=== PATIENT | female | born 1940 | race Caucasian/White ===

== ENCOUNTER 2016-07-10 16:08 | Emergency (ER) | payer OTHER ==
[~2016-07-10] VITALS: Ht 167.6 cm; Wt 63.4 kg
[~2016-07-10 16:08] MED LIST: AZITTAB PO
[2016-07-10 16:13] VITALS: Ht 167.6 cm; Wt 63.4 kg
[2016-07-10] MEDS ORDERED: BUPIVACAINE 0.5 % 5 MG/1 ML MPF 30ML VIAL INFIL STA (16:23)
[2016-07-10] MEDS ORDERED: XYLOCAINE 1%/SOD BICARB 20 ML VIAL INFIL STA (16:23)
[2016-07-10] MEDS ORDERED: DIPHTHERIA/TETANUS/PERTUSSIS 0.5 ML SYR/VIAL IM. ONE (16:30)
[2016-07-10] MEDS ORDERED: GLC500 PO (16:47)
[2016-07-10] MEDS ORDERED: LOSA50TA6 PO (16:47)
[2016-07-10] MEDS ORDERED: HYG25 PO (16:47)
[2016-07-10] MEDS ORDERED: CHOL1000 PO (16:47)
[2016-07-10] MEDS ORDERED: SIMV40TA2 PO (16:47)
--- NOTE | 2016-07-10 17:20 | EMERGENCY ROOM VISIT NOTE ---
ED Visit Note First contact with patient: 16:17 I have seen and examined this patient with Dennys Duke and generally agree with the treatment plan as discussed. Problem List Medical Problems: (1) Diabetes Status: Chronic (2) Hypertension Status: Chronic Current/Historical Medications Scheduled Chlorthalidone (Chlorthalidone), 12.5 MG PO DAILY Cholecalciferol (Vitamin D3), 1 TAB PO DAILY Losartan Potassium (Cozaar), 50 MG PO DAILY Metformin HCl (Metformin HCl), 500 MG PO DAILY Simvastatin (Zocor), 40 MG PO QPM Allergies Uncoded Allergies: AB (Allergy, Unknown, hives, 01/20/16) Vital Signs Date Time Temp Pulse Resp B/P Pulse Ox O2 Delivery O2 Flow Rate FiO2 07/10/16 16:13 37.4 92 18 131/80 94 Room Air Medications Administered Medications (Trade) Dose Ordered Sig/Sandy Route Start Time Stop Time Status Last Admin Dose Admin Diphtheria/ Pertussis/Tetanus Vacc (Adacel Inj) 0.5 ml ONCE ONCE IM. 07/10/16 16:30 07/10/16 16:31 DC 07/10/16 17:11 0.5 ML Departure Information Referrals Kerri Kaufman PA-C (PCP) Patient Instructions My [facility]
[2016-07-10] MEDS ORDERED: CEPH500C PO (17:51)
--- NOTE | 2016-07-10 17:52 | EMERGENCY ROOM VISIT NOTE ---
ED Visit Note First contact with patient: 16:17 Chief Complaint: Right finger injury History of Present Illness: This patient is a 75 year old female who presents to the Emergency Department via private vehicle for evaluation of their left index finger laceration. Patient sustained the laceration while attempting to remove linoleum from the floor and would when a nail from the piece of wood struck her finger. They report a moderate amount of bleeding initially. They deny any numbness or tingling into the distal extremity. They report no decreased range of motion of the affected digit. Patient rates her current discomfort as a 8/10. Patient's Tetanus status is not currently up-to-date. Medications: As noted below Allergies: As noted below PMH: As noted below SHx: Patient lives at home by herself. ROS: All pertinent positive and negative review of systems are appropriately documented in the History of Present Illness. Physical Exam: VITAL SIGNS - Vital signs and nursing notes were reviewed. GENERAL -75-year-old female appearing her stated age who is in no acute distress. Communicates well with provider and answers questions appropriately. SKIN - There is a 2 cm long laceration noted along the ventral aspect of the right index finger pad. The edges gape apart with traction. No foreign bodies appreciated. Upon further examination there are no deep structures including vessel, tendon, or bony structures appreciated. There is minimal active bleeding noted. MUSCULOSKELETAL - Laceration as described above. +5/5 strength appreciated of the affected digit. Full range of motion of the affected digit. NEUROLOGIC - Spinothalamic tract was found to be intact with ability to discriminate sharp versus dull sensation at the level of hip joint down do the great toe. No sensory defects of the dorsal column were appreciated utilizing light touch for evaluation. VASCULAR - Capillary refill was brisk. IMAGING: RIGHT INDEX FINGER 3 VIEWS HISTORY: Right index finger laceration Right COMPARISON: None. FINDINGS: There is no fracture or dislocation. Soft tissue laceration at the distal right index finger. 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 Mild ulnar subluxation at the DIP joint of the index finger is likely due to the long-standing degenerative change. No radiopaque foreign bodies. IMPRESSION: Soft tissue laceration at the distal right index finger. No fractures. Electronically signed by: Easton Crouch M.D. 07/10/2016 5:52 PM Dictated Date/Time: 07/10/2016 5:51 PM ED Course: Patient was seen and evaluated by myself. Risks and benefits of performing primary wound closure versus no repair were discussed with the patient who verbalizes understanding. Verbal consent was obtained prior to performing the procedure. 5 cc of in a 50/50 1% buffered lidocaine and 0.5% bupivacaine was used to perform a digital block of the right index finger . The wound was cleansed and prepped in the typical sterile fashion utilizing normal saline and Betadine. The wound was sterilely draped. Once proper anesthetization was established, the wound was further examined and demonstrated a laceration without deep involvement. The wound was copiously irrigated with normal saline and Betadine. This region was pressure irrigated with normal saline The wound was closed using 6 simple, 5-0 nylon sutures with the wound edges being well approximated. Patient tolerated the procedure well. No complications were met. The wound was cleansed and dressed with a Bacitracin dressing. Patient received their Adacel vaccination. Patient educated on worrisome symptoms for return visit to the Emergency Department. Patient discharged to home in good condition. She was given Keflex 500 mg 3 times a day for 7 days for infection prophylaxis. This was done due to the severity of the laceration as well as being diabetic. Radiograph results as above. The findings were felt to be chronic. Problem List Medical Problems: (1) Diabetes Status: Chronic (2) Hypertension Status: Chronic Current/Historical Medications Scheduled Cephalexin Monohydrate (Keflex), 500 MG PO TID Chlorthalidone (Chlorthalidone), 12.5 MG PO DAILY Cholecalciferol (Vitamin D3), 1 TAB PO DAILY Losartan Potassium (Cozaar), 50 MG PO DAILY Metformin HCl (Metformin HCl), 500 MG PO DAILY Simvastatin (Zocor), 40 MG PO QPM Allergies Uncoded Allergies: AB (Allergy, Unknown, hives, 01/20/16) Vital Signs Date Time Temp Pulse Resp B/P Pulse Ox O2 Delivery O2 Flow Rate FiO2 07/10/16 18:12 37.4 88 18 126/78 95 07/10/16 18:11 88 18 126/78 95 Room Air 07/10/16 16:13 37.4 92 18 131/80 94 Room Air Medications Administered Medications (Trade) Dose Ordered Sig/Sandy Route Start Time Stop Time Status Last Admin Dose Admin Diphtheria/ Pertussis/Tetanus Vacc (Adacel Inj) 0.5 ml ONCE ONCE IM. 07/10/16 16:30 07/10/16 16:31 DC 07/10/16 17:11 0.5 ML Departure Information Impression Primary Impression: Laceration Dispostion Home / Self-Care Condition GOOD Prescriptions Cephalexin Monohydrate (Keflex) 500 Mg Cap 500 MG PO TID for 7 Days, #21 CAP Prov: Dennys Johnson PA-C 07/10/16 Referrals Kerri Kaufman PA-C (PCP) Rohan Connell MD Patient Instructions My [facility] Additional Instructions Discharge Instructions: You have received 6 sutures on your left finger. These sutures are NOT dissolvable and WILL need to be removed by a health care provider in 12 days. You can return to the Emergency Department or contact your Primary Care Provider to have the sutures removed. Proper wound care is essential for adequate wound healing and infection prevention. You can shower and clean the wound with soap and water. Do not scour over the wound, pat dry with a towel. Do not submerse the wound (i.e. bathe or dish wash) until the sutures have been removed. You can use an antibiotic ointment with a dressing over the wound for the next 3-4 days. After this time you may leave the wound dry and open to the air. If crust develops over the wound you can use a Q-tip to apply a 1:1 peroxide:water solution to clean the wound. Keflex 500 mg 3 times daily for 7 days to help prevent infection. Look for signs of infection of the wound including: increased pain, swelling, foul discharge, streaking, or increased temperature. If any of these are noticed you should return to the Emergency Department for further assessment and treatment. As with any laceration you may have received nerve damage to the surrounding tissues. This damage may or may not be permanent. You should keep the area covered with sunscreen for the first 6 months to 1 year when at risk for exposure to help minimize scarring. You can also use scar reducing creams or Vitamin E oil to help minimize scarring. For pain control, you can use the following [id number] medicines (if >12 yo): - Regular strength (325mg/tab) Tylenol (acetaminophen) 2 tabs every 4-6 hours as needed. Do not exceed 12 tablets in a 24 hour period. Avoid taking more than 4 grams (4000 mg) of Tylenol per day. This includes any other sources of acetaminophen you may take on a regular basis. - Regular strength (200 mg/tab) Advil (ibuprofen) 1-2 tabs every 4-6 hours as needed. Do not exceed a dose of 3200 mg per day. You've been provided the phone number for an production support specialist for your finger. Please call them as soon as possible schedule follow-up regarding today 's visit. Return to the emergency department if your symptoms worsen despite treatment course outlined above.
[2016-07-10 18:12] VITALS: BP 126/78; PULSE 88; TEMP 37.4; O2SAT 95
== END 2016-07-10 18:13 | disposition home or self-care (01) ==
LOC: C.EDB 16:09 → C.EDD 18:13
DX: S61.210A Laceration without foreign body of right index finger without damage to nail, initial encounter (principal); W26.8XXA Contact with other sharp object(s), not elsewhere classified, initial encounter; Z23 Encounter for immunization; E11.9 Type 2 diabetes mellitus without complications; I10 Essential (primary) hypertension; Z79.84 Long term (current) use of oral hypoglycemic drugs; Z79.899 Other long term (current) drug therapy

== ENCOUNTER → 2016-09-22 | Outpatient (CLI) | payer OTHER ==
[~2016-09-22] MED LIST changes: -AZITTAB PO; +CHOL1000 PO; +GLC500 PO; +HYG25 PO; +LOSA50TA6 PO; +SIMV40TA2 PO
--- NOTE | 2016-09-22 16:58 | MAMMOGRAPHY REPORT ---
BILATERAL DIGITAL SCREENING MAMMOGRAM TOMOSYNTHESIS WITH CAD: 09/22/2016 CLINICAL HISTORY: Routine screening. Patient has no complaints. TECHNIQUE: Breast tomosynthesis in addition to standard 2D mammography was performed. Current study was also evaluated with a Computer Aided Detection (CAD) system. COMPARISON: Comparison is made to exams dated: 04/08/2015 mammogram, 02/08/2014 mammogram, 11/08/2012 mammogram, 11/02/2011 mammogram, 10/29/2010 mammogram, and 10/28/2009 mammogram - [facility]. BREAST COMPOSITION: There are scattered areas of fibroglandular density in both breasts. FINDINGS: No suspicious masses, calcifications, or areas of architectural distortion are noted in e ither breast. There has been no significant interval change compared to prior exams. IMPRESSION: ACR BI-RADS CATEGORY 1: NEGATIVE There is no mammographic evidence of malignancy. A 1 year screening mammogram is recommended. The p atient will receive written notification of the results. Approximately 10% of breast cancers are not detected with mammography. A negative mammographic repor t should not delay biopsy if a clinically suggestive mass is present. Kelly Valdez M.D. ah/:09/22/2016 16:02:37 [employer]: Monique SAHNI(R)(M), [facility] letter sent: Normal 1/2 BI-RADS Code: ACR BI-RADS Category 1: Negative
== END | disposition home or self-care (01) ==
LOC: C.MAMM 12:56
PROVIDERS: ATTEND Physician Assistant
DX: Z12.31 Encounter for screening mammogram for malignant neoplasm of breast (principal)

== ENCOUNTER → 2017-10-05 | Outpatient (CLI) | payer OTHER ==
--- NOTE | 2017-10-06 15:34 | MAMMOGRAPHY REPORT ---
BILATERAL DIGITAL SCREENING MAMMOGRAM TOMOSYNTHESIS WITH CAD: 10/05/2017 CLINICAL HISTORY: Routine screening. Patient has no complaints. TECHNIQUE: Breast tomosynthesis in addition to standard 2D mammography was performed. Current study was also evaluated with a Computer Aided Detection (CAD) system. COMPARISON: Comparison is made to exams dated: 09/22/2016 mammogram, 04/08/2015 mammogram, 02/08/2014 m ammogram, 11/08/2012 mammogram, 11/02/2011 mammogram, and 10/28/2009 mammogram - [facility]. BREAST COMPOSITION: There are scattered areas of fibroglandular density in both breasts. FINDINGS: No suspicious masses, calcifications, or areas of architectural distortion are noted in ei ther breast. There has been no significant interval change compared to prior exams. Bilateral benign -appearing calcifications are not significantly changed. IMPRESSION: ACR BI-RADS CATEGORY 2: BENIGN There is no mammographic evidence of malignancy. A 1 year screening mammogram is recommended. The pa tient will receive written notification of the results. Approximately 10% of breast cancers are not detected with mammography. A negative mammographic report should not delay biopsy if a clinically suggestive mass is present. Kelly Valdez M.D. /:10/05/2017 15:46:24 Industrial Education Instructor: Marcia LAMBERT)(Suzie), [facility] letter sent: Normal 1/2 BI-RADS Code: ACR BI-RADS Category 2: Benign
== END | disposition home or self-care (01) ==
LOC: C.MAMM 15:11
PROVIDERS: ATTEND Physician Assistant
DX: Z12.31 Encounter for screening mammogram for malignant neoplasm of breast (principal)

== ENCOUNTER 2023-12-07 10:46 | Inpatient (IN) ==
--- NOTE | 2023-12-07 11:17 | Emergency Department Note ---
Impression & Plan Fever, Immunocompromised, Hypomagnesemia, Non-ST elevation [place] (NSTEMI), Elevated procalcitonin ED Provider Note HISTORY OF PRESENT ILLNESS: Patient is an 83-year-old female presenting with a fever and fatigue. Patient reports that yesterday she was feeling very rundown. She was outside all day with her grandson playing in the pool but had less energy than normal. She woke up today and was still feeling this way and noticed that she had a fever. She also had an episode of "explosive diarrhea." She called 911. Patient just did a round of chemotherapy yesterday. This is her fifth round of chemo. Denies any chest pain or shortness of breath. She does have an intermittent cough occasionally, but states this been ongoing for a number of weeks. Denies any abdominal pain, nausea or vomiting. Denies any dysuria or hematuria. Denies any recent sick contact exposures that she is aware of. Denies any recent travel. Patient reports that her port was placed about 6 weeks ago. ROS: as above PHYSICAL EXAM: Constitutional: Patient appears in no acute distress. HENT: Head: Normocephalic and atraumatic. Eyes: EOMI, PERRL Mouth/Throat: Mucous membranes moist. Neck: Trachea midline. Neck supple. Cardiovascular: RRR, No murmurs, rubs or gallops. Intact distal pulses. Pulmonary/Chest: No respiratory distress. Breath sounds clear and equal bilaterally. No wheezes or rales Abdominal: Abdomen soft, no tenderness, rebound or guarding. Musculoskeletal: No edema, tenderness or deformity noted. Skin: Warm and dry. No rash, erythema, pallor or cyanosis Psychiatric: Appropriate mood and affect for situation. Neurological: Alert and keenly responsive. CN II-XII grossly intact, moving all extremities equally and fully. MDM: - Vitals signs showed fever. Patient given 1g IV tylenol for fever - History obtained via patient. History as above. - Chronic conditions affecting care: HTN; HLD; breast cancer (on chemo) - Differential diagnoses include, but are not limited to: Bacteremia; UTI; pneumonia; viral syndrome; port infection - Order placed for continuous cardiac monitoring. At this time, monitor showed rate of 81 bpm with normal sinus rhythm, per my interpretation. - External medical records reviewed. - EKG interpreted by myself showed normal sinus rhythm. Rate 82 bpm. QT 374. No acute ischemic changes. - Laboratory workup interpreted by myself showed leukopenia (WBC 3.64); anemia (Hgb 11.4); stable electrolytes; normal lactate; hypocalcemia (Ca 7.7); hypomagnesemia (Mg 1.2); elevated AST (50); elevated troponin (24.7); elevated procalcitonin (1.37) - Blood cultures obtained - one culture from port obtained - CXR negative for pneumonia, per my interpretation - VBG normal - Viral respiratory panel negative - Patient given 2L NS in ER. Her sepsis fluid volume resuscitation based on ideal body weight is 1636.20 mL - Given 2g IV rocephin and IV vancomycin for empiric antibiotic coverage. MRSA DNA swab was ordered. - UA ordered but not yet obtained. - Patient still remained febrile in the ER. Given 15 mg IV toradol - 1g IV magnesium ordered for electrolyte replacement - Discussion was had with case mgr about patient's case and need for admission - Hospitalist consulted for admission - Patient admitted to [facility]ist service for further evaluation and management. ASSESSMENT AND PLAN: Diagnosis: fever; immunocompromised; hypomagnesemia; NSTEMI; elevated procalcitonin Plan: admit Past Med/Surg History Problem List (Updated 12/07/23 @ 13:35 by Rosy Vera MD) Elevated procalcitonin (Acute) Non-ST elevation [place] (NSTEMI) (Acute) Hypomagnesemia (Acute) Immunocompromised (Acute) Fever (Acute) Diabetes (Chronic) Hypertension (Chronic) Encounter for pre-operative examination Medical History Back problem "last vertebrae in back shifted to left" Hiatal hernia HTN (hypertension) Hypercholesteremia Pre-diabetes diet control Surgical History History of cataract surgery left History of colonoscopy History of endoscopy History of oral surgery BUMPS ON ROOF OF MOUTH REMOVED History of vein stripping 30 YR AGO Family History Grandmother Family history of diabetes mellitus Mother Family history of diabetes mellitus Brother Family history of diabetes mellitus Other Family history of MS (multiple sclerosis) Family history of throat cancer Social History Smoking Status: Unknown if ever smoked Second Hand Exposure: No; Do You Dip or Chew Tobacco: No; Hx Alcohol Use: No Hx Substance Use: No Preferred Language: Lithuanian Communication Ability: Effective Dining Services Manager Required: No Beliefs That Will Affect Care: None Current Living Situation: Alone Feels Safe at Home: Yes Assistive Devices: Denture - Upper, Glasses and Hearing Aid - Bilateral Allergies Allergies Allergy/AdvReac Type Severity Reaction Status Date / Time lisinopril Allergy Severe Swelling Verified 01/20/21 09:32 of Lip/Tongue/Throat oxymetazoline Allergy Intermediate Hives Verified 01/20/21 09:32 [From Daily Te[place]] Home Meds Home Medications Medication Instructions Recorded Confirmed atorvastatin 40 mg tablet 40 mg PO QPM 12/12/20 01/14/21 chlorthalidone 25 mg tablet 12.5 mg PO QAM 12/12/20 01/14/21 cholecalciferol (vitamin D3) 25 25 mcg PO DAILY 12/12/20 01/14/21 mcg (1,000 unit) tablet (Vitamin D3) losartan 50 mg tablet 75 mg PO QAM 12/12/20 01/14/21 vit C 250 mg-vit E 90 mg-zinc 40 2 tab PO QAM 12/12/20 01/14/21 mg-copper 1 sm-hogmme-atosac capsule (PreserVision AREDS-2) Results & Data (ED) Vital Signs Vital Signs - 24 hr 12/07/23 11:00 12/07/23 11:00 12/07/23 11:15 Temperature 37.8 C H Temperature Source Oral Pulse Rate 84 86 Pulse Rate from SpO2 Sensor 74 Respiratory Rate 18 16 Respiratory Effort / Characteristics Non-Labored Spontaneous Respiratory Depth Normal Blood Pressure 107/74 Blood Pressure Mean 85 Pulse Oximetry 95 93 95 Oxygen Delivery Method Room Air Room Air Sepsis Recent Fever Within 48 Hours Yes Sepsis New/Unexplained Change in Mental Status No Sepsis Action Taken by Nursing No Action Required 12/07/23 11:19 12/07/23 11:27 12/07/23 11:46 Temperature Temperature Source Pulse Rate 84 83 Pulse Rate from SpO2 Sensor 79 Respiratory Rate 23 Respiratory Effort / Characteristics Respiratory Depth Blood Pressure 102/49 L Blood Pressure Mean 72 Pulse Oximetry 93 Oxygen Delivery Method Sepsis Recent Fever Within 48 Hours Sepsis New/Unexplained Change in Mental Status Sepsis Action Taken by Nursing 12/07/23 12:00 12/07/23 12:00 12/07/23 12:30 Temperature Temperature Source Pulse Rate 82 Pulse Rate from SpO2 Sensor 69 Respiratory Rate 17 Respiratory Effort / Characteristics Respiratory Depth Blood Pressure 93/47 L 96/44 L Blood Pressure Mean 70 51 Pulse Oximetry 92 Oxygen Delivery Method Sepsis Recent Fever Within 48 Hours Sepsis New/Unexplained Change in Mental Status Sepsis Action Taken by Nursing 12/07/23 12:30 12/07/23 12:45 Temperature 37.8 C H Temperature Source Oral Pulse Rate 81 Pulse Rate from SpO2 Sensor Respiratory Rate 20 Respiratory Effort / Characteristics Respiratory Depth Blood Pressure Blood Pressure Mean Pulse Oximetry Oxygen Delivery Method Sepsis Recent Fever Within 48 Hours Sepsis New/Unexplained Change in Mental Status Sepsis Action Taken by Nursing Laboratory Data 12/07/23 11:05 12/07/23 11:05 Lab Results 12/07/23 12/07/23 12/07/23 Range/Units 11:05 11:06 11:35 WBC 3.64 L (4.8-10.8) K/ul RBC 3.64 L (4.20-5.40) M/uL Hgb 11.4 L (12.0-16.0) g/dl Hct 33.2 L (37.0-47.0) % MCV 91.2 (80.0-100.0) fL MCH 31.3 (25.0-34.0) pg MCHC 34.3 (32.0-36.0) g/dL RDW Std Deviation 47.8 H (36.4-46.3) fL RDW Coeff of Ann 14.7 H (11.5-14.5) % Plt Count 147 (130-400) K/uL MPV 11.1 (9.4-12.4) fL Immature Gran % (Auto) 1.4 % Neut % (Auto) 90.1 % Lymph % (Auto) 3.3 % [place] % (Auto) 4.4 % Eos % (Auto) 0.0 % Baso % (Auto) 0.8 % Neut # (Auto) 3.28 (1.40-6.50) K/uL Lymph # (Auto) 0.12 L (1.20-3.40) K/uL [place]asta # (Auto) 0.16 (0.11-0.59) K/uL Eos # (Auto) 0.00 (0.00-0.50) K/uL Baso # (Auto) 0.03 (0.00-0.20) K/uL Immature Gran # (Auto) 0.05 (0.01-0.20) K/uL PT 12.4 H (9.0-12.0) Seconds INR 1.2 H (0.9-1.1) VBG pH 7.41 (7.36-7.41) VBG pCO2 39 (38-50) mmHg VBG pO2 23 mmHg VBG HCO3 25 mmol/L VBG O2 Saturation < 60.0 % VBG Base Excess 0.1 mEq/L Sodium 133 L (136-145) mmol/L Potassium 3.6 (3.5-5.1) mmol/L Chloride 101 (98-107) mmol/L Carbon Dioxide 23 (21-32) mmol/L Anion Gap 9 (3-11) BUN 22 (6-23) mg/dl Creatinine 0.92 (0.6-1.2) mg/dl Est Cr Clr Drug Dosing 39.3 ml/min Est GFR ( Amer) 66.3 ml/min Est GFR (Non-Af Amer) 57.2 ml/min BUN/Creatinine Ratio 23.9 H (10-20) Glucose 144 H (70-99(Fasting)) mg/dl Lactate 1.9 (0.4-2.0) mmol/L Calcium 7.7 L (8.6-10.3) mg/dl Magnesium 1.2 L (1.7-2.4) mg/dl Total Bilirubin 0.8 (0.2-1.0) mg/dl Direct Bilirubin 0.1 (0-0.2) mg/dl AST 50 H (13-39) U/L ALT 30 (7-52) U/L Alkaline Phosphatase 44 (34-104) U/L Troponin I High Sens 24.7 H (0-14) pg/ml Total Protein 5.9 L (6.0-8.3) gm/dl Albumin 3.4 (3.4-5.0) gm/dl Procalcitonin 1.37 H (0-0.5) ng/ml Adenovirus (PCR) Not Detected (NotDetected) B. pertussis DNA (PCR) Not Detected (NotDetected) B.parapertussis DNA PCR Not Detected (NotDetected) C. pneumoniae DNA (PCR) Not Detected (NotDetected) Coronavirus OC43 (PCR) Not Detected (NotDetected) Coronavirus HKU1 (PCR) Not Detected (NotDetected) Coronavirus 229E (PCR) Not Detected (NotDetected) SARS-CoV-2 (PCR) Not Detected (NotDetected) Coronavirus NL63 (PCR) Not Detected (NotDetected) Human Metapneumovir PCR Not Detected (NotDetected) Influenza Type A (PCR) Not Detected (NotDetected) Influenza Type B (PCR) Not Detected (NotDetected) M. pneumoniae (PCR) Not Detected (NotDetected) Parainfluenza 1 (PCR) Not Detected (NotDetected) Parainfluenza 2 (PCR) Not Detected (NotDetected) Parainfluenza 3 (PCR) Not Detected (NotDetected) Parainfluenza 4 (PCR) Not Detected (NotDetected) RSV (PCR) Not Detected (NotDetected) Entero/Rhino (PCR) Not Detected (NotDetected) Administered Medications Vancomycin HCl 1,500 mg/ (Sodium Chloride) 530 mls @ 200 mls/hr IV NOW ONE Stop: 12/07/23 14:53 Last Admin: 12/07/23 12:40 Dose: 200 mls/hr Documented By: GERRI Discontinued Medications Sodium Chloride (Nss) 1,000 mls @ 999 mls/hr IV .Q1H1M MURPHY Stop: 12/07/23 13:15 Last Admin: 12/07/23 12:41 Dose: 999 mls/hr Documented By: Infusion: 12/07/23 12:34 Dose: Infused Documented By: Admin: 12/07/23 11:33 Dose: 999 mls/hr Documented By: GERRI Acetaminophen (Ofirmev) 1,000 mg in 100 mls @ 400 mls/hr IV NOW STA Stop: 12/07/23 11:31 Last Infusion: 12/07/23 12:00 Dose: Infused Documented By: Admin: 12/07/23 11:34 Dose: 400 mls/hr Documented By: GERRI Ceftriaxone Sodium (Rocephin) 2,000 mg in 50 mls @ 100 mls/hr IV NOW STA Stop: 12/07/23 12:18 Last Infusion: 12/07/23 12:35 Dose: Infused Documented By: Admin: 12/07/23 11:57 Dose: 100 mls/hr Documented By: GERRI Ketorolac Tromethamine (Ketorolac Tromethamine 15 Mg/Ml Vial) 15 mg IV NOW ONE Stop: 12/07/23 12:54 Last Admin: 12/07/23 13:19 Dose: 15 mg Documented By: GERRI Imaging Data Radiologist's Impression: Chest X-Ray 12/07/23 11:15 XR chest 1V portable CLINICAL HISTORY: Sepsis TECHNIQUE: Single frontal radiograph of the chest was obtained. Comparison: None available at the time of this dictation. FINDINGS: No lines and tubes are seen. Cardiomegaly is noted. The aortic arch is calcified. Lungs are underinflated but clear. No evidence of pleural effusion or pneumothorax. IMPRESSION: No acute abnormalities and in particular no radiographic evidence of pneumonia. ACT 112: Negative or not required by law. Electronically signed by: Maurice Amado M.D. 12/07/2023 11:37 AM Discharge Plan Visit Data Chief Complaint: Illness ED Provider: Rosy Vera Discharge Problem: Fever, Immunocompromised, Hypomagnesemia, Non-ST elevation [place] (NSTEMI), Elevated procalcitonin Forms Stand Alone Forms: My [facility] Prescriptions Prescriptions: No Action losartan 50 mg Tablet 75 mg PO QAM Patient Comments: 1 and a half in the morning atorvastatin 40 mg Tablet 40 mg PO QPM chlorthalidone 25 mg Tablet 12.5 mg PO QAM cholecalciferol (vitamin D3) [Vitamin D3] 25 mcg (1,000 unit) Tablet 25 mcg PO DAILY PreserVision AREDS-2 250-90-40-1 mg Capsule 2 tab PO QAM Referrals Referrals: PCP,NO [Physician] -
[2023-12-07] MEDS: SODIUM CHLORIDE 0.9% 1,000 ML IV SCH (11:33)
[2023-12-07] MEDS: ACETAMINOPHEN 1,000 MG/100 ML VIAL IV STA (11:34)
--- NOTE | 2023-12-07 11:35 | Electrocardiogram Report ---
Test Reason : Blood Pressure : / mmHG Vent. Rate : 082 BPM Atrial Rate : 082 BPM P-R Int : 110 ms QRS Dur : 070 ms QT Int : 374 ms P-R-T Axes : -02 -08 -40 degrees QTc Int : 436 ms Sinus rhythm with short IA with Premature supraventricular complexes Low voltage QRS Septal infarct , age undetermined Abnormal ECG No previous ECGs available Confirmed by John Crum ([id number]) on 12/07/2023 11:35:00 AM Referred By: Confirmed By:John Crum
--- NOTE | 2023-12-07 11:38 | XRay Report ---
XR chest 1V portable CLINICAL HISTORY: Sepsis TECHNIQUE: Single frontal radiograph of the chest was obtained. Comparison: None available at the time of this dictation. FINDINGS: No lines and tubes are seen. Cardiomegaly is noted. The aortic arch is calcified. Lungs are underinfl ated but clear. No evidence of pleural effusion or pneumothorax. IMPRESSION: No acute abnormalities and in particular no radiographic evidence of pneumonia. ACT 112: Negative or not required by law. Electronically signed by: Maurice Amado M.D. 12/07/2023 11:37 AM
[2023-12-07 11:47] LABS: Hematocrit (blood only) 33.2 % (37.0-47.0); Hemoglobin 11.4 g/dl (12.0-16.0); Mean Corpuscular Hemoglobin 31.3 pg (25.0-34.0); Mean Corpuscular Hgb Conc 34.3 g/dL (32.0-36.0); Mean Corpuscular Volume 91.2 fL (80.0-100.0); Mean Platelet Volume 11.1 fL (9.4-12.4); Platelet Count 147 K/uL (130-400); RDW Coefficient of Variation 14.7 % (11.5-14.5); RDW Standard Deviation 47.8 fL (36.4-46.3); Red Blood Count 3.64 M/uL (4.20-5.40); White Blood Count 3.64 K/ul (4.8-10.8)
[2023-12-07 11:56] LABS: Base Excess VBG 0.1 mEq/L; HCO3 VBG 25 mmol/L; Oxygen Saturation VBG < 60.0 %; PCO2 VBG 39 mmHg (38-50); PO2 VBG 23 mmHg; pH VBG 7.41 (7.36-7.41)
[2023-12-07] MEDS: cefTRIAXone SODIUM 2,000 MG/50 ML BAG IV STA (11:57)
[2023-12-07 12:06] LABS: Albumin Level 3.4 gm/dl (3.4-5.0); BUN Creatinine Ratio 23.9 (10-20); Bilirubin Direct 0.1 mg/dl (0-0.2); Bilirubin,Total 0.8 mg/dl (0.2-1.0); Calcium 7.7 mg/dl (8.6-10.3); Creatinine Clr Calc Pharmacy 39.3 ml/min; Est GFR (African American) 66.3 ml/min; Est GFR (Non-African American) 57.2 ml/min; Magnesium 1.2 mg/dl (1.7-2.4); Potassium 3.6 mmol/L (3.5-5.1); Total Protein 5.9 gm/dl (6.0-8.3)
[2023-12-07 12:09] LABS: Basophils # (auto) 0.03 K/uL (0.00-0.20); Basophils % (auto) 0.8 %; Immature Granulocytes # (auto) 0.05 K/uL (0.01-0.20); Immature Granulocytes % (auto) 1.4 %; Lymphocytes # (auto) 0.12 K/uL (1.20-3.40); Lymphocytes % (auto) 3.3 %; Monocytes # (auto) 0.16 K/uL (0.11-0.59); Monocytes % (auto) 4.4 %; Neutrophils # (auto) 3.28 K/uL (1.40-6.50); Neutrophils % (auto) 90.1 %
[2023-12-07 12:11] LABS: Troponin I High Sensitivity 24.7 pg/ml (0-14)
[2023-12-07] MEDS ORDERED: VANCOMYCIN CONSULT ACTIVE PRN (12:15)
[2023-12-07 12:18] LABS: INR 1.2 (0.9-1.1); Prothrombin Time 12.4 Seconds (9.0-12.0)
[2023-12-07] MEDS: VANCOMYCIN HCL 1,500 MG in SODIUM CHLORIDE 0.9% 500 ML IV ONE (12:40)
[2023-12-07 12:44] LABS: Adenovirus PCR Not Detected (NotDetected); Bordetella parapertussis PCR Not Detected (NotDetected); Bordetella pertussis PCR Not Detected (NotDetected); Chlamydia pneumoniae PCR Not Detected (NotDetected); Coronavirus 229E PCR Not Detected (NotDetected); Coronavirus CoV-2 (COVID19)PCR Not Detected (NotDetected); Coronavirus HKU1 PCR Not Detected (NotDetected); Coronavirus NL63 PCR Not Detected (NotDetected); Coronavirus OC43PCR Not Detected (NotDetected); Human Metapneumovirus PCR Not Detected (NotDetected); Influenza A PCR Not Detected (NotDetected); Influenza B PCR Not Detected (NotDetected); Mycoplasma pneumoniae PCR Not Detected (NotDetected); Parainfluenza Virus 1 PCR Not Detected (NotDetected); Parainfluenza Virus 2 PCR Not Detected (NotDetected); Parainfluenza Virus 3 PCR Not Detected (NotDetected); Parainfluenza Virus 4 PCR Not Detected (NotDetected); Respiratory Syncytial VirusPCR Not Detected (NotDetected); Rhinovirus/Enterovirus PCR Not Detected (NotDetected)
[2023-12-07] MEDS: KETOROLAC TROMETHAMINE 15 MG/ML VIAL IV ONE (13:19)
[2023-12-07] MEDS: MAGNESIUM SULFATE / D5W 1 GM/100 ML BAG IV STA (13:41)
--- NOTE | 2023-12-07 13:41 | History & Physical Report ---
Date of Service December 07, 2023 Assessment & Plan (1) Hypomagnesemia: (2) Immunocompromised: (3) Fever: Plan This is an 83-year-old female who has significant past medical history of left breast cancer (Invasive mammary carcinoma grade 3), HTN, HLD, macular degeneration, T2DM presents to ED secondary to fever, fatigue and weakness x 1 day. Generalized weakness Fever Diarrhea Leukopenia Hypotension Possible sepsis Likely secondary to chemotherapy Rule out infection Procalcitonin 1.37 -BioFire negative -CXR:No acute abnormalities and in particular no radiographic evidence of pneumonia. -- Blood cultures pending Continue IV fluids Started on broad-spectrum antibiotics with vancomycin, Zosyn Will obtain stool studies if recurrence of diarrhea Urinalysis pending Syncope Unwitnessed Likely secondary to hypotension Obtain CT head Will also do EEG for completeness Monitor for any arrhythmias Check orthostatics Check Resting ECHO Mild troponin elevation Likely demand ischemia secondary to hypotension EKG showed no signs of acute ischemia Patient denies any chest pain, dyspnea Hypomagnesemia Monitor and replete electrolytes as needed Oral thrush Started on nystatin Hypertension Hypotensive currently Hold losartan Monitor Hyperlipidemia Hold Lipitor as recommended by Oncology given chemotherapy yesterday Left breast cancer (Invasive mammary carcinoma grade 3) Currently on chemotherapy Follows with oncology Dr. Palacios as outpatient DVT Px: Lovenox SQ CODE STATUS Full code as per my discussion with patient and patient's family I, Taya Garcia, Spent approx 20 minutes reviewing chart, outpt medical records and discussing with Dr. Moe. I did physically see the patient as this was done by Dr. Moe, please refer to his notes for further details. History of Present Illness Chief Complaint: Fever, fatigue and weakness x 1 day. Primary Care Provider: Toby Bell MD This is an 83-year-old female who has significant past medical history of left breast cancer (Invasive mammary carcinoma grade 3), HTN, HLD, macular degeneration, T2DM presents to ED secondary to fever, fatigue and weakness x 1 day. she is status post her fifth round of chemotherapy (carboplatin and taxol) with the next step to be a left lumpectomy and sentinel node biopsy under general anesthesia. She also was ordered pegfilgrastim. Her last treatment was yesterday on 12/06/2023. She had a mediport placed [address] Mariah Abdul on 11/02/23. History is obtained from both patient and patient's grandson at bedside. Patient states that she was doing well until yesterday. After the chemotherapy, patient felt very cold and had transient chills which resolved at bedtime. She was noted to be unconscious while in bed this morning by her grandson and had incontinence of stool. Patient's family informs that she had :explosive" diarrhea. On waking her up, patient was transiently lethargic as per family. She states feeling very tired today and had fever. No known seizure activity. Currently patient is oriented during encounter. Patient has tolerated chemotherapy well in the past with no issues as per patient/family. She was noted to have oral thrush by her chemo nurse yesterday. Reports intermittent dry cough which she attributes to dry mouth. She admits to have very poor oral intake/decreased appetite for about 2 weeks. Denies any history of chest pain, dyspnea, dizziness, wheezing, hemoptysis, fall, head trauma, headache, focal weakness, numbness, change in vision, slurred speech, facial deformity, nausea, vomiting, abdominal pain, blood in stools, weight loss, dysuria, hematuria. Allergies Allergy/AdvReac Type Severity Reaction Status Date / Time lisinopril Allergy Severe Swelling Verified 01/20/21 09:32 of Lip/Tongue/Throat oxymetazoline Allergy Intermediate Hives Verified 01/20/21 09:32 [From Daily Te[place]] Home Medications Medication Instructions Recorded Confirmed Type atorvastatin 40 mg tablet 40 mg PO DAILY 12/07/23 12/07/23 History lidocaine-prilocaine 2.5 %-2.5 % 1 applic topical UD 12/07/23 12/07/23 History topical cream losartan 50 mg tablet 75 mg PO DAILY 12/07/23 12/07/23 History ondansetron HCl 8 mg tablet 8 mg PO Q8 PRN Nausea And Vomiting 12/07/23 12/07/23 History vitamin A-vitamin C-vit E-min 1 tab PO DAILY 12/07/23 12/07/23 History tablet Past Med/Surg History Problem List Elevated procalcitonin (Acute) Non-ST elevation UT (NSTEMI) (Acute) Hypomagnesemia (Acute) Immunocompromised (Acute) Fever (Acute) Diabetes (Chronic) Hypertension (Chronic) Encounter for pre-operative examination Medical History Breast cancer in female L breast dx September 2023 Back problem "last vertebrae in back shifted to left" Hiatal hernia Pre-diabetes diet control Hypercholesteremia HTN (hypertension) Surgical History History of cataract surgery left History of endoscopy History of colonoscopy History of oral surgery BUMPS ON ROOF OF MOUTH REMOVED History of vein stripping 30 YR AGO Family History Grandmother Family history of diabetes mellitus Mother Family history of diabetes mellitus Brother Family history of diabetes mellitus Other Family history of MS (multiple sclerosis) Family history of throat cancer Social History Smoking Status: Never smoker Second Hand Exposure: No; Do You Dip or Chew Tobacco: No; Hx Alcohol Use: No Hx Substance Use: No Preferred Language: German Communication Ability: Effective Bi Lead Required: No Beliefs That Will Affect Care: None Current Living Situation: Alone Feels Safe at Home: Yes Assistive Devices: Denture - Upper, Glasses and Hearing Aid - Bilateral Review of Systems Review of Systems: All systems reviewed & are unremarkable except as noted in HPI & below Physical Exam Physical Exam: please refer to Dr. Moe addendum for physical exam findings. Results & Data Results & Data Vital Signs (Past 12 Hours) Vital Signs Temp Pulse Resp BP Pulse Ox O2 Del Method 12/07/23 12:45 37.8 C H 12/07/23 12:30 81 20 12/07/23 12:30 96/44 L 12/07/23 12:00 82 17 92 12/07/23 12:00 93/47 L 12/07/23 11:46 102/49 L 12/07/23 11:27 83 23 93 12/07/23 11:19 84 12/07/23 11:15 86 16 95 12/07/23 11:00 93 Room Air 12/07/23 11:00 37.8 C H 84 18 107/74 95 Room Air Laboratory Results I have independently reviewed and interpreted patient's admitting labs including CBC, CMP, PT/INR, vbg, resp biofire mag and troponin. Diagnostic Findings Chest X-Ray 12/07/23 11:15 XR chest 1V portable CLINICAL HISTORY: Sepsis TECHNIQUE: Single frontal radiograph of the chest was obtained. Comparison: None available at the time of this dictation. FINDINGS: No lines and tubes are seen. Cardiomegaly is noted. The aortic arch is calcified. Lungs are underinflated but clear. No evidence of pleural effusion or pneumothorax. IMPRESSION: No acute abnormalities and in particular no radiographic evidence of pneumonia. ACT 112: Negative or not required by law. Electronically signed by: Maurice Amado M.D. 12/07/2023 11:37 AM Medications Administered Medication List Vancomycin HCl 1,500 mg/ (Sodium Chloride) 530 mls @ 200 mls/hr IV NOW ONE Stop: 12/07/23 14:53 Last Admin: 12/07/23 12:40 Dose: 200 mls/hr Documented By: GERRI Magnesium Sulfate/Dextrose (Magnesium Sulfate / D5w) 1 gm in 100 mls @ 100 mls/hr IV NOW STA Stop: 12/07/23 14:32 Last Admin: 12/07/23 13:41 Dose: 100 mls/hr Documented By: GERRI Discontinued Medications Sodium Chloride (Nss) 1,000 mls @ 999 mls/hr IV .Q1H1M MURPHY Stop: 12/07/23 13:15 Last Infusion: 12/07/23 13:43 Dose: Infused Documented By: Admin: 12/07/23 12:41 Dose: 999 mls/hr Documented By: Infusion: 12/07/23 12:34 Dose: Infused Documented By: Admin: 12/07/23 11:33 Dose: 999 mls/hr Documented By: DS Acetaminophen (Ofirmev) 1,000 mg in 100 mls @ 400 mls/hr IV NOW STA Stop: 12/07/23 11:31 Last Infusion: 12/07/23 12:00 Dose: Infused Documented By: Admin: 12/07/23 11:34 Dose: 400 mls/hr Documented By: DS Ceftriaxone Sodium (Rocephin) 2,000 mg in 50 mls @ 100 mls/hr IV NOW STA Stop: 12/07/23 12:18 Last Infusion: 12/07/23 12:35 Dose: Infused Documented By: Admin: 12/07/23 11:57 Dose: 100 mls/hr Documented By: GERRI Ketorolac Tromethamine (Ketorolac Tromethamine 15 Mg/Ml Vial) 15 mg IV NOW ONE Stop: 12/07/23 12:54 Last Admin: 12/07/23 13:19 Dose: 15 mg Documented By: GERRI ECG Additional Comments: I have independently reviewed and interpreted patient's admitting EKG which revealed: 82 PVC qtc 436ms COVID-19 Results Results COVID-19 Adm Lab Results: RBC 3.64 M/uL (4.20-5.40) L 12/07/23 WBC 3.64 K/ul (4.8-10.8) L 12/07/23 Hgb 11.4 g/dl (12.0-16.0) L 12/07/23 Hct 33.2 % (37.0-47.0) L 12/07/23 Plt Count 147 K/uL (130-400) 12/07/23 Neutrophils (%) (Auto) 90.1 % 12/07/23 Lymphocytes (%) (Auto) 3.3 % 12/07/23 Monocytes # (Auto) 0.16 K/uL (0.11-0.59) 12/07/23 Eosinophils # (Auto) 0.00 K/uL (0.00-0.50) 12/07/23 Immature Granulocyte % (Auto) 1.4 % 12/07/23 Neutrophils # (Auto) 3.28 K/uL (1.40-6.50) 12/07/23 Lymphocytes # (Auto) 0.12 K/uL (1.20-3.40) L 12/07/23 Monocytes # (Auto) 0.16 K/uL (0.11-0.59) 12/07/23 Eosinophils # (Auto) 0.00 K/uL (0.00-0.50) 12/07/23 Basophils # (Auto) 0.03 K/uL (0.00-0.20) 12/07/23 Immature Granulocyte # (Auto) 0.05 K/uL (0.01-0.20) 4 Na 133 mmol/L (136-145) L 12/07/23 K 3.6 mmol/L (3.5-5.1) 12/07/23 Cl 101 mmol/L (98-107) 12/07/23 CO2 23 mmol/L (21-32) 12/07/23 Anion Gap 9 (3-11) 12/07/23 BUN 22 mg/dl (6-23) 12/07/23 Creatinine 0.92 mg/dl (0.6-1.2) 12/07/23 BUN/Creatinine Ratio 23.9 (10-20) H 12/07/23 Glucose Level 144 mg/dl (70-99(Fasting)) H 12/07/23 Ca 7.7 mg/dl (8.6-10.3) L 12/07/23 Total Bilirubin 0.8 mg/dl (0.2-1.0) 12/07/23 Direct Bilirubin 0.1 mg/dl (0-0.2) 12/07/23 AST/SGOT 50 U/L (13-39) H 12/07/23 ALT/SGPT 30 U/L (7-52) 12/07/23 Alkaline Phosphatase 44 U/L (34-104) 12/07/23 Total Protein 5.9 gm/dl (6.0-8.3) L 12/07/23 Albumin 3.4 gm/dl (3.4-5.0) 12/07/23 Procalcitonin 1.37 ng/ml (0-0.5) H 12/07/23 INR 1.2 (0.9-1.1) H 12/07/23 Adenovirus (PCR) Not Detected (NotDetected) 12/07/23 B. parapertussis DNA (PCR) Not Detected (NotDetected) 11/20 12/13 B. pertussis DNA (PCR) Not Detected (NotDetected) 12/07/23 C. pneumoniae DNA (PCR) Not Detected (NotDetected) 4 Coronavirus Type OC43 (PCR) Not Detected (NotDetected) Coronavirus Type HKU1 (PCR) Not Detected (NotDetected) Coronavirus Type 229E (PCR) Not Detected (NotDetected) COVID-19 PCR Not Detected (NotDetected) 12/07/23 Coronavirus Type NL63 (PCR) Not Detected (NotDetected) Human Metapneumovirus (PCR) Not Detected (NotDetected) Influenza Virus Type A (PCR) Not Detected (NotDetected) Influenza Virus Type B (PCR) Not Detected (NotDetected) M. pneumoniae (PCR) Not Detected (NotDetected) 12/07/23 Parainfluenza Type 1 (PCR) Not Detected (NotDetected) 11/20 12/13 Parainfluenza Type 2 (PCR) Not Detected (NotDetected) 11/20 12/13 Parainfluenza Type 3 (PCR) Not Detected (NotDetected) 11/20 12/13 Parainfluenza Type 4 (PCR) Not Detected (NotDetected) 11/20 12/13 RSV (PCR) Not Detected (NotDetected) 12/07/23 Enterovirus/Rhinovirus (PCR) Not Detected (NotDetected) Chest X-Ray 12/07/23 Code Status & VTE Plan Code Status FULL CODE VTE Prophylaxis Plan VTE Prophylaxis will be ordered: Yes Supervising Physician Co-Signing Physician Notes Patient is seen and examined at bedside. Agree with HPI and assessment and plan. I personally reviewed blood work, imaging studies. The above note was edited as necessary. Physical Exam: Vitals signs as noted above General Appearance:Moderately built and nourished, no apparent distress Head: normocephalic, Atraumatic Eyes: normal inspection, EOMI Neck: supple, Trachea midline Respiratory/Chest: Normal breath sounds, CTA, +Chemo Port, No accessory muscle use Cardiovascular: S1, S2, No murmur Abdomen/GI:Soft, Non tender, Bowel sounds present Extremities/Musculoskeletal:normal inspection, no edema Neurologic/Psych:AAOX3, grossly no focal neurological deficits Skin: normal color, warm I personally interviewed and examined at bedside. Patient's care is coordinated with Taya Garcia PA-C. I have reviewed the advanced practitioner's documentation, and I agree with plan of care. Please refer to the documentation above for details of patient's presentation and for discussion of other issues. I spent a total [id number] coordinating, documenting, and providing care for this patient excluding time spent in the performance of separately billed se rvices.
[2023-12-07] MEDS: MAGNESIUM SULFATE / D5W 1 GM/100 ML BAG IV SCH (14:47)
--- NOTE | 2023-12-07 15:31 | CT Scan Report ---
CT OF THE HEAD WITHOUT CONTRAST CLINICAL HISTORY: ? Syncope COMPARISON STUDY: No previous studies for comparison. CT DOSE: 547.75 mGy.cm TECHNIQUE: Helical axial images of the head were obtained without IV contrast. Automated exposure con trol was utilized for the study. A dose lowering technique was utilized adhering to the principles o f ALARA. FINDINGS: No acute intracranial hemorrhage, midline shift or mass effect is present. The ventricular system is unremarkable. The basal cisterns are patent. No extra-axial collections are present. There are no findings to suggest acute dural sinus thrombosis or acute territorial infarct. There is no [place] varial fracture. IMPRESSION: No acute intracranial findings. ACT 112: Negative or not required by law. Electronically signed by: Titi Quintana M.D. 12/07/2023 3:30 PM
[2023-12-07] MEDS: SODIUM CHLORIDE 0.9% 500 ML IV ONE (15:58)
[2023-12-07] MEDS ORDERED: DOCUSATE SODIUM 100 MG CAP PO PRN (16:31)
[2023-12-07] MEDS ORDERED: POLYETHYLENE (MIRALAX) 17 GM PACK PO PRN (16:31)
[2023-12-07] MEDS ORDERED: ONDANSETRON INJ 2 MG/ML 2 ML VIAL IV PRN (16:31)
[2023-12-07] MEDS: NSS + 20MEQ KCL 20 MEQ/1,000 ML BAG IV SCH (17:19)
[2023-12-07] MEDS: PIPERACILLIN/TAZOBACTAM 4.5 GM in DEXTROSE 5% MINI-B 100 ML IV ONE (17:59)
[2023-12-07] MEDS: NYSTATIN SUSP 500,000 U/5 ML UDC PO SCH (18:05)
[2023-12-07] MEDS: CALCIUM GLUCONATE 1,000 MG/60 ML BAG IV STA (19:23)
[2023-12-07] MEDS: ENOXAPARIN INJ 40 MG/0.4 ML SYR SQ SCH (19:24)
[2023-12-07] MEDS: PIPERACILLIN/TAZOBACTAM 4.5 GM in DEXTROSE 5% MINI-B 100 ML IV SCH (19:24)
[2023-12-07 19:28] LABS: Adenovirus F 40/41 PCR Not Detected (NotDetected); Astrovirus PCR Not Detected (NotDetected); Campylobacter PCR Not Detected (NotDetected); Cryptosporidium PCR Not Detected (NotDetected); Cyclospora cayetanensis PCR Not Detected (NotDetected); Entamoeba histolytica PCR Not Detected (NotDetected); Enteroaggregative E.coli(EAEC) Not Detected (NotDetected); Enteropathogenic E.coli (EPEC) Not Detected (NotDetected); Enterotoxigenic E.coli (ETEC) Not Detected (NotDetected); Giardia lamblia PCR Not Detected (NotDetected); Norovirus GI/GII PCR Not Detected (NotDetected); Plesiomonas shigelloides PCR Not Detected (NotDetected); Rotavirus A PCR Not Detected (NotDetected); Salmonella PCR Not Detected (NotDetected); Sapovirus PCR Not Detected (NotDetected); Shiga-like Toxin E.coli (STEC) Not Detected (NotDetected); Shigella/Enteroinvasive E.coli Not Detected (NotDetected); Vibrio cholerae PCR Not Detected (NotDetected); Vibrio species PCR Not Detected (NotDetected); Yersinia enterocolitica PCR Not Detected (NotDetected)
--- OUTSIDE RECORDS SUMMARY | 2023-12-07 20:31 | External Medical Summary | Summary of Care ---
Author Name Unknown Organization [facility] Address [address] [place] [address] Phone [phone] Care Team Providers Care River Driver Name Role Phone Toby Bell MD Primary Care Provider [phone]- [phone] Reason for Visit * Reason Comments Chemotherapy C1/D1 - Keytruda/Tax ol/Carbo * Episode Based Medications (Routine) - Authorized Specialty Diagnoses / Procedures Referred By Contac t Referred To Contact Diagnoses Encounter for antineoplastic chemotherapy Malignant neoplasm of upper-inner quadrant of left breast in female, estrogen receptor negative (HCC) Procedures MT PALONOSETRON HCL MT CARBOPLATIN INJECTION MT INJ PEMBROLIZUMAB MT PACLITAXEL INJECTION DOXO, EMEND, CYTOXAN-TO START 01/22/24, UDENYCA TO START 01/23/24 PER TREATMENT PLAN Nas Palacios MD [address] [place] [address] Anc Hem/Onc [address] [address] Referral ID Status Reason Start Date Expiration Date V isits Requested Visits Authorized [id number] Authorized 10/27/2023 01/16/2024 999 99 Encounter Details Date Type Department Care Team (Latest Contact Info) Description 11/07/2023 11:00 AM EDT Hem/Onc Treatment Hematology/Oncolog y Treatment, [address] [address] Encounter for antineoplastic chemotherapy*; Malignant neoplasm of upper-inner quadrant of left breast in female, estrogen receptor negative (HCC) Allergies Active Allergy Reactions Criticality Noted Date Comments Guaifenesin & Derivatives 10/11/2000 Daily--kei Lisinopril Edema face/lips/tongue High 08/05/2021 documented as of this encounter (statuses as of 11/30/2023) Medications Medication Sig Dispensed Refills Start Date End Date Status OCUVITE OR TABS 1 TABLET DAILY 30 0 04/16/2002 Active Atorvastatin Calcium 40 MG Oral Tablet (Lipitor) Take 1 Tablet by mouth in the morning. 90 Tablet 3 10/24/2023 Active Losartan Potassium 50 MG Oral Tablet (Cozaar) Take 1.5 Tablets by mouth in the morning. 135 Tablet 3 10/24/2023 Active Prochlorperazine Maleate 10 MG Oral Tablet (Compazine)Indicat ions:Malignant neoplasm of upper-inner quadrant of left breast in female, estrogen receptor negative (HCC) Take 1 Tablet by mouth every 6 hours as needed for Nausea. 30 Tablet 10/26/2023 Active Additional Information Patient not taking.Reported on 10/27/2023 Ondansetron HCl 8 MG Oral TabletIndications: Malignant neoplasm of upper-inner quadrant of left breast in female, estrogen receptor negative (HCC) Take 1 Tablet by mouth every 8 hours as needed for Nausea. 30 Tablet 10/26/2023 Active Additional Information Patient not taking.Reported on 10/27/2023 dexAMETHasone 4 MG Oral TabletIndications: Malignant neoplasm of upper-inner quadrant of left breast in female, estrogen receptor negative (HCC) 12 mg (3 tab) 12 and 6 hours before chemotherapy 40 Tablet 10/26/2023 Active Additional Information Patient not taking.Reported on 10/27/2023 Lidocaine-Prilocai ne 2.5-2.5 % External Cream (Emla)Indications: Malignant neoplasm of upper-inner quadrant of left breast in female, estrogen receptor negative (HCC) APPLY TO SKIN OVER MEDIPORT & COVER 1HR PRIOR TO ACCESSING. 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 02/08/2022 Gastro-esophageal reflux disease without esophag itis 02/08/2022 Dyslipidemia 02/08/2022 HTN, goal below 140/90 02/08/2022 Varicose vein of leg 01/08/2003 Macular degeneration 08/31/2002 CARDIAC MURMURS NEC documented as of this encounter (statuses as of 11/30/2023) Immunizations Name Administration Dates Next Due COVID-19 mRNA, LNP-s, No Pre serve, 2-Dose Series (Moderna) 09/16/2020 Pneumococcal Conjugate Vacc, 13 Valent (Prevnar) 03/15/2016 Pneumococcal Polysaccharide PPV23 (Pneumovax) Seasonal Influenza, Quadrivalent Hd (Fluzone Hd) 03/04/2023,02/08/2022 TDAP, Age 7 and older, IM (Adacel) 07/10/2016, documented as of this encounter Social History Tobacco Use Types Packs/Day Years Used Date Smoking Tobacco: Never Passive Smoke Exposure: Never Smokeless Tobacco: Never Tobacco Cessation:Counseling Given: Not Answered Alcohol Use Standard Drinks/Week Comments No 0 (1 standard drink = 0.6 oz pur e alcohol) PHQ-2 Answer Date Recorded PHQ Adult Total Score 0 10/11/2023 Hunger Vital Sign Answer Date Recorded Within the past 12 months, y ou worried that your food would run out before you got the money to buy more. Patient declined Within the past 12 months, t he food you bought just didn't last and you didn't have money to get more. Patient declined Childcare Answer Date Recorded Do you feel overwhelmed with taking care of a child, family member or friend? No 10/11/2023 Does your family need help f inding childcare? (Household - for ages 0-17 years) Not on file 10/11/2023 Clothing Answer Date Recorded Have you been unable to get clothing when it was really needed? No 10/11/2023 Is your family able to get c lothes or diapers when needed? (Household - for ages 0-17 years) Not on file 10/11/2023 Personal Safety Answer Date Recorded Do you feel unsafe or have concerns for your saf ety? No 10/11/2023 Do you have concerns for you r family's safety? (Household - for ages 0-17 years) Not on file 10/11/2023 Utilities Answer Date Recorded Do you have trouble paying y our heating, water, or electric bill? No 10/11/2023 Is your family able to pay t he heat, water, or electric bill? (Household - for ages 0-17 years) Not on file 10/11/2023 Does your family have access to good internet? (Household - for ages 0-17 years) Not on file 10/11/2023 Employment Status Answer Date Recorded Are you unemployed or without regular income? No 10/11/2023 Does the household have a [facility] source of income? (Household - for ages 0-17 years) Not on file 10/11/2023 Social Connections Answer Date Recorded How often do you feel lonely or isolated from th ose around you? Never 10/11/2023 Financial Resource Strain Answer Date R ecorded Do you have any trouble payi ng for your medications, or do you think you might in the future? No 10/11/2023 Does your family have troubl e paying for medicine? (Household - for ages 0-17 years) Not on file 10/11/2023 Transportation Needs Answer Date Record ed READ ONLY Do you have troubl e getting a ride to medical visits or work? Never True 10/11/2023 Does your family have a hard time getting a ride to doctors visits? (Household - for ages 0-17 years) Not on file 10/11/2023 Has lack of transportation k ept you from medical appointments, meetings, work, or from getting things needed for daily living? Check all that apply. (Adult - for ages 18 years and over) Not on file 10/11/2023 Do you (or your family) have trouble finding or paying for a ride (transportation)? (Household - for ages 0-17 years) Not on file 10/11/2023 Housing Stability Answer Date Recorded Do you currently live in a s helter or have no steady place to sleep at night? No 10/11/2023 READ ONLY Do you think you a re at risk of becoming homeless? No 10/11/2023 Does your family worry about paying for your home or becoming homeless? (Household - for ages 0-17 years) Not on file 0 10/11/2023 Are you homeless or worried that you might be in the future? (Adult - for ages 18 years and over) Not on file Are you (or your family) eli eless or worried that you might be in the future? (Household - for ages 0-17 years) Not on file Food Insecurity Answer Date Recorded Do you need food for this week? No 10/11/2023 Are you able to get enough f ood for your family? (Household - for ages 0-17 years) Not on file 10/11/2023 Does your family need food t his week? (Household - for ages 0-17 years) Not on file 10/11/2023 Do you always have enough fo od for your family? (Household - for ages 0-17 years) Not on file 10/11/2023 Sex and Gender Information Value Date Recorded Sex Assigned at Female 10/11/2023 1:22 PM EDT Gender Identity Female 10/11/2023 1:22 PM EDT Sexual Orientation Straight 10/11/2023 1: 22 PM EDT Job Start Date Occupation Industry Not on file Not on file Not on file documented as of this encounter Last Filed Vital Signs Vital Sign Reading Time Taken Comments Blood Pressure 183/75 11/07/2023 10:56 AM EDT Pulse 62 11/07/2023 10:56 AM EDT Temperature 36.7 C (98.1 F) 11/07/2023 10:56 AM E DT Respiratory Rate - - Oxygen Saturation 94% 11/07/2023 10:56 AM EDT Inhaled Oxygen Concentration - - Weight 62.2 kg (137 lb 3.2 oz) 11/07/2023 10:56 AM EDT Height - - Body Mass Index 21.49 11/02/2023 11:54 AM EDT documented in this encounter Nursing Notes * Kenyatta Horne RN - 11/07/2023 2:15 PM EDT Goals: Patient will remain free from injury. Possible barriers to meeting goals: ambulating with IV pole, age, IVP Benadryl before tx Stability of the patient: Moderately stable - low risk of patient condition declining or worsening Summary regarding today's goals: Met: pt remained free of harm today Patient tolerated treatment well without any acute issues or problems. Patient left facility in stable condition and denied any further needs. * Kenyatta Horne RN - 11/07/2023 10:56 AM EDT Chair 6. Port accessed. Patient presents today for first cycle of chemotherapy, accompanied by Toby jean. Patient was educated about establishing IV access, giving premeds, taking PRN home medications, process of getting medication from pharmacy, layout of treatment room, use of call ramirez, etc. Patient communicated understanding and denied any further questions, concerns, needs. Chemotherapy/Immunotherapy agents: CARBOPLATIN, KEYTRUDA, and TAXOL Consent for chemotherapy drug treatment complete, dated, and signed? yes, date - 10/26/2023 Treatment lab parameters met? Yes Has treatment weight changed > than 10%? No Treatment preauthorized? Yes VITALS Filed Vitals: 11/07/23 1056 BP: 183/75 Pulse: 62 Temp: 36.7 C (98.1 F) TempSrc: Tympanic SpO2: 94% Weight: 62.2 kg (137 lb 3.2 oz) Urine protein: N/A Patient education completed for treatment? Yes Blood transfusion consent signed and complete? N/A Return appointment scheduled? Yes Patient had provider visit today? No - If no provider visit must complete Pretreatment Assessment Functional Status: Functional status at today's visit: Fully active, able to carry on all pre-disease performance without restriction The drug name, dose, infusion volume, rate and route of administration, expiration date and time, appearance and physical integrity of the drug and rate set on the pump and sequencing of drug administration (as applicable) were verified by me and second sign-in RN. Patient was assessed for symptoms or adverse side effects during treatment. PRE-TREATMENT ASSESSMENT: NEURO: denies symptoms CV/RESP: denies symptoms GI/: denies symptoms OTHER: denies any additional symptoms PAIN: 0 Safety and Risk for Injury Patient will remain free from injury. Ensure appropriate safety devices are available. Provide and maintain safe environment. documented in this encounter Plan of Treatment Upcoming Encounters Date Type Department Care Team (Late st Contact Info) Description 12/06/2023 8:00 AM EDT Laboratory Laboratory [facility] [place] [address] [facility] [place] [phone] Christina [facility] [address] [facility] [place] [address] 12/06/2023 8:30 AM EDT Office Visit Hematology/Oncology [facility] [place] [address] [facility] [place] [phone] Alissa Roldan CRNP [address] [place] [address] 12/06/2023 9:00 AM EDT Hem/Onc Treatment [address]ematology[address], [address] [phone] Christina, Chair [address] Hem Onc [place] [address] [place] [address] 12/12/2023 10:00 AM EDT Laboratory Laboratory [facility] [place] [address] [place] [phone] Christina, Lab [facility] [address] [facility] [place] [address] 12/12/2023 11:00 AM EDT Hem/Onc Treatment Hematology/[address], [address] [phone] Park, Chair [address] [place] [address] 02/03/2024 10:30 AM EDT Telemedicine Genetics HemOnc, [facility] [address] [place] [address] Mabel Ford, MS [address] [place] [address] 03/16/2024 2:40 PM EDT Office Visit Family [facility] [address] [place] [address] Toby Bell MD [address] [place], [place] [phone] 04/10/2024 10:30 AM EST Imaging Radiology, [address] [address] Health Maintenance Due Date Last Done Comments DXA Scan 1940 Albumin/Creatinine Ratio 09[birth year]16/1958 COVID-19 Vaccine (3 - 2022- season) 2023 09/16/2020, 08/15/2020 HbA1c 05/06/2023 11/04/2022 Influenza Vaccine (FLU shot) (#1) 2024 03/04/2023, 02/08/2022, 02/14/2020, Additional history exists Depression Screening 10/10/2024 10/11/2023 Diabetic Foot Exam 10/10/2024 10/11/2023 Diabetic Eye Exam 10/19/2024 10/20/2023, , 10/20/2023, Additional history exists GFR 11/27/2024 11/28/2023, 07/0 05/2023, 11/14/2023, Additional history exists DTaP,Tdap,and Td Vaccines (3 - Td or Tdap) 07/10/2026 07/10/2016, 07/10/2016, 08/12/2008 Pneumococcal Vaccine: 65+ Years Completed 03/15/2016, 09/27/2006 HPV (Gardasil) Vaccine Aged Out No lo nger eligible based on patient's age to complete this topic Hepatitis B Vaccine Aged Out No longe r eligible based on patient's age to complete this topic MENINGOCOCCAL (MENACTRA/MENVEO) Aged Out No longer eligible based on patient's age to complete this topic Zoster Vaccines Discontinued documented as of this encounter Medical Devices Implanted Type Area Quality Systems Engineer Device Identifier Shelf Expiration Date Model / Serial / Lot Port Power Mri W8fr Cath - [id number] Implanted:Qty: 1 on 11/02/2023 by Mariah Abdul MD at OR [facility] Right: Chest CR BARD : PERIPHERAL VASCULAR 08/20/2024 [id number] / / [id number] documented as of this encounter Visit Diagnoses Diagnosis Encounter for antineoplastic chemotherapy- Primary Malignant neoplasm of upper-inner quadrant of left breast in female, estrogen receptor negative (HCC) documented in this encounter Administered Medications Inactive Administered Medications - up to 3 most recent administrations Medication Order MAR Action Action Date Dose Rate Site CARBOplatin (Paraplatin) 127 mg in D5W 250 mL infusion 127 mg (rounded from 126.45 mg, Target AUC = 1.5), IV Piggyback, at 510 mL/hr Administer over 30 Minutes, PROTECT FROM LIGHT, ONCE, 1 dose, On Tue11/07/23 at 1430 Start Infusion 11/07/2023 1:26 PM EDT 127 mg 510 mL/hr dexAMETHasone (Decadron) tab 12 mg 12 mg, Oral, ONCE, On Tue11/07/23 at 1200, For 1 dose Given 11/07/2023 11:36 AM EDT 12 mg diphenhydrAMINE (Benadryl) inj 25 mg 25 mg, IV Push, ONCE, On Tue11/07/23 at 1200, For 1 dose Given 11/07/2023 11:37 AM EDT 25 mg Famotidine (Pepcid) tab 20 mg 20 mg, Oral, ONCE, On Tue11/07/23 at 1230, For 1 dose Given 11/07/2023 11:36 AM EDT 20 mg hEParin 100 UNIT/ML Lock Flush inj 500 Units 500 Units (5 mL), IV Lock, PRN Other, IV Flush, Starting on Tue11/07/23 at 1119, Until Tue11/07/23 at 1832, For 24 hours, Do not flush if lock, PICC, or central line not in place; IV infusing or unable to flush. Given 11/07/2023 2:08 PM EDT 500 Units NSS infusion Intravenous, at 50 mL/hr, PRN, Starting on Tue11/07/23 at 1230, Until Tue11/07/23 at 1832, Maintenance line Start Infusion 11/07/2023 11:36 AM EDT 50 mL/hr PACLitaxel (Taxol) 138 mg in NSS 250 mL infusion 138 mg (rounded from 137.6 mg = 80 mg/m2 1.72 m2 Treatment Plan BSA from Recorded weight), IV Piggyback, ONCE, 1 dose, On Tue11/07/23 at 1330, Administer over 60 Minutes, Administer through 0.22 micron low protein binding filter! Start Infusion 11/07/2023 12:22 PM EDT 138 mg 278 mL/hr Palonosetron (Aloxi) inj SOLN 0.25 mg 0.25 mg, IV Push, ONCE, On Tue11/07/23 at 1200, For 1 dose, Restricted per [facility] antiemetic guidelines Given 11/07/2023 11:37 AM EDT 0.25 mg Pembrolizumab (Keytruda) 200 mg in NSS 100 mL infusion 200 mg, IV Piggyback, ONCE, 1 dose, On Tue11/07/23 at 1300, Administer over 30 Minutes, Infuse through 0.2 micron filter. Start Infusion 11/07/2023 11:46 AM EDT 200 mg 226 mL/hr sodium chloride 0.9 % flush central line 10 mL 10 mL, IV Push, PRN Other, IV Flush, Starting on Tue11/07/23 at 1119, Until Tue11/07/23 at 1832, For 24 hours, Do not flush if lock, PICC, or central line not in place; IV infusing or unable to flush. Given 11/07/2023 2:08 PM EDT 10 mL documented in this encounter Advance Directives * Full Code (Latest Code Status on File) Date Activated Date Inactivated Comments 11/02/2023 11:37 AM 11/02/2023 6:38 PM This order reflects the patients wishes and were consensually agreed upon. Question Answer Comments Discussion of Advance Directives occurred with: Patient Care Teams River Driver Relationship Specialty Start Date End Date [facility]y Bell MD [address] [facility] [address] PCP - General Family Medicine 02/08/22 documented as of this encounter
--- OUTSIDE RECORDS SUMMARY | 2023-12-07 20:31 | External Medical Summary | Summary of Care ---
Author Name Unknown Organization [facility] Address [address] [place] [address] Phone [phone] Care Team Providers Care Tacking Machine Operator Name Role Phone Toby Bell MD Primary Care Provider [phone]- [phone] Reason for Visit * Reason Comments Chemotherapy C1/D1 - Keytruda/Tax ol/Carbo * Episode Based Medications (Routine) - Authorized Specialty Diagnoses / Procedures Referred By Contac t Referred To Contact Diagnoses Encounter for antineoplastic chemotherapy Malignant neoplasm of upper-inner quadrant of left breast in female, estrogen receptor negative (HCC) Procedures [place] PALONOSETRON HCL [place] CARBOPLATIN INJECTION W[place] INJ PEMBROLIZUMAB [place] PACLITAXEL INJECTION DOXO, EMEND, CYTOXAN-TO START 01/22/24, UDENYCA TO START 01/23/24 PER TREATMENT PLAN Nas Palacios MD [address] [place] [address] Anc Hem/Onc [address] [address] Referral ID Status Reason Start Date Expiration Date V isits Requested Visits Authorized [id number] Authorized 10/27/2023 01/16/2024 999 99 Encounter Details Date Type Department Care Team (Latest Contact Info) Description 11/07/2023 11:00 AM EDT Hem/Onc Treatment Hematology/Oncolog y Treatment, [address] [address] Encounter for antineoplastic chemotherapy*; Malignant [...] No 10/11/2023 Does the household have a [facility] source of income? (Household - for ages [...] Description 12/06/2023 8:00 AM EDT Laboratory Laboratory [facility] [place] [address] [facility] [place] [phone] Christina [facility] [address] [facility] [place] [address] 12/06/2023 8:30 AM EDT Office Visit Hematology/Oncology [facility] [place] [address] [facility] [place] [phone] Alissa Roldan CRNP [address] [place] [address] 12/06/2023 9:00 AM EDT Hem/Onc Treatment Hematology/Oncology [address], [address] [phone] Christina, Chair [address] Hem On[address] [place] [address] [place] [address] 12/12/2023 10:00 AM EDT Laboratory Laboratory [facility] [place] [address] [place] [phone] Christina, Lab [facility] [address] [facility] [place] [address] 12/12/2023 11:00 AM EDT Hem/Onc Treatment Hematology/[address]cology [address], [address] [phone] [place], Chair [address] [place] [address] 02/03/2024 10:30 AM EDT Telemedicine Genetics HemOnc, [facility] [address] [place] [address] Mabel Ford, MS [address] [place] [address] 03/16/2024 2:40 PM EDT Office Visit Family [facility] [address] [place] [address] Toby Bell MD [address], [place] [phone] 04/10/2024 10:30 AM EST Imaging Radiology, [address] [address] Health Maintenance Due Date Last Done Comments [...] this encounter Medical Devices Implanted Type Area Manager Statistical Programming Device Identifier Shelf Expiration Date Model / Serial / Lot Port Power Mri W8fr Cath - [id number] Implanted:Qty: 1 on 11/02/2023 by Mariah Abdul MD at OR [facility] Right: Chest CR BARD : PERIPHERAL VASCULAR 08/20/2024 [id number] / / [id number] documented as of this encounter Visit Diagnoses [...] at 1200, For 1 dose, Restricted per [facility] antiemetic guidelines Given 11/07/2023 11:37 AM EDT [...] Advance Directives occurred with: Patient Care Teams Tacking Machine Operator Relationship Specialty Start Date End Date [facility]y Bell MD [address] [facility] [address] PCP - General Family Medicine 02/08/22 documented as of this encounter
--- OUTSIDE RECORDS SUMMARY | 2023-12-07 20:31 | External Medical Summary ---
Author Name Unknown Address Unknown Organization [id number][facility] [place] [place] [address] Laboratory Report Ordering Provider Test Date Status LEANN ROWELL 12/06/2023 08:31:19 Final Observation Date Value Abnormality Reference (Units ) Status WBC, Total 12/06/2023 08:31:19 2.07 Below low normal 4. 00-10.80 (K/uL) Final RBC 12/06/2023 08:31:19 3.82 3.85-5.15 (M/uL) Final Hemoglobin 12/06/2023 08:31:19 12.2 12.0-15.3 (g/dL) Final HCT 12/06/2023 08:31:19 36.5 36.0-45.2 (%) Final MCV 12/06/2023 08:31:19 95.5 81.5-97.5 (fL) Final MCH 12/06/2023 08:31:19 31.9 27.0-34.0 (pg) Final MCHC 12/06/2023 08:31:19 33.4 32.0-36.0 (g/dL) Final RDW 12/06/2023 08:31:19 14.9 11.5-15.5 (%) Final Platelets 12/06/2023 08:31:19 182 140-400 (K /uL) Final MPV 12/06/2023 08:31:19 10.1 6.6-11.1 ( fL) Final Performing Location [facility] [place] [address]
--- OUTSIDE RECORDS SUMMARY | 2023-12-07 20:31 | External Medical Summary ---
Author Name Unknown Address Unknown Organization [id number]:[facility] [place] [address] Laboratory Report Ordering Provider Test Date Status LEANN ROWELL 12/06/2023 08:31:19 Final Observation Date Value Abnormality Reference (Units ) Status SYNC LEUKOCYTES IN BLOOD BY AUTOMATED COUNT 12/06/2023 08:31:19 2.07 Below low normal 4.00-10.80 (K/uL) Final Segs 12/06/2023 08:31:19 79.2 Above high normal 40.0-75.0 (%) Final Lymphs % 12/06/2023 08:31:19 17.4 Below low normal 18.0-42.0 (%) Final Monos 12/06/2023 08:31:19 2.9 1.0-11.0 (%) Final Eosinophils 12/06/2023 08:31:19 0.0 0.0-6.0 (%) Final Basos 12/06/2023 08:31:19 0.5 0.0-2.0 (%) Final Absolute Segs 12/06/2023 08:31:19 1.64 Below low normal 1.80-7.70 (K/uL) Final Lymphs, absolute 12/06/2023 08:31:19 0.36 Below low normal 1.00-4.80 (K/ul) Final Monos, Abs 12/06/2023 08:31:19 0.06 0.00-1.10 (K/uL) Final Eos, Abs 12/06/2023 08:31:19 0.00 0.00-0.70 (K/uL) Final Basos, Abs 12/06/2023 08:31:19 0.01 0.00-0.20 (K/uL) Final Performing Location [facility] [place] [address]
--- OUTSIDE RECORDS SUMMARY | 2023-12-07 20:31 | External Medical Summary | Summary of Care ---
Author Name Unknown Organization [facility] Address [address] [place] [address] Phone [phone] Care Team Providers Care Anger Control Counselor Name Role Phone Toby Bell MD Primary Care Provider [phone]- [phone] Reason for Visit * Reason Comments Chemotherapy C1/D1 - Keytruda/Tax ol/Carbo * Episode Based Medications (Routine) - Authorized Specialty Diagnoses / Procedures Referred By Contac t Referred To Contact Diagnoses Encounter for antineoplastic chemotherapy Malignant neoplasm of upper-inner quadrant of left breast in female, estrogen receptor negative (HCC) Procedures MS PALONOSETRON HCL MS CARBOPLATIN INJECTION MS INJ PEMBROLIZUMAB MS PACLITAXEL INJECTION DOXO, EMEND, CYTOXAN-TO START 01/22/24, UDENYCA TO START 01/23/24 PER TREATMENT PLAN Nas Palacios MD [address] [place] [address] Anc Hem/Onc [address] [address] Referral ID Status Reason Start Date Expiration Date V isits Requested Visits Authorized [id number] Authorized 10/27/2023 01/16/2024 999 99 Encounter Details Date Type Department Care Team (Latest Contact Info) Description 11/07/2023 11:00 AM EDT Hem/Onc Treatment Hematology/Oncolog y Treatment, [address] [address] Encounter for antineoplastic chemotherapy*; Malignant [...] Description 12/06/2023 8:00 AM EDT Laboratory Laboratory [facility] [place] 200 [facility] [place] [phone] Christina [facility] 200 [facility] [place] [address] 12/06/2023 8:30 AM EDT Office Visit Hematology/Oncology [facility] [place] 200 [facility] [place] [phone] Alissa Roldan CRNP [address] [place] [address] 12/06/2023 9:00 AM EDT Hem/Onc Treatment Hematology/[address]cology [address], [address] [phone] Christina, Chair 10 Hem On[address] [place] [address] [place] [address] 12/12/2023 10:00 AM EDT Laboratory Laboratory [facility] [place] [address] [place] [phone] Christina, Lab [facility] [address] [facility] [place] [address] 12/12/2023 11:00 AM EDT Hem/Onc Treatment Hematology/Oncology [address], [address] [phone] Park, Chair [address] Hem On[address] [place] [address] 02/03/2024 10:30 AM EDT Telemedicine Genetics HemOnc, [facility] [address] [place] [address] Mabel Ford, MS [address] [place] [address] 03/16/2024 2:40 PM EDT Office Visit Family [facility] [address] [place] [address] Toby Bell MD [address] [place], [place] [phone] 04/10/2024 10:30 AM EST Imaging Radiology, [address] [address] Health Maintenance Due Date Last Done Comments [...] this encounter Medical Devices Implanted Type Area Radar Scientist Device Identifier Shelf Expiration Date Model / Serial / Lot Port Power Mri W8fr Cath - [id number] Implanted:Qty: 1 on 11/02/2023 by Mariah Abdul MD at OR [facility] Right: Chest CR BARD : PERIPHERAL VASCULAR 08/20/2024 [id number] / / [id number] documented as of this encounter Visit Diagnoses [...] at 1200, For 1 dose, Restricted per [facility] antiemetic guidelines Given 11/07/2023 11:37 AM EDT [...] Advance Directives occurred with: Patient Care Teams Anger Control Counselor Relationship Specialty Start Date End Date Toby Bell MD [address] [facility] [address] P[facility] - General Family Medicine 02/08/22 documented as of this encounter
--- OUTSIDE RECORDS SUMMARY | 2023-12-07 20:31 | External Medical Summary | Summary of Care ---
Author Name Unknown Organization [facility] Address [address] [place] [address] Phone [phone] Care Team Providers Care Assistant Maintenance Manager Name Role Phone Toby Bell MD Primary Care Provider [phone]- [phone] Reason for Visit * Reason Comments Chemotherapy C1/D1 - Keytruda/Tax ol/Carbo * Episode Based Medications (Routine) - Authorized Specialty Diagnoses / Procedures Referred By Contac t Referred To Contact Diagnoses Encounter for antineoplastic chemotherapy Malignant neoplasm of upper-inner quadrant of left breast in female, estrogen receptor negative (HCC) Procedures [place] PALONOSETRON HCL KS CARBOPLATIN INJECTION KS INJ PEMBROLIZUMAB KS PACLITAXEL INJECTION DOXO, EMEND, CYTOXAN-TO START 01/22/24, UDENYCA TO START 01/23/24 PER TREATMENT PLAN Nas Palacios MD [address] [place] [address] Anc Hem/Onc [address] [address] Referral ID Status Reason Start Date Expiration Date V isits Requested Visits Authorized [id number] Authorized 10/27/2023 01/16/2024 999 99 Encounter Details Date Type Department Care Team (Latest Contact Info) Description 11/07/2023 11:00 AM EDT Hem/Onc Treatment Hematology/Oncolog y Treatment, [address] [address] Encounter for antineoplastic chemotherapy*; Malignant [...] No 10/11/2023 Does the household have a [facility] source [facility] income? (Household - for [...] Description 12/06/2023 8:00 AM EDT Laboratory Laboratory [facility] [place] 200 [facility] [place] [phone] Christina [facility] 200 [facility] [place] [address] 12/06/2023 8:30 AM EDT Office Visit Hematology/Oncology [facility] [place] 200 [facility] [place] [phone] Alissa Roldan CRNP [address] [place] [address] 12/06/2023 9:00 AM EDT Hem/Onc Treatment Hematology/Oncology [address], [address] [phone] Christina, Chair 10 Hem Onc [place] [address] [place] [address] 12/12/2023 10:00 AM EDT Laboratory Laboratory [facility] [address] [place] [phone] Christina, Lab [facility] [address] [facility] [place] [address] 12/12/2023 11:00 AM EDT Hem/Onc Treatment Hematology/Oncology [address], [address] [phone] [place], Chair 6 Hem On[address] [place] [address] 02/03/2024 10:30 AM EDT Telemedicine Genetics [facility], [facility] [address] [place] [address] Mabel Ford, MS [address] [place] [address] 03/16/2024 2:40 PM EDT Office Visit Family [facility] [address] [place] [address] Toby Bell MD [address] [place], [place] [phone] 04/10/2024 10:30 AM EST Imaging Radiology, [address] [address] Health Maintenance Due Date Last Done Comments [...] this encounter Medical Devices Implanted Type Area Adult Education Professional Device Identifier Shelf Expiration Date Model / Serial / Lot Port Power Mri W8fr Cath - [id number] Implanted:Qty: 1 on 11/02/2023 by Mariah Abdul MD at OR [facility] Right: Chest CR BARD : PERIPHERAL VASCULAR 08/20/2024 [id number] / / [id number] documented as of this encounter Visit Diagnoses [...] at 1200, For 1 dose, Restricted per [facility] antiemetic guidelines Given 11/07/2023 11:37 [...] Advance Directives occurred with: Patient Care Teams Assistant Maintenance Manager Relationship Specialty Start Date End Date Toby Bell MD [address] [facility] [address] PCP - General Family Medicine 02/08/22 documented as of this encounter
--- OUTSIDE RECORDS SUMMARY | 2023-12-07 20:31 | External Medical Summary | Summary of Care ---
Author Name Unknown Organization [facility] Address [address] [place] [address] Phone [phone] Care Team Providers Care Service Desk Agent Name Role Phone Toby Bell MD Primary Care Provider +1- [phone] Reason for Visit * Reason Comments Chemotherapy paclitaxel, carbopla tin. * Episode Based Medications (Routine) - Authorized Specialty Diagnoses / Procedures Referred By Ese medina Referred To Contact Diagnoses Encounter for antineoplastic chemotherapy Malignant neoplasm of upper-inner quadrant of left breast in female, estrogen receptor negative (HCC) Procedures [place] PALONOSETRON HCL PA CARBOPLATIN INJECTION PA INJ PEMBROLIZUMAB PA PACLITAXEL INJECTION DOXO, EMEND, CYTOXAN-TO START 01/22/24, UDENYCA TO START 01/23/24 PER TREATMENT PLAN Nas Palacios MD [address] [place] [address] Anc Hem/Onc [address] [address] Referral ID Status Reason Start Date Expiration Date V isits Requested Visits Authorized [id number] Authorized 10/27/2023 01/16/2024 999 99 Encounter Details Date Type Department Care Team (Latest Contact Info) Description 12/06/2023 9:00 AM EDT Hem/Onc Treatment Hematology/Oncolog y Treatment, [address] [address] Christina, Chair 10 Hem Onc [address] [place] [address] Encounter for antineoplastic chemotherapy*; Malignant neoplasm of upper-inner quadrant of left breast in female, estrogen receptor negative (HCC) Allergies Active Allergy Reactions Criticality Noted Date Comments Guaifenesin & Derivatives 10/11/2000 Daily--hives Lisinopril Edema face/lips/tongue High 08/05/2021 documented as of this encounter (statuses as of 12/06/2023) Medications Medication Sig Dispensed Refills Start Date [...] needed for Nausea. 30 Tablet 10/26/2023 Active dexAMETHasone 4 MG Oral TabletIndications: Malignant neoplasm [...] TO ACCESSING. 30 g 1 10/28/2023 Active documented as of this encounter (statuses as of 12/06/2023) Active Problems Problem Noted Date Diagnosed Date [...] as of this encounter (statuses as of 12/06/2023) Immunizations Name Administration Dates Next Due COVID-19 [...] Passive Smoke Exposure: Never Smokeless Tobacco: Never Alcohol Use Standard Drinks/Week Comments No 0 [...] No 10/11/2023 Does the household have a [facility] source [facility] income? (Household - for [...] on file documented as of this encounter Nursing Notes * Giselle Hurtado RN - 12/06/2023 1:51 PM EDT Goals: Patient will remain free from injury. Possible barriers to meeting goals: Fall risk d/t ambulation with IV pole. Stability of the patient: Moderately unstable - medium risk of patient condition declining or worsening Summary regarding today's goals: Met: Patient remained free of injury. Patient tolerated infusion well. Discharged in stable condition. * Giselle Hurtado RN - 12/06/2023 10:50 AM EDT Chair 8. Patient arrived for paclitaxel, carboplatin. Patient was seen by BO Dukes today (see office notes), per Alissa murillo for treatment today. VAD accessed. Chemotherapy/Immunotherapy agents: PACLITAXEL and CARBOPLATIN Consent for chemotherapy drug treatment complete, dated, and signed? yes, date - 10/26/23 Treatment lab parameters met? Yes Has treatment weight changed > than 10%? No Treatment preauthorized? Yes VITALS Filed Vitals: Urine protein: N/A Patient education completed for treatment? Yes Blood transfusion consent signed and complete? NA Return appointment scheduled? Yes Patient had provider visit today? Yes - Ok to release order and treat per provider Functional Status: Functional status at today's visit: Restricted in physically strenuous activity but ambulatory and able to carry out work on a light orsedentary nature, e.g. light house work, office work The drug name, dose, infusion volume, rate and route of administration, expiration date and time, appearance and physical integrity of the drug and rate set on the pump and sequencing of drug administration (as applicable) were verified by me and second sign-in RN. Patient was assessed for symptoms or adverse side effects during treatment. Safety and Risk for Injury Patient will remain free from injury. Ensure appropriate safety devices are available. Provide and maintain safe environment. documented in this encounter Plan of Treatment Upcoming Encounters Date Type Department Care Team (Late st Contact Info) Description 12/12/2023 10:00 AM EDT Laboratory Laboratory [facility] [place] [address] [place] [phone] Christina, Lab [facility] [address] [place] [address] 12/12/2023 11:00 AM EDT Hem/Onc Treatment Hematology/Oncology Treatment, [place] [address] [place] [phone] Christina Chair 6 Hem Onc [address] [place] [address] 12/20/2023 8:00 AM EDT Laboratory Laboratory Scenery [facility] [address] [place] [address] Park, Lab [address] [place] [address] 12/20/2023 9:00 AM EDT [facility] [address] [place] [address] Christina, Chair 6 Hem Onc [address] [place] [address] 12/27/2023 9:10 AM EDT Laboratory Laboratory [facility] [place] [address] [place], [place] [address] Christina, Lab [address] [place] [address] 12/27/2023 10:15 AM EDT [facility] [address] [place] [address] Christina, Chair 8 Hem Onc [address] [place] [address] 01/03/2024 8:00 AM EDT Laboratory Laboratory [facility] [place] [address] [place] [address] Christina, Lab [address] [place] [address] 01/03/2024 9:00 AM EDT Hem/Onc Treatment Hematology/Oncology Treatment, [place] [address] [place] [address] Christina, Chair 6 Hem Onc [address] [place] [address] 01/10/2024 8:30 AM EDT Laboratory Laboratory [facility] [place] [address] [place] [address] Christina, Lab [address] [facility] [place] [address] 01/10/2024 9:00 AM EDT Office Visit Hematology/Oncology [facility] [place] [address] [place] [phone] Alissa Roldan CRNP [address] [facility] [place] [address] 01/10/2024 9:30 AM EDT Hem/Onc Treatment Hematology/Oncology Treatment, [place] [address] [place], [place] [phone] Christina, Chair 9 Hem Onc [facility] [address] [facility] [place] [address] 01/31/2024 9:00 AM EDT Office Visit Hematology/Oncology [facility] [place] [address] [place] [phone] Nas Palacios MD [address] [place] [address] 02/03/2024 10:30 AM EDT Telemedicine Genetics HemOnc, [facility] [address] [place] [address] Mabel Ford, MS [address] [place] [address] 03/16/2024 2:40 PM EDT Office Visit [facility] [address] [place] [address] Toby Bell MD [address] [place], [place] [phone] 04/10/2024 10:30 AM EST Imaging Radiology, [address] [place] [address] Health Maintenance Due Date Last Done Comments DXA Scan 1940 Albumin/Creatinine Ratio 09[birth year]16/1958 COVID-19 Vaccine (3 - Moderna risk series) 10/14/2020 09/16/2020, 08/15/2020 HbA1c 05/06/2023 11/04/2022 Influenza Vaccine (FLU shot) (#1) 2024 03/04/2023, 02/08/2022, 02/14/2020, Additional history exists Depression Screening 10/10/2024 10/11/2023 Diabetic Foot Exam 10/10/2024 10/11/2023 Diabetic Eye Exam 10/19/2024 10/20/2023, , 10/20/2023, Additional history exists GFR 12/05/2024 12/06/2023, 07/0 12/2023, 11/21/2023, Additional history exists DTaP,Tdap,and Td Vaccines (3 [...] this encounter Medical Devices Implanted Type Area Black And White Printer Operator Device Identifier Shelf Expiration Date Model / Serial / Lot Port Power Mri W8fr Cath - [id number] Implanted:Qty: 1 on 11/02/2023 by Mariah Abdul MD at OR [facility] [address] [address] Right: Chest CR BARD : PERIPHERAL VASCULAR 08/20/2024 [id number] / / [id number] documented as of this encounter Visit Diagnoses Diagnosis Encounter for antineoplastic chemotherapy- Primary Malignant neoplasm of upper-inner quadrant of left breast in female, estrogen receptor negative (HCC) documented in this encounter Administered Medications Active Administered Medications - up to 3 most recent administrations Medication Order MAR Action Action Date Dose Rate Site diphenhydrAMINE (Benadryl) inj 50 mg 50 mg, IV Push, ONCE PRN Other, Hypersensitivity Reaction, Starting on Tue12/06/23 at 0907, Until Tue12/07/23 at 0906, For 24 hours EPINEPHrine 1 MG/ML inj 0.3 mg 0.3 mg, Intramuscular, ONCE PRN Other, Hypersensitivity Reaction or Anaphylaxis, Starting on Tue12/06/23 at 0907, Until Tue12/07/23 at 0906, For 24 hours hEParin 100 UNIT/ML Lock Flush inj 500 Units 500 Units (5 mL), IV Lock, PRN Other, IV Flush, Starting on Tue12/06/23 at 0907, Until Tue12/07/23 at 09, For 24 hours, Do not flush if lock, PICC, or central line not in place; IV infusing or unable to flush. Given 12/06/2023 12:31 PM EDT 500 Units Hydrocortisone Sod Suc (PF) (Solu-Cortef) inj 100 mg 100 mg, IV Push, ONCE PRN Other, Hypersensitivity Reaction, Starting on Tue12/06/23 at 0907, Until Tue12/07/23 at 0906, For 24 hours LORAzepam (Ativan) tab 0.5 mg 0.5 mg, Oral, ONCE PRN Anxiety, Nausea, Starting on Tue12/06/23 at 1015, Until Discontinued NSS infusion Intravenous, at 50 mL/hr, PRN, Starting on Tue12/06/23 at 1015, Until Discontinued, Maintenance line Start Infusion 12/06/2023 9:26 AM EDT 50 mL/hr oxygen GAS Inhalation, OXYGEN, First dose on Tue12/06/23 at 0945, Until Discontinued, Device/Managed by: Low Flow Device, Goal SPO2 (%): 91-95, Starting Device: Nasal Cannula, Initial Flow Rate (LPM): 2, Lowest Support: Nasal Cannula: Flow 0-6 LPM. Titrate up/down by 1 LPM., Higher Support: Non-Rebreather (NRB) Mask: Minimum of 10 LPM. Titrate to maintain bag inflation., Titration Interval: Q2 minutes and as needed., Notify Provider: For sudden DECREASE in resting SPO2 to less than 85% and when escalating delivery device., Wean patient off Oxygen when the oxygen saturation is greater than or equal to 93% sodium chloride 0.9 % flush central line 10 mL 10 mL, IV Push, PRN Other, IV Flush, Starting on Tue12/06/23 at 0907, Until Tue12/07/23 at 0906, For 24 hours, Do not flush if lock, PICC, or central line not in place; IV infusing or unable to flush. Given 12/06/2023 12:31 PM EDT 10 mL Inactive Administered Medications - up to 3 most recent administrations Medication Order MAR Action Action Date Dose Rate Site CARBOplatin (Paraplatin) 127 mg in D5W 250 mL infusion 127 mg (rounded from 126.45 mg, Target AUC = 1.5), IV Piggyback, at 510 mL/hr Administer over 30 Minutes, PROTECT FROM LIGHT, ONCE, 1 dose, On Tue12/06/23 at 1215 Start Infusion 12/06/2023 11:53 AM EDT 127 mg 510 mL/hr dexAMETHasone (Decadron) tab 12 mg 12 mg, Oral, ONCE, On Tue12/06/23 at 0945, For 1 dose Given 12/06/2023 9:27 AM EDT 12 mg diphenhydrAMINE (Benadryl) inj 25 mg 25 mg, IV Push, ONCE, On Tue12/06/23 at 0945, For 1 dose Given 12/06/2023 9:27 AM EDT 25 mg Famotidine (Pepcid) tab 20 mg 20 mg, Oral, ONCE, On Tue12/06/23 at 1015, For 1 dose Given 12/06/2023 9:27 AM EDT 20 mg PACLitaxel (Taxol) 138 mg in NSS 250 mL infusion 138 mg (rounded from 137.6 mg = 80 mg/m2 1.72 m2 Treatment Plan BSA from Recorded weight), IV Piggyback, ONCE, 1 dose, On Tue12/06/23 at 1115, Administer over 60 Minutes, Administer through 0.22 micron low protein binding filter! Start Infusion 12/06/2023 10:45 AM EDT 138 mg 255 mL/hr Palonosetron (Aloxi) inj SOLN 0.25 mg 0.25 mg, IV Push, ONCE, On Tue12/06/23 at 0945, For 1 dose, Restricted per S antiemetic guidelines Given 12/06/2023 9:27 AM EDT 0.25 mg documented in this encounter Advance Directives * Full Code (Latest Code Status on File) Date Activated Date Inactivated Comments 11/02/2023 11:37 AM 11/02/2023 6:38 PM This order reflects the patients wishes and were consensually agreed upon. Question Answer Comments Discussion of Advance Directives occurred with: Patient Care Teams Service Desk Agent Relationship Specialty Start Date End Date Toby Bell MD [address] [facility] [place] [phone] PCP - General Family Medicine 02/08/22 documented as of this encounter
--- OUTSIDE RECORDS SUMMARY | 2023-12-07 20:31 | External Medical Summary ---
Author Name Unknown Address Unknown Organization K09:[facility] [address] [place] [address] Laboratory Report Ordering Provider Test Date Status LEANN ROWELL 12/06/2023 08:31:19 Final Observation Date Value Abnormality Reference (Units ) Status BUN 12/06/2023 08:31:19 14 6-20 (mg/dL) Final Creatinine 12/06/2023 08:31:19 0.6 0.5-1.0 (mg/dL) Final Glomerular filtration rate/1.73 sq M.predicted [Volume Rate/Area] in Serum, Plasma or Blood by Creatinine-based formula (CKD-EPI) 12/06/2023 08:31:19 89 >=60 (mL/min) Final eGFR is calculated based on the CKD-EPI 2020 equation Sodium 12/06/2023 08:31:19 137 135-146 (m mol/L) Final Potassium 12/06/2023 08:31:19 4.6 3.5-5.1 (m mol/L) Final Cl 12/06/2023 08:31:19 103 98-107 (mm ol/L) Final CO2 12/06/2023 08:31:19 21 Below low normal 22- 32 (mmol/L) Final Anion gap 12/06/2023 08:31:19 13 7-15 (mmol /L) Final Glucose 12/06/2023 08:31:19 189 Above high normal 70 -120 (mg/dL) Final Albumin 12/06/2023 08:31:19 4.1 3.8-5.0 (g /dL) Final AST (Aspartate aminotransferase) 12/06/2023 08:31:19 37 Above high normal 10-35 (U/L) Final Alk Phos 12/06/2023 08:31:19 64 35-130 (U/ L) Final Bilirubin, Total 12/06/2023 08:31:19 0.5 <=1 .2 (mg/dL) Final Calcium 12/06/2023 08:31:19 9.0 8.4-10.2 ( mg/dL) Final Protein 12/06/2023 08:31:19 7.0 6.0-8.3 (g /dL) Final ALT (Alanine aminotransferase) 12/06/2023 08:31:19 38 Above high normal 10-35 (U/L) Final Performing Location [facility] [address] [place] [address]
--- OUTSIDE RECORDS SUMMARY | 2023-12-07 20:31 | External Medical Summary ---
Author Name Unknown Address Unknown Organization K09:[facility] [place] [address] Laboratory Report Ordering Provider Test Date Status LEANN ROWELL 12/06/2023 08:31:19 Final Observation Date Value Abnormality Reference (Units ) Status Nucleated erythrocytes/100 leukocytes [Ratio] in Blood by Automated count 12/06/2023 08:31:19 Final Performing Location [facility] [address]
--- OUTSIDE RECORDS SUMMARY | 2023-12-07 20:31 | External Medical Summary | Summary of Care ---
Author Name Unknown Organization [facility] Address [address] [place] [address] Phone [phone] Care Team Providers Care Hall Supervisor Name Role Phone Toby Bell MD Primary Care Provider +1- [phone] Reason for Visit * Reason Comments Chemotherapy C1/D1 - Keytruda/Tax ol/Carbo * Episode Based Medications (Routine) - Authorized Specialty Diagnoses / Procedures Referred By Contac t Referred To Contact Diagnoses Encounter for antineoplastic chemotherapy Malignant neoplasm of upper-inner quadrant of left breast in female, estrogen receptor negative (HCC) Procedures FL PALONOSETRON HCL FL CARBOPLATIN INJECTION FL INJ PEMBROLIZUMAB FL PACLITAXEL INJECTION DOXO, EMEND, CYTOXAN-TO START 01/22/24, UDENYCA TO START 01/23/24 PER TREATMENT PLAN Nas Palacios MD [address] [place] [address] Anc Hem/Onc [address] [address] Referral ID Status Reason Start Date Expiration Date V isits Requested Visits Authorized [id number] Authorized 10/27/2023 01/16/2024 999 99 Encounter Details Date Type Department Care Team (Latest Contact Info) Description 11/07/2023 11:00 AM EDT Hem/Onc Treatment Hematology/Oncolog y Treatment, [address] [address] Encounter for antineoplastic chemotherapy*; Malignant [...] No 10/11/2023 Does the household have a va medical centerr source of income? (Household - for ages [...] AM EDT Laboratory Laboratory [facility] [place] [address] [facility] [place] [phone] Christina [facility] [address] [facility] [place] [address] 12/06/2023 8:30 AM EDT Office Visit Hematology/Oncology [facility] [place] [address] [facility] [place] [phone] Alissa Roldan CRNP [address] [place] [address] 12/06/2023 9:00 AM EDT Hem/Onc Treatment Hematology/Oncology [address], [address] [phone] Christina, Chair 10 Hem Onc [place] [address] [place] [address] 12/12/2023 10:00 AM EDT Laboratory Laboratory [facility] [place] [address] [place] [phone] Christina, Lab [facility] [address] [facility] [place] [address] 12/12/2023 11:00 AM EDT Hem/Onc Treatment Hematology/Oncology [address], [address] [phone] Park, Chair 6 Hem Onc [address] [place] [address] 02/03/2024 10:30 AM EDT Telemedicine Genetics HemOnc, [facility] [address] [place] [address] Mabel Ford, MS [address] [place] [address] 03/16/2024 2:40 PM EDT Office Visit Family [facility] [address] [place] [address] Toby Bell MD [address] [place], [place] [phone] 04/10/2024 10:30 AM EST Imaging Radiology, [address] [address] Health Maintenance Due Date Last Done Comments [...] this encounter Medical Devices Implanted Type Area Eyedotter Device Identifier Shelf Expiration Date Model / Serial / Lot Port Power Mri W8fr Cath - [id number] Implanted:Qty: 1 on 11/02/2023 by Mariah Abdul MD at OR [facility] Right: Chest CR BARD : PERIPHERAL VASCULAR 08/20/2024 [id number] / / [id number] documented as of this encounter Visit Diagnoses [...] at 1200, For 1 dose, Restricted per [facility] antiemetic guidelines Given 11/07/2023 11:37 AM EDT [...] Advance Directives occurred with: Patient Care Teams Hall Supervisor Relationship Specialty Start Date End Date Toby Bell MD [address] [facility] [address] PCP - General Family Medicine 02/08/22 documented as of this encounter
--- OUTSIDE RECORDS SUMMARY | 2023-12-07 20:31 | External Medical Summary | Summary of Care ---
Author Name Unknown Organization [facility] Address [address] [place] [address] Phone [phone] Care Team Providers Care Oracle Identity Management Consultant Name Role Phone Toby Bell MD Primary Care Provider +1- [phone] Reason for Visit * Reason Comments Outpatient Testing Encounter Details Date Type Department Care Team (Late st Contact Info) Description 12/06/2023 8:00 AM EDT Laboratory Laboratory [facility] [place] [address] [place] [address] [facility] Lab Scenery [address] [place] [address] Malignant neoplasm of upper-inner quadrant of left [...] No 10/11/2023 Does the household have a re gular source of income? (Household - for ages [...] on file documented as of this encounter Plan of Treatment Upcoming Encounters Date Type Department Care Team (Late st Contact Info) Description 12/06/2023 9:00 AM EDT Hem/Onc Treatment Hematology/Oncology Treatment, [address] [phone] Christina, Chair [address] Hem On[address] [place] [address] Arrived 12/12/2023 10:00 AM EDT Laboratory Laboratory [facility] [address] [place] [phone] Christina, Lab [address] [place] [address] 12/12/2023 11:00 AM EDT Hem/Onc Treatment Hematology/Oncology Treatment[address] [place] [phone] Christina, Chair 6 Hem Onc Scenery [address] [facility] [place] [address] 02/03/2024 10:30 AM EDT Telemedicine Genetics HemOnc, [facility] [address] [place] [address] Mabel Ford, MS [address] [place] [address] 03/16/2024 2:40 PM EDT Office Visit [facility] [address] [place] [address] Toby Bell MD [address] [place], [place] [phone] 04/10/2024 10:30 AM EST Imaging Radiology[address] [place] [address] Pending Results Name Type Priority Associated Diagnoses Date /Time CBC WITH WBC DIFFERENTIAL Lab STAT Malignant neoplasm of upper-inner quadrant of left breast in female, estrogen receptor negative (HCC) 12/06/2023 8:31 AM EDT COMPREHENSIVE METABOLIC PANEL Lab STAT Malignant neoplasm of upper-inner quadrant of left breast in female, estrogen receptor negative (HCC) 12/06/2023 8:31 AM EDT CBC Lab STAT Malignant neoplasm of upper-inner quadrant of left breast in female, estrogen receptor negative (HCC) 12/06/2023 8:31 AM EDT DIFFERENTIAL, AUTOMATED Lab STAT Malignant neoplasm of upper-inner quadrant of left breast in female, estrogen receptor negative (HCC) 12/06/2023 8:31 AM EDT Health Maintenance Due Date Last Done Comments DXA Scan 1939 Albumin/Creatinine Ratio 09/16/1957 COVID-19 Vaccine ( - season) 2023 09/16/2020, 08/15/2020 HbA1c 05/06/2023 11/04/2022 [...] this encounter Medical Devices Implanted Type Area Technology Officer Device Identifier Shelf Expiration Date Model / Serial / Lot Port Power Mri W8fr Cath - [id number] Implanted:Qty: 1 on 11/02/2023 by Mariah Abdul MD at OR [facility] Right: Chest CR BARD : PERIPHERAL VASCULAR 08/20/2024 [id number] / / [id number] documented as of this encounter Visit Diagnoses Diagnosis Malignant neoplasm of upper-inner quadrant of left breast in female, estrogen receptor negative (HCC) documented in this encounter Advance Directives * Full Code (Latest Code Status on File) Date Activated Date Inactivated Comments 11/02/2023 11:37 AM 11/02/2023 6:38 PM This order reflects the patients wishes and were consensually agreed upon. Question Answer Comments Discussion of Advance Directives occurred with: Patient Care Teams Oracle Identity Management Consultant Relationship Specialty Start Date End Date Toby Bell MD [address] [place] [address] PCP - General Family Medicine 02/08/22 documented as of this encounter
--- OUTSIDE RECORDS SUMMARY | 2023-12-07 20:31 | External Medical Summary | Summary of Care ---
Author Name Unknown Organization [facility] Address [address] [place] [address] Phone [phone] Care Team Providers Care Creative Recruiter Name Role Phone Toby Bell MD Primary Care Provider +1- [phone] Reason for Visit * Reason Comments Chemotherapy C1/D1 - Keytruda/Tax ol/Carbo * Episode Based Medications (Routine) - Authorized Specialty Diagnoses / Procedures Referred By Contac t Referred To Contact Diagnoses Encounter for antineoplastic chemotherapy Malignant neoplasm of upper-inner quadrant of left breast in female, estrogen receptor negative (HCC) Procedures [place] PALONOSETRON HCL WA CARBOPLATIN INJECTION WA INJ PEMBROLIZUMAB [place] PACLITAXEL INJECTION DOXO, EMEND, CYTOXAN-TO START 01/22/24, UDENYCA TO START 01/23/24 PER TREATMENT PLAN Nas Palacios MD [address] [place] [address] Anc Hem/Onc [address] [address] Referral ID Status Reason Start Date Expiration Date V isits Requested Visits Authorized [id number] Authorized 10/27/2023 01/16/2024 999 99 Encounter Details Date Type Department Care Team (Latest Contact Info) Description 11/07/2023 11:00 AM EDT Hem/Onc Treatment Hematology/Oncolog y Treatment, [address] [address] Encounter for antineoplastic chemotherapy*; Malignant [...] No 10/11/2023 Does the household have a up health systemr source of income? (Household - for ages [...] Description 12/06/2023 8:00 AM EDT Laboratory Laboratory [facility] [place] [address] [facility] [place] [phone] Christina [facility] [address] [facility] [place] [address] 12/06/2023 8:30 AM EDT Office Visit Hematology/Oncology [facility] [place] [address] [facility] [place] [phone] Alissa Roldan CRNP [address] [place] [address] 12/06/2023 9:00 AM EDT Hem/Onc Treatment Hematology/Oncology Treatment, [address] [address] hCristina, Chair 10 Hem Onc [place] [address] [place] [address] 12/12/2023 10:00 AM EDT Laboratory Laboratory [facility] [place] [address] [place] [phone] Christina, Lab [facility] [address] [facility] [place] [address] 12/12/2023 11:00 AM EDT Hem/Onc Treatment Hematology/Oncology Treatment, [address] [phone] Park, Chair 6 Hem Onc [address] [place] [address] 02/03/2024 10:30 AM EDT Telemedicine Genetics HemOnc, [facility] [address] [place] [address] Mabel Ford, MS [address] [place] [address] 03/16/2024 2:40 PM EDT Office Visit Family [facility] [place] [facility] [address] [place] [address] Toby Bell MD [address] [place], [place] [id number] 04/10/2024 10:30 AM EST Imaging Radiology, [address] [address] Health Maintenance Due Date Last Done Comments [...] this encounter Medical Devices Implanted Type Area Food Service Sales Representatives Device Identifier Shelf Expiration Date Model / Serial / Lot Port Power Mri W8fr Cath - [id number] Implanted:Qty: 1 on 11/02/2023 by Mariah Abdul MD at OR [facility] Right: Chest CR BARD : PERIPHERAL VASCULAR 08/20/2024 [id number] / / [id number] documented as of this encounter Visit Diagnoses [...] at 1200, For 1 dose, Restricted per [facility] antiemetic guidelines Given 11/07/2023 11:37 AM [...] Advance Directives occurred with: Patient Care Teams Creative Recruiter Relationship Specialty Start Date End Date Toby Bell MD [address] [facility] [address] PCP - General Family Medicine 02/08/22 documented as of this encounter
--- OUTSIDE RECORDS SUMMARY | 2023-12-07 20:32 | External Medical Summary | Summary of Care ---
Author Name Unknown Organization [facility] Address [address] [place] [address] Phone [phone] Care Team Providers Care Childcare Center Administrator Name Role Phone Toby Bell MD Primary Care Provider +1- [phone] Reason for Visit * Reason Onset Date Comments FYI 11/29/2023 Dr. Palacios Encounter Details Date Type Department Care Team (Late st Contact Info) Description 11/29/2023 Telephone Hematology/Oncology [facility] [address] [place] [address] Services, Scheduling [address] [place] [address] FYI (Dr. Palacios ) Allergies Active Allergy Reactions Criticality Noted Date Comments Guaifenesin & Derivatives 10/11/2000 Daily--hives Lisinopril Edema face/lips/tongue High 08/05/2021 documented as of this encounter (statuses as of 11/29/2023) Medications Medication Sig Dispensed Refills Start Date [...] as of this encounter (statuses as of 11/29/2023) Active Problems Problem Noted Date Diagnosed Date [...] as of this encounter (statuses as of 11/29/2023) Immunizations Name Administration Dates Next Due COVID-19 mRNA, LNP-s, No Pre serve, 2-Dose Series (Moderna) 09/16/2020 Influenza, Whole Virus 05/20/2000,03/09/1999 Pneumococcal Conjugate Vacc, 13 Valent (Prevnar) 03/15/2016 Pneumococcal Polysaccharide PPV23 (Pneumovax) Seasonal Influenza, Quadrivalent Hd (Fluzone Hd) 03/04/2023,02/08/2022 Seasonal Influenza, Split, IIV3, With Preserve, Inj 04/16/2002 TDAP, Age 7 and older, IM (Adacel) [...] on file documented as of this encounter Miscellaneous Notes * Telephone Encounter - [place] Bonilla RN - 11/29/2023 9:01 AM EDT Received call from patient stating she was feeling tired after her treatment and started to have chills last night. She states she took "a couple" of Tylenol and felt better, denies current symptoms.Temp this morning was 97.5. Advised patient that she may feel tired over the next few days, to restand hydrate well as this can be expected. If she starts to develop chills and or sweat, to please take her temp and call us if it's above 99.5. Ok for her to take Tylenol as needed. * Telephone Encounter - Peyton Sesay OSA - 11/29/2023 8:58 AM EDT What is the reason for call? Patient had treatment yesterday and thinks she might have a low grade fever and is feeling weak. What Clinic is the patient trying to reach? [facility]- Is the clinic open? Yes- Other: transfer to specialty Call was warm transferred to [place] documented in this encounter Plan of Treatment Upcoming Encounters Date Type Department Care Team (Late st Contact Info) Description 12/06/2023 8:00 AM EDT Laboratory [facility] [address] [place], [place] [phone] Christina, Lab Scenery [address] [place], [place] [address] 12/06/2023 8:30 AM EDT Office Visit Hematology/Oncology Scene [place] [address] [place] [address] Alissa Roldan, BO [address] [place] [address] 12/06/2023 9:00 AM EDT Hem/Onc Treatment Hematology/Oncology Treatment, [address], [place] [address] Christina, Chair 10 Hem Onc [address] [place] [address] 12/12/2023 10:00 AM EDT Laboratory Laboratory [facility] [place] [address] [place] [address] Christina, Lab [facility] [address] [place], [place] [address] 12/12/2023 11:00 AM EDT Hem/Onc Treatment Hematology/Oncology Treatment, [address], [place] [phone] Christina, Chair 6 Hem Onc Scenery [address] [facility] [place], [place] [address] 02/03/2024 10:30 AM EDT Telemedicine Genetics HemOnc, [facility] [address] [place] [address] Mabel Ford, MS [address] [place] [address] 03/16/2024 2:40 PM EDT Office Visit [address] [address] Toby Bell MD [address] [place] [address] 04/10/2024 10:30 AM EST Imaging Radiology, [address] [place], [place] [address] Health Maintenance Due Date Last Done Comments DXA Scan 1939 Albumin/Creatinine Ratio 09/16/1957 COVID-19 Vaccine (2022- season) 2023 09/16/2020, 08/15/2020 HbA1c 05/06/2023 11/04/2022 [...] this encounter Medical Devices Implanted Type Area Group Care Worker Device Identifier Shelf Expiration Date Model / Serial / Lot Port Power Mri W8fr Cath - [id number] Implanted:Qty: 1 on 11/02/2023 by Mariah Abdul MD at OR [facility] Right: Chest CR BARD : PERIPHERAL VASCULAR 08/20/2024 [id number] / / [id number] documented as of this encounter Advance Directives * Full Code (Latest Code Status on File) Date Activated Date Inactivated Comments 11/02/2023 11:37 AM 11/02/2023 6:38 PM This order reflects the patients wishes and were consensually agreed upon. Question Answer Comments Discussion of Advance Directives occurred with: Patient Care Teams Childcare Center Administrator Relationship Specialty Start Date End Date Toby Bell MD [address] [facility] [place] [address] PCP - General Family Medicine 02/08/22 documented as of this encounter
--- OUTSIDE RECORDS SUMMARY | 2023-12-07 20:32 | External Medical Summary | Summary of Care ---
Author Name Unknown Organization [facility] Address [address] [place] [address] Phone [phone] Care Team Providers Care Case Liner Name Role Phone Toby Bell MD Primary Care Provider +1- [phone] Reason for Visit * Reason Comments Chemotherapy [id number]/Taxol * Episode Based Medications (Routine) - Authorized Specialty Diagnoses / Procedures Referred By Ese medina Referred To Contact Diagnoses Encounter for antineoplastic chemotherapy Malignant neoplasm of upper-inner quadrant of left breast in female, estrogen receptor negative (HCC) Procedures WI PALONOSETRON HCL WI CARBOPLATIN INJECTION WI INJ PEMBROLIZUMAB WI PACLITAXEL INJECTION DOXO, EMEND, CYTOXAN-TO START 01/22/24, UDENYCA TO START 01/23/24 PER TREATMENT PLAN Nas Palacios MD [address] [place] [address] Anc Hem/Onc [address] [address] Referral ID Status Reason Start Date Expiration Date V isits Requested Visits Authorized [id number] Authorized 10/27/2023 01/16/2024 999 99 Encounter Details Date Type Department Care Team (Latest Contact Info) Description 11/14/2023 12:00 PM EDT Hem/Onc Treatment Hematology/Oncolog y Treatment, [address] [address] Christina, Chair 10 Hem Onc Scenery [address] [place] [address] Encounter for antineoplastic chemotherapy*; Malignant neoplasm of [...] 10/11/2023 Does the household have a re lar source of income? (Household - for ages [...] Sign Reading Time Taken Comments Blood Pressure 181/79 11/14/2023 2:35 PM EDT Pulse 85 11/14/2023 2:35 PM EDT Temperature 36.7 C (98.1 F) 11/14/2023 2:35 PM ED T Respiratory Rate 16 11/14/2023 2:35 PM EDT Oxygen Saturation 100% 11/14/2023 2:35 PM EDT Inhaled Oxygen Concentration - - Weight 62.3 kg (137 lb 6.4 oz) 11/14/2023 2:35 P M EDT Height - - Body Mass Index 21.52 11/02/2023 11:54 AM EDT documented in this encounter Nursing Notes * Kenyatta Horne RN - 11/14/2023 2:59 PM EDT Goals: Patient will remain free from injury. Possible barriers to meeting goals: ambulating with pole, age Stability of the patient: Moderately stable - low risk of patient condition declining or worsening Summary regarding today's goals: Met: Pt remained free of harm Patient tolerated treatment well without any acute issues or problems. Patient left facility in stable condition and denied any further needs. * Kenyatta Horne RN - 11/14/2023 2:37 PM EDT Ch 9 Port accessed, no complications. Pt comfortable and denies further needs Chemotherapy/Immunotherapy agents: CARBOPLATIN and TAXOL Consent for chemotherapy drug treatment complete, dated, and signed? yes, date - 10/26/23 Treatment lab parameters met? Yes Has treatment weight changed > than 10%? No Treatment preauthorized? Yes VITALS Filed Vitals: 11/14/23 1435 BP: 181/79 Pulse: 85 Resp: 16 Temp: 36.7 C (98.1 F) SpO2: 100% Weight: 62.3 kg (137 lb 6.4 oz) Urine protein: N/A Patient education completed [...] NEURO: denies symptoms CV/RESP: denies symptoms GI/: constipation: Pt got OTC dulcolax and took 5-6 days ago without success and stopped taking because unsure if to take daily. Pt instructed to take daily and to add miralax to start today. No BM for 5 days. Denies ab pain or tenderness. States passing gas but not as much as usual. OTHER: denies any additional symptoms PAIN: 0 Safety and Risk for Injury Patient will remain free from injury. Ensure appropriate safety devices are available. Provide and maintain safe environment. documented in this encounter Plan of Treatment Upcoming Encounters Date Type Department Care Team (Late st Contact Info) Description 12/06/2023 8:00 AM EDT Laboratory Laboratory [address] [place] [phone] Basilio Vasquez [address] [place] [address] 12/06/2023 8:30 AM EDT Office Visit Hematology/Oncology [address] [place] [phone] Alissa Roldan CRNP [address] [place] [address] 12/06/2023 9:00 AM EDT Hem/Onc Treatment Hematology/Oncology [address] [phone] Christina, Chair 10 Hem Onc [address] [place] [address] 12/12/2023 10:00 AM EDT Laboratory Laboratory [facility] [address] [place] [phone] Christina Lab [address] [place] [address] 12/12/2023 11:00 AM EDT Hem/Onc Treatment Hematology/Oncology [address] [phone] Park, Chair 6 Hem Onc [address]enery [address] [place] [address] 02/03/2024 10:30 AM EDT Telemedicine Genetics HemOnc, [facility] [address] [place] [address] Mabel Ford, MS [address] [place] [address] 03/16/2024 2:40 PM EDT Office Visit Family [facility] [address] [place] [address] Toby Bell MD [address] [place] [address] 04/10/2024 10:30 AM EST Imaging Radiology, [place] [phone] [facility] [place] [address] Health Maintenance Due Date Last Done Comments DXA Scan 1939 Albumin/Creatinine Ratio 09/16/1957 COVID-19 Vaccine ( - 2022- season) 2023 09/16/2020, 08/15/2020 HbA1c [...] this encounter Medical Devices Implanted Type Area Marine Scientist Device Identifier Shelf Expiration Date Model / Serial / Lot Port Power Mri W8fr Cath - [id number] Implanted:Qty: 1 on 11/02/2023 by Mariah Abdul MD at OR [facility] Right: Chest CR BARD : PERIPHERAL VASCULAR 08/20/2024 [id number] / / [id number] documented as of this encounter Visit Diagnoses [...] PROTECT FROM LIGHT, ONCE, 1 dose, On Tue11/14/23 at 1530 Start Infusion 11/14/2023 2:11 PM EDT 127 mg 510 mL/hr dexAMETHasone (Decadron) tab 12 mg 12 mg, Oral, ONCE, On Tue11/14/23 at 1300, For 1 dose Given 11/14/2023 12:34 PM EDT 12 mg diphenhydrAMINE (Benadryl) inj 25 mg 25 mg, IV Push, ONCE, On Tue11/14/23 at 1300, For 1 dose Given 11/14/2023 12:33 PM EDT 25 mg Famotidine (Pepcid) tab 20 mg 20 mg, Oral, ONCE, On Tue11/14/23 at 1330, For 1 dose Given 11/14/2023 12:33 PM EDT 20 mg hEParin 100 UNIT/ML Lock Flush inj 500 Units 500 Units (5 mL), IV Lock, PRN Other, IV Flush, Starting on Tue11/14/23 at 1220, Until Tue11/14/23 at 1906, For 24 hours, Do not flush if lock, PICC, or central line not in place; IV infusing or unable to flush. Given 11/14/2023 2:50 PM EDT 500 Units NSS infusion Intravenous, at 50 mL/hr, PRN, Starting on Tue11/14/23 at 1330, Until Tue11/14/23 at 1906, Maintenance line Start Infusion 11/14/2023 12:33 PM EDT 50 mL/hr PACLitaxel (Taxol) 138 mg in NSS 250 mL infusion 138 mg (rounded from 137.6 mg = 80 mg/m2 1.72 m2 Treatment Plan BSA from Recorded weight), IV Piggyback, ONCE, 1 dose, On Tue11/14/23 at 1430, Administer over 60 Minutes, Administer through 0.22 micron low protein binding filter! Start Infusion 11/14/2023 1:02 PM EDT 138 mg 255 mL/hr Palonosetron (Aloxi) inj SOLN 0.25 mg 0.25 mg, IV Push, ONCE, On Tue11/14/23 at 1300, For 1 dose, Restricted per [facility] antiemetic guidelines Given 11/14/2023 12:33 PM EDT 0.25 mg sodium chloride 0.9 % flush central line 10 mL 10 mL, IV Push, PRN Other, IV Flush, Starting on Tue11/14/23 at 1220, Until Tue11/14/23 at 1906, For 24 hours, Do not flush if lock, PICC, or central line not in place; IV infusing or unable to flush. Given 11/14/2023 2:50 PM EDT 10 mL documented in this encounter Advance Directives * Full Code (Latest Code Status on File) Date Activated Date Inactivated Comments 11/02/2023 11:37 AM 11/02/2023 6:38 PM This order reflects the patients wishes and were consensually agreed upon. Question Answer Comments Discussion of Advance Directives occurred with: Patient Care Teams Case Liner Relationship Specialty Start Date End Date Toby Bell MD [address] [facility] [place] [address] PCP - General Family Medicine 02/08/22 documented as of this encounter
--- OUTSIDE RECORDS SUMMARY | 2023-12-07 20:32 | External Medical Summary | Summary of Care ---
Author Name Unknown Organization [facility] Address [address] [place] [address] Phone [phone] Care Team Providers Care Reprographics Technician Name Role Phone Toby Bell MD Primary Care Provider +1- [phone] Reason for Visit * Reason Comments Outpatient Testing Encounter Details Date Type Department Care Team (Late st Contact Info) Description 11/28/2023 10:10 AM EDT Laboratory Laboratory Scenery [place] [address] [place] [address] [facility] Lab Scenery [address] [place] [address] Malignant neoplasm of upper-inner quadrant of left breast in female, estrogen receptor negative (HCC) Allergies Active Allergy Reactions Criticality Noted Date Comments Guaifenesin & Derivatives 10/11/2000 Daily--hives Lisinopril Edema face/lips/tongue High 08/05/2021 documented as of this encounter (statuses as of 11/28/2023) Medications Medication Sig Dispensed Refills Start Date [...] as of this encounter (statuses as of 11/28/2023) Active Problems Problem Noted Date Diagnosed Date [...] as of this encounter (statuses as of 11/28/2023) Immunizations Name Administration Dates Next Due COVID-19 [...] Care Team (Late st Contact Info) Description 11/28/2023 11:00 AM EDT Hem/Onc Treatment Hematology/Oncology Treatment[address] [place] [phone] Christina, Chair 10 Hem Onc [address] [place] [address] Arrived 12/06/2023 8:00 AM EDT Laboratory Laboratory [facility] [place] [address] [address] [place] [phone] Christina Lab [place] [address] [facility] [place] [address] 12/06/2023 8:30 AM EDT Office Visit Hematology/Oncology [facility] [place] [address] [address] [place] [phone] Alissa Roldan CRNP 400 [facility] [place] [address] 12/06/2023 9:00 AM EDT Hem/Onc Treatment Hematology/Oncology Treatment, [place] 200 [facility] [place] [phone] Christina, Chair 10 Hem Onc [place] [address] [place] [address] 12/12/2023 10:00 AM EDT Laboratory Laboratory Scenery [place] [address] [place], [place] [address] Christina, Lab Scenery [address] [place], [place] [address] 12/12/2023 11:00 AM EDT Hem/Onc Treatment Hematology/Oncology Treatment, [place] [address] [place] [phone] Christina, Chair 6 Hem Onc Scenery [address] [place], [place] [address] 02/03/2024 10:30 AM EDT Telemedicine Genetics HemOnc, [facility] [address] [place], [place] [phone] [place]abel [place], [place] [address] [place] [address] 03/16/2024 2:40 PM EDT Office Visit [facility] [address] [place] [address] Toby Bell MD [address] [place] [address] 04/10/2024 10:30 AM EST Imaging Radiology, [address] [place], [place] [address] Pending Results Name Type Priority Associated Diagnoses Date /Time CBC WITH WBC DIFFERENTIAL Lab STAT Malignant neoplasm of upper-inner quadrant of left breast in female, estrogen receptor negative (HCC) 11/28/2023 9:45 AM EDT COMPREHENSIVE METABOLIC PANEL Lab STAT Malignant neoplasm of upper-inner quadrant of left breast in female, estrogen receptor negative (HCC) 11/28/2023 9:45 AM EDT CBC Lab STAT Malignant neoplasm of upper-inner quadrant of left breast in female, estrogen receptor negative (HCC) 11/28/2023 9:45 AM EDT DIFFERENTIAL, AUTOMATED Lab STAT Malignant neoplasm of upper-inner quadrant of left breast in female, estrogen receptor negative (HCC) 11/28/2023 9:45 AM EDT Health Maintenance Due Date Last Done Comments DXA Scan 1940 Albumin/Creatinine Ratio 09/16/1958 COVID-19 Vaccine ( season) 2023 09/16/2020, 08/15/2020 HbA1c 05/06/2023 11/04/2022 Influenza Vaccine (FLU shot) (#1) 2024 03/04/2023, 02/08/2022, 02/14/2020, Additional history exists Depression Screening 10/10/2024 10/11/2023 Diabetic Foot Exam 10/10/2024 10/11/2023 Diabetic Eye Exam 10/19/2024 10/20/2023, , 10/20/2023, Additional history exists GFR 11/20/2024 11/21/2023, 10/22, 11/07/2023, Additional history exists DTaP,Tdap,and Td Vaccines (3 [...] this encounter Medical Devices Implanted Type Area Chemical Processing Equipment Repairer Device Identifier Shelf Expiration Date Model / Serial / Lot Port Power Mri W8fr Cath - [id number] Implanted:Qty: 1 on 11/02/2023 by Mariah Abdul MD at OR [facility] Right: Chest CR BARD : PERIPHERAL VASCULAR 08/20/2024 [id number] / / [id number] documented as of this encounter Visit Diagnoses [...] Advance Directives occurred with: Patient Care Teams Reprographics Technician Relationship Specialty Start Date End Date Toby Bell MD [address] [place] [address] PCP - General Family Medicine 02/08/22 documented as of this encounter
--- OUTSIDE RECORDS SUMMARY | 2023-12-07 20:32 | External Medical Summary | Summary of Care ---
Author Name Unknown Organization [facility] Address [address] [place] [address] Phone [phone] Care Team Providers Care Immigration Officer Name Role Phone Toby Bell MD Primary Care Provider [phone]- [phone] Reason for Visit * Reason Comments Outpatient Testing Encounter Details Date Type Department Care Team (Late st Contact Info) Description 11/28/2023 10:10 AM EDT Laboratory Laboratory Scenery [place] [address] [place] [address] [facility] Lab Scenery [address] [place] [address] Malignant neoplasm of upper-inner quadrant of left [...] Description 12/06/2023 8:00 AM EDT Laboratory Laboratory [facility] [place] [address] [place] [address] [phone] [place] [address] 12/06/2023 8:30 AM EDT Office Visit Hematology/Oncology [facility] [place] [address] [place] [address] [phone] Alissa Roldan CRNP [address] [place], [place] [address] 12/06/2023 9:00 AM EDT Hem/Onc Treatment Hematology/Oncology Treatment, [place] [address] [place] [phone] Christina, Chair 10 Hem [place] [place] [address] 12/12/2023 10:00 AM EDT Laboratory Laboratory [facility] Christina [place] [address] [phone] [place] [address] 12/12/2023 11:00 AM EDT Hem/Onc Treatment Hematology/Oncology Treatment, [place] [address] [place] [phone] Park, Chair 6 Hem Onc Scenery [address] [place] [address] 02/03/2024 10:30 AM EDT Telemedicine Genetics HemOnc, [facility] [address] [place], [place] [phone] [place], [place] [address] [place], [place] [id number] 03/16/2024 2:40 PM EDT Office Visit [facility] [address] [place] [address] Toby Bell MD [address] [place] [address] 04/10/2024 10:30 AM EST Imaging Radiology, [address] [place] [address] Pending Results Name Type Priority Associated Diagnoses Date /Time TSH WITH FREE T4 IF INDICATED Lab STAT Malignant neoplasm of upper-inner quadrant of left breast in female, estrogen receptor negative (HCC) 11/28/2023 9:44 AM EDT Health Maintenance Due Date Last [...] this encounter Medical Devices Implanted Type Area Commutator Inspector Device Identifier Shelf Expiration Date Model / Serial / Lot Port Power Mri W8fr Cath - [id number] Implanted:Qty: 1 on 11/02/2023 by Mariah Abdul MD at OR [facility] Right: Chest CR BARD : PERIPHERAL VASCULAR 08/20/2024 [id number] / / [id number] documented as of this encounter Procedures Procedure Name Priority Date/Time Associated Diagnosis Comments DIFFERENTIAL, AUTOMATED STAT 11/28/2023 9:45 AM EDT Malignant neoplasm of upper-inner quadrant of left breast in female, estrogen receptor negative (HCC) COMPREHENSIVE METABOLIC PANEL STAT 11/28/2023 9:45 AM EDT Malignant neoplasm of upper-inner quadrant of left breast in female, estrogen receptor negative (HCC) CBC STAT 11/28/2023 9:45 AM EDT Malignant neoplasm of upper-inner quadrant of left breast in female, estrogen receptor negative (HCC) CBC STAT 11/28/2023 9:45 AM EDT Malignant neoplasm of upper-inner quadrant of left breast in female, estrogen receptor negative (HCC) DIFFERENTIAL, TECHNOLOGIST REVIEW Routine 11/28/2023 9:45 AM EDT Malignant neoplasm of upper-inner quadrant of left breast in female, estrogen receptor negative (HCC) documented in this encounter Results * (ABNORMAL) DIFFERENTIAL, TECHNOLOGIST REVIEW (11/28/2023 9:45 AM EDT) WBC 1.49(L) 4.00 - 10.80 K/uL 11/28/2023 10:26 AM EDT [facility] 56-02 Neutrophils % 76.0(H) 40.0 - 75.0 % 11/28/2023 10:26 AM EDT [facility] 56-02 Lymphocytes % 18.0 18.0 - 42.0 % 11/28/2023 10:26 AM EDT [facility] 56- Monocytes % 4.0 1.0 - 11.0 % 11/28/2023 10:26 AM EDT [facility] 56- Metamyelocytes % 2.0(H) <=0.0 % 11/28/19 10:26 AM EDT [facility] 56-02 Absolute Neutrophils 1.13(L) 1.80 - 7.70 K/uL 11/28/2023 10:26 AM EDT [facility] 56-02 Absolute Lymphocytes 0.27(L) 1.00 - 4.80 K/uL 11/28/2023 10:26 AM EDT [facility] 56-02 Absolute Monocytes 0.06 0.00 - 1.10 K/uL 11/28/2023 10:26 AM EDT [facility] 56-02 Absolute Metamyelocytes 0.03(H) <=0.00 K/uL 11/28/2023 10:26 AM EDT [facility] 56-02 nRBCs 11/28/2023 10:26 AM EDT [facility] 56- Blood Venous blood specimen / Unknown Venipuncture / Unknown 11/28/2023 9:45 AM EDT 11/28/2023 9:45 AM EDT Nas Palacios MD LAB BLOOD ORDERA BLES [facility] [address] [place] [address] * DIFFERENTIAL, AUTOMATED (11/28/2023 9:45 AM EDT) Blood Venous blood specimen / Unknown Venipuncture / Unknown 11/28/2023 9:45 AM EDT 11/28/2023 9:45 AM EDT Nas Palacios MD LAB BLOOD ORDERA BLES [address] [place] [phone] * (ABNORMAL) CBC (11/28/2023 9:45 AM EDT) WBC 1.49(L) 4.00 - 10.80 K/uL 11/28/2023 10:26 AM EDT [address] Comment: Consistent with previous results. RBC 4.32 3.85 - 5.15 M/uL 11/28/2023 10:26 AM EDT [address] HGB 13.5 12.0 - 15.3 g/dL 11/28/2023 10:26 AM EDT [address] HCT 41.0 36.0 - 45.2 % 11/28/2023 10:26 AM EDT [address] MCV 94.9 81.5 - 97.5 fL 11/28/2023 10:26 AM EDT [address] MCH 31.3 27.0 - 34.0 pg 11/28/2023 10:26 AM EDT [address] MCHC 32.9 32.0 - 36.0 g/dL 11/28/2023 10:26 AM EDT [address] RDW 14.3 11.5 - 15.5 % 11/28/2023 10:26 AM EDT [address] PLT 204 140 - 400 K/uL 11/28/2023 10:26 AM EDT [address] MPV 10.2 6.6 - 11.1 fL 11/28/2023 10:26 AM EDT [facility] 56 Blood Venous blood specimen / Unknown Venipuncture / Unknown 11/28/2023 9:45 AM EDT 11/28/2023 9:45 AM EDT Lovell Lul Palacios MD LAB BLOOD ORDERA BLES [address] [place] [address] * (ABNORMAL) COMPREHENSIVE METABOLIC PANEL (11/28/2023 9:45 AM EDT) BUN 14 6 - 20 mg/dL 11/28/2023 10:21 AM EDT [address] Creatinine 0.7 0.5 - 1.0 mg/dL 11/28/2023 10:21 AM EDT [address] Estimated Glomerular Filtration Rate 86 >=60 mL/min 11/28/2023 10:21 AM T [address] Comment:eGFR is calculated b ased on the CKD-EPI 2020 equation Sodium 134(L) 135 - 146 mmol/L 11/28/2023 10:21 AM T [address] Potassium 4.3 3.5 - 5.1 mmol/L 11/28/2023 10:21 AM T [address] Chloride 99 98 - 107 mmol/L 11/28/2023 10:21 AM EDT [address] CO2 23 22 - 32 mmol/L 11/28/2023 10:21 AM T [address] Anion Gap 12 7 - 15 mmol/L 11/28/2023 10:21 AM T [address] Glucose 197(H) 70 - 120 mg/dL 11/28/2023 10:21 AM EDT [address] Albumin 4.2 3.8 - 5.0 g/dL 11/28/2023 10:21 AM EDT [address] AST 31 10 - 35 U/L 11/28/2023 10:21 AM EDT [address] Alkaline Phosphatase 64 35 - 130 U/L 11/28/2023 10:21 AM T [address] Bilirubin, Total 0.4 <=1.2 mg/dL 11/28/2023 10:21 AM T [address] Calcium 9.1 8.4 - 10.2 mg/dL 11/28/2023 10:21 AM EDT [facility] 56 Protein 7.1 6.0 - 8.3 g/dL 11/28/2023 10:21 AM EDT [facility] 56- ALT 16 10 - 35 U/L 11/28/2023 10:21 AM EDT [facility] 56 Blood Venous blood specimen / Unknown Venipuncture / Unknown 11/28/2023 9:45 AM EDT 11/28/2023 9:45 AM EDT Nas Palacios MD LAB BLOOD ORDERA BLES [facility] [address] [place] [address] documented in this encounter Visit Diagnoses Diagnosis Malignant neoplasm [...] Advance Directives occurred with: Patient Care Teams Immigration Officer Relationship Specialty Start Date End Date Toby Bell MD [address] [place] [address] PCP - General Family Medicine 02/08/22 documented as of this encounter
--- OUTSIDE RECORDS SUMMARY | 2023-12-07 20:32 | External Medical Summary | Summary of Care ---
Author Name Unknown Organization [facility] Address [address] [place] [address] Phone [phone] Care Team Providers Care Firefighter Type One Name Role Phone Toby Bell MD Primary Care Provider +1- [phone] Reason for Visit * Reason Comments Chemotherapy [id number]/Taxol * Episode Based Medications (Routine) - Authorized Specialty Diagnoses / Procedures Referred By Ese medina Referred To Contact Diagnoses Encounter for antineoplastic chemotherapy Malignant neoplasm of upper-inner quadrant of left breast in female, estrogen receptor negative (HCC) Procedures NE PALONOSETRON HCL NE CARBOPLATIN INJECTION NE INJ PEMBROLIZUMAB NE PACLITAXEL INJECTION DOXO, EMEND, CYTOXAN-TO START 01/22/24, UDENYCA TO START 01/23/24 PER TREATMENT PLAN Nas Palacios MD [address] [place] [address] Anc Hem/Onc [address] [address] Referral ID Status Reason Start Date Expiration Date V isits Requested Visits Authorized [id number] Authorized 10/27/2023 01/16/2024 999 99 Encounter Details Date Type Department Care Team (Latest Contact Info) Description 11/14/2023 12:00 PM EDT Hem/Onc Treatment Hematology/Oncolog y Treatment, [address] [address] [place], Chair 10 Hem Onc Scenery [address] [place] [address] Encounter for antineoplastic chemotherapy*; Malignant neoplasm of [...] Description 12/06/2023 8:00 AM EDT Laboratory Laboratory [address] [place] [phone] Basilio Vasquez [address] [place] [address] 12/06/2023 8:30 AM EDT Office Visit Hematology/Oncology [address] [place] [phone] Alissa Roldan CRNP [address] [place] [address] 12/06/2023 9:00 AM EDT Hem/Onc Treatment Hematology/Oncology [address] [phone] Christina, Chair 10 Hem Onc [address] [place] [address] 12/12/2023 10:00 AM EDT Laboratory Laboratory [facility] [address] [place] [phone] Christina Lab [address] [place] [address] 12/12/2023 11:00 AM EDT Hem/Onc Treatment Hematology/Oncology [address] [phone] Park, Chair 6 Hem Onc Scenery [address] [place] [address] 02/03/2024 10:30 AM EDT Telemedicine Genetics HemOnc, [facility] [address] [place] [address] [place]abel [place], [place] [address] [place] [address] 03/16/2024 2:40 PM EDT Office Visit Family [facility] [address] [place] [address] Toby Bell MD [address] [place] [address] 04/10/2024 10:30 AM EST Imaging Radiology, [place] [address] [facility] [place] [address] Health Maintenance Due Date Last Done Comments [...] this encounter Medical Devices Implanted Type Area Occasional Caregiver Device Identifier Shelf Expiration Date Model / Serial / Lot Port Power Mri W8fr Cath - [id number] Implanted:Qty: 1 on 11/02/2023 by Mariah Abdul MD at OR [facility] Right: Chest CR BARD : PERIPHERAL VASCULAR 08/20/2024 [id number] / / [id number] documented as of this encounter Visit Diagnoses [...] at 1300, For 1 dose, Restricted per [facility] antiemetic guidelines Given 11/14/2023 12:33 PM EDT [...] Advance Directives occurred with: Patient Care Teams Firefighter Type One Relationship Specialty Start Date End Date Toby Bell MD [address] [facility] [place] [place] [address] PCP - General Family Medicine 02/08/22 documented as of this encounter
--- OUTSIDE RECORDS SUMMARY | 2023-12-07 20:32 | External Medical Summary | Summary of Care ---
Author Name Unknown Organization [facility] Address [address] [place] [address] Phone [phone] Care Team Providers Care Ged Preparation Teacher Name Role Phone Toby Bell MD Primary Care Provider +1- [phone] Reason for Visit * Reason Comments Chemotherapy [id number]/Taxol * Episode Based Medications (Routine) - Authorized [...] PER TREATMENT PLAN Nas Palacios MD [address] [place] [address] Anc Hem/Onc [address] [address] Referral ID Status Reason Start Date Expiration Date V isits Requested Visits Authorized [id number] Authorized 10/27/2023 01/16/2024 999 99 Encounter Details Date Type Department Care Team (Latest Contact Info) Description 11/14/2023 12:00 PM EDT Hem/Onc Treatment Hematology/Oncolog y Treatment, [address] [address] [place], Chair 10 Hem Onc Scenery [address] [place] [address] Encounter for antineoplastic chemotherapy*; Malignant neoplasm of [...] Description 12/06/2023 8:00 AM EDT Laboratory Laboratory [address] [place] [phone] Basilio Vasquez [address] [place] [address] 12/06/2023 8:30 AM EDT Office Visit Hematology/Oncology [address] [place] [phone] Alissa Roldan CRNP [address] [place] [address] 12/06/2023 9:00 AM EDT Hem/Onc Treatment Hematology/Oncology [address] [phone] Christina, Chair 10 Hem Onc [address] [place] [address] 12/12/2023 10:00 AM EDT Laboratory Laboratory [facility] [address] [place] [phone] Christina Lab [address] [place] [address] 12/12/2023 11:00 AM EDT Hem/Onc Treatment Hematology/Oncology [address] [phone] Park, Chair 6 Hem Onc Scenery [address] [place] [address] 02/03/2024 10:30 AM EDT Telemedicine Genetics HemOnc, [facility] [address] [place] [address] [place], [place] [address] [place] [address] 03/16/2024 2:40 PM EDT Office Visit Family [facility] [address] [place] [address] Toby Bell MD [address] [place] [address] 04/10/2024 10:30 AM EST Imaging Radiology, [place] [id number] [facility] [place] [address] Health Maintenance Due Date Last Done Comments [...] this encounter Medical Devices Implanted Type Area Press Pipe Inspector Device Identifier Shelf Expiration Date Model / Serial / Lot Port Power Mri W8fr Cath - [id number] Implanted:Qty: 1 on 11/02/2023 by Mariah Abdul MD at OR [facility] Right: Chest CR BARD : PERIPHERAL VASCULAR 08/20/2024 [id number] / / [id number] documented as of this encounter Visit Diagnoses [...] at 1300, For 1 dose, Restricted per [facility] [employer] [facility] antiemetic guidelines Given 11/14/2023 12:33 PM EDT [...] Advance Directives occurred with: Patient Care Teams Ged Preparation Teacher Relationship Specialty Start Date End Date Toby Bell MD [address] [facility] [place] [address] PCP - General Family Medicine 02/08/22 documented as of this encounter
--- OUTSIDE RECORDS SUMMARY | 2023-12-07 20:32 | External Medical Summary | Summary of Care ---
Author Name Unknown Organization [facility] Address [address] [place] [address] Phone [phone] Care Team Providers Care Septic Tank Setter Name Role Phone Toby Bell MD Primary Care Provider +1- [phone] Reason for Visit * Reason Comments Outpatient Testing Encounter Details Date Type Department Care Team (Late st Contact Info) Description 11/28/2023 10:10 AM EDT Laboratory Laboratory Sc[facility] [place] [address] [place] [address] [facility] Lab Scenery [address] [place] [address] Malignant neoplasm of upper-inner quadrant of left [...] 12/06/2023 8:00 AM EDT Laboratory Laboratory [facility] [place] [address] [place] [address] [phone] [place] [address] 12/06/2023 8:30 AM EDT Office Visit Hematology/Oncology [facility] Christina [place] [address] [phone] Alissa Roldan CRNP [address] [place], [place] [address] 12/06/2023 9:00 AM EDT Hem/Onc Treatment Hematology/Oncology Treatment, [place] [address] [place] [phone] Christina, Chair [address] [place] [place] [place] [address] 12/12/2023 10:00 AM EDT Laboratory Laboratory [facility] Christina [place] [address] [phone] [place] [address] 12/12/2023 11:00 AM EDT Hem/Onc Treatment Hematology/Oncology Treatment, [place] [address] [place] [phone] [place], Chair 6 Hem Onc Scenery [address] [place] [address] 02/03/2024 10:30 AM EDT Telemedicine Genetics [facility], [facility] [address] [place], [place] [id number] Mabel Ford, MS [address] [place], [place] [id number] 03/16/2024 2:40 PM EDT Office Visit [facility] [address] [place] [address] Toby Bell MD [address] [place] [address] 04/10/2024 10:30 AM EST Imaging Radiology, [address] [place] [address] Pending Results Name Type Priority Associated Diagnoses [...] this encounter Medical Devices Implanted Type Area Ditching Machine Engineer Device Identifier Shelf Expiration Date Model / Serial / Lot Port Power Mri W8fr Cath - [id number] Implanted:Qty: 1 on 11/02/2023 by Mariah Abdul MD at OR [facility] Right: Chest CR BARD : PERIPHERAL VASCULAR 08/20/2024 [id number] / / [id number] documented as of this encounter Procedures Procedure [...] - 10.80 K/uL 11/28/2023 10:26 AM EDT [facility] 56-02 Neutrophils % 76.0(H) 40.0 - 75.0 % 11/28/2023 10:26 AM EDT [facility] 56-02 Lymphocytes % 18.0 18.0 - 42.0 % 11/28/2023 10:26 AM EDT [facility] 56- Monocytes % 4.0 1.0 - 11.0 % 11/28/2023 10:26 AM EDT [facility] 56- Metamyelocytes % 2.0(H) <=0.0 % 11/28/19 10:26 AM EDT [facility] 56-02 Absolute Neutrophils 1.13(L) 1.80 - 7.70 K/uL 11/28/2023 10:26 AM EDT [facility] 56-02 Absolute Lymphocytes 0.27(L) 1.00 - 4.80 K/uL 11/28/2023 10:26 AM EDT [facility] 56-02 Absolute Monocytes 0.06 0.00 - 1.10 K/uL 11/28/2023 10:26 AM EDT [facility] 56-02 Absolute Metamyelocytes 0.03(H) <=0.00 K/uL 11/28/2023 10:26 AM EDT [facility] 56-02 nRBCs 11/28/2023 10:26 AM EDT [facility] 56- Blood Venous blood specimen / Unknown Venipuncture / Unknown 11/28/2023 9:45 AM EDT 11/28/2023 9:45 AM EDT Nas Palacios MD LAB BLOOD ORDERA BLES [facility] [address] [place] [address] * DIFFERENTIAL, AUTOMATED (11/28/2023 9:45 AM EDT) Blood Venous blood specimen / Unknown Venipuncture / Unknown 11/28/2023 9:45 AM EDT 11/28/2023 9:45 AM EDT Nas Palacios MD LAB BLOOD ORDERA BLES [address] [place] [id number] * (ABNORMAL) CBC (11/28/2023 9:45 AM EDT) WBC 1.49(L) 4.00 - 10.80 K/uL 11/28/2023 10:26 AM EDT [address] Comment: Consistent with previous results. RBC 4.32 3.85 - 5.15 M/uL 11/28/2023 10:26 AM EDT [address] HGB 13.5 12.0 - 15.3 g/dL 11/28/2023 10:26 AM EDT [address] HCT 41.0 36.0 - 45.2 % 11/28/2023 10:26 AM EDT [address] MCV 94.9 81.5 - 97.5 fL 11/28/2023 10:26 AM EDT [address] MCH 31.3 27.0 - 34.0 pg 11/28/2023 10:26 AM EDT [address] MCHC 32.9 32.0 - 36.0 g/dL 11/28/2023 10:26 AM EDT [address] RDW 14.3 11.5 - 15.5 % 11/28/2023 10:26 AM EDT [address] PLT 204 140 - 400 K/uL 11/28/2023 10:26 AM EDT [address] MPV 10.2 6.6 - 11.1 fL 11/28/2023 10:26 AM EDT [facility] 56 Blood Venous blood specimen / Unknown Venipuncture / Unknown 11/28/2023 9:45 AM EDT 11/28/2023 9:45 AM EDT Lovell Lul Palacios MD LAB BLOOD ORDERA BLES [address] [place] [address] * (ABNORMAL) COMPREHENSIVE METABOLIC PANEL (11/28/2023 9:45 AM EDT) BUN 14 6 - 20 mg/dL 11/28/2023 10:21 AM EDT [address] Creatinine 0.7 0.5 - 1.0 mg/dL 11/28/2023 10:21 AM EDT [address] Estimated Glomerular Filtration Rate 86 >=60 mL/min 11/28/2023 10:21 AM T [address] Comment:eGFR is calculated b ased on the CKD-EPI 2020 equation Sodium 134(L) 135 - 146 mmol/L 11/28/2023 10:21 AM T [address] Potassium 4.3 3.5 - 5.1 mmol/L 11/28/2023 10:21 AM T [address] Chloride 99 98 - 107 mmol/L 11/28/2023 10:21 AM EDT [address] CO2 23 22 - 32 mmol/L 11/28/2023 10:21 AM T [address] Anion Gap 12 7 - 15 mmol/L 11/28/2023 10:21 AM T [address] Glucose 197(H) 70 - 120 mg/dL 11/28/2023 10:21 AM EDT [address] Albumin 4.2 3.8 - 5.0 g/dL 11/28/2023 10:21 AM EDT [address] AST 31 10 - 35 U/L 11/28/2023 10:21 AM EDT [address] Alkaline Phosphatase 64 35 - 130 U/L 11/28/2023 10:21 AM T [address] Bilirubin, Total 0.4 <=1.2 mg/dL 11/28/2023 10:21 AM T [address] Calcium 9.1 8.4 - 10.2 mg/dL 11/28/2023 10:21 AM EDT [facility] 56 Protein 7.1 6.0 - 8.3 g/dL 11/28/2023 10:21 AM EDT [facility] 56- ALT 16 10 - 35 U/L 11/28/2023 10:21 AM EDT [facility] 56 Blood Venous blood specimen / Unknown Venipuncture / Unknown 11/28/2023 9:45 AM EDT 11/28/2023 9:45 AM EDT Nas Palacios MD LAB BLOOD ORDERA BLES [facility] [address] [place] [address] documented in this encounter Visit Diagnoses Diagnosis [...] Advance Directives occurred with: Patient Care Teams Septic Tank Setter Relationship Specialty Start Date End Date Toby Bell MD [address] [place] [address] PCP - General Family Medicine 02/08/22 documented as of this encounter
--- OUTSIDE RECORDS SUMMARY | 2023-12-07 20:32 | External Medical Summary | Summary of Care ---
Author Name Unknown Organization [facility] Address [address] [place] [address] Phone [phone] Care Team Providers Care A And P Mechanic Name Role Phone Toby Bell MD Primary Care Provider +1- [phone] Reason for Visit * Reason Comments Chemotherapy C2/D1 - Keytruda, Ta xol, Carboplatin * Episode Based Medications (Routine) - Authorized Specialty Diagnoses / Procedures Referred By Contac t Referred To Contact Diagnoses Encounter for antineoplastic chemotherapy Malignant neoplasm of upper-inner quadrant of left breast in female, estrogen receptor negative (HCC) Procedures MN PALONOSETRON HCL MN CARBOPLATIN INJECTION MN INJ PEMBROLIZUMAB MN PACLITAXEL INJECTION DOXO, EMEND, CYTOXAN-TO START 01/22/24, UDENYCA TO START 01/23/24 PER TREATMENT PLAN Nas Palacios MD [address] [place] [address] Anc Hem/Onc [address] [address] Referral ID Status Reason Start Date Expiration Date V isits Requested Visits Authorized [id number] Authorized 10/27/2023 01/16/2024 999 99 Encounter Details Date Type Department Care Team (Latest Contact Info) Description 11/28/2023 11:00 AM EDT Hem/Onc Treatment Hematology/Oncolog y Treatment, [address] [phone] Christina, Chair 10 Hem Onc Scenery [address] [place], [place] [address] Encounter for antineoplastic chemotherapy*; Malignant neoplasm of [...] Sign Reading Time Taken Comments Blood Pressure 178/81 11/28/2023 10:58 AM EDT Pulse 80 11/28/2023 10:58 AM EDT Temperature 35.8 C (96.5 F) 11/28/2023 1 0:58 AM EDT Respiratory Rate 16 11/28/2023 10:5 8 AM EDT Oxygen Saturation 93% 11/28/2023 10: 58 AM EDT Inhaled Oxygen Concentration - - Weight 61.1 kg (134 lb 12.8 oz) 024 10:58 AM EDT Height - - Body Mass Index 21.11 11/02/2023 11:54 AM EDT documented in this encounter Nursing Notes * Kenyatta Horne RN - 11/28/2023 4:34 PM EDT Goals: Patient will remain free from injury. Possible barriers to meeting goals: ambulating with IV pole Stability of the patient: Moderately stable - low risk of patient condition declining or worsening Summary regarding today's goals: Met: patient remained free of harm today Patient tolerated treatment well without any acute issues or problems. Patient left facility in stable condition and denied any further needs. * Kenyatta Horne RN - 11/28/2023 10:39 AM EDT Chair Port accessed. No issues. manager lean ANC with Dr. Palacios -- ANC today is 1.13. Okay to treat per Dr. Palacios. Chemotherapy/Immunotherapy agents: CARBOPLATIN, KEYTRUDA, and TAXOL Consent for chemotherapy drug treatment complete, dated, and signed? yes, date - 10/26/2023 Treatment lab parameters met? Yes Has treatment weight changed > than 10%? No Treatment preauthorized? Yes VITALS Filed Vitals: 11/28/23 1058 BP: 178/81 Pulse: 80 Resp: 16 Temp: 35.8 C (96.5 F) TempSrc: Tympanic SpO2: 93% Weight: 61.1 kg (134 lb 12.8 oz) Urine protein: N/A Patient education completed [...] side effects during treatment. PRE-TREATMENT ASSESSMENT: NEURO: numbness or tingling: some mild N/T in feet on occasion, not consistent CV/RESP: denies symptoms GI/: denies symptoms OTHER: denies any additional symptoms PAIN: 0 Safety and Risk for Injury Patient will remain free from injury. Ensure appropriate safety devices are available. Provide and maintain safe environment. documented in this encounter Plan of Treatment Upcoming Encounters Date Type Department Care Team (Late st Contact Info) Description 12/06/2023 8:00 AM EDT Laboratory Laboratory [facility] [place] [address] [facility] [place] [phone] Christina, [facility] [address] [facility] [place] [address] 12/06/2023 8:30 AM EDT Office Visit Hematology/Oncology [facility] [place] [address] [facility] [place] [phone] Alissa Roldan CRNP [address] [place] [address] 12/06/2023 9:00 AM EDT Hem/Onc Treatment Hematology/Oncology Treatment, [address] [place] [address] Christina, Chair 10 Hem Onc [place] [address] [place] [address] 12/12/2023 10:00 AM EDT Laboratory Laboratory [facility] Christina [place] [address] [place] [phone] Christina, Lab [facility] [address] [address] 12/12/2023 11:00 AM EDT [facility] [address] Christina, Chair 6 Hem Onc [facility] [address] [facility] [place] [address] 02/03/2024 10:30 AM EDT Telemedicine Genetics [facility], [facility] [address] [place] [address] Mabel Ford, MS [address] [place] [address] 03/16/2024 2:40 PM EDT Office Visit Family [facility] [address] [place] [address] Toby Bell MD [address] [place] [address] 04/10/2024 10:30 AM EST Imaging Radiology, [address] [address] Health Maintenance Due Date Last Done Comments [...] this encounter Medical Devices Implanted Type Area Garment Sewer Hand Device Identifier Shelf Expiration Date Model / Serial / Lot Port Power Mri W8fr Cath - [id number] Implanted:Qty: 1 on 11/02/2023 by Mariah Abdul MD at OR [facility] Right: Chest CR BARD : PERIPHERAL VASCULAR 08/20/2024 [id number] / / [id number] documented as of this encounter Visit Diagnoses [...] ONCE PRN Other, Hypersensitivity Reaction, Starting on Tue11/28/23 at 1122, Until Tue11/29/23 at 1121, For 24 hours EPINEPHrine 1 MG/ML inj 0.3 mg 0.3 mg, Intramuscular, ONCE PRN Other, Hypersensitivity Reaction or Anaphylaxis, Starting on Tue11/28/23 at 1122, Until Tue11/29/23 at 1121, For 24 hours hEParin 100 UNIT/ML Lock Flush inj 500 Units 500 Units (5 mL), IV Lock, PRN Other, IV Flush, Starting on Tue11/28/23 at 1122, Until Tue11/29/23 at 1121, For 24 hours, Do not flush if lock, PICC, or central line not in place; IV infusing or unable to flush. Given 11/28/2023 2:06 PM EDT 500 Units Hydrocortisone Sod Suc (PF) (Solu-Cortef) inj 100 mg 100 mg, IV Push, ONCE PRN Other, Hypersensitivity Reaction, Starting on Tue11/28/23 at 1122, Until Tue11/29/23 at 1121, For 24 hours LORAzepam (Ativan) tab 0.5 mg 0.5 mg, Oral, ONCE PRN Anxiety, Nausea, Starting on Tue11/28/23 at 1230, Until Discontinued NSS infusion Intravenous, at 50 mL/hr, PRN, Starting on Tue11/28/23 at 1230, Until Discontinued, Maintenance line Start Infusion 11/28/2023 11:34 AM EDT 50 mL/hr oxygen GAS Inhalation, OXYGEN, First dose on Tue11/28/23 at 1600, Until Discontinued, Device/Managed by: Low Flow Device, [...] Push, PRN Other, IV Flush, Starting on Tue11/28/23 at 1122, Until Tue11/29/23 at 1121, For 24 hours, Do not flush if lock, PICC, or central line not in place; IV infusing or unable to flush. Given 11/28/2023 2:06 PM EDT 10 mL Inactive Administered Medications - up to 3 most recent administrations Medication Order MAR Action Action Date Dose Rate Site CARBOplatin (Paraplatin) 127 mg in D5W 250 mL infusion 127 mg (rounded from 126.45 mg, Target AUC = 1.5), IV Piggyback, at 510 mL/hr Administer over 30 Minutes, PROTECT FROM LIGHT, ONCE, 1 dose, On Tue11/28/23 at 1330 Start Infusion 11/28/2023 1:31 PM EDT 127 mg 510 mL/hr dexAMETHasone (Decadron) tab 12 mg 12 mg, Oral, ONCE, On Tue11/28/23 at 1145, For 1 dose Given 11/28/2023 11:31 AM EDT 12 mg diphenhydrAMINE (Benadryl) inj 25 mg 25 mg, IV Push, ONCE, On Tue11/28/23 at 1145, For 1 dose Given 11/28/2023 11:32 AM EDT 25 mg Famotidine (Pepcid) tab 20 mg 20 mg, Oral, ONCE, On Tue11/28/23 at 1145, For 1 dose Given 11/28/2023 11:31 AM EDT 20 mg PACLitaxel (Taxol) 138 mg in NSS 250 mL infusion 138 mg (rounded from 137.6 mg = 80 mg/m2 1.72 m2 Treatment Plan BSA from Recorded weight), IV Piggyback, ONCE, 1 dose, On Tue11/28/23 at 1230, Administer over 60 Minutes, Administer through 0.22 micron low protein binding filter! Start Infusion 11/28/2023 12:22 PM EDT 138 mg 255 mL/hr Palonosetron (Aloxi) inj SOLN 0.25 mg 0.25 mg, IV Push, ONCE, On Tue11/28/23 at 1145, For 1 dose, Restricted per [facility] antiemetic guidelines Given 11/28/2023 11:32 AM EDT 0.25 mg Pembrolizumab (Keytruda) 200 mg in NSS 100 mL infusion 200 mg, IV Piggyback, ONCE, 1 dose, On Tue11/28/23 at 1300, Administer over 30 Minutes, Infuse through 0.2 micron filter. Start Infusion 11/28/2023 11:40 AM EDT 200 mg 226 mL/hr documented in this encounter Advance Directives * Full Code (Latest Code Status on File) Date Activated Date Inactivated Comments 11/02/2023 11:37 AM 11/02/2023 6:38 PM This order reflects the patients wishes and were consensually agreed upon. Question Answer Comments Discussion of Advance Directives occurred with: Patient Care Teams A And P Mechanic Relationship Specialty Start Date End Date Toby Bell MD [address] [facility] [place] [address] PCP - General Family Medicine 02/08/22 documented as of this encounter
--- OUTSIDE RECORDS SUMMARY | 2023-12-07 20:32 | External Medical Summary | Summary of Care ---
Author Name Unknown Organization [facility] Address [address] [place] [address] Phone [phone] Care Team Providers Care Bearing Machine Operator Name Role Phone Toby Bell MD Primary Care Provider +1- [phone] Reason for Visit * Reason Comments Outpatient Testing Encounter Details Date Type Department Care Team (Late st Contact Info) Description 11/28/2023 10:10 AM EDT Laboratory Laboratory [address] [address] [place] [address] [facility] Lab Scenery [address] [place] [address] Malignant neoplasm of upper-inner quadrant of left [...] Description 12/06/2023 8:00 AM EDT Laboratory Laboratory [facility] [place] [address] [phone] [address] [place] [address] [address] 12/06/2023 8:30 AM EDT Office Visit Hematology/Oncology [facility] [place] [address] [place] [address] [place] [phone] Alissa Roldan CRNP [address] [place] [address] 12/06/2023 9:00 AM EDT Hem/Onc Treatment Hematology/Oncology Treatment [place] [address] [place] [phone] Christina, Chair 10 Hem Onc [facility] [place] [address] 12/12/2023 10:00 AM EDT Laboratory Laboratory Bree Vasquez [place] [address] [phone] Basilio Vasquez [address] [facility] [place] [address] 12/12/2023 11:00 AM EDT Hem/Onc Treatment Hematology/Oncology Treatment, [place] [address] [place] [address] [place], Chair 6 Hem Onc Scenery [address] [place] [address] 02/03/2024 10:30 AM EDT Telemedicine Genetics HemOnc, [facility] [address] [place], [place] [phone] Mabel Ford, MS [address] [place] [address] 03/16/2024 2:40 PM EDT Office Visit [facility] [address] [place] [address] Toby Bell MD [address] [place] [address] 04/10/2024 10:30 AM EST Imaging Radiology, [address] [place], [place] [address] Health Maintenance Due Date Last Done Comments [...] this encounter Medical Devices Implanted Type Area Track Repair Supervisor Device Identifier Shelf Expiration Date Model / Serial / Lot Port Power Mri W8fr Cath - [id number] Implanted:Qty: 1 on 11/02/2023 by Mariah Abdul MD at OR [facility] Right: Chest CR BARD : PERIPHERAL VASCULAR 08/20/2024 [id number] / / [id number] documented as of this encounter Procedures Procedure [...] - 10.80 K/uL 11/28/2023 10:26 AM EDT [facility] [place] 56-02 Neutrophils % 76.0(H) 40.0 - 75.0 % 11/28/2023 10:26 AM EDT [facility] 56 Lymphocytes % 18.0 18.0 - 42.0 % 11/28/2023 10:26 AM EDT [facility] 56 Monocytes % 4.0 1.0 - 11.0 % 11/28/2023 10:26 AM EDT [facility] 56 Metamyelocytes % 2.0(H) <=0.0 % 11/28/19 10:26 AM EDT [facility] 56 Absolute Neutrophils 1.13(L) 1.80 - 7.70 K/uL 11/28/2023 10:26 AM EDT [facility] 56 Absolute Lymphocytes 0.27(L) 1.00 - 4.80 K/uL 11/28/2023 10:26 AM EDT [facility] 56 Absolute Monocytes 0.06 0.00 - 1.10 K/uL 11/28/2023 10:26 AM EDT [facility] 56 Absolute Metamyelocytes 0.03(H) <=0.00 K/uL 11/28/2023 10:26 AM EDT [facility] 56 nRBCs 11/28/2023 10:26 AM EDT [facility] 56 Blood Venous blood specimen / Unknown Venipuncture / Unknown 11/28/2023 9:45 AM EDT 11/28/2023 9:45 AM EDT Nas Palacios MD LAB BLOOD ORDERA BLES [facility] 56 [address] [place] [address] * DIFFERENTIAL, AUTOMATED (11/28/2023 9:45 AM EDT) Blood Venous blood specimen / Unknown Venipuncture / Unknown 11/28/2023 9:45 AM EDT 11/28/2023 9:45 AM EDT Nas Palacios MD LAB BLOOD ORDERA BLES [facility] 56 [address] [place] [address] * (ABNORMAL) CBC (11/28/2023 9:45 AM EDT) WBC 1.49(L) 4.00 - 10.80 K/uL 11/28/2023 10:26 AM EDT [facility] 56 Comment: Consistent with previous results. RBC 4.32 3.85 - 5.15 M/uL 11/28/2023 10:26 AM EDT [address] HGB 13.5 12.0 - 15.3 g/dL 11/28/2023 10:26 [address] EDT [address] HCT 41.0 36.0 - 45.2 % 11/28/2023 10:26 [address] EDT [address] MCV 94.9 81.5 - 97.5 fL 11/28/2023 10:26 AM EDT [address] MCH 31.3 27.0 - 34.0 pg 11/28/2023 10:26 AM EDT [address] MCHC 32.9 32.0 - 36.0 g/dL 11/28/2023 10:26 AM EDT [address] RDW 14.3 11.5 - 15.5 % 11/28/2023 10:26 AM EDT [facility] 56 PLT 204 140 - 400 K/uL 11/28/2023 10:26 AM EDT [address] MPV 10.2 6.6 - 11.1 fL 11/28/2023 10:26 AM EDT [facility] 56 Blood Venous blood specimen / Unknown Venipuncture / Unknown 11/28/2023 9:45 AM EDT 11/28/2023 9:45 AM EDT Nas Palacios MD LAB BLOOD ORDERA BLES [facility] 56 [address] [place] [address] * (ABNORMAL) COMPREHENSIVE METABOLIC PANEL (11/28/2023 9:45 AM EDT) BUN 14 6 - 20 mg/dL 11/28/2023 10:[address] Creatinine 0.7 0.5 - 1.0 mg/dL 11/28/2023 10:[address] [facility] 56 Estimated Glomerular Filtration Rate 86 >=60 mL/min 11/28/2023 10:[address] [facility] 56 Comment:eGFR is calculated b ased on the CKD-EPI 2020 equation Sodium 134(L) 135 - 146 mmol/L 11/28/2023 10:[address] Potassium 4.3 3.5 - 5.1 mmol/L 11/28/2023 10:[address] [facility] 56 Chloride 99 98 - 107 mmol/L 11/28/2023 10:[address] CO2 23 22 - 32 mmol/L 11/28/2023 10:[address] Anion Gap 12 7 - 15 mmol/L 11/28/2023 10:[address] Glucose 197(H) 70 - 120 mg/dL 11/28/2023 10:[address] Albumin 4.2 3.8 - 5.0 g/dL 11/28/2023 10:[address] [facility] 56 AST 31 10 - 35 U/L 11/28/2023 10:[address] [facility] 56 Alkaline Phosphatase 64 35 - 130 U/L 11/28/2023 10:[address] [facility] 56 Bilirubin, Total 0.4 <=1.2 mg/dL 11/28/2023 10:[address] [facility] 56 Calcium 9.1 8.4 - 10.2 mg/dL 11/28/2023 10:[address] [facility] 56 Protein 7.1 6.0 - 8.3 g/dL 11/28/2023 10:[address] [facility] 56 ALT 16 10 - 35 U/L 11/28/2023 10:[address] [facility] 56 Blood Venous blood specimen / Unknown Venipuncture / Unknown 11/28/2023 9:45 AM EDT 11/28/2023 9:45 AM EDT Nas Palacios MD LAB BLOOD ORDERA BLES [facility] [place] 56-[address] [place] [address] documented in this encounter Visit Diagnoses Diagnosis [...] Advance Directives occurred with: Patient Care Teams Bearing Machine Operator Relationship Specialty Start Date End Date Toby Bell MD [address] [place] [address] PCP - General Family Medicine 02/08/22 documented as of this encounter
--- OUTSIDE RECORDS SUMMARY | 2023-12-07 20:32 | External Medical Summary | Summary of Care ---
Author Name Unknown Organization [facility] Address [address] [place] [address] Phone [phone] Care Team Providers Care Manager Laundry Name Role Phone Toby Bell MD Primary Care Provider +1- [phone] Reason for Visit * Reason Comments Chemotherapy [id number]/Taxol * Episode Based Medications (Routine) - Authorized Specialty Diagnoses / Procedures Referred By Ese medina Referred To Contact Diagnoses Encounter for antineoplastic chemotherapy Malignant neoplasm of upper-inner quadrant of left breast in female, estrogen receptor negative (HCC) Procedures UT PALONOSETRON HCL UT CARBOPLATIN INJECTION UT INJ PEMBROLIZUMAB UT PACLITAXEL INJECTION DOXO, EMEND, CYTOXAN-TO START 01/22/24, UDENYCA TO START 01/23/24 PER TREATMENT PLAN Nas Palacios MD [address] [place] [address] Anc Hem/Onc [address] [address] Referral ID Status Reason Start Date Expiration Date V isits Requested Visits Authorized [id number] Authorized 10/27/2023 01/16/2024 999 99 Encounter Details Date Type Department Care Team (Latest Contact Info) Description 11/14/2023 12:00 PM EDT Hem/Onc Treatment Hematology/Oncolog y Treatment, [address] [address] Christina, Chair 10 Hem Onc Scenery [address] [place] [address] Encounter for antineoplastic chemotherapy*; Malignant neoplasm of [...] Description 12/06/2023 8:00 AM EDT Laboratory Laboratory [address] [place] [phone] Basilio Vasquez [address] [place] [address] 12/06/2023 8:30 AM EDT Office Visit Hematology/Oncology [address] [place] [phone] Alissa Roldan CRNP [address] [place] [address] 12/06/2023 9:00 AM EDT Hem/Onc Treatment Hematology/Oncology [address] [phone] Christina, Chair 10 Hem Onc [address] [place] [address] 12/12/2023 10:00 AM EDT Laboratory Laboratory [facility] [address] [place] [phone] Christina Lab [address] [place] [address] 12/12/2023 11:00 AM EDT Hem/Onc Treatment Hematology/Oncology [address] [phone] Park, Chair 6 Hem Onc Scenery [address] [place] [address] 02/03/2024 10:30 AM EDT Telemedicine Genetics HemOnc, [facility] [address] [place] [address] Mabel Ford, [place] [address] [place] [address] 03/16/2024 2:40 PM EDT Office Visit Family [facility] [address] [place] [address] Toby Bell MD [address] [place] [address] 04/10/2024 10:30 AM EST Imaging Radiology, [place] 079940 [facility] [place] [address] Health Maintenance Due Date Last Done Comments [...] this encounter Medical Devices Implanted Type Area Bindery Worker Device Identifier Shelf Expiration Date Model / Serial / Lot Port Power Mri W8fr Cath - [id number] Implanted:Qty: 1 on 11/02/2023 by Mariah Abdul MD at OR [facility] Right: Chest CR BARD : PERIPHERAL VASCULAR 08/20/2024 [id number] / / [id number] documented as of this encounter Visit Diagnoses [...] at 1300, For 1 dose, Restricted per [facility] antiemetic guidelines Given 11/14/2023 12:33 PM [...] Advance Directives occurred with: Patient Care Teams Manager Laundry Relationship Specialty Start Date End Date Toby Bell MD [address] [facility] [place] [address] PCP - General Family Medicine 02/08/22 documented as of this encounter
--- OUTSIDE RECORDS SUMMARY | 2023-12-07 20:32 | External Medical Summary | Summary of Care ---
Author Name Unknown Organization [facility] Address [address] [place] [address] Phone [phone] Care Team Providers Care Plug Cutting Machine Operator Name Role Phone Toby Bell MD Primary Care Provider +1- [phone] Reason for Visit * Reason Onset Date Comments FYI 11/29/2023 Dr. Palacios Encounter Details Date Type Department Care Team (Late st Contact Info) Description 11/29/2023 Telephone Hematology/Oncology [facility] [address] [place] [address] Services, Scheduling [address] [place] [address] FYI (Dr. Palacios ) Allergies Active Allergy [...] Description 12/06/2023 8:00 AM EDT Laboratory Laboratory [facility] [address] [place], [place] [phone] Christina, Lab Scenery [address] [place], [place] [address] 12/06/2023 8:30 AM EDT Office Visit Hematology/Oncology Scene Christina [place] [address] [place] [phone] Alissa Roldan, BO [address] [place] [address] 12/06/2023 9:00 AM EDT Hem/Onc Treatment Hematology/Oncology Treatment, [address], [place] [phone] Christina, Chair 10 Hem Onc Scenery [address] [place] [address] 12/12/2023 10:00 AM EDT Laboratory Laboratory [facility] Christina [place] [address] [place] [phone] Christina, Lab [facility] [address] [place], [place] [address] 12/12/2023 11:00 AM EDT Hem/Onc Treatment Hematology/Oncology Treatment, [address], [place] [phone] Christina, Chair 6 Hem Onc Scenery 200 [facility] [place], [place] [address] 02/03/2024 10:30 AM EDT Telemedicine Genetics HemOnc, [facility] [address] [place] [address] Mabel Ford, [place] [address] [place] [address] 03/16/2024 2:40 PM EDT Office Visit [address] [address] Toby Bell MD [address] [place] [address] 04/10/2024 10:30 AM EST Imaging Radiology, [address] [place], [place] [address] Health Maintenance Due Date Last Done Comments [...] this encounter Medical Devices Implanted Type Area Planning Supervisor Device Identifier Shelf Expiration Date Model / Serial / Lot Port Power Mri W8fr Cath - [id number] Implanted:Qty: 1 on 11/02/2023 by Mariah Abdul MD at OR [facility] Right: Chest CR BARD : PERIPHERAL VASCULAR 08/20/2024 [id number] / / [id number] documented as of this encounter Advance Directives * Full Code (Latest Code Status on File) Date Activated Date Inactivated Comments 11/02/2023 11:37 AM 11/02/2023 6:38 PM This order reflects the patients wishes and were consensually agreed upon. Question Answer Comments Discussion of Advance Directives occurred with: Patient Care Teams Plug Cutting Machine Operator Relationship Specialty Start Date End Date Toby Bell MD [address] [facility] [place] [address] PCP - General Family Medicine 02/08/22 documented as of this encounter
--- OUTSIDE RECORDS SUMMARY | 2023-12-07 20:32 | External Medical Summary | Summary of Care ---
Author Name Unknown Organization [facility] Address [address] [place] [address] Phone [phone] Care Team Providers Care Wet Pour Mixer Name Role Phone Toby Bell MD Primary Care Provider +1- [phone] Reason for Visit * Reason Comments Chemotherapy [id number]/Taxol * Episode Based Medications (Routine) - Authorized [...] 01/23/24 PER TREATMENT PLAN Nas Palacios MD [address] [place] [address] Anc Hem/Onc [address] [address] Referral ID Status Reason Start Date Expiration Date V isits Requested Visits Authorized [id number] Authorized 10/27/2023 01/16/2024 999 99 Encounter Details Date Type Department Care Team (Latest Contact Info) Description 11/14/2023 12:00 PM EDT Hem/Onc Treatment Hematology/Oncolog y Treatment, [address] [address] Christina, Chair 10 Hem Onc Scenery [address] [place] [address] Encounter for antineoplastic chemotherapy*; Malignant neoplasm of [...] Description 12/06/2023 8:00 AM EDT Laboratory Laboratory [address] [place] [phone] Basilio Vasquez [address] [place] [address] 12/06/2023 8:30 AM EDT Office Visit Hematology/Oncology [address] [place] [address] Alissa Roldan CRNP [address] [place] [address] 12/06/2023 9:00 AM EDT Hem/Onc Treatment Hematology/Oncology [address] [phone] Christina, Chair 10 Hem On[address] [place] [address] 12/12/2023 10:00 AM EDT Laboratory Laboratory [facility] [address] [place] [phone] Christina Lab [address] [place] [address] 12/12/2023 11:00 AM EDT Hem/Onc Treatment Hematology/Oncology [address] [phone] Park, Chair 6 Hem Onc Scenery [address] [place] [address] 02/03/2024 10:30 AM EDT Telemedicine Genetics HemOnc, [facility] [address] [place] [address] Mabel Ford, [place] [address] [place] [address] 03/16/2024 2:40 PM EDT Office Visit Family [facility] [address] [place] [address] Toby Bell MD [address] [place] [address] 04/10/2024 10:30 AM EST Imaging Radiology, [place] 093970 [facility] [place] [address] Health Maintenance Due Date Last Done Comments [...] this encounter Medical Devices Implanted Type Area Community Aide Device Identifier Shelf Expiration Date Model / Serial / Lot Port Power Mri W8fr Cath - [id number] Implanted:Qty: 1 on 11/02/2023 by Mariah Abdul MD at OR [facility] Right: Chest CR BARD : PERIPHERAL VASCULAR 08/20/2024 [id number] / / [id number] documented as of this encounter Visit Diagnoses [...] at 1300, For 1 dose, Restricted per [facility] antiemetic guidelines Given 11/14/2023 12:33 PM [...] Advance Directives occurred with: Patient Care Teams Wet Pour Mixer Relationship Specialty Start Date End Date Toby Bell MD [address] [facility] [place] [address] PCP - General Family Medicine 02/08/22 documented as of this encounter
--- OUTSIDE RECORDS SUMMARY | 2023-12-07 20:32 | External Medical Summary | Summary of Care ---
Author Name Unknown Organization [facility] Address [address] [place] [address] Phone [phone] Care Team Providers Care Manager Integrity Name Role Phone Toby Bell MD Primary Care Provider +1- [phone] Reason for Visit * Reason Comments Chemotherapy [id number]/Taxol * Episode Based Medications (Routine) - Authorized [...] 01/23/24 PER TREATMENT PLAN Nas Palacios MD [address] [place] [address] Anc Hem/Onc [address] [address] Referral ID Status Reason Start Date Expiration Date V isits Requested Visits Authorized [id number] Authorized 10/27/2023 01/16/2024 999 99 Encounter Details Date Type Department Care Team (Latest Contact Info) Description 11/14/2023 12:00 PM EDT Hem/Onc Treatment Hematology/Oncolog y Treatment, [address] [address] Christina, Chair 10 Hem Onc Scenery [address] [place] [address] Encounter for antineoplastic chemotherapy*; Malignant neoplasm of [...] Description 12/06/2023 8:00 AM EDT Laboratory Laboratory [address] [place] [phone] Basilio Vasquez [address] [place] [address] 12/06/2023 8:30 AM EDT Office Visit Hematology/Oncology [address] [place] [phone] Alissa Roldan CRNP [address] [place] [address] 12/06/2023 9:00 AM EDT Hem/Onc Treatment Hematology/Oncology [address] [phone] Christina, Chair 10 Hem On[address] [place] [address] 12/12/2023 10:00 AM EDT Laboratory Laboratory [facility] [address] [place] [phone] Christina Lab [address] [place] [address] 12/12/2023 11:00 AM EDT Hem/Onc Treatment Hematology/Oncology [address] [phone] Park, Chair 6 Hem Onc Scenery [address] [place] [address] 02/03/2024 10:30 AM EDT Telemedicine Genetics HemOnc, [facility] [address] [place] [address] Mabel Ford, [place] [address] [place] [address] 03/16/2024 2:40 PM EDT Office Visit Family [facility] [address] [place] [address] Toby Bell MD [address] [place] [address] 04/10/2024 10:30 AM EST Imaging Radiology, [place] [address] [facility] [place] [address] Health Maintenance Due Date Last Done Comments [...] this encounter Medical Devices Implanted Type Area Wood Carver Hand Device Identifier Shelf Expiration Date Model / Serial / Lot Port Power Mri W8fr Cath - [id number] Implanted:Qty: 1 on 11/02/2023 by Mariah Abdul MD at OR [facility] Right: Chest CR BARD : PERIPHERAL VASCULAR 08/20/2024 [id number] / / [id number] documented as of this encounter Visit Diagnoses [...] at 1300, For 1 dose, Restricted per [facility] antiemetic guidelines Given 11/14/2023 12:33 [...] Directives occurred with: Patient Care Teams Manager Integrity Relationship Specialty Start Date End Date Toby Bell MD [address] [facility] [place] [address] PCP - General Family Medicine 02/08/22 documented as of this encounter
--- OUTSIDE RECORDS SUMMARY | 2023-12-07 20:33 | External Medical Summary | Summary of Care ---
Author Name Unknown Organization [facility] Address [address] [place] [address] Phone [phone] Care Team Providers Care Adolescent Coordinator Name Role Phone Toby Bell MD Primary Care Provider +1- [phone] Encounter Details Date Type Department Care Team (Late st Contact Info) Description 11/22/2023 Orders Only Hematology/Oncology [facility] [place] [address] [place] [phone] Nas Palacios MD [address] [place] [address] Allergies Active Allergy Reactions Criticality Noted Date Comments Guaifenesin & Derivatives 10/11/2000 Daily--hives Lisinopril Edema face/lips/tongue High 08/05/2021 documented as of this encounter (statuses as of 11/22/2023) Medications Medication Sig Dispensed Refills Start Date [...] as of this encounter (statuses as of 11/22/2023) Active Problems Problem Noted Date Diagnosed Date [...] as of this encounter (statuses as of 11/22/2023) Immunizations Name Administration Dates Next Due COVID-19 [...] Description 11/28/2023 10:10 AM EDT Laboratory Laboratory [facility] [address] [place] [phone] Christina Lab [facility] [address] [place] [address] 11/28/2023 11:00 AM EDT [facility] 200 [facility] [place]ha [place] [phone] Christina, Chair 10 Hem Onc [facility] [address] [place] [address] 12/06/2023 8:00 AM EDT Laboratory Laboratory [facility] [place] [address] [place] [phone] Christina, Lab [facility] [address] [place] [address] 12/06/2023 8:30 AM EDT Office Visit Hematology/Oncology [facility] [place] [address] [place] [phone] Alissa Roldan CRNP [address] [place] [phone] 12/06/2023 9:00 AM EDT Hem[facility]c [facility] 200 [facility] [place]ha [place] [phone] Christina, Chair 10 Hem Onc Scenery [address] [place], [place] [address] 12/12/2023 10:00 AM EDT Laboratory Laboratory Scenery Christina [place] [address] [place] [phone] Christina, Lab Scenery [address] [facility] [place], [place] [address] 12/12/2023 11:00 AM EDT Hem/Onc Treatment Hematology/Oncology Treatment, [place] [address] [place], [place] [phone] Christina, Chair 6 Hem Onc Scenery [address] [place] [address] 02/03/2024 10:30 AM EDT Telemedicine Genetics HemOnc, [facility] [address] [place] [address] Mabel Ford, [place] [address] [place] [address] 03/16/2024 2:40 PM EDT Office Visit [facility] [address] [place] [phone] Toby Bell MD [address] [place] [address] 04/10/2024 10:30 AM EST Imaging Radiology, [place] 080700 [facility] [place], [place] [address] Health Maintenance Due Date Last Done Comments [...] this encounter Medical Devices Implanted Type Area Dispatcher Tow Truck Device Identifier Shelf Expiration Date Model / Serial / Lot Port Power Mri W8fr Cath - [id number] Implanted:Qty: 1 on 11/02/2023 by Mariah Abdul MD at OR [facility] Right: Chest CR BARD : PERIPHERAL VASCULAR 08/20/2024 [id number] / / [id number] documented as of this encounter Advance Directives * Full Code (Latest Code Status on File) Date Activated Date Inactivated Comments 11/02/2023 11:37 AM 11/02/2023 6:38 PM This order reflects the patients wishes and were consensually agreed upon. Question Answer Comments Discussion of Advance Directives occurred with: Patient Care Teams Adolescent Coordinator Relationship Specialty Start Date End Date Toby Bell MD [address] [facility] [place] [address] PCP - General Family Medicine 02/08/22 documented as of this encounter
--- OUTSIDE RECORDS SUMMARY | 2023-12-07 20:33 | External Medical Summary ---
Author Name Unknown Address Unknown Organization K09:[facility] [address] [place] [place] [address] Laboratory Report Ordering Provider Test Date Status LEANN ROWELL 11/28/2023 09:45:12 Final Observation Date Value Abnormality Reference (Units ) Status BUN 11/28/2023 09:45:12 14 6-20 (mg/dL) Final Creatinine 11/28/2023 09:45:12 0.7 0.5-1.0 (mg/dL) Final Glomerular filtration rate/1.73 sq M.predicted [Volume Rate/Area] in Serum, Plasma or Blood by Creatinine-based formula (CKD-EPI) 11/28/2023 09:45:12 86 >=60 (mL/min) Final eGFR is calculated based on the CKD-EPI 2020 equation Sodium 11/28/2023 09:45:12 134 Below low normal 135 -146 (mmol/L) Final Potassium 11/28/2023 09:45:12 4.3 3.5-5.1 (m mol/L) Final Cl 11/28/2023 09:45:12 99 98-107 (mm ol/L) Final CO2 11/28/2023 09:45:12 23 22-32 (mmo l/L) Final Anion gap 11/28/2023 09:45:12 12 7-15 (mmol /L) Final Glucose 11/28/2023 09:45:12 197 Above high normal 70 -120 (mg/dL) Final Albumin 11/28/2023 09:45:12 4.2 3.8-5.0 (g /dL) Final AST (Aspartate aminotransferase) 11/28/2023 09:45:12 31 10-35 (U/L) Fin al Alk Phos 11/28/2023 09:45:12 64 35-130 (U/ L) Final Bilirubin, Total 11/28/2023 09:45:12 0.4 <=1 .2 (mg/dL) Final Calcium 11/28/2023 09:45:12 9.1 8.4-10.2 ( mg/dL) Final Protein 11/28/2023 09:45:12 7.1 6.0-8.3 (g /dL) Final ALT (Alanine aminotransferase) 11/28/2023 09:45:12 16 10-35 (U/L) Octavio lo Performing Location [facility] [address] [place] [address]
--- OUTSIDE RECORDS SUMMARY | 2023-12-07 20:33 | External Medical Summary | Summary of Care ---
Author Name Unknown Organization [facility] Address [address] [place] [address] Phone [phone] Care Team Providers Care Press Reader Name Role Phone Toby Bell MD Primary Care Provider +1- [phone] Reason for Visit * Reason Comments Chemotherapy [id number]/Taxol * Episode Based Medications (Routine) - Authorized [...] 01/23/24 PER TREATMENT PLAN Nas Palacios MD [address] [place] [address] Anc Hem/Onc [address] [address] Referral ID Status Reason Start Date Expiration Date V isits Requested Visits Authorized [id number] Authorized 10/27/2023 01/16/2024 999 99 Encounter Details Date Type Department Care Team (Latest Contact Info) Description 11/14/2023 12:00 PM EDT Hem/Onc Treatment Hematology/Oncolog y Treatment, [address] [address] Christina, Chair 10 Hem Onc Scenery [address] [place] [address] Encounter for antineoplastic chemotherapy*; Malignant neoplasm of [...] Description 11/28/2023 10:10 AM EDT Laboratory Laboratory [facility] 200 [facility] [place] [phone] Christian, Lab [facility] 200 [facility] [place] [address] 11/28/2023 11:00 AM EDT Hem/Onc Treatment Hematology/Oncology [address] [phone] Christina, Chair [address] [place] [address] 12/06/2023 8:00 AM EDT Laboratory Laboratory [facility] [place] [address] [place] [phone] Christina, Lab [facility] 200 [facility] [place] [address] 12/06/2023 8:30 AM EDT Office Visit Hematology/Oncology [facility] [place] [address] [place] [phone] Alissa Roldan CRNP 400 [facility] [place] [id number] 12/06/2023 9:00 AM EDT Hem/Onc Treatment Hematology/Oncology [address] [phone] Christina, Chair 10 Hem Onc Scen[address] [place], [place] [address] 12/12/2023 10:00 AM EDT Laboratory Laboratory Scenery [place] [address] [place]írez [phone] Christina, Lab Scenery [address] [facility] ADRIANO, [place] [address] 12/12/2023 11:00 AM EDT Hem/Onc Treatment Hematology/Oncology Treatment, [place] [address] [place], [place] [phone] Christina, Chair 6 Hem Onc Scen[address] [place], [place] [address] 02/03/2024 10:30 AM EDT Telemedicine Genetics HemOnc, [facility] [address] [place] [address] [place], [place] [address] [place] [address] 03/16/2024 2:40 PM EDT Office Visit [facility] [address] [place] [phone] Toby Bell MD [address] [place] [address] 04/10/2024 10:30 AM EST Imaging Radiology, [place] 702750 [facility] [place], [place] [address] Health Maintenance Due Date Last Done Comments [...] this encounter Medical Devices Implanted Type Area School Traffic Supervisor Device Identifier Shelf Expiration Date Model / Serial / Lot Port Power Mri W8fr Cath - [id number] Implanted:Qty: 1 on 11/02/2023 by Mariah Abdul MD at OR [facility] Right: Chest CR BARD : PERIPHERAL VASCULAR 08/20/2024 [id number] / / [id number] documented as of this encounter Visit Diagnoses [...] at 1300, For 1 dose, Restricted per S antiemetic guidelines Given 11/14/2023 12:33 PM EDT [...] Advance Directives occurred with: Patient Care Teams Press Reader Relationship Specialty Start Date End Date Toby Bell MD [address] [facility] [place] [address] PCP - General Family Medicine 02/08/22 documented as of this encounter
--- OUTSIDE RECORDS SUMMARY | 2023-12-07 20:33 | External Medical Summary ---
Author Name Unknown Address Unknown Organization K09:[facility] [place] [address] Laboratory Report Ordering Provider Test Date Status LEANN ROWELL 11/28/2023 09:45:12 Final Observation Date Value Abnormality Reference (Units ) Status WBC, Total 11/28/2023 09:45:12 1.49 Below low normal 4. 00-10.80 (K/uL) Final Consistent with previous res ults.
null RBC 11/28/2023 09:45:12 4.32 3.85-5.15 (M/uL) Final Hemoglobin 11/28/2023 09:45:12 13.5 12.0-15.3 (g/dL) Final HCT 11/28/2023 09:45:12 41.0 36.0-45.2 (%) Final MCV 11/28/2023 09:45:12 94.9 81.5-97.5 (fL) Final MCH 11/28/2023 09:45:12 31.3 27.0-34.0 (pg) Final MCHC 11/28/2023 09:45:12 32.9 32.0-36.0 (g/dL) Final RDW 11/28/2023 09:45:12 14.3 11.5-15.5 (%) Final Platelets 11/28/2023 09:45:12 204 140-400 (K /uL) Final MPV 11/28/2023 09:45:12 10.2 6.6-11.1 ( fL) Final Performing Location [facility] [place] [address]
--- OUTSIDE RECORDS SUMMARY | 2023-12-07 20:33 | External Medical Summary ---
Author Name Unknown Address Unknown Organization K09:[facility] [address] Laboratory Report Ordering Provider Test Date Status LEANN ROWELL 11/14/2023 11:03:00 Final Observation Date Value Abnormality Reference (Units ) Status WBC, Total 11/14/2023 11:03:00 3.22 Below low normal 4. 00-10.80 (K/uL) Final RBC 11/14/2023 11:03:00 4.63 3.85-5.15 (M/uL) Final Hemoglobin 11/14/2023 11:03:00 14.5 12.0-15.3 (g/dL) Final HCT 11/14/2023 11:03:00 44.6 36.0-45.2 (%) Final MCV 11/14/2023 11:03:00 96.3 81.5-97.5 (fL) Final MCH 11/14/2023 11:03:00 31.3 27.0-34.0 (pg) Final MCHC 11/14/2023 11:03:00 32.5 32.0-36.0 (g/dL) Final RDW 11/14/2023 11:03:00 13.6 11.5-15.5 (%) Final Platelets 11/14/2023 11:03:00 189 140-400 (K /uL) Final MPV 11/14/2023 11:03:00 10.9 6.6-11.1 ( fL) Final Performing Location [facility] [place] [address]
--- OUTSIDE RECORDS SUMMARY | 2023-12-07 20:33 | External Medical Summary ---
Author Name Unknown Address Unknown Organization K01:[facility] - [address] [place] [address] Laboratory Report Ordering Provider Test Date Status LEANN ROWELL 11/14/2023 11:03:00 Final Observation Date Value Abnormality Reference (Units ) Status TSH 11/14/2023 11:03:00 1.02 0.27-4.20 (uIU/mL) Final Performing Location [facility] - [address] [place] [address]
--- OUTSIDE RECORDS SUMMARY | 2023-12-07 20:33 | External Medical Summary | Summary of Care ---
Author Name Unknown Organization [facility] Address [address] [place] [address] Phone [phone] Care Team Providers Care Shredded Filler Hopper Feeder Name Role Phone Toby Bell MD Primary Care Provider +1- [phone] Reason for Visit * Reason Comments Chemotherapy C1/D15 - Taxol/Carbo platin * Episode Based Medications (Routine) - Authorized Specialty Diagnoses / Procedures Referred By Contkathleen t Referred To Contact Diagnoses Encounter for antineoplastic chemotherapy Malignant neoplasm of upper-inner quadrant of left breast in female, estrogen receptor negative (HCC) Procedures VA PALONOSETRON HCL VA CARBOPLATIN INJECTION VA INJ PEMBROLIZUMAB VA PACLITAXEL INJECTION DOXO, EMEND, CYTOXAN-TO START 01/22/24, UDENYCA TO START 01/23/24 PER TREATMENT PLAN Nas Palacios MD [address] [place] [address] [place] [address] Anc Hem/Onc [address] [address] Referral ID Status Reason Start Date Expiration Date V isits Requested Visits Authorized [id number] Authorized 10/27/2023 01/16/2024 999 99 Encounter Details Date Type Department Care Team (Latest Contact Info) Description 11/21/2023 11:00 AM EDT Hem/Onc Treatment Hematology/Oncolog y [address], [address] [address] [place], Chair 8 Hem Onc Scen[address] [place], [place] [address] Encounter for antineoplastic chemotherapy*; Malignant neoplasm of upper-inner quadrant of left breast in female, estrogen receptor negative (HCC) Allergies Active Allergy Reactions Criticality Noted Date Comments Guaifenesin & Derivatives 10/11/2000 Daily--hives Lisinopril Edema face/lips/tongue High 08/05/2021 documented as of this encounter (statuses as of 11/21/2023) Medications Medication Sig Dispensed Refills Start Date [...] as of this encounter (statuses as of 11/21/2023) Active Problems Problem Noted Date Diagnosed Date [...] as of this encounter (statuses as of 11/21/2023) Immunizations Name Administration Dates Next Due COVID-19 [...] Sign Reading Time Taken Comments Blood Pressure 139/65 11/21/2023 11:00 AM EDT Pulse - - Temperature 36.8 C (98.3 F) 11/21/2023 11:00 AM E DT Respiratory Rate 16 11/21/2023 11:00 AM EDT Oxygen Saturation 93% 11/21/2023 11:00 AM EDT Inhaled Oxygen Concentration - - Weight 62.3 kg (137 lb 6.4 oz) 11/21/2023 11:00 AM EDT Height - - Body Mass Index 21.52 11/02/2023 11:54 AM EDT documented in this encounter Nursing Notes * Kenyatta Horne RN - 11/21/2023 2:42 PM EDT Goals: Patient will remain free [...] further needs. * Kenyatta Horne RN - 11/21/2023 11:38 AM EDT Chair 7. Port accessed. ANC 1.05 -- RN reviewed with Dr. Suzanne agosto to tx today with ANC 1.05. Patient was educated about neutropenic precautions, patient and grandson communicated understanding. Chemotherapy/Immunotherapy agents: CARBOPLATIN and TAXOL Consent for chemotherapy drug treatment complete, dated, and signed? yes, date - 10/26/2023 Treatment lab parameters met? Yes Has treatment weight changed > than 10%? No Treatment preauthorized? Yes VITALS Filed Vitals: 11/21/23 1100 BP: 139/65 Resp: 16 Temp: 36.8 C (98.3 F) TempSrc: Tympanic SpO2: 93% Weight: 62.3 kg (137 lb 6.4 oz) [...] denies symptoms CV/RESP: denies symptoms GI/: constipation: This has been main concern for patient. She has gone a couple different days since her last treatment now that she has been taking daily stool softener and Miralax if she has not gone for 2-3 days. This has been helping patient. She did say before starting on chemo, she had problems with constipation as well, going maybe on 1-2 times per week. OTHER: denies any additional symptoms PAIN: 0 Safety and Risk for Injury Patient will remain free from injury. Ensure appropriate safety devices are available. Provide and maintain safe environment. documented in this encounter Plan of Treatment Upcoming Encounters Date Type Department Care Team (Late st Contact Info) Description 11/28/2023 10:10 AM EDT Laboratory Laboratory [facility] [place] [address] [place] [phone] Christina Lab [place] [address] [address] 11/28/2023 11:00 AM EDT Hem/Onc Treatment Hematology/Oncology Treatment, [place] [address] [place] [phone] Chirstina, Chair 10 Hem Onc [place] [address] [address] [place] [address] 12/06/2023 8:00 AM EDT Laboratory Laboratory [facility] Christina [place] [address] [place] [phone] Christina, Lab [facility] [address] [facility] [place] [address] 12/06/2023 8:30 AM EDT Office Visit Hematology/Oncology [facility] Christina [place] [address] [place] [phone] Alissa [facility]oldan [facility] [address] [facility] [address] 12/06/2023 9:00 AM EDT Hem/Onc Treatment Hematology/Oncology Treatment, [place] 200 [facility] [place], [place] [phone] Christina, Chair 10 Hem Onc Scenery 200 [facility] [place] [address] 12/12/2023 10:00 AM EDT Laboratory Laboratory [facility] [place] [address] [place] [phone] Christina, Lab Scenery 200 [facility] [place] [address] 12/12/2023 11:00 AM EDT Hem/Onc Treatment Hematology/Oncology Treatment, [place] 200 [facility] [place], [place] [phone] Christina, Chair 6 Hem Onc Scenery 200 [facility] [place] [address] 02/03/2024 10:30 AM EDT Telemedicine Genetics HemOnc, [facility] [address] [place] [address] Mabel Ford, [place] [address] [place] [address] 03/16/2024 2:40 PM EDT Office Visit [facility] [address] [place] [address] Toby Bell MD [address] [place] [address] 04/10/2024 10:30 AM EST Imaging Radiology, [place] [address] [facility] [place], [place] [address] Health Maintenance Due Date Last Done Comments [...] Pneumococcal Vaccine: 65+ Years Completed 03/15/2016, 09/27/2006 GARDASIL-HPV IMMUNIZATION SERIES Aged Out No longer eligible based on patient's age to complete this topic Hepatitis B Aged Out No longer eligi ble based on patient's age to complete this topic MENINGOCOCCAL (MENACTRA/MENVEO) Aged Out No longer eligible based on patient's age to complete this topic Zoster Vaccines Discontinued documented as of this encounter Medical Devices Implanted Type Area Computer Compositor Device Identifier Shelf Expiration Date Model / Serial / Lot Port Power Mri W8fr Cath - [id number] Implanted:Qty: 1 on 11/02/2023 by Mariah Abdul MD at OR [facility] Right: Chest CR BARD : PERIPHERAL VASCULAR 08/20/2024 [id number] / / [id number] documented as of this encounter Visit Diagnoses [...] ONCE PRN Other, Hypersensitivity Reaction, Starting on Tue11/21/23 at 1138, Until Tue11/22/23 at 1137, For 24 hours EPINEPHrine 1 MG/ML inj 0.3 mg 0.3 mg, Intramuscular, ONCE PRN Other, Hypersensitivity Reaction or Anaphylaxis, Starting on Tue11/21/23 at 1138, Until Tue11/22/23 at 1137, For 24 hours hEParin 100 UNIT/ML Lock Flush inj 500 Units 500 Units (5 mL), IV Lock, PRN Other, IV Flush, Starting on Tue11/21/23 at 1138, Until Tue11/22/23 at 1137, For 24 hours, Do not flush if lock, PICC, or central line not in place; IV infusing or unable to flush. Given 11/21/2023 2:35 PM EDT 500 Units Hydrocortisone Sod Suc (PF) (Solu-Cortef) inj 100 mg 100 mg, IV Push, ONCE PRN Other, Hypersensitivity Reaction, Starting on Tue11/21/23 at 1138, Until Tue11/22/23 at 1137, For 24 hours LORAzepam (Ativan) tab 0.5 mg 0.5 mg, Oral, ONCE PRN Anxiety, Nausea, Starting on Tue11/21/23 at 1245, Until Discontinued NSS infusion Intravenous, at 50 mL/hr, PRN, Starting on Tue11/21/23 at 1245, Until Discontinued, Maintenance line Start Infusion 11/21/2023 12:14 PM EDT 50 mL/hr oxygen GAS Inhalation, OXYGEN, First dose on Tue11/21/23 at 1600, Until Discontinued, Device/Managed by: Low [...] Push, PRN Other, IV Flush, Starting on Tue11/21/23 at 1138, Until Tue11/22/23 at 1137, For 24 hours, Do not flush if lock, PICC, or central line not in place; IV infusing or unable to flush. Given 11/21/2023 2:35 PM EDT 10 mL Inactive Administered Medications - up to 3 most recent administrations Medication Order MAR Action Action Date Dose Rate Site CARBOplatin (Paraplatin) 127 mg in D5W 250 mL infusion 127 mg (rounded from 126.45 mg, Target AUC = 1.5), IV Piggyback, at 510 mL/hr Administer over 30 Minutes, PROTECT FROM LIGHT, ONCE, 1 dose, On Tue11/21/23 at 1400 Start Infusion 11/21/2023 2:01 PM EDT 127 mg 510 mL/hr dexAMETHasone (Decadron) tab 12 mg 12 mg, Oral, ONCE, On Tue11/21/23 at 1215, For 1 dose Given 11/21/2023 12:12 PM EDT 12 mg diphenhydrAMINE (Benadryl) inj 25 mg 25 mg, IV Push, ONCE, On Tue11/21/23 at 1215, For 1 dose Given 11/21/2023 12:12 PM EDT 25 mg Famotidine (Pepcid) tab 20 mg 20 mg, Oral, ONCE, On Tue11/21/23 at 1215, For 1 dose Given 11/21/2023 12:12 PM EDT 20 mg PACLitaxel (Taxol) 138 mg in NSS 250 mL infusion 138 mg (rounded from 137.6 mg = 80 mg/m2 1.72 m2 Treatment Plan BSA from Recorded weight), IV Piggyback, ONCE, 1 dose, On Tue11/21/23 at 1345, Administer over 60 Minutes, Administer through 0.22 micron low protein binding filter! Start Infusion 11/21/2023 12:56 PM EDT 138 mg 255 mL/hr Palonosetron (Aloxi) inj SOLN 0.25 mg 0.25 mg, IV Push, ONCE, On Tue11/21/23 at 1215, For 1 dose, Restricted per S antiemetic guidelines Given 11/21/2023 12:12 PM EDT 0.25 mg documented in this encounter Advance Directives * Full Code (Latest Code Status on File) Date Activated Date Inactivated Comments 11/02/2023 11:37 AM 11/02/2023 6:38 PM This order reflects the patients wishes and were consensually agreed upon. Question Answer Comments Discussion of Advance Directives occurred with: Patient Care Teams Shredded Filler Hopper Feeder Relationship Specialty Start Date End Date Toby Bell MD [address] [place] [address] PCP - General Family Medicine 02/08/22 documented as of this encounter
--- OUTSIDE RECORDS SUMMARY | 2023-12-07 20:33 | External Medical Summary ---
Author Name Unknown Address Unknown Organization [id number]:LABORATORY [address] [facility] [place] [address] Laboratory Report Ordering Provider Test Date Status LEANN ROWELL 11/28/2023 09:45:12 Final Observation Date Value Abnormality Reference (Units ) Status SYNC LEUKOCYTES IN BLOOD BY AUTOMATED COUNT 11/28/2023 09:45:12 1.49 Below low normal 4.00-10.80 (K/uL) Final Neutrophils/100 leukocytes in Blood by Manual count 11/28/2023 09:45:12 76.0 Above high normal 40.0-75.0 (%) Final Lymphocytes/100 leukocytes in Blood by Manual count 11/28/2023 09:45:12 18.0 18.0-42.0 (%) Final Monocytes/100 leukocytes in Blood by Manual count 11/28/2023 09:45:12 4.0 1.0-11.0 (%) Final Metamyelocytes/100 leukocytes in Blood by Manual count 11/28/2023 09:45:12 2.0 Above high normal <=0.0 (%) Final Neutrophils [#/volume] in Blood by Manual count 11/28/2023 09:45:12 1.13 Below low normal 1.80-7.70 (K/uL) Final Lymphocytes [#/volume] in Blood by Manual count 11/28/2023 09:45:12 0.27 Below low normal 1.00-4.80 (K/uL) Final Monocytes [#/volume] in Blood by Manual count 11/28/2023 09:45:12 0.06 0.00-1.10 (K/uL) Final Metamyelocytes [#/volume] in Blood by Manual count 11/28/2023 09:45:12 0.03 Above high normal <=0.00 (K/uL) Final Nucleated erythrocytes/100 leukocytes [Ratio] in Blood by Automated count 11/28/2023 09:45:12 Final Performing Location [facility] [place] [address] [place] [address]
--- OUTSIDE RECORDS SUMMARY | 2023-12-07 20:33 | External Medical Summary ---
Author Name Unknown Address Unknown Organization K09:[facility] [place] [address] Laboratory Report Ordering Provider Test Date Status LEANN ROWELL 11/21/2023 10:12:17 Final Observation Date Value Abnormality Reference (Units ) Status Nucleated erythrocytes/100 leukocytes [Ratio] in Blood by Automated count 11/21/2023 10:12:17 Final Performing Location [facility] [place] [address]
--- OUTSIDE RECORDS SUMMARY | 2023-12-07 20:33 | External Medical Summary ---
Author Name Unknown Address Unknown Organization K09:[facility] [place] [address] Laboratory Report Ordering Provider Test Date Status LEANN ROWELL 11/14/2023 11:03:00 Final Observation Date Value Abnormality Reference (Units ) Status Nucleated erythrocytes/100 leukocytes [Ratio] in Blood by Automated count 11/14/2023 11:03:00 Final Performing Location [facility] [place] [address]
--- OUTSIDE RECORDS SUMMARY | 2023-12-07 20:33 | External Medical Summary | Summary of Care ---
Author Name Unknown Organization [facility] Address [address] [place] [address] Phone [phone] Care Team Providers Care Transaction Manager Name Role Phone Toby Bell MD Primary Care Provider +1- [phone] Reason for Visit * Reason Comments Chemotherapy [id number]/Taxol * Episode Based Medications (Routine) - Authorized Specialty Diagnoses / Procedures Referred By Ese medina Referred To Contact Diagnoses Encounter for antineoplastic chemotherapy Malignant neoplasm of upper-inner quadrant of left breast in female, estrogen receptor negative (HCC) Procedures RI PALONOSETRON HCL RI CARBOPLATIN INJECTION RI INJ PEMBROLIZUMAB RI PACLITAXEL INJECTION DOXO, EMEND, CYTOXAN-TO START 01/22/24, UDENYCA TO START 01/23/24 PER TREATMENT PLAN Nas Palacios MD [address] [place] [address] Anc Hem/Onc [address] [address] Referral ID Status Reason Start Date Expiration Date V isits Requested Visits Authorized [id number] Authorized 10/27/2023 01/16/2024 999 99 Encounter Details Date Type Department Care Team (Latest Contact Info) Description 11/14/2023 12:00 PM EDT Hem/Onc Treatment Hematology/Oncolog y Treatment, [address] [phone] Christina, Chair 10 Hem Onc Scenery [address] [place] [address] Encounter for antineoplastic chemotherapy*; Malignant neoplasm of [...] Description 11/28/2023 10:10 AM EDT Laboratory Laboratory [facility] 200 [facility] [place] [phone] Christina, Lab [facility] 200 [facility] [place] [address] 11/28/2023 11:00 AM EDT Hem/Onc Treatment Hematology/Oncology [address] [phone] [place], Chair 10 Hem On[address] [place] [address] 12/06/2023 8:00 AM EDT Laboratory Laboratory [facility] [place] [address] [place] [phone] Christina, Lab [facility] 200 [facility] [place] [address] 12/06/2023 8:30 AM EDT Office Visit Hematology/Oncology [facility] [place] [address] [place] [phone] Alissa Roldan CRNP 400 [facility] [place] [id number] 12/06/2023 9:00 AM EDT Hem/Onc Treatment Hematology/Oncology [address] [phone] Christina, Chair 10 Hem Onc Scenery [address] [place], [place] [address] 12/12/2023 10:00 AM EDT Laboratory Laboratory Scenery [place] [address] [place] [phone] Christina, Lab Scenery [address] [facility] [place], [place] [address] 12/12/2023 11:00 AM EDT Hem/Onc Treatment Hematology/Oncology Treatment, [place] [address] [place], [place] [phone] Christina, Chair 6 Hem Onc Sc[address] [place], [place] [address] 02/03/2024 10:30 AM EDT Telemedicine Genetics HemOnc, [facility] [address] [place] [address] Mabel Ford, [place] [address] [place] [address] 03/16/2024 2:40 PM EDT Office Visit [facility] [address] [place] [phone] Toby Bell MD [address] [place] [address] 04/10/2024 10:30 AM EST Imaging Radiology, [place] [address] [facility] [place], [place] [address] Health Maintenance Due Date Last Done Comments [...] this encounter Medical Devices Implanted Type Area Coagulating Bath Mixer Device Identifier Shelf Expiration Date Model / Serial / Lot Port Power Mri W8fr Cath - [id number] Implanted:Qty: 1 on 11/02/2023 by Mariah Abdul MD at OR [facility] Right: Chest CR BARD : PERIPHERAL VASCULAR 08/20/2024 [id number] / / [id number] documented as of this encounter Visit Diagnoses [...] Advance Directives occurred with: Patient Care Teams Transaction Manager Relationship Specialty Start Date End Date Toby Bell MD [address] [facility] [place] [address] PCP - General Family Medicine 02/08/22 documented as of this encounter
--- OUTSIDE RECORDS SUMMARY | 2023-12-07 20:33 | External Medical Summary ---
Author Name Unknown Address Unknown Organization K09:[facility] [place] [address] Laboratory Report Ordering Provider Test Date Status LEANN ROWELL 11/21/2023 10:12:17 Final Observation Date Value Abnormality Reference (Units ) Status WBC, Total 11/21/2023 10:12:17 1.28 Below low normal 4. 00-10.80 (K/uL) Final RBC 11/21/2023 10:12:17 4.43 3.85-5.15 (M/uL) Final Hemoglobin 11/21/2023 10:12:17 14.1 12.0-15.3 (g/dL) Final HCT 11/21/2023 10:12:17 42.8 36.0-45.2 (%) Final MCV 11/21/2023 10:12:17 96.6 81.5-97.5 (fL) Final MCH 11/21/2023 10:12:17 31.8 27.0-34.0 (pg) Final MCHC 11/21/2023 10:12:17 32.9 32.0-36.0 (g/dL) Final RDW 11/21/2023 10:12:17 13.7 11.5-15.5 (%) Final Platelets 11/21/2023 10:12:17 225 140-400 (K /uL) Final MPV 11/21/2023 10:12:17 10.7 6.6-11.1 ( fL) Final Performing Location [facility] [place] [address]
--- OUTSIDE RECORDS SUMMARY | 2023-12-07 20:33 | External Medical Summary | Summary of Care ---
Author Name Unknown Organization [facility] Address [address] [place] [address] Phone [phone] Care Team Providers Care It Architecture Analyst Name Role Phone Toby Bell MD Primary Care Provider +1- [phone] Reason for Visit * Reason Comments Chemotherapy T1L8Lyeda/Taxol * Episode Based Medications (Routine) - Authorized Specialty Diagnoses / Procedures Referred By Ese medina Referred To Contact Diagnoses Encounter for antineoplastic chemotherapy Malignant neoplasm of upper-inner quadrant of left breast in female, estrogen receptor negative (HCC) Procedures [place] PALONOSETRON HCL [place] CARBOPLATIN INJECTION [place] INJ PEMBROLIZUMAB [place] PACLITAXEL INJECTION DOXO, EMEND, CYTOXAN-TO START 01/22/24, UDENYCA TO START 01/23/24 PER TREATMENT PLAN Nas Palacios MD [address] [place] [address] Anc Hem/Onc [address] [address] Referral ID Status Reason Start Date Expiration Date V isits Requested Visits Authorized [id number] Authorized 10/27/2023 01/16/2024 999 99 Encounter Details Date Type Department Care Team (Latest Contact Info) Description 11/14/2023 12:00 PM EDT Hem/Onc Treatment Hematology/Oncolog y Treatment, [address] [phone] Christina, Chair 10 Hem Onc [address] [place] [address] Encounter for antineoplastic chemotherapy*; Malignant neoplasm of [...] Description 11/28/2023 10:10 AM EDT Laboratory Laboratory [facility] 200 [facility] [place] [phone] Christina, Lab [facility] 200 [facility] [place] [address] 11/28/2023 11:00 AM EDT Hem/Onc Treatment Hematology/Oncology [address] [phone] Christina, Chair [address] Hem On[address] [place] [address] 12/06/2023 8:00 AM EDT Laboratory Laboratory [facility] [place] [address] [place] [phone] Christina, Lab [facility] 200 [facility] [place] [address] 12/06/2023 8:30 AM EDT Office Visit Hematology/Oncology [facility] [place] [address] [place] [phone] Alissa Roldan CRNP [address] [facility] [place] [id number] 12/06/2023 9:00 AM EDT Hem/Onc Treatment Hematology/Oncology [address] [phone] Christina, Chair 10 Hem Onc [address] [place], [place] [address] 12/12/2023 10:00 AM EDT Laboratory Laboratory Scenery [place] [address] [place] [phone] Christina, Lab [address]enery [address] [facility] [place] [place] [address] 12/12/2023 11:00 AM EDT Hem/Onc Treatment Hematology/Oncology Treatment, [place] [address] [place], [place] [phone] Christina, Chair 6 Hem Onc [address] [place], [place] [address] 02/03/2024 10:30 AM EDT Telemedicine Genetics HemOnc, [facility] [address] [place] [address] Mabel Ford, MD [address] [place] [address] 03/16/2024 2:40 PM EDT Office Visit [facility] [address] [place] [phone] Toby Bell MD [address] [place] [address] 04/10/2024 10:30 AM EST Imaging Radiology, [place] [address] [facility] [place], [place] [address] Health Maintenance Due Date Last Done Comments [...] this encounter Medical Devices Implanted Type Area Water Plant Operator Device Identifier Shelf Expiration Date Model / Serial / Lot Port Power Mri W8fr Cath - [id number] Implanted:Qty: 1 on 11/02/2023 by Mariah Abdul MD at OR [facility] Right: Chest CR BARD : PERIPHERAL VASCULAR 08/20/2024 [id number] / / [id number] documented as of this encounter Visit Diagnoses [...] Advance Directives occurred with: Patient Care Teams It Architecture Analyst Relationship Specialty Start Date End Date Toby Bell MD [address] [facility] [place] [address] PCP - General Family Medicine 02/08/22 documented as of this encounter
--- OUTSIDE RECORDS SUMMARY | 2023-12-07 20:33 | External Medical Summary | Summary of Care ---
Author Name Unknown Organization [facility] Address [address] [place] [address] Phone [phone] Care Team Providers Care Content Producer Name Role Phone Toby Bell MD Primary Care Provider +1- [phone] Reason for Visit * Reason Comments Chemotherapy [id number]/Taxol * Episode Based Medications (Routine) - Authorized Specialty Diagnoses / Procedures Referred By Ese medina Referred To Contact Diagnoses Encounter for antineoplastic chemotherapy Malignant neoplasm of upper-inner quadrant of left breast in female, estrogen receptor negative (HCC) Procedures TX PALONOSETRON HCL TX CARBOPLATIN INJECTION TX INJ PEMBROLIZUMAB TX PACLITAXEL INJECTION DOXO, EMEND, CYTOXAN-TO START 01/22/24, UDENYCA TO START 01/23/24 PER TREATMENT PLAN Nas Palacios MD [address] [place] [address] Anc Hem/Onc [address] [address] Referral ID Status Reason Start Date Expiration Date V isits Requested Visits Authorized [id number] Authorized 10/27/2023 01/16/2024 999 99 Encounter Details Date Type Department Care Team (Latest Contact Info) Description 11/14/2023 12:00 PM EDT Hem/Onc Treatment Hematology/Oncolog y Treatment, [address] [phone] Christina, Chair 10 Hem Onc Scenery [address] [place] [address] Encounter for antineoplastic chemotherapy*; Malignant neoplasm of [...] Description 11/28/2023 10:10 AM EDT Laboratory Laboratory [facility] [address] [facility] [place] [phone] Christina, Lab [facility] [address] [facility] [place] [address] 11/28/2023 11:00 AM EDT Hem/Onc Treatment Hematology/Oncology [address] [phone] Christina, Chair [address] [place] [address] 12/06/2023 8:00 AM EDT Laboratory Laboratory [facility] [place] [address] [place] [phone] Christina, Lab [facility] [address] [facility] [place] [address] 12/06/2023 8:30 AM EDT Office Visit Hematology/Oncology [facility] [place] [address] [place] [phone] Alissa Roldan CRNP 400 [facility] [place] [id number] 12/06/2023 9:00 AM EDT Hem/Onc Treatment Hematology/Oncology [address] [phone] Christina, Chair 10 Hem Onc Scenery [address] [place], [place] [address] 12/12/2023 10:00 AM EDT Laboratory Laboratory [address] [place] [address] [place] [phone] Christina, Lab Scenery [address] [facility] [place], [place] [address] 12/12/2023 11:00 AM EDT Hem/Onc Treatment Hematology/Oncology Treatment, [place] [address] [place], [place] [phone] Christina, Chair 6 Hem Onc Scenery [address] [place], [place] [address] 02/03/2024 10:30 AM EDT Telemedicine Genetics [facility] [address] 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 Sergeant At [employer] Device Identifier Shelf Expiration Date Model / Serial / Lot Port Power Mri W8fr Cath - [id number] Implanted:Qty: 1 on 11/02/2023 by Mariah Abdul MD at OR [facility] [address] Right: Chest CR BARD : PERIPHERAL VASCULAR 08/20/2024 [id number] / / [id number] documented as of this encounter Visit Diagnoses [...] Advance Directives occurred with: Patient Care Teams Content Producer Relationship Specialty Start Date End Date Toby Bell MD [address] [facility] [place] [address] PCP - General Family Medicine 02/08/22 documented as of this encounter
--- OUTSIDE RECORDS SUMMARY | 2023-12-07 20:33 | External Medical Summary ---
Author Name Unknown Address Unknown Organization K09:[facility] [address] [place] [address] Laboratory Report Ordering Provider Test Date Status LEANN ROWELL 11/21/2023 10:12:17 Final Observation Date Value Abnormality Reference (Units ) Status BUN 11/21/2023 10:12:17 19 6-20 (mg/dL) Final Creatinine 11/21/2023 10:12:17 0.7 0.5-1.0 (mg/dL) Final Glomerular filtration rate/1.73 sq M.predicted [Volume Rate/Area] in Serum, Plasma or Blood by Creatinine-based formula (CKD-EPI) 11/21/2023 10:12:17 81 >=60 (mL/min) Final eGFR is calculated based on the CKD-EPI 2020 equation Sodium 11/21/2023 10:12:17 137 135-146 (m mol/L) Final Potassium 11/21/2023 10:12:17 4.3 3.5-5.1 (m mol/L) Final Cl 11/21/2023 10:12:17 101 98-107 (mm ol/L) Final CO2 11/21/2023 10:12:17 22 22-32 (mmo l/L) Final Anion gap 11/21/2023 10:12:17 14 7-15 (mmol /L) Final Glucose 11/21/2023 10:12:17 210 Above high normal 70 -120 (mg/dL) Final Albumin 11/21/2023 10:12:17 4.2 3.8-5.0 (g /dL) Final AST (Aspartate aminotransferase) 11/21/2023 10:12:17 22 10-35 (U/L) Fin al Alk Phos 11/21/2023 10:12:17 65 35-130 (U/ L) Final Bilirubin, Total 11/21/2023 10:12:17 0.3 <=1 .2 (mg/dL) Final Calcium 11/21/2023 10:12:17 9.1 8.4-10.2 ( mg/dL) Final Protein 11/21/2023 10:12:17 7.3 6.0-8.3 (g /dL) Final ALT (Alanine aminotransferase) 11/21/2023 10:12:17 12 10-35 (U/L) Octavio lo Performing Location [facility] [place] [address]
--- OUTSIDE RECORDS SUMMARY | 2023-12-07 20:33 | External Medical Summary ---
Author Name Unknown Address Unknown Organization K01:[facility] [place] - [address] [facility] [address] [place] [address] Laboratory Report Ordering Provider Test Date Status LEANN ROWELL 11/28/2023 09:44:00 Final Observation Date Value Abnormality Reference (Units ) Status TSH 11/28/2023 09:44:00 0.76 0.27-4.20 (uIU/mL) Final Performing Location [facility] [place] - [address] [place] [address]
--- OUTSIDE RECORDS SUMMARY | 2023-12-07 20:33 | External Medical Summary ---
Author Name Unknown Address Unknown Organization K09:[facility] [place] [address] Laboratory Report Ordering Provider Test Date Status LEANN ROWELL 11/21/2023 10:12:17 Final Observation Date Value Abnormality Reference (Units ) Status SYNC LEUKOCYTES IN BLOOD BY AUTOMATED COUNT 11/21/2023 10:12:17 1.28 Below low normal 4.00-10.80 (K/uL) Final Segs 11/21/2023 10:12:17 82.0 Above high normal 40.0-75.0 (%) Final Lymphs % 11/21/2023 10:12:17 16.4 Below low normal 18.0-42.0 (%) Final Monos 11/21/2023 10:12:17 1.6 1.0-11.0 (%) Final Eosinophils 11/21/2023 10:12:17 0.0 0.0-6.0 (%) Final Basos 11/21/2023 10:12:17 0.0 0.0-2.0 (%) Final Absolute Segs 11/21/2023 10:12:17 1.05 Below low normal 1.80-7.70 (K/uL) Final Lymphs, absolute 11/21/2023 10:12:17 0.21 Below low normal 1.00-4.80 (K/ul) Final Monos, Abs 11/21/2023 10:12:17 0.02 0.00-1.10 (K/uL) Final Eos, Abs 11/21/2023 10:12:17 0.00 0.00-0.70 (K/uL) Final Basos, Abs 11/21/2023 10:12:17 0.00 0.00-0.20 (K/uL) Final Performing Location [facility] [place] [address]
--- OUTSIDE RECORDS SUMMARY | 2023-12-07 20:33 | External Medical Summary ---
Author Name Unknown Address Unknown Organization K09:[facility] [place] [address] Laboratory Report Ordering Provider Test Date Status LEANN ROWELL 11/14/2023 11:03:00 Final Observation Date Value Abnormality Reference (Units ) Status BUN 11/14/2023 11:03:00 16 6-20 (mg/dL) Final Creatinine 11/14/2023 11:03:00 0.7 0.5-1.0 (mg/dL) Final Glomerular filtration rate/1.73 sq M.predicted [Volume Rate/Area] in Serum, Plasma or Blood by Creatinine-based formula (CKD-EPI) 11/14/2023 11:03:00 86 >=60 (mL/min) Final eGFR is calculated based on the CKD-EPI 2020 equation Sodium 11/14/2023 11:03:00 137 135-146 (m mol/L) Final Potassium 11/14/2023 11:03:00 4.5 3.5-5.1 (m mol/L) Final Cl 11/14/2023 11:03:00 103 98-107 (mm ol/L) Final CO2 11/14/2023 11:03:00 21 Below low normal 22- 32 (mmol/L) Final Anion gap 11/14/2023 11:03:00 13 7-15 (mmol /L) Final Glucose 11/14/2023 11:03:00 170 Above high normal 70 -120 (mg/dL) Final Albumin 11/14/2023 11:03:00 4.5 3.8-5.0 (g /dL) Final AST (Aspartate aminotransferase) 11/14/2023 11:03:00 22 10-35 (U/L) Fin al Alk Phos 11/14/2023 11:03:00 65 35-130 (U/ L) Final Bilirubin, Total 11/14/2023 11:03:00 0.4 <=1 .2 (mg/dL) Final Calcium 11/14/2023 11:03:00 9.4 8.4-10.2 ( mg/dL) Final Protein 11/14/2023 11:03:00 7.4 6.0-8.3 (g /dL) Final ALT (Alanine aminotransferase) 11/14/2023 11:03:00 9 Below low normal 10-35 (U/L) Final Performing Location [facility] [address] [place] [address]
--- OUTSIDE RECORDS SUMMARY | 2023-12-07 20:33 | External Medical Summary | Summary of Care ---
Author Name Unknown Organization [facility] Address [address] [place] [address] Phone [phone] Care Team Providers Care Representative Name Role Phone Toby Bell MD Primary Care Provider [phone]- [phone] Reason for Visit * Reason Comments Chemotherapy [id number]/Taxol * Episode Based Medications (Routine) - Authorized [...] PER TREATMENT PLAN Nas Palacios MD [address] [place] [address] Anc Hem/Onc [address] [address] Referral ID Status Reason Start Date Expiration Date V isits Requested Visits Authorized [id number] Authorized 10/27/2023 01/16/2024 999 99 Encounter Details Date Type Department Care Team (Latest Contact Info) Description 11/14/2023 12:00 PM EDT Hem/Onc Treatment Hematology/Oncolog y Treatment, [address] [phone] Christina, Chair 10 Hem Onc Scenery [address] [place] [address] Encounter for antineoplastic chemotherapy*; Malignant neoplasm of [...] Description 11/28/2023 10:10 AM EDT Laboratory Laboratory [facility] 200 [facility] [place] [phone] Christina, Lab [facility] 200 [facility] [place] [address] 11/28/2023 11:00 AM EDT Hem/Onc Treatment Hematology/Oncology [address] [phone] Christina, Chair 10 Hem Onc [address] [place] [address] 12/06/2023 8:00 AM EDT Laboratory Laboratory [facility] [place] [address] [place] [phone] Christina, Lab [facility] 200 [facility] [place] [address] 12/06/2023 8:30 AM EDT Office Visit Hematology/Oncology [facility] [place] [address] [place] [phone] Alissa Roldan CRNP 400 [facility] [place] [id number] 12/06/2023 9:00 AM EDT Hem/Onc Treatment Hematology/Oncology [address] [phone] Christina, Chair 10 Hem Onc Scenery [address] [place], [place] [address] 12/12/2023 10:00 AM EDT Laboratory Laboratory Scenery [place] [address] [place] [phone] Christina, Lab Scenery [address] [facility] [place], [place] [address] 12/12/2023 11:00 AM EDT Hem/Onc Treatment Hematology/Oncology Treatment, [place] [address] [place], [place] [phone] Christina, Chair 6 Hem Onc Scenery [address] [place], [place] [address] 02/03/2024 10:30 AM EDT Telemedicine Genetics [facility] [address] [place] [address] Mabel Ford, [place] [address] [place] [address] 03/16/2024 2:40 PM EDT Office Visit [facility] [address] [place] [phone] Toby Bell MD [address] [place] [address] 04/10/2024 10:30 AM EST Imaging Radiology, [place] [address] [facility] [place], [place] [address] Health Maintenance Due Date Last Done Comments [...] this encounter Medical Devices Implanted Type Area Wastewater Treatment Plant Operator Device Identifier Shelf Expiration Date Model / Serial / Lot Port Power Mri W8fr Cath - [id number] Implanted:Qty: 1 on 11/02/2023 by Mariah Abdul MD at OR [facility] Right: Chest CR BARD : PERIPHERAL VASCULAR 08/20/2024 [id number] / / [id number] documented as of this encounter Visit Diagnoses [...] Advance Directives occurred with: Patient Care Teams Representative Relationship Specialty Start Date End Date Toby Bell MD [address] [facility] [place] [address] PCP - General Family Medicine 02/08/22 documented as of this encounter
--- OUTSIDE RECORDS SUMMARY | 2023-12-07 20:33 | External Medical Summary | Summary of Care ---
Author Name Unknown Organization [facility] Address [address] [place] [address] Phone [phone] Care Team Providers Care Regional Ehs Manager Name Role Phone Toby Bell MD Primary Care Provider +1- [phone] Reason for Visit * Reason Comments Chemotherapy [id number]/Taxol * Episode Based Medications (Routine) - Authorized Specialty Diagnoses / Procedures Referred By Ese medina Referred To Contact Diagnoses Encounter for antineoplastic chemotherapy Malignant neoplasm of upper-inner quadrant of left breast in female, estrogen receptor negative (HCC) Procedures NC PALONOSETRON HCL NC CARBOPLATIN INJECTION NC INJ PEMBROLIZUMAB NC PACLITAXEL INJECTION DOXO, EMEND, CYTOXAN-TO START 01/22/24, UDENYCA TO START 01/23/24 PER TREATMENT PLAN Nas Palacios MD [address] [place] [address] Anc Hem/Onc [address] [address] Referral ID Status Reason Start Date Expiration Date V isits Requested Visits Authorized [id number] Authorized 10/27/2023 01/16/2024 999 99 Encounter Details Date Type Department Care Team (Latest Contact Info) Description 11/14/2023 12:00 PM EDT Hem/Onc Treatment Hematology/Oncolog y Treatment, [address] [phone] Christina, Chair 10 Hem Onc Scenery [address] [place] [address] Encounter for antineoplastic chemotherapy*; Malignant neoplasm of upper-inner quadrant of left breast in female, estrogen receptor negative (HCC) Allergies Active Allergy Reactions Criticality Noted Date Comments Guaifenesin & Derivatives 10/11/2000 Daily--hives Lisinopril Edema face/lips/tongue High 08/05/2021 documented as of this encounter (statuses as of 11/14/2023) Medications Medication Sig Dispensed Refills Start Date [...] as of this encounter (statuses as of 11/14/2023) Active Problems Problem Noted Date Diagnosed Date [...] as of this encounter (statuses as of 11/14/2023) Immunizations Name Administration Dates Next Due COVID-19 [...] Care Team (Late st Contact Info) Description 11/21/2023 10:10 AM EDT Laboratory Laboratory [facility] [address] [place] [phone] Christina, Lab Scenery 200 [facility] [place] [address] 11/21/2023 11:00 AM EDT Hem/Onc Treatment [facility]ematology/Oncology Treatment, [place] [facility] [phone] Christina, Chair 8 Hem Onc Scene 200 [facility] [place] [address] 11/28/2023 10:10 AM EDT Laboratory Laboratory [facility] [place] [address] [place] [phone] Christina, Lab Scenery [address] [place] [address] 11/28/2023 11:00 AM EDT Hem/Onc Treatment Hematology/Oncology Treatment, [place] [facility] [phone] Christina, Chair 10 Hem Onc Scenery [address] [place] [address] 12/06/2023 8:00 AM EDT Laboratory Laboratory [facility] [place] [address] [place] [phone] Christina, Lab Scenery [address] [place], [place] [address] 12/06/2023 8:30 AM EDT Office Visit Hematology/Oncology Scenery [place] [address] [place] [phone] Alissa Roldan CRNP 400 [facility] [place] [address] 12/06/2023 9:00 AM EDT Hem/Onc Treatment Hematology/Oncology Treatment, [place] [facility], [place] [phone] Christina, Chair 10 Hem Onc Scenery 200 [facility] [place], [place] [address] 12/12/2023 10:00 AM EDT Laboratory Laboratory [facility] Christina [place] [address] [place], [place] [phone] Christina, Lab Scenery 200 [facility] [place], [place] [address] 12/12/2023 11:00 AM EDT Hem/Onc Treatment Hematology/Oncology Treatment, [address], [place] [phone] Christina, Chair 6 Hem Onc Scenery 200 [facility] [place], [place] [address] 02/03/2024 10:30 AM EDT Telemedicine Genetics [facility] [address] [place] [address] Mabel Ford, [place] [address] [place] [address] 03/16/2024 2:40 PM EDT Office Visit [facility] [address] [place] [phone] Toby Bell MD [address] [place] [address] 04/10/2024 10:30 AM EST Imaging Radiology, [address] [place] [address] Health Maintenance Due Date Last Done Comments DXA Scan 1940 Albumin/Creatinine Ratio 09/16/1958 COVID-19 Vaccine (3 - Moderna risk series) 10/14/2020 09/16/2020, 08/15/2020 HbA1c 05/06/2023 11/04/2022 Depression Screening 10/10/2024 10/11/2023 Diabetic Foot Exam 10/10/2024 10/11/2023 Diabetic Eye Exam 10/19/2024 10/20/2023, , 10/20/2023, Additional history exists GFR 11/13/2024 11/14/2023, 10/21, 10/28/2023, Additional history exists DTaP,Tdap,and Td Vaccines (3 - Td or Tdap) 07/10/2026 07/10/2016, 07/10/2016, 08/12/2008 Pneumococcal Vaccine: 65+ Years Completed 03/15/2016, 09/27/2006 Influenza Vaccine (FLU shot) Completed 03/04/2023, 02/08/2022, 02/14/2020, Additional history exists GARDASIL-HPV IMMUNIZATION SERIES Aged Out No longer eligible based on patient's age to complete this topic Hepatitis B Aged Out No longer eligi ble based on patient's age to complete this topic MENINGOCOCCAL (MENACTRA/MENVEO) Aged Out No longer eligible based on patient's age to complete this topic Zoster Vaccines Discontinued documented as of this encounter Medical Devices Implanted Type Area Cad Technician Device Identifier Shelf Expiration Date Model / Serial / Lot Port Power Mri W8fr Cath - [id number] Implanted:Qty: 1 on 11/02/2023 by Mariah Abdul MD at OR [facility] Right: Chest CR BARD : PERIPHERAL VASCULAR 08/20/2024 [id number] / / [id number] documented as of this encounter Visit Diagnoses [...] ONCE PRN Other, Hypersensitivity Reaction, Starting on Tue11/14/23 at 1220, Until Tue11/15/23 at 1219, For 24 hours EPINEPHrine 1 MG/ML inj 0.3 mg 0.3 mg, Intramuscular, ONCE PRN Other, Hypersensitivity Reaction or Anaphylaxis, Starting on Tue11/14/23 at 1220, Until Tue11/15/23 at 1219, For 24 hours hEParin 100 UNIT/ML Lock Flush inj 500 Units 500 Units (5 mL), IV Lock, PRN Other, IV Flush, Starting on Tue11/14/23 at 1220, Until Tue11/15/23 at 1219, For 24 hours, Do not flush if lock, PICC, or central line not in place; IV infusing or unable to flush. Given 11/14/2023 2:50 PM EDT 500 Units Hydrocortisone Sod Suc (PF) (Solu-Cortef) inj 100 mg 100 mg, IV Push, ONCE PRN Other, Hypersensitivity Reaction, Starting on Tue11/14/23 at 1220, Until Tue11/15/23 at 1219, For 24 hours LORAzepam (Ativan) tab 0.5 mg 0.5 mg, Oral, ONCE PRN Anxiety, Nausea, Starting on Tue11/14/23 at 1330, Until Discontinued NSS infusion Intravenous, at 50 mL/hr, PRN, Starting on Tue11/14/23 at 1330, Until Discontinued, Maintenance line Start Infusion 11/14/2023 12:33 PM EDT 50 mL/hr oxygen GAS Inhalation, OXYGEN, First dose on Tue11/14/23 at 1600, Until Discontinued, Device/Managed by: Low [...] Flush, Starting on Tue11/14/23 at 1220, Until Tue11/15/23 at 1219, For 24 hours, Do not flush if lock, PICC, or central line not in place; IV infusing or unable to flush. Given 11/14/2023 2:50 PM EDT 10 mL Inactive Administered Medications [...] Given 11/14/2023 12:33 PM EDT 20 mg PACLitaxel (Taxol) 138 [...] at 1300, For 1 dose, Restricted per [facility] antiemetic guidelines Given 11/14/2023 12:33 PM EDT 0.25 mg documented in this encounter Advance Directives * Full Code (Latest Code Status on File) Date Activated Date Inactivated Comments 11/02/2023 11:37 AM 11/02/2023 6:38 PM This order reflects the patients wishes and were consensually agreed upon. Question Answer Comments Discussion of Advance Directives occurred with: Patient Care Teams Regional Ehs Manager Relationship Specialty Start Date End Date Toby Bell MD [address] [facility] [place] [place] [address] PCP - General Family Medicine 02/08/22 documented as of this encounter
--- OUTSIDE RECORDS SUMMARY | 2023-12-07 20:33 | External Medical Summary | Summary of Care ---
Author Name Unknown Organization [facility] Address [address] [place] [address] Phone [phone] Care Team Providers Care Mender [employer] Name Role Phone Toby Bell MD Primary Care Provider +1- [phone] Reason for Visit * Reason Comments Outpatient Testing Encounter Details Date Type Department Care Team (Late st Contact Info) Description 11/21/2023 10:10 AM EDT Laboratory Laboratory [facility] [place] [address] [place] [phone] [facility] Lab Scenery [address] [place] [address] Malignant neoplasm of upper-inner quadrant of left [...] Team (Late st Contact Info) Description 11/21/2023 11:00 AM EDT Hem/Onc Treatment [facility]ematology[facility] [place] [facility] [phone] Christina, Chair 8 Hem Onc Scenery [address] [place] [address] Arrived 11/28/2023 10:10 AM EDT Laboratory Laboratory [facility] [place] [address] [place] [phone] Christina Lab [place] [address] [place] [address] 11/28/2023 11:00 AM EDT [facility] [address] [facility] [place] [phone] Christina, Chair 10 Hem Onc Scenery [address] [place] [address] 12/06/2023 8:00 AM EDT Laboratory Laboratory [facility] [place] [address] [place] [phone] Christina, Lab [place] [address] [place] [address] 12/06/2023 8:30 AM EDT Office Visit Hematology/Oncology [facility] [address] [place] [phone] Alissa Roldan CRNP 400 [facility] [place] [address] 12/06/2023 9:00 AM EDT Hem/Onc Treatment Hematology/Oncology Treatment, [place] [address] [facility], [place] [phone] Christina, Chair 10 Hem Onc Scenery [address] [facility] [place] [address] 12/12/2023 10:00 AM EDT Laboratory Laboratory [facility] [place] [address] [place] [phone] Christina, Lab [facility] [address] [facility] [place] [address] 12/12/2023 11:00 AM EDT Hem/Onc Treatment Hematology/Oncology Treatment, [place] [address] [facility], [place] [phone] Christina, Chair 6 Hem Onc [facility] [address] [facility] [place] [address] 02/03/2024 10:30 AM EDT Telemedicine Genetics HemOnc, [facility] [address] [place] [address] [place], [place] [address] [place] [address] 03/16/2024 2:40 PM EDT Office Visit [facility] [address] [place] [address] Toby Bell MD [address] [place] [address] 04/10/2024 10:30 AM EST Imaging Radiology, [address] [place] [address] Pending Results Name Type Priority Associated Diagnoses Date /Time COMPREHENSIVE METABOLIC PANEL Lab STAT Malignant neoplasm of upper-inner quadrant of left breast in female, estrogen receptor negative (HCC) 11/21/2023 10:12 AM EDT CBC WITH WBC DIFFERENTIAL Lab STAT Malignant neoplasm of upper-inner quadrant of left breast in female, estrogen receptor negative (HCC) 11/21/2023 10:12 AM EDT CBC Lab STAT Malignant neoplasm of upper-inner quadrant of left breast in female, estrogen receptor negative (HCC) 11/21/2023 10:12 AM EDT DIFFERENTIAL, AUTOMATED Lab STAT Malignant neoplasm of upper-inner quadrant of left breast in female, estrogen receptor negative (HCC) 11/21/2023 10:12 AM EDT Health Maintenance Due Date Last [...] this encounter Medical Devices Implanted Type Area Manufacturing Technician Device Identifier Shelf Expiration Date Model / Serial / Lot Port Power Mri W8fr Cath - [id number] Implanted:Qty: 1 on 11/02/2023 by Mariah Abdul MD at OR [facility] Right: Chest CR BARD : PERIPHERAL VASCULAR 08/20/2024 [id number] / / [id number] documented as of this encounter Visit Diagnoses [...] Advance Directives occurred with: Patient Care Teams M[employer] Relationship Specialty Start Date End Date Toby Bell MD [address] [place] [address] PCP - General Family Medicine 02/08/22 documented as of this encounter
--- OUTSIDE RECORDS SUMMARY | 2023-12-07 20:33 | External Medical Summary | Summary of Care ---
Author Name Unknown Organization [facility] Address [address] [place] [address] Phone [phone] Care Team Providers Care Director Educational Radio Name Role Phone Toby Bell MD Primary Care Provider +1- [phone] Reason for Visit * Reason Comments Chemotherapy [id number] * Episode Based Medications (Routine) - Authorized Specialty Diagnoses / Procedures Referred By Ese medina Referred To Contact Diagnoses Encounter for antineoplastic chemotherapy Malignant neoplasm of upper-inner quadrant of left breast in female, estrogen receptor negative (HCC) Procedures GA PALONOSETRON HCL GA CARBOPLATIN INJECTION GA INJ PEMBROLIZUMAB GA PACLITAXEL INJECTION DOXO, EMEND, CYTOXAN-TO START 01/22/24, UDENYCA TO START 01/23/24 PER TREATMENT PLAN Nas Palacios MD [address] [place] [address] Anc Hem/Onc [address] [address] Referral ID Status Reason Start Date Expiration Date V isits Requested Visits Authorized [id number] Authorized 10/27/2023 01/16/2024 999 [id number] Encounter Details Date Type Department Care Team (Latest Contact Info) Description 11/14/2023 12:00 PM EDT Hem/Onc Treatment Hematology/Oncolog y Treatment, [address] [phone] Christina, Chair 10 Hem Onc Scenery [address] [place] [address] Encounter for antineoplastic chemotherapy*; Malignant neoplasm of [...] Description 11/28/2023 10:10 AM EDT Laboratory Laboratory [facility] 200 [facility] [place] [phone] Christina, Lab [facility] 200 [facility] [place] [address] 11/28/2023 11:00 AM EDT Hem/Onc Treatment Hematology/Oncology [address] [phone] Christina, Chair 10 Hem Onc [address] [place] [address] 12/06/2023 8:00 AM EDT Laboratory Laboratory [facility] [place] [address] [place] [phone] Christina, Lab [facility] 200 [facility] [place] [address] 12/06/2023 8:30 AM EDT Office Visit Hematology/Oncology [facility] [place] [address] [place] [phone] Alissa Roldan CRNP 400 [facility] [place] [phone] 12/06/2023 9:00 AM EDT Hem/Onc Treatment Hematology/Oncology [address] [phone] Christina, Chair 10 Hem Onc Scenery [address] [place], [place] [address] 12/12/2023 10:00 AM EDT Laboratory Laboratory Scenery [place] [address] [place] [phone] Christina, Lab Scenery [address] [facility] [place], [place] [address] 12/12/2023 11:00 AM EDT Hem/Onc Treatment Hematology/Oncology Treatment, [place] [address] [place], [place] [phone] Christina, Chair 6 Hem Onc Scenery [address] [place], [place] [address] 02/03/2024 10:30 AM EDT Telemedicine Genetics HemOnc, [facility] [address] [place] [address] [place], [place] [address] [place] [address] 03/16/2024 2:40 PM EDT Office Visit [facility] [address] [place] [phone] Toby Bell MD [address] [place] [address] 04/10/2024 10:30 AM EST Imaging Radiology, [place] [phone] [facility] [place], [place] [address] Health Maintenance Due Date Last Done Comments [...] this encounter Medical Devices Implanted Type Area Steam Tank Operator Device Identifier Shelf Expiration Date Model / Serial / Lot Port Power Mri W8fr Cath - [id number] Implanted:Qty: 1 on 11/02/2023 by Mariah Abdul MD at OR [facility] Right: Chest CR BARD : PERIPHERAL VASCULAR 08/20/2024 [id number] / / [id number] documented as of this encounter Visit Diagnoses [...] Advance Directives occurred with: Patient Care Teams Director Educational Radio Relationship Specialty Start Date End Date Toby Bell MD [address] [facility] [place] [address] PCP - General Family Medicine 02/08/22 documented as of this encounter
--- OUTSIDE RECORDS SUMMARY | 2023-12-07 20:34 | External Medical Summary ---
Author Name Unknown Address Unknown Organization K09:[facility] [address] Laboratory Report Ordering Provider Test Date Status LEANN ROWELL 11/07/2023 10:01:47 Final Observation Date Value Abnormality Reference (Units ) Status SYNC LEUKOCYTES IN BLOOD BY AUTOMATED COUNT 11/07/2023 10:01:47 3.52 Below low normal 4.00-10.80 (K/uL) Final Segs 11/07/2023 10:01:47 91.2 Above high normal 40.0-75.0 (%) Final Lymphs % 11/07/2023 10:01:47 7.7 Below low normal 18.0-42.0 (%) Final Monos 11/07/2023 10:01:47 1.1 1.0-11.0 (%) Final Eosinophils 11/07/2023 10:01:47 0.0 0.0-6.0 (%) Final Basos 11/07/2023 10:01:47 0.0 0.0-2.0 (%) Final Absolute Segs 11/07/2023 10:01:47 3.21 1.80-7.70 (K/uL) Final Lymphs, absolute 11/07/2023 10:01:47 0.27 Below low normal 1.00-4.80 (K/ul) Final Monos, Abs 11/07/2023 10:01:47 0.04 0.00-1.10 (K/uL) Final Eos, Abs 11/07/2023 10:01:47 0.00 0.00-0.70 (K/uL) Final Basos, Abs 11/07/2023 10:01:47 0.00 0.00-0.20 (K/uL) Final Performing Location [facility] [place] [address]
--- OUTSIDE RECORDS SUMMARY | 2023-12-07 20:34 | External Medical Summary | Summary of Care ---
Author Name Unknown Organization [facility] Address [address] [place] [address] Phone [phone] Care Team Providers Care Deployment Technician Name Role Phone Toby Bell MD Primary Care Provider [phone] Reason for Referral * Evaluate & Treat - Unlimited Visits (Within 10 days (routine)) - Authorized Specialty Diagnoses / Procedures Referred By Ese mednia Referred To Contact General Surgery Diagnoses Malignant neoplasm of left female breast, unspecified estrogen receptor status, unspecified site of breast (HCC) Toby Bell MD [address] [place] [address] Referral ID Status Reason Start Date Expiration Date Visits Requested Visits Authorized [id number] Authorized Specialty Services Required 10/11/2023 999 999 Question Answer Referral Priority Within 10 days (routine) Where should this appointment be scheduled? [facility] What condition is the patient being seen for? Breast Conditions Do not place this order. Place [facility] Panel order [[id number]]. 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 Dx: bilateral knee pain and prepatellar bursitis one pair 0 08/31/2002 4 Discontinue d(Patient preference/ discontinua tion) Losartan Potassium 50 MG Oral Tablet (Cozaar) Take 1.5 Tablets by mouth in the morning. 135 Tablet 3 12/14/2022 4 Discontinue d(Refill) Atorvastatin Calcium 40 MG Oral Tablet (Lipitor) Take 1 Tablet by mouth in the morning. 90 Tablet 3 12/14/2022 4 Discontinue d(Refill) documented as of this encounter (statuses as of 10/31/2023) Active Problems Problem Noted Date Diagnosed Date [...] as of this encounter (statuses as of 10/31/2023) Immunizations Name Administration Dates Next Due COVID-19 [...] have money to get more. Patient declined Sex and Gender Information Value Date Recorded Sex Assigned at Female 10/11/2023 1:22 PM EDT Gender Identity Female 10/11/2023 1:22 PM EDT Sexual Orientation Straight 10/11/2023 1: 22 PM EDT Job Start Date Occupation Industry Not on file Not on file Not on file documented as of this encounter Last Filed Vital Signs Vital Sign Reading Time Taken Comments Blood Pressure 150/60 10/11/2023 1:17 PM EDT Pulse 64 10/11/2023 1:17 PM EDT Temperature 36.2 C (97.1 F) 10/11/2023 1:17 PM ED T Respiratory Rate 16 10/11/2023 1:17 PM EDT Oxygen Saturation 94% 10/11/2023 1:17 PM EDT Inhaled Oxygen Concentration - - Weight 62.6 kg (138 lb) 10/11/2023 1:17 PM EDT Height - - Body Mass Index 23.69 08/16/2023 5:26 PM EDT documented in this encounter Patient Instructions * Patient Instructions* Evelia Villeda LPN - 10/11/2023 1:17 PM EDT Osteoporosis: Screening for Bone Loss The strength of bones is measured by their density (thickness). High bone density means bones are less likely to fracture. If you are at risk for bone loss, your healthcare provider may refer you forbone density testing. Bone Density Testing Bone density testing is safe, quick, easy, and painless. Testing can detect osteoporosis before a fracture happens. It can also predict the risk of future fractures. And testing can measure the response to treatment. There are two types of tests that you may have: Peripheral tests are used for screening. They measure density in the finger, wrist, knee, banks, or heel. A common peripheral test is the quantitative ultrasound (QUS). Central tests are used for diagnosis. They measure density in the hip or spine. The main centraltest is the dual energy x-ray absorptiometry (DXA). The DXA is the standard bone density test. Who Should Be Tested? All postmenopausal women under age 65, with one or more risk factors in addition to menopause. All women age 65 and older. Postmenopausal women with fractures. Women who are thinking about treatment for osteoporosis. Women who have been on hormone therapy for a long time. Men or women with certain medical conditions or who are taking certain medications (such as glucocorticoids or prednisone) for a long period. Common Testing Sites Any bone can fracture, but with osteoporosis some bones fracture more easily. These include bones in the spine, wrist, shoulder, and hip. Thats why bone density testing may be done at one or more of these sites. Understanding Your Results The results of your test may seem confusing at first. Dont be afraid to ask your provider to explain. Your bone mineral density (BMD) describes the thickness of the bone that was scanned. Your healthcare provider will compare your BMD with the BMD of young, healthy bone. The result is called a T-score. Bones remodel at different rates. So, a healthy T-score in the wrist doesnt mean the spine is also healthy. Thats why more than one site may be scanned. [id number] [employer], [address] [place] [address], [place] [address]. All rights reserved. This information is not intended as a substitute for professional medical care. Always follow your healthcare professional's instructions Diabetes: Keeping Feet Healthy Inspect your feet every day for signs of a problem. Diabetes can damage nerves in your feet and cause neuropathy. This condition makes it hard for you to feel injuries or sore spots. Diabetes can also change blood flow, making it harder for small problems, like a blister, to heal properly. In fact, minor injuries can quickly become serious infections that send you to the hospital. Practice self-care to protect your feet and keep them healthy. Take Special Care Inspect your feet daily for problems such as redness, blisters, cracks, dry skin, or numbness. Use a mirror to see the bottoms of your feet. Or, ask for help. Manage your diabetes. Monitor and control your blood sugar. Take all your medications as prescribed. Avoid walking barefoot, even indoors. Wash your feet with warm water and mild soap. Dry well, especially between toes. Dont treat corns or calluses yourself. Talk to your doctor or fiberglass boat finisher (a doctor who specializes in foot care) if you need assistance trimming your toenails. Use moisturizing cream or lotion if you have dry skin, but dont use it between toes. Dont use heating pads on your feet. If you have neuropathy, you could get a burn and not feel it. Stop smoking. Smoking restricts blood flow and can make it harder for wounds to heal. Have Regular Checkups Foot problems can develop quickly. So be sure to follow your healthcare teams schedule for regular checkups. During office visits, take off your shoes and socks as soon as you get in the exam room. Ask your healthcare provider to examine your feet for problems. This will make it easier to find and treat small skin irritations before they get worse. Regular checkups can also help keep track of the blood flow and feeling in your feet. If you have neuropathy, you may need to have checkups more often. Wear Proper Footwear Wearing proper footwear is very important. If areas of your feet have been damaged by too much pressure, your healthcare provider may recommend changing your footwear. In some cases, avoiding high heels or tight work boots may be all thats needed. Or, your healthcare provider may recommend special shoes or custom inserts. These help protect your feet and keep existing irritations from getting worse. If you need special footwear, ask your healthcare provider if you qualify for [employer] diabetic shoe program. Make Sure Shoes and Socks Fit Any pair of shoes--new or old--should feel comfortable as soon as you put them on. There shouldnt be any rubbing when you walk. Wear the right shoe for any activity. For instance, a running shoe is designed to keep your feet injury-free while jogging. Buy shoes at the end of the day, when your feet are larger. Make sure they provide support without feeling too loose. Make sure your socks fit, too. Wear soft, seamless, well-padded socks for activity. Cotton or microfiber socks are best to help to absorb sweat. To protect your feet, avoid shoes that are open-toed or open-heeled. If you have questions about what kinds of shoes and socks are best, talk to your healthcare team. Get Regular Exercise Regular exercise improves blood flow in your feet. It also increases foot strength and flexibility.Gentle exercises, like walking or riding a stationary bicycle, are best. You can also do special foot exercises. Just be sure to talk with your healthcare provider before starting any exercise program. Also mention if any exercise causes pain, redness, or other signs of foot problems. Note: If you have any kind of break in the skin of your foot or ankle, keep the area clean. Then call your doctor--especially if the area doesnt appear to be healing. [id number] [employer], [address] [place] [address], [place] [address]. All rights reserved. This information is not intended as a substitute for professional medical care. Always follow your healthcare professional's instructions. documented in this encounter Progress Notes * Toby Bell MD - 10/31/2023 7:25 PM EDT Subjective: Humaira Stack is a 83 year old female here today for Chief Complaint Patient presents with Follow Up Pt here due to a follow up on biopsy left breast Pt presents for follow up of test results. She had an abnormal screening and then diagnostic mammogram. She recently had a biopsy and is here to review results. Biopsies did show breast cancer. Reviewed diagnosis with pt and have pt set up to see Breast Surgeon. Reviewed additional likely need for XRT, chemo. Past Medical History: Diagnosis Date Macular degeneration Undiagnosed cardiac murmurs Past Surgical History: Procedure Laterality Date CV STRESS (CARDIOLYTE) 07/06/99 Normal INFORMATION varicose veins stripped b/l INJECT DX/THER SUBSTANCE INTERLAMINAR LUMBAR/SACRAL W IMAGE GUIDE 04/22/2022 INJECTION SPINE LUMBAR OR SACRAL performed by Ad Villalba, at OR [facility] MISCELLANEOUS ORDER removed bone palate in order to get dentures Review of patient's allergies indicates: Allergen Reactions Lisinopril Edema face/lips/tongue Guaifenesin & Derivatives Daily--kei Current Outpatient Medications Medication Sig Dispense Refill OCUVITE OR TABS 1 TABLET DAILY 30 0 Atorvastatin Calcium 40 MG Oral Tablet (Lipitor) Take 1 Tablet by mouth in the morning. 90 Tablet 3 Losartan Potassium 50 MG Oral Tablet (Cozaar) Take 1.5 Tablets by mouth in the morning. 135 Tablet 3 Prochlorperazine Maleate 10 MG Oral Tablet (Compazine) Take 1 Tablet by mouth every 6 hours as needed for Nausea. (Patient not taking: Reported on 10/27/2023) 30 Tablet 0 Ondansetron HCl 8 MG Oral Tablet Take 1 Tablet by mouth every 8 hours as needed for Nausea. (Patient not taking: Reported on 10/27/2023) 30 Tablet 0 dexAMETHasone 4 MG Oral Tablet 12 mg (3 tab) 12 and 6 hours before chemotherapy (Patient not taking: Reported on 10/27/2023) 40 Tablet 0 Lidocaine-Prilocaine 2.5-2.5 % External Cream (Emla) APPLY TO SKIN OVER MEDIPORT & COVER 1HR PRIOR TO ACCESSING. (Patient not taking: Reported on 10/31/2023) 30 g 1 No current facility-administered medications for this visit. Objective: BP 150/60 | Pulse 64 | Temp 36.2 C (97.1 F) (Infrared ) | Resp 16 | Wt 62.6 kg (138 lb) | SpO2 94% | BMI 23.69 kg/m | BSA 1.68 m GEN: NAD Visit spent reviewing test results and setting up plan of care. No other exam performed. 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 | Check-out note: Please set up with Dr Abdul - new diagnosis or breast cancer. 22 min with pt and chart review. Toby Bell MD * Evelia Villeda LPN - 10/11/2023 1:13 PM EDT Socks and Shoes Removed for Annual Diabetic Foot Screening RIGHT FOOT: No Reddened, Cracking, Or Open Areas Noted. RIGHT Dorsalis Pedis Pulse: Palpable RIGHT Posterior Tibial Pulse: Palpable RIGHT Monofilament:Patient reports feeling monofilament pressure on plantar surface of foot LEFT FOOT: No Reddened, Cracking or Open Areas Noted. LEFT Dorsalis Pedis Pulse: Palpable LEFT Posterior Tibial Pulse: Palpable LEFT Monofilament:Patient reports difficulty feeling monofilament at Great toe- plantar surface and Ball of Foot-base of great toe Do you need diabetic shoes: No DM Foot Exam completed today. Provider aware. Evelia Villeda LPN Dexa scan ordered today. Provider aware. Evelia Villeda LPN documented in this encounter Nursing Notes * Evelia Villeda LPN - 10/11/2023 1:11 PM EDT Chief Complaint Patient presents with Follow Up Pt here due to a follow up on biopsy left breast documented in this encounter Plan of Treatment Upcoming Encounters Date Type Department Care Team (Latest Contact Info) Description 11/02/2023 12:45 PM EDT Hospital Encounter [facility], Operating Room [facility] [address] [place] [id number] Mariah Abdul MD [address] [place] [address] 11/02/2023 12:45 PM EDT - 11/02/2023 2:00 PM EDT Surgery [facility], Operating Room [facility] [address] [place] [id number] Mariah Abdul MD [address] [place] [address] INSERT TUNNELED CENTRAL VENOUS ACCESS WITH SUBQ PORT 11/08/2023 9:00 AM EDT Cardiac Studies Cardiac Studies, [facility] [address] [place] [address] 02/03/2024 10:30 AM EDT Telemedicine Genetics [facility], [facility] [address] [place] [address] Mabel [place], [place] [address] [place] [address] 03/16/2024 2:40 PM EDT Office Visit [facility] [address] [place] [id number] Toby Bell MD [address] [facility] [place] [address] 04/10/2024 10:30 AM EST Imaging Radiology, [address] [place] [address] Scheduled Orders Name Type Priority Associated Diagnoses Orde r Schedule DEXA SCAN/BONE MINERAL AXIAL Medical Imaging Routine Postmenopausal status, age-related Expected: 10/11/2023 (Approximate), Expires: 11/10/2024 Scheduled Procedures Name Priority Associated Diagnoses Date/Ti me INSERT TUNNELED CENTRAL VENOUS ACCESS WITH SUBQ PORT Malignant neoplasm of left breast in female, estrogen receptor negative, unspecified site of breast (HCC) 11/02/2023 12:45 PM EDT Scheduled Referrals Name Type Priority Associated Diagnoses Orde r Schedule SURGERY REFERRAL OP Referral Within 10 da ys (routine) Malignant neoplasm of left female breast, unspecified estrogen receptor status, unspecified site of breast (HCC) Ordered: 10/11/2023 Health Maintenance Due Date Last Done Comments DXA Scan 1940 Albumin/Creatinine Ratio 09/16/1958 COVID-19 Vaccine ( season) 2023 09/16/2020, 08/15/2020 HbA1c 05/06/2023 11/04/2022 Depression Screening 10/10/2024 10/11/2023 Diabetic Foot Exam 10/10/2024 10/11/2023 Diabetic Eye Exam 10/19/2024 10/20/2023, (Done elsewhere), 08/26/2023, Additional history exists GFR 10/27/2024 10/28/2023, 0507/2023, 11/04/2022, Additional history exists DTaP,Tdap,and Td Vaccines (3 [...] documented as of this encounter Medical Devices Not on filedocumented as of this encounter Visit Diagnoses Diagnosis Malignant neoplasm of left female breast, unspecified estrogen receptor status, unspecified site of breast (HCC)- Primary 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, without long-term current use of insulin, unspecified laterality, unspecified retinopathy severity (HCC) Postmenopausal status, age-related Asymptomatic postmenopausal status (age-related) (natural) Malignant neoplasm of left breast in female, estrogen receptor negative (HCC)- Primary Malignant neoplasm of left breast in female, estrogen receptor negative, unspecified site of breast (HCC) documented in this encounter Care Teams Deployment Technician Relationship Specialty Start Date End Date Toby Bell MD [address] [place] [address] PCP - General Family Medicine 02/08/22 documented as of this encounter"
--- OUTSIDE RECORDS SUMMARY | 2023-12-07 20:34 | External Medical Summary | Summary of Care ---
Author Name Unknown Organization [facility] Address [address] [place] [address] Phone [phone] Care Team Providers Care Teletypesetter Operator Name Role Phone Toby Bell MD Primary Care Provider [phone]- [phone] Reason for Visit * Reason Onset Date Comments Precert Future 10/26/2023 Keytruda, taxol, carbo--> keytruda, AC Encounter Details Date Type Department Care Team (Late st Contact Info) Description 10/26/2023 Telephone Hematology/Oncology Treatment, [place] [address] [place] [address] Nas Palacios MD [address] [place] [address] Precert Future (Keytruda, taxol, carbo--> ... Allergies Active Allergy Reactions Criticality Noted Date Comments Guaifenesin & Derivatives 10/11/2000 Daily--hives Lisinopril Edema face/lips/tongue High 08/05/2021 documented as of this encounter (statuses as of 11/01/2023) Medications Medication Sig Dispensed Refills Start Date [...] Additional Information Patient not taking.Reported on 10/27/2023 documented as of this encounter (statuses as of 11/01/2023) Active Problems Problem Noted Date Diagnosed Date [...] as of this encounter (statuses as of 11/01/2023) Immunizations Name Administration Dates Next Due COVID-19 [...] encounter Miscellaneous Notes * Telephone Encounter - Roslyn Renae OSA - 11/01/2023 8:17 AM EDT Pt is scheduled and aware * Telephone Encounter - Roslyn Renae OSA - 10/31/2023 9:01 AM EDT Called pt answered and then hung up will call again in a few * Telephone Encounter - Marielos Mondragon RN - 10/31/2023 8:42 AM EDT Scheduling: please call patient to schedule for after 11/02/23 - labs "CBCd, CMP, TSH/T4"- can be day of or day prior to treatment - 3 hour appt "C1D1 keytruda/ carbo/ taxol" (Suzanne) * Telephone Encounter - Marielos Mondragon RN - 10/26/2023 3:15 PM EDT Order received for keytruda, carbo, taxol--> keytruda, AC [place] plan built. Waiting for auth. Consent signed 10/26/23. Nurse education 10/28/23. Will need hep B labs. Echo 11/02/23. Patient will need port- scheduled with gen surg 11/02/23. documented in this encounter Plan of Treatment Upcoming Encounters Date Type Department Care Team (Latest Contact Info) Description 11/02/2023 12:45 PM EDT Hospital Encounter OR [facility], Operating Room [facility] [address] [place] [phone] Mariah Abdul MD [address] [place] [address] 11/02/2023 12:45 PM EDT - 11/02/2023 2:00 PM EDT Surgery OR [facility], Operating Room [facility] [address] [place] [phone] Mariah Abdul MD [address] [place] [address] INSERT TUNNELED CENTRAL VENOUS ACCESS WITH SUBQ PORT 11/07/2023 9:50 AM EDT Laboratory Laboratory [facility] Vasquez [address] [place], [place] [phone] [facility] [address] [place] [address] 11/07/2023 11:00 AM EDT Hem/Onc Treatment Hematology/Oncology Treatment, [place] [address] [place] [phone] 11/08/2023 9:00 AM EDT Cardiac Studies Cardiac Studies, [facility] [address] [place] [address] 02/03/2024 10:30 AM EDT Telemedicine Genetics HemOnc, [facility] [address] [place] [address] [place], [place] [address] [place] [address] 03/16/2024 2:40 PM EDT Office Visit Family [facility] [address] [place] [phone] Toby Bell MD [address] [place] [address] 04/10/2024 10:30 AM EST Imaging Radiology, [facility] [address] [place] [address], [place] [address] Scheduled Orders Name Type Priority Associated Diagnoses Orde r Schedule CBC WITH WBC DIFFERENTIAL Lab STAT Malignant neoplasm of upper-inner quadrant of left breast in female, estrogen receptor negative (HCC) Every Week for 52 Occurrences starting 10/26/2023 until 10/25/2024, 1 completed COMPREHENSIVE METABOLIC PANEL Lab STAT Malignant neoplasm of upper-inner quadrant of left breast in female, estrogen receptor negative (HCC) Every Week for 52 Occurrences starting 10/26/2023 until 10/25/2024, 1 completed TSH WITH FREE T4 IF INDICATED Lab STAT Malignant neoplasm of upper-inner quadrant of left breast in female, estrogen receptor negative (HCC) Every 3 Weeks for 17 Occurrences starting 10/26/2023 until 10/25/2024, 1 completed Scheduled Procedures Name Priority Associated Diagnoses Date/Ti me INSERT TUNNELED CENTRAL VENOUS ACCESS WITH SUBQ PORT Malignant neoplasm of left breast in female, estrogen receptor negative, unspecified site of breast (HCC) 11/02/2023 12:45 PM EDT Health Maintenance Due Date Last Done Comments DXA Scan 1940 Albumin/Creatinine Ratio 09/16/1958 COVID-19 Vaccine ( season) 2023 09/16/2020, 08/15/2020 HbA1c 05/06/2023 11/04/2022 Depression Screening 10/10/2024 10/11/2023 Diabetic Foot Exam 10/10/2024 10/11/2023 Diabetic Eye Exam 10/19/2024 10/20/2023, (Done elsewhere), 08/26/2023, Additional history exists GFR 10/27/2024 10/28/2023, 09/21, 11/04/2022, Additional history exists DTaP,Tdap,and Td Vaccines [...] Not on filedocumented as of this encounter Results * HEPATITIS B CORE ANTIBODIES IGG AND IGM (10/28/2023 11:09 AM EDT) Hepatitis B Core Antibodies IgG and IgM Negative Negative 10/28/2023 8:59 PM EDT [facility] Blood Venous blood specimen / Unknown Venipuncture / Unknown 10/28/2023 11:09 AM EDT 10/28/2023 11:09 AM EDT Nas Palacios MD LAB BLOOD [facility] [address] [place] [address] * HEPATITIS B SURFACE ANTIGEN (10/28/2023 11:09 AM EDT) Pathologist [facility] Hepatitis B Surface Antigen Negative Negative 10/28/2023 8:59 PM EDT [facility] Blood Venous blood specimen / Unknown Venipuncture / Unknown 10/28/2023 11:09 AM EDT 10/28/2023 11:09 AM EDT Nas Palacios MD LAB BLOOD [facility] [facility] [address] [place] [address] * HEPATITIS B SURFACE ANTIBODY (10/28/2023 11:09 AM EDT) Pathologist [facility] Hepatitis B Surface Antibody, Quantitative <3.5 mIU/mL 10/28/2023 8:59 PM EDT [facility] Hepatitis B Surface Antibody, Qualitative Negative 10/28/2023 8:59 PM EDT [facility] Hepatitis B Surface Antibody, Interpretation NOT immune to Hepatitis B Virus 10/28/2023 8:59 PM EDT [facility] Comment: POSITIVE: >=11.5 mIU/mL INDETERMINATE: 8.5-<11.5 mIU/mL NEGATIVE: <8.5 mIU/mL Blood Venous blood specimen / Unknown Venipuncture / Unknown 10/28/2023 11:09 AM EDT 10/28/2023 11:09 AM EDT Nas Palacios MD LAB BLOOD [facility] [address] [place] [address] * TSH WITH FREE T4 IF INDICATED (10/28/2023 11:09 AM EDT) Pathologist [facility] TSH 1.91 0.27 - 4.20 uIU/mL 10/28/2023 8:33 PM EDT [facility] Blood Venous blood specimen / Unknown Venipuncture / Unknown 10/28/2023 11:09 AM EDT 10/28/2023 11:09 AM EDT Nsa Palacios MD LAB BLOOD [facility] [address] [place] [address] * (ABNORMAL) COMPREHENSIVE METABOLIC PANEL (10/28/2023 11:09 AM EDT) BUN 15 6 - 20 mg/dL 10/28/2023 11:38 AM EDT [place] [address] Creatinine 0.8 0.5 - 1.0 mg/dL 10/28/2023 11:38 AM EDT [address] Estimated Glomerular Filtration Rate 75 >=60 mL/min 10/28/2023 11:38 AM EDT [address] Comment:eGFR is calculated b ased on the CKD-EPI 2020 equation Sodium 141 135 - 146 mmol/L 10/28/2023 11:38 AM T [address] Potassium 4.2 3.5 - 5.1 mmol/L 10/28/2023 11:38 AM T [facility] 56 Chloride 108(H) 98 - 107 mmol/L 10/28/2023 11:38 AM EDT [address] CO2 23 22 - 32 mmol/L 10/28/2023 11:38 AM EDT [address] Anion Gap 10 7 - 15 mmol/L 10/28/2023 11:38 AM T [facility] 56 Glucose 110 70 - 120 mg/dL 10/28/2023 11:38 AM EDT [facility] 56 Albumin 4.1 3.8 - 5.0 g/dL 10/28/2023 11:38 AM EDT [facility] 56 AST 21 10 - 35 U/L 10/28/2023 11:38 AM EDT [facility] 56 Alkaline Phosphatase 68 35 - 130 U/L 10/28/2023 11:38 AM T [facility] 56 Bilirubin, Total 0.3 <=1.2 mg/dL 10/28/2023 11:38 AM T [facility] 56 Calcium 8.9 8.4 - 10.2 mg/dL 10/28/2023 11:38 AM EDT [facility] 56 Protein 6.8 6.0 - 8.3 g/dL 10/28/2023 11:38 AM EDT [facility] 56- ALT 7(L) 10 - 35 U/L 10/28/2023 11:38 AM EDT [facility] 56 Blood Venous blood specimen / Unknown Venipuncture / Unknown 10/28/2023 11:09 AM EDT 10/28/2023 11:09 AM EDT Nas Palacios MD LAB BLOOD [facility] [facility] [address] [place] [address] documented in this encounter Visit Diagnoses Diagnosis Malignant neoplasm of upper-inner quadrant of left breast in female, estrogen receptor negative (HCC)- Primary Malignant neoplasm of left breast in female, estrogen receptor negative (HCC)- Primary Malignant neoplasm of left breast in female, estrogen receptor negative, unspecified site of breast (HCC) documented in this encounter Care Teams Teletypesetter Operator Relationship Specialty Start Date End Date Toby Bell MD [address] [place] [address] PCP - General Family Medicine 02/08/22 documented as of this encounter
--- OUTSIDE RECORDS SUMMARY | 2023-12-07 20:34 | External Medical Summary | Summary of Care ---
Author Name Unknown Organization [facility] Address [address] [place] [address] Phone [phone] Care Team Providers Care Staff Air Tactical Officer Name Role Phone Toby Bell MD Primary Care Provider [phone]- [phone] Reason for Visit * Reason Comments pre-op exam Encounter Details Date Type Department Care Team (Late st Contact Info) Description 10/31/2023 11:40 AM EDT Office Visit [facility] [address] [place] [address] SeptemberFavian MD [address] [place] [address] Malignant neoplasm of lower-outer quadrant of left breast of female, estrogen receptor negative (HCC)*; HTN, goal below 140/90; Dyslipidemia; Type 2 diabetes mellitus with hemoglobin A1c goal of less than 8.0% (HCC); Pre-op evaluation Allergies Active Allergy Reactions Criticality Noted Date [...] Sign Reading Time Taken Comments Blood Pressure 150/86 10/31/2023 11:30 AM EDT Pulse 72 10/31/2023 11:30 AM EDT Temperature 36.9 C (98.4 F) 10/31/2023 11:30 AM E DT Respiratory Rate 16 10/31/2023 11:30 AM EDT Oxygen Saturation - - Inhaled Oxygen Concentration - - Weight 63 kg (139 lb) 10/31/2023 11:30 AM EDT Height 170.2 cm (5' 7") 10/31/2023 11:30 AM EDT Body Mass Index 21.77 10/31/2023 11:30 AM EDT documented in this encounter Progress Notes * Favian Loomis MD - 10/31/2023 11:39 AM EDT Images from the original note were not included. 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 There was some confusion as to surgical plan as patient initially had lumpectomy scheduled in the slot and it was now scheduled for port pl acement. Per discussion with patient and niece today they are no longer in agreement with the plan for chemotherapy followed by surgical intervention and would like to proceed with a lumpectomy instead. I will reach out to General Surgery and Oncology to notify them of the patient's wishes to change plan moving forward. I did discuss with the patient that it may still make sense to have a port placed on 11/02/2023 given the likely need for chemotherapy whether that is before or after lumpectomy. Patient is healthy in all of her risk factors are under good control and therefore would be appropriate to proceed with both lumpectomy and port placement when these could be scheduled based on recommendations of surgery and oncology. 1. Malignant neoplasm of lower-outer quadrant of left breast of female, estrogen receptor negative (HCC) 2. HTN, goal below 140/90 3. Dyslipidemia 4. Type 2 diabetes mellitus with hemoglobin A1c goal of less than 8.0% (HCC) 5. Pre-op evaluation Wrap-Up Follow up as needed. 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 Patient recently diagnosed with left breast cancer measuring 31 x 19 x 22 mm located at 10:00 a.m. 7 cm from the nipple. 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 Per Oncology notes this should be treated as triple negative breast cancer. Patient currently scheduled for port placement with Dr. Abdul of General Surgery on 11/02/2023. There is some question about plan moving forward as patient has decided with the help of her niece that she would prefer to proceed with a lumpectomy as was previously scheduled in the 11/02/2023 times slot. She did have a discussion with Dr. Palacios about chemotherapy followed by surgery, however, she feels the length of chemotherapy prior to surgery is to long (12-24 weeks) and would prefer to proceed with surgery 1st. We did review her past medical history and medications. She currently takes atorvastatin 40 mg daily for hyperlipidemia and diabetes and losartan 75 mg daily for hypertension. Most recent lab work iswithin normal limits. EKG is sinus rhythm. She is active and denies chest pain or shortness of breath. Past Medical History: Diagnosis Date Macular degeneration Undiagnosed cardiac murmurs Past Surgical History: Procedure Laterality Date CV STRESS (CARDIOLYTE) 07/06/99 Normal INFORMATION varicose veins stripped b/l INJECT DX/THER SUBSTANCE INTERLAMINAR LUMBAR/SACRAL W IMAGE GUIDE 04/22/2022 INJECTION SPINE LUMBAR OR SACRAL performed by Ad Villalba DO at OR [facility] MISCELLANEOUS ORDER removed bone palate in order to get dentures Family History Problem Relation Name Age of Onset Diabetes Mother Heart Disorder Mother Bypass Other (Hyperlipidemia) Mother Neurological Disorder Father Multiple sclerosis Diabetes Grandmother (Maternal) Heart Disorder Grandmother (Maternal) Heart Disorder Aunt (Unspecified) Heart Disorder Uncle (Unspecified) Heart Disorder Uncle (Unspecified) Heart Disorder Uncle (Unspecified) Heart Disorder Uncle (Unspecified) ND Cancer Uncle (Unspecified) throat Cancer Uncle (Unspecified) Cancer Uncle (Unspecified) Cancer Uncle (Unspecified) Other (Other) Son Lupus Social History Socioeconomic History Marital status: Spouse name: Not on file Number of children: 2 Years of education: Not on file Highest education level: Not on file Occupational History 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 Tobacco Use Smoking status: Never Passive exposure: Never Smokeless tobacco: Never Vaping Use Vaping status: Never Used Substance and Sexual Activity Alcohol use: No Drug use: No Sexual activity: Yes Partners: Male Other Topics Concern Not on file Social History Narrative Not on file Social Determinants of Health Financial Resource Strain: Not on file Food Insecurity: Patient Declined (10/11/2023) Hunger Vital Sign Worried About Running Out of Food in the Last Year: Patient declined Ran Out of Food in the Last Year: Patient declined Transportation Needs: Not on file Physical Activity: Not on file Stress: Not on file Social Connections: Not on file Intimate Partner Violence: Not on file Housing Stability: Not on file Review of patient's allergies indicates: Allergen Reactions Lisinopril Edema face/lips/tongue Guaifenesin & Derivatives Dristan--hives Physical Exam Vitals: 10/31/23 1130 Temp: 36.9 C (98.4 F) Pulse: 72 Resp: 16 BP: 150/86 BMI: 21.77 Physical Exam Physical Exam Vitals reviewed. Constitutional: General: She is not in acute distress. Cardiovascular: Rate and Rhythm: Normal rate and regular rhythm. Heart sounds: No murmur heard. Pulmonary: Effort: Pulmonary effort is normal. No respiratory distress. Breath sounds: Normal breath sounds. No wheezing. Musculoskeletal: Right lower leg: No edema. Left lower leg: No edema. Neurological: General: No focal deficit present. Mental Status: She is alert. Psychiatric: Mood and Affect: Mood normal. Behavior: Behavior normal. Time: I spent a total of 30-39 minutes (exact time 35 mins) on the date of service in preparation, delivery, and documentation of the care provided to the patient excluding any time spent in the performance of separately billed services. This note has been completed in part utilizing [employer] Speech Voice Recognition Software. Due to technical limitations of the software, grammatical errors, random word insertions, prounoun errors, and incomplete sentences may occur. Any formal questions or concerns about the content, text, or information contained within the body of this dictation should be directly addressed to the provider for clarification. documented in this encounter Nursing Notes * Peyton Rodriguez LPN - 10/31/2023 11:33 AM EDT The patient has been properly identified by confirmation of name and date of . Chief Complaint Patient presents with pre-op exam documented in this encounter Plan of Treatment Upcoming Encounters Date Type Department Care Team (Latest Contact Info) Description 11/02/2023 12:45 PM EDT Hospital Encounter OR [facility], Operating Room [facility] [address] [place] [phone] Mariah Abdul MD [address] [place] [address] 11/02/2023 12:45 PM EDT - 11/02/2023 2:00 PM EDT Surgery OR [facility], Operating Room [facility] [address] [place] [phone] Mariah Abdul MD [address] [facility] [address] INSERT TUNNELED CENTRAL VENOUS ACCESS WITH SUBQ PORT 11/08/2023 9:00 AM EDT Cardiac Studies [facility] [place] [address] 02/03/2024 10:30 AM EDT Telemedicine Genetics HemOnc, [facility] [address] [place] [address] [place], [place] [address] [place], [place] [id number] 03/16/2024 2:40 PM EDT Office Visit [facility] [address] [place] [phone] Toby Bell MD [address] [place] [address] 04/10/2024 10:30 AM EST Imaging Radiology, [address] [address] Scheduled Procedures Name Priority Associated Diagnoses Date/Ti [...] Visit Diagnoses Diagnosis Malignant neoplasm of left breast in female, estrogen receptor negative (HCC)- Primary Malignant neoplasm of lower-outer quadrant of left breast of female, estrogen receptor negative (HCC)- Primary HTN, goal below 140/90 Unspecified essential hypertension Dyslipidemia Other and unspecified hyperlipidemia Type 2 diabetes mellitus with hemoglobin A1c goal of less than 8.0% (HCC) Pre-op evaluation Preoperative examination, unspecified Malignant neoplasm of left breast in female, estrogen receptor negative, unspecified site of breast (HCC) documented in this encounter Care Teams Staff Air Tactical Officer Relationship Specialty Start Date End Date Tboy Bell MD [address] [place] [address] PCP - General Family Medicine 02/08/22 documented as of this encounter
--- OUTSIDE RECORDS SUMMARY | 2023-12-07 20:34 | External Medical Summary | Summary of Care ---
Author Name Unknown Organization [facility] Address [address] [place] [address] Phone [phone] Care Team Providers Care Director Of Student Life Name Role Phone Toby Bell MD Primary Care Provider +1- [phone] Reason for Visit * Reason Onset Date Comments Precert Future 10/26/2023 Keytruda, taxol, carbo--> keytruda, AC Encounter Details Date Type Department Care Team (Late st Contact Info) Description 10/26/2023 Telephone Hematology/Oncology Treatment, [place] [address] [place] [address] Nas Palacios MD [address] [place] [address] Precert Future (Keytruda, taxol, carbo--> ... Allergies [...] encounter Miscellaneous Notes * Telephone Encounter - Marielos Mondragon RN - 10/31/2023 8:42 AM EDT Scheduling: please call patient to schedule for after 11/02/23 - labs "CBCd, CMP"- can be day of or day prior to treatment - 3 hour appt "C1D1 keytruda/ carbo/ taxol" (Suzanne) * Telephone Encounter - Marielos Mondragon RN - 10/26/2023 3:15 PM EDT Order received for keytruda, carbo, taxol--> keytruda, AC [place] plan built. Waiting for auth. Consent signed 10/26/23. Nurse education 10/28/23. Will need hep B labs. Echo 11/02/23. Patient will need port- scheduled with gen surg 11/02/23. documented in this encounter Plan of Treatment Upcoming Encounters Date Type Department Care Team (Latest Contact Info) Description 10/31/2023 11:40 AM EDT Office Visit Located Within [facility] [address] [place] [facility] [place] [phone] SeptemberFavian MD [address] [place] [facility] [place] [address] 11/02/2023 12:45 PM EDT Hospital Encounter OR [facility], Operating Room [facility] [address] [place] [phone] Mariah Abdul MD [address] [place] [address] 11/02/2023 12:45 PM EDT - 11/02/2023 2:00 PM EDT Surgery OR [facility], Operating Room [facility] [address] [place] [phone] Mariah Abdul MD [address] [place] [address] INSERT TUNNELED CENTRAL VENOUS ACCESS WITH SUBQ PORT 11/08/2023 9:00 AM EDT Cardiac Studies Cardiac Studies, [facility] [address] [place] [address] 02/03/2024 10:30 AM EDT Telemedicine Genetics HemOnc, [place] [address] [place] [address] [place], [place] [address] [place] [address] 03/16/2024 2:40 PM EDT Office Visit Located Within [facility] [address] [facility] [phone] Toby Bell MD [address] [facility] [place] [id number] 04/10/2024 10:30 AM [facility] Imaging Radiology, [address], [place] [address] Scheduled Orders Name Type Priority Associated Diagnoses [...] IGG AND IGM (10/28/2023 11:09 AM EDT) Pathologist [facility] Hepatitis B Core Antibodies IgG and IgM Negative Negative 10/28/2023 8:59 PM EDT LABORATORY [facility] Blood Venous blood specimen / Unknown Venipuncture / Unknown 10/28/2023 11:09 AM EDT 10/28/2023 11:09 AM EDT Nas Palacios MD LAB BLOOD ORDERA BLES Performing Organization Address City/[facility]/ZIP Co de Phone Number LABORATORY [facility] [address] [place] [address] * HEPATITIS B SURFACE ANTIGEN (10/28/2023 11:09 AM EDT) Pathologist [facility] Hepatitis B Surface Antigen Negative Negative 10/28/2023 8:59 PM EDT LABORATORY [facility] Blood Venous blood specimen / Unknown Venipuncture / Unknown 10/28/2023 11:09 AM EDT 10/28/2023 11:09 AM EDT Nas Palacios MD LAB BLOOD ORDERA BLES Performing Organization Address City/[facility]/ZIP Co de Phone Number LABORATORY [facility] [address] [place] [address] * HEPATITIS B SURFACE ANTIBODY (10/28/2023 11:09 AM EDT) [facility] Hepatitis B Surface Antibody, Quantitative <3.5 mIU/mL 10/28/2023 8:59 PM EDT LABORATORY [facility] Hepatitis B Surface Antibody, Qualitative Negative 10/28/2023 8:59 PM EDT LABORATORY [facility] Hepatitis B Surface Antibody, Interpretation NOT immune to Hepatitis B Virus 10/28/2023 8:59 PM EDT LABORATORY [facility] Comment: POSITIVE: >=11.5 mIU/mL INDETERMINATE: 8.5-<11.5 mIU/mL NEGATIVE: <8.5 mIU/mL Blood Venous blood specimen / Unknown Venipuncture / Unknown 10/28/2023 11:09 AM EDT 10/28/2023 11:09 AM EDT Nas Palacios MD LAB BLOOD ORDERA BLES Performing Organization Address City/[facility] Co de Phone Number LABORATORY [place] [address] [place] [address] * TSH WITH FREE T4 IF INDICATED (10/28/2023 11:09 AM EDT) [facility] TSH 1.91 0.27 - 4.20 uIU/mL 10/28/2023 8:33 PM EDT LABORATORY [facility] Blood Venous blood specimen / Unknown Venipuncture / Unknown 10/28/2023 11:09 AM EDT 10/28/2023 11:09 AM EDT Nas Palacios MD LAB BLOOD ORDERA BLES Performing Organization Address City/[facility]/ZIP Co de Phone Number LABORATORY [facility] [address] [place] [address] * (ABNORMAL) COMPREHENSIVE METABOLIC PANEL (10/28/2023 11:09 AM EDT) [facility] BUN 15 6 - 20 mg/dL 10/28/2023 11:38 AM EDT LABORATORY [facility] 56-02 Creatinine 0.8 0.5 - 1.0 mg/dL 10/28/2023 11:38 AM EDT LABORATORY [facility] 56-02 Estimated Glomerular Filtration Rate 75 >=60 mL/min 10/28/2023 11:38 AM T [facility] 56 Comment:eGFR is calculated b ased on the CKD-EPI 2020 equation Sodium 141 135 - 146 mmol/L 10/28/2023 11:38 AM T [address] Potassium 4.2 3.5 - 5.1 mmol/L 10/28/2023 11:[address] Chloride 108(H) 98 - 107 mmol/L 10/28/2023 11:38 AM EDT [address] CO2 23 22 - 32 mmol/L 10/28/2023 11:38 AM T [address] Anion Gap 10 7 - 15 mmol/L 10/28/2023 11:[address] Glucose 110 70 - 120 mg/dL 10/28/2023 11:[address] Albumin 4.1 3.8 - 5.0 g/dL 10/28/2023 11:[address] AST 21 10 - 35 U/L 10/28/2023 11:[address] Alkaline Phosphatase 68 35 - 130 U/L 10/28/2023 11:[address] Bilirubin, Total 0.3 <=1.2 mg/dL 10/28/2023 11:[address] Calcium 8.9 8.4 - 10.2 mg/dL 10/28/2023 11:[address] Protein 6.8 6.0 - 8.3 g/dL 10/28/2023 11:38 AM T [address] ALT 7(L) 10 - 35 U/L 10/28/2023 11:[address] Blood Venous blood specimen / Unknown Venipuncture / Unknown 10/28/2023 11:09 AM EDT 10/28/2023 11:09 AM EDT Nas Palacios MD LAB BLOOD ORDERA BLES [address] [place] [address] documented in this encounter Visit Diagnoses Diagnosis Malignant neoplasm of upper-inner quadrant of left breast in female, estrogen receptor negative (HCC)- Primary Malignant neoplasm of left breast in female, estrogen receptor negative (HCC)- Primary Malignant neoplasm of left breast in female, estrogen receptor negative, unspecified site of breast (HCC) documented in this encounter Care Teams Director Of Student Life Relationship Specialty Start Date End Date Toby Bell MD [address] [place] [address] PCP - General Family Medicine 02/08/22 documented as of this encounter
--- OUTSIDE RECORDS SUMMARY | 2023-12-07 20:34 | External Medical Summary | Summary of Care ---
Author Name Unknown Organization [facility] Address [address] [place] [address] Phone [phone] Care Team Providers Care Paper And Pulp Mill Worker Name Role Phone Toby Bell MD Primary Care Provider +1- [phone] Encounter Details Date Type Department Care Team (Late st Contact Info) Description 10/31/2023 Telephone General Surgery, [facility] [address] [place] [address] Mariah Abdul MD [address] [place] [address] Allergies Active Allergy Reactions Criticality Noted Date [...] encounter Miscellaneous Notes * Telephone Encounter - Mariah Abdul MD - 10/31/2023 1:45 PM EDT Discussed with pt and Adina. Explained chemotherapy and the pros/ cons of it to the best of my ability. Lumpectomy and radiation are a given - only question is if it occurs before or after chemotherapy. Current plan for which she is in agreement is for port on Tuesday, followed by chemotherapy and then surgery. documented in this encounter Plan of Treatment Upcoming Encounters Date Type Department Care Team (Latest Contact Info) Description 11/02/2023 12:45 PM EDT Hospital Encounter OR [facility], Operating Room [facility] [address] [place] [phone] Mariah Abdul MD [address] [place] [address] 11/02/2023 12:45 PM EDT - 11/02/2023 2:00 PM EDT Surgery OR [facility], Operating Room [facility] [address] [place] [phone] Mariah Abdul MD [address] [place] [address] INSERT TUNNELED CENTRAL VENOUS ACCESS WITH SUBQ PORT 11/08/2023 9:00 AM EDT Cardiac Studies Cardiac Studies, [facility] [address] [place] [address] 02/03/2024 10:30 AM EDT Telemedicine Genetics HemOnc, [facility] [address] [place] [address] [place], [place] [address] [place] [address] 03/16/2024 2:40 PM EDT Office Visit Family [facility] [address] [place] [phone] Toby Bell MD [address] [place] [address] 04/10/2024 10:30 AM EST Imaging Radiology, [address] [place] [address] Scheduled Procedures Name Priority Associated Diagnoses Date/Ti [...] Not on filedocumented as of this encounter Care Teams Paper And Pulp Mill Worker Relationship Specialty Start Date End Date Toby Bell MD [address] [place] [address] PCP - General Family Medicine 02/08/22 documented as of this encounter
--- OUTSIDE RECORDS SUMMARY | 2023-12-07 20:34 | External Medical Summary | Summary of Care ---
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 Family History Problem Relation Name Age of Onset Diabetes Mother Heart Disorder Mother Bypass Other (Hyperlipidemia) Mother Neurological Disorder Father Multiple sclerosis Diabetes Grandmother (Maternal) Heart Disorder Grandmother (Maternal) Heart Disorder Aunt (Unspecified) Heart Disorder Uncle (Unspecified) Heart Disorder Uncle (Unspecified) Heart Disorder Uncle (Unspecified) Heart Disorder Uncle (Unspecified) NE Cancer Uncle (Unspecified) throat Cancer Uncle (Unspecified) Cancer Uncle (Unspecified) Cancer Uncle (Unspecified) Other (Other) Son Lupus Social History Socioeconomic History Marital status: Spouse name: Not on file Number of children: 2 Years of education: Not on file Highest education level: Not on file Occupational History 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 Due to technical [...] [facility], Operating Room [facility] [address] [place] [phone] Mariah Abdul MD [address] [place] [address] 11/02/2023 12:45 PM EDT - 11/02/2023 2:00 PM EDT Surgery OR [facility], Operating Room [facility] [address] [place] [phone] Mariah Abdul MD [address] [facility] [place] [address] INSERT TUNNELED CENTRAL VENOUS ACCESS WITH SUBQ PORT 11/08/2023 9:00 AM EDT Cardiac Studies Cardiac Studies, [facility] [address] [facility] [place] [address] 02/03/2024 10:30 AM EDT Telemedicine Genetics HemOnc, [facility] [address] [place] [address] [place], [place] [address] [place], [place] [address] 03/16/2024 2:40 PM EDT Office Visit [facility] [address] [place] [phone] Toby Bell MD [address] [place] [address] 04/10/2024 10:30 AM EST Imaging Radiology, [address] [address] Scheduled Procedures Name Priority Associated Diagnoses Date/Ti [...] (HCC) documented in this encounter Care Teams Fish Header Relationship Specialty Start Date End Date Toby Bell MD [address] [place] [address] PCP - General Family Medicine 02/08/22 documented as of this encounter
--- OUTSIDE RECORDS SUMMARY | 2023-12-07 20:34 | External Medical Summary | Summary of Care ---
Author Name Unknown Organization [facility] Address [address] [place] [address] Phone [phone] Care Team Providers Care Shop Superintendent Name Role Phone Toby Bell MD Primary Care Provider +1- [phone] Encounter Details Date Type Department Care Team (Late st Contact Info) Description 10/31/2023 Telephone General Surgery, [facility] [address] [place] [address] Mariah Abdul MD [address] [place] [address] Allergies Active Allergy Reactions Criticality Noted Date [...] encounter Miscellaneous Notes * Telephone Encounter - Favian Loomis MD - 10/31/2023 2:36 PM EDT Noted. Thanks. Favian Loomis MD * Telephone Encounter - Mariah Abdul MD [...] 11/02/2023 12:45 PM EDT Hospital Encounter OR [facility], Operating Room [facility] [address] [place] [phone] Mariah Abdul MD [address] [place] [address] 11/02/2023 12:45 PM EDT - 11/02/2023 2:00 PM EDT Surgery OR [facility], Operating Room [facility] [address] [place] [phone] Mariah Abdul MD [address] [place] [address] INSERT TUNNELED CENTRAL VENOUS ACCESS WITH SUBQ PORT 11/08/2023 9:00 AM EDT Cardiac Studies Cardiac Studies, [facility] [address] [place] [address] 02/03/2024 10:30 AM EDT Telemedicine Genetics HemOnc, [facility] [address] [place] [address] [place]abel [place], [place] [address] [place] [address] 03/16/2024 2:40 PM EDT Office Visit [facility] [address] [place] [phone] Toby Bell MD [address] [place] [address] 04/10/2024 10:30 AM EST Imaging Radiology, [address] [address] Scheduled Procedures Name Priority Associated Diagnoses Date/Ti [...] filedocumented as of this encounter Care Teams Shop Superintendent Relationship Specialty Start Date End Date Toby Bell MD [address] [place], [place] [phone] PCP - General Family Medicine 02/08/22 documented as of this encounter
--- OUTSIDE RECORDS SUMMARY | 2023-12-07 20:34 | External Medical Summary | Summary of Care ---
Author Name Unknown Organization [facility] Address [address] [place] [address] Phone [phone] Care Team Providers Care Rn Telemetry Name Role Phone Toby Bell MD Primary Care Provider +1- [phone] Reason for Visit * Reason Onset Date Comments Information 11/03/2023 Decadron reminde r Encounter Details Date Type Department Care Team (Late st Contact Info) Description 11/03/2023 Telephone Hematology/Oncology Treatment, [place] [address] [place] [address] Nas Palacios MD [address] [place] [address] Information (Decadron reminder) Allergies Active Allergy Reactions Criticality Noted Date Comments Guaifenesin & Derivatives 10/11/2000 Daily--hives Lisinopril Edema face/lips/tongue High 08/05/2021 documented as of this encounter (statuses as of 11/03/2023) Medications Medication Sig Dispensed Refills Start Date [...] as of this encounter (statuses as of 11/03/2023) Active Problems Problem Noted Date Diagnosed Date [...] as of this encounter (statuses as of 11/03/2023) Immunizations Name Administration Dates Next Due COVID-19 [...] Telephone Encounter - Marielos Mondragon RN - 11/03/2023 2:55 PM EDT Patient is scheduled 11/07/23 for C1D1 keytruda/ carbo/ taxol. Called patient, confirmed she picked this up from the pharmacy. Reviewed decadron instructions, sheverbalized understanding. Disp Refills Start End dexAMETHasone 4 MG Oral Tablet 40 Tablet 0 10/26/2023 -- Si mg (3 tab) 12 and 6 hours before chemotherapy documented in this encounter Plan of Treatment Upcoming Encounters Date Type Department Care Team (Late st Contact Info) Description 11/07/2023 9:50 AM EDT Laboratory Laboratory [facility] [address] [place], [place] [phone] [place], Lab Scenery [address] [facility] [address] 11/07/2023 11:00 AM EDT Hem/Onc Treatment Hematology/Oncology Treatment, [place] [address] [place] [phone] 11/08/2023 9:00 AM EDT Cardiac Studies Cardiac Studies, [facility] [address] [place] [address] 02/03/2024 10:30 AM EDT Telemedicine Genetics HemOnc, [facility] [address] [place] [address] [place], [place] [address] [place], [place] [phone] 03/16/2024 2:40 PM EDT Office Visit Family [facility] [address] [place] [address] Toby Bell MD [address] [place] [address] 04/10/2024 10:30 AM EST Imaging Radiology, [facility] [address] [facility] [place], [place] [address] Health Maintenance Due Date Last Done Comments [...] this encounter Medical Devices Implanted Type Area Rn Renal Device Identifier Shelf Expiration Date Model / Serial / Lot Port Power Mri [id number] Cath - [id number] Implanted:Qty: 1 on 11/02/2023 by Mariah Abdul MD at OR [facility] Right: Chest CR BARD : PERIPHERAL VASCULAR 08/20/2024 [id number] / / [id number] documented as of this encounter Advance Directives * Full Code (Latest Code Status on File) Date Activated Date Inactivated Comments 11/02/2023 11:37 AM 11/02/2023 6:38 PM This order reflects the patients wishes and were consensually agreed upon. Question Answer Comments Discussion of Advance Directives occurred with: Patient Care Teams Rn Telemetry Relationship Specialty Start Date End Date Toby Bell MD [address] [place] [facility] [place] [address] PCP - General Family Medicine 02/08/22 documented as of this encounter
--- OUTSIDE RECORDS SUMMARY | 2023-12-07 20:34 | External Medical Summary | Summary of Care ---
Author Name Unknown Organization [facility] Address [address] [place] [address] Phone [phone] Care Team Providers Care Correctional Officer Captain Name Role Phone Toby Bell MD Primary Care Provider +1- [phone] Reason for Visit * Reason Onset Date Comments Precert Future 10/26/2023 Keytruda, taxol, carbo--> keytruda, AC Encounter Details Date Type Department Care Team (Late st Contact Info) Description 10/26/2023 Telephone Hematology/Oncology Treatment, [place] [address] [place] [address] Nas Palacios MD [address] [place] [address] Precert Future (Keytruda, taxol, carbo--> ... Allergies [...] taxol" (Suzanne) * Telephone Encounter - Marielos Mondragon, RN - 10/26/2023 3:15 PM EDT Order received for tammy brocko, taxol--> keytruda, AC [place] plan built. Waiting for auth. Consent signed 10/26/23. Nurse education 10/28/23. Will need hep B labs. Echo 11/02/23. Patient will need port- scheduled with gen surg 11/02/23. documented in this encounter Plan of Treatment Upcoming Encounters Date Type Department Care Team (Latest Contact Info) Description 10/31/2023 11:40 AM EDT Office Visit [facility] [address] [place] [address] SeptemberFavian MD [address] [place] [address] 11/02/2023 12:45 PM EDT Hospital Encounter OR [facility], Operating Room [facility] [address] [place] [phone] Mariah Abdul MD [address] [place] [address] 11/02/2023 12:45 PM EDT - 11/02/2023 2:00 PM EDT Surgery OR [facility], Operating Room [facility] [address] [place] [phone] Mariah Abdul MD [address] [place] [address] INSERT TUNNELED CENTRAL VENOUS ACCESS WITH SUBQ PORT 11/08/2023 9:00 AM EDT Cardiac Studies Cardiac Studies, [facility] [address] [place] [address] 02/03/2024 10:30 AM EDT Telemedicine Genetics HemOnc, [facility] [address] [place] [address] Mabel Ford, [place] [address] [place] [address] 03/16/2024 2:40 PM EDT Office Visit [facility] [address] [place] [address] Toby Bell MD [address] [place] [address] 04/10/2024 10:30 AM [facility] Imaging Radiology, [address] [address] Scheduled Orders Name Type Priority Associated Diagnoses [...] Negative Negative 10/28/2023 8:[address] [facility] Blood Venous blood specimen / Unknown Venipuncture / Unknown 10/28/2023 11:09 AM EDT 10/28/2023 11:09 AM EDT Nas Palacios MD LAB BLOOD ORDERA BLES [facility]ATORY [facility] [address] [place], [place] [id number] * HEPATITIS B SURFACE ANTIGEN (10/28/2023 11:09 AM EDT) Hepatitis B Surface Antigen Negative Negative 10/28/2023 8:[address] [facility] Blood Venous blood specimen / Unknown Venipuncture / Unknown 10/28/2023 11:09 AM EDT 10/28/2023 11:09 AM EDT Nas Palacios MD LAB BLOOD ORDERA BLES Performing Organization Address City/[facility]/ZIP Co de Phone Number LABORATORY [facility] [address] [place] [address] * HEPATITIS B SURFACE ANTIBODY (10/28/2023 11:09 AM EDT) Hepatitis B Surface Antibody, Quantitative <3.5 mIU/mL 10/28/2023 8:[address] [facility] Hepatitis B Surface Antibody, Qualitative Negative 10/28/2023 8:[address] [facility] Hepatitis B Surface Antibody, Interpretation NOT immune to Hepatitis B Virus 10/28/2023 8:[address] [facility] Comment: POSITIVE: >=11.5 mIU/mL INDETERMINATE: 8.5-<11.5 mIU/mL NEGATIVE: <8.5 mIU/mL Blood Venous blood specimen / Unknown Venipuncture / Unknown 10/28/2023 11:09 AM EDT 10/28/2023 11:09 AM EDT Nas Palacios MD LAB BLOOD ORDERA BLES Performing Organization Address [facility] Co de Phone Number LABORATORY [facility] [address] [place] [address] * TSH WITH FREE T4 IF INDICATED (10/28/2023 11:09 AM EDT) TSH 1.91 0.27 - 4.20 uIU/mL 10/28/2023 8:[address] [facility] Blood Venous blood specimen / Unknown Venipuncture / Unknown 10/28/2023 11:09 AM EDT 10/28/2023 11:09 AM EDT Nas Palacios MD LAB BLOOD ORDERA BLES Performing Organization Address City/[facility]/ZIP Co de Phone Number LABORATORY [facility] [address] [place] [address] * (ABNORMAL) COMPREHENSIVE METABOLIC PANEL (10/28/2023 11:09 AM EDT) BUN 15 6 - 20 mg/dL 10/28/2023 11:38 AM [place] [address] Creatinine 0.8 0.5 - 1.0 mg/dL 10/28/2023 11:[address] Estimated Glomerular Filtration Rate 75 >=60 mL/min 10/28/2023 11:[address] Comment:eGFR is calculated b ased on the CKD-EPI 2020 equation Sodium 141 135 - 146 mmol/L 10/28/2023 11:[address] Potassium 4.2 3.5 - 5.1 mmol/L 10/28/2023 11:[address] Chloride 108(H) 98 - 107 mmol/L 10/28/2023 11:[address] CO2 23 22 - 32 mmol/L 10/28/2023 11:[address] Anion Gap 10 7 - 15 mmol/L 10/28/2023 11:[address] Glucose 110 70 - 120 mg/dL 10/28/2023 11:[address] Albumin 4.1 3.8 - 5.0 g/dL 10/28/2023 11:[address] AST 21 10 - 35 U/L 10/28/2023 11:[address] Alkaline Phosphatase 68 35 - 130 U/L 10/28/2023 11:[address] Bilirubin, Total 0.3 <=1.2 mg/dL 10/28/2023 11:[address] Calcium 8.9 8.4 - 10.2 mg/dL 10/28/2023 11:[address] Protein 6.8 6.0 - 8.3 g/dL 10/28/2023 11:38 AM [facility] 56 ALT 7(L) 10 - 35 U/L 10/28/2023 11:38 AM [facility] 56 Blood Venous blood specimen / Unknown Venipuncture / Unknown 10/28/2023 11:09 AM EDT 10/28/2023 11:09 AM EDT Nas Palacios MD LAB BLOOD ORDERA BLES LABORATORY [facility] [address] [place] [address] documented in this encounter Visit Diagnoses Diagnosis Malignant neoplasm of upper-inner quadrant of left breast in female, estrogen receptor negative (HCC)- Primary Malignant neoplasm of left breast in female, estrogen receptor negative (HCC)- Primary Malignant neoplasm of left breast in female, estrogen receptor negative, unspecified site of breast (HCC) documented in this encounter Care Teams Correctional Officer Captain Relationship Specialty Start Date End Date Toby Bell MD [address] [place] [address] PCP - General Family Medicine 02/08/22 documented as of this encounter
--- OUTSIDE RECORDS SUMMARY | 2023-12-07 20:34 | External Medical Summary ---
Author Name Unknown Address Unknown Organization [id number]:[facility] [place] [address] Laboratory Report Ordering Provider Test Date Status LEANN ROWELL 11/07/2023 10:01:47 Final Observation Date Value Abnormality Reference (Units ) Status WBC, Total 11/07/2023 10:01:47 3.52 Below low normal 4. 00-10.80 (K/uL) Final RBC 11/07/2023 10:01:47 4.67 3.85-5.15 (M/uL) Final Hemoglobin 11/07/2023 10:01:47 14.5 12.0-15.3 (g/dL) Final HCT 11/07/2023 10:01:47 45.6 Above high normal 36 .0-45.2 (%) Final MCV 11/07/2023 10:01:47 97.6 81.5-97.5 (fL) Final MCH 11/07/2023 10:01:47 31.0 27.0-34.0 (pg) Final MCHC 11/07/2023 10:01:47 31.8 32.0-36.0 (g/dL) Final RDW 11/07/2023 10:01:47 13.9 11.5-15.5 (%) Final Platelets 11/07/2023 10:01:47 183 140-400 (K /uL) Final MPV 11/07/2023 10:01:47 11.2 6.6-11.1 ( fL) Final Performing Location [facility] [place] [address]
--- OUTSIDE RECORDS SUMMARY | 2023-12-07 20:34 | External Medical Summary ---
Author Name Unknown Address Unknown Organization K09:[facility] [place] [address] Laboratory Report Ordering Provider Test Date Status LEANN ROWELL 11/14/2023 11:03:00 Final Observation Date Value Abnormality Reference (Units ) Status SYNC LEUKOCYTES IN BLOOD BY AUTOMATED COUNT 11/14/2023 11:03:00 3.22 Below low normal 4.00-10.80 (K/uL) Final Segs 11/14/2023 11:03:00 91.7 Above high normal 40.0-75.0 (%) Final Lymphs % 11/14/2023 11:03:00 7.1 Below low normal 18.0-42.0 (%) Final Monos 11/14/2023 11:03:00 1.2 1.0-11.0 (%) Final Eosinophils 11/14/2023 11:03:00 0.0 0.0-6.0 (%) Final Basos 11/14/2023 11:03:00 0.0 0.0-2.0 (%) Final Absolute Segs 11/14/2023 11:03:00 2.95 1.80-7.70 (K/uL) Final Lymphs, absolute 11/14/2023 11:03:00 0.23 Below low normal 1.00-4.80 (K/ul) Final Monos, Abs 11/14/2023 11:03:00 0.04 0.00-1.10 (K/uL) Final Eos, Abs 11/14/2023 11:03:00 0.00 0.00-0.70 (K/uL) Final Basos, Abs 11/14/2023 11:03:00 0.00 0.00-0.20 (K/uL) Final Performing Location [facility] [place] [address]
--- OUTSIDE RECORDS SUMMARY | 2023-12-07 20:34 | External Medical Summary | Summary of Care ---
Author Name Unknown Organization [facility] Address [address] [place] [address] Phone [phone] Care Team Providers Care Retort Loader Name Role Phone Toby Bell MD Primary Care Provider +1- [phone] Encounter Details Date Type Department Care Team (Late st Contact Info) Description 11/02/2023 Orders Only Hematology/Oncology, [facility] [address] [place] [address] Nas Palacios MD [address] [place] [address] Allergies Active Allergy Reactions Criticality Noted Date Comments Guaifenesin & Derivatives 10/11/2000 Daily--hives Lisinopril Edema face/lips/tongue High 08/05/2021 documented as of this encounter (statuses as of 11/02/2023) Medications Medication Sig Dispensed Refills Start Date [...] as of this encounter (statuses as of 11/02/2023) Active Problems Problem Noted Date Diagnosed Date [...] as of this encounter (statuses as of 11/02/2023) Immunizations Name Administration Dates Next Due COVID-19 [...] Description 11/07/2023 9:50 AM EDT Laboratory [facility] [place] [address] [place] [phone] [facility] [address] [place] [place] [address] 11/07/2023 11:00 AM EDT Hem/Onc Treatment Hematology/Oncology Treatment, [place] [address] [place] [phone] 11/08/2023 9:00 AM EDT Cardiac Studies Cardiac Studies, [facility] [address] [facility] [place] [address] 02/03/2024 10:30 AM EDT Telemedicine Genetics HemOnc, [facility] [address] [place] [address] Mabel Ford, [place] [address] [place] [address] 03/16/2024 2:40 PM EDT Office Visit [facility] [address] [place] [address] Toby Bell MD [address] [place] [address] 04/10/2024 10:30 AM EST Imaging Radiology, [address] [address] Scheduled Procedures Name Priority Associated Diagnoses Date/Ti me INSERT TUNNELED CENTRAL VENOUS ACCESS WITH SUBQ PORT Malignant neoplasm of left breast in female, estrogen receptor negative, unspecified site of breast (HCC) 11/02/2023 12:59 PM EDT Health Maintenance Due Date Last [...] filedocumented as of this encounter Care Teams Retort Loader Relationship Specialty Start Date End Date Toby Bell MD [address] [place] [address] PCP - General Family Medicine 02/08/22 documented as of this encounter
--- OUTSIDE RECORDS SUMMARY | 2023-12-07 20:34 | External Medical Summary | Summary of Care ---
Author Name Unknown Organization [facility] Address [address] [place] [address] Phone [phone] Care Team Providers Care Service Coordinator Name Role Phone Toby Bell MD Primary Care Provider +1- [phone] Reason for Visit * Reason Onset Date Comments Follow Up 11/10/2023 S/p C1,D1 Dum[place]/Ca rbo/Taxol Encounter Details Date Type Department Care Team (Late st Contact Info) Description 11/10/2023 Telephone Hematology/Oncology [facility] Christina [place] [address] [place] [address] Nas Palacios MD [address] [place] [address] Follow Up (S/p C1,D1 [place]/Carbo/Taxol) Allergies Active Allergy Reactions Criticality Noted Date Comments Guaifenesin & Derivatives 10/11/2000 Daily--hives Lisinopril Edema face/lips/tongue High 08/05/2021 documented as of this encounter (statuses as of 11/10/2023) Medications Medication Sig Dispensed Refills Start Date [...] as of this encounter (statuses as of 11/10/2023) Active Problems Problem Noted Date Diagnosed Date [...] as of this encounter (statuses as of 11/10/2023) Immunizations Name Administration Dates Next Due COVID-19 [...] for ages 0-17 years) Not on file 05 / Food Insecurity Answer Date Recorded Do you [...] Telephone Encounter - Easton Bonilla RN - 11/10/2023 1:58 PM EDT HEMATOLOGY/ONCOLOGY INITIAL CHEMO FOLLOW-UP Post chemo side effects: Pt denies any side effects Understands post treatment medications: Yes Understands to call office prior to ER visit/or with issues: Yes Aware of next appointment: Yes Additional information: Pt states she is doing very well. She started laxatives and has been movingher bowels more regularly which she is happy about. Denies any other issues at this time. documented in this encounter Plan of Treatment Upcoming Encounters Date Type Department Care Team (Late st Contact Info) Description 11/14/2023 11:10 AM EDT Laboratory Laboratory Bree Vasquez [place] [address] [place] [phone] Christina, Lab Scene [address] [facility] [place] [address] 11/14/2023 12:00 PM EDT Hem/Onc Treatment Hematology/Oncology Treatment, [place] [address] [place] [phone] Christina, Chair 10 Hem Onc Scene [address] [place] [address] 11/21/2023 10:10 AM EDT Laboratory [facility] [place] [address] [place], [place] [phone] Christina, Lab Scenery [address] [place], [place] [address] 11/21/2023 11:00 AM EDT [facility] [address] [facility], [place] [address] Christina, Chair 8 Hem Onc Scenery [address] [place], [place] [address] 11/28/2023 10:10 AM EDT Laboratory Laboratory [facility] Christina [place] [address] [place], [place] [phone] Christina, Lab Scenery [address] [place], [place] [address] 11/28/2023 11:00 AM EDT [facility] [address] [facility], [place] [phone] Christina, Chair 10 Hem Onc Scenery [address] [place], [place] [address] 12/06/2023 8:00 AM EDT Laboratory Laboratory [facility] Christina [place] [address] [place], [place] [phone] Christina, Lab Scenery [address] [place] [address] 12/06/2023 8:30 AM EDT Office Visit Hematology/Oncology [facility] [place] [address] [place], [place] [phone] Alissa Roldan CRNP [address] [place], [place] [address] [address] 12/06/2023 9:00 AM EDT Hem[facility] [address] [facility], [place] [phone] Christina, Chair 10 Hem Onc Scenery [address] [place], [place] [address] 12/12/2023 10:00 AM EDT Laboratory Laboratory [facility] [place] [address] [place] [phone] Christina, Lab Scenery [address] [facility] [place], [place] [address] 12/12/2023 11:00 AM EDT Hem/Onc Treatment Hematology/Oncology Treatment, [place] [address] [facility], [place] [phone] Christina, Chair 10 Hem Onc Scenery [address] [place], [place] [address] 02/03/2024 10:30 AM EDT Telemedicine Genetics HemOnc, [facility] [address] [place] [address] Mabel [place], [place] [address] [place] [address] 03/16/2024 2:40 PM EDT Office Visit [facility] [address] [place] [address] Toby Bell MD [address] [place] [address] 04/10/2024 10:30 AM EST Imaging Radiology, [facility] [address] [facility] [place], [place] [address] Health Maintenance Due Date Last Done Comments DXA Scan 1940 Albumin/Creatinine Ratio 09/16/1958 COVID-19 Vaccine ( season) 2023 09/16/2020, 08/15/2020 HbA1c 05/06/2023 11/04/2022 Depression Screening 10/10/2024 10/11/2023 Diabetic Foot Exam 10/10/2024 10/11/2023 Diabetic Eye Exam 10/19/2024 10/20/2023, , 10/20/2023, Additional history exists GFR 11/06/2024 11/07/2023, 11/2023, 10/13/2023, Additional history exists DTaP,Tdap,and Td Vaccines (3 [...] encounter Medical Devices Implanted Type Area Manager Physical Device Identifier Shelf Expiration Date Model / Serial / Lot Port Power Mri [id number] Cath - [id number] Implanted:Qty: 1 on 11/02/2023 by Mariah Abdul MD at OR [facility] Right: Chest CR BARD : PERIPHERAL VASCULAR 08/20/2024 [id number] / / [id number] documented as of this encounter Advance Directives * Full Code (Latest Code Status on File) Date Activated Date Inactivated Comments 11/02/2023 11:37 AM 11/02/2023 6:38 PM This order reflects the patients wishes and were consensually agreed upon. Question Answer Comments Discussion of Advance Directives occurred with: Patient Care Teams Service Coordinator Relationship Specialty Start Date End Date Toby Bell MD [address] [place], [place] [phone] PCP - General Family Medicine 02/08/22 documented as of this encounter
--- OUTSIDE RECORDS SUMMARY | 2023-12-07 20:34 | External Medical Summary ---
Author Name Unknown Address Unknown Organization K09:[facility] [place] [address] Laboratory Report Ordering Provider Test Date Status LEANN ROWELL 11/07/2023 10:01:47 Final Observation Date Value Abnormality Reference (Units ) Status Nucleated erythrocytes/100 leukocytes [Ratio] in Blood by Automated count 11/07/2023 10:01:47 Final Performing Location [facility] [place] [address]
--- OUTSIDE RECORDS SUMMARY | 2023-12-07 20:34 | External Medical Summary | Summary of Care ---
Author Name Unknown Organization [facility] Address [address] [place] [address] Phone [phone] Care Team Providers Care Fund Raiser Name Role Phone Toby Bell MD Primary Care Provider [phone]- [phone] Reason for Visit * Reason Comments Chemotherapy C1/D1 - Keytruda/Tax ol/Carbo * Episode Based Medications (Routine) - Authorized Specialty Diagnoses / Procedures Referred By Contac t Referred To Contact Diagnoses Encounter for antineoplastic chemotherapy Malignant neoplasm of upper-inner quadrant of left breast in female, estrogen receptor negative (HCC) Procedures CO PALONOSETRON HCL CO CARBOPLATIN INJECTION CO INJ PEMBROLIZUMAB CO PACLITAXEL INJECTION DOXO, EMEND, CYTOXAN-TO START 01/22/24, UDENYCA TO START 01/23/24 PER TREATMENT PLAN Nas aPlacios MD [address] [place] [address] Anc Hem/Onc [address] [address] Referral ID Status Reason Start Date Expiration Date V isits Requested Visits Authorized [id number] Authorized 10/27/2023 01/16/2024 [id number] Encounter Details Date Type Department Care Team (Latest Contact Info) Description 11/07/2023 11:00 AM EDT Hem/Onc Treatment Hematology/Oncolog y Treatment, [address] [address] Encounter for antineoplastic chemotherapy*; Malignant neoplasm of upper-inner quadrant of left breast in female, estrogen receptor negative (HCC) Allergies Active Allergy Reactions Criticality Noted Date Comments Guaifenesin & Derivatives 10/11/2000 Daily--kei Lisinopril Edema face/lips/tongue High 08/05/2021 documented as of this encounter (statuses as of 11/07/2023) Medications Medication Sig Dispensed Refills Start Date [...] as of this encounter (statuses as of 11/07/2023) Active Problems Problem Noted Date Diagnosed Date [...] as of this encounter (statuses as of 11/07/2023) Immunizations Name Administration Dates Next Due COVID-19 [...] 1:22 PM EDT Sexual Orientation Straight 10/11/2023 1 :22 PM EDT Job Start Date Occupation Industry [...] Care Team (Late st Contact Info) Description 11/08/2023 9:00 AM EDT Cardiac Studies [facility] Studies, [facility] [address] 11/14/2023 11:10 AM EDT Laboratory Laboratory [facility] [address] [facility] [place] [phone] Park, Lab [place] [address] [address] [place] [address] 11/14/2023 12:00 PM EDT Hem/Onc Treatment Hematology/Oncology Treatment, [place] [address] [facility] [address] [place] [phone] Christina, Chair 10 Hem Onc [place] [address] [place] [address] 11/21/2023 10:10 AM EDT Laboratory Laboratory [facility] [place]on [place] [address] [place] [place] [address] Christina, Lab Scenery [address] [place], [place] [address] 11/21/2023 11:00 AM EDT Hem/Onc Treatment Hematology/Oncology Treatment, [place] [address] [facility], [place] [address] Park, Chair 8 Hem Onc Scenery [address] [place] [address] 11/28/2023 10:10 AM EDT Laboratory Laboratory [facility] [place] [address] [place], [place] [address] Christina, Lab Scenery [address] [place], [place] [address] 11/28/2023 11:00 AM EDT Hem/Onc Treatment Hematology/Oncology Treatment, [place] [address] [facility], [place] [address] Christina, Chair 10 Hem Onc Scenery [address] [place] [address] 12/06/2023 8:00 AM EDT Laboratory Laboratory [facility] [place] [address] [place], [place] [address] Christina, Lab Scenery [address] [place], [place] [address] 12/06/2023 8:30 AM EDT Office Visit Hematology/Oncology [facility] [place] [address] [place] [address] Alissa Roldan CRNP [address] [place], [place] [address] [address] 12/06/2023 9:00 AM EDT [facility] [address] [place] [address] Christina, Chair 11 Hem Onc Scenery [address] [place] [address] 12/12/2023 10:00 AM EDT Laboratory Laboratory Scenery [place] [address] [place] [phone] Christina, Lab Scenery [address] [place] [address] 12/12/2023 11:00 AM EDT Hem/Onc Treatment Hematology/Oncology Treatment, [place] [address] [place] [phone] Christina, Chair 10 Hem Onc Scenery [address] [place] [address] 02/03/2024 10:30 AM EDT Telemedicine Genetics HemOnc, [facility] [address] [place] [address] [place], [place] [address] [place] [address] 03/16/2024 2:40 PM EDT Office Visit [facility] [address] [place] [address] Toby Bell MD [address] [place] [address] 04/10/2024 10:30 AM EST Imaging Radiology, [place] [id number] [facility] [address] [place], [place] [address] Health Maintenance Due Date Last Done Comments [...] encounter Medical Devices Implanted Type Area Community Service Officer Device Identifier Shelf Expiration Date Model / Serial / Lot Port Power Mri W8fr Cath - [id number] Implanted:Qty: 1 on 11/02/2023 by Mariah Abdul MD at OR [facility] Right: Chest CR BARD : PERIPHERAL VASCULAR 08/20/2024 [id number] / / [id number] documented as of this encounter Visit Diagnoses [...] ONCE PRN Other, Hypersensitivity Reaction, Starting on Tue11/07/23 at 1119, Until Tue11/08/23 at 1118, For 24 hours EPINEPHrine 1 MG/ML inj 0.3 mg 0.3 mg, Intramuscular, ONCE PRN Other, Hypersensitivity Reaction or Anaphylaxis, Starting on Tue11/07/23 at 1119, Until Tue11/08/23 at 1118, For 24 hours hEParin 100 UNIT/ML Lock Flush inj 500 Units 500 Units (5 mL), IV Lock, PRN Other, IV Flush, Starting on Tue11/07/23 at 1119, Until Tue11/08/23 at 1118, For 24 hours, Do not flush if lock, PICC, or central line not in place; IV infusing or unable to flush. Given 11/07/2023 2:08 PM EDT 500 Units Hydrocortisone Sod Suc (PF) (Solu-Cortef) inj 100 mg 100 mg, IV Push, ONCE PRN Other, Hypersensitivity Reaction, Starting on Tue11/07/23 at 1119, Until Tue11/08/23 at 1118, For 24 hours LORAzepam (Ativan) tab 0.5 mg 0.5 mg, Oral, ONCE PRN Anxiety, Nausea, Starting on Tue11/07/23 at 1230, Until Discontinued NSS infusion Intravenous, at 50 mL/hr, PRN, Starting on Tue11/07/23 at 1230, Until Discontinued, Maintenance line Start Infusion 11/07/2023 11:36 AM EDT 50 mL/hr oxygen GAS Inhalation, OXYGEN, First dose on Tue11/07/23 at 1600, Until Discontinued, Device/Managed by: Low [...] Flush, Starting on Tue11/07/23 at 1119, Until Tue11/08/23 at 1118, For 24 hours, Do not flush if lock, PICC, or central line not in place; IV infusing or unable to flush. Given 11/07/2023 2:08 PM EDT 10 mL Inactive Administered Medications [...] Given 11/07/2023 11:36 AM EDT 20 mg PACLitaxel (Taxol) 138 mg in NSS 250 mL infusion 138 mg (rounded from 137.6 mg = 80 mg/m2 1.72 m2 Treatment Plan BSA from Recorded weight), IV Piggyback, at 278 mL/hr Administer over 60 Minutes, Administer through 0.22 micron low protein binding filter!, ONCE, 1 dose, On Tue11/07/23 at 1330 Start Infusion 11/07/2023 12:22 PM EDT 138 mg 278 mL/hr Palonosetron (Aloxi) inj SOLN 0.25 mg 0.25 mg, IV Push, ONCE, On Tue11/07/23 at 1200, For 1 dose, Restricted per S antiemetic guidelines Given 11/07/2023 11:37 AM EDT 0.25 mg Pembrolizumab (Keytruda) 200 mg in NSS 100 mL infusion 200 mg, IV Piggyback, ONCE, 1 dose, On Tue11/07/23 at 1300, Administer over 30 Minutes, Infuse through 0.2 micron filter. Start Infusion 11/07/2023 11:46 AM EDT 200 mg 226 mL/hr documented in this encounter Advance Directives * Full Code (Latest Code Status on File) Date Activated Date Inactivated Comments 11/02/2023 11:37 AM 11/02/2023 6:38 PM This order reflects the patients wishes and were consensually agreed upon. Question Answer Comments Discussion of Advance Directives occurred with: Patient Care Teams Fund Raiser Relationship Specialty Start Date End Date Toby Bell MD [address] [place] [address] PCP - General Family Medicine 02/08/22 documented as of this encounter
--- OUTSIDE RECORDS SUMMARY | 2023-12-07 20:34 | External Medical Summary | Summary of Care ---
Author Name Unknown Organization [facility] Address [address] [place] [address] Phone [phone] Care Team Providers Care Pulverizer Tender Name Role Phone Toby Bell MD Primary Care Provider +1- [phone] Reason for Visit * Reason Comments Outpatient Testing Encounter Details Date Type Department Care Team (Late st Contact Info) Description 11/07/2023 9:50 AM EDT Laboratory Laboratory [address] [place] [address] [place] [address] [facility] Lab Scenery [address] [place] [address] Malignant neoplasm of upper-inner quadrant of left [...] 9:00 AM EDT Cardiac Studies Cardiac Studies, [facility] [address] [facility] [facility] [address] 02/03/2024 10:30 AM EDT Telemedicine Genetics HemOnc, [facility] [address] [place] [address] [place], [place] [address] [place] [address] 03/16/2024 2:40 PM EDT Office Visit [address] [phone] Toby Bell MD [address] [facility] [place] [address] 04/10/2024 10:30 AM EST Imaging Radiology, [address] [place] [address] Health Maintenance Due Date Last Done Comments DXA Scan 1940 Albumin/Creatinine Ratio 09/16/1958 COVID-19 Vaccine (3 - Moderna risk series) 10/14/2020 09/16/2020, 08/15/2020 HbA1c 05/06/2023 11/04/2022 Depression Screening 10/10/2024 10/11/2023 Diabetic Foot Exam 10/10/2024 10/11/2023 Diabetic Eye Exam 10/19/2024 10/20/2023, , 10/20/2023, Additional history exists GFR 11/06/2024 11/07/2023, 06/0 11/2023, 10/13/2023, Additional history exists DTaP,Tdap,and Td [...] this encounter Medical Devices Implanted Type Area Replenishment Associate Device Identifier Shelf Expiration Date Model / Serial / Lot Port Power Mri W8fr Cath - [id number] Implanted:Qty: 1 on 11/02/2023 by Mariah Abdul MD at OR [facility] Right: Chest CR BARD : PERIPHERAL VASCULAR 08/20/2024 [id number] / / [id number] documented as of this encounter Procedures Procedure Name Priority Date/Time Associated Diagnosis Comments DIFFERENTIAL, AUTOMATED STAT 11/07/2023 10:01 AM EDT Malignant neoplasm of upper-inner quadrant of left breast in female, estrogen receptor negative (HCC) COMPREHENSIVE METABOLIC PANEL STAT 11/07/2023 10:01 AM EDT Malignant neoplasm of upper-inner quadrant of left breast in female, estrogen receptor negative (HCC) CBC STAT 11/07/2023 10:01 AM EDT Malignant neoplasm of upper-inner quadrant of left breast in female, estrogen receptor negative (HCC) CBC STAT 11/07/2023 10:01 AM EDT Malignant neoplasm of upper-inner quadrant of left breast in female, estrogen receptor negative (HCC) DIFFERENTIAL, TECHNOLOGIST REVIEW Routine 11/07/2023 10:01 AM EDT Malignant neoplasm of upper-inner quadrant of left breast in female, estrogen receptor negative (HCC) documented in this encounter Results * DIFFERENTIAL, TECHNOLOGIST REVIEW (11/07/2023 10:01 AM EDT) nRBCs 11/07/2023 10:12 AM EDT [facility] 56-02 Blood Venous blood specimen / Unknown Venipuncture / Unknown 11/07/2023 10:01 AM EDT 11/07/2023 10:02 AM EDT Nas Palacios MD LAB BLOOD ORDERA BLES [facility] 56- [address] [place] [address] * (ABNORMAL) DIFFERENTIAL, AUTOMATED (11/07/2023 10:01 AM EDT) WBC 3.52(L) 4.00 - 10.80 K/uL 11/07/2023 10:12 AM EDT [facility] 56-02 Neutrophils % 91.2(H) 40.0 - 75.0 % 11/07/2023 10:12 AM EDT [facility] 56-02 Lymphocytes % 7.7(L) 18.0 - 42.0 % 11/07/2023 10:12 AM EDT [facility] 56 Monocytes % 1.1 1.0 - 11.0 % 11/07/2023 10:12 AM EDT [facility] 56- Eosinophils % 0.0 0.0 - 6.0 % 11/07/2023 10:12 AM EDT [facility] 56 Basophils % 0.0 0.0 - 2.0 % 11/07/2023 10:12 AM EDT [facility] 56 Absolute Neutrophils 3.21 1.80 - 7.70 K/uL 11/07/2023 10:12 AM EDT [facility] 56 Absolute Lymphocytes 0.27(L) 1.00 - 4.80 K/ul 11/07/2023 10:12 AM EDT [facility] 56 Absolute Monocytes 0.04 0.00 - 1.10 K/uL 11/07/2023 10:12 AM EDT [facility] 56 Absolute Eosinophils 0.00 0.00 - 0.70 K/uL 11/07/2023 10:12 AM EDT [facility] 56 Absolute Basophils 0.00 0.00 - 0.20 K/uL 11/07/2023 10:12 AM EDT [facility] 56 Blood Venous blood specimen / Unknown Venipuncture / Unknown 11/07/2023 10:01 AM EDT 11/07/2023 10:02 AM EDT Nas Palacios MD LAB BLOOD ORDERA BLES [facility] [address] [place] [address] * (ABNORMAL) CBC (11/07/2023 10:01 AM EDT) WBC 3.52(L) 4.00 - 10.80 K/uL 11/07/2023 10:12 AM EDT [facility] 56- RBC 4.67 3.85 - 5.15 M/uL 11/07/2023 10:12 AM EDT [facility] 56 HGB 14.5 12.0 - 15.3 g/dL 11/07/2023 10:12 AM EDT [facility] 56 HCT 45.6(H) 36.0 - 45.2 % 11/07/2023 10:12 AM EDT [facility] 56 MCV 97.6 81.5 - 97.5 fL 11/07/2023 10:[address]T [address] MCH 31.0 27.0 - 34.0 pg 11/07/2023 10:12 AM EDT [facility] 56 MCHC 31.8 32.0 - 36.0 g/dL 11/07/2023 10:12 AM EDT [facility] 56 RDW 13.9 11.5 - 15.5 % 11/07/2023 10:12 AM EDT [facility] 56 PLT 183 140 - 400 K/uL 11/07/2023 10:[address] MPV 11.2 6.6 - 11.1 fL 11/07/2023 10:12 AM T [facility] 56 Blood Venous blood specimen / Unknown Venipuncture / Unknown 11/07/2023 10:01 AM EDT 11/07/2023 10:02 AM EDT Nas Palacios MD LAB BLOOD ORDERA BLES [facility] [address] [place] [address] * (ABNORMAL) COMPREHENSIVE METABOLIC PANEL (11/07/2023 10:01 AM EDT) BUN 18 6 - 20 mg/dL 11/07/2023 10:29 AM EDT [facility] 56 Creatinine 0.7 0.5 - 1.0 mg/dL 11/07/2023 10:29 AM EDT [facility] 56 Estimated Glomerular Filtration Rate 86 >=60 mL/min 11/07/2023 10:29 AM EDT [facility] 56 Comment:eGFR is calculated b ased on the CKD-EPI 2020 equation Sodium 140 135 - 146 mmol/L 11/07/2023 10:29 AM EDT [facility] 56 Potassium 4.3 3.5 - 5.1 mmol/L 11/07/2023 10:29 AM EDT [facility] 56- Chloride 104 98 - 107 mmol/L 11/07/2023 10:29 AM EDT [facility] 56- CO2 22 22 - 32 mmol/L 11/07/2023 10:29 AM EDT [facility] 56- Anion Gap 14 7 - 15 mmol/L 11/07/2023 10:29 AM EDT [facility] 56 Glucose 224(H) 70 - 120 mg/dL 11/07/2023 10:29 AM EDT [facility] 56 Albumin 4.4 3.8 - 5.0 g/dL 11/07/2023 10:29 AM EDT [facility] 56 AST 22 10 - 35 U/L 11/07/2023 10:29 AM EDT [facility] 56 Alkaline Phosphatase 68 35 - 130 U/L 11/07/2023 10:29 AM EDT [facility] 56 Bilirubin, Total 0.3 <=1.2 mg/dL 11/07/2023 10:29 AM EDT [facility] 56 Calcium 9.8 8.4 - 10.2 mg/dL 11/07/2023 10:29 AM EDT [facility] 56 Protein 7.7 6.0 - 8.3 g/dL 11/07/2023 10:29 AM EDT [facility] 56 ALT 12 10 - 35 U/L 11/07/2023 10:29 AM T [facility] 56 Blood Venous blood specimen / Unknown Venipuncture / Unknown 11/07/2023 10:01 AM EDT 11/07/2023 10:02 AM EDT Nas Palacios MD LAB BLOOD ORDERA BLES [facility] [address] [place] [address] documented in this encounter Visit Diagnoses Diagnosis [...] Advance Directives occurred with: Patient Care Teams Pulverizer Tender Relationship Specialty Start Date End Date Toby Bell MD [address] [facility] [place] [address] PCP - General Family Medicine 02/08/22 documented as of this encounter
--- OUTSIDE RECORDS SUMMARY | 2023-12-07 20:34 | External Medical Summary ---
Author Name Unknown Address Unknown Organization [id number]:[facility] [place] [address] [place] [place] [address] Laboratory Report Ordering Provider Test Date Status LEANN ROWELL 11/07/2023 10:01:47 Final Observation Date Value Abnormality Reference (Units ) Status BUN 11/07/2023 10:01:47 18 6-20 (mg/dL) Final Creatinine 11/07/2023 10:01:47 0.7 0.5-1.0 (mg/dL) Final Glomerular filtration rate/1.73 sq M.predicted [Volume Rate/Area] in Serum, Plasma or Blood by Creatinine-based formula (CKD-EPI) 11/07/2023 10:01:47 86 >=60 (mL/min) Final eGFR is calculated based on the CKD-EPI 2020 equation Sodium 11/07/2023 10:01:47 140 135-146 (m mol/L) Final Potassium 11/07/2023 10:01:47 4.3 3.5-5.1 (m mol/L) Final Cl 11/07/2023 10:01:47 104 98-107 (mm ol/L) Final CO2 11/07/2023 10:01:47 22 22-32 (mmo l/L) Final Anion gap 11/07/2023 10:01:47 14 7-15 (mmol /L) Final Glucose 11/07/2023 10:01:47 224 Above high normal 70 -120 (mg/dL) Final Albumin 11/07/2023 10:01:47 4.4 3.8-5.0 (g /dL) Final AST (Aspartate aminotransferase) 11/07/2023 10:01:47 22 10-35 (U/L) Fin al Alk Phos 11/07/2023 10:01:47 68 35-130 (U/ L) Final Bilirubin, Total 11/07/2023 10:01:47 0.3 <=1 .2 (mg/dL) Final Calcium 11/07/2023 10:01:47 9.8 8.4-10.2 ( mg/dL) Final Protein 11/07/2023 10:01:47 7.7 6.0-8.3 (g /dL) Final ALT (Alanine aminotransferase) 11/07/2023 10:01:47 12 10-35 (U/L) Octavio lo Performing Location [facility] 18- [address] [place] [address]
--- OUTSIDE RECORDS SUMMARY | 2023-12-07 20:35 | External Medical Summary | Summary of Care ---
Author Name Unknown Organization [facility] Address [address] [place] [address] Phone [phone] Care Team Providers Care General Passenger Agent Name Role Phone Toby Bell MD Primary Care Provider +1- [phone] Reason for Visit * Reason Onset Date Comments Medication Refill 10/28/2023 Encounter Details Date Type Department Care Team (Late st Contact Info) Description 10/28/2023 Refill Hematology/Oncology Treatment, [place] [address] [place] [address] Nas Palacios MD [address] [place] [address] Malignant neoplasm of upper-inner quadrant of left breast in female, estrogen receptor negative (HCC)* Allergies Active Allergy Reactions Criticality Noted Date Comments Guaifenesin & Derivatives 10/11/2000 Daily--hives Lisinopril Edema face/lips/tongue High 08/05/2021 documented as of this encounter (statuses as of 10/28/2023) Medications Medication Sig Dispensed Refills Start Date [...] as of this encounter (statuses as of 10/28/2023) Active Problems Problem Noted Date Diagnosed Date [...] as of this encounter (statuses as of 10/28/2023) Immunizations Name Administration Dates Next Due COVID-19 [...] Telephone Encounter - Marielos Mondragon RN - 10/28/2023 10:49 AM EDT Pended EMLA documented in this encounter Plan of Treatment Upcoming Encounters Date Type Department Care Team (Latest Contact Info) Description 11/02/2023 12:45 PM EDT Hospital Encounter [facility], Operating Room [facility] [address] [place] [address] Mariah Abdul MD [address] [place] [address] 11/02/2023 12:45 PM EDT - 11/02/2023 2:00 PM EDT Surgery OR [facility], Operating Room [facility] [address] [place] [phone] Mariah Abdul MD [address] [place] [address] INSERT TUNNELED CENTRAL VENOUS ACCESS WITH SUBQ PORT 11/08/2023 9:00 AM EDT Cardiac Studies Cardiac Studies, [facility] [address] [place] [address] 02/03/2024 10:30 AM EDT Telemedicine Genetics HemOnc, [facility] [address] [place] [address] [place], [place] [address] [place], [place] [id number] 03/16/2024 2:40 PM EDT Office Visit Family [facility] [address] [place] [phone] Toby Bell MD [address] [place] [address] 04/10/2024 10:30 AM EST Imaging Radiology, [address] [address] Scheduled Procedures Name Priority Associated Diagnoses Date/Ti [...] 10/10/2024 10/11/2023 Diabetic Foot Exam 10/10/2024 10/11/2023 GFR 10/12/2024 10/13/2023, 06/09/2022, 02/08/2022, Additional history exists Diabetic Eye Exam 10/19/2024 10/20/2023, (Done elsewhere), 12/15/2022, Additional history exists DTaP,Tdap,and Td Vaccines (3 [...] receptor negative (HCC)- Primary Malignant neoplasm of upper-inner quadrant of left breast in female, estrogen receptor negative (HCC)- Primary Malignant neoplasm of left breast in female, estrogen receptor negative, unspecified site of breast (HCC) documented in this encounter Care Teams General Passenger Agent Relationship Specialty Start Date End Date Toby Bell MD [address] [place] [address] PCP - General Family Medicine 02/08/22 documented as of this encounter
--- OUTSIDE RECORDS SUMMARY | 2023-12-07 20:35 | External Medical Summary ---
Author Name Unknown Address Unknown Organization [id number]:[facility] [place] - [address] [place] [address] Laboratory Report Ordering Provider Test Date Status LEANN ROWELL 10/28/2023 11:09:16 Final Observation Date Value Abnormality Reference (Units ) Status TSH 10/28/2023 11:09:16 1.91 0.27-4.20 (uIU/mL) Final Performing Location [facility] [place] - [address] [place] [address]
--- OUTSIDE RECORDS SUMMARY | 2023-12-07 20:35 | External Medical Summary ---
Author Name Unknown Address Unknown Organization [id number]:[facility] [place] - [address] [place] [address] Laboratory Report Ordering Provider Test Date Status LEANN ROWELL 10/28/2023 11:09:16 Final Observation Date Value Abnormality Reference (Units ) Status Hepatitis B virus core Ab [Presence] in Serum 10/28/2023 11:09:16 Negative Negative Final Performing Location [facility] [place] - [address] [place] [address]
--- OUTSIDE RECORDS SUMMARY | 2023-12-07 20:35 | External Medical Summary ---
Author Name Unknown Address Unknown Organization K09:[facility] [place] [address] Laboratory Report Ordering Provider Test Date Status LEANN ROWELL 10/28/2023 11:09:16 Final Observation Date Value Abnormality Reference (Units ) Status WBC, Total 10/28/2023 11:09:16 2.82 Below low normal 4. 00-10.80 (K/uL) Final RBC 10/28/2023 11:09:16 4.29 3.85-5.15 (M/uL) Final Hemoglobin 10/28/2023 11:09:16 13.6 12.0-15.3 (g/dL) Final HCT 10/28/2023 11:09:16 42.6 36.0-45.2 (%) Final MCV 10/28/2023 11:09:16 99.3 81.5-97.5 (fL) Final MCH 10/28/2023 11:09:16 31.7 27.0-34.0 (pg) Final MCHC 10/28/2023 11:09:16 31.9 32.0-36.0 (g/dL) Final RDW 10/28/2023 11:09:16 14.1 11.5-15.5 (%) Final Platelets 10/28/2023 11:09:16 184 140-400 (K /uL) Final MPV 10/28/2023 11:09:16 11.0 6.6-11.1 ( fL) Final Performing Location [facility] [place] [address]
--- OUTSIDE RECORDS SUMMARY | 2023-12-07 20:35 | External Medical Summary ---
Author Name Unknown Address Unknown Organization K01:[facility] [place] [address] [place] [address] Laboratory Report Ordering Provider Test Date Status ROWELLJAREDLEANN 10/28/2023 11:09:16 Final Observation Date Value Abnormality Reference (Units) Status Hepatitis B virus surface Ab [Units/volume] in Serum or Plasma by Immunoassay 10/28/2023 11:09:16 <3.5 (mIU/mL) Final Hepatitis B virus surface Ab [Presence] in Serum by Immunoassay 10/28/2023 11:09:16 Negative Final HEPATITIS B SURFACE ANTIBODY, INTERPRETATION 10/28/2023 11:09:16 NOT immune to Hepatitis B Virus Final POSITIVE: >=11.5 mIU/mL
INDETERMINATE: 8.5-<11.5 mIU/mL
NEGATIVE: <8.5 mIU/mL Performing Location [facility] [place] [place] - [facility] [place] [address]
--- OUTSIDE RECORDS SUMMARY | 2023-12-07 20:35 | External Medical Summary | Summary of Care ---
Author Name Unknown Organization [facility] Address [address] [place] [address] Phone [phone] Care Team Providers Care Mill Laborer Name Role Phone Toby Bell MD Primary Care Provider [phone]- [phone] Reason for Visit * Reason Onset Date Comments Precert Future 10/26/2023 Keytruda, taxol, carbo--> keytruda, AC Encounter Details Date Type Department Care Team (Late st Contact Info) Description 10/26/2023 Telephone Hematology/Oncology Treatment, [place] [address] [place] [address] Nas Palacios MD [address] [place] [address] Precert Future (Keytruda, taxol, carbo--> ... Allergies Active Allergy Reactions Criticality Noted Date Comments Guaifenesin & Derivatives 10/11/2000 Daily--hives Lisinopril Edema face/lips/tongue High 08/05/2021 documented as of this encounter (statuses as of 10/26/2023) Medications Medication Sig Dispensed Refills Start Date [...] needed for Nausea. 30 Tablet 10/26/2023 Active Ondansetron HCl 8 MG Oral TabletIndications: Malignant [...] hours before chemotherapy 40 Tablet 10/26/2023 Active documented as of this encounter (statuses as of 10/26/2023) Active Problems Problem Noted Date Diagnosed Date [...] as of this encounter (statuses as of 10/26/2023) Immunizations Name Administration Dates Next Due COVID-19 [...] received for keytruda, carbo, taxol--> keytruda, AC [place] plan built. Waiting for auth. Consent signed 10/26/23. Nurse education 10/28/23. Will need hep B labs. Echo 11/02/23. Patient will need port- scheduled with gen surg 11/02/23. documented in this encounter Plan of Treatment Upcoming Encounters Date Type Department Care Team (Late st Contact Info) Description 10/28/2023 10:00 AM EDT Nurse Only Hematology/Oncology [facility] [address] [place] [address] Christina Nurse Hem Onc [facility] [address] [place] [address] 10/28/2023 3:00 PM EDT Office Visit [address] [place] [phone] Favian Loomis MD [address] [place] [address] 11/02/2023 7:15 AM EDT Cardiac Studies Cardiac Studies, [address] [place] [address] 11/02/2023 9:30 AM EDT Imaging [facility] 2nd Floor Cardiology, [address] [place] [address] 11/02/2023 3:10 PM EDT Imaging Radiology [facility] 1st Floor, [address] [place] [address] 11/04/2023 9:15 AM EDT Scheduled Telephone General Surgery, [address] [place] [address] [facility], Nurse Gen Surg [address] [address] 11/17/2023 9:30 AM EDT Office Visit General Surgery, [address] [place] [address] Mariah Abdul MD [address] [place] [address] 02/03/2024 10:30 AM EDT Telemedicine Genetics HemOnc, [facility] [address] [place] [address] Mabel Ford, [place] [address] [place] [address] 03/16/2024 2:40 PM EDT Office Visit [facility] [address] [place] [phone] Toby Bell MD [address] [place] [address] 04/10/2024 10:30 AM [facility] Imaging Radiology, [address] [address] Scheduled Orders Name Type Priority Associated Diagnoses Orde r Schedule CBC WITH WBC DIFFERENTIAL Lab STAT Malignant neoplasm of upper-inner quadrant of left breast in female, estrogen receptor negative (HCC) Every Week for 52 Occurrences starting 10/26/2023 until 10/25/2024 COMPREHENSIVE METABOLIC PANEL Lab STAT Malignant neoplasm of upper-inner quadrant of left breast in female, estrogen receptor negative (HCC) Every Week for 52 Occurrences starting 10/26/2023 until 10/25/2024 TSH WITH FREE T4 IF INDICATED Lab STAT Malignant neoplasm of upper-inner quadrant of left breast in female, estrogen receptor negative (HCC) Every 3 Weeks for 17 Occurrences starting 10/26/2023 until 10/25/2024 HEPATITIS B SURFACE ANTIBODY Lab STAT Malignant neoplasm of upper-inner quadrant of left breast in female, estrogen receptor negative (HCC) Expected: 10/26/2023 (Approximate), Expires: 10/25/2024 HEPATITIS B SURFACE ANTIGEN Lab STAT Malignant neoplasm of upper-inner quadrant of left breast in female, estrogen receptor negative (HCC) Expected: 10/26/2023 (Approximate), Expires: 10/25/2024 HEPATITIS B CORE ANTIBODIES IGG AND IGM Lab STAT Malignant neoplasm of upper-inner quadrant of left breast in female, estrogen receptor negative (HCC) Expected: 10/26/2023 (Approximate), Expires: 10/25/2024 Scheduled Procedures Name Priority Associated Diagnoses Date/Ti me INSERT TUNNELED CENTRAL VENO US ACCESS WITH SUBQ PORT Malignant neoplasm of left breast in female, estrogen receptor negative, unspecified site of breast (HCC) Health Maintenance Due Date Last Done Comments DXA Scan 1940 Albumin/Creatinine Ratio 09[birth year]16/1958 COVID-19 Vaccine ( season) 2023 09/16/2020, 08/15/2020 HbA1c 05/06/2023 11/04/2022 Depression Screening 10/10/2024 10/11/2023 Diabetic Foot Exam 10/10/2024 10/11/2023 GFR 10/12/2024 10/13/2023, 10/21, 02/08/2022, Additional history exists Diabetic Eye Exam [...] in female, estrogen receptor negative (HCC)- Primary documented in this encounter Care Teams Mill Laborer Relationship Specialty Start Date End Date Toby Bell MD [address] [place], [place] [phone] PCP - General Family Medicine 02/08/22 documented as of this encounter
--- OUTSIDE RECORDS SUMMARY | 2023-12-07 20:35 | External Medical Summary | Summary of Care ---
Author Name Unknown Organization [facility] Address [address] [place] [address] Phone [phone] Care Team Providers Care Inspector Semiconductor Wafer Name Role Phone Toby Bell MD Primary Care Provider +1- [phone] Encounter Details Date Type Department Care Team (Late st Contact Info) Description 10/28/2023 10:00 AM EDT Nurse Only Hematology/Oncology [facility] [place] [address] [place] [address] [place], Nurse Hem Onc [facility] [address] [place] [address] Allergies Active Allergy Reactions Criticality Noted Date [...] as of this encounter Nursing Notes * Marielos Mondragon RN - 10/28/2023 4:14 PM EDT Nurse education for keytruda, carbo, taxol, adriamycin, cytoxan, udenyca complete. documented in this encounter Plan of Treatment Upcoming Encounters Date Type Department Care Team (Latest Contact Info) Description 11/02/2023 12:45 PM EDT Hospital Encounter OR [facility], Operating Room [facility] [address] [place] [address] Mariah Abdul MD [address] [place] [address] 11/02/2023 12:45 PM EDT - 11/02/2023 2:00 PM EDT Surgery OR [facility], Operating Room [facility] [address] [place] [phone] Mariah Abdul MD [address] [place] [address] INSERT TUNNELED CENTRAL VENOUS ACCESS WITH SUBQ PORT 11/08/2023 9:00 AM EDT Cardiac Studies Cardiac Studies, [facility] [address] [place] [address] 02/03/2024 10:30 AM EDT Telemedicine Genetics HemOnc, [facility] [address] [place] [address] [place]abel [place], [place] [address] [place] [address] 03/16/2024 2:40 PM EDT Office Visit Family [facility] [address] [place] [phone] Toby Bell MD [address] [place] [address] 04/10/2024 10:30 AM EST Imaging Radiology, [address] [address] Pending Results Name Type Priority Associated Diagnoses Date /Time TSH WITH FREE T4 IF INDICATED Lab STAT Malignant neoplasm of upper-inner quadrant of left breast in female, estrogen receptor negative (HCC) 10/28/2023 11:09 AM EDT HEPATITIS B SURFACE ANTIBODY Lab STAT Malignant neoplasm of upper-inner quadrant of left breast in female, estrogen receptor negative (HCC) 10/28/2023 11:09 AM EDT HEPATITIS B SURFACE ANTIGEN Lab STAT Malignant neoplasm of upper-inner quadrant of left breast in female, estrogen receptor negative (HCC) 10/28/2023 11:09 AM EDT HEPATITIS B CORE ANTIBODIES IGG AND IGM Lab STAT Malignant neoplasm of upper-inner quadrant of left breast in female, estrogen receptor negative (HCC) 10/28/2023 11:09 AM EDT Scheduled Procedures Name Priority Associated Diagnoses Date/Ti [...] 10/20/2023, (Done elsewhere), 12/15/2022, Additional history exists GFR 10/27/2024 10/28/2023, 09/21, [...] Not on filedocumented as of this encounter Procedures Procedure Name Priority Date/Time Associated Diagnosis Comments DIFFERENTIAL, AUTOMATED STAT 10/28/2023 11:09 AM EDT Malignant neoplasm of upper-inner quadrant of left breast in female, estrogen receptor negative (HCC) COMPREHENSIVE METABOLIC PANEL STAT 10/28/2023 11:09 AM EDT Malignant neoplasm of upper-inner quadrant of left breast in female, estrogen receptor negative (HCC) CBC STAT 10/28/2023 11:09 AM EDT Malignant neoplasm of upper-inner quadrant of left breast in female, estrogen receptor negative (HCC) CBC STAT 10/28/2023 11:09 AM EDT Malignant neoplasm of upper-inner quadrant of left breast in female, estrogen receptor negative (HCC) documented in this encounter Results * (ABNORMAL) DIFFERENTIAL, AUTOMATED (10/28/2023 11:09 AM EDT) WBC 2.82(L) 4.00 - 10.80 K/uL 10/28/2023 11:18 AM EDT [facility] 56-02 Neutrophils % 54.3 40.0 - 75.0 % 10/28/2023 11:18 AM EDT [facility] 56-02 Lymphocytes % 28.7 18.0 - 42.0 % 10/28/2023 11:18 AM EDT [facility] 56-02 Monocytes % 15.2(H) 1.0 - 11.0 % 10/28/2023 11:18 AM EDT [facility] 56-02 Eosinophils % 1.4 0.0 - 6.0 % 10/28/2023 11:18 AM EDT [facility] 56-02 Basophils % 0.4 0.0 - 2.0 % 10/28/2023 11:18 AM EDT [facility] 56-02 Absolute Neutrophils 1.53(L) 1.80 - 7.70 K/uL 10/28/2023 11:18 AM EDT [facility] 56-02 Absolute Lymphocytes 0.81(L) 1.00 - 4.80 K/ul 10/28/2023 11:18 AM EDT [facility] 56-02 Absolute Monocytes 0.43 0.00 - 1.10 K/uL 10/28/2023 11:18 AM EDT [facility] 56-02 Absolute Eosinophils 0.04 0.00 - 0.70 K/uL 10/28/2023 11:18 AM EDT [facility] 56-02 Absolute Basophils 0.01 0.00 - 0.20 K/uL 10/28/2023 11:18 AM EDT [facility] 56-02 Blood Venous blood specimen / Unknown Venipuncture / Unknown 10/28/2023 11:09 AM EDT 10/28/2023 11:09 AM EDT Nas Palacios MD LAB BLOOD [facility] [address] [place] [address] * (ABNORMAL) CBC (10/28/2023 11:09 AM EDT) WBC 2.82(L) 4.00 - 10.80 K/uL 10/28/2023 11:18 [address] EDT [address] RBC 4.29 3.85 - 5.15 M/uL 10/28/2023 11:18 AM EDT [place] [address] HGB 13.6 12.0 - 15.3 g/dL 10/28/2023 11:18 AM EDT [address] HCT 42.6 36.0 - 45.2 % 10/28/2023 11:18 AM EDT [address] MCV 99.3 81.5 - 97.5 fL 10/28/2023 11:18 AM EDT [address] MCH 31.7 27.0 - 34.0 pg 10/28/2023 11:18 AM EDT [place] [address] MCHC 31.9 32.0 - 36.0 g/dL 10/28/2023 11:18 AM EDT [address] RDW 14.1 11.5 - 15.5 % 10/28/2023 11:18 AM EDT [facility] 56 PLT 184 140 - 400 K/uL 10/28/2023 11:18 AM EDT [place] [address] MPV 11.0 6.6 - 11.1 fL 10/28/2023 11:18 AM EDT [facility] Blood Venous blood specimen / Unknown Venipuncture / Unknown 10/28/2023 11:09 AM EDT 10/28/2023 11:09 AM EDT Nas Palacios MD LAB BLOOD [facility] 56 [address] [place] [address] * (ABNORMAL) COMPREHENSIVE METABOLIC PANEL (10/28/2023 11:09 AM EDT) BUN 15 6 - 20 mg/dL 10/28/2023 11:38 AM [place] [address] Creatinine 0.8 0.5 - 1.0 mg/dL 10/28/2023 11:[address] Estimated Glomerular Filtration Rate 75 >=60 mL/min 10/28/2023 11:[address] Comment:eGFR is calculated b ased on the CKD-EPI 2020 equation Sodium 141 135 - 146 mmol/L 10/28/2023 11:[address] Potassium 4.2 3.5 - 5.1 mmol/L 10/28/2023 11:[address] Chloride 108(H) 98 - 107 mmol/L 10/28/2023 11:[address] CO2 23 22 - 32 mmol/L 10/28/2023 11:[address] Anion Gap 10 7 - 15 mmol/L 10/28/2023 11:[address] Glucose 110 70 - 120 mg/dL 10/28/2023 11:[address] Albumin 4.1 3.8 - 5.0 g/dL 10/28/2023 11:[address] AST 21 10 - 35 U/L 10/28/2023 11:[address] Alkaline Phosphatase 68 35 - 130 U/L 10/28/2023 11:[address] Bilirubin, Total 0.3 <=1.2 mg/dL 10/28/2023 11:[address] Calcium 8.9 8.4 - 10.2 mg/dL 10/28/2023 11:[address] Protein 6.8 6.0 - 8.3 g/dL 10/28/2023 11:38 AM [facility] 56 ALT 7(L) 10 - 35 U/L 10/28/2023 11:38 AM [facility] 56 Blood Venous blood specimen / Unknown Venipuncture / Unknown 10/28/2023 11:09 AM EDT 10/28/2023 11:09 AM EDT Nas Palacios MD LAB BLOOD ORDERA BLES [facility] 56-[address] [place] [address] documented in this encounter Visit Diagnoses Diagnosis Malignant neoplasm of left breast in female, estrogen receptor negative (HCC)- Primary Malignant neoplasm of upper-inner quadrant of left breast in female, estrogen receptor negative (HCC)- Primary Malignant neoplasm of left breast in female, estrogen receptor negative, unspecified site of breast (HCC) documented in this encounter Care Teams Inspector Semiconductor Wafer Relationship Specialty Start Date End Date Toby Bell MD [address] [place] [address] PCP - General Family Medicine 02/08/22 documented as of this encounter
--- OUTSIDE RECORDS SUMMARY | 2023-12-07 20:35 | External Medical Summary | Summary of Care ---
Author Name Unknown Organization [facility] Address [address] [place] [address] Phone [phone] Care Team Providers Care Sales Product Manager Name Role Phone Toby Bell MD Primary Care Provider +1- [phone] Reason for Visit * Reason Onset Date Comments Appointment 10/24/2023 Encounter Details Date Type Department Care Team (Late st Contact Info) Description 10/24/2023 Telephone [facility] [address] [place] [address] Toby Bell MD [address] [place] [address] Appointment Allergies Active Allergy Reactions Criticality Noted Date Comments Guaifenesin & Derivatives 10/11/2000 Daily--hives Lisinopril Edema face/lips/tongue High 08/05/2021 documented as of this encounter (statuses as of 10/27/2023) Medications Medication Sig Dispensed Refills Start Date End Date Status OCUVITE OR TABS 1 TABLET DAILY 30 0 04/16/2002 Active Atorvastatin Calcium 40 MG Oral Tablet (Lipitor) Take 1 Tablet by mouth in the morning. 90 Tablet 3 10/24/2023 Active Losartan Potassium 50 MG Oral Tablet (Cozaar) Take 1.5 Tablets by mouth in the morning. 135 Tablet 3 10/24/2023 Active documented as of this encounter (statuses as of 10/27/2023) Active Problems Problem Noted Date Diagnosed Date [...] as of this encounter (statuses as of 10/27/2023) Immunizations Name Administration Dates Next Due COVID-19 [...] encounter Miscellaneous Notes * Telephone Encounter - Phyllis Colin OSA - 10/27/2023 11:02 AM EDT Cancelled. 10/27/2023 * Telephone Encounter - Vanda Henley LPN - 10/27/2023 8:53 AM EDT Patient was notified. Please cancel appt for tomorrow. * Telephone Encounter - Toby Bell MD - 10/26/2023 5:13 PM EDT She does not need the appointment on 10/28/23 * Telephone Encounter - Roslyn Ricks OSA - 10/26/2023 11:33 AM EDT Pt has an apt on 10/27 for a pre-op She is no longer having surgery Pt is asking if she still needs this apt Please follow up with pt * Telephone Encounter - Paulina Adam OSA - 10/24/2023 3:45 PM EDT Pt needs appt documented in this encounter Plan of Treatment Upcoming Encounters Date Type Department Care Team (Latest Contact Info) Description 10/28/2023 10:00 AM EDT Nurse Only Hematology/Oncology [facility] [address] [place] [address] [place], Nurse Hem Onc [facility] [address] [place] [address] 11/02/2023 12:45 PM EDT Hospital Encounter OR [facility], Operating Room [facility] [address] [place] [phone] Mariah Abdul MD [address] [place] [address] 11/02/2023 12:45 PM EDT - 11/02/2023 2:00 PM EDT Surgery OR [facility], Operating Room [facility] [address] [place] [phone] Mariah Abdul MD [address] [place] [address] INSERT TUNNELED CENTRAL VENOUS ACCESS WITH SUBQ PORT 11/08/2023 9:00 AM EDT Cardiac Studies [facility] Studies, [facility] [place] [address] 02/03/2024 10:30 AM EDT Telemedicine Genetics HemOnc, [facility] [address] [place] [address] Mabel [place], [place] [address] [place] [address] 03/16/2024 2:40 PM EDT Office Visit [facility] [address] [place] [address] Toby Bell MD [address], [place] [phone] 04/10/2024 10:30 AM EST Imaging Radiology, [address] [place] [address] Scheduled Procedures Name Priority Associated Diagnoses Date/Ti [...] filedocumented as of this encounter Care Teams Sales Product Manager Relationship Specialty Start Date End Date Toby Bell MD [address], [place] [phone] PCP - General Family Medicine 02/08/22 documented as of this encounter
--- OUTSIDE RECORDS SUMMARY | 2023-12-07 20:35 | External Medical Summary ---
Author Name Unknown Address Unknown Organization K09:[facility] [place] [address] Laboratory Report Ordering Provider Test Date Status LEANN ROWELL 10/28/2023 11:09:16 Final Observation Date Value Abnormality Reference (Units ) Status SYNC LEUKOCYTES IN BLOOD BY AUTOMATED COUNT 10/28/2023 11:09:16 2.82 Below low normal 4.00-10.80 (K/uL) Final Segs 10/28/2023 11:09:16 54.3 40.0-75.0 (%) Final Lymphs % 10/28/2023 11:09:16 28.7 18.0-42.0 (%) Final Monos 10/28/2023 11:09:16 15.2 Above high normal 1.0-11.0 (%) Final Eosinophils 10/28/2023 11:09:16 1.4 0.0-6.0 (%) Final Basos 10/28/2023 11:09:16 0.4 0.0-2.0 (%) Final Absolute Segs 10/28/2023 11:09:16 1.53 Below low normal 1.80-7.70 (K/uL) Final Lymphs, absolute 10/28/2023 11:09:16 0.81 Below low normal 1.00-4.80 (K/ul) Final Monos, Abs 10/28/2023 11:09:16 0.43 0.00-1.10 (K/uL) Final Eos, Abs 10/28/2023 11:09:16 0.04 0.00-0.70 (K/uL) Final Basos, Abs 10/28/2023 11:09:16 0.01 0.00-0.20 (K/uL) Final Performing Location [facility] [place] [address]
--- OUTSIDE RECORDS SUMMARY | 2023-12-07 20:35 | External Medical Summary | Summary of Care ---
Author Name Unknown Organization [facility] Address [address] [place] [address] Phone [phone] Care Team Providers Care Sales Porter Name Role Phone Toby Bell MD Primary Care Provider +1- [phone] Reason for Visit * Reason Onset Date Comments Appointment 10/28/2023 Encounter Details Date Type Department Care Team (Late st Contact Info) Description 10/28/2023 Telephone General Surgery, [facility] [address] [place] [address] Services, Scheduling [address] [place] [address] Appointment Allergies Active Allergy Reactions Criticality Noted Date Comments Guaifenesin & Derivatives 10/11/2000 Daily--hives Lisinopril Edema face/lips/tongue High 08/05/2021 documented as of this encounter (statuses as of 10/29/2023) Medications Medication Sig Dispensed Refills Start Date [...] as of this encounter (statuses as of 10/29/2023) Active Problems Problem Noted Date Diagnosed Date [...] as of this encounter (statuses as of 10/29/2023) Immunizations Name Administration Dates Next Due COVID-19 [...] encounter Miscellaneous Notes * Telephone Encounter - Mor Freeman OSA - 10/29/2023 8:54 AM EDT Patient has been notified of the message. Patient has been scheduled. * Telephone Encounter - Phyllis Colin OSA - 10/29/2023 8:18 AM EDT LMOM for patient's Niece, Adina. When scheduling, she can be scheduled with any provider. If nothingin Tilly, patient can be schedule in any surrounding location. 10/29/2023 * Telephone Encounter - Juliet Lambert LPN - 10/28/2023 3:29 PM EDT Talked to patients daughter and they went to appt to pcp for clearance and they said they didn't have an appt. They were wondering if they still needed the pre op clearance I said yes. And that Madalyn talked to your mother and she was to keep the appt and your mother cancelled it. I said we would try to get her to see pcp before Tuesday. Please make appt and talk to patients daughter. * Telephone Encounter - Roslyn Garcia OSA - 10/28/2023 2:57 PM EDT Pts Niece Adina calling in wondering if pt needs to have a pre op appointment before Tuesday? Loristating she was just seen at her PCP. Please call Adina Holden [phone] documented in this encounter Plan of Treatment Upcoming Encounters Date Type Department Care Team (Latest Contact Info) Description 10/31/2023 11:40 AM EDT Office Visit [facility] [address] [place] [facility] [place] [address] Favian Loomis MD [address] [place] [address] 11/02/2023 12:45 PM EDT Hospital Encounter OR [facility], Operating Room [facility] [address] [place] [phone] Mariah Abdul MD [address] [place] [address] 11/02/2023 12:45 PM EDT - 11/02/2023 2:00 PM EDT Surgery OR [facility], Operating Room [facility] [address] [place] [phone] Mariah Abdul MD [address] [place] [address] INSERT TUNNELED CENTRAL VENOUS ACCESS WITH SUBQ PORT 11/08/2023 9:00 AM EDT Cardiac Studies Cardiac Studies, [facility] [address] [place] [address] 02/03/2024 10:30 AM EDT Telemedicine Genetics HemOnc, [facility] [address] [place] [address] [place], [place] [address] [place] [address] 03/16/2024 2:40 PM EDT Office Visit [facility] [address] [place] [address] Toby Bell MD [address] [place] [address] 04/10/2024 10:30 AM EST Imaging Radiology, [address] [address] Scheduled Procedures Name Priority Associated Diagnoses Date/Ti [...] as of this encounter Care Teams Sales Porter Relationship Specialty Start Date End Date Toby Bell MD [address] [place] [address] PCP - General Family Medicine 02/08/22 documented as of this encounter
--- OUTSIDE RECORDS SUMMARY | 2023-12-07 20:35 | External Medical Summary | Summary of Care ---
Author Name Unknown Organization [facility] Address [address] [place] [address] Phone [phone] Care Team Providers Care Second Rigger Name Role Phone Toby Bell MD Primary Care Provider +1- [phone] Encounter Details Date Type Department Care Team (Late st Contact Info) Description 10/26/2023 Orders Only Hematology/Oncology Treatment, [place] [address] [place] [address] Nas Palacios MD [address] [place] [address] Allergies Active Allergy Reactions Criticality Noted Date [...] 10/28/2023 10:00 AM EDT Nurse Only Hematology/Oncology [facility] [place] [address] [facility] [place] [phone] [place], Nurse Hem Onc [facility] [address] [facility] [place] [address] 11/02/2023 12:45 PM EDT Hospital Encounter OR [facility], Operating Room [facility] [address] [place] [phone] Mariah Abdul MD [address] [place] [address] 11/02/2023 12:45 PM EDT - 11/02/2023 2:00 PM EDT Surgery OR [facility], Operating Room [facility] [address] [place] [phone] Mariah Abdul MD [address] [place] [address] INSERT TUNNELED CENTRAL VENOUS ACCESS WITH SUBQ PORT 11/08/2023 9:00 AM EDT Cardiac Studies Cardiac Studies, [facility] [address] [place] [address] 02/03/2024 10:30 AM EDT Telemedicine Genetics HemOnc, [facility] [address] [place] [address] Mabel [place], [place] [address] [place], [place] [phone] 03/16/2024 2:40 PM EDT Office Visit [facility] [address] [place] [address] Toby Bell MD [address] [place] [address] 04/10/2024 10:30 AM EST Imaging Radiology, [place] [id number] [facility] [address] Scheduled Procedures Name Priority Associated Diagnoses Date/Ti [...] filedocumented as of this encounter Care Teams Second Rigger Relationship Specialty Start Date End Date Toby Bell MD [address] [place] [address] PCP - General Family Medicine 02/08/22 documented as of this encounter
--- OUTSIDE RECORDS SUMMARY | 2023-12-07 20:35 | External Medical Summary | Summary of Care ---
Author Name Unknown Organization [facility] Address [address] [place] [address] Phone [phone] Care Team Providers Care Precision Jig Grinder Name Role Phone Toby Bell MD Primary Care Provider +1- [phone] Encounter Details Date Type Department Care Team (Late st Contact Info) Description 10/26/2023 Telephone [facility] General Surgery [address] [facility] [place] [address] Mariah Abdul MD [address] [place] [address] Allergies Active Allergy Reactions Criticality Noted Date [...] for antineoplastic chemotherapy 2023 Malignant neoplasm of upper- inner quadrant of [...] encounter Miscellaneous Notes * Telephone Encounter - Madalyn Lewis OSA - 10/26/2023 3:41 PM EDT Patient has an appointment on 10/27 for pre-op clearance. Do you want her to keep that appt? Also,if you can create the case for the port please. * Telephone Encounter - Mariah Abdul MD - 10/26/2023 2:51 PM EDT Madalyn, she is going to have chemo first. Can cancel her case on 11/01. Can you see if there is anyone else who can fill the spot? Thank you! ----- Message from Nas Palacios MD sent at 10/26/2023 11:36 AM EDT ----- FYI She agreed for neoadjuvant chemo. Nas documented in this encounter Plan of Treatment Upcoming Encounters Date Type Department Care Team (Latest Contact Info) Description 10/28/2023 10:00 AM EDT Nurse Only Hematology/Oncolog y [facility] [place] [address] [place] [address] Nurse Christina Hem Onc [address] [place] [address] 10/28/2023 3:00 PM EDT Office Visit [facility] [address] [facility], [place] [phone] Favian Loomis MD [address] [facility], [place] [address] 11/02/2023 7:15 AM EDT Cardiac Studies Cardiac Studies, [facility] [address] [place] [address] 11/02/2023 9:30 AM EDT Imaging [facility] 2nd Floor Cardiology, [place] [address] [place] [address] 11/02/2023 11:27 AM EDT Hospital Encounter OR [facility], Operating Room [facility] [address] [place] [phone] Mariah Abdul MD [address] [place] [address] 11/02/2023 11:27 AM EDT - 11/02/2023 1:34 PM EDT Surgery OR [facility], Operating Room [facility] [address] [place] [phone] Mariah Abdul MD [address] [place] [address] MASTECTOMY PARTIAL 11/02/2023 3:10 PM EDT Imaging Radiology [facility]st [facility] [address] [place] [address] 11/04/2023 9:15 AM EDT Scheduled Telephone General Surgery, [facility] [address] [place] [address] Nurse Heri Gen Surg [facility] [address] [place] [address] 11/17/2023 9:30 AM EDT Office Visit General Surgery, [facility] [address] [place] [address] Mariah Abdul MD [address] [place] [address] 02/03/2024 10:30 AM EDT Telemedicine Genetics HemOnc, [facility] [address] [place], [place] [address] Mabel Ford, [place] [address] [place], [place] [address] 03/16/2024 2:40 PM EDT Office Visit [facility] [address] [place] [address] Toby Bell MD [address] [place] [address] 04/10/2024 10:30 AM EST Imaging Radiology, [address] [address] Scheduled Procedures Name Priority Associated Diagnoses Date/Ti me MASTECTOMY PARTIAL Malignant neoplasm of upper-inner quadrant of left breast in female, estrogen receptor negative (HCC) 11/02/2023 11:27 AM EDT BIOPSY LYMPH NODE DEEP AXILLARY OPEN Malignant neoplasm of upper-inner quadrant of left breast in female, estrogen receptor negative (HCC) 11/02/2023 11:27 AM EDT INJECTION PROCEDURE FOR IDENTIFICATION SENTINEL NODE Malignant neoplasm of upper-inner quadrant of left breast in female, estrogen receptor negative (HCC) 11/02/2023 11:27 AM EDT Health Maintenance Due Date Last [...] filedocumented as of this encounter Care Teams Precision Jig Grinder Relationship Specialty Start Date End Date Toby Bell MD [address] [place] [address] PCP - General Family Medicine 02/08/22 documented as of this encounter
--- OUTSIDE RECORDS SUMMARY | 2023-12-07 20:35 | External Medical Summary | Summary of Care ---
Author Name Unknown Organization [facility] Address [address] [place] [address] Phone [phone] Care Team Providers Care Market President Name Role Phone Toby Bell MD Primary Care Provider +1- [phone] Reason for Visit * Reason Onset Date Comments Precert Future 10/26/2023 Keytruda, taxol, carbo--> keytruda, AC Encounter Details Date Type Department Care Team (Late st Contact Info) Description 10/26/2023 Telephone Hematology/Oncology Treatment, [place] [address] [place] [address] Nas Palacios MD [address] [place] [address] Precert Future (Keytruda, taxol, carbo--> ... Allergies [...] received for keytruda, carbo, taxol--> keytruda, AC [place] plan built. Waiting for auth. Consent signed 10/26/23. Nurse education 10/28/23. Will need hep B labs. Echo 11/02/23. Patient will need port- scheduled with gen surg 11/02/23. documented in this encounter Plan of Treatment Upcoming Encounters Date Type Department Care Team (Latest Contact Info) Description 10/31/2023 11:40 AM EDT Office Visit [facility] [address] [place] [facility] [place] [phone] SeptemberFavian MD [address] [place] [address] 11/02/2023 12:45 PM EDT Hospital Encounter OR [facility], Operating Room [facility] [address] [place] [phone] Mariah Abdul MD [address] [place] [address] 11/02/2023 12:45 PM EDT - 11/02/2023 2:00 PM EDT Surgery OR [facility], Operating Room [facility] [address] [place] [phone] Mariah Abdul MD [address] [place] [address] INSERT TUNNELED CENTRAL VENOUS ACCESS WITH SUBQ PORT 11/08/2023 9:00 AM EDT Cardiac Studies Cardiac Studies, [facility] [address] [place] [address] 02/03/2024 10:30 AM EDT Telemedicine Genetics HemOnc, [facility] [address] [place] [address] Mabel Ford, MS [address] [place] [address] 03/16/2024 2:40 PM EDT Office Visit [facility] [address] [place] [phone] Toby Bell MD [address] [place], [place] [phone] 04/10/2024 10:30 AM [facility] Imaging Radiology[address] [place] [address] Scheduled Orders Name Type Priority Associated Diagnoses [...] AND IGM (10/28/2023 11:09 AM EDT) Pathologist [facility] Hepatitis B Core Antibodies IgG and IgM Negative Negative 10/28/2023 8:59 PM EDT LABORATORY C Blood Venous blood specimen / Unknown Venipuncture / Unknown 10/28/2023 11:09 AM EDT 10/28/2023 11:09 AM EDT Nas Palacios MD LAB BLOOD ORDERA BLES Performing Organization Address City/[facility]/ZIP Co de Phone Number LABORATORY [facility] [address] [place] [address] * HEPATITIS B SURFACE ANTIGEN (10/28/2023 11:09 AM EDT) Pathologist [facility] Hepatitis B Surface Antigen Negative Negative 10/28/2023 8:59 PM EDT LABORATORY [facility] Blood Venous blood specimen / Unknown Venipuncture / Unknown 10/28/2023 11:09 AM EDT 10/28/2023 11:09 AM EDT Nas Palacios MD LAB BLOOD ORDERA BLES Performing Organization Address City/[facility]/ZIP Co de Phone Number LABORATORY [facility] [address] [place] [address] * HEPATITIS B SURFACE ANTIBODY (10/28/2023 11:09 AM EDT) Pathologist [facility] Hepatitis B Surface Antibody, Quantitative <3.5 mIU/mL 10/28/2023 8:59 PM EDT LABORATORY [facility] Hepatitis B Surface Antibody, Qualitative Negative 10/28/2023 8:59 PM EDT LABORATORY [facility] Hepatitis B Surface Antibody, Interpretation NOT immune to Hepatitis B Virus 10/28/2023 8:59 PM EDT LABORATORY [facility] Comment: POSITIVE: >=11.5 mIU/mL INDETERMINATE: 8.5-<11.5 mIU/mL NEGATIVE: <8.5 mIU/mL Blood Venous blood specimen / Unknown Venipuncture / Unknown 10/28/2023 11:09 AM EDT 10/28/2023 11:09 AM EDT Nas Palacios MD LAB BLOOD ORDERA BLES Performing Organization Address City/[facility]/ZIP Co de Phone Number LABORATORY [facility] [address] [place] [address] * TSH WITH FREE T4 IF INDICATED (10/28/2023 11:09 AM EDT) [facility] TSH 1.91 0.27 - 4.20 uIU/mL 10/28/2023 8:33 PM EDT LABORATORY [facility] Blood Venous blood specimen / Unknown Venipuncture / Unknown 10/28/2023 11:09 AM EDT 10/28/2023 11:09 AM EDT Nas Palacios MD LAB BLOOD ORDERA BLES LABORATORY [facility] [address] [place] [address] * (ABNORMAL) COMPREHENSIVE METABOLIC PANEL (10/28/2023 11:09 AM EDT) [facility] BUN 15 6 - 20 mg/dL 10/28/2023 11:38 AM EDT LABORATORY [place] 56-02 Creatinine 0.8 0.5 - 1.0 mg/dL 10/28/2023 11:38 AM EDT LABORATORY [place] 56-02 Estimated Glomerular Filtration Rate 75 >=60 mL/min 10/28/2023 11:38 AM T [facility] 56 Comment:eGFR is calculated b ased on the CKD-EPI 2020 equation Sodium 141 135 - 146 mmol/L 10/28/2023 11:38 AM T [address] Potassium 4.2 3.5 - 5.1 mmol/L 10/28/2023 11:[address] Chloride 108(H) 98 - 107 mmol/L 10/28/2023 11:38 AM EDT [address] CO2 23 22 - 32 mmol/L 10/28/2023 11:38 AM T [address] Anion Gap 10 7 - 15 mmol/L 10/28/2023 11:[address] Glucose 110 70 - 120 mg/dL 10/28/2023 11:[address] Albumin 4.1 3.8 - 5.0 g/dL 10/28/2023 11:[address] AST 21 10 - 35 U/L 10/28/2023 11:[address] Alkaline Phosphatase 68 35 - 130 U/L 10/28/2023 11:[address] Bilirubin, Total 0.3 <=1.2 mg/dL 10/28/2023 11:[address] Calcium 8.9 8.4 - 10.2 mg/dL 10/28/2023 11:[address] Protein 6.8 6.0 - 8.3 g/dL 10/28/2023 11:38 AM T [address] ALT 7(L) 10 - 35 U/L 10/28/2023 11:[address] Blood Venous blood specimen / Unknown Venipuncture / Unknown 10/28/2023 11:09 AM EDT 10/28/2023 11:09 AM EDT Nas Palacios MD LAB BLOOD ORDERA BLES [address] [place] [address] documented in this encounter Visit Diagnoses Diagnosis Malignant neoplasm of upper-inner quadrant of left breast in female, estrogen receptor negative (HCC)- Primary Malignant neoplasm of left breast in female, estrogen receptor negative (HCC)- Primary Malignant neoplasm of left breast in female, estrogen receptor negative, unspecified site of breast (HCC) documented in this encounter Care Teams Market President Relationship Specialty Start Date End Date Toby Bell MD [address] [place] [address] PCP - General Family Medicine 02/08/22 documented as of this encounter
--- OUTSIDE RECORDS SUMMARY | 2023-12-07 20:35 | External Medical Summary | Summary of Care ---
Author Name Unknown Organization [facility] Address [address] [place] [address] Phone [phone] Care Team Providers Care Clinical Professor Name Role Phone Toby Bell MD Primary Care Provider +1- [phone] Reason for Visit * Reason Onset Date Comments Appointment 10/24/2023 Encounter Details Date Type Department Care Team (Late st Contact Info) Description 10/24/2023 Telephone [facility] [address] [place] [address] Toby Bell MD [address] [place] [address] Appointment Allergies Active Allergy Reactions [...] encounter Miscellaneous Notes * Telephone Encounter - Vanda Henley LPN [...] State [place] [address] [place] [phone] Christina Nurse Hem Onc [facility] [address] [place] [address] 10/28/2023 3:00 PM EDT Office Visit [facility] [address] [facility], [place] [address] Favian Loomis MD [address] [facility] [address] 11/02/2023 7:15 AM EDT Cardiac Studies Cardiac Studies, [facility] [address] [place] [address] 11/02/2023 12:45 PM EDT Hospital Encounter OR [facility], Operating Room [facility] [address] [place] [phone] Mariah Abdul MD [address] [place] [address] 11/02/2023 12:45 PM EDT - 11/02/2023 2:00 PM EDT Surgery OR [facility], Operating Room [facility] [address] [place] [address] Mariah Abdlu MD [address] [place] [address] INSERT TUNNELED CENTRAL VENOUS ACCESS WITH SUBQ PORT 11/02/2023 3:10 PM EDT Imaging Radiology [address] [place] [address] 02/03/2024 10:30 AM EDT Telemedicine Genetics HemOnc, [facility] [address] [place] [address] Mabel Ford, [place] [address] [place] [address] 03/16/2024 2:40 PM EDT Office Visit [facility] [address] [facility] [place] [address] Toby Bell [facility] [address] [facility] [address] 04/10/2024 10:30 AM EST Imaging Radiology, [address] [place] [address] Scheduled Procedures Name Priority Associated Diagnoses Date/Ti [...] filedocumented as of this encounter Care Teams Clinical Professor Relationship Specialty Start Date End Date Toby Bell MD [address] [facility] [place] [address] PCP - General Family Medicine 02/08/22 documented as of this encounter
--- OUTSIDE RECORDS SUMMARY | 2023-12-07 20:35 | External Medical Summary | Summary of Care ---
Author Name Unknown Organization [facility] Address [address] [place] [address] Phone [phone] Care Team Providers Care Lead Process Engineer Name Role Phone Toby Bell MD Primary Care Provider +1- [phone] Reason for Visit * Reason Onset Date Comments Appointment 10/28/2023 Encounter Details Date Type Department Care Team (Late st Contact Info) Description 10/28/2023 Telephone General Surgery, [facility] [address] [place] [address] Services, Scheduling [address] [place] [address] Appointment Allergies Active Allergy Reactions Criticality Noted [...] be scheduled with any provider. If nothingin [place], patient can be schedule in any surrounding [...] have a pre op appointment before Tuesday? Lormony she was just seen at her PCP. Please call Adina [place] [phone] documented in this encounter Plan of Treatment Upcoming Encounters Date Type Department Care Team (Latest Contact Info) Description 11/02/2023 12:45 PM EDT Hospital Encounter OR [facility], Operating Room [facility] [address] [place] [phone] Mariah Abdul MD [address] [place] [address] 11/02/2023 12:45 PM EDT - 11/02/2023 2:00 PM EDT Surgery OR [facility], Operating Room [facility] [address] [place] [phone] Mariah Abdul MD [address] [place] [address] INSERT TUNNELED CENTRAL VENOUS ACCESS WITH SUBQ PORT 11/08/2023 9:00 AM EDT Cardiac Studies Cardiac Studies, [facility] [address] [place] [address] 02/03/2024 10:30 AM EDT Telemedicine Genetics HemOnc, [facility] [address] [place] [address] Mabel Ford, MS [address] [place], [place] [address] 03/16/2024 2:40 PM EDT Office Visit [facility] [address] [facility] [place] [phone] Toby Bell MD [address] [facility] [place] [address] 04/10/2024 10:30 AM EST Imaging Radiology, [address] [place] [address] Scheduled Procedures Name Priority Associated Diagnoses Date/Ti [...] filedocumented as of this encounter Care Teams Lead Process Engineer Relationship Specialty Start Date End Date Toby Bell MD [address] [place] [address] PCP - General Family Medicine 02/08/22 documented as of this encounter
--- OUTSIDE RECORDS SUMMARY | 2023-12-07 20:35 | External Medical Summary ---
Author Name Unknown Address Unknown Organization K09:[facility]- - [address] [place] [address] Laboratory Report Ordering Provider Test Date Status LEANN ROWELL 10/28/2023 11:09:16 Final Observation Date Value Abnormality Reference (Units ) Status BUN 10/28/2023 11:09:16 15 6-20 (mg/dL) Final Creatinine 10/28/2023 11:09:16 0.8 0.5-1.0 (mg/dL) Final Glomerular filtration rate/1.73 sq M.predicted [Volume Rate/Area] in Serum, Plasma or Blood by Creatinine-based formula (CKD-EPI) 10/28/2023 11:09:16 75 >=60 (mL/min) Final eGFR is calculated based on the CKD-EPI 2020 equation Sodium 10/28/2023 11:09:16 141 135-146 (m mol/L) Final Potassium 10/28/2023 11:09:16 4.2 3.5-5.1 (m mol/L) Final Cl 10/28/2023 11:09:16 108 Above high normal 98 -107 (mmol/L) Final CO2 10/28/2023 11:09:16 23 22-32 (mmo l/L) Final Anion gap 10/28/2023 11:09:16 10 7-15 (mmol /L) Final Glucose 10/28/2023 11:09:16 110 70-120 (mg /dL) Final Albumin 10/28/2023 11:09:16 4.1 3.8-5.0 (g /dL) Final AST (Aspartate aminotransferase) 10/28/2023 11:09:16 21 10-35 (U/L) Fin al Alk Phos 10/28/2023 11:09:16 68 35-130 (U/ L) Final Bilirubin, Total 10/28/2023 11:09:16 0.3 <=1 .2 (mg/dL) Final Calcium 10/28/2023 11:09:16 8.9 8.4-10.2 ( mg/dL) Final Protein 10/28/2023 11:09:16 6.8 6.0-8.3 (g /dL) Final ALT (Alanine aminotransferase) 10/28/2023 11:09:16 7 Below low normal 10-35 (U/L) Final Performing Location [facility]- 02 - [address] [place] [address]
--- OUTSIDE RECORDS SUMMARY | 2023-12-07 20:35 | External Medical Summary ---
Author Name Unknown Address Unknown Organization K01:LABORATORY C - [address] [place] [address] Laboratory Report Ordering Provider Test Date Status LEANN ROWELL 10/28/2023 11:09:16 Final Observation Date Value Abnormality Reference (Units ) Status Hep B surface Ag 10/28/2023 11:09:16 Negative Neg ative Final Performing Location [facility] - [address] [facility] [address]
--- OUTSIDE RECORDS SUMMARY | 2023-12-07 20:35 | External Medical Summary | Summary of Care ---
Author Name Unknown Organization [facility] Address [address] [place] [address] Phone [phone] Care Team Providers Care Maternity Nurse Name Role Phone Tboy Bell MD Primary Care Provider +1- [phone] Reason for Visit * Reason Onset Date Comments Appointment 10/24/2023 Encounter Details Date Type Department Care Team (Late st Contact Info) Description 10/24/2023 Telephone [facility] [address] [place] [address] Toby Bell MD [address] [place] [address] Appointment Allergies Active Allergy Reactions [...] Encounter OR [facility], Operating Room [facility] [address] [place] [address] Mariah Abdul MD [address] [place] [address] 11/02/2023 12:45 PM EDT - 11/02/2023 2:00 PM EDT Surgery OR [facility], Operating Room [facility] [address] [place] [phone] Mariah Abdul MD [address] [place] [address] INSERT TUNNELED CENTRAL VENOUS ACCESS WITH SUBQ PORT 11/08/2023 9:00 AM EDT Cardiac Studies Cardiac Studies, [facility] [address] [place] [address] 02/03/2024 10:30 AM EDT Telemedicine Genetics HemOnc, [facility] [address] [place] [address] Mabel Ford, MS [address] [place] [address] 03/16/2024 2:40 PM EDT Office Visit [facility] [address] [place] [phone] Toby Bell MD [address] [place] [address] 04/10/2024 10:30 AM EST Imaging Radiology, [address] [place] [address] Scheduled Procedures Name Priority Associated Diagnoses Date/Ti me INSERT TUNNELED CENTRAL VENOUS ACCESS WITH SUBQ PORT Malignant neoplasm of left breast in female, estrogen receptor negative, unspecified site of breast (HCC) 11/02/2023 12:45 PM EDT Health Maintenance Due Date Last Done Comments DXA Scan 1940 Albumin/Creatinine Ratio 09[birth year]16/1958 COVID-19 Vaccine (2022-24 season) 2023 09/16/2020, 08/15/2020 HbA1c 05/06/2023 11/04/2022 [...] filedocumented as of this encounter Care Teams Maternity Nurse Relationship Specialty Start Date End Date Toby Bell MD [address] [place] [address] PCP - General Family Medicine 02/08/22 documented as of this encounter
--- OUTSIDE RECORDS SUMMARY | 2023-12-07 20:35 | External Medical Summary | Summary of Care ---
Author Name Unknown Organization [facility] Address [address] [place] [address] Phone [phone] Care Team Providers Care Hammer Adjuster Name Role Phone Toby Bell MD Primary Care Provider +1- [phone] Encounter Details Date Type Department Care Team (Late st Contact Info) Description 10/26/2023 Telephone [facility] General Surgery [address] [facility] [place] [address] Mariah Abdul MD [address] [place] [address] Allergies Active Allergy Reactions Criticality [...] as of this encounter Miscellaneous Notes * Addendum Note - Mariah Abdul MD - 10/26/2023 3:49 PM EDTAddended by: MARIAH ABDUL on: 10/26/2023 03:49 PM Modules accepted: Orders * Telephone Encounter - Mariah Abdul MD - 10/26/2023 3:44 PM EDT Yes to keeping preop clearance. Will need for port also. Case created. Thank you. * Telephone Encounter - Madalyn Lewis OSA [...] 10/28/2023 10:00 AM EDT Nurse Only Hematology/Oncology [facility] [place] [address] [place] [phone] Christina, Nurse Hem Onc Scene [address] [place] [address] 10/28/2023 3:00 PM EDT Office Visit [facility] [address] [place] [address] Favian Loomis MD [address] [place] [address] 11/02/2023 7:15 AM EDT Cardiac Studies Cardiac Studies, [address] [place] [address] 11/02/2023 9:30 AM EDT Imaging [facility] 2nd Floor Cardiology, [address] [place] [address] 11/02/2023 3:10 PM EDT Imaging Radiology [facility] 1st Floor, [place] [facility] [place] [address] 11/04/2023 9:15 AM EDT Scheduled Telephone General Surgery, [address] [place] [address] Nurse Heri Gen Surg [address] [place] [address] 11/17/2023 9:30 AM EDT Office Visit General Surgery, [facility] [address] [place] [address] Mariah Abdul MD [address] [place] [address] 02/03/2024 10:30 AM EDT Telemedicine Genetics HemOnc, [facility] [address] [place], [place] [phone] Mabel Ford, MS [address] [place], [place] [address] 03/16/2024 2:40 PM EDT Office Visit Family [facility] [address] [place] [address] Toby Bell MD [address] [place] [address] 04/10/2024 10:30 AM EST Imaging Radiology, [address] [address] Scheduled Procedures Name Priority Associated Diagnoses Date/Ti [...] Foot Exam 10/10/2024 10/11/2023 GFR 10/12/2024 10/13/2023, 0609/2022, 02/08/2022, Additional history exists Diabetic Eye Exam [...] estrogen receptor negative, unspecified site of breast (HCC)- Primary documented in this encounter Care Teams Hammer Adjuster Relationship Specialty Start Date End Date Toby Bell MD [address] [place] [address] PCP - General Family Medicine 02/08/22 documented as of this encounter
--- OUTSIDE RECORDS SUMMARY | 2023-12-07 20:35 | External Medical Summary | Summary of Care ---
Author Name Unknown Organization [facility] Address [address] [place] [address] Phone [phone] Care Team Providers Care Spring Layer Name Role Phone Toby Bell MD Primary Care Provider +1- [phone] Reason for Visit * Reason Onset Date Comments Appointment 10/26/2023 Encounter Details Date Type Department Care Team (Late st Contact Info) Description 10/26/2023 Telephone Hematology/Oncology [facility] [address] [place] [address] Nas Palacios MD [address] [place] [address] Appointment Allergies Active Allergy Reactions Criticality Noted [...] Miscellaneous Notes * Telephone Encounter - Roslyn Ricks OSA - 10/26/2023 11:37 AM EDT Request Summary [[id number]] Procedure: SURGERY REFERRAL OP Status: Needs Scheduling ([id number] Pending) Requested appt date: Authorizing: Nas Palacios MD in HEM/ONC [facility] Referral: [id number] (Authorized) Priority: Within 10 days (routine) Diagnosis: Malignant neoplasm of upper-inner quadrant of left breast in female, estrogen re... Comments For port Order Specific Questions Referral Priority Within 10 days (routine) Where should this appointment be scheduled? [facility] What condition is the patient being seen for? General Surgery Conditions What condition is the patient being seen for? All other conditions Request History Action Date and Time User Details Request Created 10/26/2023 11:11 Nas Palacios MD Appointment Encounter, Details Workqueue Summary Current Workqueues Entry Current Tab GEN SURG RFL ORDERS [[id number]] 10/26/2023 11:11 Active Details documented in this encounter Plan of Treatment Upcoming Encounters Date Type Department Care Team (Latest Contact Info) Description 10/28/2023 10:00 AM EDT Nurse Only Hematology/Oncology [address] [place] [address] [place], Nurse Hem Onc [address] [place] [address] 10/28/2023 3:00 PM EDT Office Visit [facility] [address] [place] [facility] [place] [address] Faivan Loomis MD [address] [place] [facility] [place] [address] 11/02/2023 7:15 AM EDT Cardiac Studies Cardiac Studies, [facility] [address] [place] [address] 11/02/2023 12:45 PM EDT Hospital Encounter OR [facility], Operating Room [facility] [address] [place] [phone] Mariah Abdul MD [address] [place] [address] 11/02/2023 12:45 PM EDT - 11/02/2023 2:00 PM EDT Surgery OR OSS, Operating Room O[facility] [address] [place] [phone] Mariah Abdul MD [address] [place] [address] INSERT TUNNELED CENTRAL VENOUS ACCESS WITH SUBQ PORT 11/02/2023 3:10 PM EDT Imaging Radiology [facility] 1st [facility] [address] [place] [address] 02/03/2024 10:30 AM EDT Telemedicine Genetics HemOnc, [facility] [address] [place] [address] [place], [place] [address] [place] [address] 03/16/2024 2:40 PM EDT Office Visit [facility] [address] [facility] [address] Toby Bell MD [address] [place] [address] 04/10/2024 10:30 AM EST Imaging Radiology, [address] [place] [address] Scheduled Procedures Name Priority Associated Diagnoses Date/Ti [...] filedocumented as of this encounter Care Teams Spring Layer Relationship Specialty Start Date End Date Toby Bell MD [address] [place] [address] PCP - General Family Medicine 02/08/22 documented as of this encounter
--- OUTSIDE RECORDS SUMMARY | 2023-12-07 20:35 | External Medical Summary | Summary of Care ---
Author Name Unknown Organization [facility] Address [address] [place] [address] Phone [phone] Care Team Providers Care Marketing Professor Name Role Phone Toby Bell MD Primary Care Provider +1- [phone] Encounter Details Date Type Department Care Team (Late st Contact Info) Description 10/26/2023 Telephone [facility] General Surgery [address] [facility] [place] [address] Mariah Abdul MD [address] [place] [address] Allergies Active Allergy Reactions Criticality [...] 10/28/2023 10:00 AM EDT Nurse Only Hematology/Oncology [address] [place] [address] [place], Nurse Hem Onc Sc[address] [place] [address] 10/28/2023 3:00 PM EDT Office Visit [facility] [address] [place] [phone] Favian Loomis MD [address] [place] [address] 11/02/2023 7:15 AM EDT Cardiac Studies Cardiac Studies, [facility] [address] [facility] [place] [address] 11/02/2023 9:30 AM EDT Imaging [facility] II 2nd Floor Cardiology, [place] [address] [facility] [place] [address] 11/02/2023 3:10 PM EDT Imaging Radiology [facility] 1st [facility], [place] [address] [facility] [place] [address] 11/04/2023 9:15 AM EDT Scheduled Telephone General Surgery, [facility] [address] [facility] [place] [address] Nurse Heri Gen Surg [facility] 132 [facility] [place] [address] 11/17/2023 9:30 AM EDT Office Visit General Surgery, [facility] [address] [facility] [place] [address] Mariah Abdul MD [address] [facility] [place] [address] 02/03/2024 10:30 AM EDT Telemedicine Genetics HemOnc, [facility] [address] [place] [address] [place], [address] [place] [address] 03/16/2024 2:40 PM EDT Office Visit [facility] [address] [place] [address] Toby Bell MD [address] [place], [place] [address] 04/10/2024 10:30 AM EST Imaging Radiology, [address] [place] [address] Scheduled Procedures Name Priority Associated Diagnoses Date/Ti [...] Primary documented in this encounter Care Teams Marketing Professor Relationship Specialty Start Date End Date Toby Bell MD [address] [place] [address] PCP - General Family Medicine 02/08/22 documented as of this encounter
--- OUTSIDE RECORDS SUMMARY | 2023-12-07 20:35 | External Medical Summary | Summary of Care ---
Author Name Unknown Organization [facility] Address [address] [place] [address] Phone [phone] Care Team Providers Care Tube Coater Name Role Phone Toby Bell MD Primary Care Provider +1- [phone] Encounter Details Date Type Department Care Team (Late st Contact Info) Description 10/28/2023 Orders Only PATIENT PORTAL DO NOT DELETE THIS DEPT USED BY [place] GARRISON [address] Allergies Active Allergy Reactions Criticality Noted Date [...] 10/28/2023 10:00 AM EDT Nurse Only Hematology/Oncology [facility] [place] [address] [place] [address] [place], Nurse Hem Onc [facility] [address] [place] [address] 11/02/2023 12:45 PM EDT Hospital Encounter OR [facility], Operating Room [facility] [address] [place] [phone] Mariah Abdul MD [address] [place] [address] 11/02/2023 12:45 PM EDT - 11/02/2023 2:00 PM EDT Surgery OR [facility], Operating Room [facility] [address] [place] [phone] Mariah Abdul MD [address] [place] [address] INSERT TUNNELED CENTRAL VENOUS ACCESS WITH SUBQ PORT 11/08/2023 9:00 AM EDT Cardiac Studies Cardiac Studies, [facility] [address] [place] [address] 02/03/2024 10:30 AM EDT Telemedicine Genetics HemOnc, [facility] [address] [place] [address] [place], [place] [address] [place] [address] 03/16/2024 2:40 PM EDT Office Visit Family [facility] [address] [place] [address] Toby Bell MD [address] [place] [address] 04/10/2024 10:30 AM EST Imaging Radiology, [address] [place] [address] Scheduled Procedures Name Priority Associated Diagnoses Date/Ti [...] filedocumented as of this encounter Care Teams Tube Coater Relationship Specialty Start Date End Date Toby Bell MD [address] [place] [address] PCP - General Family Medicine 02/08/22 documented as of this encounter
--- OUTSIDE RECORDS SUMMARY | 2023-12-07 20:35 | External Medical Summary | Summary of Care ---
Author Name Unknown Organization [facility] Address [address] [place] [address] Phone [phone] Care Team Providers Care Ground Products Director Name Role Phone Toby Bell MD Primary Care Provider +1- [phone] Reason for Visit * Reason Onset Date Comments Appointment 10/24/2023 Encounter Details Date Type Department Care Team (Late st Contact Info) Description 10/24/2023 Telephone [facility] [address] [place] [address] Toby Bell MD [address] [place] [address] Appointment Allergies Active Allergy Reactions [...] encounter Miscellaneous Notes * Telephone Encounter - Toby Bell MD [...] 10/28/2023 10:00 AM EDT Nurse Only Hematology/Oncology [facility] [place] [address] [place] [phone] [place], Nurse Hem Onc [facility] [address] [facility] [place] [address] 10/28/2023 3:00 PM EDT Office Visit [facility] [address] [facility] [place] [phone] Favian Loomis MD [address] [place] [address] 11/02/2023 7:15 AM EDT Cardiac Studies Cardiac Studies, [facility] [address] [facility] [address] 11/02/2023 9:30 AM EDT Imaging [facility] II 2nd Floor Cardiology, [place] [address] [facility] [address] 11/02/2023 3:10 PM EDT Imaging Radiology [facility] 1st Floor, [place] [facility] [address] 11/04/2023 9:15 AM EDT Scheduled Telephone General Surgery, [address] [place] [address] [facility], Nurse Gen Surg [address] [place] [address] 11/17/2023 9:30 AM EDT Office Visit General Surgery, [facility] [address] Mariah Abdul MD [address] [place] [address] 02/03/2024 10:30 AM EDT Telemedicine Genetics HemOnc, [facility] [address] [place] [address] [place], [place] [address] [place] [address] 03/16/2024 2:40 PM EDT Office Visit [facility] [address] [place] [phone] Toby Bell MD [address] [place] [address] 04/10/2024 10:30 AM EST Imaging Radiology, [address] [place] [address] Scheduled Procedures Name Priority Associated Diagnoses Date/Ti me INSERT TUNNELED CENTRAL VENO US ACCESS WITH SUBQ PORT Malignant neoplasm of left breast in female, estrogen receptor negative, unspecified site of breast (HCC) Health Maintenance Due Date Last Done Comments DXA Scan 1940 Albumin/Creatinine Ratio 09[birth year]16/1958 COVID-19 Vaccine (3 - season) 2023 09/16/2020, 08/15/2020 HbA1c 05/06/2023 [...] filedocumented as of this encounter Care Teams Ground Products Director Relationship Specialty Start Date End Date Toby Bell MD [address] [place], [place] [phone] PCP - General Family Medicine 02/08/22 documented as of this encounter
--- OUTSIDE RECORDS SUMMARY | 2023-12-07 20:36 | External Medical Summary | Summary of Care ---
Author Name Unknown Organization [facility] Address [address] [place] [address] Phone [phone] Care Team Providers Care Field Project Manager Name Role Phone Toby Bell MD Primary Care Provider +1- [phone] Reason for Visit * Reason Onset Date Comments No Show 10/24/2023 Encounter Details Date Type Department Care Team (Late st Contact Info) Description 10/24/2023 Telephone Hematology/Oncology [facility] [place] [address] [place] [address] Nas Palacios MD [address] [place] [address] No Show Allergies Active Allergy Reactions Criticality Noted Date Comments Guaifenesin & Derivatives 10/11/2000 Daily--hives Lisinopril Edema face/lips/tongue High 08/05/2021 documented as of this encounter (statuses as of 10/25/2023) Medications Medication Sig Dispensed Refills Start Date [...] as of this encounter (statuses as of 10/25/2023) Active Problems Problem Noted Date Diagnosed Date Malignant neoplasm of upper- inner quadrant of [...] as of this encounter (statuses as of 10/25/2023) Immunizations Name Administration Dates Next Due COVID-19 [...] Telephone Encounter - Roslyn Renae OSA - 10/25/2023 1:13 PM EDT Called again pt answered and they are aware of apt for tomorrow * Telephone Encounter - Roslyn Renae OSA - 10/25/2023 1:03 PM EDT Added apt for tomorrow called pt and no answer will call again in 5 * Telephone Encounter - Roslyn Ricks OSA - 10/25/2023 8:34 AM EDT i just got off the phone with her she is going to call back with what the surgeon says. Okay to set up new pt apt after surgery -per Suzanne * Telephone Encounter - Maria L Borrego MED ASSIST - 10/24/2023 3:39 PM EDT Please contact patient to reschedule new patient appt with . thank you. documented in this encounter Plan of Treatment Upcoming Encounters Date Type Department Care Team (Latest Contact Info) Description 10/26/2023 10:30 AM EDT Office Visit Hematology/Oncolog y [facility] [place] [address] [place] [phone] Nas Palacios MD [address] [place] [address] 10/28/2023 3:00 PM EDT Office Visit [facility] [address] [facility] [address] Favian Loomis MD [address] [place] [address] 11/02/2023 9:30 AM EDT Imaging [facility] 2nd Floor Cardiology, [place] [address] [place] [address] 11/02/2023 10:48 AM EDT Hospital Encounter OR [facility], Operating Room [facility] [address] [place] [phone] Mariah Abdul MD [address] [place] [address] 11/02/2023 10:48 AM EDT - 11/02/2023 12:55 PM EDT Surgery OR [facility], Operating Room [facility] [address] [place] [phone] Mariah Abdul MD [address] [place] [address] MASTECTOMY PARTIAL 11/02/2023 3:10 PM EDT Imaging Radiology [facility] 1st [facility], [place] [address] [place] [address] 11/04/2023 9:15 AM EDT Scheduled Telephone General Surgery, [facility] [address] [place] [address] [place], Nurse Gen Surg [facility] [address] [place] [address] 11/17/2023 9:30 AM EDT Office Visit General Surgery, [facility] [address] [place] [address] Mariah Abdul MD [address] [place] [address] 02/03/2024 10:30 AM EDT Telemedicine Genetics HemOn, [address] [address] [place], [place] [address] [place] [address] 03/16/2024 2:40 PM EDT Office Visit [facility] [address] [place] [address] Toby Bell MD [address] [place] [address] 04/10/2024 10:30 AM [facility] Imaging Radiology, [address] [address] Scheduled Procedures Name Priority Associated Diagnoses Date/Ti me MASTECTOMY PARTIAL Malignant neoplasm of upper-inner quadrant of left breast in female, estrogen receptor negative (HCC) 11/02/2023 10:48 AM EDT BIOPSY LYMPH NODE DEEP AXILLARY OPEN Malignant neoplasm of upper-inner quadrant of left breast in female, estrogen receptor negative (HCC) 11/02/2023 10:48 AM EDT INJECTION PROCEDURE FOR IDENTIFICATION SENTINEL NODE Malignant neoplasm of upper-inner quadrant of left breast in female, estrogen receptor negative (HCC) 11/02/2023 10:48 AM EDT Health Maintenance Due Date Last [...] filedocumented as of this encounter Care Teams Field Project Manager Relationship Specialty Start Date End Date Toby Bell MD [address] [place] [address] PCP - General Family Medicine 02/08/22 documented as of this encounter
--- OUTSIDE RECORDS SUMMARY | 2023-12-07 20:36 | External Medical Summary | Summary of Care ---
Author Name Unknown Organization [facility] Address [address] [place] [address] Phone [phone] Care Team Providers Care Director Of Exhibit Development Name Role Phone Toby Bell MD Primary Care Provider [phone] Reason for Referral * Precert (Within 10 days (routine)) - Authorized Specialty Diagnoses / Procedures Referred By Contac t Referred To Contact Cardiac Studies Diagnoses Malignant neoplasm of upper-inner quadrant of left breast in female, estrogen receptor negative (HCC) Procedures ECHO, COMPLETE (2D), TRANS-THORACIC Nas Palacios MD [address] [place] [address] Referral ID Status Reason Start Date Expiration Date V isits Requested Visits Authorized [id number] Authorized Precert 10/26/2023 999 999 * Evaluate & Treat - Unlimited Visits (Within 10 days (routine)) - Authorized Specialty Diagnoses / Procedures Referred By Contac t Referred To Contact General Surgery Diagnoses Malignant neoplasm of upper-inner quadrant of left breast in female, estrogen receptor negative (HCC) Nas Palacios MD [address] [place] [address] Referral ID Status Reason Start Date Expiration Date Visits Requested Visits Authorized [id number] Authorized Specialty Services Required 10/26/2023 999 999 Question Answer Referral Priority Within 10 days (routine) Where should this appointment be scheduled? [facility] What condition is the patient being seen for? General Surgery Conditions What condition is the patient being seen for? All other conditions Comments For port Reason for Visit * Reason Comments NEW PATIENT * Evaluate & Treat - Unlimited Visits (Within 10 days (routine)) - Authorized Specialty Diagnoses / Procedures Referred By Contac t Referred To Contact Hematology/Oncology / Hematology Oncology Diagnoses Malignant neoplasm of upper-inner quadrant of left breast in female, estrogen receptor negative (HCC) Mariah Abdul MD [address] [place] [address] Referral ID Status Reason Start Date Expiration Date Visits Requested Visits Authorized [id number] Authorized Specialty Services Required 10/13/2023 999 999 Encounter Details Date Type Department Care Team (Late st Contact Info) Description 10/26/2023 10:30 AM EDT Office Visit Hematology/Oncology [facility] [address] [place] [phone] Nas Palacios MD [address] [place] [address] Malignant neoplasm of upper-inner quadrant of left [...] Sign Reading Time Taken Comments Blood Pressure 189/83 10/26/2023 10:29 AM EDT Pulse 69 10/26/2023 10:29 AM EDT Temperature 36.7 C (98 F) 10/26/2023 10:29 AM EDT Respiratory Rate 16 10/26/2023 10:29 AM EDT Oxygen Saturation 94% 10/26/2023 10:29 AM EDT Inhaled Oxygen Concentration - - Weight 62.8 kg (138 lb 8 oz) 10/26/2023 10:29 AM EDT Height 170.2 cm (5' 7") 10/26/2023 10:29 AM EDT Body Mass Index 21.69 10/26/2023 10:29 AM EDT documented in this encounter Progress Notes * Nas Palacios MD - 10/26/2023 10:44 AM EDT Outpatient Consult Note Data Source: Patient, Epic record. 10/26/2023 10:44 AM Humaira Stack [id number] 83 year old MD Toby De Luna MD Patient Encounter: HEMATOLOGY/ONCOLOGY [facility] Reason for consult: Malignant neoplasm of upper-inner quadrant of left breast in female, estrogen receptor negative. HPI: 83-year-old female with history significant for hypertension and prediabetic and hyperlipidemia referred with the about diagnosis. She had episode of fall in October and during this she noticed mass in the left breast. She would diagnostic mammogram and ultrasound done on 10/03/2023 which revealed Oval-shaped mass within the left upper inner quadrant measuring 32 x 23 mm is noted. Targeted ultrasound demonstrates a corresponding hypoechoic solid mass left breast ten o'clock 7 cm from the nipple measuring 31 x 19 x 22 mm. Left axillary lymph nodes are normal in appearance. She had biopsy from the mass was done on 10/03/2023 and pathology is consistent with invasive mammary carcinoma grade 3, ER weakly positive with 1% nuclear positivity and NE negative and HER2 Angelita negative. Final Diagnosis A. Left breast, 10 o'clock 7 cm from the nipple, needle core biopsy: -- Invasive mammary carcinoma, grade 3. -- See comment. Comment: This tumor has ductal and metaplastic differentiation Estrogen Receptor (ER) protein expression is WEAKLY POSITIVE 1% nuclear positivity Progesterone Receptor (NE) protein expression is NEGATIVE HER2 oncoprotein expression is NEGATIVE Clinically she is in excellent performance status and looking younger than her age and physically active. Denies any headache, dizziness, blurred vision, chest pain palpitation abdominal pain or distention, nausea, vomiting, fever, night sweats, new bone pain, hematuria, hematochezia, weight loss. She denies smoking or drinking. Family history significant for maternal uncle was diagnosed of throat cancer. Several members from the father's side were diagnosed of cancer of unknown type. Father was diagnosed of multiple sclerosis. Past Medical History: Diagnosis Date Macular degeneration Undiagnosed cardiac murmurs Current Outpatient Medications Medication Sig Dispense Refill OCUVITE OR TABS 1 TABLET DAILY 30 0 Atorvastatin Calcium 40 MG Oral Tablet (Lipitor) Take 1 Tablet by mouth in the morning. 90 Tablet 3 Losartan Potassium 50 MG Oral Tablet (Cozaar) Take 1.5 Tablets by mouth in the morning. 135 Tablet 3 No current facility-administered medications for this visit. 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 Tobacco Use Smoking status: Never Passive exposure: [...] on file Housing Stability: Not on file Family History Problem Relation Name Age of Onset Diabetes Mother Heart Disorder Mother Bypass Other (Hyperlipidemia) Mother Neurological Disorder Father Multiple sclerosis Diabetes Grandmother (Maternal) Heart Disorder Grandmother (Maternal) Heart Disorder Aunt (Unspecified) Heart Disorder Uncle (Unspecified) Heart Disorder Uncle (Unspecified) Heart Disorder Uncle (Unspecified) Heart Disorder Uncle (Unspecified) NH Cancer Uncle (Unspecified) throat Cancer Uncle (Unspecified) Cancer Uncle (Unspecified) Cancer Uncle (Unspecified) Other (Other) Son Lupus REVIEW OF SYSTEMS: General: No Fever, chills, night sweats, or weight loss. HEENT: No change in visual acuity, blurred or double vision. No epistaxis, facial pain, nasal discharge or change in hearing. Denies dysphagia, no muscosal ulceration, or sores noted. Cardiovascular: No chest pain, POWELL, or palpitations Respiratory: No shortness of breath, cough, hemoptysis, or pleuritic chest pain Gastrointestinal: No abdominal pain, nausea, vomiting, diarrhea, rectal pain or bleeding Genitourinary: Denies Hematuria or dysuria Musculoskeletal: No bone pain Skin: No skin rash or lesions noted Neurologic: No numbness, weakness, neuropathic pain or change in cognitive function Psychiatric: No vegetative signs of depression Endocrine: No symptoms of hypothyroidism or hyperglycemia Hematologic: No bleeding or lymph nodes noted As mentioned above, all other systems were reviewed in full and are unremarkable. Review of patient's allergies indicates: Allergen Reactions Lisinopril Edema face/lips/tongue Guaifenesin & Derivatives Dristan--hives PHYSICAL EXAMINATION: General Appearance: Healthy appearing patient in no acute distress BP 189/83 (BP Site: Left Arm, BP Position: Sitting, BP Cuff Size: Regular) | Pulse 69 | Temp 36.7 C (98 F) (Tympanic) | Resp 16 | Ht 1.702 m (5' 7") | Wt 62.8 kg (138 lb 8 oz) | SpO2 94% | BMI 21.69 kg/m | BSA 1.72 m Vitals were reviewed. HEENT: No oral or pharyngeal masses, ulceration or thrush noted, no sinus tenderness. Neck is supple with no thyromegaly or JVD noted. Lymph Nodes: No lymphadenopathy noted in the occipital, pre and post auricular, cervical, supra andinfraclavicular, axillary, epitrochlear, inguinal, and popliteal region. Lungs/Thorax: Clear to auscultation, no accessory muscles of respiration being used. Heart: Regular rate and rhythm, normal S1, S2. On the left breast there is a 3 by 2 cm palpable mass Abdomen: Soft, nontender, bowel sounds present, no appreciable hepatosplenomegaly, no palpable masses Extremeties: Good pulses bilaterally, no peripheral edema. ASSESSMENT: 83-year-old female with a history of hypertension, prediabetic and hyperlipidemia recently diagnosed of left breast cancer. She had mammogram and ultrasound done which revealed 32 x 23 mm is noted. Targeted ultrasound demonstrates a corresponding hypoechoic solid mass left breast ten o'clock 7 cm from the nipple measuring 31 x 19 x 22 mm. Left axillary lymph nodes are normal in appearance. Biopsyfrom the masses consistent with invasive mammary carcinoma, grade 3 with metaplastic differentiation. ER is weakly positive (1% nuclear positive), NE and HER2 Angelita negative. Patient has clinically staging cT2 cN0 MX disease. She has aggressive disease with metaplastic differentiation. ER is weakly positive and NE and HER2 Angelita negative. This type of tumor is considered triple negative and because of the aggressive behavior chemotherapy is indicated. The benefit of neoadjuvant chemotherapy include evaluating the responseand activity of the chemotherapy and if there is a good response can help to limit the extent of surgery. Discussed with the patient and niece in detail about diagnosis and prognosis and reviewed all the available blood tests and pathology reports with them. She will benefit with neoadjuvant chemotherapyincluding combination of weekly Taxol carboplatin plus Keytruda followed by AC plus Keytruda. Discussed with them about the benefit, risk, side effects, toxicity and the rationale of neoadjuvant chemotherapy. After detailed discussion she agreed to proceed with treatment signed the consent form. I will also refer her to Surgical team for the placement of the Port-A-Cath. She will also have baseline echocardiogram. PLAN: As above. She will return to clinic for follow-up in 2 weeks after starting chemotherapy. The patient voiced understanding of all of the above. All questions and concerns were addressed in an apparently satisfactory manner. Nas Palacios MD (This note was completed using the dictation program Fluency Direct. As such, there may be misspellings, word substitutions, or other variations that should not change the essence of the clinical content of this encounter note. If there is need for further clarification, please direct questions to me.) documented in this encounter Nursing Notes * Demi Preciado MED ASSIST - 10/26/2023 10:31 AM EDT Patient identifed by name and birthdate Do you have any concerns about pain management for today's visit? Yes. Patient instructed to discuss pain concerns with provider during the visit today Living Will or Advance Directive for Health Care as noted on the problem list. [facility] is a way you can talk to your provider on line through e-mail. Would you like to sign up? I can activate it for you? NO Filed Vitals: 10/26/23 1029 BP: 189/83 Pulse: 69 Resp: 16 Temp: 36.7 C (98 F) TempSrc: Tympanic SpO2: 94% Weight: 62.8 kg (138 lb 8 oz) Height: 1.702 m (5' 7") Patient was instructed to not get up on the exam table/exam chair until directed and assisted by their provider; patient is to remain seated in the chair/ wheelchair/ exam table/ exam chair for fall prevention and safety reasons. Patient is aware to have assistance to step down off exam table/exam chair with personnel. Patient voiced full comprehension of instructions. documented in this encounter Miscellaneous Notes * Oncology Pathways Update - Nas Palacios MD - 10/26/2023 11:01 AM EDT START ON PATHWAY REGIMEN - Breast [id number]: Pembrolizumab 200 mg D1 + Paclitaxel 80 mg/m D1, 8, 15 + Carboplatin AUC=1.5 D1, 8, 15 q21 Days x 12 Weeks, Followed by Pembrolizumab 200 mg + Doxorubicin + Cyclophosphamide q21 Days x 12 Weeks, Followed by Surgery Cycles 1 through 4: A cycle is every 21 days: Pembrolizumab (Keytruda) 200 mg flat dose IV once on day 1 of cycles 1 through 4 Paclitaxel 80 mg/m IV once daily on days 1, 8, and 15 of cycles 1 through 4 Carboplatin AUC=1.5 IV once daily on days 1, 8, and 15 of cycles 1 through 4 Filgrastim-xxxx 5 mcg/kg subcutaneously once daily on days 16, 17, and 18 of cycles 1 through 4 Cycles 5 through 8: A cycle is every 21 days: Pembrolizumab (Keytruda) 200 mg flat dose IV once on day 1 of cycles 5 through 8 Doxorubicin 60 mg/m IV once on day 1 of cycles 5 through 8 Cyclophosphamide 600 mg/m IV once on day 1 of cycles 5 through 8 Pegfilgrastim-xxxx 6 mg flat dose subcutaneously once on day 2 of cycles 5 through 8 Always confirm dose/schedule in your pharmacy ordering system Citations: -Dona P, Ar J, James Jarrett, et al. Pembrolizumab for Early Triple-Negative Breast Cancer. N Engl J Med. 2020;382(9):810-821. doi:10.1056/QWBKus4732629. URL: https://pubmed.ncbi.nlm.nih.gov/50842350/ Patient Characteristics: Preoperative or Nonsurgical Candidate, M0 (Clinical Staging), Up to cT4c, Any N, M0, Neoadjuvant Therapy followed by Surgery, Invasive Disease, Chemotherapy, HER2 Negative, ER Negative, [place] Therapy Indicated and Candidate for Checkpoint Inhibitor Therapeutic Status: Preoperative or Nonsurgical Candidate, M0 (Clinical Staging) AJCC M Category: cM0 AJCC Grade: G3 ER Status: Negative (-) AJCC 8 Stage Grouping: IIB HER2 Status: Negative (-) AJCC T Category: cT2 AJCC N Category: cN0 NE Status: Negative (-) Breast Surgical Plan: Neoadjuvant Therapy followed by Surgery Intent of Therapy: Curative Intent, Discussed with Patient * Oncology Pathways Notification - Nas Palacios MD - 10/26/2023 11:01 AM EDT A new patient decision has been made in [facility]. Details of this patient have been provided below: Patient Information: Name: Humaira Stack : 1940 Provider Name: Nas Palacios Disease: Breast Pathway Followed: Breast, Preoperative or Nonsurgical Candidate, M0 (Clinical Staging), Up to cT4c,Any N, M0, Neoadjuvant Therapy followed by Surgery, Invasive Disease, Chemotherapy, HER2 Negative, ER Negative, [place] Therapy Indicated and Candidate for Checkpoint Inhibitor Patient Characteristics: Preoperative or Nonsurgical Candidate, M0 (Clinical Staging), Up to cT4c, Any N, M0, Neoadjuvant Therapy followed by Surgery, Invasive Disease, Chemotherapy, HER2 Negative, ER Negative, [place] Therapy Indicated and Candidate for Checkpoint Inhibitor Therapeutic Status: Preoperative or Nonsurgical Candidate, M0 (Clinical Staging) AJCC M Category: cM0 AJCC Grade: G3 ER Status: Negative (-) AJCC 8 Stage Grouping: IIB HER2 Status: Negative (-) AJCC T Category: cT2 AJCC N Category: cN0 NE Status: Negative (-) Breast Surgical Plan: Neoadjuvant Therapy followed by Surgery Intent of Therapy: Curative Intent, Discussed with PatientTreatment Details: START ON PATHWAY REGIMEN [id number]: Pembrolizumab 200 mg D1 + Paclitaxel 80 mg/m D1, 8, 15 + Carboplatin AUC=1.5 D1, 8, 15 q21 Days x 12 Weeks, Followed by Pembrolizumab 200 mg + Doxorubicin + Cyclophosphamide q21 Days x 12 Weeks, Followed by Surgery Cycles 1 through 4: A cycle is every 21 days: Pembrolizumab (Keytruda) 200 mg flat dose IV once on day 1 of cycles 1 through 4 Paclitaxel 80 mg/m IV once daily on days 1, 8, and 15 of cycles 1 through 4 Carboplatin AUC=1.5 IV once daily on days 1, 8, and 15 of cycles 1 through 4 Filgrastim-xxxx 5 mcg/kg subcutaneously once daily on days 16, 17, and 18 of cycles 1 through 4 Cycles 5 through 8: A cycle is every 21 days: Pembrolizumab (Keytruda) 200 mg flat dose IV once on day 1 of cycles 5 through 8 Doxorubicin 60 mg/m IV once on day 1 of cycles 5 through 8 Cyclophosphamide 600 mg/m IV once on day 1 of cycles 5 through 8 Pegfilgrastim-xxxx 6 mg flat dose subcutaneously once on day 2 of cycles 5 through 8 Always confirm dose/schedule in your pharmacy ordering system Citations: -Dona P, Ar J, James L, et al. Pembrolizumab for Early Triple-Negative Breast Cancer. N Engl J Med. 2020;382(9):810-821. doi:10.1056/[id number]. URL: https://pubmed.ncbi.nlm.nih.gov/73041613/ documented in this encounter Plan of Treatment Upcoming Encounters Date Type Department Care Team (Latest Contact Info) Description 10/28/2023 10:00 AM EDT Nurse Only Hematology/Oncolog y Scenery [place] [address] [place] [phone] Christina, Nurse Hem Onc Scenery [address] [place] [address] 10/28/2023 3:00 PM EDT Office Visit [facility] [address] [place] [phone] Favian Loomis MD [address] [place] [address] 11/02/2023 7:15 AM EDT Cardiac Studies Cardiac Studies, [facility] [address] [facility] [place] [address] 11/02/2023 9:30 AM EDT Imaging [facility] 2nd Floor Cardiology, [place] [address] [facility] [place] [address] 11/02/2023 11:27 AM EDT Hospital Encounter OR [facility], Operating Room [facility] [address] [place] [phone] Mariah Abdul MD [address] [place] [address] 11/02/2023 11:27 AM EDT - 11/02/2023 1:34 PM EDT Surgery OR [facility], Operating Room [facility] [address] [place] [phone] Mariah Abdul MD [address] [place] [address] MASTECTOMY PARTIAL 11/02/2023 3:10 PM EDT Imaging Radiology [facility] [address] [facility] [place] [address] 11/04/2023 9:15 AM EDT Scheduled Telephone General Surgery, [facility] [address] [facility] [place] [address] [facility], Nurse Gen Surg [facility] [address] [facility] [place] [address] 11/17/2023 9:30 AM EDT Office Visit General Surgery, [facility] [address] [facility] [place] [address] [facility]riah Abdul [facility] [place] [address] 02/03/2024 10:30 AM EDT Telemedicine Genetics HemOnc, [facility] [address] [place] [address] [place], [place] [address] [place] [address] 03/16/2024 2:40 PM EDT Office Visit [facility] [address] [place] [phone] Toby Bell MD [address] [place] [address] 04/10/2024 10:30 AM EST Imaging Radiology, [address] [address] Scheduled Orders Name Type Priority Associated Diagnoses Orde r Schedule ECHO, COMPLETE (2D), TRANS-THORACIC Echocardiology Routine Malignant neoplasm of upper-inner quadrant of left breast in female, estrogen receptor negative (HCC) Expected: 10/26/2023 (Approximate), Expires: 11/24/2025 Scheduled Procedures Name Priority Associated Diagnoses Date/Ti [...] receptor negative (HCC) 11/02/2023 11:27 AM EDT Scheduled Referrals Name Type Priority Associated Diagnoses Orde r Schedule SURGERY REFERRAL OP Referral Within 10 da ys (routine) Malignant neoplasm of upper-inner quadrant of left breast in female, estrogen receptor negative (HCC) Ordered: 10/26/2023 Health Maintenance Due Date Last Done Comments [...] receptor negative (HCC) documented in this encounter Care Teams Director Of Exhibit Development Relationship Specialty Start Date End Date Toby Bell MD [address] [place] [address] PCP - General Family Medicine 02/08/22 documented as of this encounter
--- OUTSIDE RECORDS SUMMARY | 2023-12-07 20:36 | External Medical Summary | Summary of Care ---
Author Name Unknown Organization [facility] Address [address] [place] [address] Phone [phone] Care Team Providers Care Canvassing Manager Name Role Phone Jovany Monteiro MD Primary Care Provider +1- [phone] Reason for Visit * Reason Onset Date Comments Medication Refill 10/21/2023 Encounter Details Date Type Department Care Team (Late st Contact Info) Description 10/21/2023 Refill [facility] [address] [place] [address] Jovany Monteiro MD [address] [place] [address] Allergies Active Allergy Reactions Criticality Noted Date Comments Guaifenesin & Derivatives 10/11/2000 Daily--hives Lisinopril Edema face/lips/tongue High 08/05/2021 documented as of this encounter (statuses as of 10/24/2023) Medications Medication Sig Dispensed Refills Start Date End Date Status OCUVITE OR TABS 1 TABLET DAILY 30 0 04/16/2002 Active Atorvastatin Calcium 40 MG Oral Tablet (Lipitor) Take 1 Tablet by mouth in the morning. 90 Tablet 3 10/24/2023 Active Losartan Potassium 50 MG Oral Tablet (Cozaar) Take 1.5 Tablets by mouth in the morning. 135 Tablet 3 10/24/2023 Active Losartan Potassium 50 MG Oral Tablet (Cozaar) Take 1.5 Tablets by mouth in the morning. 135 Tablet 3 12/14/2022 10/21/2023 Discontinued (Refill) Atorvastatin Calcium 40 MG Oral Tablet (Lipitor) Take 1 Tablet by mouth in the morning. 90 Tablet 3 12/14/2022 10/21/2023 Discontinued (Refill) documented as of this encounter (statuses as of 10/24/2023) Active Problems Problem Noted Date Diagnosed Date [...] as of this encounter (statuses as of 10/24/2023) Immunizations Name Administration Dates Next Due COVID-19 [...] encounter Miscellaneous Notes * Telephone Encounter - Laisha Rasmussen [facility] - 10/24/2023 4:45 AM EDTSigned Prescriptions: Disp Refills Atorvastatin Calcium 40 MG Oral Tablet (Li*90 Tab*3 Sig: Take 1 Tablet by mouth in the morning. Authorizing Provider: JOVANY MONTEIRO Ordering User: LAISHA RASMUSSEN Losartan Potassium 50 MG Oral Tablet (Coza*135 Ta*3 Sig: Take 1.5 Tablets by mouth in the morning. Authorizing Provider: JOVANY MONTEIRO Ordering User: Dank RASMUSSEN * Telephone Encounter - Shireen Palacios, enterprise business architect - 10/21/2023 10:43 AM EDT Did you pend patient's preferred pharmacy and medication before forwarding?yes Pharmacy: [id number] [address] [facility] Pending Prescriptions: Disp Refills Atorvastatin Calcium 40 MG Oral Tablet (L*90 Tab*3 Sig: Take 1 Tablet by mouth in the morning. Losartan Potassium 50 MG Oral Tablet (Coz*135 Ta*3 Sig: Take 1.5 Tablets by mouth in the morning. Last Visit: 10/11/2023 (in office), Visit date not found (telemedicine) Next Visit: 10/28/2023 If no future appointments scheduled, and last appointment is greater than a year ago, please schedule patient for a follow-up appointment Last date the medication was ordered: Is this request for a controlled substance?No Urine Drug Screen:No results found for this or any previous visit. Patient Phone Numbers [place] [phone] Labs: Lab Results Component Value Date/Time CREAT 0.8 10/13/2023 10:35 AM CREAT 0.8 10/22/1999 10:44 PM POTASSIUM 4.4 10/13/2023 10:35 AM POTASSIUM 4.1 10/22/1999 10:44 PM TSH 4.13 05/07/2002 08:24 AM LDLCALC 198 (H) 11/04/2022 03:09 PM LDLCALC 144 (H) 06/17/1999 10:30 AM ALT 21 11/04/2022 03:09 PM ALT 39 10/22/1999 10:44 PM HGBA1C 6.6 (H) 11/04/2022 03:09 PM documented in this encounter Plan of Treatment Upcoming Encounters Date Type Department Care Team (Latest Contact Info) Description 10/24/2023 3:00 PM EDT Office Visit Hematology/Oncolog y [facility] [address] [place] [phone] Nas Palacios MD 200 [facility] [place] [address] 10/28/2023 3:00 PM EDT Office Visit [facility] [address] [place] [phone] Favian Loomis MD [address] [place] [address] 11/02/2023 9:30 AM EDT Imaging [facility] [address] [place] [address] 11/02/2023 10:48 AM EDT Hospital Encounter OR [facility], Operating Room [facility] [address] [place] [phone] Mariah Abdul MD 132 [place] [address] 11/02/2023 10:48 AM EDT - 11/02/2023 12:55 PM EDT Surgery OR [facility], Operating Room [facility] [address] [place] [phone] Mariah Abdul MD [address] [place] [address] MASTECTOMY PARTIAL 11/02/2023 3:10 PM EDT Imaging Radiology [facility] 1st [facility] [address] [facility] [place] [address] 11/04/2023 9:15 AM EDT Scheduled Telephone General Surgery, [facility] 132 [facility] [place] [address] [facility], Nurse Gen Surg [facility] 132 [facility] [place] [address] 11/17/2023 9:30 AM EDT Office Visit General Surgery, [facility] [address] [facility] [place] [address] Mariah Abdul MD 132 [facility] [address] 02/03/2024 10:30 AM EDT Telemedicine Genetics HemOnc, [facility] [address] [place] [address] Mabel Ford, [place] [address] [place] [address] 03/16/2024 2:40 PM EDT Office Visit [facility] [address] [place] [phone] Jovany Monteiro MD [address] [place] [address] 04/10/2024 10:30 AM EST Imaging Radiology, [address] [place] [address] Scheduled Procedures Name Priority Associated Diagnoses Date/Ti [...] season) 2023 09/16/2020, 08/15/2020 HbA1c 05/06/2023 11/04/2022 Diabetic Eye Exam 12/16/2023 12/15/2022, , 12/15/2022, Additional history exists Depression Screening 10/10/2024 10/11/2023 Diabetic Foot Exam 10/10/2024 10/11/2023 GFR 10/12/2024 10/13/2023, 10/21, 02/08/2022, Additional history exists DTaP,Tdap,and Td Vaccines (3 [...] filedocumented as of this encounter Care Teams Canvassing Manager Relationship Specialty Start Date End Date Jovany Monteiro MD [address] [place] [address] PCP - General Family Medicine 02/08/22 documented as of this encounter
--- OUTSIDE RECORDS SUMMARY | 2023-12-07 20:36 | External Medical Summary | Summary of Care ---
Author Name Unknown Organization [facility] Address [address] [place] [address] Phone [phone] Care Team Providers Care Relief Worker Name Role Phone Toby Bell MD Primary Care Provider +1- [phone] Reason for Visit * Reason Onset Date Comments Appointment 10/13/2023 Encounter Details Date Type Department Care Team (Late st Contact Info) Description 10/13/2023 Telephone General Surgery, [facility] [address] [place] [address] Mariah Abdul MD [address] [place] [address] Appointment Allergies Active Allergy Reactions Criticality Noted Date Comments Guaifenesin & Derivatives 10/11/2000 Daily--hives Lisinopril Edema face/lips/tongue High 08/05/2021 documented as of this encounter (statuses as of 10/25/2023) Medications Medication Sig Dispensed Refills Start Date End Date Status OCUVITE OR TABS 1 TABLET DAILY 30 0 04/16/2002 Active Losartan Potassium 50 MG Oral Tablet [...] Telephone Encounter - Madalyn Lewis OSA - 10/25/2023 9:00 AM EDT Patient missed her oncology appt on 10/23. The soonest they have is 11/01, same day as her surgery. Isit ok to wait until after surgery for the oncology appt? Patient is asking. * Telephone Encounter - Maria L Paige OSA - 10/25/2023 8:41 AM EDT Patient calling in, she missed appt for Hem/Onc that she stated she was to have prior to surgery. They are not able to get her in before 11/02/23,please advise, thanks * Telephone Encounter - Madalyn Lewis OSA - 10/13/2023 10:41 AM EDT Patient needs scheduled for medical oncology prior to her surgery with Mariah Abdul on 11/02/23. Please call with date and time. documented in this encounter Plan of Treatment Upcoming Encounters Date Type Department Care Team (Latest Contact Info) Description 10/28/2023 3:00 PM EDT [facility] [address] [facility] [phone] September, Favian Olivas MD [address] [facility] [address] 11/02/2023 9:30 AM EDT Imaging [facility] [address] [place] [address] 11/02/2023 10:48 AM EDT Hospital Encounter OR [facility], Operating Room [facility] [address] [place] [phone] Mariah Abdul MD [address] [place] [address] 11/02/2023 10:48 AM EDT - 11/02/2023 12:55 PM EDT Surgery OR [facility], Operating Room [facility] [address] [place] [phone] Mariah Abdul MD [address] [place] [address] MASTECTOMY PARTIAL 11/02/2023 3:10 PM EDT Imaging Radiology [facility] 1st [facility] [address] [place] [address] 11/04/2023 9:15 AM EDT Scheduled Telephone General Surgery, [facility] [address] [place] [address] [facility], Nurse Gen Surg [facility] [address] [place] [address] 11/17/2023 9:30 AM EDT Office Visit General Surgery, [facility] [address] [place] [address] Mariah Abdul MD [address] [place] [address] 02/03/2024 10:30 AM EDT Telemedicine Genetics HemOnc, [facility] [address] [place] [address] Mabel [place], [place] [address] [place] [address] 03/16/2024 2:40 PM EDT Office Visit [address] [phone] Toby Bell MD [address] [place] [address] 04/10/2024 10:30 AM EST Imaging Radiology, [address] [place] [address] Scheduled Procedures Name Priority Associated Diagnoses Date/Ti [...] filedocumented as of this encounter Care Teams Relief Worker Relationship Specialty Start Date End Date Toby Bell MD [address] [facility] [place] [address] PCP - General Family Medicine 02/08/22 documented as of this encounter
--- OUTSIDE RECORDS SUMMARY | 2023-12-07 20:36 | External Medical Summary | Summary of Care ---
Author Name Unknown Organization [facility] Address [address] [place] [address] Phone [phone] Care Team Providers Care Rn Assessment Name Role Phone Toby Bell MD Primary Care Provider +1- [phone] Reason for Visit * Reason Onset Date Comments No Show 10/24/2023 Encounter Details Date Type Department Care Team (Late st Contact Info) Description 10/24/2023 Telephone Hematology/Oncology [facility] [place] [address] [place] [address] Nas Palacios MD [address] [place] [address] No Show Allergies Active Allergy Reactions Criticality [...] Description 10/28/2023 3:00 PM EDT Office Visit [facility] [address] [place] [address] Favian Loomis MD [address] [place] [address] 11/02/2023 9:30 AM EDT Imaging [facility] 2nd Floor Cardiology, [place] [address] [place] [address] 11/02/2023 10:48 AM EDT Hospital Encounter OR OSS, Operating Room [facility] [address] [place] [phone] Mariah Abdul MD [address] [place] [address] 11/02/2023 10:48 AM EDT - 11/02/2023 12:55 PM EDT Surgery OR OSS, Operating Room OSS [address] [place] [phone] Mariah Abdul MD [address] [place] [address] MASTECTOMY PARTIAL 11/02/2023 3:10 PM EDT Imaging Radiology [facility] 1st [facility] [place] 132 [facility] [place] [address] 11/04/2023 9:15 AM EDT Scheduled Telephone General Surgery, [facility] [address] [place], Nurse Gen Surg [facility] 132 [facility] [address] 11/17/2023 9:30 AM EDT Office Visit General Surgery, [facility] 132 [facility] [place] [address] Mariah Abdul MD 132 [place] [address] 02/03/2024 10:30 AM EDT Telemedicine Genetics HemOnc, [facility] [address] [place] [address] Mabel [place], [place] [address] [place] [address] 03/16/2024 2:40 PM EDT Office Visit [facility] [address] [place] [phone] Toby Bell MD [address] [place] [address] 04/10/2024 10:30 AM EST Imaging Radiology, [address] [place] [address] Scheduled Procedures Name Priority Associated Diagnoses Date/Ti [...] filedocumented as of this encounter Care Teams Rn Assessment Relationship Specialty Start Date End Date Toby Bell MD [address] [place], [place] [address] PCP - General Family Medicine 02/08/22 documented as of this encounter
--- OUTSIDE RECORDS SUMMARY | 2023-12-07 20:36 | External Medical Summary | Summary of Care ---
Author Name Unknown Organization [facility] Address [address] [place] [address] Phone [phone] Care Team Providers Care Refrigerated Cargo Clerk Name Role Phone Toby Bell MD Primary Care Provider +1- [phone] Reason for Visit * Reason Onset Date Comments Referral 10/26/2023 Encounter Details Date Type Department Care Team (Late st Contact Info) Description 10/26/2023 Telephone General Surgery, [facility] [address] [place] [address] Services, [facility] [address] [place] [address] Referral Allergies Active Allergy Reactions Criticality Noted Date [...] Encounter - Madalyn Lewis OSA - 10/26/2023 2:[address] Abdul, are you willing to place a port at the same time as her surgery? We received a referral. * Telephone Encounter - Martha Martínez LPN - 10/26/2023 1:48 PM EDT Madalyn, this patient is scheduled for breast surgery with Dr Abdul on 11/01 at [facility]. Can youcheck the possibility of placing the port during her scheduled procedure? * Telephone Encounter - Annmarie Gifford OSA - 10/26/2023 12:15 PM EDT Referral from: Dr. Palacios Consult: Gen Surg For: Mediport insertion Annmarie Gifford General Surgery and Breast Clinic [facility] documented in this encounter Plan of Treatment Upcoming Encounters Date Type Department Care Team (Latest Contact Info) Description 10/28/2023 10:00 AM EDT Nurse Only Hematology/Oncolog y [facility] [address] [place] [address] Nurse Christina Hem Onc Scenery [address] [place], [place] [address] 10/28/2023 3:00 PM EDT Office Visit [facility] [address] [facility], [place] [address] Favian Loomis MD [address] [place] [facility] [place] [address] 11/02/2023 7:15 AM EDT Cardiac Studies Cardiac Studies, [facility] [address] [place] [address] 11/02/2023 9:30 AM EDT Imaging [facility] 2nd [facility] Cardiology, [place] [address] [place] [address] 11/02/2023 11:27 AM EDT Hospital Encounter OR [facility], Operating Room [facility] [address] [place] [phone] Mariah Abdul MD [address] [place] [address] 11/02/2023 11:27 AM EDT - 11/02/2023 1:34 PM EDT Surgery OR [facility], Operating Room [facility] [address] [place] [phone] Mariah Abdul MD [address] [place] [address] MASTECTOMY PARTIAL 11/02/2023 3:10 PM EDT Imaging Radiology [facility] 1st [facility] [place] [address] [place] [address] 11/04/2023 9:15 AM EDT Scheduled Telephone General Surgery, [facility] [address] [place] [address] Nurse Heri Gen Surg [facility] [address] [place] [address] 11/17/2023 9:30 AM EDT Office Visit General Surgery, [facility] [address] [place] [address] Mariah Abdul MD [address] [place] [address] 02/03/2024 10:30 AM EDT Telemedicine Genetics HemOnc, [facility] [address] [place], [place] [address] [place], [place] [address] [place], [place] [address] 03/16/2024 2:40 PM EDT Office Visit [facility] [address] [place] [phone] Toby Bell MD [address] [place] [address] 04/10/2024 10:30 AM EST Imaging Radiology, [address] [address] Scheduled Procedures Name Priority Associated Diagnoses Date/Ti [...] filedocumented as of this encounter Care Teams Refrigerated Cargo Clerk Relationship Specialty Start Date End Date Toby Bell MD [address] [place] [address] PCP - General Family Medicine 02/08/22 documented as of this encounter
--- OUTSIDE RECORDS SUMMARY | 2023-12-07 20:36 | External Medical Summary | Summary of Care ---
Author Name Unknown Organization [facility] Address [address] [place] [address] Phone [phone] Care Team Providers Care Transition Program Manager Name Role Phone Toby Bell MD Primary Care Provider +1- [phone] Encounter Details Date Type Department Care Team (Late st Contact Info) Description 10/26/2023 Telephone [facility] General Surgery [address] [facility] [place] [address] Mariah Abdul MD [address] [place] [address] Allergies Active Allergy Reactions Criticality [...] 10:00 AM EDT Nurse Only Hematology/Oncolog y [facility] [address] [place], [place] [phone] Christina, Nurse Hem Onc Scenery [address] [place] [address] 10/28/2023 3:00 PM EDT Office Visit [facility] [address] [facility] [address] Favian Loomis MD [address] [facility] [address] 11/02/2023 7:15 AM EDT Cardiac Studies Cardiac Studies, [facility] [address] [place] [address] 11/02/2023 9:30 AM EDT Imaging [facility] 2nd Floor Cardiology, [place] [address] [place] [address] 11/02/2023 11:27 AM EDT Hospital Encounter OR [facility], Operating Room [facility] [address] [place] [phone] Mariah Abdul MD [address] [place] [address] 11/02/2023 11:27 AM EDT - 11/02/2023 1:34 PM EDT Surgery OR [facility], Operating Room [facility] [address] [place] [phone] Mariah Abdul MD [address] [place] [address] MASTECTOMY PARTIAL 11/02/2023 3:10 PM EDT Imaging Radiology [facility]st [facility] [address] [place] [address] 11/04/2023 9:15 AM EDT Scheduled Telephone General Surgery, [facility] 132 [facility] [place] [address] Her[place], Nurse Gen Surg [facility] [address] [place] [address] 11/17/2023 9:30 AM EDT Office Visit General Surgery, [facility] [address] [place] [address] Mariah Abdul MD [address] [place] [address] 02/03/2024 10:30 AM EDT Telemedicine Genetics HemOn, [address] [address] Mabel Ford, [place] [address] [place] [address] 03/16/2024 2:40 PM EDT Office Visit [facility] [address] [place] [phone] Toby Bell MD [address] [place] [address] 04/10/2024 10:30 AM EST Imaging Radiology, [address] [address] Scheduled Procedures Name Priority Associated Diagnoses Date/Ti [...] filedocumented as of this encounter Care Teams Transition Program Manager Relationship Specialty Start Date End Date Toby Bell MD [address] [place] [address] PCP - General Family Medicine 02/08/22 documented as of this encounter
--- OUTSIDE RECORDS SUMMARY | 2023-12-07 20:36 | External Medical Summary | Summary of Care ---
Author Name Unknown Organization [facility] Address [address] [place] [address] Phone [phone] Care Team Providers Care Hand Hide Stretcher Name Role Phone Toby Bell MD Primary Care Provider +1- [phone] Reason for Visit * Reason Onset Date Comments Referral 10/26/2023 Encounter Details Date Type Department Care Team (Late st Contact Info) Description 10/26/2023 Telephone General Surgery, [place] [address] [place] [address] Services, [facility] [address] [place] [address] Referral Allergies Active Allergy Reactions Criticality Noted [...] Encounter - Mariah Abdul MD - 10/26/2023 2:54 PM EDT She is going to do neoadjuvant chemo so the breast surgery will be delayed until after chemo. Having said that, I am happy to put her port in on 11/01 instead of her breast surgery. * Telephone Encounter - Madalyn Lewis OSA - 10/26/2023 2:[address] Abdul, are you willing to place a port at the same time as her surgery? We received a referral. * Telephone Encounter - Martha Martínez LPN - 10/26/2023 1:48 PM EDT Madalyn, this patient is scheduled for breast surgery with Dr Abdul on 11/01 at [facility]. Can youcheck the possibility of placing the port during her scheduled procedure? * Telephone Encounter - Annmarie Gifford OSA - 10/26/2023 12:15 PM EDT Referral from: Dr. Palacios Consult: Gen Surg For: Mediport insertion Annmarie Gifford General Surgery and Breast Clinic [facility] documented in this encounter Plan of Treatment Upcoming Encounters Date Type Department Care Team (Latest Contact Info) Description 10/28/2023 10:00 AM EDT Nurse Only Hematology/Oncolog y [place] [address] [place] [phone] Christina, Nurse Hem Onc Scenery [address] [place] [address] 10/28/2023 3:00 PM EDT Office Visit [facility] [address] [place] [phone] Favian Loomis MD [address] [place] [address] 11/02/2023 7:15 AM EDT Cardiac Studies Cardiac Studies, [facility] [address] [place] [address] 11/02/2023 9:30 AM EDT Imaging [facility] 2nd Floor Cardiology, [place] [address] [place] [address] 11/02/2023 11:27 AM EDT Hospital Encounter OR [facility], Operating Room [facility] [address] [place] [phone] Mariah Abdul MD [address] [place] [address] 11/02/2023 11:27 AM EDT - 11/02/2023 1:34 PM EDT Surgery OR [facility], Operating Room [facility]SS [address] [place] [phone] Mariah Abdul MD [address] [place] [address] MASTECTOMY PARTIAL 11/02/2023 3:10 PM EDT Imaging Radiology [facility] 1st [facility] 132 [facility] [place] [address] 11/04/2023 9:15 AM EDT Scheduled Telephone General Surgery, [facility] 132 [facility] [place] [address] [facility], Nurse Gen Surg [address] [place] [address] 11/17/2023 9:30 AM EDT Office Visit General Surgery, [facility] 132 [facility] [place] [address] Mariah Abdul MD 132 [facility] [place] [address] 02/03/2024 10:30 AM EDT Telemedicine Genetics HemOnc, [facility] [address] [place], [place] [address] [place], [place] [address] [place] [address] 03/16/2024 2:40 PM EDT Office Visit [facility] [address] [place] [address] Toby Bell MD [address] [place] [address] 04/10/2024 10:30 AM EST Imaging Radiology, [address] [place], [place] [address] Scheduled Procedures Name Priority Associated Diagnoses Date/Ti [...] filedocumented as of this encounter Care Teams Hand Hide Stretcher Relationship Specialty Start Date End Date Toby Bell MD [address] [place] [address] PCP - General Family Medicine 02/08/22 documented as of this encounter
--- OUTSIDE RECORDS SUMMARY | 2023-12-07 20:36 | External Medical Summary | Summary of Care ---
Author Name Unknown Organization [facility] Address [address] [place] [address] Phone [phone] Care Team Providers Care Process Treater Name Role Phone Toby Bell MD Primary Care Provider +1- [phone] Reason for Visit * Reason Onset Date Comments No Show 10/24/2023 Encounter Details Date Type Department Care Team (Late st Contact Info) Description 10/24/2023 Telephone Hematology/Oncology [facility] [place] [address] [place] [address] Nas aPlacios MD [address] [place] [address] No Show Allergies Active Allergy Reactions Criticality [...] 10:30 AM EDT Office Visit Hematology/Oncolog y [facility] 200 [facility] [place] [address] Nas Palacios MD 200 [facility] [place] [address] 10/28/2023 3:00 PM EDT Office Visit [facility] [address] [facility] [phone] Favian Loomis MD [address] [facility] [address] 11/02/2023 9:30 AM EDT Imaging [facility] 2nd Floor Cardiology, [place] 132 [facility] [place] [address] 11/02/2023 10:48 AM EDT Hospital Encounter [facility], Operating Room OSS [address] [place] [address] aMriah Abdul MD [address] [place] [address] 11/02/2023 10:48 AM EDT - 11/02/2023 12:55 PM EDT Surgery OR [facility], Operating Room OSS [address] [place] [address] Mariah Adbul MD [address] [place] [address] MASTECTOMY PARTIAL 11/02/2023 3:10 PM EDT Imaging Radiology [address] [place] [address] 11/04/2023 9:15 AM EDT Scheduled Telephone General Surgery, [facility] 132 [facility] [place] [address] [facility], Nurse Gen Surg [facility] [address] [place] [address] 11/17/2023 9:30 AM EDT Office Visit General Surgery, [facility] [address] [place] [address] Mariah Abdul MD [address] [place] [address] 02/03/2024 10:30 AM EDT Telemedicine Genetics HemOnc, [facility] [address] [place] [address] Mabel Ford, MS [address] [place] [address] 03/16/2024 2:40 PM EDT Office Visit [address] [phone] Toby Bell MD [address] [facility] [place] [id number] 04/10/2024 10:30 AM EST Imaging Radiology[address] [place] [address] Scheduled Procedures Name Priority Associated Diagnoses Date/Ti [...] filedocumented as of this encounter Care Teams Process Treater Relationship Specialty Start Date End Date Toby Bell MD [address] [place] [address] PCP - General Family Medicine 02/08/22 documented as of this encounter
--- OUTSIDE RECORDS SUMMARY | 2023-12-07 20:36 | External Medical Summary | Summary of Care ---
Author Name Unknown Organization [facility] Address [address] [place] [address] Phone [phone] Care Team Providers Care Residential Finish Carpenter Name Role Phone Toby Bell MD Primary Care Provider +1- [phone] Reason for Visit * Reason Onset Date Comments Appointment 10/24/2023 Encounter Details Date Type Department Care Team (Late st Contact Info) Description 10/24/2023 Telephone [facility] [address] [place] [address] Toby Bell MD [address] [place] [address] Appointment Allergies Active Allergy Reactions [...] EDT Nurse Only Hematology/Oncolog y [facility] [address] [place] [phone] Christina, Nurse Hem Onc [place] [address] [place] [address] 10/28/2023 3:00 PM EDT Office Visit [facility] [address] [place] [address] Favian Loomis MD [address] [place] [address] 11/02/2023 7:15 AM EDT Cardiac Studies Cardiac Studies, [facility] [address] [place] [address] 11/02/2023 9:30 AM EDT Imaging [facility] 2nd Floor Cardiology, [place] 132 [place] [address] 11/02/2023 11:27 AM EDT Hospital Encounter OR [facility], Operating Room [facility] [address] [place] [phone] Mariah Abdul MD 132 [place] [address] 11/02/2023 11:27 AM EDT - 11/02/2023 1:34 PM EDT Surgery OR [facility], Operating Room [facility] [address] [place] [address] Mariah Abdul MD [address] [place] [address] MASTECTOMY PARTIAL 11/02/2023 3:10 PM EDT Imaging Radiology [facility] 1st [facility] 132 [facility] [place] [address] 11/04/2023 9:15 AM EDT Scheduled Telephone General Surgery, [facility] 132 [facility] [place] [address] [facility], Nurse Gen Surg [facility] 132 [facility] [place] [address] 11/17/2023 9:30 AM EDT Office Visit General Surgery, [facility] 132 [facility] [place] [address] Mariah Abdul MD 132 [facility] [place] [address] 02/03/2024 10:30 AM EDT Telemedicine Genetics HemOnc, [facility] [address] [place] [address] Mabel Ford, MS [address] [place] [address] 03/16/2024 2:40 PM EDT Office Visit [facility] [address] [place] [address] Toby Bell MD [address] [place] [address] 04/10/2024 10:30 AM EST Imaging Radiology, [address] [place] [address] Scheduled Procedures Name Priority Associated Diagnoses Date/Ti [...] filedocumented as of this encounter Care Teams Residential Finish Carpenter Relationship Specialty Start Date End Date Toby Bell MD [address] [place] [address] PCP - General Family Medicine 02/08/22 documented as of this encounter
--- OUTSIDE RECORDS SUMMARY | 2023-12-07 20:36 | External Medical Summary | Summary of Care ---
Author Name Unknown Organization [facility] Address [address] [place] [address] Phone [phone] Care Team Providers Care Driver Retraining Instructor Name Role Phone Toby Bell MD Primary Care Provider +1- [phone] Reason for Visit * Reason Onset Date Comments No Show 10/24/2023 Encounter Details Date Type Department Care Team (Late st Contact Info) Description 10/24/2023 Telephone Hematology/Oncology [facility] [place] [address] [place] [address] Nas Palacios MD [address] [place] [address] No Show Allergies Active Allergy Reactions Criticality [...] encounter Miscellaneous Notes * Telephone Encounter - Maria L Borrego, MED ASSIST - 10/24/2023 3:39 PM EDT Please contact patient to reschedule new patient appt with . thank you. documented in this encounter Plan of Treatment Upcoming Encounters Date Type Department Care Team (Latest Contact Info) Description 10/28/2023 3:00 PM EDT Office Visit [facility] [address] [facility] [address] Favian Loomis MD [address] [facility] [address] 11/02/2023 9:30 AM EDT Imaging [facility] [address] [place] [address] 11/02/2023 10:48 AM EDT Hospital Encounter OR [facility], Operating Room [facility] [address] [place] [phone] Mariah Abdul MD [address] [place] [address] 11/02/2023 10:48 AM EDT - 11/02/2023 12:55 PM EDT Surgery OR [facility], Operating Room OSS [address] [place] [phone] Mariah Abdul MD [address] [place] [address] MASTECTOMY PARTIAL 11/02/2023 3:10 PM EDT Imaging Radiology [facility] 1st [facility] [address] [place] [address] 11/04/2023 9:15 AM EDT Scheduled Telephone General Surgery, [facility] [address] [place] [address] [facility], Nurse Gen Surg [facility] [address] [place] [address] 11/17/2023 9:30 AM EDT Office Visit General Surgery, [facility] [address] [facility] [address] Mariah Abdul MD [address] [facility] [place] [address] 02/03/2024 10:30 AM EDT Telemedicine Genetics HemOnc, [facility] [address] [place] [address] Mabel Ford, MS [address] [place], [place] [address] 03/16/2024 2:40 PM EDT Office Visit [facility] [address] [place] [address] Toby Bell MD [address] [place], [place] [address] 04/10/2024 10:30 AM EST Imaging Radiology, [address] [address] Scheduled Procedures Name Priority Associated Diagnoses Date/Ti [...] Additional history exists Diabetic Eye Exam 10/19/2024 10/20/2023 (Do ne elsewhere), 12/15/2022, 12/15/2022, Additional history exists DTaP,Tdap,and Td Vaccines [...] filedocumented as of this encounter Care Teams Driver Retraining Instructor Relationship Specialty Start Date End Date Toby Bell MD [address] [place] [address] PCP - General Family Medicine 02/08/22 documented as of this encounter
--- OUTSIDE RECORDS SUMMARY | 2023-12-07 20:36 | External Medical Summary | Summary of Care ---
Author Name Unknown Organization [facility] Address [address] [place] [facility] [place] [address] Phone [phone] Care Team Providers Care Quiller Tender Name Role Phone Toby Bell MD Primary Care Provider +1- [phone] Reason for Visit * Reason Onset Date Comments Appointment 10/26/2023 Encounter Details Date Type Department Care Team (Late st Contact Info) Description 10/26/2023 Telephone Hematology/Oncology [facility] [place] [address] [place] [phone] Nas Palacios MD [address] [place] [address] Appointment Allergies Active Allergy Reactions Criticality Noted [...] - 10/26/2023 11:37 AM EDT Request Summary [[id number]] Procedure: SURGERY REFERRAL OP Status: Needs Scheduling ([id number] Pending) Requested appt date: Authorizing: Nas Palacios MD in HEM/ONC [facility] Referral: [id number] (Authorized) Priority: Within 10 days (routine) Diagnosis: [...] 10:00 AM EDT Nurse Only Hematology/Oncolog y [facility] [address] [place] [phone] Christina Nurse Hem Onc [facility] [address] [place] [address] 10/28/2023 3:00 PM EDT Office Visit [facility] [address] [facility], [place] [phone] Favian Loomis MD [address] [facility] [address] 11/02/2023 7:15 AM EDT Cardiac Studies Cardiac Studies, [facility] [address] [place] [address] 11/02/2023 9:30 AM EDT Imaging [facility] [address] [place] [address] 11/02/2023 11:27 AM EDT Hospital Encounter OR [facility], Operating Room [facility]SS [address] [place] [phone] Mariah Abdul MD [address] [place] [address] 11/02/2023 11:27 AM EDT - 11/02/2023 1:34 PM EDT Surgery OR [facility], Operating Room [facility] [address] [place] [phone] Mariah Abdul MD [address] [place] [address] MASTECTOMY PARTIAL 11/02/2023 3:10 PM EDT Imaging Radiology [facility] [address] [facility] [address] [place] [address] 11/04/2023 9:15 AM EDT Scheduled Telephone General Surgery, [facility] [address] [place] [address] [place], Nurse Gen Surg [facility] [address] [place] [address] 11/17/2023 9:30 AM EDT Office Visit General Surgery, [facility] [address] [place] [address] Mariah Abdul MD [address] [facility] [place] [address] 02/03/2024 10:30 AM EDT Telemedicine Genetics HemOnc, [facility] [address] [place], [place] [address] Mabel Ford, MS [address] [place] [address] 03/16/2024 2:40 PM EDT Office Visit Family [facility] [address] [place] [address] Toby Bell MD [address] [place], [place] [address] 04/10/2024 10:30 AM EST Imaging Radiology, [address] [address] Scheduled Procedures Name Priority Associated Diagnoses Date/Ti [...] filedocumented as of this encounter Care Teams Quiller Tender Relationship Specialty Start Date End Date Toby Bell MD [address] [place] [address] PCP - General Family Medicine 02/08/22 documented as of this encounter
--- OUTSIDE RECORDS SUMMARY | 2023-12-07 20:36 | External Medical Summary | Summary of Care ---
Author Name Unknown Organization [facility] Address [address] [place] [address] Phone [phone] Care Team Providers Care Design Specialist Name Role Phone Toby Bell MD Primary Care Provider +1- [phone] Reason for Visit * Reason Onset Date Comments Pre Op Discussion 10/25/2023 Encounter Details Date Type Department Care Team (Late st Contact Info) Description 10/25/2023 Telephone OR [facility], Operating Room [facility] [address] [place] [address] Mariah Abdul MD [address] [place] [address] Pre Op Discussion Allergies Active Allergy Reactions Criticality Noted Date [...] Description 10/28/2023 3:00 PM EDT Office Visit [place] [address] [place] [facility] [address] Favian Loomis MD [address] [facility] [address] 11/02/2023 9:30 AM EDT Imaging [facility]nd [facility] [address] [place] [address] 11/02/2023 10:48 AM EDT Hospital Encounter OR [facility], Operating Room [facility] [address] [place] [phone] Mariah Abdul MD [address] [place] [address] 11/02/2023 10:48 AM EDT - 11/02/2023 12:55 PM EDT Surgery OR [facility], Operating Room [facility] [address] [place] [phone] Mariah Abdul MD [address] [place] [address] MASTECTOMY PARTIAL 11/02/2023 3:10 PM EDT Imaging Radiology [address], [place] [address] [place] [address] 11/04/2023 9:15 AM EDT Scheduled Telephone General Surgery, [facility] [address] [place] [address] [facility], Nurse Gen Surg [facility] [address] [place] [address] 11/17/2023 9:30 AM EDT Office Visit General Surgery, [facility] [address] [place] [address] Mariah Abdul MD [address] [place] [address] 02/03/2024 10:30 AM EDT Telemedicine Genetics HemOnc, [facility] [address] [place] [address] Maebl Ford, MS [address] [place] [address] 03/16/2024 2:40 PM EDT Office Visit Family [facility] [address] [place] [address] Toby Bell MD [address] [place] [address] 04/10/2024 10:30 AM EST Imaging Radiology, [address] [address] Scheduled Procedures Name Priority Associated Diagnoses Date/Ti [...] filedocumented as of this encounter Care Teams Design Specialist Relationship Specialty Start Date End Date Toby Bell MD [address] [place] [address] PCP - General Family Medicine 02/08/22 documented as of this encounter
--- OUTSIDE RECORDS SUMMARY | 2023-12-07 20:36 | External Medical Summary | Summary of Care ---
Author Name Unknown Organization [facility] Address [address] [place] [address] Phone [phone] Care Team Providers Care Ice Guard Tester Name Role Phone Toby Bell MD Primary Care Provider +1- [phone] Reason for Visit * Reason Onset Date Comments Appointment 10/13/2023 Encounter Details Date Type Department Care Team (Late st Contact Info) Description 10/13/2023 Telephone General Surgery, [facility] [address] [place] [address] Mariah Abdul MD [address] [place] [address] Appointment Allergies Active Allergy Reactions Criticality Noted [...] Telephone Encounter - Mariah Abdul MD - 10/25/2023 12:51 PM EDT Thank you! Madalyn, she should see onc tomorrow (they are squeezing her in). I tried to call her but no answer. * Telephone Encounter - Mariah Abdul MD - 10/25/2023 10:18 AM EDT Let me ask med onc.... Drs. Blank and Suzanne, Would you want to see her prior to surgery? 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 83 yrs old but relatively healthy. Currently scheduled for surgery 11/01 and she missed her onc appt with you all earlier. * Telephone Encounter - Madalyn Lewis OSA [...] Description 10/28/2023 3:00 PM EDT Office Visit [facility] [address] [facility] [address] Favian Loomis MD [address] [facility] [address] 11/02/2023 9:30 AM EDT Imaging [facility] [address] [place] [address] 11/02/2023 10:48 AM EDT Hospital Encounter [facility], Operating Room OSS [address] [place] [phone] Mariah Abdul MD [address] [place] [address] 11/02/2023 10:48 AM EDT - 11/02/2023 12:55 PM EDT Surgery OR [facility], Operating Room OSS [address] [place] [phone] Mariah Abdul MD [address] [place] [address] MASTECTOMY PARTIAL 11/02/2023 3:10 PM EDT Imaging Radiology [facility]st [facility] [address] [place] [address] 11/04/2023 9:15 AM EDT Scheduled Telephone General Surgery, [facility] [address] [place] [address] [place], Nurse Gen Surg [facility] [address] [place] [address] 11/17/2023 9:30 AM EDT Office Visit General Surgery, [facility] [place] [address] Mariah Abdul MD [address] [place] [address] 02/03/2024 10:30 AM EDT Telemedicine Genetics HemOnc, [facility] [address] [place] [address] Mabel Ford, [place] [address] [place] [address] 03/16/2024 2:40 PM EDT Office Visit [facility] [address] [place] [address] Toby Bell MD [address] [place] [address] 04/10/2024 10:30 AM EST Imaging Radiology, [address] [address] Scheduled Procedures Name Priority Associated Diagnoses Date/Ti [...] filedocumented as of this encounter Care Teams Ice Guard Tester Relationship Specialty Start Date End Date Toby Bell MD [address] [place] [address] PCP - General Family Medicine 02/08/22 documented as of this encounter
--- OUTSIDE RECORDS SUMMARY | 2023-12-07 20:36 | External Medical Summary | Summary of Care ---
Author Name Unknown Organization [facility] Address [address] [place] [address] Phone [phone] Care Team Providers Care Supervisor Fitting Name Role Phone Toby Bell MD Primary Care Provider +1- [phone] Reason for Visit * Reason Onset Date Comments Appointment 10/13/2023 Encounter Details Date Type Department Care Team (Late st Contact Info) Description 10/13/2023 Telephone General Surgery, [facility] [address] [place] [address] Mariah Abdul MD [address] [place] [address] Appointment Allergies Active Allergy Reactions Criticality Noted [...] Notes * Telephone Encounter - Maria L Paige [...] Description 10/28/2023 3:00 PM EDT Office Visit [facility] [address] [place] [address] SeptemberFavian MD [address] [place] [address] 11/02/2023 9:30 AM EDT Imaging [facility] [address] [place] [address] 11/02/2023 10:48 AM EDT Hospital Encounter OR [facility], Operating Room OSS [address] [place] [phone] Mariah Abdul MD 132 [place] [address] 11/02/2023 10:48 AM EDT - 11/02/2023 12:55 PM EDT Surgery OR [facility], Operating Room OSS [address] [place] [phone] Mariah Abdul MD [address] [facility] [place] [address] MASTECTOMY PARTIAL 11/02/2023 3:10 PM EDT Imaging Radiology [facility] 1st [facility] 132 [facility] [place] [address] 11/04/2023 9:15 AM EDT Scheduled Telephone General Surgery, [facility] 132 [facility] [place] [address] [facility], Nurse Gen Surg [facility] 132 [facility] [place] [address] 11/17/2023 9:30 AM EDT Office Visit General Surgery, [facility] 132 [facility] [place] [address] Mariah Abdul MD 132 [facility] [place] [address] 02/03/2024 10:30 AM EDT Telemedicine Genetics HemOnc, [facility] [address] [place] [address] Mabel Ford, [place] [address] [place] [address] 03/16/2024 2:40 PM EDT Office Visit [facility] [address] [place] [address] Toby Bell MD [address] [place] [address] 04/10/2024 10:30 AM EST Imaging Radiology, [address] [place], [place] [address] Scheduled Procedures Name Priority Associated Diagnoses Date/Ti [...] filedocumented as of this encounter Care Teams Supervisor Fitting Relationship Specialty Start Date End Date Toby Bell MD [address] [place] [address] PCP - General Family Medicine 02/08/22 documented as of this encounter
--- OUTSIDE RECORDS SUMMARY | 2023-12-07 20:36 | External Medical Summary | Summary of Care ---
Author Name Unknown Organization [facility] Address [address] [place] [address] Phone [phone] Care Team Providers Care Finisher Tailor Apprentice Name Role Phone Toby Bell MD Primary Care Provider +1- [phone] Encounter Details Date Type Department Care Team (Late st Contact Info) Description 10/25/2023 Orders Only [facility] [address] [place] [address] Toby Bell MD [address] [place] [address] Allergies Active Allergy Reactions Criticality [...] Description 10/28/2023 3:00 PM EDT Office Visit [address] [phone] MayFavian MD [address] [place] [address] 11/02/2023 9:30 AM EDT Imaging [facility] 2nd Floor Cardiology, [place] [address] [place] [address] 11/02/2023 10:48 AM EDT Hospital Encounter OR [facility], Operating Room [facility] [address] [place] [phone] Mariah Abdul MD [address] [place] [address] 11/02/2023 10:48 AM EDT - 11/02/2023 12:55 PM EDT Surgery OR [facility], Operating Room OSS [address] [place] [phone] Mariah Abdul MD [address] [place] [address] MASTECTOMY PARTIAL 11/02/2023 3:10 PM EDT Imaging Radiology [facility] 1st [facility] [place] [address] [place] [address] 11/04/2023 9:15 AM EDT Scheduled Telephone General Surgery, [facility] 132 [facility] [place] [address] [place], Nurse Gen Surg [facility] [place] [address] 11/17/2023 9:30 AM EDT Office Visit General Surgery, [facility] [address] [place] [address] Mariah Abdul MD [address] [place] [address] 02/03/2024 10:30 AM EDT Telemedicine Genetics HemOnc, [facility] [address] [place] [address] Mabel Ford, [place] [address] [place] [address] 03/16/2024 2:40 PM EDT Office Visit [facility] [address] [place] [address] Toby Bell MD [address] [place], [place] [address] 04/10/2024 10:[address] [facility] Imaging Radiology, [address] [place] [address] Scheduled Procedures Name Priority Associated Diagnoses Date/Ti [...] Procedure Name Priority Date/Time Associated Diagnosis Comments DIABETIC EYE EXAM Routine 10/20/2023 documented in this encounter Results * DIABETIC EYE EXAM (10/20/2023) 10/20/2023 History Per Patient OTHER OUTSIDE LAB (SEE SCANNED REPORT) documented in this encounter Care Teams Finisher Tailor Apprentice Relationship Specialty Start Date End Date Toby Bell MD [address] [place] [address] PCP - General Family Medicine 02/08/22 documented as of this encounter
--- OUTSIDE RECORDS SUMMARY | 2023-12-07 20:36 | External Medical Summary | Summary of Care ---
Author Name Unknown Organization [facility] Address [address] [place] [address] Phone [phone] Care Team Providers Care Medicaid Business Analyst Name Role Phone Toby Bell MD Primary Care Provider +1- [phone] Reason for Visit * Reason Onset Date Comments Referral 10/26/2023 Encounter Details Date Type Department Care Team (Late st Contact Info) Description 10/26/2023 Telephone General Surgery, [place] [address] [place] [address] Services, [facility] [address] [place] [address] Referral Allergies Active Allergy Reactions Criticality Noted [...] surgery with Dr Abdul on 11/01 at [facility]. Can youcheck the possibility of placing the port during her scheduled procedure? * Telephone Encounter - Annmarie Gifford OSA - 10/26/2023 12:15 PM EDT Referral from: Dr. Palacios Consult: Gen Surg For: Mediport insertion Annmarie Gifford [facility] documented in this encounter Plan of Treatment Upcoming Encounters Date Type Department Care Team (Latest Contact Info) Description 10/28/2023 10:00 AM EDT Nurse Only Hematology/Oncolog y [facility] [address] [place] [address] Nurse Christina Hem Onc [facility] [address] [place], [place] [address] 10/28/2023 3:00 PM EDT Office Visit [facility] [address] [facility], [place] [address] Favian Loomis MD [address] [place] [facility] [address] 11/02/2023 7:15 AM EDT Cardiac Studies Cardiac Studies, [facility] [address] [place] [address] 11/02/2023 9:30 AM EDT Imaging [facility] [address] [facility] Cardiology, [place] [address] [place] [address] 11/02/2023 11:27 AM EDT Hospital Encounter [facility], Operating Room [facility] [address] [place] [phone] Mariah Abdul MD [address] [place] [address] 11/02/2023 11:27 AM EDT - 11/02/2023 1:34 PM EDT Surgery OR [facility], Operating Room [facility] [address] [place] [phone] Mariah Abdul MD [address] [place] [address] MASTECTOMY PARTIAL 11/02/2023 3:10 PM EDT Imaging Radiology [facility] [address] [facility] [place] [address] [place] [address] 11/04/2023 9:15 AM EDT Scheduled Telephone General Surgery, [facility] [address] [place] [address] Nurse Heri Gen Surg [facility] [address] [place] [address] 11/17/2023 9:30 AM EDT Office Visit General Surgery, [facility] [address] [place] [address] Mariah Abdul MD [address] [place] [address] 02/03/2024 10:30 AM EDT Telemedicine Genetics HemOnc, [facility] [address] [place], [place] [phone] [place], [place] [address] [place], [place] [phone] 03/16/2024 2:40 PM EDT Office Visit [facility] [address] [place] [address] Toby Bell MD [address] [place] [address] 04/10/2024 10:30 AM EST Imaging Radiology, [address] [address] Scheduled Procedures Name Priority Associated Diagnoses Date/Ti [...] filedocumented as of this encounter Care Teams Medicaid Business Analyst Relationship Specialty Start Date End Date Toby Bell MD [address] [place] [address] PCP - General Family Medicine 02/08/22 documented as of this encounter
--- OUTSIDE RECORDS SUMMARY | 2023-12-07 20:36 | External Medical Summary | Summary of Care ---
Author Name Unknown Organization [facility] Address [address] [place] [address] Phone [phone] Care Team Providers Care Conference Planner Name Role Phone Toby Bell MD Primary Care Provider +1- [phone] Reason for Visit * Reason Onset Date Comments Appointment 10/13/2023 Encounter Details Date Type Department Care Team (Late st Contact Info) Description 10/13/2023 Telephone General Surgery, [facility] [address] [place] [address] Mariah Abdul MD [address] [place] [address] Appointment Allergies Active Allergy Reactions Criticality Noted [...] 10/28/2023 3:00 PM EDT [facility] [address] [facility] [address] Favian Loomis MD [address] [facility] [address] 11/02/2023 9:30 AM EDT Imaging [facility] [address] [place] [address] 11/02/2023 10:48 AM EDT Hospital Encounter OR [facility], Operating Room OSS [address] [place] [phone] Mariah Abdul MD [address] [place] [address] 11/02/2023 10:48 AM EDT - 11/02/2023 12:55 PM EDT Surgery OR [facility], Operating Room O[facility] [address] [place] [phone] Mariah Abdul MD [address] [place] [address] MASTECTOMY PARTIAL 11/02/2023 3:10 PM EDT Imaging Radiology [facility] 1st [facility] [place] [address] [place] [address] 11/04/2023 9:15 AM EDT Scheduled Telephone General Surgery, [facility] [address] [place] [address] Heri, Nurse Gen Surg [facility] [address] [place] [address] 11/17/2023 9:30 AM EDT Office Visit General Surgery, [facility] [place] [address] Mariah Abdul MD [address] [place] [address] 02/03/2024 10:30 AM EDT Telemedicine Genetics HemOnc, [facility] [address] [place] [address] [place], [place] [address] [place] [address] 03/16/2024 2:40 PM EDT Office Visit [facility] [address] [place] [address] Toby Bell MD [address] [place] [address] 04/10/2024 10:30 AM EST Imaging Radiology, [address] [address] Scheduled Procedures Name Priority Associated Diagnoses Date/Ti [...] filedocumented as of this encounter Care Teams Conference Planner Relationship Specialty Start Date End Date Toby Bell MD [address] [place] [address] PCP - General Family Medicine 02/08/22 documented as of this encounter
--- OUTSIDE RECORDS SUMMARY | 2023-12-07 20:36 | External Medical Summary | Summary of Care ---
Author Name Unknown Organization [facility] Address [address] [place] [address] Phone [phone] Care Team Providers Care Oil Transport Driver Name Role Phone Toby Bell MD Primary Care Provider +1- [phone] Reason for Visit * Reason Onset Date Comments Appointment 10/13/2023 Encounter Details Date Type Department Care Team (Late st Contact Info) Description 10/13/2023 Telephone General Surgery, [facility] [address] [place] [address] Mariah Abdul MD [address] [place] [address] Appointment Allergies Active Allergy Reactions Criticality Noted [...] Description 10/28/2023 3:00 PM EDT Office Visit [facility] [address] [facility] [address] SeptemberFavian MD [address] [facility] [address] 11/02/2023 9:30 AM EDT Imaging [facility] 2nd [facility] [address] [place] [address] 11/02/2023 10:48 AM EDT Hospital Encounter [facility], Operating Room [facility] [address] [place] [phone] Mariah Abdul MD [address] [place] [address] 11/02/2023 10:48 AM EDT - 11/02/2023 12:55 PM EDT Surgery OR [facility], Operating Room [facility] [address] [place] [phone] Mariah Abdul MD [address] [place] [address] MASTECTOMY PARTIAL 11/02/2023 3:10 PM EDT Imaging Radiology [address], [employer] [address] [place] [address] 11/04/2023 9:15 AM EDT Scheduled Telephone General Surgery, [facility] [address] [place] [address] [facility], Nurse Gen Surg [facility] [address] [place] [address] 11/17/2023 9:30 AM EDT Office Visit General Surgery, [facility] [address] [place] [address] Mariah Abdul MD [address] [place] [address] 02/03/2024 10:30 AM EDT Telemedicine Genetics HemOnc, [facility] [address] [place] [address] [place], [place] [address] [place] [address] 03/16/2024 2:40 PM EDT Office Visit Family [facility] [address] [place] [address] Toby Bell MD [address] [place] [address] 04/10/2024 10:30 AM EST Imaging Radiology, [address] [address] Scheduled Procedures Name Priority Associated Diagnoses Date/Ti [...] filedocumented as of this encounter Care Teams Oil Transport Driver Relationship Specialty Start Date End Date Toby Bell MD [address] [place] [address] PCP - General Family Medicine 02/08/22 documented as of this encounter
--- OUTSIDE RECORDS SUMMARY | 2023-12-07 20:37 | External Medical Summary | Summary of Care ---
Author Name Unknown Organization [facility] Address [address] [place] [address] Phone [phone] Care Team Providers Care Injury Prevention Coordinator Name Role Phone Toby Bell MD Primary Care Provider +1- [phone] Reason for Visit * Reason Onset Date Comments Order Request 09/19/2023 Breast BX Encounter Details Date Type Department Care Team (Late st Contact Info) Description 09/19/2023 Telephone [facility] [address] [place] [address] Toby Bell MD [address] [place] [address] Order Request (Breast BX) Allergies Active Allergy Reactions Criticality Noted Date Comments Guaifenesin & Derivatives 10/11/2000 Daily--hives Lisinopril Edema face/lips/tongue High 08/05/2021 documented as of this encounter (statuses as of 09/23/2023) Medications Medication Sig Dispensed Refills Start Date End Date Status OCUVITE OR TABS 1 TABLET DAILY 30 0 04/16/2002 Active KNEE BRACE MISCIndications:Pa in in joint involving lower leg open patella knee support. Dx: bilateral knee pain and prepatellar bursitis one pair 0 08/31/2002 Active Losartan Potassium 50 MG Oral Tablet (Cozaar) Take 1.5 Tablets by mouth in the morning. 135 Tablet 3 12/14/2022 Active Atorvastatin Calcium 40 MG Oral Tablet (Lipitor) Take 1 Tablet by mouth in the morning. 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 02/08/2022 Gastro-esophageal reflux disease without esophag itis 02/08/2022 Dyslipidemia 02/08/2022 HTN, goal below 140/90 02/08/2022 Varicose vein of leg 01/08/2003 Macular degeneration 08/31/2002 CARDIAC MURMURS NEC documented as of this encounter (statuses as of 09/23/2023) Immunizations Name Administration Dates Next Due COVID-19 mRNA, LNP-s, No Pre serve, 2-Dose Series (Moderna) 09/16/2020 Influenza, Whole Virus 05/20/2000,03/09/1999 Pneumococcal Conjugate Vacc, 13 Valent (Prevnar) 03/15/2016 Pneumococcal Polysaccharide PPV23 (Pneumovax) Seasonal Influenza, Quadrivalent Hd (Fluzone Hd) 03/04/2023,02/08/2022 Seasonal Influenza, Split, IIV3, With Preserve, Inj 04/16/2002 TDAP (age 11 and older)(Adacel) 07/10/2016,08/12 documented as of this encounter Social History Tobacco Use Types Packs/Day Years Used Date Smoking Tobacco: Never Smokeless Tobacco: Never Alcohol Use Standard Drinks/Week Comments No 0 (1 standard drink = 0.6 oz pur e alcohol) Sex and Gender Information Value Date Recorded Sex Assigned at Not on file Gender Identity Not on file Sexual Orientation Not on file Job Start Date Occupation Industry Not on file Not on file Not on file documented as of this encounter Miscellaneous Notes * Telephone Encounter - Phyllis Colin OSA - 09/23/2023 8:31 AM EDT Requested for this to be placed on providers schedule via overbook group. 09/23/2023 * Telephone Encounter - Toby Bell MD - 09/21/2023 2:[address] in appt on 10/11/23 at 1 PM * Telephone Encounter - Phyllis Colin OSA - 09/20/2023 4:43 PM EDT No available appointments 1 week after biopsy. Please advise. Thank you. * Telephone Encounter - Toby Bell MD - 09/20/2023 12:47 PM EDT Ordered - please assist Also, she should have an appointment scheduled for 1 week after the biopsy for review of test results. * Telephone Encounter - Rere Quintana LPN - 09/19/2023 11:28 AM EDT Please advise as below. Thank you. * Telephone Encounter - Prema Rodriguez OSA - 09/19/2023 10:15 AM EDT Per 09/15 diagnostic breast ultrasound recommendation, patient is scheduled 10/02 for a right ultrasound guided core biopsy. Order pended. Please review and sign if acceptable. Recommendation US guided breast core biopsy is recommended for the left breast. Resume annual screening mammography is recommended for the right breast. Thank you documented in this encounter Plan of Treatment Upcoming Encounters Date Type Department Care Team (Late st Contact Info) Description 10/03/2023 10:00 AM EDT Imaging Radiology [address] [place] [address] 10/03/2023 3:10 PM EDT Imaging Radiology [facility] 1st [facility] [address] [facility] [address] [place] [address] 03/16/2024 2:40 PM EDT Office Visit [facility] [address] [facility] [place] [phone] Toby Bell MD [address] [facility] [phone] Scheduled Orders Name Type Priority Associated Diagnoses Orde r Schedule US GUIDED BREAST BIOPSY LEFT Medical Imaging Routine Abnormal ultrasound of breast Expected: 09/20/2023, Expires: 10/18/2024 Health Maintenance Due Date Last Done Comments DXA Scan 1939 Depression Screening 1951 Albumin/Creatinine Ratio 09/16/1957 Diabetic Foot Exam 09/16/1957 Zoster Vaccines (1 of 2) 09/16/1989 COVID-19 Vaccine (3 - 2022- season) 2023 09/16/2020, 08/15/2020 HbA1c 05/06/2023 11/04/2022 GFR 11/05/2023 11/04/2022, 01/21, 10/22/1999, Additional history exists Diabetic Eye Exam 12/16/2023 12/15/2022, , 12/15/2022, Additional history exists DTaP,Tdap,and Td Vaccines (3 - Td or Tdap) 07/10/2026 07/10/2016, 07/10/2016, 08/12/2008 Pneumococcal Vaccine: 65+ Years Completed 03/15/2016, 09/27/2006 Influenza Vaccine (FLU shot) Completed , 02/08/2022, 02/14/2020, Additional history exists GARDASIL-HPV IMMUNIZATION SERIES Aged Out No longer eligible based on patient's age to complete this topic Hepatitis B Aged Out No longer eligi ble based on patient's age to complete this topic MENINGOCOCCAL (MENACTRA/MENVEO) Aged Out No longer eligible based on patient's age to complete this topic documented as of this encounter Medical Devices Not on filedocumented as of this encounter Visit Diagnoses Diagnosis Abnormal ultrasound of breast- Primary Other (abnormal) findings on radiological examination of breast documented in this encounter Care Teams Injury Prevention Coordinator Relationship Specialty Start Date End Date Toby Bell MD [address] [facility] [place] [address] PCP - General Family Medicine 02/08/22 documented as of this encounter
--- OUTSIDE RECORDS SUMMARY | 2023-12-07 20:37 | External Medical Summary | Summary of Care ---
Author Name Unknown Organization [facility] Address [address] [place] [address] Phone [phone] Care Team Providers Care [employer] Humanities Teacher Name Role Phone Toby Bell MD Primary Care Provider +1- [phone] Reason for Visit * Reason Onset Date Comments Order Request 09/19/2023 Breast BX Encounter Details Date Type Department Care Team (Late st Contact Info) Description 09/19/2023 Telephone [facility] [address] [place] [address] Toby Bell MD [address] [place] [address] Order Request (Breast BX) Allergies Active Allergy Reactions Criticality Noted Date Comments Guaifenesin & Derivatives 10/11/2000 Daily--hives Lisinopril Edema face/lips/tongue High 08/05/2021 documented as of this encounter (statuses as of 09/21/2023) Medications Medication Sig Dispensed Refills Start Date [...] as of this encounter (statuses as of 09/21/2023) Active Problems Problem Noted Date Diagnosed Date Exudative age-related macula r degeneration, bilateral, with active choroidal neovascularization 02/08/2022 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 02/08/2022 Gastro-esophageal reflux disease without esophag itis 02/08/2022 Dyslipidemia 02/08/2022 HTN, goal below 140/90 02/08/2022 Varicose vein of leg 01/08/2003 Macular degeneration 08/31/2002 CARDIAC MURMURS NEC documented as of this encounter (statuses as of 09/21/2023) Immunizations Name Administration Dates Next Due COVID-19 mRNA, LNP-s, No Pre serve, 2-Dose Series (Moderna) 09/16/2020 Pneumococcal Conjugate Vacc, 13 Valent (Prevnar) 03/15/2016 Pneumococcal Polysaccharide PPV23 (Pneumovax) Seasonal Influenza, Quadrivalent Hd (Fluzone Hd) 03/04/2023,02/08/2022 TDAP (age 11 and older)(Adacel) 07/10/2016,08/12 documented [...] Description 10/03/2023 10:00 AM EDT Imaging Radiology [address] [address] 10/03/2023 3:10 PM EDT Imaging Radiology [address] [address] 03/16/2024 2:40 PM EDT Office Visit [facility] [address] [place] [phone] Toby Bell MD [address] [place] [address] Scheduled Orders Name Type Priority Associated Diagnoses [...] breast documented in this encounter Care Teams [employer] Human[employer] Teacher Relationship Specialty Start Date End Date Toby Bell MD [address] [place] [address] PCP - General Family Medicine 02/08/22 documented as of this encounter
--- OUTSIDE RECORDS SUMMARY | 2023-12-07 20:37 | External Medical Summary ---
Author Name Unknown Address Unknown Organization [facility] [address] [place] [address] Laboratory Report Ordering Provider Test Date Status JEMMA HOPPER 10/13/2023 10:35:40 Final Observation Date Value Abnormality Reference (Units ) Status WBC, Total 10/13/2023 10:35:40 3.43 Below low normal 4. 00-10.80 (K/uL) Final RBC 10/13/2023 10:35:40 4.43 3.85-5.15 (M/uL) Final Hemoglobin 10/13/2023 10:35:40 14.1 12.0-15.3 (g/dL) Final HCT 10/13/2023 10:35:40 43.4 36.0-45.2 (%) Final MCV 10/13/2023 10:35:40 98.0 81.5-97.5 (fL) Final MCH 10/13/2023 10:35:40 31.8 27.0-34.0 (pg) Final MCHC 10/13/2023 10:35:40 32.5 32.0-36.0 (g/dL) Final RDW 10/13/2023 10:35:40 13.9 11.5-15.5 (%) Final Platelets 10/13/2023 10:35:40 202 140-400 (K /uL) Final MPV 10/13/2023 10:35:40 10.9 6.6-11.1 ( fL) Final Performing Location [facility] [place] [address]
--- OUTSIDE RECORDS SUMMARY | 2023-12-07 20:37 | External Medical Summary | Summary of Care ---
Author Name Unknown Organization [facility] Address [address] [place] [address] Phone [phone] Care Team Providers Care Vat House Laborer Name Role Phone Toby Bell MD Primary Care Provider +1- [phone] Encounter Details Date Type Department Care Team (Late st Contact Info) Description 10/18/2023 Telephone General Surgery, [facility] [address] [facility] [place] [address] Mariah Abdul MD [address] [facility] [place] [address] Allergies Active Allergy Reactions Criticality Noted Date Comments Guaifenesin & Derivatives 10/11/2000 Daily--hives Lisinopril Edema face/lips/tongue High 08/05/2021 documented as of this encounter (statuses as of 10/18/2023) Medications Medication Sig Dispensed Refills Start Date [...] as of this encounter (statuses as of 10/18/2023) Active Problems Problem Noted Date Diagnosed Date [...] as of this encounter (statuses as of 10/18/2023) Immunizations Name Administration Dates Next Due COVID-19 [...] Telephone Encounter - Madalyn Lewis OSA - 10/18/2023 2:05 PM EDT Scheduled on 10/28/[address] Casillas * Telephone Encounter - Juliet Lambert LPN - 10/18/2023 1:52 PM EDT Patients EKG was abnormal and it was sent to anesthesia. They feel that she needs to go to her PCP and get some kind of clearance for surgery and order an needed tests. Could you please get that scheduled for her. documented in this encounter Plan of Treatment Upcoming Encounters Date Type Department Care Team (Latest Contact Info) Description 10/24/2023 3:00 PM EDT Office Visit Hematology/Oncolog y [facility] [place] [address] [facility] [place] [phone] Nas Palacios MD [address] [facility] [place] [address] 10/28/2023 3:00 PM EDT Office Visit [facility] [address] [place] [phone] Favian Loomis MD [address] [place] [address] 11/02/2023 9:30 AM EDT Imaging [facility] [address] [place] [address] 11/02/2023 11:37 AM EDT Hospital Encounter OR [facility], Operating Room [facility] [address] [place] [phone] Mariah Abdul MD [address] [place] [address] 11/02/2023 11:37 AM EDT - 11/02/2023 1:44 PM EDT Surgery OR [facility], Operating Room [facility] [address] [place] [phone] Mariah Abdul MD [address] [place] [address] MASTECTOMY PARTIAL 11/02/2023 3:10 PM EDT Imaging Radiology [facility]st [facility] [address] [facility] [place] [address] 11/04/2023 9:15 AM EDT Scheduled Telephone General Surgery, [facility] 132 [facility] [place] [address] [facility], Nurse Gen Surg [facility] 132 [facility] [place] [address] 11/17/2023 9:30 AM EDT Office Visit General Surgery, [facility] [address] [facility] [place] [address] Mariah Abdul MD 132 [facility] [place] [address] 02/03/2024 10:30 AM EDT Telemedicine Genetics Hem[facility]c, [facility] [address] [place] [address] [place], [place] [address] [place] [address] 03/16/2024 2:40 PM EDT Office Visit [facility] [address] [place] [phone] Toby Bell MD [address] [place] [address] 04/10/2024 10:30 AM EST Imaging Radiology, [address] [place], [place] [address] Scheduled Procedures Name Priority Associated Diagnoses Date/Ti me MASTECTOMY PARTIAL Malignant neoplasm of upper-inner quadrant of left breast in female, estrogen receptor negative (HCC) 11/02/2023 11:37 AM EDT BIOPSY LYMPH NODE DEEP AXILLARY OPEN Malignant neoplasm of upper-inner quadrant of left breast in female, estrogen receptor negative (HCC) 11/02/2023 11:37 AM EDT INJECTION PROCEDURE FOR IDENTIFICATION SENTINEL NODE Malignant neoplasm of upper-inner quadrant of left breast in female, estrogen receptor negative (HCC) 11/02/2023 11:37 AM EDT Health Maintenance Due Date Last [...] filedocumented as of this encounter Care Teams Vat House Laborer Relationship Specialty Start Date End Date Toby Bell MD [address] [place] [address] PCP - General Family Medicine 02/08/22 documented as of this encounter
--- OUTSIDE RECORDS SUMMARY | 2023-12-07 20:37 | External Medical Summary | Summary of Care ---
Author Name Unknown Organization [facility] Address [address] [place] [address] Phone [phone] Care Team Providers Care Atomic Welder Name Role Phone Toby Bell MD Primary Care Provider +1- [phone] Encounter Details Date Type Department Care Team (Late st Contact Info) Description 10/23/2023 Orders Only Hematology/Oncology, [facility] [address] [place] [address] Nas Palacios MD [address] [facility] [place] [address] Allergies Active Allergy Reactions Criticality Noted Date Comments Guaifenesin & Derivatives 10/11/2000 Daily--hives Lisinopril Edema face/lips/tongue High 08/05/2021 documented as of this encounter (statuses as of 10/23/2023) Medications Medication Sig Dispensed Refills Start Date [...] as of this encounter (statuses as of 10/23/2023) Active Problems Problem Noted Date Diagnosed Date [...] as of this encounter (statuses as of 10/23/2023) Immunizations Name Administration Dates Next Due COVID-19 [...] 3:00 PM EDT Office Visit [facility] [address] [place], [place] [address] Nas Palacios MD [address] [place] [address] 10/28/2023 3:00 PM EDT Office Visit [facility] [address] [place] [address] Favian Loomis MD [address] [place] [facility] [address] 11/02/2023 9:30 AM EDT Imaging [facility] [address] [place] [address] 11/02/2023 10:48 AM EDT Hospital Encounter OR [facility], Operating Room [facility] [address] [place] [phone] Mariah Abdul MD [address] [place] [address] 11/02/2023 10:48 AM EDT - 11/02/2023 12:55 PM EDT Surgery OR [facility], Operating Room [facility] [address] [place] [phone] Mariah Abdul MD [address] [place] [address] MASTECTOMY PARTIAL 11/02/2023 3:10 PM EDT Imaging Radiology [facility] 1st [facility] [address] [place] [address] 11/04/2023 9:15 AM EDT Scheduled Telephone General Surgery, [facility] [address] [place] [address] Heri, Nurse Gen Surg [facility] [address] [place] [address] 11/17/2023 9:30 AM EDT Office Visit General Surgery, [facility] [address] [place] [address] Mariah Abdul MD [address] [place] [address] 02/03/2024 10:30 AM EDT Telemedicine Genetics [facility]c, [facility] [address] [place] [address] Mabel Ford, [place] [address] [place] [address] 03/16/2024 2:40 PM EDT Office Visit Family [facility] [address] [place] [phone] Toby Bell MD [address] [place] [address] 04/10/2024 10:30 AM EST Imaging Radiology, [address] [address] Scheduled Procedures Name Priority Associated Diagnoses Date/Ti [...] filedocumented as of this encounter Care Teams Atomic Welder Relationship Specialty Start Date End Date Toby Bell MD [address] [place] [address] PCP - General Family Medicine 02/08/22 documented as of this encounter
--- OUTSIDE RECORDS SUMMARY | 2023-12-07 20:37 | External Medical Summary | Summary of Care ---
Author Name Unknown Organization [facility] Address [address] [place] [address] Phone [phone] Care Team Providers Care Car Porter Name Role Phone Toby Bell MD Primary Care Provider +1- [phone] Reason for Visit * Reason Comments Outpatient Testing Encounter Details Date Type Department Care Team (Late st Contact Info) Description 10/13/2023 10:40 AM EDT Laboratory [facility] [address] [facility] [address] [facility] [address] [place] [address] Malignant neoplasm of upper-inner quadrant of left breast in female, estrogen receptor negative (HCC) Allergies Active Allergy Reactions Criticality Noted Date Comments Guaifenesin & Derivatives 10/11/2000 Daily--hives Lisinopril Edema face/lips/tongue High 08/05/2021 documented as of this encounter (statuses as of 10/13/2023) Medications Medication Sig Dispensed Refills Start Date [...] as of this encounter (statuses as of 10/13/2023) Active Problems Problem Noted Date Diagnosed Date [...] as of this encounter (statuses as of 10/13/2023) Immunizations Name Administration Dates Next Due COVID-19 [...] Team (Late st Contact Info) Description 11/02/2023 Hospital Encounter [facility], Operating Room [facility] [address] [place] [phone] Mariah Abdul MD [address] [place] [address] 11/02/2023 9:30 AM EDT Imaging [facility] 2nd Floor Cardiology, [place] [address] [place] [address] 11/02/2023 3:10 PM EDT Imaging Radiology [facility], [place] [address] [place] [address] 11/17/2023 9:30 AM EDT Office Visit General Surgery, [facility] [address] [place] [address] Mariah Abdul MD [address] [place] [address] 03/16/2024 2:40 PM EDT Office Visit [facility] [address] [place] [address] Toby Bell MD [address] [place] [address] 04/10/2024 10:30 AM EST Imaging Radiology, [address] [place] [address] Pending Results Name Type Priority Associated Diagnoses Date /Time BASIC METABOLIC PANEL Lab Pre-operative Malignant neoplasm of upper-inner quadrant of left breast in female, estrogen receptor negative (HCC) 10/13/2023 10:35 AM EDT CBC Lab Pre-operative Malignant neoplasm of upper-inner quadrant of left breast in female, estrogen receptor negative (HCC) 10/13/2023 10:35 AM EDT Scheduled Procedures Name Priority Associated Diagnoses Date/Ti me MASTECTOMY PARTIAL Malignant neoplasm of upper-inner quadrant of left breast in female, estrogen receptor negative (HCC) BIOPSY LYMPH NODE DEEP AXILL LESLIE OPEN Malignant neoplasm of upper-inner quadrant of left breast in female, estrogen receptor negative (HCC) INJECTION PROCEDURE FOR IDENTIFICATION SENTINEL NODE Malignant neoplasm of upper-inner quadrant of left breast in female, estrogen receptor negative (HCC) Health Maintenance Due Date Last Done Comments DXA Scan 1940 Albumin/Creatinine Ratio 09/16/1958 COVID-19 Vaccine (3 - 2022- season) 2023 09/16/2020, 08/15/2020 HbA1c 05/06/2023 11/04/2022 GFR 11/05/2023 11/04/2022, 01/21, 10/22/1999, Additional history exists Diabetic Eye Exam 12/16/2023 12/15/2022, , 12/15/2022, Additional history exists Depression Screening 10/10/2024 10/11/2023 Diabetic Foot Exam 10/10/2024 10/11/2023 DTaP,Tdap,and Td Vaccines (3 - Td or [...] (HCC) documented in this encounter Care Teams Car Porter Relationship Specialty Start Date End Date Toby Bell MD [address] [place] [address] PCP - General Family Medicine 02/08/22 documented as of this encounter
--- OUTSIDE RECORDS SUMMARY | 2023-12-07 20:37 | External Medical Summary | Summary of Care ---
Author Name Unknown Organization [facility] Address [address] [place] [address] Phone [phone] Care Team Providers Care Chauffeur Name Role Phone Toby Bell MD Primary Care Provider +1- [phone] Reason for Visit * Reason Onset Date Comments Advice 06/08/2023 Encounter Details Date Type Department Care Team (Late st Contact Info) Description 06/08/2023 Telephone [facility] [address] [place] [address] Toby Bell MD [address] [place] [address] Advice Allergies Active Allergy Reactions Criticality Noted Date Comments Guaifenesin & Derivatives 10/11/2000 Daily--hives Lisinopril Edema face/lips/tongue High 08/05/2021 documented as of this encounter (statuses as of 09/07/2023) Medications Medication Sig Dispensed Refills Start Date [...] as of this encounter (statuses as of 09/07/2023) Active Problems Problem Noted Date Diagnosed Date Exudative age-related macula r degeneration, bilateral, with active choroidal neovascularization 02/08/2022 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 * Telephone Encounter - Chantal Leon OSA - 06/08/2023 11:21 AM EST Pt needs most recent appt notes to be faxed out to [phone] documented in this encounter Plan of Treatment Upcoming Encounters Date Type Department Care Team (Late st Contact Info) Description 09/16/2023 11:30 AM EDT Imaging Radiology [facility]st [facility] [address] [facility] [place] [address] 09/16/2023 12:00 PM EDT Imaging Radiology [facility] [address] [facility] [place] [address] 03/16/2024 2:40 PM EDT Office Visit [facility] [address] [place] [facility] [place] [phone] Toby Bell MD [address] [place] [address] Health Maintenance Due Date Last Done Comments [...] filedocumented as of this encounter Care Teams Chauffeur Relationship Specialty Start Date End Date Toby Bell MD [address] [place] [address] PCP - General Family Medicine 02/08/22 documented as of this encounter
--- OUTSIDE RECORDS SUMMARY | 2023-12-07 20:37 | External Medical Summary | Summary of Care ---
Author Name Unknown Organization [facility] Address [address] [place] [address] Phone [phone] Care Team Providers Care Pet Walker Name Role Phone Toby Bell MD Primary Care Provider +1- [phone] Reason for Visit * Reason Onset Date Comments Referral 10/11/2023 Encounter Details Date Type Department Care Team (Late st Contact Info) Description 10/11/2023 Telephone General Surgery, [place] [address] [place] [address] Services, Scheduling [address] [place] [address] Referral Allergies Active Allergy Reactions Criticality Noted Date Comments Guaifenesin & Derivatives 10/11/2000 Daily--hives Lisinopril Edema face/lips/tongue High 08/05/2021 documented as of this encounter (statuses as of 10/11/2023) Medications Medication Sig Dispensed Refills Start Date [...] as of this encounter (statuses as of 10/11/2023) Active Problems Problem Noted Date Diagnosed Date Exudative age-related macula r degeneration, bilateral, with active choroidal neovascularization 02/08/2022 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 Bell Consult: Breast Surgery (corrected) For: Left breast Invasive mammary carcinoma Attempted to contact patient to schedule appointment - left message on primary phone for patient toreturn call. Also attempted secondary number, went straight to vmail and there was no vmail set up,unable to leave message. Will offer appointment with first available provider - pt surendra for New Breast Cancer spot with Dr. Dennis or Dr. Abdul. Candy Coley LPN Intake Nurse Navigator General Surgery and Breast Clinic [facility] documented in this encounter Plan of Treatment Upcoming Encounters Date Type Department Care Team (Late st Contact Info) Description 03/16/2024 2:40 PM EDT Office Visit [facility] [address] [place] [facility] [place] [address] Toby Bell MD [address] [place] [address] 04/10/2024 10:30 AM EST Imaging Radiology, [address] [place] [address] Health Maintenance Due Date Last Done Comments [...] filedocumented as of this encounter Care Teams Pet Walker Relationship Specialty Start Date End Date Toby Bell MD [address] [place] [address] PCP - General Family Medicine 02/08/22 documented as of this encounter
--- OUTSIDE RECORDS SUMMARY | 2023-12-07 20:37 | External Medical Summary ---
Author Name Unknown Address Unknown Organization [facility] [address] [place] [address] Laboratory Report Ordering Provider Test Date Status JEMMA HOPPER 10/13/2023 10:35:40 Final Observation Date Value Abnormality Reference (Units ) Status BUN 10/13/2023 10:35:40 18 6-20 (mg/dL) Final Creatinine 10/13/2023 10:35:40 0.8 0.5-1.0 (mg/dL) Final Glomerular filtration rate/1.73 sq M.predicted [Volume Rate/Area] in Serum, Plasma or Blood by Creatinine-based formula (CKD-EPI) 10/13/2023 10:35:40 69 >=60 (mL/min) Final eGFR is calculated based on the CKD-EPI 2020 equation Sodium 10/13/2023 10:35:40 141 135-146 (m mol/L) Final Potassium 10/13/2023 10:35:40 4.4 3.5-5.1 (m mol/L) Final Cl 10/13/2023 10:35:40 104 98-107 (mm ol/L) Final CO2 10/13/2023 10:35:40 27 22-32 (mmo l/L) Final Anion gap 10/13/2023 10:35:40 10 7-15 (mmol /L) Final Glucose 10/13/2023 10:35:40 111 70-120 (mg /dL) Final Calcium 10/13/2023 10:35:40 9.8 8.4-10.2 ( mg/dL) Final Performing Location [facility] [place] [address]
--- OUTSIDE RECORDS SUMMARY | 2023-12-07 20:37 | External Medical Summary | Summary of Care ---
Author Name Unknown Organization [facility] Address [address] [place] [address] Phone [phone] Care Team Providers Care Silverware Buffer Name Role Phone Toby Bell MD Primary Care Provider [phone] Reason for Referral * Evaluate & Treat - Unlimited Visits (Within 10 days (routine)) - Authorized Specialty Diagnoses / Procedures Referred By Ese t Referred To Contact Hematology/Oncology / Hematology Oncology Diagnoses Malignant neoplasm of upper-inner quadrant of left breast in female, estrogen receptor negative (HCC) Mariah Abdul MD [address] [place] [address] Referral ID Status Reason Start Date Expiration Date Visits Requested Visits Authorized [id number] Authorized Specialty Services Required 10/13/2023 999 999 Question Answer Referral Priority Within 10 days (routine) Where should this appointment be scheduled? [facility] Reason for Referral Malignant Oncology (Solid Organ Cancer) Comments Please see soon to decide if neoadjvuant chemo is needed 3.3 cm triple negative node negative left breast ca (ER 1%, AR/ Her neg) * Evaluate & Treat - Unlimited Visits (Within 10 days (routine)) - Authorized Specialty Diagnoses / Procedures Referred By Contac t Referred To Contact Medical Genetics / Hematology Oncology Diagnoses Malignant neoplasm of upper-inner quadrant of left breast in female, estrogen receptor negative (HCC) Preoperative examination Mariah Abdul MD [address] [place] [address] Referral ID Status Reason Start Date Expiration Date Visits Requested Visits Authorized [id number] Authorized Specialty Services Required 10/13/2023 999 999 Question Answer Referral Priority Within 10 days (routine) Where should this appointment be scheduled? [facility] Is this referral request related to one of the following genetics sub-specialties? If unsure of category, use Medical Genetics Ask-A-Doc. Cancer Personal history of cancer? Yes Type of cancer and age at diagnosis: triple negative age 83, breast can Family history of cancer? No Has patient OR family member had genetic testing previously? No * Precert (Within 10 days (routine)) - Pending Review Specialty Diagnoses / Procedures Referred By Ese medina Referred To Contact Radiology Diagnoses Malignant neoplasm of upper-inner quadrant of left breast in female, estrogen receptor negative (HCC) Procedures NM BREAST LYMPH GLAND RADIOLOGIST INJECTION Mariah Abdul MD [address] [address] Referral ID Status Reason Start Date Expiration Date V isits Requested Visits Authorized [id number] Pending Review 10/20/2023 999 999 Reason for Visit * Reason Comments NEW PATIENT Breast issue, mammog nilo, US. Than biopsy now needs surgery per pt. * Evaluate & Treat - Unlimited Visits (Within 10 days (routine)) - Authorized Specialty Diagnoses / Procedures Referred By Ese medina Referred To Contact General Surgery Diagnoses Malignant neoplasm of left female breast, unspecified estrogen receptor status, unspecified site of breast (HCC) Toby Bell MD [address] [place] [address] Referral ID Status Reason Start Date Expiration Date Visits Requested Visits Authorized [id number] Authorized Specialty Services Required 10/11/2023 999 999 Encounter Details Date Type Department Care Team (Late st Contact Info) Description 10/13/2023 9:00 AM EDT Office Visit General Surgery, [facility] [address] [place] [address] Mariah Abdul MD [address] [place] [address] Malignant neoplasm of upper-inner quadrant of left breast in female, estrogen receptor negative (HCC)*; Preoperative examination Allergies Active Allergy Reactions Criticality Noted Date [...] Sign Reading Time Taken Comments Blood Pressure 160/77 10/13/2023 9:16 AM EDT Pulse 76 10/13/2023 9:16 AM EDT Temperature 36.5 C (97.7 F) 10/13/2023 9:16 AM ED T Respiratory Rate - - Oxygen Saturation - - Inhaled Oxygen Concentration - - Weight 62.2 kg (137 lb 1.6 oz) 10/13/2023 9:16 A M EDT Height 162.6 cm (5' 4") 10/13/2023 9:16 AM EDT Body Mass Index 23.53 10/13/2023 9:16 AM EDT documented in this encounter Progress Notes * Mariah Abdul MD - 10/13/2023 9:37 AM EDT Images from the original note were not included. [facility] NEW BREAST EXAM CLINIC NOTES Chief Complaint Patient presents with NEW PATIENT Breast issue, mammogram, US. Than biopsy now needs surgery per pt. REASON FOR CONSULTATION: Left breast cancer HPI: Humaira Stack is a 83 year old female who is seen at the request of Toby Bell MD for evaluation of left breast cancer. She fell in October while carrying a bag of dirt to the top of a hill and then noticed a left breast mass. She attributed this to the fall and thus did not seek treatment. The mass has not changed in size. After she returned from visiting family, she did undergo a diagnostic mammogram and ultrasound. This showed a 3.3 cm spiculated mass in the left upper inner quadrant.Ultrasound of the axilla was negative. Ultrasound- guided core biopsy revealed a high-grade invasiveductal cancer, estrogen receptor 1%, progesterone receptor negative, Her2 negative. Marker in good p osition A. Left breast, 10 o'clock 7 cm from the nipple, needle core biopsy: -- Invasive mammary carcinoma, grade 3. -- See comment. Comment: This tumor has ductal and metaplastic differentiation. Prognostic markers will be reportedseparately. at 1143 Order Comments Palpable mass left breast 10:00 concerning for malignancy Gross Description A. Breast, Left. Received in formalin with a container labeled with "Humaira Jarrett Sreekanth", "[id number]", "1940" and " left breast ten o'clock 7 cm from nipple". Received are multiple cores of munoz-yellow fibroadipose tissue ranging from less than 0.1 cm to 1.8 cm in length, each approximately 0.2 cm in diameter. The specimen is entirely submitted in cassette A1. Collection/ischemic time: time 1034, date 10/03/2023, time in formalin: time not provided, date 10/03/2023. Gross By: MR Microscopic Description Microscopic examination shows small nests of infiltrating epithelial cells without luminal formation with nuclei are 3-4 larger than normal duct epithelial nuclei and containing prominent nucleoli (upper-left image). Mitotic figures are frequent (>10/10hpf). The presence of lymphovascular invasion is indeterminate. Positive immunohistochemical staining of this invasive tumor with e-cadherin con firms the ductal differentiation (middle image). Immunohistochemical assays with differential basalcytokeratin 34?E12 and luminal cytokeratins 7/18 demonstrate a neoplastic monoclonal growth pattern(upper-right image). The largest dimension of invasive tumor in the specimen is 14 mm. Antibody Result in this case Application BNC5 Positive Detects atypia and malignancy E-cadherin Positive Marker of ductal differentiation GATA3 Focally positive Positive in breast and bladder carcinomas TRPS1 Positive Sensitive and specific marker of breast differentiation Estrogen Receptor (ER) protein expression is WEAKLY POSITIVE 1% nuclear positivity 1+ average intensity score (range 0 to 3+) Progesterone Receptor (AR) protein expression is NEGATIVE <1% nuclear positivity COMMENT: Assay internal and external control immunoreactivity is appropriate. HER2 oncoprotein expression is NEGATIVE ( 0 average membranous intensity) BREAST ROS: No severe breast pain and No nipple discharge GYNECOLOGIC HISTORY: LMP: No LMP recorded. Patient is postmenopausal. Menarche at age: 14 Menopause at age: early 60's Number of children: 3 Patient's age at first live : Yes- 18 years old Did you breast feed any of your children: Yes- tried but could not , she had 3 pregnacies and lost one Ever take oral contraceptives? No Ever take estrogen? No RADIOLOGIC INTERPRETATION: 09/16/23 Result US BREAST LIMITED LEFT MAMMOGRAM DIAGNOSTIC CARINA BILATERAL History Mass of upper outer quadrant of left breast The patient has no documented relevant family history. Films Compared No priors available for review Findings Left MAMMOGRAM DIAGNOSTIC CARINA BILATERAL/US BREAST LIMITED LEFT The left breast has scattered areas of fibroglandular density. The patient presents with area of palpable concern left breast upper inner quadrant posterior depth. Oval-shaped mass within the left upper inner quadrant measuring 32 x 23 mm is noted. Targeted ultrasound demonstrates a corresponding hypoechoic solid mass left breast ten o'clock 7 cm from the nipple measuring 31 x 19 x 22 mm. Left axillary lymph nodes are normal in appearance. Right MAMMOGRAM DIAGNOSTIC CARINA BILATERAL The right breast has scattered areas of fibroglandular density. There is no evidence of suspicious masses, calcifications, or other abnormal findings in the right breast. Impression Solid-appearing left breast mass corresponding to area of palpable concern. Ultrasound-guided core biopsy is recommended at this time. BI-RADS Category: 4 - Suspicious. Recommendation US guided breast core biopsy is recommended for the left breast. Resume annual screening mammography is recommended for the right breast. 10/03/23: ADDENDUM: A. Left breast, 10 o'clock 7 cm from the nipple, needle core biopsy: -- Invasive mammary carcinoma, grade 3. Imaging and pathology are concordant. Pathology results were reviewed with the patient by the ordering clinician on October 11, 2023. Surgical and oncologic consultation are recommended at this time. Signed by Shefali Felipe MD on 10/12/2023 17:17 Narrative & Impression EXAM US GUIDED BREAST BIOPSY LEFT; MAMMOGRAM POST BIOPSY CLIP PLACEMENT- 10/03/2023 10:51 am; 10/03/2023 10:56 am HISTORY Abnormal breast ultrasound; abnormal mammo COMPARISON Prior examination September 16, [address] Felipe was present for and performed the entire procedure. FINDINGS After a discussion of risks, benefits and alternative to the procedure as well as a detailed explanation of the procedure, the patient was given the opportunity to ask questions. After her questions were answered to her satisfaction, informed consent with agreement of procedure, site and position wa s obtained. A timeout procedure was performed by Dr. Shefali Felipe in the presence of Raymundo Bethea and it was confirmed that procedure matches verbalized consent. All necessary equipment was available prior to procedure. The site of the intended procedure was marked on the skin. Patient denies allergies to lidocaine or tape. She has no known blood dyscrasias and is not taking anticoagulant medication. Preliminary ultrasound demonstrates a hypoechoic mass left breast ten o'clock 7 cm from the nipple measuring 24 x 19 x 30 mm.. Using aseptic technique, local anesthesia with 1% buffered lidocaine, and ultrasound guidance, core biopsy was performed. Passes through the target were documented. A heartshaped marker was placed in the nodule. Post procedural mammogram verified clip placement. The patient tolerated the procedure well and there were no complications. Specimens were sent to surgical pathology and results are pending. Written discharge instructions were given to the patient and also reviewed verbally with her. The patient expressed understanding of the instructions and was discharged from the department in stable condition. IMPRESSION IMPRESSION Ultrasound-guided core biopsy of left breast mass performed. I personally viewed and interpreted the mammographic films and concur with the above. FAMILY HISTORY: Family history of breast cancer: None Family history of ovarian cancer: None Family History Problem Relation Name Age of Onset Diabetes Mother Heart Disorder Mother Bypass Other (Hyperlipidemia) Mother Neurological Disorder Father Multiple sclerosis Diabetes Grandmother (Maternal) Heart Disorder Grandmother (Maternal) Heart Disorder Aunt (Unspecified) Heart Disorder Uncle (Unspecified) Heart Disorder Uncle (Unspecified) Heart Disorder Uncle (Unspecified) Heart Disorder Uncle (Unspecified) [place] Cancer Uncle (Unspecified) throat Cancer Uncle (Unspecified) Cancer Uncle (Unspecified) Cancer Uncle (Unspecified) Other (Other) Son Lupus PAST MEDICAL HISTORY: Past Medical History: Diagnosis Date Macular degeneration Undiagnosed cardiac murmurs PAST SURGICAL HISTORY: Past Surgical History: Procedure Laterality Date CV STRESS (CARDIOLYTE) 07/06/99 Normal INFORMATION varicose veins stripped b/l INJECT DX/THER SUBSTANCE INTERLAMINAR LUMBAR/SACRAL W IMAGE GUIDE 04/22/2022 INJECTION SPINE LUMBAR OR SACRAL performed by Ad Villalba DO at OR [facility] MISCELLANEOUS ORDER removed bone palate in order to get dentures CURRENT OUTPATIENT PRESCRIPTIONS: Current Outpatient Medications Medication Sig Dispense Refill OCUVITE OR TABS 1 TABLET DAILY 30 0 Losartan Potassium 50 MG Oral Tablet (Cozaar) Take 1.5 Tablets by mouth in the morning. 135 Tablet 3 Atorvastatin Calcium 40 MG Oral Tablet (Lipitor) Take 1 Tablet by mouth in the morning. 90 Tablet 3 No current facility-administered medications for this visit. ALLERGIES: Lisinopril and Guaifenesin & derivatives SOCIAL HISTORY: Social History Tobacco Use Smoking status: Never Passive exposure: Never Smokeless tobacco: Never Substance Use Topics Alcohol use: No Vaping/E-Cigarette Use Vaping/E-Cigarette Use Never User Vaping/E-Cigarette Substances Vaping/E-Cigarette Devices ROS: GEN: no weight loss, fever, fatigue HEENT: pos for macular degeneration, wears glasses RESPIRATORY: no cough, wheezing, SOB or change in breathing CARDIOVASCULAR: no exertional chest pain, dyspnea, palpitations GI: no melena, hemetemesis, no vomiting or diarrhea : no dysuria, hematuria, frequency MUSCULOSKELETAL: no change in joint pains, no new arthritis PSYCHIATRIC: no significant anxiety or depression, unchanged sleep pattern HEME: no bleeding tendency, no clotting tendency NEURO: no significant headache, no seizures , no tremors SKIN: no new rashes, no itching PHYSICAL EXAMINATION Blood pressure 160/77, pulse 76, temperature 36.5 C (97.7 F), height 1.626 m (5' 4"), weight 62.2 kg (137 lb 1.6 oz). 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 BREAST EXAMINATION: Smaller breasted Right Breast: Right Breast: Masses noted: No Post XRT edema: No Post XRT erythema: No Other palpable abnormality: No Skin: Skin retraction: No Peau d'orange: No Telangectasia: No Scar(s) present: No Other changes: No Right Nipple: Nipple inversion: No Pagets: No Nipple discharge: No Right Lymph Nodes: Arm edema: No Palpable axillary adenopathy: No Palpable supraclavicular adenopathy: No Previous axillary incision: No Left Breast: Left Breast: Masses noted: Yes, large 3.5 cm mass in left upper inner quadrant causing visible protrusion, not fixed to skin or muscle Post XRT edema: No Post XRT erythema: No Other palpable abnormality: No Skin: Skin retraction: No Peau d'orange: No Telangectasia: No Scar(s) present: No Other changes: No Left Nipple: Nipple inversion: No Pagets: No Nipple discharge: No Left Lymph Nodes: Arm edema: No Palpable axillary adenopathy: No Palpable supraclavicular adenopathy: No Previous axillary incision: No ASSESSMENT: 83 year old woman with newly diagnosed 3.3 cm 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 We reviewed the need for medical Oncology consultation to see if any systemic therapy is warranted. This referral was placed. Clinically, she is node negative. We had a detailed discussion with the patient reviewing her diagnosis and treatment options. She understands that the treatment of breast cancer is a multidisciplinary approach potentially involving surgery, radiation oncology, and medical oncology. We reviewed surgical options for her breast, including breast conservation and mastectomy. We discussed that breast conservation requires both removal of the cancer to a negative margin and treatment with radiotherapy to the remaining breast tissue.We discussed that survival is not improved with more aggressive surgery (i.e. Mastectomy) and that mastectomy also does not eliminate the potential for breast cancer recurrence as a small amount of tissue is left to support the skin. In addition, more aggressive surgery does not eliminate the need for chemotherapy or targeted therapies; the decisions for these treatment choices are based upon thecancer's characteristics. She is a good candidate for breast conservation. Risks of lumpectomy (partial mastectomy) to include bleeding, infection, and cosmetic deformity of the breast. We also discussed the importance of negative margins and the fact that re-excision or even mastectomy can sometimes be required in subsequent procedures. As the lesion is palpable, she will not require a MANOLO advance scout. We will plan on specimen radiograph. Given her small breast size relative to the tumor, she likely will have a cosmetic deformity in her upper inner breast. She is comfortable with this plan.. Staging of the axilla with a sentinel node biopsy was reviewed. We discussed identification of the node with both technetium sulfur colloid and blue dye injection. Removal of 2-3 lymph nodes is typical, although there is a potential for removal of greater than 3 nodes also. There is a small (<5%) chance of a failed sentinel node biopsy where the nodes cannot be found. In this instance, a full axillary dissection would be performed as we are unable to know which nodes could potentially contain metastatic disease. Risks of sentinel node biopsy including bleeding, infection, and a small rate of lymphedema (6-12%) were discussed. Should a full axillary dissection be performed, the risk of lym phedema increases to 12-30%. Intraoperative assessment of sentinel nodes is not performed during the lumpectomy due to the ACOSOG Z0011 study showing equivalent survival when pts with <3 positive nodes are treated with radiation as opposed to axillary clearance. However, there are still instances where an axillary dissection could be needed as a second procedure (significant volume of disease with 4 or more nodes involved, focal extranodal extension). We reviewed the use of radiation therapy following lumpectomy and its important role in reducing inbreast local recurrence. We discussed that, in the absence of chemotherapy, radiation typically begins 4-6 weeks following surgery. We reviewed that while there are different courses of radiation that can be offered, the most common is done daily (Mon-Fri) for 3-4 weeks. Side effects of fatigue andlocal changes to the breast (skin thickening, hyperpigmentation, burning, telangectasia, change in shape of breast) were reviewed. She has scattered fibroglandular densities on mammography which is a good quality study for her. Does not need MRI scan. We discussed genetic counseling/testing given that she is essentially triple negative and there association with BRCA mutations. A referral was placed. We will get her scheduled for a left lumpectomy and sentinel node biopsy under general anesthesia as soon as possible. PLAN: In conclusion, our recommendation for this patient is left lumpectomy and sln biopsy. Medical oncology consultation to see if chemotherapy (? Neoadjuvant) is needed Genetic counseling/ testing I spent a total of Greater than 55 mins (exact time 62 mins) on the date of service in preparation,delivery, and documentation of the care provided to Humaira Stack excluding any time spent in the performance of separately billed services. Mariah Abdul M.D. 10/13/2023 11:44 AM documented in this encounter H&P Notes * Mariah Abdul MD - 10/13/2023 11:45 AM EDT Images from the original note were not included. [facility] NEW BREAST EXAM CLINIC NOTES Chief Complaint Patient presents with NEW PATIENT Breast issue, mammogram, US. Than biopsy now needs surgery per pt. REASON FOR CONSULTATION: Left breast cancer HPI: Humaira Stack is a 83 year old female who is seen at the request of Toby Bell MD for evaluation of left breast cancer. She fell in October while carrying a bag of dirt to the top of a hill and then noticed a left breast mass. She attributed this to the fall and thus did not seek treatment. The mass has not changed in size. After she returned from visiting family, she did undergo a diagnostic mammogram and ultrasound. This showed a 3.3 cm spiculated mass in the left upper inner quadrant.Ultrasound of the axilla was negative. Ultrasound- guided core biopsy revealed a high-grade invasiveductal cancer, estrogen receptor 1%, progesterone receptor negative, Her2 negative. Marker in good p osition A. Left breast, 10 o'clock 7 cm from the nipple, needle core biopsy: -- Invasive mammary carcinoma, grade 3. -- See comment. Comment: This tumor has ductal and metaplastic differentiation. Prognostic markers will be reportedseparately. at 1143 Order Comments Palpable mass left breast 10:00 concerning for malignancy Gross Description A. Breast, Left. Received in formalin with a container labeled with "Humaira Stack", "[id number]", "1940" and " left breast ten o'clock 7 cm from nipple". Received are multiple cores of munoz-yellow fibroadipose tissue ranging from less than 0.1 cm to 1.8 cm in length, each approximately 0.2 cm in diameter. The specimen is entirely submitted in cassette A1. Collection/ischemic time: time 1034, date 10/03/2023, time in formalin: time not provided, date 10/03/2023. Gross By: MR Microscopic Description Microscopic examination shows small nests of infiltrating epithelial cells without luminal formation with nuclei are 3-4 larger than normal duct epithelial nuclei and containing prominent nucleoli (upper-left image). Mitotic figures are frequent (>10/10hpf). The presence of lymphovascular invasion is indeterminate. Positive immunohistochemical staining of this invasive tumor with e-cadherin con firms the ductal differentiation (middle image). Immunohistochemical assays with differential basalcytokeratin 34?E12 and luminal cytokeratins 7/18 demonstrate a neoplastic monoclonal growth pattern(upper-right image). The largest dimension of invasive tumor in the specimen is 14 mm. Antibody Result in this case Application BNC5 Positive Detects atypia and malignancy E-cadherin Positive Marker of ductal differentiation GATA3 Focally positive Positive in breast and bladder carcinomas TRPS1 Positive Sensitive and specific marker of breast differentiation Estrogen Receptor (ER) protein expression is WEAKLY POSITIVE 1% nuclear positivity 1+ average intensity score (range 0 to 3+) Progesterone Receptor (AR) protein expression is NEGATIVE <1% nuclear positivity COMMENT: Assay internal and external control immunoreactivity is appropriate. HER2 oncoprotein expression is NEGATIVE ( 0 average membranous intensity) BREAST ROS: No severe breast pain and No nipple discharge GYNECOLOGIC HISTORY: LMP: No LMP recorded. Patient is postmenopausal. Menarche at age: 14 Menopause at age: early 60's Number of children: 3 Patient's age at first live : Yes- 18 years old Did you breast feed any of your children: Yes- tried but could not , she had 3 pregnacies and lost one Ever take oral contraceptives? No Ever take estrogen? No RADIOLOGIC INTERPRETATION: 09/16/23 Result US BREAST LIMITED LEFT MAMMOGRAM DIAGNOSTIC CARINA BILATERAL History Mass of upper outer quadrant of left breast The patient has no documented relevant family history. Films Compared No priors available for review Findings Left MAMMOGRAM DIAGNOSTIC CARINA BILATERAL/US BREAST LIMITED LEFT The left breast has scattered areas of fibroglandular density. The patient presents with area of palpable concern left breast upper inner quadrant posterior depth. Oval-shaped mass within the left upper inner quadrant measuring 32 x 23 mm is noted. Targeted ultrasound demonstrates a corresponding hypoechoic solid mass left breast ten o'clock 7 cm from the nipple measuring 31 x 19 x 22 mm. Left axillary lymph nodes are normal in appearance. Right MAMMOGRAM DIAGNOSTIC CARINA BILATERAL The right breast has scattered areas of fibroglandular density. There is no evidence of suspicious masses, calcifications, or other abnormal findings in the right breast. Impression Solid-appearing left breast mass corresponding to area of palpable concern. Ultrasound-guided core biopsy is recommended at this time. BI-RADS Category: 4 - Suspicious. Recommendation US guided breast core biopsy is recommended for the left breast. Resume annual screening mammography is recommended for the right breast. 10/03/23: ADDENDUM: A. Left breast, 10 o'clock 7 cm from the nipple, needle core biopsy: -- Invasive mammary carcinoma, grade 3. Imaging and pathology are concordant. Pathology results were reviewed with the patient by the ordering clinician on October 11, 2023. Surgical and oncologic consultation are recommended at this time. Signed by Shefali Felipe MD on 10/12/2023 17:17 Narrative & Impression EXAM US GUIDED BREAST BIOPSY LEFT; MAMMOGRAM POST BIOPSY CLIP PLACEMENT- 10/03/2023 10:51 am; 10/03/2023 10:56 am HISTORY Abnormal breast ultrasound; abnormal mammo COMPARISON Prior examination September 16, [address] Felipe was present for and performed the entire procedure. FINDINGS After a discussion of risks, benefits and alternative to the procedure as well as a detailed explanation of the procedure, the patient was given the opportunity to ask questions. After her questions were answered to her satisfaction, informed consent with agreement of procedure, site and position wa s obtained. A timeout procedure was performed by Dr. Shefali Felipe in the presence of Raymundo Bethea and it was confirmed that procedure matches verbalized consent. All necessary equipment was available prior to procedure. The site of the intended procedure was marked on the skin. Patient denies allergies to lidocaine or tape. She has no known blood dyscrasias and is not taking anticoagulant medication. Preliminary ultrasound demonstrates a hypoechoic mass left breast ten o'clock 7 cm from the nipple measuring 24 x 19 x 30 mm.. Using aseptic technique, local anesthesia with 1% buffered lidocaine, and ultrasound guidance, core biopsy was performed. Passes through the target were documented. A heartshaped marker was placed in the nodule. Post procedural mammogram verified clip placement. The patient tolerated the procedure well and there were no complications. Specimens were sent to surgical pathology and results are pending. Written discharge instructions were given to the patient and also reviewed verbally with her. The patient expressed understanding of the instructions and was discharged from the department in stable condition. IMPRESSION IMPRESSION Ultrasound-guided core biopsy of left breast mass performed. I personally viewed and interpreted the mammographic films and concur with the above. FAMILY HISTORY: Family history of breast cancer: None Family history of ovarian cancer: None Family History Problem Relation Name Age of Onset Diabetes Mother Heart Disorder Mother Bypass Other (Hyperlipidemia) Mother Neurological Disorder Father Multiple sclerosis Diabetes Grandmother (Maternal) Heart Disorder Grandmother (Maternal) Heart Disorder Aunt (Unspecified) Heart Disorder Uncle (Unspecified) Heart Disorder Uncle (Unspecified) Heart Disorder Uncle (Unspecified) Heart Disorder Uncle (Unspecified) [place] Cancer Uncle (Unspecified) throat Cancer Uncle (Unspecified) Cancer Uncle (Unspecified) Cancer Uncle (Unspecified) Other (Other) Son Lupus PAST MEDICAL HISTORY: Past Medical History: Diagnosis Date Macular degeneration Undiagnosed cardiac murmurs PAST SURGICAL HISTORY: Past Surgical History: Procedure Laterality Date CV STRESS (CARDIOLYTE) 07/06/99 Normal INFORMATION varicose veins stripped b/l INJECT DX/THER SUBSTANCE INTERLAMINAR LUMBAR/SACRAL W IMAGE GUIDE 04/22/2022 INJECTION SPINE LUMBAR OR SACRAL performed by Ad Villalba DO at OR [facility] MISCELLANEOUS ORDER removed bone palate in order to get dentures CURRENT OUTPATIENT PRESCRIPTIONS: Current Outpatient Medications Medication Sig Dispense Refill OCUVITE OR TABS 1 TABLET DAILY 30 0 Losartan Potassium 50 MG Oral Tablet (Cozaar) Take 1.5 Tablets by mouth in the morning. 135 Tablet 3 Atorvastatin Calcium 40 MG Oral Tablet (Lipitor) Take 1 Tablet by mouth in the morning. 90 Tablet 3 No current facility-administered medications for this visit. ALLERGIES: Lisinopril and Guaifenesin & derivatives SOCIAL HISTORY: Social History Tobacco Use Smoking status: Never Passive exposure: Never Smokeless tobacco: Never Substance Use Topics Alcohol use: No Vaping/E-Cigarette Use Vaping/E-Cigarette Use Never User Vaping/E-Cigarette Substances Vaping/E-Cigarette Devices ROS: GEN: no weight loss, fever, fatigue HEENT: pos for macular degeneration, wears glasses RESPIRATORY: no cough, wheezing, SOB or change in breathing CARDIOVASCULAR: no exertional chest pain, dyspnea, palpitations GI: no melena, hemetemesis, no vomiting or diarrhea : no dysuria, hematuria, frequency MUSCULOSKELETAL: no change in joint pains, no new arthritis PSYCHIATRIC: no significant anxiety or depression, unchanged sleep pattern HEME: no bleeding tendency, no clotting tendency NEURO: no significant headache, no seizures , no tremors SKIN: no new rashes, no itching PHYSICAL EXAMINATION Blood pressure 160/77, pulse 76, temperature 36.5 C (97.7 F), height 1.626 m (5' 4"), weight 62.2 kg (137 lb 1.6 oz). 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 BREAST EXAMINATION: Smaller breasted Right Breast: Right Breast: Masses noted: No Post XRT edema: No Post XRT erythema: No Other palpable abnormality: No Skin: Skin retraction: No Peau d'orange: No Telangectasia: No Scar(s) present: No Other changes: No Right Nipple: Nipple inversion: No Pagets: No Nipple discharge: No Right Lymph Nodes: Arm edema: No Palpable axillary adenopathy: No Palpable supraclavicular adenopathy: No Previous axillary incision: No Left Breast: Left Breast: Masses noted: Yes, large 3.5 cm mass in left upper inner quadrant causing visible protrusion, not fixed to skin or muscle Post XRT edema: No Post XRT erythema: No Other palpable abnormality: No Skin: Skin retraction: No Peau d'orange: No Telangectasia: No Scar(s) present: No Other changes: No Left Nipple: Nipple inversion: No Pagets: No Nipple discharge: No Left Lymph Nodes: Arm edema: No Palpable axillary adenopathy: No Palpable supraclavicular adenopathy: No Previous axillary incision: No ASSESSMENT: 83 year old woman with newly diagnosed 3.3 cm 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 We reviewed the need for medical Oncology consultation to see if any systemic therapy is warranted. This referral was placed. Clinically, she is node negative. We had a detailed discussion with the patient reviewing her diagnosis and treatment options. She understands that the treatment of breast cancer is a multidisciplinary approach potentially involving surgery, radiation oncology, and medical oncology. We reviewed surgical options for her breast, including breast conservation and mastectomy. We discussed that breast conservation requires both removal of the cancer to a negative margin and treatment with radiotherapy to the remaining breast tissue.We discussed that survival is not improved with more aggressive surgery (i.e. Mastectomy) and that mastectomy also does not eliminate the potential for breast cancer recurrence as a small amount of tissue is left to support the skin. In addition, more aggressive surgery does not eliminate the need for chemotherapy or targeted therapies; the decisions for these treatment choices are based upon thecancer's characteristics. She is a good candidate for breast conservation. Risks of lumpectomy (partial mastectomy) to include bleeding, infection, and cosmetic deformity of the breast. We also discussed the importance of negative margins and the fact that re-excision or even mastectomy can sometimes be required in subsequent procedures. As the lesion is palpable, she will not require a MANOLO advance scout. We will plan on specimen radiograph. Given her small breast size relative to the tumor, she likely will have a cosmetic deformity in her upper inner breast. She is comfortable with this plan.. Staging of the axilla with a sentinel node biopsy was reviewed. We discussed identification of the node with both technetium sulfur colloid and blue dye injection. Removal of 2-3 lymph nodes is typical, although there is a potential for removal of greater than 3 nodes also. There is a small (<5%) chance of a failed sentinel node biopsy where the nodes cannot be found. In this instance, a full axillary dissection would be performed as we are unable to know which nodes could potentially contain metastatic disease. Risks of sentinel node biopsy including bleeding, infection, and a small rate of lymphedema (6-12%) were discussed. Should a full axillary dissection be performed, the risk of lym phedema increases to 12-30%. Intraoperative assessment of sentinel nodes is not performed during the lumpectomy due to the ACOSOG Z0011 study showing equivalent survival when pts with <3 positive nodes are treated with radiation as opposed to axillary clearance. However, there are still instances where an axillary dissection could be needed as a second procedure (significant volume of disease with 4 or more nodes involved, focal extranodal extension). We reviewed the use of radiation therapy following lumpectomy and its important role in reducing inbreast local recurrence. We discussed that, in the absence of chemotherapy, radiation typically begins 4-6 weeks following surgery. We reviewed that while there are different courses of radiation that can be offered, the most common is done daily (Mon-Fri) for 3-4 weeks. Side effects of fatigue andlocal changes to the breast (skin thickening, hyperpigmentation, burning, telangectasia, change in shape of breast) were reviewed. She has scattered fibroglandular densities on mammography which is a good quality study for her. Does not need MRI scan. We discussed genetic counseling/testing given that she is essentially triple negative and there association with BRCA mutations. A referral was placed. We will get her scheduled for a left lumpectomy and sentinel node biopsy under general anesthesia as soon as possible. PLAN: In conclusion, our recommendation for this patient is left lumpectomy and sln biopsy. Medical oncology consultation to see if chemotherapy (? Neoadjuvant) is needed Genetic counseling/ testing I spent a total of Greater than 55 mins (exact time 62 mins) on the date of service in preparation,delivery, and documentation of the care provided to Humaira Stack excluding any time spent in the performance of separately billed services. Mariah Abdul M.D. 10/13/2023 11:44 AM documented in this encounter Nursing Notes * Juliet Lambert LPN - 10/13/2023 10:28 AM EDT Patient scheduled at [facility] for left breast partial mastectomy with Dr Mariah Abdul. Date of Test: TBS Medications reviewed. EKG obtained Labs: obtained Permit signed. Patient verbalizes understanding of pre- and post op instructions. Written instructions given for review at later date. Juliet Lambert LPN 10/13/2023 * Liyah Castillo LPN - 10/13/2023 9:16 AM EDT Patient identified by name and date of . Chief Complaint Patient presents with NEW PATIENT Breast issue, mammogram, US. Than biopsy now needs surgery per pt. Patient presents today for evaluation of Abnormal Mammogram. Patient had mammogram done at [facility] on 10/03/2023. BREAST HISTORY: Mass: No Breast Pain: no Nipple discharge: No Previous problems/surgeries: None Breast Cancer: no Other Cancers: no GYNECOLOGIC HISTORY: LMP: No LMP recorded. Patient is postmenopausal. Menarche at age: 14 Menopause at age: early 60's Number of children: 3 Patient's age at first live : Yes- 18 years old Did you breast feed any of your children: Yes- tried but could not , she had 3 pregnacies and lost one Ever take oral contraceptives? No Ever take estrogen? No Family History of Breast Cancer: No Pt stating that she fell last October and had a bump on her chest an thought it was from falling, she missed a routine mammogram because she was away( kids building her a new home, so she was away with other family in [place]). Recent mammogram and US showed breast cancer. Pt presents with her friend,brooks. Pt stating " I guess I am here because I need surgery" no family history of breast cancer. documented in this encounter Plan of Treatment Upcoming Encounters Date Type Department Care Team (Latest Contact Info) Description 11/02/2023 9:30 AM EDT Imaging [facility] 2nd Floor Cardiology, [place] [address] [place] [address] 11/02/2023 11:37 AM EDT Hospital Encounter [facility], Operating Room [facility] [address] [place] [phone] Mariah Abdul MD [address] [place] [address] 11/02/2023 11:37 AM EDT - 11/02/2023 1:44 PM EDT Surgery [facility], Operating Room [facility] [address] [place] [phone] Mariah Abdul MD [address] [place] [address] MASTECTOMY PARTIAL 11/02/2023 3:10 PM EDT Imaging Radiology [address] 132 [facility] [place] [address] 11/17/2023 9:30 AM EDT Office Visit General Surgery, [facility] 132 [facility] [place] [address] Mariah Abdul MD [address] [place] [address] 03/16/2024 2:40 PM EDT Office Visit [facility] [address] [place] [phone] Toby Bell MD [address] [place] [address] 04/10/2024 10:30 AM EST Imaging Radiology, [address] [place] [address] Scheduled Orders Name Type Priority Associated Diagnoses Orde r Schedule NM BREAST LYMPH GLAND RADIOLOGIST INJECTION Medical Imaging Routine Malignant neoplasm of upper-inner quadrant of left breast in female, estrogen receptor negative (HCC) Expected: 10/20/2023 (Approximate), Expires: 11/12/2024 Scheduled Procedures Name Priority Associated Diagnoses Date/Ti [...] receptor negative (HCC) 11/02/2023 11:37 AM EDT Scheduled Referrals Name Type Priority Associated Diagnoses Orde r Schedule GENETICS REFERRAL OP Referral Within 10 days (routine) Malignant neoplasm of upper-inner quadrant of left breast in female, estrogen receptor negative (HCC) Preoperative examination Ordered: 10/13/2023 HEMATOLOGY/ONCOLOGY REFERRAL OP Referral Within 10 days (routine) Malignant neoplasm of upper-inner quadrant of left breast in female, estrogen receptor negative (HCC) Ordered: 10/13/2023 Health Maintenance Due Date Last Done Comments [...] filedocumented as of this encounter Results * (ABNORMAL) CBC (10/13/2023 10:35 AM EDT) WBC 3.43(L) 4.00 - 10.80 K/uL 10/13/2023 10:59 AM EDT [facility] RBC 4.43 3.85 - 5.15 M/uL 10/13/2023 10:59 AM EDT [facility] HGB 14.1 12.0 - 15.3 g/dL 10/13/2023 10:59 AM EDT [facility] HCT 43.4 36.0 - 45.2 % 10/13/2023 10:59 AM EDT [facility] MCV 98.0 81.5 - 97.5 fL 10/13/2023 10:59 AM EDT [facility] MCH 31.8 27.0 - 34.0 pg 10/13/2023 10:59 AM EDT [facility] MCHC 32.5 32.0 - 36.0 g/dL 10/13/2023 10:59 AM EDT [facility] RDW 13.9 11.5 - 15.5 % 10/13/2023 10:59 AM EDT [facility] PLT 202 140 - 400 K/uL 10/13/2023 10:59 AM EDT [facility] MPV 10.9 6.6 - 11.1 fL 10/13/2023 10:59 AM EDT [facility] Blood Venous blood specimen / Unknown Venipuncture / Unknown 10/13/2023 10:35 AM EDT 10/13/2023 10:35 AM EDT Mariah Abdul MD LAB BLOOD ORDERABLE S [facility] [place] [id number] * BASIC METABOLIC PANEL (10/13/2023 10:35 AM EDT) BUN 18 6 - 20 mg/dL 10/13/2023 11:11 AM EDT [facility] Creatinine 0.8 0.5 - 1.0 mg/dL 10/13/2023 11:11 AM EDT [facility] Estimated Glomerular Filtration Rate 69 >=60 mL/min 10/13/2023 11:11 AM EDT [facility] Comment:eGFR is calculated b ased on the CKD-EPI 2020 equation Sodium 141 135 - 146 mmol/L 10/13/2023 11:11 AM EDT [facility] Potassium 4.4 3.5 - 5.1 mmol/L 10/13/2023 11:11 AM EDT [facility] Chloride 104 98 - 107 mmol/L 10/13/2023 11:11 AM EDT [facility] CO2 27 22 - 32 mmol/L 10/13/2023 11:11 AM EDT [facility] Anion Gap 10 7 - 15 mmol/L 10/13/2023 11:11 AM EDT [facility] Glucose 111 70 - 120 mg/dL 10/13/2023 11:11 AM EDT [facility] Calcium 9.8 8.4 - 10.2 mg/dL 10/13/2023 11:11 AM EDT [facility] Blood Venous blood specimen / Unknown Venipuncture / Unknown 10/13/2023 10:35 AM EDT 10/13/2023 10:35 AM EDT Mariah Abdul MD LAB BLOOD ORDERABLE S [facility] [address] [facility] [place] [address] * EKG (10/13/2023 10:19 AM EDT) 10/13/2023 10:1 9 AM EDT Narrative Procedure Note Kenny Morris DO - 10/13/2023 10:19 AM EDT REASON FOR STUDY: preop;preop CONCLUSIONS: Sinus bradycardia High QRS voltage may be normal variant or due to lve Septal infarct , age undetermined Abnormal ECG No previous ECGs available Ventricular Rate: 57 Atrial Rate: 57 AR Interval: 130 QRS Duration: 76 QT/QTc: 442/430 ms P-R-T [place]: 47 : -25 : 43 degrees Mariah Abdul MD EKG [facility]OLOG[facility] documented in this encounter Visit Diagnoses Diagnosis Malignant neoplasm of upper-inner quadrant of left breast in female, estrogen receptor negative (HCC)- Primary Preoperative examination Preoperative examination, unspecified Malignant neoplasm of upper-inner quadrant of left breast in female, estrogen receptor negative (HCC)- Primary Malignant neoplasm of upper-inner quadrant of left breast in female, estrogen receptor negative (HCC) Malignant neoplasm of upper-inner quadrant of left breast in female, estrogen receptor negative (HCC) documented in this encounter Care Teams Silverware Buffer Relationship Specialty Start Date End Date Toby Bell MD [address] [place] [address] PCP - General Family Medicine 02/08/22 documented as of this encounter
--- OUTSIDE RECORDS SUMMARY | 2023-12-07 20:37 | External Medical Summary | Summary of Care ---
Author Name Unknown Organization [facility] Address [address] [place] [address] Phone [phone] Care Team Providers Care Intelligence Research Specialist Name Role Phone Toby Bell MD Primary Care Provider [phone]- [phone] Reason for Visit * Reason Onset Date Comments Order Request 09/19/2023 Breast BX Encounter Details Date Type Department Care Team (Late st Contact Info) Description 09/19/2023 Telephone [facility] [address] [place] [phone] Toby Bell MD [address] [place] [address] Order Request (Breast BX) Allergies [...] Encounter - Phyllis Colin [facility] - 09/23/2023 1:02 PM EDT Done. Patient aware of date and time. 09/23/2023 * Telephone Encounter - Phyllis Colin OSA [...] Description 10/03/2023 10:00 AM EDT Imaging Radiology [facility] [address] [facility] [place] [address] 10/03/2023 3:10 PM EDT Imaging Radiology [facility] 1st Floor, [place] [address] [facility] [place] [address] 10/11/2023 1:00 PM EDT [facility] [place] [address] [address] [facility] [phone] Toby Bell MD [address] [facility] [place] [address] 03/16/2024 2:40 PM EDT Office [facility] [place] [address] [facility] [phone] Toby Bell MD [address] [facility] [place] [place] [address] Scheduled Orders Name Type Priority Associated Diagnoses Orde r Schedule US GUIDED BREAST BIOPSY LEFT Medical Imaging Routine Abnormal ultrasound of breast Expected: 09/20/2023, Expires: 10/18/2024 Health Maintenance Due Date Last Done Comments DXA Scan 1940 Depression Screening 1951 Albumin/Creatinine Ratio 09/16/1957 Diabetic Foot Exam 09/16/1957 Zoster Vaccines (1 of 2) 09/16/1989 COVID-19 Vaccine (3 - season) 2023 09/16/2020, [...] breast documented in this encounter Care Teams Intelligence Research Specialist Relationship Specialty Start Date End Date Toby Bell MD [address] [place] [address] PCP - General Family Medicine 02/08/22 documented as of this encounter
--- OUTSIDE RECORDS SUMMARY | 2023-12-07 20:37 | External Medical Summary | Summary of Care ---
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, without long-term current use of insulin, unspecified laterality, unspecified retinopathy severity (HCC)*; Mass of upper outer quadrant of left breast; HTN, goal below 140/90; Dyslipidemia; Exudative age-related macular degeneration, bilateral, with active choroidal neovascularization (HCC); Hearing loss of left ear, unspecified hearing loss type Allergies Active Allergy Reactions Criticality Noted Date Comments Guaifenesin & Derivatives 10/11/2000 Daily--hives Lisinopril Edema face/lips/tongue High 08/05/2021 documented as of this encounter (statuses as of 08/29/2023) Medications Medication Sig Dispensed Refills Start Date [...] the morning. 90 Tablet 3 12/14/2022 Active Chlorthalidone 25 MG Oral Tablet (Hygroton) TAKE 1 TABLET BY MOUTH EVERY DAY IN THE MORNING 90 Tablet 3 12/14/2022 4 Discontinue d(Medicatio n List Clean Up) documented as of this encounter (statuses as of 08/29/2023) Active Problems Problem Noted Date Diagnosed Date Exudative age-related macula r degeneration, bilateral, with active choroidal neovascularization 02/08/2022 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 02/08/2022 Gastro-esophageal reflux disease without esophag itis 02/08/2022 Dyslipidemia 02/08/2022 HTN, goal below 140/90 02/08/2022 Varicose vein of leg 01/08/2003 Macular degeneration 08/31/2002 CARDIAC MURMURS NEC documented as of this encounter (statuses as of 08/29/2023) Immunizations Name Administration Dates Next Due COVID-19 mRNA, LNP-s, No Pre serve, 2-Dose Series (Moderna) 09/16/2020 Pneumococcal Conjugate Vacc, 13 Valent (Prevnar) 03/15/2016 Pneumococcal Polysaccharide PPV23 (Pneumovax) Seasonal Influenza, Quadrivalent Hd (Fluzone Hd) 03/04/2023,02/08/2022 TDAP (age 11 and older)(Adacel) 07/10/2016,08/12 documented as of this encounter Social History Tobacco Use Types Packs/Day Years Used Date Smoking Tobacco: Never Smokeless Tobacco: Never Tobacco Cessation:Counseling Given: [...] Sign Reading Time Taken Comments Blood Pressure 142/82 08/16/2023 5:26 PM EDT Pulse 76 08/16/2023 5:26 PM EDT Temperature 36.2 C (97.1 F) 08/16/2023 5:26 PM ED T Respiratory Rate 18 08/16/2023 5:26 PM EDT Oxygen Saturation 96% 08/16/2023 5:26 PM EDT Inhaled Oxygen Concentration - - Weight 62.7 kg (138 lb 3.2 oz) 08/16/2023 5:26 P M EDT Height 162.6 cm (5' 4") 08/16/2023 5:26 PM EDT Body Mass Index 23.72 08/16/2023 5:26 PM EDT documented in this encounter Progress Notes * Toby Bell MD - 08/16/2023 5:37 PM EDT Subjective: Humaira Stack is a 82 year old female here today for Chief Complaint Patient presents with Status Check Return in 6 months Left ear - decreased hearing. Drainage - bad taste Lump left breast - fell last October - lump since Left shoulder pain. Left Knee giving out, - swelling in left leg - better overnight Hip arthritis/disc deterioration Injection last NOv in back some help No shortness of breath. Occasional dull chest pain. Right wrist pain Dizziness is better off the chlorthalidone HTN Past Medical History: Diagnosis Date Macular degeneration Undiagnosed cardiac murmurs Past Surgical History: Procedure Laterality Date CV STRESS (CARDIOLYTE) 07/06/99 Normal INFORMATION varicose veins stripped b/l INJECT DX/THER SUBSTANCE INTERLAMINAR LUMBAR/SACRAL W IMAGE GUIDE 04/22/2022 INJECTION SPINE LUMBAR OR SACRAL performed by Ad Villalba DO at OR [facility] MISCELLANEOUS ORDER removed bone palate in order to get dentures Review of patient's allergies indicates: Allergen Reactions Lisinopril Edema face/lips/tongue Guaifenesin & Derivatives Drelliot--hives Current Outpatient Medications Medication Sig Dispense Refill OCUVITE OR TABS 1 TABLET DAILY 30 0 KNEE BRACE [facility] open patella knee support. Dx: bilateral knee pain and prepatellar bursitis one pair 0 Losartan Potassium 50 MG Oral Tablet (Cozaar) Take 1.5 Tablets by mouth in the morning. 135 Tablet 3 Atorvastatin Calcium 40 MG Oral Tablet (Lipitor) Take 1 Tablet by mouth in the morning. 90 Tablet 3 No current facility-administered medications for this visit. Objective: BP 142/82 | Pulse 76 | Temp 36.2 C (97.1 F) (Temporal Artery) | Resp 18 | Ht 1.626 m(5' 4") | Wt 62.7 kg (138 lb 3.2 oz) | SpO2 96% | BMI 23.72 kg/m | BSA 1.68 m GEN: NAD HEENT: Benign NECK: Supple with no LAD, TM, JVD CHEST: CTA B CV: RRR ABD: Soft, NT/ND, No HSM, NABS With nurse tile mechanic present, breast exam of the left breast revealed a palpable lump in left upper, outer breast - smooth, mobile. No erythema, warmth. No skin changes. 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 HTN, goal below 140/90 Dyslipidemia Exudative age-related macular degeneration, bilateral, with active choroidal neovascularization (HCC) Hearing loss of left ear, unspecified hearing loss type -continue current treatments Follow Up: Return in about 6 months (around 02/16/2024) for recheck. | For: recheck | Check-out note: Diag mammo bilat and left u/s 34 min with pt and chart review. Toby Bell MD documented in this encounter Nursing Notes * Zuri Card LPN - 08/16/2023 5:26 PM EDT The patient has been properly identified by confirmation of name and date of . Chief Complaint Patient presents with Status Check Return in 6 months documented in this encounter Plan of Treatment Upcoming Encounters Date Type Department Care Team (Late st Contact Info) Description 09/16/2023 11:30 AM EDT Imaging Radiology [facility] [address] [facility] [place] [address] 09/16/2023 12:00 PM EDT Imaging Radiology [facility] [address] [facility] [place] [address] 03/16/2024 2:40 PM EDT Office Visit [facility] [address] [place] [address] Toby Bell MD [address] [place] [address] Scheduled Orders Name Type Priority Associated Diagnoses Orde r Schedule US BREAST LIMITED LEFT Medical Imaging Routine Mass of upper outer quadrant of left breast Expected: 08/16/2023, Expires: 09/15/2024 MAMMOGRAM SCREENING CARINA LEFT Medical Imaging Routine Mass of upper outer quadrant of left breast Expected: 08/16/2023, Expires: 09/15/2024 Health Maintenance Due Date Last Done Comments [...] as of this encounter Visit Diagnoses Diagnosis 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, without long-term current use of insulin, unspecified laterality, unspecified retinopathy severity (HCC)- Primary Mass of upper outer quadrant of left breast HTN, goal below 140/90 Unspecified essential hypertension Dyslipidemia Other and unspecified hyperlipidemia Exudative age-related macular degeneration, bilateral, with active choroidal neovascularization (HCC) Hearing loss of left ear, unspecified hearing loss type documented in this encounter Care Teams Photo Manager Relationship Specialty Start Date End Date Toby Bell MD [address] [place] [address] PCP - General Family Medicine 02/08/22 documented as of this encounter
--- OUTSIDE RECORDS SUMMARY | 2023-12-07 20:37 | External Medical Summary | Summary of Care ---
Author Name Unknown Organization [facility] Address [address] [place] [address] Phone [phone] Care Team Providers Care Extruding Department Supervisor Name Role Phone Toby Bell MD Primary Care Provider +1- [phone] Reason for Visit * Reason Onset Date Comments Appointment 10/13/2023 Encounter Details Date Type Department Care Team (Late st Contact Info) Description 10/13/2023 Telephone General Surgery, [facility] [address] [place] [address] Mariah Abdul MD [address] [place] [address] Appointment Allergies Active Allergy Reactions Criticality Noted [...] [facility], Operating Room [facility] [address] [place] [phone] Mariah Abdul MD [address] [place] [address] 11/02/2023 9:30 AM EDT Imaging [facility] 2nd Floor Cardiology, [place] [address] [place] [address] 11/02/2023 3:10 PM EDT Imaging Radiology [facility] [facility] [address] [place] [address] 11/17/2023 9:30 AM EDT Office Visit General Surgery, [facility] [address] [place] [address] Mariah Abdul MD [address] [place] [address] 03/16/2024 2:40 PM EDT Office Visit [facility] [address] [facility] [address] Toby Bell MD [address] [place] [address] 04/10/2024 10:30 AM EST [address] Radiology, [address] [address] Scheduled Procedures Name Priority Associated Diagnoses Date/Ti [...] filedocumented as of this encounter Care Teams Extruding Department Supervisor Relationship Specialty Start Date End Date Toby Bell MD [address] [place], [place] [phone] PCP - General Family Medicine 02/08/22 documented as of this encounter
--- OUTSIDE RECORDS SUMMARY | 2023-12-07 20:37 | External Medical Summary | Summary of Care ---
Author Name Unknown Organization [facility] Address [address] [place] [address] Phone [phone] Care Team Providers Care Design Verification Engineer Name Role Phone Toby Bell MD Primary Care Provider +1- [phone] Reason for Visit * Reason Onset Date Comments Appointment 05/12/2023 Encounter Details Date Type Department Care Team (Late st Contact Info) Description 05/12/[address] [facility] [address] [place] [address] Toby Bell MD [address] [place] [address] Appointment Allergies Active Allergy Reactions Criticality Noted Date Comments Guaifenesin & Derivatives 10/11/2000 Daily--hives Lisinopril Edema face/lips/tongue High 08/05/2021 documented as of this encounter (statuses as of 08/11/2023) Medications Medication Sig Dispensed Refills Start Date [...] the morning. 135 Tablet 3 12/14/2022 Active Chlorthalidone 25 MG Oral Tablet (Hygroton) TAKE 1 TABLET BY MOUTH EVERY DAY IN THE MORNING 90 Tablet 3 12/14/2022 Active Atorvastatin Calcium 40 MG Oral Tablet (Lipitor) Take 1 Tablet by mouth in the morning. 90 Tablet 3 12/14/2022 Active documented as of this encounter (statuses as of 08/11/2023) Active Problems Problem Noted Date Diagnosed Date Exudative age-related macula r degeneration, bilateral, with active choroidal neovascularization 02/08/2022 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 02/08/2022 Gastro-esophageal reflux disease without esophag itis 02/08/2022 Dyslipidemia 02/08/2022 HTN, goal below 140/90 02/08/2022 Varicose vein of leg 01/08/2003 Macular degeneration 08/31/2002 CARDIAC MURMURS NEC documented as of this encounter (statuses as of 08/11/2023) Immunizations Name Administration Dates Next Due COVID-19 [...] encounter Miscellaneous Notes * Telephone Encounter - Cherelle Rivas CPhT - 05/12/2023 11:54 AM EST Pt calling to reschedule appt, Transfer Pt to scheduling . Thank you, Cherelle Rivas CPhT Sand [facility] (Former[facility]) 05/12/2023,11:55 AM documented in this encounter Plan of Treatment Upcoming Encounters Date Type Department Care Team (Late st Contact Info) Description 08/16/2023 5:40 PM EDT Office Visit [facility] [address] [place] [phone] Toby Bell MD [address] [facility] [place] [address] Health Maintenance Due Date Last Done Comments [...] as of this encounter Care Teams Design Verification Engineer Relationship Specialty Start Date End Date Toby Bell MD [address] [place] [address] PCP - General Family Medicine 02/08/22 documented as of this encounter
--- OUTSIDE RECORDS SUMMARY | 2023-12-07 20:37 | External Medical Summary | Summary of Care ---
Author Name Unknown Organization [facility] Address [address] [place] [address] Phone [phone] Care Team Providers Care Senior Courtroom Clerk Name Role Phone Toby Bell MD Primary Care Provider +1- [phone] Reason for Visit * Reason Onset Date Comments Order Request 09/19/2023 Breast BX Encounter Details Date Type Department Care Team (Late st Contact Info) Description 09/19/2023 Telephone [facility] [address] [place] [address] Toby Bell MD [address] [place] [address] Order Request (Breast BX) Allergies [...] Description 10/03/2023 10:00 AM EDT Imaging Radiology [address] [place] [address] 10/03/2023 3:10 PM EDT Imaging Radiology [address] [place] [address] 03/16/2024 2:40 PM EDT [address] [phone] Toby Bell MD [address] [place] [address] Scheduled Orders Name Type Priority Associated Diagnoses [...] breast documented in this encounter Care Teams Senior Courtroom Clerk Relationship Specialty Start Date End Date Toby Bell MD [address] [place] [address] PCP - General Family Medicine 02/08/22 documented as of this encounter
[2023-12-07] MEDS ORDERED: MELATONIN 3 MG TAB PO PRN (21:00)
[2023-12-07] MEDS: LOPERAMIDE HCL 2 MG CAP PO STA (22:24)
[2023-12-07] MEDS: ACETAMINOPHEN 325 MG TAB PO PRN (22:24)
[2023-12-08 06:25] LABS: Albumin Globulin Ratio 1.3 (0.9-2); Albumin Level 2.6 gm/dl (3.4-5.0); BUN Creatinine Ratio 25.3 (10-20); Bilirubin,Total 0.4 mg/dl (0.2-1.0); Calcium 6.7 mg/dl (8.6-10.3); Creatinine Clr Calc Pharmacy 45.8 ml/min; Est GFR (African American) 79.7 ml/min; Est GFR (Non-African American) 68.7 ml/min; Magnesium 1.9 mg/dl (1.7-2.4); Potassium 3.9 mmol/L (3.5-5.1); Total Protein 4.6 gm/dl (6.0-8.3)
[2023-12-08 06:50] LABS: Troponin I High Sensitivity 24.4 pg/ml (0-14)
--- OUTSIDE RECORDS SUMMARY | 2023-12-08 07:08 | External Medical Summary | Summary of Care ---
Author Name Unknown Organization [facility] Address [address] [place] [address] Phone [phone] Care Team Providers Care School Transportation Supervisor Name Role Phone Michelle Bell MD Primary Care Provider +1- [phone] Reason for Visit * Reason Onset Date Comments Advice 12/07/2023 Suzanne Encounter Details Date Type Department Care Team (Late st Contact Info) Description 12/07/2023 Telephone Hematology/Oncology [facility] [address] [facility] [address] Services, Scheduling [address] [place] [address] Advice (Suzanne ) Allergies Active Allergy Reactions Criticality Noted Date Comments Guaifenesin & Derivatives 10/11/2000 Daily--hives Lisinopril Edema face/lips/tongue High 08/05/2021 documented as of this encounter (statuses as of 12/07/2023) Medications Medication Sig Dispensed Refills Start Date [...] as of this encounter (statuses as of 12/07/2023) Active Problems Problem Noted Date Diagnosed Date [...] as of this encounter (statuses as of 12/07/2023) Immunizations Name Administration Dates Next Due COVID-19 [...] Telephone Encounter - Marielos Mondragon RN - 12/07/2023 9:33 AM EDT Spoke to Michelle. Patient is currently receiving keytruda/ carbo/ taxol--> keytruda/ AC. Yesterday received C2D8 carbo/ taxol. He states that patient was feeling fine prior to treatment, no significant concerns. Michelle states that patient has tolerated treatment well up until now. He woke up about 15 minutes ago and could smell poop. He went into her room and found her in bed covered in feces with a trail of poop on the floor from the bed to the bathroom. She told him that she couldn't get out of bed in time. He states that she is telling him that she cannot get up right now because she is too tired from trying to clean the floor before he came in. He states that this is very unlike her and he is "freaking out" because he doesn't know what to do to help her. Had him ask patient to sit up while we are on the phone to see if she is able to move herself/ assist in cleaning herself up- she declined and states that she does not want to. He also notes that patient complained of feeling cold yesterday after treatment. They do not have athermometer so he does not know if she has a fever or feels warm. Advised him to call EMS to bring patient to ED for assessment. He verbalized understanding and agreement. Followed up with Michelle 15 minutes later to check on him as he had been very anxious on the phone. Michelle confirmed that he called EMS and is feeling a lot better now that he knows that she will be going to the emergency dept. Reviewed precautions that he should take when handling patients body fluids/ soiled linens. He verbalized appreciation for return call. Called [facility] ED and spoke to Sherly to let them know patient is coming. * Telephone Encounter - An Spann [place] - 12/07/2023 9:22 AM EDT lizzie i have michelle pt jeny newton she has a treatment yesterday and today she woke up with diarrhea and is also really really tired and also cold? is any one available to speak with him is isn't sure what to do and also has an upset stomach He is also stating that yesterday it took her a while to get warm Please give him a return call Thank you documented in this encounter Plan of Treatment Upcoming Encounters Date Type Department Care Team (Late st Contact Info) Description 12/12/2023 10:00 AM EDT Laboratory Laboratory [facility] [place] [address] [place] [phone] Christina Lab Scenery [address] [facility] [place] [address] 12/12/2023 11:00 AM EDT Hem/Onc Treatment Hematology/Oncology Treatment, [address] [place] [phone] Christina, Chair 6 Hem Onc Scenery [address] [place] [address] [address] 12/20/2023 8:00 AM EDT Laboratory Laboratory [place] [address] [address] Christina, Lab [place] [address] [place] [address] 12/20/2023 9:00 AM EDT Hem/Onc Treatment Hematology/Oncology Treatment, [place] [address] [facility] [place] [address] Christina, Chair 6 Hem Onc Scenery [address] [place] [address] 12/27/2023 9:10 AM EDT Laboratory Laboratory [facility] [address] [place] [address] Christina, Lab Scenery [address] [place] [address] 12/27/2023 10:15 AM EDT [facility] [address] [place] [address] Christina, Chair 8 Hem Onc Scenery [address] [place] [address] 01/03/2024 8:00 AM EDT Laboratory Laboratory [facility] [address] [place] [address] Christina, Lab Scenery [address] [place] [address] 01/03/2024 9:00 AM EDT [facility] [address] [place] [address] Christina, Chair 6 Hem Onc Scenery [address] [place] [address] 01/10/2024 8:30 AM EDT Laboratory Laboratory [facility] [address] [place] [address] Christina, Lab Scenery [address] [place] [address] 01/10/2024 9:00 AM EDT Office Visit Hematology/Oncology [facility] [address] [place], [place] [address] Alissa Roldan CRNP [address] [place], [place] [address] [address] 01/10/2024 9:30 AM EDT Hem/Onc Treatment Hematology/Oncology Treatment, [place] [address] [place], [place] [address] Christina, Chair 9 Hem Onc Scenery [address] [place] [address] 01/31/2024 9:00 AM EDT Office Visit Hematology/Oncology [facility] [place] [address] [place] [address] Nas Palacios MD [address] [place] [address] 02/03/2024 10:30 AM EDT Telemedicine Genetics HemOnc, [facility] [place] [place] [address] [place] [address] [place], [place] [address] [place] [address] 03/16/2024 2:40 PM EDT Office Visit [facility] [address] [place] [address] Michelle Bell MD [address] [place] [address] 04/10/2024 10:30 AM EST Imaging Radiology, [address] [place], [place] [address] Health Maintenance Due Date Last Done Comments [...] this encounter Medical Devices Implanted Type Area Information Systems Security Analyst Device Identifier Shelf Expiration Date Model / Serial / Lot Port Power Mri [id number] Cath - [id number] Implanted:Qty: 1 on 11/02/2023 by Mariah Abdul MD at OR [facility] Right: Chest CR BARD : PERIPHERAL VASCULAR 08/20/2024 [id number] / / [id number] documented as of this encounter Advance Directives * Full Code (Latest Code Status on File) Date Activated Date Inactivated Comments 11/02/2023 11:37 AM 11/02/2023 6:38 PM This order reflects the patients wishes and were consensually agreed upon. Question Answer Comments Discussion of Advance Directives occurred with: Patient Care Teams School Transportation Supervisor Relationship Specialty Start Date End Date Michelle Bell MD [address] [place] [address] PCP - General Family Medicine 02/08/22 documented as of this encounter
[2023-12-08 07:09] LABS: Estimated Average Glucose 160 mg/dl; Hemoglobin A1C 7.2 % (4.5-5.6)
[2023-12-08 07:10] LABS: Hematocrit (blood only) 27.6 % (37.0-47.0); Hemoglobin 9.2 g/dl (12.0-16.0); Mean Corpuscular Hemoglobin 31.1 pg (25.0-34.0); Mean Corpuscular Hgb Conc 33.3 g/dL (32.0-36.0); Mean Corpuscular Volume 93.2 fL (80.0-100.0); Platelet Count 111 K/uL (130-400); RDW Coefficient of Variation 15.1 % (11.5-14.5); RDW Standard Deviation 50.2 fL (36.4-46.3); Red Blood Count 2.96 M/uL (4.20-5.40)
[2023-12-08 07:15] LABS: Basophils # (auto) 0.01 K/uL (0.00-0.20); Basophils % (auto) 0.5 %; Immature Granulocytes # (auto) 0.01 K/uL (0.01-0.20); Immature Granulocytes % (auto) 0.5 %; Lymphocytes # (auto) 0.32 K/uL (1.20-3.40); Lymphocytes % (auto) 16.8 %; Monocytes # (auto) 0.12 K/uL (0.11-0.59); Monocytes % (auto) 6.3 %; Neutrophils # (auto) 1.44 K/uL (1.40-6.50); Neutrophils % (auto) 75.9 %
--- NOTE | 2023-12-08 08:11 | Pharmacy Report ---
Pharmacy PK ABX Note - Date of Service December 08, 2023 - Assessment and Plan Assessment 83 year old F started on vancomycin and zosyn empirically. PMHx significant for breast cancer/chemotherapy with last treatment 12/05. Presenting with lethargy/fever, poor oral intake x 2 weeks. Blood cultures pending. Plan Vancomycin * Loading dose: 1500 mg IV x 1 * Maintenance dose: 1250 mg IV every 24 hours * Regimen is predicted to achieve target AUC/SADIA of 400-600 mg/L.hr * Random level to be ordered if plan is to continue for > 48 hours Pharmacy will continue to follow and will adjust dose/frequency as necessary. Thank you. Pharmacy has transitioned to AUC monitoring for vancomycin. AUC/SADIA is the preferred PK/PD target and is associated with decreased risk of nephrotoxicity compared to traditional trough targets.
[2023-12-08] MEDS: ADVANCED PROBIOTIC 625 MG CAPSULE PO SCH (08:13)
[2023-12-08] MEDS: FAMOTIDINE 20 MG TAB PO PRN (08:14)
[2023-12-08] MEDS ORDERED: NON-FORMULARY MEDICATION (Vitamin A-Vitamin C-Vit E-Min Tablet) PO SCH (09:00)
[2023-12-08] MEDS: VANCOMYCIN HCL 1,250 MG in SODIUM CHLORIDE 0.9% 250 ML IV SCH (10:43)
[2023-12-08 15:23] LABS: Appearance Urine Clear (Clear); Bacteria Urine Automated None Seen (None Seen); Bilirubin Urine Negative (Negative); Blood Urine Negative (Negative); Color Urine Yellow; Epithelial Cell Urine Auto 0-2 /hpf (0-2); Glucose Urine UA Negative (Negative); Ketones Urine Negative (Negative); Leukocyte Esterase Urine Trace (Negative); Nitrite Urine Negative (Negative); Protein Urine Negative (Negative); RBC Urine Automated 0-2 /hpf (0-2); Specific Gravity Urine 1.012 (1.000-1.030); Urobilinogen Urine Negative (Negative)
--- NOTE | 2023-12-08 15:33 | Hospitalist Progress Note ---
Date of Service December 08, 2023 Assessment & Plan (1) Hypomagnesemia: (2) Immunocompromised: (3) Fever: Plan This is an 83-year-old female who has significant past medical history of left breast cancer (Invasive mammary carcinoma grade 3), HTN, HLD, macular degeneration, T2DM presents to ED secondary to fever, fatigue and weakness x 1 day. Generalized weakness Fever Diarrhea Leukopenia Hypotension Possible sepsis Likely secondary to chemotherapy Rule out infection Procalcitonin 1.37 stool PCR neg -BioFire negative -CXR:No acute abnormalities and in particular no radiographic evidence of pneumonia. -- Blood cultures - no growth till date Continue on broad-spectrum antibiotics with vancomycin, Zosyn will follow up on final culture Syncope Unwitnessed Likely secondary to hypotension CT headno acute finding Monitor for any arrhythmias Orthostatic vital check Mild troponin elevation Likely demand ischemia secondary to hypotension EKG shows normal sinus rhythm with nonspecific ST and T wave changes Patient denies any chest pain, dyspnea Hypomagnesemia Monitor and replete electrolytes as needed Oral thrush Started on nystatin Hypertension Hypotensive currently Hold losartan Monitor Hyperlipidemia Hold Lipitor as recommended by Oncology given chemotherapy a day prior to admission Left breast cancer (Invasive mammary carcinoma grade 3) Currently on chemotherapy Follows with oncology Dr. Palacios as outpatient DVT Px: Lovenox SQ CODE STATUS Full code Time spent evaluating patient, direct bedside care, chart review, placing orders, interpretation of diagnostic studies, discussion with consultants, patient, and family members, as well as other required patient management activities is 50 minutes Please note the above document was generated using voice recognition software. It may contain grammatical, syntax or spelling errors. Any formal questions or concerns about the content, text or information contained within the body of this dictation should be directly addressed to the provider for clarification Admission and Anticipated Discharge Date Admission Date: December 07, 2023 Subjective Patient seen and examined at bedside. She reports that she is feeling much better compared to yesterday She reports that her weakness has improved. She reports 1 episode of diarrhea in the morning; no blood or mucus seen. Review of Systems Review of Systems: All systems reviewed & are unremarkable except as noted in Subjective Physical Exam Physical Exam: Constitutional: Alert oriented x 3; not in distress. Respiratory: normal respiratory effort, lungs clear to auscultation, no wheeze, rales, rhonchi. Normal insp/exp effort, no accessory muscle use Cardiovascular: RRR, no murmur, no edema Vessels: no JVD or carotid bruit Chest: normal inspection of chest Abdomen: normal bowel sounds, soft, nontender, no hepatosplenomegaly Musculoskeletal: no cyanosis or clubbing, extremities motor strength 5/5 Skin: no rashes, warm and dry normal turgor Neurologic: PERRL, EOMI, accommodation nl, no face palsy, no dysarthria CN's II- XI intact bilaterally and moves all extremities Psychiatric: A+Ox3, euthymic affect Results & Data Results & Data Vital Signs (Past 12 Hours) Vital Signs Temp Pulse Pulse Resp BP Pulse Ox O2 Del Method 12/08/23 14:47 82 12/08/23 12:32 37.2 C 75 18 106/56 L 97 Room Air 12/08/23 07:53 75 12/08/23 07:38 37.4 C 83 18 121/53 L 95 Room Air 12/08/23 04:18 36.9 C 77 18 102/52 L 94 Room Air 12/08/23 03:50 37.1 C 76 18 108/60 96 Room Air
--- NOTE | 2023-12-09 16:35 | Electroencephalogram ---
EEG Procedure Note Date of Service December 08, 2023 Start / End Times Start Time: :02 End Time: 09:[address] Armani Moe History A 83 year old female with syncope. EEG performed for evaluation of epileptiform activity. Home Medication List Medication Instructions Recorded Confirmed Type atorvastatin 40 mg tablet 40 mg PO DAILY 12/07/23 12/07/23 History lidocaine-prilocaine 2.5 %-2.5 % 1 applic topical UD 12/07/23 12/07/23 History topical cream losartan 50 mg tablet 75 mg PO DAILY 12/07/23 12/07/23 History ondansetron HCl 8 mg tablet 8 mg PO Q8 PRN Nausea And Vomiting 12/07/23 12/07/23 History vitamin A-vitamin C-vit E-min 1 tab PO DAILY 12/07/23 12/07/23 History tablet Inpatient Medication List Acetaminophen (Acetaminophen 325 Mg Tab) 650 mg PO Q4H PRN PRN Reason: Pain or Fever Stop: 01/06/24 16:30 Last Admin: 12/08/23 15:48 Dose: 650 mg Documented By: Admin: 12/07/23 22:24 Dose: 650 mg Documented By: SONALI Enoxaparin Sodium (Enoxaparin Inj 40 Mg/0.4 Ml Syr) 40 mg SQ Q24H MURPHY Stop: 01/06/24 21:59 Last Admin: 12/08/23 20:16 Dose: Not Given Documented By: Admin: 12/07/23 19:24 Dose: 40 mg Documented By: SONALI Famotidine (Famotidine 20 Mg Tab) 20 mg PO DAILY PRN PRN Reason: Heartburn Stop: 01/06/24 16:30 Last Admin: 12/08/23 08:14 Dose: 20 mg Documented By: BALA Piperacillin Sod/Tazobactam (Sod 4.5 gm/ Dextrose) 100 mls @ 25 mls/hr IV Q8H MURPHY; Protocol Stop: 12/14/23 21:59 Last Admin: 12/09/23 15:46 Dose: Not Given Documented By: Admin: 12/09/23 15:46 Dose: Not Given Documented By: Infusion: 12/09/23 00:24 Dose: Infused Documented By: Admin: 12/08/23 20:14 Dose: 25 mls/hr Documented By: Infusion: 07/18/24 18:03 Dose: Infused Documented By: Admin: 12/08/23 13:34 Dose: 25 mls/hr Documented By: Infusion: 12/08/23 10:19 Dose: Infused Documented By: Admin: 12/08/23 04:18 Dose: 25 mls/hr Documented By: Infusion: 12/08/23 00:00 Dose: Infused Documented By: Admin: 12/07/23 19:24 Dose: 25 mls/hr Documented By: SONALI Lactobacillus Acidophilus (Advanced Probiotic 625 Mg Capsule) 1,250 mg PO DAILY MURPHY Stop: 01/07/24 08:59 Last Admin: 12/09/23 15:46 Dose: Not Given Documented By: Admin: 12/08/23 08:13 Dose: 1,250 mg Documented By: BALA Nystatin (Nystatin Susp 500,000 U/5 Ml Udc) 5 ml PO QID MURPHY Stop: 12/17/23 16:59 Last Admin: 12/09/23 16:16 Dose: 5 ml Documented By: Admin: 12/09/23 15:46 Dose: Not Given Documented By: Admin: 12/09/23 15:46 Dose: Not Given Documented By: Admin: 12/08/23 20:13 Dose: 5 ml Documented By: Admin: 12/08/23 16:21 Dose: 5 ml Documented By: Admin: 12/08/23 13:34 Dose: 5 ml Documented By: Admin: 12/08/23 08:14 Dose: 5 ml Documented By: Admin: 12/07/23 19:24 Dose: 5 ml Documented By: Admin: 12/07/23 18:05 Dose: 5 ml Documented By: ADAMK Discontinued Medications Sodium Chloride (Nss) 1,000 mls @ 999 mls/hr IV .Q1H1M UMRPHY Stop: 12/07/23 13:15 Last Infusion: 12/07/23 13:43 Dose: Infused Documented By: Admin: 12/07/23 12:41 Dose: 999 mls/hr Documented By: Infusion: 12/07/23 12:34 Dose: Infused Documented By: Admin: 12/07/23 11:33 Dose: 999 mls/hr Documented By: GERRI Acetaminophen (Ofirmev) 1,000 mg in 100 mls @ 400 mls/hr IV NOW STA Stop: 12/07/23 11:31 Last Infusion: 12/07/23 12:00 Dose: Infused Documented By: Admin: 12/07/23 11:34 Dose: 400 mls/hr Documented By: GERRI Ceftriaxone Sodium (Rocephin) 2,000 mg in 50 mls @ 100 mls/hr IV NOW STA Stop: 12/07/23 12:18 Last Infusion: 12/07/23 12:35 Dose: Infused Documented By: Admin: 12/07/23 11:57 Dose: 100 mls/hr Documented By: GERRI Vancomycin HCl 1,500 mg/ (Sodium Chloride) 530 mls @ 200 mls/hr IV NOW ONE Stop: 12/07/23 14:53 Last Infusion: 12/07/23 15:58 Dose: Infused Documented By: Admin: 12/07/23 12:40 Dose: 200 mls/hr Documented By: GERRI Magnesium Sulfate/Dextrose (Magnesium Sulfate / D5w) 1 gm in 100 mls @ 100 mls/hr IV NOW STA Stop: 12/07/23 14:32 Last Infusion: 12/07/23 14:47 Dose: Infused Documented By: Admin: 12/07/23 13:41 Dose: 100 mls/hr Documented By: GERRI Magnesium Sulfate/Dextrose (Magnesium Sulfate / D5w) 1 gm in 100 mls @ 50 mls/hr IV Q2H MURPHY Stop: 12/07/23 19:29 Last Infusion: 12/07/23 21:02 Dose: Infused Documented By: Admin: 12/07/23 17:22 Dose: 50 mls/hr Documented By: Infusion: 12/07/23 16:51 Dose: Infused Documented By: Admin: 12/07/23 14:47 Dose: 50 mls/hr Documented By: GERRI Sodium Chloride (Nss) 500 mls @ 999 mls/hr IV .Q31M ONE Stop: 12/07/23 15:16 Last Infusion: 12/07/23 16:51 Dose: Infused Documented By: Admin: 12/07/23 15:58 Dose: 999 mls/hr Documented By: GERRI Calcium Gluconate () 1,000 mg in 60 mls @ 240 mls/hr IV NOW STA Stop: 12/07/23 16:25 Last Infusion: 12/07/23 21:02 Dose: Infused Documented By: Admin: 12/07/23 19:23 Dose: 240 mls/hr Documented By: SONALI Potassium Chloride/Sodium Chloride (Normal Saline W/20 Meq Kcl) 20 meq in 1,000 mls @ 125 mls/hr IV .Q8H MURPHY; Protocol Stop: 12/08/23 09:14 Last Infusion: 12/08/23 10:19 Dose: Infused Documented By: Admin: 12/08/23 01:44 Dose: 125 mls/hr Documented By: Infusion: 12/08/23 01:43 Dose: Infused Documented By: Admin: 12/07/23 17:19 Dose: 125 mls/hr Documented By: MEÑO Piperacillin Sod/Tazobactam (Sod 4.5 gm/ Dextrose) 100 mls @ 200 mls/hr IV ONE ONE; Protocol Stop: 12/07/23 17:29 Last Infusion: 12/07/23 18:34 Dose: Infused Documented By: Admin: 12/07/23 17:59 Dose: 200 mls/hr Documented By: MEÑO Vancomycin HCl 1,250 mg/ (Sodium Chloride) 275 mls @ 200 mls/hr IV Q24H [facility] Stop: 12/10/23 09:59 Last Admin: 12/09/23 15:50 Dose: Not Given Documented By: Infusion: 12/08/23 12:35 Dose: Infused Documented By: Admin: 12/08/23 10:43 Dose: 200 mls/hr Documented By: BALA Ketorolac Tromethamine (Ketorolac Tromethamine 15 Mg/Ml Vial) 15 mg IV NOW ONE Stop: 12/07/23 12:54 Last Admin: 12/07/23 13:19 Dose: 15 mg Documented By: GERRI Loperamide HCl (Loperamide Hcl 2 Mg Cap) 2 mg PO NOW STA Stop: 12/07/23 22:09 Last Admin: 12/07/23 22:24 Dose: 2 mg Documented By: SONALI Description This is a 21 electrode EEG with a single channel dedicated to limited EKG. The electrodes were placed in accordance with the International 10-20 system. REPORT: At the onset of the EEG, the patient is awake. The background activity consist of 9-10 Hz, persistent, posteriorly dominant, moderate amplitude, symmetric and rhythmic activity that is reactive to eye opening. Anteriorly, it consist of a mixture of low voltage indeterminate activity and 15-25 Hz, persistent, low amplitude, symmetric and rhythmic activity. Stepwise intermittent photic stimulation (1-21 Hz) and hyperventilation (3 minutes, good effort) do not induce any abnormalities. Drowsiness is characterized by low amplitude mixed frequency activity, roving eye movements, and decreased eye blinking and muscle artifact. Interpretation IMPRESSION: This is a normal awake and drowsy EEG. There is no evidence of focal slowing or epileptiform activity.
[2023-12-10 06:22] LABS: Hematocrit (blood only) 29.2 % (37.0-47.0); Mean Corpuscular Hemoglobin 31.5 pg (25.0-34.0); Mean Corpuscular Hgb Conc 34.2 g/dL (32.0-36.0); Mean Corpuscular Volume 92.1 fL (80.0-100.0); Platelet Count 103 K/uL (130-400); RDW Coefficient of Variation 14.7 % (11.5-14.5); RDW Standard Deviation 48.9 fL (36.4-46.3); Red Blood Count 3.17 M/uL (4.20-5.40); White Blood Count 1.23 K/ul (4.8-10.8)
[2023-12-10 07:07] LABS: Basophils # (auto) 0.01 K/uL (0.00-0.20); Basophils % (auto) 0.8 %; Eosinophils # (auto) 0.01 K/uL (0.00-0.50); Eosinophils % (auto) 0.8 %; Lymphocytes # (auto) 0.64 K/uL (1.20-3.40); Monocytes % (auto) 8.1 %; Neutrophils # (auto) 0.47 K/uL (1.40-6.50); Neutrophils % (auto) 38.3 %
[2023-12-10] MEDS: LOPERAMIDE HCL 2 MG CAP PO PRN (08:21)
[2023-12-10 10:30] LABS: Albumin Level 3.1 gm/dl (3.4-5.0); Bilirubin,Total 0.5 mg/dl (0.2-1.0); Calcium 8.1 mg/dl (8.6-10.3)
[2023-12-10 10:36] LABS: Albumin Globulin Ratio 1.4 (0.9-2); BUN Creatinine Ratio 15.3 (10-20); Creatinine Clr Calc Pharmacy 61.3 ml/min; Est GFR (African American) 97.5 ml/min; Est GFR (Non-African American) 84.2 ml/min; Globulin 2.2 gm/dl (2.5-4.0); Total Protein 5.3 gm/dl (6.0-8.3)
[2023-12-10] MEDS ORDERED: HEPARIN 100 UNIT/ML 5ML FLUSH FLUSH PRN (13:07)
--- NOTE | 2023-12-10 14:09 | Discharge Summary ---
Date of Service December 10, 2023 Admission HPI Per Admitting Provider This is an 83-year-old female who has significant past medical history of left breast cancer (Invasive mammary carcinoma grade 3), HTN, HLD, macular degeneration, T2DM presents to ED secondary to fever, fatigue and weakness x 1 day. she is status post her fifth round of chemotherapy (carboplatin and taxol) with the next step to be a left lumpectomy and sentinel node biopsy under general anesthesia. She also was ordered pegfilgrastim. Her last treatment was yesterday on 12/06/2023. She had a mediport placed [address] Mariah Abdul on 11/02/23. History is obtained from both patient and patient's grandson at bedside. Patient states that she was doing well until yesterday. After the chemotherapy, patient felt very cold and had transient chills which resolved at bedtime. She was noted to be unconscious while in bed this morning by her grandson and had incontinence of stool. Patient's family informs that she had :explosive" diarrhea. On waking her up, patient was transiently lethargic as per family. She states feeling very tired today and had fever. No known seizure activity. Currently patient is oriented during encounter. Patient has tolerated chemotherapy well in the past with no issues as per patient/family. She was noted to have oral thrush by her chemo nurse yesterday. Reports intermittent dry cough which she attributes to dry mouth. She admits to have very poor oral intake/decreased appetite for about 2 weeks. Denies any history of chest pain, dyspnea, dizziness, wheezing, hemoptysis, fall, head trauma, headache, focal weakness, numbness, change in vision, slurred speech, facial deformity, nausea, vomiting, abdominal pain, blood in stools, weight loss, dysuria, hematuria. Admission Exam Per Admitting Provider General Appearance:Moderately built and nourished, no apparent distress Head: normocephalic, Atraumatic Eyes: normal inspection, EOMI Neck: supple, Trachea midline Respiratory/Chest: Normal breath sounds, CTA, +Chemo Port, No accessory muscle use Cardiovascular: S1, S2, No murmur Abdomen/GI:Soft, Non tender, Bowel sounds present Extremities/Musculoskeletal:normal inspection, no edema Neurologic/Psych:AAOX3, grossly no focal neurological deficits Skin: normal color, warm Principal Diagnosis Generalized weakness Chemotherapy-induced pancytopenia Discharge Exam Constitutional: Alert oriented x 3; not in distress. Respiratory: normal respiratory effort, lungs clear to auscultation, no wheeze, rales, rhonchi. Normal insp/exp effort, no accessory muscle use Cardiovascular: RRR, no murmur, no edema Vessels: no JVD or carotid bruit Chest: normal inspection of chest Abdomen: normal bowel sounds, soft, nontender, no hepatosplenomegaly Musculoskeletal: no cyanosis or clubbing, extremities motor strength 5/5 Skin: no rashes, warm and dry normal turgor Neurologic: PERRL, EOMI, accommodation nl, no face palsy, no dysarthria CN's II- XI intact bilaterally and moves all extremities Psychiatric: A+Ox3, euthymic affect Discharge Data Allergies Allergy/AdvReac Type Severity Reaction Status Date / Time lisinopril Allergy Severe Swelling Verified 01/20/21 09:32 of Lip/Tongue/Throat oxymetazoline Allergy Intermediate Hives Verified 01/20/21 09:32 [From Daily Tejeda] Consultations 12/07/23 13:31 ED Decision to Admit Stat Ordered Studies 12/07/23 14:43 CT head/brain wo con Urgent Hospital Course (1) Hypomagnesemia: (2) Immunocompromised: (3) Fever: Plan Patient was admitted to the medical floor and placed on empiric antibiotic; underwent infectious workup including chest x-ray, blood culture, stool PCR, BioFire which were negative. Electrolytes were repleted Patient also underwent workup for syncope including CT head and EEG which were negative. She was started on loperamide for chemotherapy induced diarrhea. Patient developed pancytopenia likely secondary to chemotherapy. Patient was afebrile for last 24 hours prior to discharge with no fever and chills. She was placed on empiric antibiotic with Augmentin and Cipro for 4 more days given pancytopenia/leukopenia. Patient to follow-up with her primary care doctor and oncology as outpatient. Please note the above document was generated using voice recognition software. It may contain grammatical, syntax or spelling errors. Any formal questions or concerns about the content, text or information contained within the body of this dictation should be directly addressed to the provider for clarification Total Time Total Time Spent Total Time Spent (In Minutes): 34 Total Time Includes: Examination of the Patient, Discharge Planning, Medication Reconciliation, Communication With Other Providers and Other Discharge Plan Discharge Items Patient Disposition: Home - Self-Care Reason For Visit: SEPSIS Discharge Diagnosis: Chemotherapy-induced pancytopenia Activity: Resume your previous activity Non-emergency contact: Primary Care Provider Call non-emergency contact if: you have any medication questions and your symptoms worsen Follow-up/Referrals: Toby Bell MD [Primary Care Provider] - (Date & Time 12/15/2023 11:20 AM Provider Toby Bell MD [facility] ) Diet: Regular Addtl Attending Provider Instructions: You were admitted to the hospital due to fever. You underwent workup for infection which was unrevealing. You are prescribed following medications as you are blood counts are low due to chemotherapy; 1) Augmentin 1 tablet twice a day for 4 days 2) Ciprofloxacin 1 tablet twice a day for 4 days You are also prescribed Imodium to be taken for diarrhea. Please hold off on taking Imodium if you develop constipation and go back to taking laxatives. Pending Studies at Discharge: No Stand-Alone Forms: My [facility] [place], Smoking Cessation Medications and DC Order Prescriptions: New loperamide 2 mg Capsule 2 mg PO Q6H PRN (Reason: loose stool) Qty: 20 0RF ciprofloxacin HCl 500 mg tablet 500 mg PO BID 4 Days Qty: 8 0RF amoxicillin-pot clavulanate 875-125 mg tablet 1 tab PO BID 4 Days Qty: 8 0RF Continued losartan 50 mg tablet 75 mg PO DAILY atorvastatin 40 mg tablet 40 mg PO DAILY ondansetron HCl 8 mg tablet 8 mg PO Q8 PRN (Reason: Nausea And Vomiting) lidocaine-prilocaine 2.5-2.5 % cream 1 applic topical UD Rx Instructions: Apply to skin over mediport and cover 1 hr prior to accessing vitamin A-vitamin C-vit E-min Tablet 1 tab PO DAILY Discharge Orders: Discharge Order (Routine); Ordered 12/10/23 Ordered By: Ashok Kwan/Other Patient Handouts: Type 2 Diabetes Admission Data Admit Date/Time: 12/07/23 13:40 Attending Provider: Ashok Dale Admit Provider: Sagar Moe Primary Care Provider: Toby Bell Other Providers: Sagar Moe Other Interventions: Discharge Summary Assessment (RN) Last Done: 12/10/23 12:46
--- NOTE | 2023-12-13 15:36 | Coding Query ---
CODING QUERY To promote full compliance with coding requirements relating to patient care, provider participation is requested in all cases of senior loss control specialist uncertainty. Please assist us with the question(s) below: Clinical Indicators: H&P: * Vitals: Temp - 37.8 C/Pulse 81/Resp - 20/BP - 96/44 and Pulse Ox - 92 * Possible sepsis * Procalcitonin - 1.37 * WBC - 3.64 Progress Note 12/07: * Stool PCR neg * BioFire negative * CXR:No acute abnormalities and in particular no radiographic evidence of pneumonia. * Blood cultures - no growth till date * Treated with vancomycin and Zosyn Discharge Summary: * Reason for Visit: SEPSIS * Discharge Diagnosis: Chemotherapy-induced pancytopenia Coding Question(s): Based on the above clinical indicators, can you clarify if sepsis was: ( ) Ruled in (X ) Ruled out ( ) Other: Please specify ( ) Unable to determine. Physician's Response(s): Thank you Unique Leggett Principal Diagnosis: "that condition established after study, to be chiefly responsible for occasioning the admission of the patient to the hospital for care." Co-Existing Principal Diagnosis: "when two or more diagnoses equally meet the criteria for principal diagnosis as determined by the circumstances of admission, diagnostic work up, and/or therapy provided, and the Alphabetic Index, Tabular List, or another coding guideline does not provide sequencing direction, any one of the diagnoses may be sequenced first." "When the physician has documented what appears to be a current diagnosis in the body of the record, but has not included the diagnosis in the final diagnostic statement, the physician should be asked whether the diagnosis should be added." (Source Coding [facility] 2 QTR90. p3-4) BRYAN
== END 2023-12-10 16:16 | disposition home or self-care (01) | DRG 809 ==
LOC: ED 10:46 → SUATTDRO 13:40 → 2N 13:40

== ENCOUNTER 2023-12-28 15:42 | Inpatient (IN) ==
--- NOTE | 2023-12-28 16:16 | XRay Report ---
XR chest 1V portable CLINICAL HISTORY: Sepsis TECHNIQUE: Single frontal radiograph of the chest was obtained. Comparison: Comparison is made to chest radiograph 12/03/2023 FINDINGS: A port catheter is seen. Calcified aortic knob is seen. The lungs are clear. No evidence of pleural e ffusion or pneumothorax. IMPRESSION: No acute abnormalities and in particular no radiographic evidence of pneumonia. ACT 112: Negative or not required by law. Electronically signed by: Maurice Amado M.D. 12/28/2023 4:15 PM
[2023-12-28 17:25] LABS: Basophils # (auto) 0.02 K/uL (0.00-0.20); Basophils % (auto) 0.4 %; Hematocrit (blood only) 33.2 % (37.0-47.0); Immature Granulocytes # (auto) 0.02 K/uL (0.01-0.20); Immature Granulocytes % (auto) 0.4 %; Lymphocytes # (auto) 0.23 K/uL (1.20-3.40); Lymphocytes % (auto) 5.1 %; Mean Corpuscular Hemoglobin 31.5 pg (25.0-34.0); Mean Corpuscular Hgb Conc 33.1 g/dL (32.0-36.0); Mean Corpuscular Volume 95.1 fL (80.0-100.0); Mean Platelet Volume 10.3 fL (9.4-12.4); Monocytes % (auto) 6.7 %; Neutrophils # (auto) 3.94 K/uL (1.40-6.50); Neutrophils % (auto) 87.4 %; Platelet Count 172 K/uL (130-400); RDW Coefficient of Variation 17.8 % (11.5-14.5); RDW Standard Deviation 61.2 fL (36.4-46.3); Red Blood Count 3.49 M/uL (4.20-5.40); White Blood Count 4.51 K/ul (4.8-10.8)
[2023-12-28] MEDS: SODIUM CHLORIDE 0.9% 1,000 ML IV SCH (17:32)
[2023-12-28 17:43] LABS: Albumin Level 3.4 gm/dl (3.4-5.0); BUN Creatinine Ratio 27.1 (10-20); Bilirubin Direct 0.1 mg/dl (0-0.2); Bilirubin,Total 0.6 mg/dl (0.2-1.0); Calcium 7.8 mg/dl (8.6-10.3); Creatinine Clr Calc Pharmacy 53.8 ml/min; Est GFR (African American) 92.2 ml/min; Est GFR (Non-African American) 79.6 ml/min; Magnesium 1.6 mg/dl (1.7-2.4); Potassium 3.9 mmol/L (3.5-5.1); Total Protein 5.8 gm/dl (6.0-8.3)
[2023-12-28 17:49] LABS: Troponin I High Sensitivity 14.7 pg/ml (0-14)
[2023-12-28 17:54] LABS: Partial Thromboplastin Ratio 0.9; Partial Thromboplastin Time 24 Seconds (21-31); Prothrombin Time 10.9 Seconds (9.0-12.0)
[2023-12-28 18:03] LABS: Appearance Urine Clear (Clear); Bacteria Urine Automated None Seen (None Seen); Bilirubin Urine Negative (Negative); Blood Urine Negative (Negative); Cast Urine Automated 0-2 /lpf (0-2); Color Urine Yellow; Glucose Urine UA Negative (Negative); Ketones Urine Trace (Negative); Leukocyte Esterase Urine Negative (Negative); Nitrite Urine Negative (Negative); Protein Urine 1+ (Negative); RBC Urine Automated 0-2 /hpf (0-2); Specific Gravity Urine 1.031 (1.000-1.030); Urobilinogen Urine Negative (Negative); WBC Urine Automated 0-5 /hpf (0-5); pH Urine 5.5 (4.5-7.5)
[2023-12-28 18:35] LABS: Adenovirus PCR Not Detected (NotDetected); Bordetella parapertussis PCR Not Detected (NotDetected); Bordetella pertussis PCR Not Detected (NotDetected); Chlamydia pneumoniae PCR Not Detected (NotDetected); Coronavirus 229E PCR Not Detected (NotDetected); Coronavirus CoV-2 (COVID19)PCR Not Detected (NotDetected); Coronavirus HKU1 PCR Not Detected (NotDetected); Coronavirus NL63 PCR Not Detected (NotDetected); Coronavirus OC43PCR Not Detected (NotDetected); Human Metapneumovirus PCR Not Detected (NotDetected); Influenza A PCR Not Detected (NotDetected); Influenza B PCR Not Detected (NotDetected); Mycoplasma pneumoniae PCR Not Detected (NotDetected); Parainfluenza Virus 1 PCR Not Detected (NotDetected); Parainfluenza Virus 2 PCR Not Detected (NotDetected); Parainfluenza Virus 3 PCR Not Detected (NotDetected); Parainfluenza Virus 4 PCR Not Detected (NotDetected); Respiratory Syncytial VirusPCR Not Detected (NotDetected); Rhinovirus/Enterovirus PCR Not Detected (NotDetected)
[2023-12-28] MEDS: CEFEPIME 2,000 MG/20 ML VIAL IV STA (18:49)
--- NOTE | 2023-12-28 18:50 | History & Physical Report ---
Date of Service December 28, 2023 Assessment & Plan (1) Fever: (2) Immunocompromised: Plan: This is an 83-year-old female who has significant past medical history of left breast cancer (Invasive mammary carcinoma grade 3), HTN, HLD, DM II, presents to ED secondary with c/o fever and chills today, temp 103F at home. Denies N/V/D, abdominal pain, CP, SOB, cough or urinary symptoms. History similar fever/chills after chemo in 11/2023 with unremarkable infectious workup at that time. S/P Chemo 12/27/23 In ER afebrile, vitals stable. WBC: 4.5, H/H: , Plt: 172. No neutropenia at this time. Normal lactate CXR: no acute infiltrate UA unremarkable In ER given 1L NSS, cefepime R/O Infection. Unclear source at this time Blood cultures pending. 1 set ordered and obtained peripherally. Will attempt for another set from port Continue cefepime If would develop diarrhea plan on stool studies ER physician spoke to commissioned security officer oncology who had recommended blood cultures and cefepime CBC in am (3) Hypomagnesemia: Plan: Magnesium: 1.6 Replace and monitor (4) Hypocalcemia: Plan: Ca: 7.8 In ER given calcium gluconate 1000mg IV BMP, TSH, parathyroid and vitamin D labs in am (5) Hyponatremia: Plan: Na: 131 In ER given 1L NSS Repeat BMP in am (6) Oral thrush: Plan: Nystatin (7) Hypertension: Plan: BP stable Continue losartan (8) Breast cancer in female: Plan: Left breast cancer (Invasive mammary carcinoma grade 3) Currently on chemotherapy. Last on 12/27/[address] Palacios as outpatient DVT Prophylaxis Lovenox SQ Admit med/tele Full Code as per discussion with pt Follows with Dr Bell for routine care Pt was seen and care coordinated with Dr Rhodes. See addendum I spent a total of 76 minutes reviewing notes, outpatient records, labs, medication, coordinating, documenting and providing care for this patient ex cluding time spent in the performance of separately billed services. History of Present Illness Chief Complaint: Fever Primary Care Provider: Toby Bell MD This is an 83-year-old female who has significant past medical history of left breast cancer (Invasive mammary carcinoma grade 3), HTN, HLD, DM II, presents to ED secondary with c/o fever and chills today. History obtained from patient, patient's family and inpatient and outpatient chart review. On chemotherapy (carboplatin and taxol) with the next step to be a left lumpectomy and sentinel node biopsy under general anesthesia. Chart reviewed and history of hospit alization 12/07/2023-12/10/2023 for fever, generalized weakness, chemotherapy- induced pancytopenia after receiving chemotherapy. During that hospitalization was initially placed on empiric antibiotics, negative infectious workup of blood cultures, CXR, stool PCR, respiratory bio fire, UA and was discharged on empiric antibiotics with Augmentin and Cipro. Was treated for oral thrush also. Was doing well at home. Had chemo yesterday, 12/27/23. States couldn't sleep last and was having some cramping of bilateral legs. Today feeling tired and having chills. Reports fever 103F at home. States been eating and drinking ok. Denies nausea, vomiting, or diarrhea recently since last admission. Denies CRAIN, dizziness, syncope, vision changes, neck pain, CP, SOB, palpitations, cough, sore throat, otalgia, rhinorrhea, abdominal pain, paresthesias, extremity edema, rashes, urinary symptoms. Allergies Allergy/AdvReac Type Severity Reaction Status Date / Time lisinopril Allergy Severe Swelling Verified 12/28/23 16:47 of Lip/Tongue/Throat oxymetazoline Allergy Intermediate Hives Verified 12/28/23 16:47 [From Daily [place]] Home Medications Medication Instructions Recorded Confirmed Type lidocaine-prilocaine 2.5 %-2.5 % 1 applic topical DIRECTED PRN 12/07/23 12/28/23 History topical cream PORT ACCESS losartan 50 mg tablet 75 mg PO DAILY 12/07/23 12/28/23 History ondansetron HCl 8 mg tablet 8 mg PO Q8 PRN Nausea And Vomiting 12/07/23 12/28/23 History loperamide 2 mg capsule 2 mg PO Q6H PRN loose stool #20 12/10/23 12/28/23 Rx caps dexamethasone 4 mg tablet 8 mg PO DIRECTED 12/28/23 12/28/23 History vit C 250 mg-vit E 90 mg-zinc 40 1 tab PO BID 12/28/23 12/28/23 History mg-copper 1 [id number] capsule (PreserVision AREDS-2) Past Med/Surg History Problem List (Updated 12/28/23 @ 19:42 by Marilou Locke PA-C) Breast cancer in female L breast dx September 2023 Oral thrush Hyponatremia Fever (Acute) Hypocalcemia (Acute) Elevated procalcitonin (Acute) Non-ST elevation [place] (NSTEMI) (Acute) Hypomagnesemia (Acute) Immunocompromised (Acute) Fever (Acute) Diabetes (Chronic) Hypertension (Chronic) Encounter for pre-operative examination Medical History Breast cancer in female L breast dx September 2023 Back problem "last vertebrae in back shifted to left" Hiatal hernia Pre-diabetes diet control Hypercholesteremia HTN (hypertension) Surgical History History of cataract surgery left History of endoscopy History of colonoscopy History of oral surgery BUMPS ON ROOF OF MOUTH REMOVED History of vein stripping 30 YR AGO Family History Grandmother Family history of diabetes mellitus Mother Family history of diabetes mellitus Brother Family history of diabetes mellitus Other Family history of MS (multiple sclerosis) Family history of throat cancer Social History Smoking Status: Never smoker Second Hand Exposure: No; Do You Dip or Chew Tobacco: No; Hx Alcohol Use: No Hx Substance Use: No Preferred Language: Hebrew Communication Ability: Effective Candy Cutter Machine Required: No Beliefs That Will Affect Care: None Current Living Situation: Family Feels Safe at Home: Yes Assistive Devices: Glasses Review of Systems Review of Systems: All systems reviewed & are unremarkable except as noted in HPI & below Physical Exam Physical Exam: PE per Dr Rhodes Results & Data Results & Data Vital Signs (Past 12 Hours) Vital Signs Temp Pulse Pulse Resp BP BP Pulse Ox 12/28/23 18:30 68 19 141/72 H 98 12/28/23 17:21 81 20 95 12/28/23 17:21 36.8 C 65 20 124/54 L 95 12/28/23 16:28 81 12/28/23 15:47 36.8 C 80 20 105/55 L 95 O2 Del Method 12/28/23 18:30 Room Air 12/28/23 17:21 Room Air 12/28/23 17:21 Room Air 12/28/23 16:28 12/28/23 15:47 Room Air Laboratory Results Short CBC 12/28/23 Range/Units 17:09 WBC 4.51 L (4.8-10.8) K/ul Hgb 11.0 L (12.0-16.0) g/dl Hct 33.2 L (37.0-47.0) % Plt Count 172 (130-400) K/uL BMP 12/28/23 17:09 Sodium 131 L Potassium 3.9 Chloride 100 Carbon Dioxide 24 BUN 19 Creatinine 0.70 Glucose 128 H Calcium 7.8 L Liver Function 12/28/23 Range/Units 17:09 Total Bilirubin 0.6 (0.2-1.0) mg/dl Direct Bilirubin 0.1 (0-0.2) mg/dl AST 26 (13-39) U/L ALT 16 (7-52) U/L Alkaline Phosphatase 52 (34-104) U/L Albumin 3.4 (3.4-5.0) gm/dl Urine 12/28/23 Range/Units 17:39 Urine Color Yellow Urine Appearance Clear (Clear) Urine pH 5.5 (4.5-7.5) Ur Specific [place] 1.031 H (1.000-1.030) Urine Protein 1+ H (Negative) Urine Glucose (UA) Negative (Negative) Diagnostic Findings Chest X-Ray 12/28/23 15:52 XR chest 1V portable CLINICAL HISTORY: Sepsis TECHNIQUE: Single frontal radiograph of the chest was obtained. Comparison: Comparison is made to chest radiograph 12/03/2023 FINDINGS: A port catheter is seen. Calcified aortic knob is seen. The lungs are clear. No evidence of pleural effusion or pneumothorax. IMPRESSION: No acute abnormalities and in particular no radiographic evidence of pneumonia. ACT 112: Negative or not required by law. Electronically signed by: Maurice Amado M.D. 12/28/2023 4:15 PM Supervising Physician Co-Signing Physician Notes Attending Addendum: Case reviewed with the advanced practitioner. I have personally performed a history and physical examination on the patient. I have reviewed the advanced practitioner's documentation on the date of service referenced in note, and I agree with, and take responsibility for the plan of care. please refer to her notes for full details patient seen and examined, records reviewed by myself as well on exam, patient Seen resting in bed, comfortable, not in distress, awake and alert States she feels very cold but otherwise feels fine Denies headache, sore throat, cough, chest pain, abdominal pain, nausea vomiting, diarrhea, problems with urination no other symptoms VS noted and reviewed oriented x 3, not in distress, speaks in sentences with no effort nor accessory muscle use normal rate, regular rhythm, no murmurs clear breath sounds bilaterally non distended, soft, nontender no bipedal edema, erythema, warmth no neuro deficits all labs, imaging noted and reviewed ASSESSMENT AND PLAN 83-year-old female with breast cancer, on chemo, etc. presenting with fever after receiving chemotherapy yesterday. Fever after chemotherapy, breast cancer Likely secondary to chemotherapy agent Rule out infection Second episode of fever after chemotherapy, was admitted 2 weeks ago for similar presentation Chest x-ray: No pneumonia, urinalysis: No UTI Blood cultures: Pending No clear focus of infection at this point, follow-up cultures Start cefepime IV Update Dr. Otoniel Blank tomorrow other diagnoses and plan of care as per advanced practitioner's notes Reg Rhodes MD (1) Fever Fever type: unspecified Qualified Code(s): R50.9 - Fever, unspecified
[2023-12-28] MEDS: CALCIUM GLUCONATE 1,000 MG/60 ML BAG IV STA (18:53)
--- NOTE | 2023-12-28 18:54 | Emergency Department Note ---
History of Present Illness General Chief complaint: Fever Stated complaint: CHEMO PATIENT, FEVER Time Seen by Provider: 12/28/23 15:51 History of Present Illness Provider complaint: Fever Onset (ago): day(s) 1 Associated symptoms: + fever/chills 83-year-old female on chemotherapy for breast cancer presents emergency department for fever. Patient reports that yesterday she had chemotherapy and then today woke up with fever of Tmax 103. She reports she took Tylenol prior to arrival in the emergency department. Patient reports chills and myalgias. No headache nausea vomiting diarrhea abdominal pain chest pain difficulty breathing cough dysuria hematuria melena or hematochezia. Home Medications Medication Instructions Recorded Confirmed Type lidocaine-prilocaine 2.5 %-2.5 % 1 applic topical DIRECTED PRN 12/07/23 12/28/23 History topical cream PORT ACCESS losartan 50 mg tablet 75 mg PO DAILY 12/07/23 12/28/23 History ondansetron HCl 8 mg tablet 8 mg PO Q8 PRN Nausea And Vomiting 12/07/23 12/28/23 History loperamide 2 mg capsule 2 mg PO Q6H PRN loose stool #20 12/10/23 12/28/23 Rx caps dexamethasone 4 mg tablet 8 mg PO DIRECTED 12/28/23 12/28/23 History vit C 250 mg-vit E 90 mg-zinc 40 1 tab PO BID 12/28/23 12/28/23 History mg-copper 1 [id number] capsule (PreserVision AREDS-2) Allergies Allergy/AdvReac Type Severity Reaction Status Date / Time lisinopril Allergy Severe Swelling Verified 12/28/23 16:47 of Lip/Tongue/Throat oxymetazoline Allergy Intermediate Hives Verified 12/28/23 16:47 [From Daily [place]] Past Med/Surg History Problem List (Updated 12/28/23 @ 18:54 by Lauri Alvares MD) Fever (Acute) Hypocalcemia (Acute) Elevated procalcitonin (Acute) Non-ST elevation [place] (NSTEMI) (Acute) Hypomagnesemia (Acute) Immunocompromised (Acute) Fever (Acute) Diabetes (Chronic) Hypertension (Chronic) Encounter for pre-operative examination Medical History Breast cancer in female L breast dx September 2023 Back problem "last vertebrae in back shifted to left" Hiatal hernia Pre-diabetes diet control Hypercholesteremia HTN (hypertension) Surgical History History of cataract surgery left History of endoscopy History of colonoscopy History of oral surgery BUMPS ON ROOF OF MOUTH REMOVED History of vein stripping 30 YR AGO Family History Grandmother Family history of diabetes mellitus Mother Family history of diabetes mellitus Brother Family history of diabetes mellitus Other Family history of MS (multiple sclerosis) Family history of throat cancer Social History Smoking Status: Never smoker Second Hand Exposure: No; Do You Dip or Chew Tobacco: No; Hx Alcohol Use: No Hx Substance Use: No Preferred Language: Kiswahili Communication Ability: Effective E Learning Specialist Required: No Beliefs That Will Affect Care: None Current Living Situation: Family Feels Safe at Home: Yes Assistive Devices: Glasses Physical Exam Vital Signs Vital Signs - 24 hr 12/28/23 15:47 12/28/23 16:28 12/28/23 17:21 Temperature 36.8 C 36.8 C Temperature Source Oral Oral Pulse Rate 80 81 Pulse Rate [Right Finger] 65 Pulse Rhythm Pulse Rhythm [Right Finger] Regular Pulse Strength [Right Finger] Normal Respiratory Rate 20 20 Respiratory Effort / Characteristics Non-Labored Spontaneous Non-Labored Spontaneous Respiratory Depth Normal Normal Blood Pressure 105/55 L Blood Pressure [Left Arm] 124/54 L Blood Pressure Mean 71 Blood Pressure Mean [Left Arm] 77 Blood Pressure Position [Left Arm] Lying Pulse Oximetry 95 95 Oxygen Delivery Method Room Air Room Air Sepsis Recent Fever Within 48 Hours Yes Sepsis New/Unexplained Change in Mental Status N/A Sepsis Action Taken by Nursing No Action Required 12/28/23 17:21 Temperature Temperature Source Pulse Rate 81 Pulse Rate [Right Finger] Pulse Rhythm Regular Pulse Rhythm [Right Finger] Pulse Strength [Right Finger] Respiratory Rate 20 Respiratory Effort / Characteristics Respiratory Depth Blood Pressure Blood Pressure [Left Arm] Blood Pressure Mean Blood Pressure Mean [Left Arm] Blood Pressure Position [Left Arm] Pulse Oximetry 95 Oxygen Delivery Method Room Air Sepsis Recent Fever Within 48 Hours Sepsis New/Unexplained Change in Mental Status Sepsis Action Taken by Nursing Physical Exam GENERAL: She is oriented to person, place, and time. She appears well-developed and well-nourished. She does not appear distressed. HENT: Exam performed. -Head: Normocephalic and atraumatic. -Right Ear: External ear normal. No mastoid erythema -Left Ear: External ear normal. No mastoid erythema -Mouth/Throat: The oropharynx is clear and moist. No trismus in the jaw. No dental abscesses or uvula swelling. No oropharyngeal exudate or tonsillar abscesses. EYES: Conjunctivae and EOM are normal. Pupils are equal, round, and reactive to light. Right eye exhibits no discharge. Left eye exhibits no discharge. No scleral icterus. NECK: Normal range of motion. Neck supple. No JVD present. No spinous process tenderness present. No rigidity. No tracheal deviation and normal range of motion present. CV: Normal rate, regular rhythm, normal heart sounds and intact distal pulses. There is no peripheral edema. Palpable radial pulses bue. PULM/CHEST: Effort normal and breath sounds normal. No respiratory distress. No stridor. She has no wheezes. She has no rales. -Chest Wall: She exhibits no tenderness. ABD: The abdomen is soft. She has no distension. No mass is present. There is no tenderness. There is no rebound, no guarding MUSC/SKEL: Normal range of motion. There is no peripheral edema, tenderness or deformity. LYMPH: No cervical adenopathy. NEURO: She is alert and oriented to person, place, and time. She has normal strength. No cranial nerve deficit or sensory deficit. Coordination and gait normal. GCS eye subscore is 4. GCS verbal subscore is 5. GCS motor subscore is 6. Cerebellar tests wnl. SKIN: Skin is warm and dry. She is not diaphoretic. PSYCH: She has a normal mood and affect. Behavior is normal. Judgment and thought content normal. Course Course 1551: The patient was evaluated in room C3. A complete history and physical exam was performed Cardiac monitoring: An order was placed for continuous cardiac monitoring. The monitor shows a rate of 80 with sinus rhythm interpreted by me 1836: Vital signs stable. Labs are unremarkable with normal white blood cell count neutrophil count lactic acid and procalcitonin. Calcium is mildly low and calcium repleted with 1 g of calcium gluconate. Urinalysis chest x-ray and respiratory BioFire negative. Discussed the case with the patient's oncologist Dr. Blank. He states the patient should be admitted and watched overnight until the cultures are back. He recommends cefepime at this time. [facility] Spoke with Kalpana who stated to admit to Dr. Joel Administered Medications Discontinued Medications Sodium Chloride (Nss) 1,000 mls @ 999 mls/hr IV .[id number] MURPHY Stop: 12/28/23 17:00 Last Admin: 12/28/23 17:32 Dose: 999 mls/hr Documented By: KAVITA Medical Decision Making Laboratory Data Attestation: I reviewed the patient's lab results. 12/28/23 17:09 12/28/23 17:09 Lab Results 12/28/23 12/28/23 12/28/23 Range/Units 17:09 17:19 17:39 WBC 4.51 L (4.8-10.8) K/ul RBC 3.49 L (4.20-5.40) M/uL Hgb 11.0 L (12.0-16.0) g/dl Hct 33.2 L (37.0-47.0) % MCV 95.1 (80.0-100.0) fL MCH 31.5 (25.0-34.0) pg MCHC 33.1 (32.0-36.0) g/dL RDW Std Deviation 61.2 H (36.4-46.3) fL RDW Coeff of Ann 17.8 H (11.5-14.5) % Plt Count 172 (130-400) K/uL MPV 10.3 (9.4-12.4) fL Immature Gran % (Auto) 0.4 % Neut % (Auto) 87.4 % Lymph % (Auto) 5.1 % [place] % (Auto) 6.7 % Eos % (Auto) 0.0 % Baso % (Auto) 0.4 % Neut # (Auto) 3.94 (1.40-6.50) K/uL Lymph # (Auto) 0.23 L (1.20-3.40) K/uL [place] # (Auto) 0.30 (0.11-0.59) K/uL Eos # (Auto) 0.00 (0.00-0.50) K/uL Baso # (Auto) 0.02 (0.00-0.20) K/uL Immature Gran # (Auto) 0.02 (0.01-0.20) K/uL PT 10.9 (9.0-12.0) Seconds INR 1.0 (0.9-1.1) APTT 24 (21-31) Seconds PTT Ratio 0.9 Sodium 131 L (136-145) mmol/L Potassium 3.9 (3.5-5.1) mmol/L Chloride 100 (98-107) mmol/L Carbon Dioxide 24 (21-32) mmol/L Anion Gap 7 (3-11) BUN 19 (6-23) mg/dl Creatinine 0.70 (0.6-1.2) mg/dl Est Cr Clr Drug Dosing 53.8 ml/min Est GFR ( Amer) 92.2 ml/min Est GFR (Non-Af Amer) 79.6 ml/min BUN/Creatinine Ratio 27.1 H (10-20) Glucose 128 H (70-99(Fasting)) mg/dl Lactate 1.5 (0.4-2.0) mmol/L Calcium 7.8 L (8.6-10.3) mg/dl Magnesium 1.6 L (1.7-2.4) mg/dl Total Bilirubin 0.6 (0.2-1.0) mg/dl Direct Bilirubin 0.1 (0-0.2) mg/dl AST 26 (13-39) U/L ALT 16 (7-52) U/L Alkaline Phosphatase 52 (34-104) U/L Troponin I High Sens 14.7 H (0-14) pg/ml Total Protein 5.8 L (6.0-8.3) gm/dl Albumin 3.4 (3.4-5.0) gm/dl Procalcitonin 0.19 (0-0.5) ng/ml Urine Color Yellow Urine Appearance Clear (Clear) Urine pH 5.5 (4.5-7.5) Ur Specific [place] 1.031 H (1.000-1.030) Urine Protein 1+ H (Negative) Urine Glucose (UA) Negative (Negative) Urine Ketones Trace H (Negative) Urine Blood Negative (Negative) Urine Nitrite Negative (Negative) Urine Bilirubin Negative (Negative) Urine Urobilinogen Negative (Negative) Ur Leukocyte Esterase Negative (Negative) Urine WBC (Auto) 0-5 (0-5) /hpf Urine RBC (Auto) 0-2 (0-2) /hpf U Hyaline Cast (Auto) 0-2 (0-2) /lpf U Epithel Cells (Auto) 3-5 H (0-2) /hpf Urine Bacteria (Auto) None Seen (None Seen) Adenovirus (PCR) Not Detected (NotDetected) B. pertussis DNA (PCR) Not Detected (NotDetected) B.parapertussis DNA PCR Not Detected (NotDetected) C. pneumoniae DNA (PCR) Not Detected (NotDetected) Coronavirus OC43 (PCR) Not Detected (NotDetected) Coronavirus HKU1 (PCR) Not Detected (NotDetected) Coronavirus 229E (PCR) Not Detected (NotDetected) SARS-CoV-2 (PCR) Not Detected (NotDetected) Coronavirus NL63 (PCR) Not Detected (NotDetected) Human Metapneumovir PCR Not Detected (NotDetected) Influenza Type A (PCR) Not Detected (NotDetected) Influenza Type B (PCR) Not Detected (NotDetected) M. pneumoniae (PCR) Not Detected (NotDetected) Parainfluenza 1 (PCR) Not Detected (NotDetected) Parainfluenza 2 (PCR) Not Detected (NotDetected) Parainfluenza 3 (PCR) Not Detected (NotDetected) Parainfluenza 4 (PCR) Not Detected (NotDetected) RSV (PCR) Not Detected (NotDetected) Entero/Rhino (PCR) Not Detected (NotDetected) Imaging Data Attestation: I personally reviewed and interpreted this imaging study as follows: My Impression: Chest x-ray negative. Airway clear. No pneumothorax. No consolidation. No cardiomegaly or cephalization.. No free air under the diaphragm. No fractures of the skeletal structures. Radiologist's Impression: Chest X-Ray 12/28/23 15:52 XR chest 1V portable CLINICAL HISTORY: Sepsis TECHNIQUE: Single frontal radiograph of the chest was obtained. Comparison: Comparison is made to chest radiograph 12/03/2023 FINDINGS: A port catheter is seen. Calcified aortic knob is seen. The lungs are clear. No evidence of pleural effusion or pneumothorax. IMPRESSION: No acute abnormalities and in particular no radiographic evidence of pneumonia. ACT 112: Negative or not required by law. Electronically signed by: Maurice Amado M.D. 12/28/2023 4:15 PM ECG Data Attestation: I personally reviewed and interpreted this ECG as follows: Rate (beats per minute): 85 Rhythm: + sinus with SA ECG ST segments: + Normal ST segments Additional Comments: [place] 106 QRS 74 QTc 452. [facility] Narrative 1551: The patient was evaluated in room C3. A complete history and physical exam was performed Cardiac monitoring: An order was placed for continuous cardiac monitoring. The monitor shows a rate of 80 with sinus rhythm interpreted by me 1836: Vital signs stable. Labs are unremarkable with normal white blood cell count neutrophil count lactic acid and procalcitonin. Calcium is mildly low and calcium repleted with 1 g of calcium gluconate. Urinalysis chest x-ray and respiratory BioFire negative. Discussed the case with the patient's oncologist Dr. Blank. He states the patient should be admitted and watched overnight until the cultures are back. He recommends cefepime at this time. [facility] 185: Spoke with Kalpana who stated to admit to Dr. Joel Impression & Plan Hypocalcemia, Fever Discharge Plan Visit Data Chief Complaint: Fever Stated Complaint: CHEMO PATIENT, FEVER ED Provider: Lauri Alvares Discharge Problem: Hypocalcemia, Fever Patient Disposition: Admitted As Inpatient Forms Stand Alone Forms: My [facility] Prescriptions Prescriptions: No Action dexamethasone 4 mg tablet 8 mg PO DIRECTED Rx Instructions: TAKES 8 MG--12 HRS AND 6 HRS PRIOR TO CHEMO. PreserVision AREDS-2 250-90-40-1 mg Capsule 1 tab PO BID losartan 50 mg tablet 75 mg PO DAILY ondansetron HCl 8 mg tablet 8 mg PO Q8 PRN (Reason: Nausea And Vomiting) lidocaine-prilocaine 2.5-2.5 % cream 1 applic topical DIRECTED PRN (Reason: PORT ACCESS) Rx Instructions: Apply to skin over mediport and cover 1 hr prior to accessing loperamide 2 mg Capsule 2 mg PO Q6H PRN (Reason: loose stool) Qty: 20 0RF Referrals Referrals: Toby Bell MD [Primary Care Provider] - Discharge Problem: Fever Qualifiers: Fever type: unspecified Qualified Code(s): R50.9 - Fever, unspecified
[2023-12-28] MEDS: MAGNESIUM SULFATE / D5W 1 GM/100 ML BAG IV ONE (19:39)
[2023-12-28] MEDS ORDERED: POLYETHYLENE (MIRALAX) 17 GM PACK PO PRN (20:28)
[2023-12-28] MEDS ORDERED: ONDANSETRON INJ 2 MG/ML 2 ML VIAL IV PRN (20:28)
[2023-12-28] MEDS: ENOXAPARIN INJ 40 MG/0.4 ML SYR SQ SCH (21:34)
[2023-12-28] MEDS: NYSTATIN 500,000 UNIT TAB PO SCH (21:34)
--- OUTSIDE RECORDS SUMMARY | 2023-12-28 23:57 | External Medical Summary | Summary of Care ---
Author Name Unknown Organization [facility] Address [address] [place] [address] Phone [phone] Care Team Providers Care Mailing Specialist Name Role Phone Toby Bell MD Primary Care Provider [phone]- [phone] Reason for Visit * Reason Comments Chemotherapy [...] 01/23/24 PER TREATMENT PLAN Nas Palacios MD [address] [place] [id number] Anc Hem/Onc [address] [address] Referral ID Status Reason Start Date Expiration Date V isits Requested Visits Authorized [id number] Authorized 10/27/2023 01/16/2024 999 99 Encounter Details Date Type Department Care Team (Latest Contact Info) Description 12/06/2023 9:00 AM EDT Hem/Onc Treatment Hematology/Oncolog y Treatment, [address] [address] Christina, Chair 10 Hem Onc [address] [place] [address] Encounter for antineoplastic chemotherapy*; Malignant neoplasm of upper-inner quadrant of left breast in female, estrogen receptor negative (HCC) Allergies Active Allergy Reactions Criticality Noted Date Comments Guaifenesin & Derivatives 10/11/2000 Daily--hives Lisinopril Edema face/lips/tongue High 08/05/2021 documented as of this encounter (statuses as of 12/28/2023) Medications Medication Sig Dispensed Refills Start Date [...] as of this encounter (statuses as of 12/28/2023) Active Problems Problem Noted Date Diagnosed Date [...] as of this encounter (statuses as of 12/28/2023) Immunizations Name Administration Dates Next Due COVID-19 [...] No 10/11/2023 Does the household have a [facility] source of income? (Household - for ages [...] Care Team (Late st Contact Info) Description 01/03/2024 8:00 AM EDT Laboratory Laboratory [facility] [place] [address] [place] [phone] Christina, Lab [facility] [address] [place] [address] 01/03/2024 9:00 AM EDT Hem/Onc Treatment Hematology/Oncology Treatment, [place] [address] [place] [phone] Christina Chair 6 Hem Onc [address] [place] [address] 01/10/2024 8:30 AM EDT Laboratory Laboratory [facility] [place] [address] [place] [phone] Christina, Lab [address] [place] [address] 01/10/2024 9:00 AM EDT Office Visit Hematology/Oncology [facility] [place] [address] [place] [phone] Alissa Roldan CRNP [address] [place] [address] 01/10/2024 9:30 AM EDT Hem/Onc Treatment Hematology/Oncology [facility] [address] [place], [place] [phone] Christina, Chair 8 Hem Onc [facility] [address] [place] [address] 01/17/2024 1:00 PM EDT Office Visit General Surgery, [facility] [address] [place] [address] Mariah Abdul MD [address] [facility] [address] 01/31/2024 9:00 AM EDT Office Visit Hematology/Oncology [facility] [place] [address] [place] [phone] Nas Palacios MD [address] [place], [place] [address] 02/03/2024 10:30 AM EDT Telemedicine Genetics HemOnc, C [address] [place] [address] Mabel Ford, MS [address] [place] [address] 03/16/2024 2:40 PM EDT [facility] [place] [address] [facility] [phone] Toby Bell MD [address] [facility] [place] [id number] 04/10/2024 10:30 AM EST [address] Radiology, [address] [address] Health Maintenance Due Date Last Done Comments DXA Scan 1939 Albumin/Creatinine Ratio 09/16/1958 Adult Wellness Visit 09/16/2005 COVID-19 Vaccine ( season) 2023 09/16/2020, 08/15/2020 HbA1c 05/06/2023 11/04/2022 Influenza Vaccine (FLU shot) (#1) 2024 03/04/2023, 02/08/2022, 02/14/2020, Additional history exists Diabetic Foot Exam 10/10/2024 10/11/2023 Diabetic Eye Exam 10/19/2024 10/20/2023, , 10/20/2023, Additional history exists Depression Screening 12/13/2024 12/14/2023, 10/11/19 24 12/26/2024 12/27/2023, 11/21, 12/12/2023, Additional history exists DTaP,Tdap,and Td Vaccines (3 [...] this encounter Medical Devices Implanted Type Area Automatic Car Wash Attendant Device Identifier Shelf Expiration Date Model / Serial / Lot Port Power Mri W8fr Cath - [id number] Implanted:Qty: 1 on 11/02/2023 by Mariah Abdul MD at OR [facility] Right: Chest CR BARD : PERIPHERAL VASCULAR 08/20/2024 [id number] / / [id number] documented as of this encounter Visit Diagnoses [...] Given 12/06/2023 9:27 AM EDT 20 mg hEParin 100 UNIT/ML Lock Flush inj 500 Units 500 Units (5 mL), IV Lock, PRN Other, IV Flush, Starting on Tue12/06/23 at 0907, Until Tue12/06/23 at 1752, For 24 hours, Do not flush if lock, PICC, or central line not in place; IV infusing or unable to flush. Given 12/06/2023 12:31 PM EDT 500 Units NSS infusion Intravenous, at 50 mL/hr, PRN, Starting on Tue12/06/23 at 1015, Until Tue12/06/23 at 1752, Maintenance line Start Infusion 12/06/2023 9:26 AM EDT 50 mL/hr PACLitaxel (Taxol) 138 [...] at 0945, For 1 dose, Restricted per [facility] antiemetic guidelines Given 12/06/2023 9:27 AM EDT 0.25 mg sodium chloride 0.9 % flush central line 10 mL 10 mL, IV Push, PRN Other, IV Flush, Starting on Tue12/06/23 at 0907, Until Tue12/06/23 at 1752, For 24 hours, Do not flush if lock, PICC, or central line not in place; IV infusing or unable to flush. 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 Question Answer Comments Discussion of Advance Directives occurred with: Patient Care Teams Mailing Specialist Relationship Specialty Start Date End Date Toby Bell MD [address] [place] [address] PCP - General Family Medicine 02/08/22 documented as of this encounter
--- OUTSIDE RECORDS SUMMARY | 2023-12-28 23:57 | External Medical Summary | Summary of Care ---
Author Name Unknown Organization [facility] Address [address] [place] [address] Phone [phone] Care Team Providers Care Car Dropper Name Role Phone Toby Bell MD Primary Care Provider [phone]- [phone] Reason for Visit * Reason Comments Chemotherapy paclitaxel, carbo * Episode Based Medications (Routine) - Authorized Specialty Diagnoses / Procedures Referred By Ese medina Referred To Contact Diagnoses Encounter for antineoplastic chemotherapy Malignant neoplasm of upper-inner quadrant of left breast in female, estrogen receptor negative (HCC) Procedures TN PALONOSETRON HCL TN CARBOPLATIN INJECTION TN INJ PEMBROLIZUMAB TN PACLITAXEL INJECTION DOXO, EMEND, CYTOXAN-TO START 01/22/24, UDENYCA TO START 01/23/24 PER TREATMENT PLAN Nas Palacios MD [address] [place] [address] Anc Hem/Onc [address] [address] Referral ID Status Reason Start Date Expiration Date V isits Requested Visits Authorized [id number] Authorized 10/27/2023 01/16/2024 999 99 Encounter Details Date Type Department Care Team (Latest Contact Info) Description 12/27/2023 10:15 AM EDT Hem/Onc Treatment Hematology/Oncolog y Treatment, [address] [phone] Christina, Chair 8 Hem Onc Scenery [address] [place] [address] Encounter for antineoplastic chemotherapy*; Malignant neoplasm of upper-inner quadrant of left breast in female, estrogen receptor negative (HCC) Allergies Active Allergy Reactions Criticality Noted Date Comments Guaifenesin & Derivatives 10/11/2000 Daily--hives Lisinopril Edema face/lips/tongue High 08/05/2021 documented as of this encounter (statuses as of 12/27/2023) Medications Medication Sig Dispensed Refills Start Date End Date Status OCUVITE OR TABS 1 TABLET DAILY 30 0 04/16/2002 Active Atorvastatin Calcium 40 MG Oral Tablet (Lipitor) Take 1 Tablet by mouth in the morning. 90 Tablet 3 10/24/2023 Active Additional Information Patient not taking.Reported on 12/21/2023 Losartan Potassium 50 MG Oral Tablet (Cozaar) [...] Active Additional Information Patient not taking.Reported on 12/21/2023 Lidocaine-Prilocai ne 2.5-2.5 % External Cream (Emla)Indications: Malignant neoplasm of upper-inner quadrant of left breast in female, estrogen receptor negative (HCC) APPLY TO SKIN OVER MEDIPORT & COVER 1HR PRIOR TO ACCESSING. 30 g 1 10/28/2023 Active Loperamide HCl 2 MG Oral Tablet (Immodium (A-D)) Take 1 Tablet by mouth every 6 hours as needed for Diarrhea. 30 Tablet 12/14/2023 Active Amoxicillin-Pot Clavulanate 875-125 MG Oral Tablet (Augmentin) Take 1 Tablet by mouth in the morning and 1 Tablet before bedtime. 12/14/2023 Active dexAMETHasone 4 MG Oral TabletIndications: Malignant neoplasm of upper-inner quadrant of left breast in female, estrogen receptor negative (HCC) 8 mg (2 tab) 12 and 6 hours before chemotherapy 40 Tablet 12/19/2023 Active documented as of this encounter (statuses as of 12/27/2023) Active Problems Problem Noted Date Diagnosed Date [...] as of this encounter (statuses as of 12/27/2023) Immunizations Name Administration Dates Next Due COVID-19 [...] Date Recorded PHQ Adult Total Score 0 12/14/2023 Hunger Vital Sign Answer Date Recorded Within the past 12 months, y ou worried that your food would run out before you got the money to buy more. Never true 12/21/19 24 Within the past 12 months, t he food you bought just didn't last and you didn't have money to get more. Never true 12/21/2023 Childcare Answer Date Recorded Do you feel overwhelmed with taking care of a child, family member or friend? No 12/21/2023 Does your family need help f inding childcare? (Household - for ages 0-17 years) Not on file 12/21/2023 Clothing Answer Date Recorded Have you been unable to get clothing when it was really needed? No 12/21/2023 Is your family able to get c lothes or diapers when needed? (Household - for ages 0-17 years) Not on file 12/21/2023 Personal Safety Answer Date Recorded Do you feel unsafe or have concerns for your saf ety? No 12/21/2023 Do you have concerns for you r family's safety? (Household - for ages 0-17 years) Not on file 12/21/2023 Utilities Answer Date Recorded Do you have trouble paying y our heating, water, or electric bill? No 12/21/2023 Is your family able to pay t he heat, water, or electric bill? (Household - for ages 0-17 years) Not on file 12/21/2023 Does your family have access to good internet? (Household - for ages 0-17 years) Not on file 12/21/2023 Employment Status Answer Date Recorded Are you unemployed or without regular income? No 12/21/2023 Does the household have a [facility] source of income? (Household - for ages 0-17 years) Not on file 12/21/2023 Social Connections Answer Date Recorded How often do you feel lonely or isolated from th ose around you? Never 12/21/2023 Financial Resource Strain Answer Date R ecorded Do you have any trouble payi ng for your medications, or do you think you might in the future? No 12/21/2023 Does your family have troubl e paying for medicine? (Household - for ages 0-17 years) Not on file 12/21/2023 Transportation Needs Answer Date Record ed READ ONLY Do you have troubl e getting a ride to medical visits or work? Never True 12/21/2023 Does your family have a hard time getting a ride to doctors visits? (Household - for ages 0-17 years) Not on file 12/21/2023 Has lack of transportation k ept you from medical appointments, meetings, work, or from getting things needed for daily living? Check all that apply. No 12/21/2023 Do you (or your family) have trouble finding or paying for a ride (transportation)? (Household - for ages 0-17 years) Not on file 12/21/2023 Housing Stability Answer Date Recorded Do you currently live in a s helter or have no steady place to sleep at night? No 12/21/2023 READ ONLY Do you think you a re at risk of becoming homeless? No 12/21/2023 Does your family worry about paying for your home or becoming homeless? (Household - for ages 0-17 years) Not on file 0 12/21/2023 Are you homeless or worried that you might be in the future? No 12/21/2023 Are you (or your family) eli eless or worried that you might be in the future? (Household - for ages 0-17 years) Not on file Food Insecurity Answer Date Recorded Do you need food for this week? No 12/21/2023 Are you able to get enough f ood for your family? (Household - for ages 0-17 years) Not on file 12/21/2023 Does your family need food t his week? (Household - for ages 0-17 years) Not on file 12/21/2023 Do you always have enough fo od for your family? (Household - for ages 0-17 years) Not on file 12/21/2023 Sex and Gender Information Value Date Recorded Sex Assigned at Female 10/11/2023 1:22 PM EDT Gender Identity Female 10/11/2023 1:22 PM EDT Sexual Orientation Straight 10/11/2023 1: 22 PM EDT Job Start Date Occupation Industry Not on file Not on file Not on file documented as of this encounter Last Filed Vital Signs Vital Sign Reading Time Taken Comments Blood Pressure 177/79 12/27/2023 10:05 AM EDT Pulse 94 12/27/2023 10:05 AM EDT Temperature 36.4 C (97.5 F) 12/27/2023 1 0:05 AM EDT Respiratory Rate 18 12/27/2023 10:0 5 AM EDT Oxygen Saturation 94% 12/27/2023 10: 05 AM EDT Inhaled Oxygen Concentration - - Weight 59.8 kg (131 lb 12.8 oz) 024 10:05 AM EDT Height - - Body Mass Index 20.64 12/15/2023 12:30 PM EDT documented in this encounter Nursing Notes * Giselle Hurtado RN - 12/27/2023 12:44 PM EDT Goals: Patient will remain free from injury. Possible barriers to meeting goals: Fall risk d/t ambulation with IV pole. Stability of the patient: Moderately unstable - medium risk of patient condition declining or worsening Summary regarding today's goals: Met: Patient remained free of injury. Patient tolerated infusiuon well. Discharged in stable condition. * Giselle Hurtado RN - 12/27/2023 10:27 AM EDT Chair 10. Patient arrived for paclitaxel, carboplatin with no acute complaints. Patient states she has been feeling good. VAD accessed. Chemotherapy/Immunotherapy agents: paclitaxel, carboplatin Consent for chemotherapy drug treatment complete, dated, and signed? yes, date - 10/26/23 Treatment lab parameters met? Yes Has treatment weight changed > than 10%? No Treatment preauthorized? Yes VITALS Filed Vitals: 12/27/23 1005 BP: 177/79 Pulse: 94 Resp: 18 Temp: 36.4 C (97.5 F) TempSrc: Tympanic SpO2: 94% Weight: 59.8 kg (131 lb 12.8 oz) Urine protein: N/A Patient education completed for treatment? Yes Blood transfusion consent signed and complete? NA Return appointment scheduled? Yes Patient had provider visit today? No - If no provider visit must complete Pretreatment Assessment Functional Status: Functional status at today's visit: Ambulatory and capable of all selfcare but unable to carry out any work activities. Up and about more than 50% of waking hours The drug name, dose, infusion volume, rate and route of administration, expiration date and time, appearance and physical integrity of the drug and rate set on the pump and sequencing of drug administration (as applicable) were verified by me and second sign-in RN. Patient was assessed for symptoms or adverse side effects during treatment. Patient Education: Patient instructed on use of heat and massage functions where applicable. Patient shown how to operate the heat function of the chair and to alert nursing staff if the chair feels too warm. Patient instructed on the risk of potential solano while using the heat function. PRE-TREATMENT ASSESSMENT: NEURO: denies symptoms CV/RESP: denies [...] Description 01/03/2024 8:00 AM EDT Laboratory Laboratory [facility] [place] [address] [place] [phone] [place], Lab [facility] [address] [facility] [address] 01/03/2024 9:00 AM EDT Hem/Onc Treatment Hematology/Oncology Treatment, [place] [address] [place] [phone] Christina, Chair 6 Hem Onc [facility] [address] [place] [address] 01/10/2024 8:30 AM EDT Laboratory Laboratory [facility] [place] [address] [place] [address] Christina, Lab [facility] [address] [facility] [place] [address] 01/10/2024 9:00 AM EDT Office Visit Hematology/Oncology [facility] [place] [address] [place] [phone] Alissa Roldan CRNP [address] [place] [address] [place] [address] 01/10/2024 9:30 AM EDT Hem/Onc Treatment Hematology/Oncology [facility], [place] [address] [place] [phone] Christina, Chair 8 Hem Onc [address] [facility] [place] [address] 01/17/2024 1:00 PM EDT Office Visit General Surgery, [facility] [place] [address] Mariah Abdul MD [address] [place] [address] 01/31/2024 9:00 AM EDT Office Visit Hematology/Oncology [facility] [address] [place] [phone] Nas Palacios MD 200 [facility] [place] [address] 02/03/2024 10:30 AM EDT Telemedicine Genetics HemOnc, [facility] [address] [place] [address] Mabel Ford, MS [address] [place] [address] 03/16/2024 2:40 PM EDT Office Visit [facility] [address] [place] [address] Toby Bell MD [address] [place], [place] [phone] 04/10/2024 10:30 AM EST Imaging Radiology, [address] [place] [address] Health Maintenance Due Date Last Done Comments DXA Scan 1939 Albumin/Creatinine Ratio 09/16/1958 Adult Wellness Visit 09/16/2005 COVID-19 Vaccine (3 - Moderna risk series) 10/14/2020 09/16/2020, 08/15/2020 HbA1c 05/06/2023 11/04/2022 Influenza Vaccine (FLU shot) (#1) 2024 03/04/2023, 02/08/2022, 02/14/2020, Additional history exists Diabetic Foot Exam 10/10/2024 10/11/2023 Diabetic Eye Exam 10/19/2024 10/20/2023, , 10/20/2023, Additional history exists Depression Screening 12/13/2024 12/14/2023, 10/11/19 24 GFR 12/26/2024 12/27/2023, 11/21, 12/12/2023, Additional history exists [...] this encounter Medical Devices Implanted Type Area Counter Hand Device Identifier Shelf Expiration Date Model / Serial / Lot Port Power Mri W8fr Cath - [id number] Implanted:Qty: 1 on 11/02/2023 by Mariah Abdlu MD at OR [facility] Right: Chest CR BARD : PERIPHERAL VASCULAR 08/20/2024 [id number] / / [id number] documented as of this encounter Visit Diagnoses [...] ONCE PRN Other, Hypersensitivity Reaction, Starting on Tue12/27/23 at 1005, Until Tue12/28/23 at 1004, For 24 hours EPINEPHrine 1 MG/ML inj 0.3 mg 0.3 mg, Intramuscular, ONCE PRN Other, Hypersensitivity Reaction or Anaphylaxis, Starting on Tue12/27/23 at 1005, Until Tue12/28/23 at 1004, For 24 hours hEParin 100 UNIT/ML Lock Flush inj 500 Units 500 Units (5 mL), IV Lock, PRN Other, IV Flush, Starting on Tue12/27/23 at 1005, Until Tue12/28/23 at 1004, For 24 hours, Do not flush if lock, PICC, or central line not in place; IV infusing or unable to flush. Given 12/27/2023 12:34 PM EDT 500 Units Hydrocortisone Sod Suc (PF) (Solu-Cortef) inj 100 mg 100 mg, IV Push, ONCE PRN Other, Hypersensitivity Reaction, Starting on Tue12/27/23 at 1005, Until Tue12/28/23 at 1004, For 24 hours LORAzepam (Ativan) tab 0.5 mg 0.5 mg, Oral, ONCE PRN Anxiety, Nausea, Starting on Tue12/27/23 at 1045, Until Discontinued NSS infusion Intravenous, at 50 mL/hr, PRN, Starting on Tue12/27/23 at 1045, Until Discontinued, Maintenance line Start Infusion 12/27/2023 10:22 AM EDT 50 mL/hr oxygen GAS Inhalation, OXYGEN, First dose on Tue12/27/23 at 1045, Until Discontinued, Device/Managed by: Low Flow Device, [...] Push, PRN Other, IV Flush, Starting on Tue12/27/23 at 1005, Until Tue12/28/23 at 1004, For 24 hours, Do not flush if lock, PICC, or central line not in place; IV infusing or unable to flush. Given 12/27/2023 12:34 PM EDT 10 mL Inactive Administered Medications - up to 3 most recent administrations Medication Order MAR Action Action Date Dose Rate Site CARBOplatin (Paraplatin) 98 mg in D5W 250 mL infusion 98 mg (rounded from 98.0475 mg, Target AUC = 1.28), IV Piggyback, at 510 mL/hr Administer over 30 Minutes, PROTECT FROM LIGHT, ONCE, 1 dose, On Tue12/27/23 at 1245 Start Infusion 12/27/2023 12:00 PM EDT 98 mg 510 mL/hr dexAMETHasone (Decadron) tab 12 mg 12 mg, Oral, ONCE, On Tue12/27/23 at 1045, For 1 dose Given 12/27/2023 10:22 AM EDT 12 mg diphenhydrAMINE (Benadryl) inj 25 mg 25 mg, IV Push, ONCE, On Tue12/27/23 at 1045, For 1 dose Given 12/27/2023 10:22 AM EDT 25 mg Famotidine (Pepcid) tab 20 mg 20 mg, Oral, ONCE, On Tue12/27/23 at 1045, For 1 dose Given 12/27/2023 10:22 AM EDT 20 mg PACLitaxel (Taxol) 117 mg in NSS 250 mL infusion 117 mg (rounded from 116.96 mg = 68 mg/m2 1.72 m2 Treatment Plan BSA from Recorded weight), IV Piggyback, ONCE, 1 dose, On Tue12/27/23 at 1145, Administer over 60 Minutes, Administer through 0.22 micron low protein binding filter! 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 Question Answer Comments Discussion of Advance Directives occurred with: Patient Care Teams Car Dropper Relationship Specialty Start Date End Date Toby Bell MD [address] [place] [address] PCP - General Family Medicine 02/08/22 documented as of this encounter
--- OUTSIDE RECORDS SUMMARY | 2023-12-28 23:57 | External Medical Summary | Summary of Care ---
Author Name Unknown Organization [facility] Address [address] [place] [address] Phone [phone] Care Team Providers Care Footwear Sales Representative Name Role Phone Toby Bell MD Primary Care Provider +1- [phone] Reason for Visit * Reason Comments Chemotherapy [...] 01/23/24 PER TREATMENT PLAN Nas Palacios MD [address] [place] [address] Anc Hem/Onc [address] [address] Referral ID Status Reason Start Date Expiration Date V isits Requested Visits Authorized [id number] Authorized 10/27/2023 01/16/2024 999 99 Encounter Details Date Type Department Care Team (Latest Contact Info) Description 12/06/2023 9:00 AM EDT Hem/Onc Treatment Hematology/Oncolog y Treatment, [address] [address] Christina, Chair 10 Hem Onc Scenery [address] [place] [address] Encounter for antineoplastic chemotherapy*; Malignant neoplasm of [...] No 10/11/2023 Does the household have a [facility] source of income? (Household - for ages [...] Description 01/03/2024 8:00 AM EDT Laboratory Laboratory [facility] [place] [address] [place] [phone] Christina, Lab [facility] [address] [place] [address] 01/03/2024 9:00 AM EDT Hem/Onc Treatment Hematology/Oncology Treatment, [place] [address] [place] [phone] Christina Chair 6 Hem Onc Scenery [address] [place] [address] 01/10/2024 8:30 AM EDT Laboratory Laboratory [facility] [place] [address] [place] [phone] Christina, Lab Scenery [address] [place] [address] 01/10/2024 9:00 AM EDT Office Visit Hematology/Oncology [facility] [place] [address] [place] [phone] Alissa Roldan CRNP [address] [place] [address] 01/10/2024 9:30 AM EDT Hem/Onc Treatment Hematology/Oncology [facility] [address] [place], [place] [phone] Christina, Chair 8 Hem Onc [facility] [address] [place] [address] 01/17/2024 1:00 PM EDT Office Visit General Surgery, [facility] [address] [place] [address] Mariah Abdul MD 132 [facility] [address] 01/31/2024 9:00 AM EDT Office Visit Hematology/Oncology [facility] [place] [address] [place] [phone] Nas Palacios MD [address] [place], [place] [address] 02/03/2024 10:30 AM EDT Telemedicine Genetics HemOnc, C [address] [place] [address] Mabel Ford, [place] [address] [place] [address] 03/16/2024 2:40 PM EDT Office Visit [place] [address] [address] [facility] [address] Toby Bell MD [address] [facility] [place] [id number] 04/10/2024 10:30 AM EST Imaging Radiology, [address] [address] Health Maintenance Due Date Last Done Comments [...] this encounter Medical Devices Implanted Type Area Business Division Chair Device Identifier Shelf Expiration Date Model / Serial / Lot Port Power Mri W8fr Cath - [id number] Implanted:Qty: 1 on 11/02/2023 by Mariah Abdul MD at OR [facility] Right: Chest CR BARD : PERIPHERAL VASCULAR 08/20/2024 [id number] / / [id number] documented as of this encounter Visit Diagnoses [...] at 0945, For 1 dose, Restricted per [facility] antiemetic guidelines Given 12/06/2023 9:27 AM EDT [...] Documents on File Type Date Recorded Patient Pasteurizer Expl anation Advance Directives and Living Will 12/16/2023 signed on 12/30/1993 Power of Content Strategy Lead 12/16/2023 signed on 11/14/2020 * Full Code (Latest Code Status on File) Date Activated Date Inactivated Comments 11/02/2023 11:37 AM 11/02/2023 6:38 PM This order reflects the patients wishes and were consensually agreed upon. Question Answer Comments Discussion of Advance Directives occurred with: Patient Care Teams Footwear Sales Representative Relationship Specialty Start Date End Date Toby Bell MD [address] [place] [address] PCP - General Family Medicine 02/08/22 documented as of this encounter
--- OUTSIDE RECORDS SUMMARY | 2023-12-28 23:57 | External Medical Summary | Summary of Care ---
Author Name Unknown Organization [facility] Address [address] [place] [address] Phone [phone] Care Team Providers Care Doctor Of Chiropractic Name Role Phone Toby Bell MD Primary Care Provider +1- [phone] Reason for Visit * Reason Comments Chemotherapy [...] 01/23/24 PER TREATMENT PLAN Nas Palacios MD [address] [place] [address] Anc Hem/Onc [address] [address] Referral ID Status Reason Start Date Expiration Date V isits Requested Visits Authorized [id number] Authorized 10/27/2023 01/16/2024 999 99 Encounter Details Date Type Department Care Team (Latest Contact Info) Description 11/28/2023 11:00 AM EDT Hem/Onc Treatment Hematology/Oncolog y Treatment, [address] [address] Christina, Chair 10 Hem Onc Scenery [address] [place], [place] [address] Encounter for antineoplastic chemotherapy*; Malignant neoplasm of [...] AM EDT Chair Port accessed. No issues. natural sciences department chair ANC with Dr. Palacios -- ANC today [...] Description 01/03/2024 8:00 AM EDT Laboratory Laboratory [facility] [place] 200 [facility] [place] [phone] Christina, Lab [facility] 200 [facility] [place] [address] 01/03/2024 9:00 AM EDT Hem/Onc Treatment Hematology/Oncology [address] [phone] Christina, Chair 6 Hem On[address] [place] [address] 01/10/2024 8:30 AM EDT Laboratory Laboratory [facility] [place] 200 [facility] [place] [address] Christina, Lab [facility] 200 [facility] [place] [address] 01/10/2024 9:00 AM EDT Office Visit Hematology/Oncology [facility] [place] 200 [facility] [place] [address] Alissa Roldan CRNP 400 [facility] [place] [address] 01/10/2024 9:30 AM EDT Hem/Onc Treatment Hematology/Oncology Treatment, [place] 200 [facility] [address] Christina, Chair 8 Hem Onc [facility] 200 [facility] [place] [address] 01/17/2024 1:00 PM EDT Office Visit General Surgery, [facility] [place] [address] Mariah Abdul MD [address] [place] [address] 01/31/2024 9:00 AM EDT Office Visit Hematology/Oncology [facility] [place] 200 [facility] [place] [phone] Nas Palacios MD 200 [facility] [place] [address] 02/03/2024 10:30 AM EDT Telemedicine Genetics HemOnc, [facility] [address] [place], [place] [phone] Mabel Ford, [place] [address] [place] [address] 03/16/2024 2:40 PM EDT [facility] [address] [place] [phone] Toby Bell MD [address] [place] [address] 04/10/2024 10:30 AM EST Imaging Radiology, [address] [place] [address] Health Maintenance Due Date Last Done Comments [...] this encounter Medical Devices Implanted Type Area Washateria Attendant Device Identifier Shelf Expiration Date Model / Serial / Lot Port Power Mri W8fr Cath - [id number] Implanted:Qty: 1 on 11/02/2023 by Mariah Abdul MD at OR [facility] Right: Chest CR BARD : PERIPHERAL VASCULAR 08/20/2024 [id number] / / [id number] documented as of this encounter Visit Diagnoses [...] Given 11/28/2023 11:31 AM EDT 20 mg hEParin 100 UNIT/ML Lock Flush inj 500 Units 500 Units (5 mL), IV Lock, PRN Other, IV Flush, Starting on Tue11/28/23 at 1122, Until Tue11/28/23 at 203, For 24 hours, Do not flush if lock, PICC, or central line not in place; IV infusing or unable to flush. Given 11/28/2023 2:06 PM EDT 500 Units NSS infusion Intravenous, at 50 mL/hr, PRN, Starting on Tue11/28/23 at 1230, Until Tue11/28/23 at 203, Maintenance line Start Infusion 11/28/2023 11:34 AM EDT 50 mL/hr PACLitaxel (Taxol) 138 [...] at 1145, For 1 dose, Restricted per S antiemetic guidelines Given 11/28/2023 11:32 AM EDT 0.25 mg Pembrolizumab (Keytruda) 200 mg in NSS 100 mL infusion 200 mg, IV Piggyback, ONCE, 1 dose, On Tue11/28/23 at 1300, Administer over 30 Minutes, Infuse through 0.2 micron filter. Start Infusion 11/28/2023 11:40 AM EDT 200 mg 226 mL/hr sodium chloride 0.9 % flush central line 10 mL 10 mL, IV Push, PRN Other, IV Flush, Starting on Tue11/28/23 at 1122, Until Tue11/28/23 at 2038, For 24 hours, Do not flush if lock, PICC, or central line not in place; IV infusing or unable to flush. Given 11/28/2023 2:06 PM EDT 10 mL documented in this encounter Advance Directives Documents on File Type Date Recorded Patient Computer Help Desk Specialist Expl anation Advance Directives and Living Will 12/16/2023 signed on 12/30/1993 Power of Hooker Laster 12/16/2023 signed on 11/14/2020 * Full Code (Latest Code Status on File) Date Activated Date Inactivated Comments 11/02/2023 11:37 AM 11/02/2023 6:38 PM This order reflects the patients wishes and were consensually agreed upon. Question Answer Comments Discussion of Advance Directives occurred with: Patient Care Teams Doctor Of Chiropractic Relationship Specialty Start Date End Date Toby Bell MD [address] [facility] [place] [address] PCP - General Family Medicine 02/08/22 documented as of this encounter
--- OUTSIDE RECORDS SUMMARY | 2023-12-28 23:57 | External Medical Summary | Summary of Care ---
Author Name Unknown Organization [facility] Address [address] [place] [address] Phone [phone] Care Team Providers Care Rubber Cutting Machine Tender Name Role Phone Toby Bell MD Primary Care Provider +1- [phone] Reason for Visit * Reason Comments Outpatient Testing Encounter Details Date Type Department Care Team (Late st Contact Info) Description 12/27/2023 9:10 AM EDT Laboratory Laboratory [place] [address] [place] [phone] [facility] Lab Scenery [address] [place] [address] Malignant neoplasm of upper-inner quadrant of left [...] No 12/21/2023 Does the household have a re gular [...] Care Team (Late st Contact Info) Description 12/27/2023 10:15 AM EDT Hem/Onc Treatment Hematology/Oncology [address] [phone] Christina, Chair 8 Hem Onc [place] [address] [place] [address] Arrived 01/03/2024 8:00 AM EDT Laboratory Laboratory [facility] [place] [address] [place] [phone] Christina, Lab [facility] [address] [place] [address] 01/03/2024 9:00 AM EDT Hem/Onc Treatment Hematology/Oncology Treatment, [place] 200 [facility] [place] [phone] Christina, Chair 6 Hem Onc [facility] [address] [place] [address] 01/10/2024 8:30 AM EDT Laboratory Laboratory [facility] [address] [place] [phone] Christina, Lab [place] 200 [facility] [place], [place] [address] 01/10/2024 9:00 AM EDT Office Visit Hematology/Oncology [facility] [address] [place] [phone] Alissa Roldan CRNP 400 [facility] [place] [address] 01/10/2024 9:30 AM EDT Hem/Onc Treatment Hematology/Oncology [facility], [place] 200 [facility], [place] [phone] Christina, Chair 9 Hem Onc [facility] 200 [facility] [place] [address] 01/17/2024 1:00 PM EDT Office Visit General Surgery, [facility] 132 [facility] [place] [address] Mariah Abdul MD 132 [facility] [address] 01/31/2024 9:00 AM EDT Office Visit Hematology/Oncology [facility] [address] [place] [phone] Nas Palacios MD [address] [place] [address] 02/03/2024 10:30 AM EDT Telemedicine Genetics HemOnc, [facility] 100 [place] [address] Mabel Ford, [address] [place] [address] 03/16/2024 2:40 PM EDT Office Visit [address] [address] Toby Bell MD [address] [place], [place] [address] 04/10/2024 10:30 AM EST Imaging Radiology, [address] [place] [address] Pending Results Name Type Priority Associated Diagnoses Date /Time CBC WITH WBC DIFFERENTIAL Lab STAT Malignant neoplasm of upper-inner quadrant of left breast in female, estrogen receptor negative (HCC) 12/27/2023 9:20 AM EDT COMPREHENSIVE METABOLIC PANEL Lab STAT Malignant neoplasm of upper-inner quadrant of left breast in female, estrogen receptor negative (HCC) 12/27/2023 9:20 AM EDT CBC Lab STAT Malignant neoplasm of upper-inner quadrant of left breast in female, estrogen receptor negative (HCC) 12/27/2023 9:20 AM EDT DIFFERENTIAL, AUTOMATED Lab STAT Malignant neoplasm of upper-inner quadrant of left breast in female, estrogen receptor negative (HCC) 12/27/2023 9:20 AM EDT Health Maintenance Due Date Last Done Comments DXA Scan 1940 Albumin/Creatinine Ratio 09/16/1958 Adult Wellness Visit 09/16/2005 COVID-19 Vaccine ( season) 2023 09/16/2020, 08/15/2020 HbA1c 05/06/2023 11/04/2022 Influenza Vaccine (FLU shot) (#1) 2024 03/04/2023, 02/08/2022, 02/14/2020, Additional history exists Diabetic Foot Exam 10/10/2024 10/11/2023 Diabetic Eye Exam 10/19/2024 10/20/2023, , 10/20/2023, Additional history exists Depression Screening 12/13/2024 12/14/2023, 10/11/19 24 GFR 12/18/2024 12/19/2023, 11/21, 12/06/2023, Additional history exists DTaP,Tdap,and Td Vaccines (3 [...] this encounter Medical Devices Implanted Type Area Physician Recruiter Device Identifier Shelf Expiration Date Model / Serial / Lot Port Power Mri W8fr Cath - [id number] Implanted:Qty: 1 on 11/02/2023 by Mariah Abdul MD at OR [facility] Right: Chest CR BARD : PERIPHERAL VASCULAR 08/20/2024 [id number] / / [id number] documented as of this encounter Visit Diagnoses Diagnosis Malignant neoplasm of upper-inner quadrant of left breast in female, estrogen receptor negative (HCC) documented in this encounter Advance Directives Documents on File Type Date Recorded 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 Question Answer Comments Discussion of Advance Directives occurred with: Patient Care Teams Rubber Cutting Machine Tender Relationship Specialty Start Date End Date Toby Bell MD [address] [place] [address] PCP - General Family Medicine 02/08/22 documented as of this encounter
--- OUTSIDE RECORDS SUMMARY | 2023-12-28 23:57 | External Medical Summary | Summary of Care ---
Author Name Unknown Organization [facility] Address [address] [place] [address] Phone [phone] Care Team Providers Care Chassis Engineer Name Role Phone Toby Bell MD Primary Care Provider +1- [phone] Reason for Visit * Reason Comments Chemotherapy C2/D1 - Keytruda, Ta xol, Carboplatin * Episode Based Medications (Routine) - Authorized Specialty Diagnoses / Procedures Referred By Contac t Referred To Contact Diagnoses Encounter for antineoplastic chemotherapy Malignant neoplasm of upper-inner quadrant of left breast in female, estrogen receptor negative (HCC) Procedures OH PALONOSETRON HCL OH CARBOPLATIN INJECTION OH INJ PEMBROLIZUMAB OH PACLITAXEL INJECTION DOXO, EMEND, CYTOXAN-TO START 01/22/24, UDENYCA TO START 01/23/24 PER TREATMENT PLAN Nas Palacios MD [address] [place] [address] Anc Hem/Onc [address] [address] Referral ID Status Reason Start Date Expiration Date V isits Requested Visits Authorized [id number] Authorized 10/27/2023 01/16/2024 999 99 Encounter Details Date Type Department Care Team (Latest Contact Info) Description 11/28/2023 11:00 AM EDT Hem/Onc Treatment Hematology/Oncolog y Treatment, [address] [address] Christina, Chair 10 Hem Onc [address] [place], [place] [address] Encounter for antineoplastic chemotherapy*; Malignant neoplasm of [...] AM EDT Chair Port accessed. No issues. hospice music therapist ANC with Dr. Palacios -- ANC today [...] 01/03/2024 8:00 AM EDT Laboratory Laboratory [facility] [place] 200 [facility] [place] [phone] Christina, Lab [facility] 200 [facility] [place] [address] 01/03/2024 9:00 AM EDT Hem/Onc Treatment Hematology/Oncology [address] [phone] Christina, Chair 6 Hem Onc [address] [place] [address] 01/10/2024 8:30 AM EDT Laboratory Laboratory [facility] [place] 200 [facility] [place] [address] Christina, Lab [facility] 200 [facility] [place] [address] 01/10/2024 9:00 AM EDT Office Visit Hematology/Oncology [facility] [place] 200 [facility] [place] [address] Alissa Roldan CRNP 400 [facility] [place] [address] 01/10/2024 9:30 AM EDT Hem/Onc Treatment Hematology/Oncology Treatment, [place] 200 [facility] [address] Christina, Chair 8 Hem Onc [facility] 200 [facility] [place] [address] 01/17/2024 1:00 PM EDT Office Visit General Surgery, [facility] [place] [address] Mariah Abdul MD [address] [place] [address] 01/31/2024 9:00 AM EDT Office Visit Hematology/Oncology [facility] [place] 200 [facility] [place] [phone] Nas Palacios MD 200 [facility] [place] [address] 02/03/2024 10:30 AM EDT Telemedicine Genetics HemOnc, [facility] [address] [place], [place] [phone] Mabel Ford, [place] [address] [place] [address] 03/16/2024 2:40 PM EDT [facility] [address] [place] [phone] Toby Bell MD [address] [place] [address] 04/10/2024 10:30 AM EST Imaging Radiology, [address] [place] [address] Health Maintenance Due Date Last Done Comments [...] this encounter Medical Devices Implanted Type Area Health Care Recruiter Device Identifier Shelf Expiration Date Model / Serial / Lot Port Power Mri W8fr Cath - [id number] Implanted:Qty: 1 on 11/02/2023 by Mariah Abdul MD at OR [facility] Right: Chest CR BARD : PERIPHERAL VASCULAR 08/20/2024 [id number] / / [id number] documented as of this encounter Visit Diagnoses [...] Documents on File Type Date Recorded 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 Question Answer Comments Discussion of Advance Directives occurred with: Patient Care Teams Chassis Engineer Relationship Specialty Start Date End Date Toby Bell MD [address] [facility] [place] [address] PCP - General Family Medicine 02/08/22 documented as of this encounter
--- OUTSIDE RECORDS SUMMARY | 2023-12-28 23:57 | External Medical Summary | Summary of Care ---
Author Name Unknown Organization [facility] Address [address] [place] [address] Phone [phone] Care Team Providers Care Catering Attendant Name Role Phone Toby Bell MD Primary Care Provider +1- [phone] Reason for Visit * Reason Comments Chemotherapy paclitaxel, carbopla tin. * Episode Based Medications (Routine) - Authorized Specialty Diagnoses / Procedures Referred By Ese medina Referred To Contact Diagnoses Encounter for antineoplastic chemotherapy Malignant neoplasm of upper-inner quadrant of left breast in female, estrogen receptor negative (HCC) Procedures HI PALONOSETRON HCL HI CARBOPLATIN INJECTION HI INJ PEMBROLIZUMAB HI PACLITAXEL INJECTION DOXO, EMEND, CYTOXAN-TO START 01/22/24, UDENYCA TO START 01/23/24 PER TREATMENT PLAN Nas Palacios MD [address] [place] [id number] Anc Hem/Onc [address] [address] Referral ID Status Reason Start Date Expiration Date V isits Requested Visits Authorized [id number] Authorized 10/27/2023 01/16/2024 999 99 Encounter Details Date Type Department Care Team (Latest Contact Info) Description 12/06/2023 9:00 AM EDT Hem/Onc Treatment Hematology/Oncolog y Treatment, [address] [address] Christina, Chair 10 Hem Onc [address] [place] [address] Encounter for antineoplastic chemotherapy*; Malignant neoplasm of [...] No 10/11/2023 Does the household have a [facility] source of income? (Household - for [...] Description 01/03/2024 8:00 AM EDT Laboratory Laboratory [facility] [place] [address] [place] [phone] Christina, Lab [facility] [address] [place] [address] 01/03/2024 9:00 AM EDT Hem/Onc Treatment Hematology/Oncology Treatment, [place] [address] [place] [phone] Christina Chair 6 Hem Onc Scen[address] [place] [address] 01/10/2024 8:30 AM EDT Laboratory Laboratory [facility] [place] [address] [place] [phone] Christina, Lab [address]enery [address] [place] [address] 01/10/2024 9:00 AM EDT Office Visit Hematology/Oncology [facility] [place] [address] [place] [phone] Alissa Roldan CRNP [address] [place] [address] 01/10/2024 9:30 AM EDT Hem/Onc Treatment Hematology/Oncology [facility] [address] [place], [place] [phone] Christina, Chair 8 Hem Onc [facility] [address] [place] [address] 01/17/2024 1:00 PM EDT Office Visit General Surgery, [facility] [address] [place] [address] Mariah Abdul MD [address] [facility] [place] [address] 01/31/2024 9:00 AM EDT Office Visit Hematology/Oncology [facility] [place] [address] [place] [phone] Nas Palacios MD [address] [place], [place] [address] 02/03/2024 10:30 AM EDT Telemedicine Genetics HemOnc, C [address] [place] [address] [place]abel [place], [place] [address] [place] [address] 03/16/2024 2:40 PM EDT Office Visit [place] [address] [facility] [address] Toby Bell MD [address] [facility] [place] [id number] 04/10/2024 10:30 AM EST Imaging Radiology, [address] [address] Health Maintenance Due Date Last Done Comments [...] this encounter Medical Devices Implanted Type Area Special Inspector Device Identifier Shelf Expiration Date Model / Serial / Lot Port Power Mri W8fr Cath - [id number] Implanted:Qty: 1 on 11/02/2023 by Mariah Abdul MD at OR [facility] Right: Chest CR BARD : PERIPHERAL VASCULAR 08/20/2024 [id number] / / [id number] documented as of this encounter Visit Diagnoses [...] at 0945, For 1 dose, Restricted per [facility] antiemetic guidelines Given 12/06/2023 9:27 AM EDT [...] Documents on File Type Date Recorded Patient Director Of Promotions Expl anation Advance Directives and Living Will 12/16/2023 signed on 12/30/1993 Power of Pipe Roller 12/16/2023 signed on 11/14/2020 * Full Code (Latest Code Status on File) Date Activated Date Inactivated Comments 11/02/2023 11:37 AM 11/02/2023 6:38 PM This order reflects the patients wishes and were consensually agreed upon. Question Answer Comments Discussion of Advance Directives occurred with: Patient Care Teams Catering Attendant Relationship Specialty Start Date End Date Toby Bell MD [address] [place] [address] PCP - General Family Medicine 02/08/22 documented as of this encounter
--- OUTSIDE RECORDS SUMMARY | 2023-12-28 23:57 | External Medical Summary ---
Author Name Unknown Address Unknown Organization K[facility] [place] [address] Laboratory Report Ordering Provider Test Date Status LEANN ROWELL 12/27/2023 09:20:39 Final Observation Date Value Abnormality Reference (Units ) Status Nucleated erythrocytes/100 leukocytes [Ratio] in Blood by Automated count 12/27/2023 09:20:39 Final Performing Location [facility] [place] [address]
--- OUTSIDE RECORDS SUMMARY | 2023-12-28 23:57 | External Medical Summary ---
Author Name Unknown Address Unknown Organization [facility] [place] [address] Laboratory Report Ordering Provider Test Date Status LEANN ROWELL 12/27/2023 09:20:39 Final Observation Date Value Abnormality Reference (Units ) Status SYNC LEUKOCYTES IN BLOOD BY AUTOMATED COUNT 12/27/2023 09:20:39 2.47 Below low normal 4.00-10.80 (K/uL) Final Segs 12/27/2023 09:20:39 79.8 Above high normal 40.0-75.0 (%) Final Lymphs % 12/27/2023 09:20:39 15.8 Below low normal 18.0-42.0 (%) Final Monos 12/27/2023 09:20:39 4.0 1.0-11.0 (%) Final Eosinophils 12/27/2023 09:20:39 0.0 0.0-6.0 (%) Final Basos 12/27/2023 09:20:39 0.4 0.0-2.0 (%) Final Absolute Segs 12/27/2023 09:20:39 1.97 1.80-7.70 (K/uL) Final Lymphs, absolute 12/27/2023 09:20:39 0.39 Below low normal 1.00-4.80 (K/ul) Final Monos, Abs 12/27/2023 09:20:39 0.10 0.00-1.10 (K/uL) Final Eos, Abs 12/27/2023 09:20:39 0.00 0.00-0.70 (K/uL) Final Basos, Abs 12/27/2023 09:20:39 0.01 0.00-0.20 (K/uL) Final Performing Location [facility] [place] [address]
--- OUTSIDE RECORDS SUMMARY | 2023-12-28 23:57 | External Medical Summary | Summary of Care ---
Author Name Unknown Organization [facility] Address [address] [place] [address] Phone [phone] Care Team Providers Care Hand Deicer Element Winder Name Role Phone Toby Bell MD Primary Care Provider +1- [phone] Reason for Visit * Reason Comments Chemotherapy C2/D1 - Keytruda, Ta xol, Carboplatin * Episode Based Medications (Routine) - Authorized Specialty Diagnoses / Procedures Referred By Contac t Referred To Contact Diagnoses Encounter for antineoplastic chemotherapy Malignant neoplasm of upper-inner quadrant of left breast in female, estrogen receptor negative (HCC) Procedures CA PALONOSETRON HCL CA CARBOPLATIN INJECTION CA INJ PEMBROLIZUMAB CA PACLITAXEL INJECTION DOXO, EMEND, CYTOXAN-TO START 01/22/24, UDENYCA TO START 01/23/24 PER TREATMENT PLAN Nas Palacios MD [address] [place] [address] Anc Hem/Onc [address] [address] Referral ID Status Reason Start Date Expiration Date V isits Requested Visits Authorized [id number] Authorized 10/27/2023 01/16/2024 999 99 Encounter Details Date Type Department Care Team (Latest Contact Info) Description 11/28/2023 11:00 AM EDT Hem/Onc Treatment Hematology/Oncolog y Treatment, [address] [address] Christina, Chair 10 Hem Onc Scen[address] [place], [place] [address] Encounter for antineoplastic chemotherapy*; Malignant neoplasm of [...] AM EDT Chair Port accessed. No issues. claim review medical director ANC with Dr. Palacios -- ANC today [...] Description 01/03/2024 8:00 AM EDT Laboratory Laboratory [facility] [place] [address] [facility] [place] [phone] Christina, Lab [facility] [address] [facility] [place] [address] 01/03/2024 9:00 AM EDT Hem/Onc Treatment Hematology/Oncology [address] [phone] Christina, Chair 6 Hem Onc [address] [place] [address] 01/10/2024 8:30 AM EDT Laboratory Laboratory [facility] [place] [address] [facility] [place] [address] [place], [facility] [address] [facility] [place] [address] 01/10/2024 9:00 AM EDT Office Visit Hematology/Oncology [facility] [place] [address] [facility] [place] [address] Alissa Roldan CRNP [address] [facility] [place] [address] 01/10/2024 9:30 AM EDT Hem/Onc Treatment Hematology/Oncology Treatment, [place] 200 [facility] [address] Christina, Chair 8 Hem Onc [facility] [address] [facility] [place] [address] 01/17/2024 1:00 PM EDT Office Visit General Surgery, [facility] [place] [address] Mariah Abdul MD [address] [place] [address] 01/31/2024 9:00 AM EDT Office Visit Hematology/Oncology [facility] [place] [address] [facility] [place] [phone] Nas Palacios MD [address] [facility] [place] [address] 02/03/2024 10:30 AM EDT Telemedicine Genetics [facility], [facility] [address] [place], [place] [address] [place], [place] [address] [place] [address] 03/16/2024 2:40 PM EDT [facility] [address] [place] [phone] Toby Bell MD [address] [place] [address] 04/10/2024 10:30 AM EST Imaging Radiology, [address] [place] [address] Health Maintenance Due Date Last Done Comments [...] this encounter Medical Devices Implanted Type Area Putty Worker Device Identifier Shelf Expiration Date Model / Serial / Lot Port Power Mri W8fr Cath - [id number] Implanted:Qty: 1 on 11/02/2023 by Mariah Abdul MD at OR [facility] Right: Chest CR BARD : PERIPHERAL VASCULAR 08/20/2024 [id number] / / [id number] documented as of this encounter Visit Diagnoses [...] Documents on File Type Date Recorded Patient Competitive Intelligence Manager Expl anation Advance Directives and Living Will 12/16/2023 signed on 12/30/1993 Power of Resistance Welding Machine Operator 12/16/2023 signed on 11/14/2020 * Full Code (Latest Code Status on File) Date Activated Date Inactivated Comments 11/02/2023 11:37 AM 11/02/2023 6:38 PM This order reflects the patients wishes and were consensually agreed upon. Question Answer Comments Discussion of Advance Directives occurred with: Patient Care Teams Hand Deicer Element Winder Relationship Specialty Start Date End Date Toby Bell MD [address] [facility] [place] [address] PCP - General Family Medicine 02/08/22 documented as of this encounter
--- OUTSIDE RECORDS SUMMARY | 2023-12-28 23:58 | External Medical Summary ---
Author Name Unknown Address Unknown Organization K09[facility] [place] [address] Laboratory Report Ordering Provider Test Date Status LEANN ROWELL 12/19/2023 08:21:44 Final Observation Date Value Abnormality Reference (Units ) Status SYNC LEUKOCYTES IN BLOOD BY AUTOMATED COUNT 12/19/2023 08:21:44 1.30 Below low normal 4.00-10.80 (K/uL) Final Segs 12/19/2023 08:21:44 66.1 40.0-75.0 (%) Final Lymphs % 12/19/2023 08:21:44 27.7 18.0-42.0 (%) Final Monos 12/19/2023 08:21:44 5.4 1.0-11.0 (%) Final Eosinophils 12/19/2023 08:21:44 0.0 0.0-6.0 (%) Final Basos 12/19/2023 08:21:44 0.8 0.0-2.0 (%) Final Absolute Segs 12/19/2023 08:21:44 0.86 Below low normal 1.80-7.70 (K/uL) Final Lymphs, absolute 12/19/2023 08:21:44 0.36 Below low normal 1.00-4.80 (K/ul) Final Monos, Abs 12/19/2023 08:21:44 0.07 0.00-1.10 (K/uL) Final Eos, Abs 12/19/2023 08:21:44 0.00 0.00-0.70 (K/uL) Final Basos, Abs 12/19/2023 08:21:44 0.01 0.00-0.20 (K/uL) Final Performing Location [facility] [place] [address]
--- OUTSIDE RECORDS SUMMARY | 2023-12-28 23:58 | External Medical Summary ---
Author Name Unknown Address Unknown Organization [facility] [address] [place] [address] Laboratory Report Ordering Provider Test Date Status LEANN ROWELL 12/27/2023 09:20:39 Final Observation Date Value Abnormality Reference (Units ) Status BUN 12/27/2023 09:20:39 18 6-20 (mg/dL) Final Creatinine 12/27/2023 09:20:39 0.7 0.5-1.0 (mg/dL) Final Glomerular filtration rate/1.73 sq M.predicted [Volume Rate/Area] in Serum, Plasma or Blood by Creatinine-based formula (CKD-EPI) 12/27/2023 09:20:39 85 >=60 (mL/min) Final eGFR is calculated based on the CKD-EPI 2020 equation. Sodium 12/27/2023 09:20:39 139 135-146 (m mol/L) Final Potassium 12/27/2023 09:20:39 4.6 3.5-5.1 (m mol/L) Final Cl 12/27/2023 09:20:39 104 98-107 (mm ol/L) Final CO2 12/27/2023 09:20:39 22 22-32 (mmo l/L) Final Anion gap 12/27/2023 09:20:39 13 7-15 (mmol /L) Final Glucose 12/27/2023 09:20:39 188 Above high normal 70 -120 (mg/dL) Final Albumin 12/27/2023 09:20:39 4.1 3.8-5.0 (g /dL) Final AST (Aspartate aminotransferase) 12/27/2023 09:20:39 23 10-35 (U/L) Fin al Alk Phos 12/27/2023 09:20:39 73 35-130 (U/ L) Final Bilirubin, Total 12/27/2023 09:20:39 0.4 <=1 .2 (mg/dL) Final Calcium 12/27/2023 09:20:39 9.6 8.4-10.2 ( mg/dL) Final Protein 12/27/2023 09:20:39 7.1 6.0-8.3 (g /dL) Final ALT (Alanine aminotransferase) 12/27/2023 09:20:39 19 10-35 (U/L) Octavio lo Performing Location [facility] [address] [place] [address]
--- OUTSIDE RECORDS SUMMARY | 2023-12-28 23:58 | External Medical Summary | Summary of Care ---
Author Name Unknown Organization [facility] Address [address] [place] [address] Phone [phone] Care Team Providers Care Barrel Washer Name Role Phone Toby Bell MD Primary Care Provider +1- [phone] Reason for Visit * Reason Comments Chemotherapy Hold chemo Encounter Details Date Type Department Care Team (Late st Contact Info) Description 12/19/2023 9:15 AM EDT Hem/Onc Treatment Hematology/Oncology Treatment, [place] [address] [place] [address] Christina, Chair 11 Hem Onc [address] [place] [address] Arrived Allergies Active Allergy Reactions Criticality Noted Date Comments Guaifenesin & Derivatives 10/11/2000 Daily--hives Lisinopril Edema face/lips/tongue High 08/05/2021 documented as of this encounter (statuses as of 12/19/2023) Medications Medication Sig Dispensed Refills Start Date [...] hours before chemotherapy 40 Tablet 10/26/2023 Active Lidocaine-Prilocai ne 2.5-2.5 % External Cream (Emla)Indications: [...] and 1 Tablet before bedtime. 12/14/2023 Active documented as of this encounter (statuses as of 12/19/2023) Active Problems Problem Noted Date Diagnosed Date [...] as of this encounter (statuses as of 12/19/2023) Immunizations Name Administration Dates Next Due COVID-19 [...] the money to buy more. Never true 12/14/19 Within the past 12 months, t he food you bought just didn't last and you didn't have money to get more. Never true 12/14/2023 Childcare Answer Date Recorded Do you feel overwhelmed with taking care of a child, family member or friend? No 12/14/2023 Does your family need help f inding childcare? (Household - for ages 0-17 years) Not on file 12/14/2023 Clothing Answer Date Recorded Have you been unable to get clothing when it was really needed? No 12/14/2023 Is your family able to get c lothes or diapers when needed? (Household - for ages 0-17 years) Not on file 12/14/2023 Personal Safety Answer Date Recorded Do you feel unsafe or have concerns for your saf ety? No 12/14/2023 Do you have concerns for you r family's safety? (Household - for ages 0-17 years) Not on file 12/14/2023 Utilities Answer Date Recorded Do you have trouble paying y our heating, water, or electric bill? No 12/14/2023 Is your family able to pay t he heat, water, or electric bill? (Household - for ages 0-17 years) Not on file 12/14/2023 Does your family have access to good internet? (Household - for ages 0-17 years) Not on file 12/14/2023 Employment Status Answer Date Recorded Are you unemployed or without regular income? No 12/14/2023 Does the household have a re gular source of income? (Household - for ages 0-17 years) Not on file 12/14/2023 Social Connections Answer Date Recorded How often do you feel lonely or isolated from th ose around you? Never 12/14/2023 Financial Resource Strain Answer Date R ecorded Do you have any trouble payi ng for your medications, or do you think you might in the future? No 12/14/2023 Does your family have troubl e paying for medicine? (Household - for ages 0-17 years) Not on file 12/14/2023 Transportation Needs Answer Date Record ed READ ONLY Do you have troubl e getting a ride to medical visits or work? Never True 12/14/2023 Does your family have a hard time getting a ride to doctors visits? (Household - for ages 0-17 years) Not on file 12/14/2023 Has lack of transportation k ept you from medical appointments, meetings, work, or from getting things needed for daily living? Check all that apply. No 12/14/2023 Do you (or your family) have trouble finding or paying for a ride (transportation)? (Household - for ages 0-17 years) Not on file 12/14/2023 Housing Stability Answer Date Recorded Do you currently live in a s helter or have no steady place to sleep at night? No 12/14/2023 READ ONLY Do you think you a re at risk of becoming homeless? No 12/14/2023 Does your family worry about paying for your home or becoming homeless? (Household - for ages 0-17 years) Not on file 0 12/14/2023 Are you homeless or worried that you might be in the future? No 12/14/2023 Are you (or your family) eli eless or worried that you might be in the future? (Household - for ages 0-17 years) Not on file Food Insecurity Answer Date Recorded Do you need food for this week? No 12/14/2023 Are you able to get enough f ood for your family? (Household - for ages 0-17 years) Not on file 12/14/2023 Does your family need food t his week? (Household - for ages 0-17 years) Not on file 12/14/2023 Do you always have enough fo od for your family? (Household - for ages 0-17 years) Not on file 12/14/2023 Sex and Gender Information Value Date Recorded Sex Assigned at Female 10/11/2023 1:22 PM EDT Gender Identity Female 10/11/2023 1:22 PM EDT Sexual Orientation Straight 10/11/2023 1: 22 PM EDT Job Start Date Occupation Industry Not on file Not on file Not on file documented as of this encounter Nursing Notes * Kenyatta Horne RN - 12/19/2023 9:33 AM EDT Patient saw Dr. Palacios today -- see OV note for details. Per Dr. Palacios, will hold chemo today. ANC is 0.86. Treatment was held last week as well, see nurse note last week. Chemo will be dose reduced per Dr. Palacios's note. Patient has f/u with [facility] in 3 weeks and will return back next week for chemo. documented in this encounter Plan of Treatment Upcoming Encounters Date Type Department Care Team (Late st Contact Info) Description 12/21/2023 8:00 AM EDT Home Visit Care Coordination and Integration [address] [place] [facility] [place] [address] Cyn Henley, [facility] Staker [address] [place] [facility] [place] [address] 12/27/2023 9:10 AM EDT Laboratory Laboratory [facility] Adriano Garcia [address] [place] [address] [phone] Basilio Vasquez [address] [place] [address] [address] 12/27/2023 10:15 AM EDT Hem/Onc Treatment Hematology/Oncology Treatment, [place] [address] [place] [phone] Park, Chair 8 Hem Onc [address] [place] [address] 01/03/2024 8:00 AM EDT Laboratory Laboratory [facility] [place] [address] [place], [place] [phone] Christina, Lab [address]enery [address] [place], [place] [address] 01/03/2024 9:00 AM EDT [facility] 200 [facility], [place] [phone] Christina, Chair 6 Hem Onc [address] [place], [place] [address] 01/10/2024 8:30 AM EDT Laboratory Laboratory [facility] [place] [address] [place], [place] [phone] Christina, Lab [address]en[address] [facility] [place] [place] [address] 01/10/2024 9:00 AM EDT Office Visit Hematology/Oncology [facility] [place] [address] [place], [place] [phone] Alissa Roldan CRNP [address] [facility] [place] [address] 01/10/2024 9:30 AM EDT [facility] 200 [facility] [place] [address] Christina, Chair 9 Hem Onc [address] [place], [place] [address] 01/31/2024 9:00 AM EDT Office Visit Hematology/Oncology [facility] [place] [address] [place], [place] [phone] Nas Palacios MD [address] [place] [address] 02/03/2024 10:30 AM EDT Telemedicine Genetics [facility], [facility] [address] [place] [address] [place]abel [place], [place] [address] [place] [address] 03/16/2024 2:40 PM EDT Office Visit Family Practice, [place] [address] [place] [address] Toby Bell MD [address] [place] [address] 04/10/2024 10:30 AM EST Imaging Radiology, [address] [address] Health Maintenance Due Date Last Done Comments [...] encounter Medical Devices Implanted Type Area Health Tech Device Identifier Shelf Expiration Date Model / Serial / Lot Port Power Mri W8fr Cath - [id number] Implanted:Qty: 1 on 11/02/2023 by Mariah Abdul MD at [facility] Right: Chest CR BARD : PERIPHERAL VASCULAR 08/20/2024 [id number] / / [id number] documented as of this encounter Advance Directives Documents on File Type Date Recorded Patient Ladies Attendant Expl anation Advance Directives and Living Will 12/16/2023 signed on 12/30/1993 Power of Health Tech 12/16/2023 signed on 11/14/2020 * Full Code (Latest Code Status on File) Date Activated Date Inactivated Comments 11/02/2023 11:37 AM 11/02/2023 6:38 PM This order reflects the patients wishes and were consensually agreed upon. Question Answer Comments Discussion of Advance Directives occurred with: Patient Care Teams Barrel Washer Relationship Specialty Start Date End Date Toby Bell MD [address] [place] [address] PCP - General Family Medicine 02/08/22 documented as of this encounter
--- OUTSIDE RECORDS SUMMARY | 2023-12-28 23:58 | External Medical Summary ---
Author Name Unknown Address Unknown Organization K09:[facility] [place] [address] Laboratory Report Ordering Provider Test Date Status LEANN ROWELL 12/27/2023 09:20:39 Final Observation Date Value Abnormality Reference (Units ) Status WBC, Total 12/27/2023 09:20:39 2.47 Below low normal 4. 00-10.80 (K/uL) Final RBC 12/27/2023 09:20:39 3.92 3.85-5.15 (M/uL) Final Hemoglobin 12/27/2023 09:20:39 12.8 12.0-15.3 (g/dL) Final HCT 12/27/2023 09:20:39 39.1 36.0-45.2 (%) Final MCV 12/27/2023 09:20:39 99.7 81.5-97.5 (fL) Final MCH 12/27/2023 09:20:39 32.7 27.0-34.0 (pg) Final MCHC 12/27/2023 09:20:39 32.7 32.0-36.0 (g/dL) Final RDW 12/27/2023 09:20:39 18.1 11.5-15.5 (%) Final Platelets 12/27/2023 09:20:39 206 140-400 (K /uL) Final MPV 12/27/2023 09:20:39 9.6 6.6-11.1 ( fL) Final Performing Location [facility] [place] [address]
--- OUTSIDE RECORDS SUMMARY | 2023-12-28 23:58 | External Medical Summary | Summary of Care ---
Author Name Unknown Organization [facility] Address [address] [place] [address] Phone [phone] Care Team Providers Care Railroad Crossing Protection Maintainer Name Role Phone Toby Bell MD Primary Care Provider +1- [phone] Reason for Visit * Reason Comments Outpatient Testing Encounter Details Date Type Department Care Team (Late st Contact Info) Description 12/12/2023 10:00 AM EDT Laboratory Laboratory [place] [address] [place] [address] [facility] Lab Scenery [address] [place] [address] Malignant neoplasm of upper-inner quadrant of left breast in female, estrogen receptor negative (HCC) Allergies Active Allergy Reactions Criticality Noted Date Comments Guaifenesin & Derivatives 10/11/2000 Daily--hives Lisinopril Edema face/lips/tongue High 08/05/2021 documented as of this encounter (statuses as of 12/12/2023) Medications Medication Sig Dispensed Refills Start Date [...] as of this encounter (statuses as of 12/12/2023) Active Problems Problem Noted Date Diagnosed Date [...] as of this encounter (statuses as of 12/12/2023) Immunizations Name Administration Dates Next Due COVID-19 [...] Team (Late st Contact Info) Description 12/12/2023 11:00 AM EDT Hem/Onc Treatment Hematology/Oncology Treatment, [place] 200 [facility] [place]ha [place] [phone] Christina, Chair [address] [facility] [address] [place] [address] Arrived 12/15/2023 11:20 AM EDT Office Visit [facility] [address] [place] [address] Toby Bell MD [address] [place] [address] 12/20/2023 8:00 AM EDT Laboratory Laboratory [place] [address] [place] [address] [phone] Christina, Lab [facility] [address] [facility] [place] [address] 12/20/2023 9:00 AM EDT Hem/Onc Treatment Hematology/Oncology Treatment, [place] [address] [place] [phone] Christina, Chair 6 Hem Onc [facility] [address] [place] [address] [address] 12/27/2023 9:10 AM EDT Laboratory Laboratory [place] [address] [phone] Christina, Lab Scenery [address] [place] [address] 12/27/2023 10:15 AM EDT Hem[facility], [place] [address] Park, Chair 8 Hem Onc Scenery [address] [place] [address] 01/03/2024 8:00 AM EDT Laboratory Laboratory [facility] [place] [address] [place], [place] [address] Christina, Lab Scenery [address] [place], [place] [address] 01/03/2024 9:00 AM EDT Hem[facility], [place] [address] Christina, Chair 6 Hem Onc Scenery [address] [place] [address] 01/10/2024 8:30 AM EDT Laboratory Laboratory [facility] [place] [address] [place], [place] [address] Christina, Lab Scenery [address] [place], [place] [address] 01/10/2024 9:00 AM EDT Office Visit Hematology/Oncology [facility] [place] [address] [place] [address] Alissa Roldan CRNP [address] [place] [address] [place] [address] 01/10/2024 9:30 AM EDT Hem[facility]Onc [facility] [place] [address] Christina, Chair 9 Hem Onc Scenery [address] [place] [address] 01/31/2024 9:00 AM EDT Office Visit Hematology/Oncology Bree Vasquez [place] 200 [facility] [place] [phone] Nas Palacios MD [address] [place] [address] 02/03/2024 10:30 AM EDT Telemedicine Genetics HemOnc, [facility] [address] [place] [address] Mabel Ford, [place] [address] [place] [address] 03/16/2024 2:40 PM EDT Office Visit [facility] [address] [place] [phone] Toby Bell MD [address] [place] [address] 04/10/2024 10:30 AM EST Imaging Radiology, [address] [place] [address] Pending Results Name Type Priority Associated Diagnoses Date /Time CBC WITH WBC DIFFERENTIAL Lab STAT Malignant neoplasm of upper-inner quadrant of left breast in female, estrogen receptor negative (HCC) 12/12/2023 10:34 AM EDT COMPREHENSIVE METABOLIC PANEL Lab STAT Malignant neoplasm of upper-inner quadrant of left breast in female, estrogen receptor negative (HCC) 12/12/2023 10:34 AM EDT CBC Lab STAT Malignant neoplasm of upper-inner quadrant of left breast in female, estrogen receptor negative (HCC) 12/12/2023 10:34 AM EDT DIFFERENTIAL, AUTOMATED Lab STAT Malignant neoplasm of upper-inner quadrant of left breast in female, estrogen receptor negative (HCC) 12/12/2023 10:34 AM EDT Health Maintenance Due Date Last [...] this encounter Medical Devices Implanted Type Area Lead Janitor Device Identifier Shelf Expiration Date Model / Serial / Lot Port Power Mri W8fr Cath - [id number] Implanted:Qty: 1 on 11/02/2023 by Mariah Abdul MD at OR [facility] Right: Chest CR BARD : PERIPHERAL VASCULAR 08/20/2024 [id number] / / [id number] documented as of this encounter Visit Diagnoses [...] Advance Directives occurred with: Patient Care Teams Railroad Crossing Protection Maintainer Relationship Specialty Start Date End Date Toby Bell MD [address] [facility] [address] PCP - General Family Medicine 02/08/22 documented as of this encounter
--- OUTSIDE RECORDS SUMMARY | 2023-12-28 23:58 | External Medical Summary | Summary of Care ---
Author Name Unknown Organization [facility] Address [address] [place] [address] Phone [phone] Care Team Providers Care Plant Operations Worker Name Role Phone Toby Bell MD Primary Care Provider +1- [phone] Encounter Details Date Type Department Care Team (Late st Contact Info) Description 12/12/2023 Orders Only Hematology/Oncology [facility] [place] [address] [place] [phone] Nas Palacios MD [address] [place] [address] Allergies Active Allergy Reactions Criticality Noted Date [...] Care Team (Late st Contact Info) Description 12/15/2023 11:20 AM EDT Office Visit [facility] [address] [place] [address] Toby Bell MD [address] [place] [address] 12/19/2023 8:10 AM EDT Laboratory Laboratory [facility] Christina [place] [address] [place] [phone] Christina Lab [place] [address] [place] [address] [address] 12/19/2023 8:45 AM EDT Office Visit [facility]ology[facility]cology [facility] [address] [place] [phone] Nas Palacios MD [address] [place] [address] [address] 12/19/2023 9:15 AM EDT Hem/Onc Treatment Hematology/Oncology Treatment [place] [address] [place] [phone] Christina, Chair [address] [place] [address] 12/27/2023 9:10 AM EDT Laboratory Laboratory [place] [address] [phone] Christina Lab [place] [address] [place] [address] [address] 12/27/2023 10:15 AM EDT Hem/Onc Treatment Hematology/Oncology Treatment, [place] 200 [facility], [place] [phone] Christina, Chair 8 Hem Onc Scenery [address] [place], [place] [address] 01/03/2024 8:00 AM EDT Laboratory Laboratory [facility] [place] [address] [place], [place] [address] Christina, Lab Scenery [address] [place], [place] [address] 01/03/2024 9:00 AM EDT [facility] 200 [facility], [place] [phone] Christina, Chair 6 Hem Onc Sc[place]ery [address] [place], [place] [address] 01/10/2024 8:30 AM EDT Laboratory Laboratory [facility] [place] [address] [place], [place] [address] Christina, Lab Scenery [address] [place], [place] [address] 01/10/2024 9:00 AM EDT Office Visit Hematology/Oncology [facility] [place] [address] [place], [place] [address] Alissa Roldan CRNP [address] [facility] [place] [address] 01/10/2024 9:30 AM EDT Hem[facility]Onc [facility] 200 [facility], [place] [address] Christina, Chair 9 Hem Onc Scenery [address] [place], [place] [address] 01/31/2024 9:00 AM EDT Office Visit Hematology/Oncology Bree Vasquez [place] 200 [facility] [place], [place] [phone] Nas Palacios MD 200 [facility] [place] [address] 02/03/2024 10:30 AM EDT Telemedicine Genetics Hem[facility]c, [facility] [address] [place] [address] Mabel Ford, [place] [address] [place] [address] 03/16/2024 2:40 PM EDT Office Visit Family [facility] [address] [place] [address] Toby Bell MD [address] [place] [address] 04/10/2024 10:30 AM EST Imaging Radiology, [place] [id number] [facility] [place], [place] [address] Health Maintenance Due Date Last Done Comments DXA Scan 1940 Albumin/Creatinine Ratio 09[birth year]16/1958 COVID-19 Vaccine (3 - 2022- season) 2023 09/16/2020, 08/15/2020 HbA1c 05/06/2023 11/04/2022 Influenza Vaccine (FLU shot) (#1) 2024 03/04/2023, 02/08/2022, 02/14/2020, Additional history exists Depression Screening 10/10/2024 10/11/2023 Diabetic Foot Exam 10/10/2024 10/11/2023 Diabetic Eye Exam 10/19/2024 10/20/2023, , 10/20/2023, Additional history exists GFR 12/11/2024 12/12/2023, 11/20, 11/28/2023, Additional history exists DTaP,Tdap,and Td Vaccines (3 [...] encounter Medical Devices Implanted Type Area Business Process Specialist Device Identifier Shelf Expiration Date Model / Serial / Lot Port Power Mri W8fr Cath - [id number] Implanted:Qty: 1 on 11/02/2023 by Mariah Abdul MD at OR [facility] Right: Chest CR BARD : PERIPHERAL VASCULAR 08/20/2024 [id number] / / [id number] documented as of this encounter Advance Directives * Full Code (Latest Code Status on File) Date Activated Date Inactivated Comments 11/02/2023 11:37 AM 11/02/2023 6:38 PM This order reflects the patients wishes and were consensually agreed upon. Question Answer Comments Discussion of Advance Directives occurred with: Patient Care Teams Plant Operations Worker Relationship Specialty Start Date End Date Toby Bell MD [address] [place] [address] PCP - General Family Medicine 02/08/22 documented as of this encounter
--- OUTSIDE RECORDS SUMMARY | 2023-12-28 23:58 | External Medical Summary | Summary of Care ---
Author Name Unknown Organization [facility] Address [address] [place] [address] Phone [phone] Care Team Providers Care Fixed Income Director Name Role Phone Toby Bell MD Primary Care Provider +1- [phone] Encounter Details Date Type Department Care Team (Late st Contact Info) Description 12/15/2023 Telephone [facility] [address] [place] [address] Toby Bell MD [address] [place] [address] Allergies Active Allergy Reactions Criticality Noted Date Comments Guaifenesin & Derivatives 10/11/2000 Daily--hives Lisinopril Edema face/lips/tongue High 08/05/2021 documented as of this encounter (statuses as of 12/15/2023) Medications Medication Sig Dispensed Refills Start Date End Date Status OCUVITE OR TABS 1 TABLET DAILY 30 0 04/16/2002 Active Atorvastatin Calcium 40 MG Oral Tablet (Lipitor) Take 1 Tablet by mouth in the morning. 90 Tablet 3 10/24/2023 Active Additional Information Patient not taking.Reported on 12/14/2023 Losartan Potassium 50 MG Oral Tablet (Cozaar) [...] needed for Diarrhea. 30 Tablet 12/14/2023 Active Ciprofloxacin HCl 500 MG Oral Tablet (Cipro) Take 1 Tablet by mouth in the morning and 1 Tablet before bedtime. 12/14/2023 12/15/2023 Active Amoxicillin-Pot Clavulanate 875-125 MG Oral Tablet (Augmentin) Take 1 Tablet by mouth in the morning and 1 Tablet before bedtime. 12/14/2023 Active documented as of this encounter (statuses as of 12/15/2023) Active Problems Problem Noted Date Diagnosed Date [...] as of this encounter (statuses as of 12/15/2023) Immunizations Name Administration Dates Next Due COVID-19 [...] money to buy more. Never true 12/14/19 24 Within the past 12 months, t [...] encounter Miscellaneous Notes * Telephone Encounter - Nisha Renae OSA - 12/15/2023 11:30 AM EDT 12/15/23 Pt dropped off a copy of the following documents: Living Will and POW. Both documents were sent to [facility] to be scanned into pts chart. documented in this encounter Plan of Treatment Upcoming Encounters Date Type Department Care Team (Late st Contact Info) Description 12/19/2023 8:10 AM EDT Laboratory Laboratory Bree Vasquez [place] [address] [place] [address] [phone] [facility] [place] [address] 12/19/2023 8:45 AM EDT Office Visit Hematology/Oncology [place] [phone] Nas Palacios MD [address] [place] [address] 12/19/2023 9:15 AM EDT Hem/Onc Treatment Hematology/Oncology Treatment, [place] [address] [place] [address] Christina, Chair 11 Hem Onc Scenery [address] [place], [place] [address] 12/21/2023 8:00 AM EDT Home Visit [facility] [address] [place] [address] Cyn Henley, Community Health Recreation Supervisor [address] [place] [address] 12/27/2023 9:10 AM EDT Laboratory Laboratory [facility] Christina [place] [address] [place], [place] [address] Christina, Lab Scenery [address] [place], [place] [address] 12/27/2023 10:15 AM EDT Hem/Onc Treatment Hematology/Oncology Treatment, [place] 200 [facility], [place] [address] Christina, Chair 8 Hem Onc Scenery [address] [place], [place] [address] 01/03/2024 8:00 AM EDT Laboratory Laboratory [facility] Christina [place] [address] [place], [place] [address] Christina, Lab Scenery [address] [place], [place] [address] 01/03/2024 9:00 AM EDT Hem/Onc Treatment Hematology/Oncology Treatment, [place] 200 [facility], [place] [address] Christina, Chair 6 Hem Onc Scenery [address] [place] [address] 01/10/2024 8:30 AM EDT Laboratory Laboratory [facility] Christina [place] [address] [place], [place] [address] Christina, Lab Scenery [address] [facility] [place] [address] 01/10/2024 9:00 AM EDT Office Visit Hematology/Oncology [facility] [address] [place] [address] Alissa Roldan CRNP [address] [facility] [address] 01/10/2024 9:30 AM EDT Hem/Onc Treatment Hematology/Oncology Treatment, [place] [address] [place] [phone] Christina, Chair 9 Hem Onc [facility] 200 [facility] [place] [address] 01/31/2024 9:00 AM EDT Office Visit Hematology/Oncology [facility] [place] [address] [place] [address] Nas Palacios MD 200 [facility] [place] [address] 02/03/2024 10:30 AM EDT Telemedicine Genetics HemOnc, [facility] [address] [place] [address] Mabel Ford, [place] [address] [place] [address] 03/16/2024 2:40 PM EDT Office Visit [facility] [address] [place] [address] Toby Bell MD [address] [place] [address] 04/10/2024 10:30 AM EST Imaging Radiology, [address] [place] [address] Health Maintenance Due Date Last Done Comments DXA Scan 1939 Albumin/Creatinine Ratio 09/16/1957 COVID-19 Vaccine ( season) 2023 09/16/2020, 08/15/2020 HbA1c 05/06/2023 11/04/2022 Influenza Vaccine (FLU shot) (#1) 2024 03/04/2023, 02/08/2022, 02/14/2020, Additional history exists Diabetic Foot Exam 10/10/2024 10/11/2023 Diabetic Eye Exam 10/19/2024 10/20/2023, , 10/20/2023, Additional history exists GFR 12/11/2024 12/12/2023, 11/20, 11/28/2023, Additional history exists Depression Screening 12/13/2024 12/14/2023, 10/11/19 DTaP,Tdap,and Td Vaccines (3 - Td or [...] this encounter Medical Devices Implanted Type Area Bench Assembly Inspector Device Identifier Shelf Expiration Date Model / Serial / Lot Port Power Mri W8fr Cath - [id number] Implanted:Qty: 1 on 11/02/2023 by Mariah Abdul MD at OR [facility] Right: Chest CR BARD : PERIPHERAL VASCULAR 08/20/2024 [id number] / / [id number] documented as of this encounter Advance Directives * Full Code (Latest Code Status on File) Date Activated Date Inactivated Comments 11/02/2023 11:37 AM 11/02/2023 6:38 PM This order reflects the patients wishes and were consensually agreed upon. Question Answer Comments Discussion of Advance Directives occurred with: Patient Care Teams Fixed Income Director Relationship Specialty Start Date End Date Toby Bell MD [address] [facility] [place] [id number] PCP - General Family Medicine 02/08/22 documented as of this encounter
--- OUTSIDE RECORDS SUMMARY | 2023-12-28 23:58 | External Medical Summary | Summary of Care ---
Author Name Unknown Organization [facility] Address [address] [place] [address] Phone [phone] Care Team Providers Care Point Of Sale Associate Name Role Phone Toby Blel MD Primary Care Provider +1- [phone] Encounter Details Date Type Department Care Team (Late st Contact Info) Description 12/15/2023 Telephone [facility] [address] [place] [address] Toby Bell MD [address] [place] [address] Allergies Active Allergy Reactions Criticality [...] Encounter - Nisha Renae OSA - 12/15/2023 11:46 AM EDT 12/15/23 Pt came in to check in for appt. Ted was waiting with pt at door and saw board that provider was behind and swore. Pt came to desk to check-in and PAR informed them that PCP was 90 minutes behind and Ted starting yelling, why were we not called. He turned to pt and stated we are not sitting in here for 90 minutes so you can pick something up from another pt. Ted asked if they could come back and PAR stated they could leave, but if the pt was called and they were not present, appt could be lost and or they would be waiting longer until provider was finished with pt? Ted was upset due to pt having cancer and PAR understood that, but no reason to be rude and yelling. PAR talked to Head Nurse stated that if pt leaves they may lose their appt. PAR called ted and relayed the message to be back to the office before the 05/24 to insure they do not lose their appt. documented in this encounter Plan of Treatment Upcoming Encounters Date Type Department Care Team (Late st Contact Info) Description 12/19/2023 8:10 AM EDT Laboratory Laboratory [facility] [place] [address] [place], [place] [phone] Christina, Lab Scenery [address] [place], [place] [address] 12/19/2023 8:45 AM EDT Office Visit Hematology/Oncology [facility] Christina [place] [address] [place], [place] [address] Nas Palacios MD [address] [place], [place] [address] 12/19/2023 9:15 AM EDT Hem/Onc Treatment Hematology/Oncology Treatment, [place] 200 [facility], [place] [phone] Christina, Chair 11 Hem Onc Scenery [address] [place], [place] [address] 12/21/2023 8:00 AM EDT Home Visit Care Coordination and Integration [address] [place] [address] Cyn Henley [facility] Expediter [address] [place] [address] 12/27/2023 9:10 AM EDT Laboratory Laboratory Bree Vasquez [place] [address] [place] [phone] Christina, Lab Scenery [address] [place], [place] [address] 12/27/2023 10:15 AM EDT Hem/Onc Treatment Hematology/Oncology Treatment, [place] 200 [facility], [place] [address] Christina, Chair 8 Hem Onc Scenery [address] [place], [place] [address] 01/03/2024 8:00 AM EDT Laboratory Laboratory Bree Vasquez [place] [address] [place] [phone] Christina, Lab Scenery [address] [place], [place] [address] 01/03/2024 9:00 AM EDT Hem[facility] 200 [facility], [place] [address] Christina, Chair 6 Hem Onc [facility] [address] [place], [place] [address] 01/10/2024 8:30 AM EDT Laboratory Laboratory [facility] [place] [address] [place], [place] [phone] hCristina, Lab [facility] [address] [facility] [place], [place] [address] 01/10/2024 9:00 AM EDT Office Visit Hematology/Oncology [facility] [address] [place], [place] [phone] Alissa Roldan CRNP [address] [place] [address] 01/10/2024 9:30 AM EDT Hem/Onc Treatment [facility]/Oncology [facility] 200 [facility], [place] [address] Christina, Chair 9 Hem Onc [facility] 200 [facility] [place], [place] [address] 01/31/2024 9:00 AM EDT Office Visit Hematology/Oncology [facility] [place] [address] [place], [place] [address] Nas Palacios MD [address] [place], [place] [address] 02/03/2024 10:30 AM EDT Telemedicine Genetics HemOnc, [facility] [address] [place] [address] Mabel Ford, [place] [address] [place] [address] 03/16/2024 2:40 PM EDT Office Visit Family [facility] [address] [place] [place] [place] [address] Toby Bell MD [address] [place] [address] 04/10/2024 10:30 AM EST Imaging Radiology, [facility] [address] [facility] [address] Health Maintenance Due Date Last Done Comments [...] exists Depression Screening 12/13/2024 12/14/2023, 10/11/19 24 DTaP,Tdap,and Td Vaccines (3 - Td or [...] this encounter Medical Devices Implanted Type Area Casualty Claims Supervisor Device Identifier Shelf Expiration Date Model / Serial / Lot Port Power Mri W8fr Cath - [id number] Implanted:Qty: 1 on 11/02/2023 by Mariah Abdul MD at OR [facility] Right: Chest CR BARD : PERIPHERAL VASCULAR 08/20/2024 [id number] / / [id number] documented as of this encounter Advance Directives * Full Code (Latest Code Status on File) Date Activated Date Inactivated Comments 11/02/2023 11:37 AM 11/02/2023 6:38 PM This order reflects the patients wishes and were consensually agreed upon. Question Answer Comments Discussion of Advance Directives occurred with: Patient Care Teams Point Of Sale Associate Relationship Specialty Start Date End Date Toby Bell MD [address] [place], [place] [phone] PCP - General Family Medicine 02/08/22 documented as of this encounter
--- OUTSIDE RECORDS SUMMARY | 2023-12-28 23:58 | External Medical Summary | Summary of Care ---
Author Name Unknown Organization [facility] Address [address] [place] [address] Phone [phone] Care Team Providers Care Hha Name Role Phone Toby Bell MD Primary Care Provider [phone]- [phone] Reason for Visit * Reason Comments Chemotherapy Hold Taxol/Carbo Encounter Details Date Type Department Care Team (Late st Contact Info) Description 12/12/2023 11:00 AM EDT Hem/Onc Treatment Hematology/Oncology Treatment, [place] [address] [place] [address] Christina, Chair 6 Hem Onc Scenery [address] [place] [address] Allergies Active Allergy Reactions Criticality Noted Date [...] Sign Reading Time Taken Comments Blood Pressure 135/68 12/12/2023 10:56 AM EDT Pulse 90 12/12/2023 10:56 AM EDT Temperature 36.4 C (97.6 F) 12/12/2023 10:56 AM E DT Respiratory Rate 18 12/12/2023 10:56 AM EDT Oxygen Saturation 95% 12/12/2023 10:56 AM EDT Inhaled Oxygen Concentration - - Weight 60 kg (132 lb 3.2 oz) 12/12/2023 10:56 AM EDT Height - - Body Mass Index 20.71 11/02/2023 11:54 AM EDT documented in this encounter Nursing Notes * Kenyatta Horne, RN - 12/12/2023 12:18 PM EDT Chair 10. Patient arrived today for her C2/D15 - Taxol/Carbo. In previous TE, her grandson had called in to tell us the patient was not feeling well at all. Patient was reportedly sleeping is a bed that was full of feces and had a trail of feces leading to the bed on the floor. Patient had a lot of diarrhea,was very cold, felt very bad, and was very fatigued from trying to clean up the mess, and she did not have the energy to get back out of bed to even clean up herself with the help of her grandson. EMS was called and patient was taken to [facility] ER. Patient was discharged from [facility] on Tuesday evening 12/09. She was ordered 2 abx to take x4 days: Ciprofloxacin and Augmentin (should be complete with abx course on 12/13). Overall patient says she is feeling better now and "feels okay for treatment." Labs today showed increased LFTs (AST/ALT 53/55). ANS is okay for tx but still slightly low. Last week her ANC was 1.64 and today ANC is 1.66). While at [facility], her ANC was down to 0.47 from what RN reviewed. Patient states Alissa RoldanBO had told her to stop taking her atorvastatin because this couldbe elevating her LFTs. Patient has not been taking the atorvastatin now for about 1 week, but LFTs have increased further. RN reviewed all of the above documented with Dr. Palacios via TT. Per Dr. Palacios, will delay patient's tx until next week and he would like to see patient next week before her treatment. Patient scheduled for next week for C2/D15 - Taxol/Carbo and has a f/u scheduled with Dr. Palacios next week as well. Patient's grandson, Toby, also expressed after what happened this past week that he was wondering if it were possible to have someone come to visit with the patient or check in on her daily or a fewtimes per week. He lives in [place] and does need to go back home at times and sometimes he may notbe there with her. Overall he has been staying with her but is not always able to be there. He said if he was not there the day that happened, he is not sure he would have known about it or he is worried about what could have happened with he was not there. He feels he would get more comfort if someone with some medical background or medical knowledge was able to check in on her instead. RN informed grandson that this could be possible and to try reaching out to [facility] as a possible option. He was informed this may not be covered by insurance. He does visit with patient's PCP Dr. Bell on 12/14, this week, and he was encouraged to still ask him about any possibilities he may know about to have this done for patient. He communicated understanding regarding this. Patient left facility in stable condition at this time with he grandson and they both denied any further question, concerns, or needs. documented in this encounter Plan of Treatment Upcoming Encounters Date Type Department Care Team (Late st Contact Info) Description 12/15/2023 11:20 AM EDT Office Visit [facility] [address] [facility] [place] [phone] Toby Bell MD [address] [place] [facility] [place] [address] 12/19/2023 8:10 AM EDT Laboratory Laboratory [facility] [place] [address] [place] [phone] Christina, Lab Scenery [address] [place], [place] [address] 12/19/2023 8:45 AM EDT Office Visit Hematology/Oncology [facility] [place] [address] [place], [place] [address] Nas Palacios MD [address] [place] [address] 12/19/2023 9:15 AM EDT [facility] [address] [facility], [place] [phone] Christina, Chair 5 Hem Onc Scenery [address] [place], [place] [address] 12/27/2023 9:10 AM EDT Laboratory Laboratory [facility] Christina [place] [address] [place], [place] [phone] Christina, Lab Scenery [address] [facility] [place], [place] [address] 12/27/2023 10:15 AM EDT Hem/Onc Treatment Hematology/Oncology Treatment, [place] [address] [facility], [place] [phone] Christina, Chair 8 Hem Onc Scenery [address] [place], [place] [address] 01/03/2024 8:00 AM EDT Laboratory Laboratory [facility] [place] [address] [place], [place] [address] Christina, Lab Scenery [address] [place], [place] [address] 01/03/2024 9:00 AM EDT [facility] [address] [place], [place] [address] Christina, Chair 6 Hem Onc [facility] [address] [place], [place] [address] 01/10/2024 8:30 AM EDT Laboratory Laboratory [facility] [place] [address] [place] [address] Christina, Lab [facility] [address] [facility] [place], [place] [address] 01/10/2024 9:00 AM EDT Office Visit Hematology/Oncology [facility] [place] [address] [place], [place] [phone] Alissa Roldan CRNP [address] [place] [address] 01/10/2024 9:30 AM EDT Hem[facility]c [facility] [address] [facility], [place] [address] Christina, Chair 9 Hem Onc [facility] [address] [facility] [place], [place] [address] 01/31/2024 9:00 AM EDT Office Visit Hematology/Oncology [facility] [place] [address] [place] [phone] Nas Palacios MD [address] [place], [place] [address] 02/03/2024 10:30 AM EDT Telemedicine Genetics HemOnc, [facility] [address] [place] [address] Mabel Ford, [place] [address] [place] [address] 03/16/2024 2:40 PM EDT Office Visit [facility] [address] [place] [address] Toby Bell MD [address] [place] [address] 04/10/2024 10:30 AM EST Imaging Radiology, [address] [place] [address] Health Maintenance Due Date Last Done Comments [...] this encounter Medical Devices Implanted Type Area Screen Cutter And Trimmer Device Identifier Shelf Expiration Date Model / Serial / Lot Port Power Mri W8fr Cath - [id number] Implanted:Qty: 1 on 11/02/2023 by Mariah Abdul MD at [facility] Right: Chest CR BARD : PERIPHERAL VASCULAR 08/20/2024 [id number] / / [id number] documented as of this encounter Advance Directives * Full Code (Latest Code Status on File) Date Activated Date Inactivated Comments 11/02/2023 11:37 AM 11/02/2023 6:38 PM This order reflects the patients wishes and were consensually agreed upon. Question Answer Comments Discussion of Advance Directives occurred with: Patient Care Teams Hha Relationship Specialty Start Date End Date Toby Bell MD [address] [facility] [address] PCP - General Family Medicine 02/08/22 documented as of this encounter
--- OUTSIDE RECORDS SUMMARY | 2023-12-28 23:58 | External Medical Summary | Summary of Care ---
Author Name Unknown Organization [facility] Address [address] [place] [address] Phone [phone] Care Team Providers Care Online Merchant Name Role Phone Toby Bell MD Primary Care Provider [phone]- [phone] Reason for Visit * Reason Comments Chemotherapy Follow Up Encounter Details Date Type Department Care Team (Late st Contact Info) Description 12/19/2023 8:45 AM EDT Office Visit Hematology/Oncology [facility] [address] [facility] [place] [address] Nas Palacios MD [address] [place] [address] Malignant neoplasm of upper-inner quadrant of left [...] 12/14/2023 Does the household have a re lar [...] Sign Reading Time Taken Comments Blood Pressure 145/83 12/19/2023 8:39 AM EDT Pulse 109 12/19/2023 8:39 AM EDT Temperature 36.6 C (97.8 F) 12/19/2023 8:39 AM ED T Respiratory Rate - - Oxygen Saturation 93% 12/19/2023 8:39 AM EDT Inhaled Oxygen Concentration - - Weight 59.9 kg (132 lb) 12/19/2023 8:39 AM EDT Height - - Body Mass Index 20.67 12/15/2023 12:30 PM EDT documented in this encounter Progress Notes * Nas Palacios MD - 12/19/2023 9:00 AM EDT Outpatient Consult Note Data Source: Patient, [facility] record. Data Source: Patient, Epic record. 12/19/2023 9:00 AM Humaira Stack [id number] 83 year old Patient Encounter: HEMATOLOGY/ONCOLOGY [facility] Cancer Diagnosis: Malignant neoplasm of upper-inner quadrant of left breast in female. ER is weakly positive (1% nuclear positive), AZ and HER2 Angelita negative. Patient has clinically staging cT2 cN0 MX disease. Current Treatment: On neoadjuvant chemotherapy including carboplatin plus paclitaxel plus Keytruda followed by AC plusKeytruda Previous Treatment: None Oncologic History : 83-year-old female with history significant for hypertension and prediabetic and hyperlipidemia referred with the about diagnosis. She had episode of fall in October and during this she noticed mass in the left breast. She had diagnostic mammogram and ultrasound done on 10/03/2023 [...] weakly positive with 1% nuclear positivity and AZ negative and HER2 Angelita negative. Final Diagnosis A. Left breast, 10 o'clock 7 cm from the nipple, needle core biopsy: -- Invasive mammary carcinoma, grade 3. -- See comment. 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 Father was diagnosed of multiple sclerosis Interval History: Overall clinically she is stable and feeling better. She had issue last week with generalized weakness and fatigue and diarrhea and was seen in the ED. she was treated with empiric antibiotics with improvement in the symptoms. Now clinically she is feeling better with improvement in the appetite and energy level. No diarrhea. She denies any headache, dizziness, chest pain palpitation abdominal pain or distention, nausea, vomiting, fever, night sweats. LABS/IMAGING: Results for orders placed or performed in visit on 12/19/23 COMPREHENSIVE METABOLIC PANEL Result Value Ref Range BUN 15 6 - 20 mg/dL Creatinine 0.6 0.5 - 1.0 mg/dL Estimated Glomerular Filtration Rate 87 >=60 mL/min Sodium 138 135 - 146 mmol/L Potassium 4.6 3.5 - 5.1 mmol/L Chloride 102 98 - 107 mmol/L CO2 23 22 - 32 mmol/L Anion Gap 13 7 - 15 mmol/L Glucose 210 (H) 70 - 120 mg/dL Albumin 3.8 3.8 - 5.0 g/dL AST 32 10 - 35 U/L Alkaline Phosphatase 64 35 - 130 U/L Bilirubin, Total 0.3 <=1.2 mg/dL Calcium 9.6 8.4 - 10.2 mg/dL Protein 6.8 6.0 - 8.3 g/dL ALT 25 10 - 35 U/L CBC Result Value Ref Range WBC 1.30 (L) 4.00 - 10.80 K/uL RBC 3.66 3.85 - 5.15 M/uL HGB 11.8 (L) 12.0 - 15.3 g/dL HCT 36.0 36.0 - 45.2 % MCV 98.4 81.5 - 97.5 fL MCH 32.2 27.0 - 34.0 pg MCHC 32.8 32.0 - 36.0 g/dL RDW 16.9 11.5 - 15.5 % PLT 188 140 - 400 K/uL MPV 9.6 6.6 - 11.1 fL DIFFERENTIAL, AUTOMATED Result Value Ref Range WBC 1.30 (L) 4.00 - 10.80 K/uL Neutrophils % 66.1 40.0 - 75.0 % Lymphocytes % 27.7 18.0 - 42.0 % Monocytes % 5.4 1.0 - 11.0 % Eosinophils % 0.0 0.0 - 6.0 % Basophils % 0.8 0.0 - 2.0 % Absolute Neutrophils 0.86 (L) 1.80 - 7.70 K/uL Absolute Lymphocytes 0.36 (L) 1.00 - 4.80 K/ul Absolute Monocytes 0.07 0.00 - 1.10 K/uL Absolute Eosinophils 0.00 0.00 - 0.70 K/uL Absolute Basophils 0.01 0.00 - 0.20 K/uL DIFFERENTIAL, TECHNOLOGIST REVIEW Result Value Ref Range nRBCs Reactive Lymphocytes Present (A) None Seen Total WBC count today is 1.3, hemoglobin 11.8 and platelet count 188 with absolute neutrophil countof 860. REVIEW OF SYSTEMS: General: No Fever, chills, [...] Hematuria or dysuria Musculoskeletal: No bone pain Psychiatric: No vegetative signs of depression Endocrine: No symptoms of hypothyroidism or hyperglycemia Hematologic: No bleeding or lymph nodes noted As mentioned above, all of the systems were reviewed in full and are unremarkable. Past Medical History: Diagnosis Date Macular degeneration [...] hours as needed for Nausea. 30 Tablet 0 Ondansetron HCl 8 MG Oral Tablet Take 1 Tablet by mouth every 8 hours as needed for Nausea. 30 Tablet 0 dexAMETHasone 4 MG Oral Tablet 12 mg (3 tab) 12 and 6 hours before chemotherapy 40 Tablet 0 Lidocaine-Prilocaine 2.5-2.5 % External Cream (Emla) APPLY TO SKIN OVER MEDIPORT & COVER 1HR PRIOR TO ACCESSING. 30 g 1 Loperamide HCl 2 MG Oral Tablet (Immodium (A-D)) Take 1 Tablet by mouth every 6 hours as needed forDiarrhea. 30 Tablet 0 Amoxicillin-Pot Clavulanate 875-125 MG Oral Tablet (Augmentin) Take 1 Tablet by mouth in the morning and 1 Tablet before bedtime. No current facility-administered medications for this visit. Social History Tobacco Use Smoking status: Never Passive exposure: Never Smokeless tobacco: Never Vaping Use Vaping status: Never Used Substance Use Topics Alcohol use: No Drug use: No Review of patient's allergies indicates: Allergen Reactions Lisinopril Edema face/lips/tongue Guaifenesin & Derivatives Daily--hives PHYSICAL EXAMINATION: General Appearance: Healthy appearing patient in no acute distress BP 145/83 (BP Site: Left Arm, BP Position: Sitting, BP Cuff Size: Regular) | Pulse 109 | Temp 36.6 C (97.8 F) (Tympanic) | Wt 59.9 kg (132 lb) | SpO2 93% | BMI 20.67 kg/m | BSA 1.68 m Vitals reviewed. HEENT: No oral or pharyngeal masses, ulceration or thrush noted, no sinus tenderness. Neck is supple with no thyromegaly or JVD noted. Lymph Nodes: No lymphadenopathy noted in the occipital, pre and post auricular, cervical, supra andinfraclavicular, axillary, epitrochlear, inguinal, and popliteal region. Lungs/Thorax: Clear to auscultation, no accessory muscles of respiration being used. Breast: No palpable mass in the left breast Heart: Regular rate and rhythm, normal S1, S2 Abdomen: Soft, nontender, bowel sounds present, no [...] ER is weakly positive (1% nuclear positive), AZ and HER2 Angelita negative. Patient has clinically staging cT2 cN0 MX disease. She has aggressive disease with metaplastic differentiation. ER is weakly positive and AZ and HER2 Angelita negative. This type of tumor is considered triple negative and because of the aggressive behavior chemotherapy is indicated. The benefit of neoadjuvant chemotherapy include evaluating the responseand activity of the chemotherapy and if there is a good response can help to limit the extent of surgery. Currently she is receiving neoadjuvant chemotherapy including combination of Taxol carboplatin plusKeytruda. She had issue last week with generalized weakness, diarrhea and had pancytopenia. She wastreated with antibiotics. Now she is feeling better and stronger without any new symptoms. On physical examination there is no palpable mass in the left breast. Clinically she has excellent response.She continues to have neutropenia with improving blood counts. Discussed with the patient and nephew about the diagnosis reviewed all the available blood test result with them. I will continue to hold in postpone the chemotherapy to next week. I will also reducethe dose of chemotherapy by 15%. I will also communicate with Dr. Abdul about her opinion to evaluate her for possible early surgery in case if she continues to have issue and with the toxicity of the chemotherapy. PLAN: As above. She will return to clinic for follow-up in 3 weeks. The patient voiced understanding of all of [...] Notes * Demi Preciado MED ASSIST - 12/19/2023 8:41 AM EDT Patient identifed by name and birthdate Do you have any concerns about pain management for today's visit? Yes. Patient instructed to discuss pain concerns with provider during the visit today Living Will or Advance Directive for Health Care as noted on the problem list. [facility] is a way you can talk to your provider on line through e-mail. Would you like to sign up? I can activate it for you? ALREADY ACTIVE Filed Vitals: 12/19/23 0839 BP: 145/83 Pulse: 109 Temp: 36.6 C (97.8 F) TempSrc: Tympanic SpO2: 93% Weight: 59.9 kg (132 lb) Patient was instructed to not get up on the exam table/exam chair until directed and assisted by their provider; patient is to remain seated in the chair/ wheelchair/ exam table/ exam chair for fall prevention and safety reasons. Patient is aware to have assistance to step down off exam table/exam chair with personnel. Patient voiced full comprehension of instructions. Pt was admitted to [facility] approximately two weeks ago. Stated she had an infection from an unknown origin. documented in this encounter Plan of Treatment Upcoming Encounters Date Type Department Care Team (Late st Contact Info) Description 12/21/2023 8:00 AM EDT Home Visit [facility] [address] [place] [address] Cyn Henley, Community Health Nurse Practitioner Adult [address] [place] [address] 12/27/2023 9:10 AM EDT Laboratory Laboratory [facility] [address] [place] [address] Christina, Lab Scenery [address] [place], [place] [address] 12/27/2023 10:15 AM EDT Hem/Onc Treatment Hematology/Oncology Treatment, [place] [address] [facility], [place] [address] Christina, Chair 8 Hem Onc Scenery [address] [place], [place] [address] 01/03/2024 8:00 AM EDT Laboratory Laboratory [facility] [place] [address] [place], [place] [address] Christina, Lab Scenery [address] [place] [address] 01/03/2024 9:00 AM EDT Hem/Onc Treatment Hematology/Oncology Treatment, [place] [address] [place] [address] Christina, Chair 6 Hem Onc Scenery [address] [place] [address] 01/10/2024 8:30 AM EDT Laboratory Laboratory [facility] [place] [address] [place] [address] Christina, Lab Scenery [address] [place] [address] 01/10/2024 9:00 AM EDT Office Visit Hematology/Oncology [facility] [address] [facility] [place], [place] [address] Alissa Roldan CRNP [address] [facility] [place] [address] 01/10/2024 9:30 AM EDT Hem/Onc Treatment Hematology/Oncology Treatment, [place] [address] [facility] [address] [place] [phone] Christina, Chair 9 Hem Onc [facility] [address] [facility] [place] [address] 01/31/2024 9:00 AM EDT Office Visit Hematology/Oncology [facility] [address] [facility] [place] [address] Nas Palacios MD [address] [facility] [place] [address] 02/03/2024 10:30 AM EDT Telemedicine Genetics HemOnc, [facility] [address] [place] [address] Mabel Ford, MS [address] [place] [address] 03/16/2024 2:40 PM EDT Office Visit [facility] [address] [place] [address] Toby Bell MD [address] [place] [address] 04/10/2024 10:30 AM EST Imaging Radiology, [address] [place] [address] Health Maintenance Due Date Last Done Comments [...] this encounter Medical Devices Implanted Type Area Production Team Advisor Device Identifier Shelf Expiration Date Model / Serial / Lot Port Power Mri W8fr Cath - [id number] Implanted:Qty: 1 on 11/02/2023 by Mariah Abdul MD at [facility] Right: Chest CR BARD : PERIPHERAL VASCULAR 08/20/2024 [id number] / / [id number] documented as of this encounter Visit Diagnoses Diagnosis Malignant neoplasm of upper-inner quadrant of left breast in female, estrogen receptor negative (HCC)- Primary documented in this encounter Advance Directives Documents on File Type Date Recorded Patient Trust Manager Expl anation Advance Directives and Living Will 12/16/2023 signed on 12/30/1993 Power of Computer Numerical Control Machinist 12/16/2023 signed on 11/14/2020 * Full Code (Latest Code Status on File) Date Activated Date Inactivated Comments 11/02/2023 11:37 AM 11/02/2023 6:38 PM This order reflects the patients wishes and were consensually agreed upon. Question Answer Comments Discussion of Advance Directives occurred with: Patient Care Teams Online Merchant Relationship Specialty Start Date End Date Toby Bell MD [address] [place] [address] PCP - General Family Medicine 02/08/22 documented as of this encounter"
--- OUTSIDE RECORDS SUMMARY | 2023-12-28 23:58 | External Medical Summary | Summary of Care ---
Author Name Unknown Organization [facility] Address [address] [place] [address] Phone [phone] Care Team Providers Care Lidding Machine Operator Name Role Phone Toby Bell MD Primary Care Provider +1- [phone] Reason for Visit * Reason Comments Outpatient Testing Encounter Details Date Type Department Care Team (Late st Contact Info) Description 12/19/2023 8:10 AM EDT Laboratory Laboratory [place] [address] [place] [address] [facility] Lab Scenery [address] [place] [address] Malignant neoplasm of upper-inner quadrant of left [...] 12/19/2023 8:45 AM EDT Office Visit Hematology/Oncology [facility] [place] [address] [place] [phone] Nas Palacios MD [address] [place] [address] Arrived 12/19/2023 9:15 AM EDT Hem/Onc Treatment Hematology/Oncology Treatment, [place] [address] [facility] [place] [phone] Christina, Chair [address] [facility] [address] [place] [address] Arrived 12/21/2023 8:00 AM EDT Home Visit Care Coordination and Integration [address] [place] [address] Cyn [facility] Clinical Nutritionist [address] [place] [address] 12/27/2023 9:10 AM EDT Laboratory Laboratory [place] [address] [place] [phone] Christina Lab [facility] [address] [place] [address] 12/27/2023 10:15 AM EDT Hem/Onc Treatment Hematology/Oncology Treatment, [place] [address] [facility] [place] [phone] Christina, Chair 8 Hem Onc [place] [address] [place], [place] [address] 01/03/2024 8:00 AM EDT Laboratory Laboratory [facility] [place] [address] [place], [place] [address] Christina, Lab Scenery [address] [place], [place] [address] 01/03/2024 9:00 AM EDT Hem/Onc Treatment Hematology/Oncology Treatment, [place] [address] [facility], [place] [address] Christina, Chair 6 Hem Onc [place] [address] [place], [place] [address] 01/10/2024 8:30 AM EDT Laboratory Laboratory [facility] [place] [address] [place], [place] [address] Christina, Lab Scenery [address] [place], [place] [address] 01/10/2024 9:00 AM EDT Office Visit Hematology/Oncology [facility] [place] [address] [place] [phone] Alissa [facility]an [facility] [address] 01/10/2024 9:30 AM EDT Hem/Onc Treatment Hematology/Oncology Treatment, [place] [address] [facility], [place] [phone] Christina, Chair 9 Hem Onc [place] [address] [place], [place] [address] 01/31/2024 9:00 AM EDT Office Visit Hematology/Oncology [facility] [place] [address] [place] [address] Nas Palacios MD [address] [place], [place] [address] 02/03/2024 10:30 AM EDT Telemedicine Genetics HemOnc, C [address] [place] [address] Mabel Ford, MS [address] [place] [address] 03/16/2024 2:40 PM EDT Office Visit [facility] [address] [place] [phone] Toby Bell MD [address] [place] [address] 04/10/2024 10:30 AM EST Imaging Radiology, [address] [place], [place] [address] Pending Results Name Type Priority Associated Diagnoses Date /Time COMPREHENSIVE METABOLIC PANEL Lab STAT Malignant neoplasm of upper-inner quadrant of left breast in female, estrogen receptor negative (HCC) 12/19/2023 8:21 AM EDT TSH WITH FREE T4 IF INDICATED Lab STAT Malignant neoplasm of upper-inner quadrant of left breast in female, estrogen receptor negative (HCC) 12/19/2023 8:21 AM EDT Health Maintenance Due Date Last [...] this encounter Medical Devices Implanted Type Area Script Artist Device Identifier Shelf Expiration Date Model / Serial / Lot Port Power Mri W8fr Cath - [id number] Implanted:Qty: 1 on 11/02/2023 by Mariah Abdul MD at OR [facility] Right: Chest CR BARD : PERIPHERAL VASCULAR 08/20/2024 [id number] / / [id number] documented as of this encounter Procedures Procedure Name Priority Date/Time Associated Diagnosis Comments DIFFERENTIAL, AUTOMATED STAT 12/19/2023 8:21 AM EDT Malignant neoplasm of upper-inner quadrant of left breast in female, estrogen receptor negative (HCC) CBC STAT 12/19/2023 8:21 AM EDT Malignant neoplasm of upper-inner quadrant of left breast in female, estrogen receptor negative (HCC) CBC STAT 12/19/2023 8:21 AM EDT Malignant neoplasm of upper-inner quadrant of left breast in female, estrogen receptor negative (HCC) DIFFERENTIAL, TECHNOLOGIST REVIEW Routine 12/19/2023 8:21 AM EDT Malignant neoplasm of upper-inner quadrant of left breast in female, estrogen receptor negative (HCC) documented in this encounter Results * (ABNORMAL) DIFFERENTIAL, TECHNOLOGIST REVIEW (12/19/2023 8:21 AM EDT) Pathologist [facility] 12/19/2023 8:36 AM EDT [facility] 56 Reactive Lymphocytes Present(A ) None Seen 12/19/2023 8:36 AM EDT [facility] 56 Blood Venous blood specimen / Unknown Venipuncture / Unknown 12/19/2023 8:21 AM EDT 12/19/2023 8:21 AM EDT Nas Palacios MD LAB BLOOD ORDERA BLES [facility] [address] [place] [address] * (ABNORMAL) DIFFERENTIAL, AUTOMATED (12/19/2023 8:21 AM EDT) [facility] WBC 1.30(L) 4.00 - 10.80 K/uL 12/19/2023 8:36 AM EDT [facility] 56- Neutrophils % 66.1 40.0 - 75.0 % 12/19/2023 8:36 AM EDT [facility] 56 Lymphocytes % 27.7 18.0 - 42.0 % 12/19/2023 8:36 AM EDT [facility] 56- Monocytes % 5.4 1.0 - 11.0 % 12/19/2023 8:36 AM EDT [facility] 56- Eosinophils % 0.0 0.0 - 6.0 % 12/19/2023 8:36 AM EDT [facility] 56- Basophils % 0.8 0.0 - 2.0 % 12/19/2023 8:36 AM EDT [facility] 56- Absolute Neutrophils 0.86(L) 1.80 - 7.70 K/uL 12/19/2023 8:36 AM EDT [facility] 56- Absolute Lymphocytes 0.36(L) 1.00 - 4.80 K/ul 12/19/2023 8:36 AM EDT [facility] 56 Absolute Monocytes 0.07 0.00 - 1.10 K/uL 12/19/2023 8:36 AM EDT [facility] 56 Absolute Eosinophils 0.00 0.00 - 0.70 K/uL 12/19/2023 8:36 AM EDT [facility] Absolute Basophils 0.01 0.00 - 0.20 K/uL 12/19/2023 8:36 AM EDT [facility] Blood Venous blood specimen / Unknown Venipuncture / Unknown 12/19/2023 8:21 AM EDT 12/19/2023 8:21 AM EDT Nas Palacios MD LAB BLOOD ORDERA BLES [facility] [address] [place] [address] * (ABNORMAL) CBC (12/19/2023 8:21 AM EDT) WBC 1.30(L) 4.00 - 10.80 K/uL 12/19/2023 8:36 AM EDT [facility] RBC 3.66 3.85 - 5.15 M/uL 12/19/2023 8:36 AM EDT [facility] HGB 11.8(L) 12.0 - 15.3 g/dL 12/19/2023 8:36 AM EDT [facility] HCT 36.0 36.0 - 45.2 % 12/19/2023 8:36 AM EDT [facility] MCV 98.4 81.5 - 97.5 fL 12/19/2023 8:36 AM EDT [facility] MCH 32.2 27.0 - 34.0 pg 12/19/2023 8:36 AM EDT [facility] MCHC 32.8 32.0 - 36.0 g/dL 12/19/2023 8:36 AM EDT [facility] RDW 16.9 11.5 - 15.5 % 12/19/2023 8:36 AM EDT [facility] PLT 188 140 - 400 K/uL 12/19/2023 8:36 AM EDT [facility] MPV 9.6 6.6 - 11.1 fL 12/19/2023 8:36 AM EDT [facility] Blood Venous blood specimen / Unknown Venipuncture / Unknown 12/19/2023 8:21 AM EDT 12/19/2023 8:21 AM EDT Nas Palacios MD LAB BLOOD ORDERA BLES [facility] [address] [place] [address] documented in this encounter Visit Diagnoses Diagnosis Malignant neoplasm of upper-inner quadrant of left breast in female, estrogen receptor negative (HCC) documented in this encounter Advance Directives Documents on File Type Date Recorded Patient Document Review Attorney Expl anation Advance Directives and Living Will 12/16/2023 signed on 12/30/1993 Power of Insurance Administrator 12/16/2023 signed on 11/14/2020 * Full Code (Latest Code Status on File) Date Activated Date Inactivated Comments 11/02/2023 11:37 AM 11/02/2023 6:38 PM This order reflects the patients wishes and were consensually agreed upon. Question Answer Comments Discussion of Advance Directives occurred with: Patient Care Teams Lidding Machine Operator Relationship Specialty Start Date End Date Toby Bell MD [address] [place] [address] PCP - General Family Medicine 02/08/22 documented as of this encounter
--- OUTSIDE RECORDS SUMMARY | 2023-12-28 23:58 | External Medical Summary ---
Author Name Unknown Address Unknown Organization [id number]:LABORATORY [facility] [place] - [address] [place] [address] Laboratory Report Ordering Provider Test Date Status LEANN ROWELL 12/19/2023 08:21:44 Final Observation Date Value Abnormality Reference (Units ) Status TSH 12/19/2023 08:21:44 0.71 0.27-4.20 (uIU/mL) Final Performing Location LAB[facility]ATORY [facility] - [address] [place] [address]
--- OUTSIDE RECORDS SUMMARY | 2023-12-28 23:58 | External Medical Summary | Summary of Care ---
Author Name Unknown Organization [facility] Address [address] [place] [address] Phone [phone] Care Team Providers Care Cover Remover Name Role Phone Toby Bell MD Primary Care Provider +1- [phone] Encounter Details Date Type Department Care Team (Late st Contact Info) Description 12/19/2023 Orders Only Hematology/Oncology, [facility] [address] [place] [address] Nas Palacios MD [address] [place] [address] Allergies Active Allergy Reactions Criticality Noted Date [...] Visit Care Coordination and Integration [address] [place] [address] Cyn Hen[facility] [place] Operator [address] [place] [address] 12/27/2023 9:10 AM EDT Laboratory Laboratory [facility] Christina [place] [address] [place] [phone] Christina, Lab Scenery [address] [place] [address] 12/27/2023 10:15 AM EDT Hem/Onc Treatment Hematology/Oncology Treatment, [place] [address] [place] [phone] Christina, Chair 8 Hem Onc Scenery [address] [place] [address] 01/03/2024 8:00 AM EDT Laboratory Laboratory [facility] Christina [place] [address] [place] [phone] Christina, Lab Scenery [address] [facility] [place] [address] 01/03/2024 9:00 AM EDT Hem/Onc Treatment Hematology/Oncology Treatment, [place] 200 [facility] Radha [place], [place] [phone] Christina, Chair 6 Hem Onc [facility] 200 [facility] [place], [place] [address] 01/10/2024 8:30 AM EDT Laboratory Laboratory [facility] Christina [place] 200 [facility] [place], [place] [phone] Christina, Lab [facility] 200 [facility] [place], [place] [address] 01/10/2024 9:00 AM EDT Office Visit Hematology/Oncology [facility] [place] 200 [facility] [place], [place] [phone] Alissa Roldan CRNP [address] [place] [address] 01/10/2024 9:30 AM EDT Hem/Onc Treatment Hematology/Oncology Treatment [place] 200 [facility], [place] [phone] Christina, Chair 9 Hem Onc [facility] 200 [facility] [place], [place] [address] 01/31/2024 9:00 AM EDT Office Visit Hematology/Oncology [facility] [place] 200 [facility] [place], [place] [phone] Nas Palacios MD 200 [facility] [place], [place] [address] 02/03/2024 10:30 AM EDT Telemedicine Genetics [facility], [facility] [address] [place] [address] Mabel Ford, MS [address] [place] [address] 03/16/2024 2:40 PM EDT Office Visit [facility] [address] [facility] [place] [address] Toby Bell MD [address] [place] [address] 04/10/2024 10:30 AM EST Imaging Radiology, [address] [place] [address] Health Maintenance Due Date Last Done Comments [...] this encounter Medical Devices Implanted Type Area Loft Rigger Device Identifier Shelf Expiration Date Model / Serial / Lot Port Power Mri W8fr Cath - [id number] Implanted:Qty: 1 on 11/02/2023 by Mariah Abdul MD at OR [facility] Right: Chest CR BARD : PERIPHERAL VASCULAR 08/20/2024 [id number] / / [id number] documented as of this encounter Advance Directives Documents on File Type Date Recorded 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 Question Answer Comments Discussion of Advance Directives occurred with: Patient Care Teams Cover Remover Relationship Specialty Start Date End Date Toby Bell MD [address] [place] [address] PCP - General Family Medicine 02/08/22 documented as of this encounter
--- OUTSIDE RECORDS SUMMARY | 2023-12-28 23:58 | External Medical Summary ---
Author Name Unknown Address Unknown Organization K09:[facility] [address] [place] [address] Laboratory Report Ordering Provider Test Date Status LEANN ROWELL 12/19/2023 08:21:44 Final Observation Date Value Abnormality Reference (Units ) Status BUN 12/19/2023 08:21:44 15 6-20 (mg/dL) Final Creatinine 12/19/2023 08:21:44 0.6 0.5-1.0 (mg/dL) Final Glomerular filtration rate/1.73 sq M.predicted [Volume Rate/Area] in Serum, Plasma or Blood by Creatinine-based formula (CKD-EPI) 12/19/2023 08:21:44 87 >=60 (mL/min) Final eGFR is calculated based on the CKD-EPI 2020 equation. Sodium 12/19/2023 08:21:44 138 135-146 (m mol/L) Final Potassium 12/19/2023 08:21:44 4.6 3.5-5.1 (m mol/L) Final Cl 12/19/2023 08:21:44 102 98-107 (mm ol/L) Final CO2 12/19/2023 08:21:44 23 22-32 (mmo l/L) Final Anion gap 12/19/2023 08:21:44 13 7-15 (mmol /L) Final Glucose 12/19/2023 08:21:44 210 Above high normal 70 -120 (mg/dL) Final Albumin 12/19/2023 08:21:44 3.8 3.8-5.0 (g /dL) Final AST (Aspartate aminotransferase) 12/19/2023 08:21:44 32 10-35 (U/L) Fin al Alk Phos 12/19/2023 08:21:44 64 35-130 (U/ L) Final Bilirubin, Total 12/19/2023 08:21:44 0.3 <=1 .2 (mg/dL) Final Calcium 12/19/2023 08:21:44 9.6 8.4-10.2 ( mg/dL) Final Protein 12/19/2023 08:21:44 6.8 6.0-8.3 (g /dL) Final ALT (Alanine aminotransferase) 12/19/2023 08:21:44 25 10-35 (U/L) Octavio lo Performing Location [facility] [address] [place] [address]
--- OUTSIDE RECORDS SUMMARY | 2023-12-28 23:58 | External Medical Summary ---
Author Name Unknown Address Unknown Organization K09:[facility] [place] [address] Laboratory Report Ordering Provider Test Date Status LEANN ROWELL 12/19/2023 08:21:44 Final Observation Date Value Abnormality Reference (Units ) Status WBC, Total 12/19/2023 08:21:44 1.30 Below low normal 4. 00-10.80 (K/uL) Final RBC 12/19/2023 08:21:44 3.66 3.85-5.15 (M/uL) Final Hemoglobin 12/19/2023 08:21:44 11.8 Below low normal 12 .0-15.3 (g/dL) Final HCT 12/19/2023 08:21:44 36.0 36.0-45.2 (%) Final MCV 12/19/2023 08:21:44 98.4 81.5-97.5 (fL) Final MCH 12/19/2023 08:21:44 32.2 27.0-34.0 (pg) Final MCHC 12/19/2023 08:21:44 32.8 32.0-36.0 (g/dL) Final RDW 12/19/2023 08:21:44 16.9 11.5-15.5 (%) Final Platelets 12/19/2023 08:21:44 188 140-400 (K /uL) Final MPV 12/19/2023 08:21:44 9.6 6.6-11.1 ( fL) Final Performing Location [facility] [place] [address]
--- OUTSIDE RECORDS SUMMARY | 2023-12-28 23:58 | External Medical Summary | Summary of Care ---
Author Name Unknown Organization [facility] Address [address] [place] [address] Phone [phone] Care Team Providers Care Visual Specialist Name Role Phone Toby Bell MD Primary Care Provider +1- [phone] Encounter Details Date Type Department Care Team (Late st Contact Info) Description 12/19/2023 Orders Only Hematology/Oncology [facility] [place] [address] [place] [phone] aNs Palacios MD [address] [place] [address] Allergies Active Allergy Reactions Criticality Noted Date [...] Visit Care Coordination and Integration [address] [place] [address] Cyn Henley, [facility] Stringer Up Soldering Machine [address] [place] [address] 12/27/2023 9:10 AM EDT Laboratory Laboratory [facility] Christina [place] [address] [place] [phone] Christina Lab Scenery [address] [place] [address] 12/27/2023 10:15 AM EDT Hem/Onc Treatment Hematology/Oncology Treatment, [place] [address] [place] [phone] Christina, Chair 8 Hem Onc Scenery [address] [place] [address] 01/03/2024 8:00 AM EDT Laboratory Laboratory [facility] Christina [place] [address] [place] [phone] Christina Lab Scenery [address] [facility] [place] [address] 01/03/2024 9:00 AM EDT Hem/Onc Treatment Hematology/Oncology Treatment, [place] 200 [facility], [place] [phone] Christina, Chair 6 Hem Onc [facility] 200 [facility] [place], [place] [address] 01/10/2024 8:30 AM EDT Laboratory Laboratory [facility] Christina [place] [address] [place] [phone] Christina, Lab [facility] [address] [facility] [place], [place] [address] 01/10/2024 9:00 AM EDT Office Visit Hematology/Oncology [facility] [place] 200 [facility] [place], [place] [phone] Alissa Roldan CRNP [address] [place] [address] 01/10/2024 9:30 AM EDT [facility] 200 [facility], [place] [phone] Christina, Chair 9 Hem Onc [facility] 200 [facility] [place], [place] [address] 01/31/2024 9:00 AM EDT Office Visit Hematology/Oncology [facility] Christina [place] [address] [place], [place] [phone] Nas Palacios MD [address] [place], [place] [address] 02/03/2024 10:30 AM EDT Telemedicine Genetics HemOnc, [place] [address] [place] [address] Mabel Ford, MS [address] [place] [address] 03/16/2024 2:40 PM EDT Office Visit [facility] [address] [place] [facility] [place] [address] Toby Bell MD [address] [facility] [place] [phone] 04/10/2024 10:30 AM EST Imaging Radiology, [address] [place] [address] Health Maintenance Due Date Last Done Comments [...] this encounter Medical Devices Implanted Type Area Pinsetter Mechanic Helper Device Identifier Shelf Expiration Date Model / Serial / Lot Port Power Mri W8fr Cath - [id number] Implanted:Qty: 1 on 11/02/2023 by Mariah Abdul MD at OR [facility] Right: Chest CR BARD : PERIPHERAL VASCULAR 08/20/2024 [id number] / / [id number] documented as of this encounter Advance Directives Documents on File Type Date Recorded 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 Question Answer Comments Discussion of Advance Directives occurred with: Patient Care Teams Visual Specialist Relationship Specialty Start Date End Date Toby Bell MD [address] [place] [facility] [place] [address] PCP - General Family Medicine 02/08/22 documented as of this encounter
--- OUTSIDE RECORDS SUMMARY | 2023-12-28 23:58 | External Medical Summary ---
Author Name Unknown Address Unknown Organization K09:[facility] [place] [address] Laboratory Report Ordering Provider Test Date Status LEANN ROWELL 12/19/2023 08:21:44 Final Observation Date Value Abnormality Reference (Units ) Status Nucleated erythrocytes/100 leukocytes [Ratio] in Blood by Automated count 12/19/2023 08:21:44 Final Variant lymphocytes [Presence] in Blood by Light microscopy 12/19/2023 08:21:44 Present Abnormal None Seen Final Performing Location [facility] [place] [address]
--- OUTSIDE RECORDS SUMMARY | 2023-12-28 23:58 | External Medical Summary | Summary of Care ---
Author Name Unknown Organization [facility] Address [address] [place] [address] Phone [phone] Care Team Providers Care Registration Scheduling Specialist Name Role Phone Toby Bell MD Primary Care Provider +1- [phone] Encounter Details Date Type Department Care Team (Late st Contact Info) Description 12/21/2023 8:00 AM EDT Home Visit Care Coordination and Integration [address] [place] [address] Cyn Henley, Community Health Power Press Operator [address] [place] [address] Allergies Active Allergy Reactions Criticality Noted Date Comments Guaifenesin & Derivatives 10/11/2000 Daily--hives Lisinopril Edema face/lips/tongue High 08/05/2021 documented as of this encounter (statuses as of 12/22/2023) Medications Medication Sig Dispensed Refills Start Date [...] as of this encounter (statuses as of 12/22/2023) Active Problems Problem Noted Date Diagnosed Date [...] as of this encounter (statuses as of 12/22/2023) Immunizations Name Administration Dates Next Due COVID-19 [...] Sign Reading Time Taken Comments Blood Pressure 120/64 12/21/2023 8:34 AM EDT Pulse 63 12/21/2023 8:34 AM EDT Temperature 36.5 C (97.7 F) 12/21/2023 8:34 AM ED T Respiratory Rate 18 12/21/2023 8:34 AM EDT Oxygen Saturation 96% 12/21/2023 8:34 AM EDT Inhaled Oxygen Concentration - - Weight - - Height - - Body Mass Index - - documented in this encounter Progress Notes * Cyn Henley, Community Health Power Press Operator - 12/22/2023 9:43 PM EDT Telemedicine visit: No Community Health Power Press Operator (HAMILTON) documentation: CHW home visit completed this date. Pt had been admitted to the hospital recently with an infectionaffecting her ability to control her bowels and bladder. Pt states that has since subsided and she is no longer experiencing diarrhea. Pt's grandson also present for HV. Pt lives alone, with her grandson going between his grandmother's and his place in [place]. Pt and her grandson have concerns about pt. Being alone, with no one checking on her when the grandson is out of state. CHW contacted [facility] to set up for a case aide come into the home and do an assessment to determine pt's needs and options. CHW suggested a medical alert system, but ted states he doesn't feel they are effective. Ted was upset that a CHW was sent to see the pt instead of a nurse. CHW explained that everything would be routed to the case aide and that if there was anything they felt needed to be addressed by a nurse the CHW could escalate that to the nurse. The grandson had no medical issues that needed escalated. He was under the impression that a nurse would go into the home weekly or call weeklyto check on the grandmother consistently. CHW asked if there were neighbors, family or friends that could stop by or call daily and the grandson said "no". The pt felt there were neighbors and a relative that could check on her. This pt is very independent, ambulating without device. Pt was sweeping her floor when CHW arrived.Prior to recent admission pt was having medical problems that she did not disclose to the grandson,who was in [place]. The grandson came to the pt.'s home and discovered her unconscious on the floor, covered in feces. The grandson is very concerned that someone with medical background needs to be checking on pt frequently. The grandson states that paying for this out of pocket is not an issue. CHW did provide him with the [facility] resource booklet with all the local home health agencies listed with their phone numbers and the type of services they provide. CHW will do a f/u phone call next week to check on progress of the AAA and home health agencies. documented in this encounter Plan of Treatment Upcoming Encounters Date Type Department Care Team (Late st Contact Info) Description 12/27/2023 9:10 AM EDT Laboratory Laboratory Bree Vasquez [place] [address] [phone] Christina, Lab [address] [facility] [place] [address] 12/27/2023 10:15 AM EDT Hem/Onc Treatment Hematology/Oncology Treatment, [place] [address] [facility] [place] [phone] Christina, Chair 8 Hem Onc Scenery [address] [place], [place] [address] 01/03/2024 8:00 AM EDT Laboratory Laboratory [facility] [place] [address] [place], [place] [phone] Christina, Lab Scenery [address] [place], [place] [address] 01/03/2024 9:00 AM EDT Hem/Onc Treatment Hematology/Oncology [facility] 200 [facility], [place] [address] Christina, Chair 6 Hem Onc Scenery [address] [place], [place] [address] 01/10/2024 8:30 AM EDT Laboratory Laboratory [facility] [place] [address] [place], [place] [phone] Christina, Lab Scenery [address] [place], [place] [address] 01/10/2024 9:00 AM EDT Office Visit Hematology/Oncology [facility] [address] [place], [place] [phone] Alissa Roldan CRNP 400 [facility] [place] [address] 01/10/2024 9:30 AM EDT [facility] [address] [facility], [place] [phone] Christina, Chair 9 Hem Onc Scenery [address] [place], [place] [address] 01/17/2024 1:00 PM EDT Office Visit General Surgery, [facility] [address] [place] [address] Mariah Abdul MD [address] [place] [address] 01/31/2024 9:00 AM EDT Office Visit Hematology/Oncology Bree [facility]quez [place] 200 [facility] [place], [place] [phone] Nas Palacios MD [address] [place] [address] 02/03/2024 10:30 AM EDT Telemedicine Genetics HemOnc, [facility] [address] [place] [address] Mabel Ford, MS [address] [place] [address] 03/16/2024 2:40 PM EDT Office Visit [facility] [address] [place] [address] Toby Bell MD [address] [place] [address] 04/10/2024 10:30 AM EST Imaging Radiology, [place] [id number] [facility] [place], [place] [address] Health Maintenance Due Date Last Done Comments [...] this encounter Medical Devices Implanted Type Area Senior Office Support Assistant Sosa Device Identifier Shelf Expiration Date Model / Serial / Lot Port Power Mri W8fr Cath - [id number] Implanted:Qty: 1 on 11/02/2023 by Mariah Abdul MD at OR [facility] Right: Chest CR BARD : PERIPHERAL VASCULAR 08/20/2024 [id number] / / [id number] documented as of this encounter Advance Directives Documents on File Type Date Recorded 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 Question Answer Comments Discussion of Advance Directives occurred with: Patient Care Teams Registration Scheduling Specialist Relationship Specialty Start Date End Date Toby Bell MD [address] [place] [facility] [place] [address] PCP - General Family Medicine 02/08/22 documented as of this encounter
--- OUTSIDE RECORDS SUMMARY | 2023-12-28 23:58 | External Medical Summary | Summary of Care ---
Author Name Unknown Organization [facility] Address [address] [place] [address] Phone [phone] Care Team Providers Care Manager Internet Name Role Phone Toby Bell MD Primary Care Provider +1- [phone] Encounter Details Date Type Department Care Team (Late st Contact Info) Description 12/12/2023 Population Health External Data Unspecified Department Allergies Active Allergy Reactions Criticality Noted Date [...] Description 12/12/2023 10:00 AM EDT Laboratory Laboratory [facility] [place] [address] [place] [phone] Basilio Vasquezry [address] [facility] [place] [address] 12/12/2023 11:00 AM EDT Hem/Onc Treatment Hematology/Oncology Treatment, [place] 200 [facility] [place] [phone] Christina, Chair 6 Hem Onc Scenery [address] [place] [address] 12/15/2023 11:20 AM EDT Office Visit [facility] [address] [place] [phone] Toby Bell MD [address] [place] [address] 12/20/2023 8:00 AM EDT Laboratory Laboratory Bree Vasquez [place] [address] [phone] Christina Lab [place] [address] [facility] [place] [address] 12/20/2023 9:00 AM EDT Hem/Onc Treatment Hematology/Oncology Treatment, [place] 200 [facility] [place] [phone] Christina, Chair 6 Hem Onc Scenery [address] [place] [address] 12/27/2023 9:10 AM EDT Laboratory Laboratory [place]en [place] [address] [place] [phone] Christina Lab Scenery [address] [place] [address] 12/27/2023 10:15 AM EDT Hem/Onc Treatment Hematology/Oncology Treatment, [place] 200 [place] [address] Christina, Chair 8 Hem Onc Scenery [address] [place] [address] 01/03/2024 8:00 AM EDT Laboratory Laboratory [facility] [place] [address] [place], [place] [address] Christina, Lab Scenery [address] [place], [place] [address] 01/03/2024 9:00 AM EDT [facility] [address] [place] [address] Christina, Chair 6 Hem Onc Scenery [address] [place], [place] [address] 01/10/2024 8:30 AM EDT Laboratory Laboratory [facility] [place] [address] [place], [place] [phone] Christina, Lab Scenery [address] [place], [place] [address] 01/10/2024 9:00 AM EDT Office Visit Hematology/Oncology [facility] [place] [address] [place], [place] [phone] Alissa Roldan CRNP 400 [facility] [place] [address] 01/10/2024 9:30 AM EDT Hem[facility] [address] [place] [address] Christina, Chair 9 Hem Onc Scenery [address] [place], [place] [address] 01/31/2024 9:00 AM EDT Office Visit Hematology/Oncology Bree Vasquez [place] 200 [facility] [place], [place] [phone] Nas Palacios MD 200 [facility] [place], [place] [address] 02/03/2024 10:30 AM EDT Telemedicine Genetics HemOnc, [facility] [address] [place] [address] Mabel Ford, MS [address] [place] [address] 03/16/2024 2:40 PM EDT Office Visit Family [facility] [address] [place] [phone] Toby Bell MD [address] [place] [address] 04/10/2024 10:30 AM EST Imaging Radiology, [place] 344740 [place] [address] Health Maintenance Due Date Last Done Comments [...] this encounter Medical Devices Implanted Type Area Electroslag Welding Machine Operator Device Identifier Shelf Expiration Date Model / Serial / Lot Port Power Mri W8fr Cath - [id number] Implanted:Qty: 1 on 11/02/2023 by Mariah Abdul MD at OR [facility] Right: Chest CR BARD : PERIPHERAL VASCULAR 08/20/2024 [id number] / / [id number] documented as of this encounter Advance Directives * Full Code (Latest Code Status on File) Date Activated Date Inactivated Comments 11/02/2023 11:37 AM 11/02/2023 6:38 PM This order reflects the patients wishes and were consensually agreed upon. Question Answer Comments Discussion of Advance Directives occurred with: Patient Care Teams Manager Internet Relationship Specialty Start Date End Date Toby Bell MD [address] [place] [address] PCP - General Family Medicine 02/08/22 documented as of this encounter
--- OUTSIDE RECORDS SUMMARY | 2023-12-28 23:58 | External Medical Summary | Summary of Care ---
Author Name Unknown Organization [facility] Address [address] [place] [address] Phone [phone] Care Team Providers Care Turbo Operator Name Role Phone Toby Bell MD Primary Care Provider +1- [phone] Encounter Details Date Type Department Care Team (Late st Contact Info) Description 12/08/2023 Result Scan Unspecified Department <No scans attached> Allergies Active Allergy Reactions Criticality Noted Date Comments Guaifenesin & Derivatives 10/11/2000 Daily--hivshonda Lisinopril Edema face/lips/tongue High 08/05/2021 documented as [...] 11:00 AM EDT Hem/Onc Treatment Hematology/Oncology Treatment, [place] 200 [facility] [place] [phone] Christina, Chair 6 Hem Onc Scenery [address] [place] [address] Arrived 12/15/2023 11:20 AM EDT Office Visit [facility] [address] [place] [phone] Toby Bell MD [address] [place] [address] 12/20/2023 8:00 AM EDT Laboratory Laboratory [facility] Christina [place] [address] [place] [address] Christian, Lab Scenery [address] [facility] [place] [address] 12/20/2023 9:00 AM EDT [facility] [address] [facility] [place] [phone] Christina, Chair 6 Hem Onc Scenery [address] [place] [address] 12/27/2023 9:10 AM EDT Laboratory Laboratory [facility] Christina [place] [address] [place] [phone] Christina, Lab [place] [address] [facility] [place] [address] 12/27/2023 10:15 AM EDT Hem/Onc Treatment Hematology/Oncology Treatment, [place] [address] [facility] [place] [phone] Park, Chair 8 Hem Onc Scenery [address] [place] [address] 01/03/2024 8:00 AM EDT Laboratory Laboratory [facility] [address] [place], [place] [address] Christina, Lab Scenery [address] [place] [address] 01/03/2024 9:00 AM EDT Hem[facility] 200 [place] [address] Christina, Chair 6 Hem Onc Scenery [address] [place], [place] [address] 01/10/2024 8:30 AM EDT Laboratory Laboratory [facility] [address] [place], [place] [phone] Christina, Lab Scenery [address] [place], [place] [address] 01/10/2024 9:00 AM EDT Office Visit Hematology/Oncology [facility] [address] [place], [place] [phone] Alissa Roldan CRNP [address] [place] [address] 01/10/2024 9:30 AM EDT Hem[facility] 200 [place] [address] Christina, Chair 9 Hem Onc Scenery [address] [place] [address] 01/31/2024 9:00 AM EDT Office Visit Hematology/Oncology [facility] [address] [place], [place] [phone] Nas Palacios MD [address] [place], [place] [address] 02/03/2024 10:30 AM EDT Telemedicine Genetics HemOnc, [facility] [address] [place] [address] Mabel Ford, MS [address] [place] [address] 03/16/2024 2:40 PM EDT Office Visit Family [facility] [address] [place] [address] Toby Bell MD [address] [place], [place] [address] 04/10/2024 10:30 AM EST Imaging Radiology, [address] [address] Health Maintenance Due Date Last Done Comments [...] this encounter Medical Devices Implanted Type Area Barrel Assembly Inspector Device Identifier Shelf Expiration Date Model / Serial / Lot Port Power Mri W8fr Cath - [id number] Implanted:Qty: 1 on 11/02/2023 by Mariah Abdul MD at OR [facility] Right: Chest CR BARD : PERIPHERAL VASCULAR 08/20/2024 [id number] / / [id number] documented as of this encounter Procedures Procedure Name Priority Date/Time Associated Diagnosis Comments PROCEDURE SCANNED RESULT 12/08/2023 documented in this encounter Results * PROCEDURE SCANNED RESULT (12/08/2023) 12/08/2023 No Physician Data Unknown SURGERY documented in this encounter Advance Directives * Full Code (Latest Code Status on File) Date Activated Date Inactivated Comments 11/02/2023 11:37 AM 11/02/2023 6:38 PM This order reflects the patients wishes and were consensually agreed upon. Question Answer Comments Discussion of Advance Directives occurred with: Patient Care Teams Turbo Operator Relationship Specialty Start Date End Date Toby Bell MD [address] [place] [address] PCP - General Family Medicine 02/08/22 documented as of this encounter
--- OUTSIDE RECORDS SUMMARY | 2023-12-28 23:59 | External Medical Summary ---
Author Name Unknown Address Unknown Organization K09[facility] [place] [address] Laboratory Report Ordering Provider Test Date Status LEANN ROWELL 12/12/2023 10:34:28 Final Observation Date Value Abnormality Reference (Units ) Status SYNC LEUKOCYTES IN BLOOD BY AUTOMATED COUNT 12/12/2023 10:34:28 1.96 Below low normal 4.00-10.80 (K/uL) Final Segs 12/12/2023 10:34:28 84.7 Above high normal 40.0-75.0 (%) Final Lymphs % 12/12/2023 10:34:28 13.3 Below low normal 18.0-42.0 (%) Final Monos 12/12/2023 10:34:28 2.0 1.0-11.0 (%) Final Eosinophils 12/12/2023 10:34:28 0.0 0.0-6.0 (%) Final Basos 12/12/2023 10:34:28 0.0 0.0-2.0 (%) Final Absolute Segs 12/12/2023 10:34:28 1.66 Below low normal 1.80-7.70 (K/uL) Final Lymphs, absolute 12/12/2023 10:34:28 0.26 Below low normal 1.00-4.80 (K/ul) Final Monos, Abs 12/12/2023 10:34:28 0.04 0.00-1.10 (K/uL) Final Eos, Abs 12/12/2023 10:34:28 0.00 0.00-0.70 (K/uL) Final Basos, Abs 12/12/2023 10:34:28 0.00 0.00-0.20 (K/uL) Final Performing Location [facility] [place] [address]
--- OUTSIDE RECORDS SUMMARY | 2023-12-28 23:59 | External Medical Summary | Summary of Care ---
Author Name Unknown Organization [facility] Address [address] [place] [address] Phone [phone] Care Team Providers Care Sterilization Tech Name Role Phone Toby Bell MD Primary Care Provider +1- [phone] Reason for Visit * Reason Onset Date Comments Advice 12/08/2023 Encounter Details Date Type Department Care Team (Late st Contact Info) Description 12/08/2023 Telephone Hematology/Oncology [facility] [place] [address] [place] [facility] [place] [address] Alissa Roldan CRNP [address] [place] [address] Advice Allergies Active Allergy Reactions Criticality Noted Date Comments Guaifenesin & Derivatives 10/11/2000 Daily--hives Lisinopril Edema face/lips/tongue High 08/05/2021 documented as of this encounter (statuses as of 12/08/2023) Medications Medication Sig Dispensed Refills Start Date [...] as of this encounter (statuses as of 12/08/2023) Active Problems Problem Noted Date Diagnosed Date [...] as of this encounter (statuses as of 12/08/2023) Immunizations Name Administration Dates Next Due COVID-19 [...] Telephone Encounter - Marielos Mondragon RN - 12/08/2023 3:42 PM EDT Left message for grandjanet that we do not have hearing aid here but if it does turn up will let him know. * Telephone Encounter - Remberto Houser OSA - 12/08/2023 1:58 PM EDT Patient was in office on for Treatment and lost her hearing aide, if found, please call Og. Thanks documented in this encounter Plan of Treatment Upcoming Encounters Date Type Department Care Team (Late st Contact Info) Description 12/12/2023 10:00 AM EDT Laboratory Laboratory Hellen Christina [place] [address] [place] [phone] Christina, Lab [facility] [address] [place] [address] 12/12/2023 11:00 AM EDT Hem/Onc Treatment Hematology/Oncology Treatment, [place] [address] [place] [phone] Christina, Chair 6 Hem Onc [facility] [place] [address] 12/20/2023 8:00 AM EDT [facility] [address] [place] [address] Park, Lab Scenery [address] [place] [address] 12/20/2023 9:00 AM EDT Hem/Onc Treatment Hematology/Oncology Treatment, [place] [address] [place] [address] Park, Chair 6 Hem Onc Scenery [address] [place] [address] 12/27/2023 9:10 AM EDT Laboratory Laboratory [facility] [place] [address] [place] [address] Christina, Lab Scenery [address] [place] [address] 12/27/2023 10:15 AM EDT Hem/Onc Treatment Hematology/Oncology Treatment, [place] [address] [place] [address] Christina, Chair 8 Hem Onc Scenery [address] [place] [address] 01/03/2024 8:00 AM EDT Laboratory Laboratory [facility] [address] [place] [address] Christina, Lab Scenery [address] [place] [address] 01/03/2024 9:00 AM EDT [facility] [address] [place] [address] Park, Chair 6 Hem Onc Scenery [address] [place] [address] 01/10/2024 8:30 AM EDT Laboratory Laboratory [facility] [address] [place] [address] Park, Lab Scenery [address] [place] [address] 01/10/2024 9:00 AM EDT Office Visit Hematology/Oncology [facility] [place] [address] [place] [address] Alissa Roldan CRNP [address] [place] [address] 01/10/2024 9:30 AM EDT Hem/Onc Treatment Hematology/Oncology Treatment, [place] [address] [place] [phone] Christina, Chair 9 Hem Onc [facility] 200 [place] [address] 01/31/2024 9:00 AM EDT Office Visit Hematology/Oncology [facility] [place] [address] [place] [phone] Nas Palacios MD 200 [facility] [place] [address] 02/03/2024 10:30 AM EDT Telemedicine Genetics HemOnc, [facility] [address] [place] [address] Mabel Ford, MS [address] [place] [address] 03/16/2024 2:40 PM EDT Office Visit [facility] [address] [place] [phone] Toby Bell MD [address], [place] [phone] 04/10/2024 10:30 AM EST Imaging Radiology, [address] [place] [address] Health Maintenance Due Date Last Done Comments DXA Scan 1940 Albumin/Creatinine Ratio 09/16/1958 COVID-19 Vaccine ( season) 2023 09/16/2020, 08/15/2020 HbA1c 05/06/2023 11/04/2022 Influenza Vaccine (FLU shot) (#1) 2024 03/04/2023, 02/08/2022, 02/14/2020, Additional history exists Depression Screening 10/10/2024 10/11/2023 Diabetic Foot Exam 10/10/2024 10/11/2023 Diabetic Eye Exam 10/19/2024 10/20/2023, , 10/20/2023, Additional history exists GFR 12/05/2024 12/06/2023, 07/12/2023, 11/21/2023, Additional history exists DTaP,Tdap,and Td Vaccines [...] this encounter Medical Devices Implanted Type Area Comic Illustrator Device Identifier Shelf Expiration Date Model / Serial / Lot Port Power Mri W8fr Cath - [id number] Implanted:Qty: 1 on 11/02/2023 by Mariah Abdul MD at OR [facility] Right: Chest CR BARD : PERIPHERAL VASCULAR 08/20/2024 [id number] / / [id number] documented as of this encounter Advance Directives * Full Code (Latest Code Status on File) Date Activated Date Inactivated Comments 11/02/2023 11:37 AM 11/02/2023 6:38 PM This order reflects the patients wishes and were consensually agreed upon. Question Answer Comments Discussion of Advance Directives occurred with: Patient Care Teams Sterilization Tech Relationship Specialty Start Date End Date Toby Bell MD [address] [place] [address] PCP - General Family Medicine 02/08/22 documented as of this encounter
--- OUTSIDE RECORDS SUMMARY | 2023-12-28 23:59 | External Medical Summary ---
Author Name Unknown Address Unknown Organization K09[facility] [place] [address] Laboratory Report Ordering Provider Test Date Status LEANN ROWELL 12/12/2023 10:34:28 Final Observation Date Value Abnormality Reference (Units ) Status Nucleated erythrocytes/100 leukocytes [Ratio] in Blood by Automated count 12/12/2023 10:34:28 Final Performing Location [facility] [place] [address]
--- OUTSIDE RECORDS SUMMARY | 2023-12-28 23:59 | External Medical Summary ---
Author Name Unknown Address Unknown Organization K09:[facility] [place] [address] Laboratory Report Ordering Provider Test Date Status LEANN ROWELL 12/12/2023 10:34:28 Final Observation Date Value Abnormality Reference (Units ) Status WBC, Total 12/12/2023 10:34:28 1.96 Below low normal 4. 00-10.80 (K/uL) Final RBC 12/12/2023 10:34:28 3.65 3.85-5.15 (M/uL) Final Hemoglobin 12/12/2023 10:34:28 11.3 Below low normal 12 .0-15.3 (g/dL) Final HCT 12/12/2023 10:34:28 34.8 Below low normal 36. 0-45.2 (%) Final MCV 12/12/2023 10:34:28 95.3 81.5-97.5 (fL) Final MCH 12/12/2023 10:34:28 31.0 27.0-34.0 (pg) Final MCHC 12/12/2023 10:34:28 32.5 32.0-36.0 (g/dL) Final RDW 12/12/2023 10:34:28 14.9 11.5-15.5 (%) Final Platelets 12/12/2023 10:34:28 153 140-400 (K /uL) Final MPV 12/12/2023 10:34:28 10.4 6.6-11.1 ( fL) Final Performing Location [facility] [place] [address]
--- OUTSIDE RECORDS SUMMARY | 2023-12-28 23:59 | External Medical Summary | Summary of Care ---
Author Name Unknown Organization [facility] Address [address] [place] [address] Phone [phone] Care Team Providers Care Clinical Appeals Reviewer Name Role Phone Toby Bell MD Primary Care Provider [phone]- [phone] Reason for Visit * Reason Comments Follow Up Treatment Encounter Details Date Type Department Care Team (Late st Contact Info) Description 12/06/2023 8:30 AM EDT Office Visit Hematology/Oncology [facility] [place] [address] [place] [address] Alissa Roldan CRNP [address] [place] [address] Malignant neoplasm of upper-inner quadrant of left [...] Sign Reading Time Taken Comments Blood Pressure 173/92 12/06/2023 8:41 AM EDT Pulse 91 12/06/2023 8:41 AM EDT Temperature 36.4 C (97.6 F) 12/06/2023 8:41 AM ED T Respiratory Rate 16 12/06/2023 8:41 AM EDT Oxygen Saturation 93% 12/06/2023 8:41 AM EDT Inhaled Oxygen Concentration - - Weight 61.2 kg (135 lb) 12/06/2023 8:41 AM EDT Height - - Body Mass Index 21.14 11/02/2023 11:54 AM EDT documented in this encounter Progress Notes * Alissa Roldan CRNP - 12/06/2023 8:30 AM EDT Hematology/Oncology Outpatient Clinic note [facility] [place] [address] [address] Name: Humaira Stack Date: 12/05/2023 CHIEF COMPLAINT: Humaira Stack is a 83 year old female patient of Dr. Lovell Suzanne here today for f/u visit today. From Patient chart confirmed with patient. From Dr. Lovell Suzanne note 10/26/23. HEMATOLOGY/ONCOLOGY DIAGNOSIS: Malignant neoplasm of upper-inner quadrant of left breast in female, estrogen receptor negative. Cancer Staging Clinically staging cT2 cN0 MX DATE OF DIAGNOSIS: 10/03/23 CURRENT TREATMENT: Pembrolizumab 200 mg D1 + Paclitaxel 80 mg/m D1, 8, 15 + Carboplatin AUC=1.5 D1, 8, 15 q21 Days x12 Weeks (11/07/23 - ) Followed by Pembrolizumab 200 mg + Doxorubicin + Cyclophosphamide q21 Days x 12 Weeks Followed by Surgery ONCOLOGY HISTORY: Patient with history significant for hypertension and prediabetic [...] weakly positive with 1% nuclear positivity and OK negative and HER2 Angelita negative. Final Diagnosis A. Left breast, 10 o'clock 7 cm from the nipple, needle core biopsy: -- Invasive mammary carcinoma, grade 3. -- See comment. Comment: This tumor has ductal and metaplastic differentiation Estrogen Receptor (ER) protein expression is WEAKLY POSITIVE 1% nuclear positivity Progesterone Receptor (OK) protein expression is NEGATIVE HER2 oncoprotein expression [...] type. Father was diagnosed of multiple sclerosis. HISTORY OF PRESENT ILLNESS: Humaira Stack is a 83 year old female with a history as outlined above. Currently here for f/u visit today and consideration for C2D8 of treatment. Patient feeling well today. Feels that she is tolerating treatment relatively well. Has been having constipation that she treats with dulcolax and Miralax if needed. Food is not tasting right for her. Still able to eat despite this. Trying to push oral fluids. Weight is stable. Denies nausea or vomiting. Has some mild intermittent neuropathy in herfingers and toes. Past Medical History: Diagnosis Date Macular degeneration Undiagnosed cardiac murmurs Past Surgical History: Procedure Laterality Date CV STRESS (CARDIOLYTE) 07/06/99 Normal INFORMATION varicose veins stripped b/l INJECT DX/THER SUBSTANCE INTERLAMINAR LUMBAR/SACRAL W IMAGE GUIDE 04/22/2022 INJECTION SPINE LUMBAR OR SACRAL performed by Ad Villalba DO at OR [facility] INSER TUNN ACC DEV;5 YRS/OLDER Right 11/02/2023 INSERT TUNNELED CENTRAL VENOUS ACCESS WITH SUBQ PORT performed by Mariah Abdul MD at OR [facility] MISCELLANEOUS ORDER removed bone palate in order to get dentures Social History Socioeconomic History Marital status: Spouse name: Not on file Number of children: 2 Years of education: Not on file Highest education level: Not on file Occupational History 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 (Adult - for ages 18 years and over): No Does your family have trouble paying for medicine? (Household - for ages 0-17 years): Not on file Food Insecurity: No Food Insecurity (10/11/2023) Food Insecurity Do you need food for this week? (Adult - for ages 18 years and over): No Are you able to get enough food for your family? (Household - for ages 0-17 years): Not on file Does your family need food this week? (Household - for ages 0-17 years): Not on file Do you always have enough food for your family? (Household - for ages 0-17 years): Not on file Transportation Needs: No Transportation Needs (10/11/2023) Transportation Needs Do you have trouble getting a ride to medical visits or work? (Adult - for ages 18 years and over):Never True Does your family have a hard time getting a ride to doctors visits? (Household - for ages 0-17 years): Not on file Has lack of transportation kept you from medical appointments, meetings, work, or from getting things needed for daily living? Check all that apply. (Adult - for ages 18 years and over): Not on file Do you (or your family) have trouble finding or paying for a ride (transportation)? (Household - for ages 0-17 years): Not on file Social Connections: Socially Integrated (10/11/2023) Social Connections How often do you feel lonely or isolated from those around you? (Adult - for ages 18 years and over): Never Housing Stability: Low Risk (10/11/2023) Housing Stability Do you currently live in a alf or have no steady place to sleep at night? (Adult - for ages 18 years and over): No Do you think you are at risk of becoming homeless? (Adult - for ages 18 years and over): No Does your family worry about paying for your home or becoming homeless? (Household - for ages 0-17 years): Not on file Are you homeless or worried that you might be in the future? (Adult - for ages 18 years and over): Not on file Are you (or your family) homeless or worried that you might be in the future? (Household - for ages0-17 years): Not on file Review of patient's allergies indicates: Allergen Reactions Lisinopril Edema face/lips/tongue Guaifenesin & Derivatives Daily--hives Current Outpatient Medications Medication Sig Dispense Refill [...] No current facility-administered medications for this visit. REVIEW OF SYSTEMS: See HPI - otherwise negative OBJECTIVE: Filed Vitals: 12/06/23 0841 BP: 173/92 Pulse: 91 Resp: 16 Temp: 36.4 C (97.6 F) TempSrc: Rectal SpO2: 93% Weight: 61.2 kg (135 lb) Wt Readings from Last 5 Encounters: 12/06/23 61.2 kg (135 lb) 11/28/23 61.1 kg (134 lb 12.8 oz) 11/21/23 62.3 kg (137 lb 6.4 oz) 11/14/23 62.3 kg (137 lb 6.4 oz) 11/07/23 62.2 kg (137 lb 3.2 oz) PHYSICAL EXAM: ECOG: Performance Status 0 = 100% Normal Activity General Appearance: Normal - Healthy appearing patient in no acute distress HEENT: Normal - No oral or pharyngeal masses, ulceration or thrush noted Lymph Nodes: Normal - No palpable lymph nodes in the neck, supraclavicular or axillary areas Lungs/Thorax: Normal - Clear to auscultation Heart: Normal - Regular rate and rhythm, normal S1, S2, no appreciable murmurs Pulses/Extremities: Normal - 2+ throughout and symmetrical, no edema Neurologic: Normal - Grossly intact LABS: Results for orders placed or performed in visit on 12/06/23 COMPREHENSIVE METABOLIC PANEL Result Value Ref Range BUN 14 6 - 20 mg/dL Creatinine 0.6 0.5 - 1.0 mg/dL Estimated Glomerular Filtration Rate 89 >=60 mL/min Sodium 137 135 - 146 mmol/L Potassium 4.6 3.5 - 5.1 mmol/L Chloride 103 98 - 107 mmol/L CO2 21 (L) 22 - 32 mmol/L Anion Gap 13 7 - 15 mmol/L Glucose 189 (H) 70 - 120 mg/dL Albumin 4.1 3.8 - 5.0 g/dL AST 37 (H) 10 - 35 U/L Alkaline Phosphatase 64 35 - 130 U/L Bilirubin, Total 0.5 <=1.2 mg/dL Calcium 9.0 8.4 - 10.2 mg/dL Protein 7.0 6.0 - 8.3 g/dL ALT 38 (H) 10 - 35 U/L CBC Result Value Ref Range WBC 2.07 (L) 4.00 - 10.80 K/uL RBC 3.82 3.85 - 5.15 M/uL HGB 12.2 12.0 - 15.3 g/dL HCT 36.5 36.0 - 45.2 % MCV 95.5 81.5 - 97.5 fL MCH 31.9 27.0 - 34.0 pg MCHC 33.4 32.0 - 36.0 g/dL RDW 14.9 11.5 - 15.5 % PLT 182 140 - 400 K/uL MPV 10.1 6.6 - 11.1 fL DIFFERENTIAL, AUTOMATED Result Value Ref Range WBC 2.07 (L) 4.00 - 10.80 K/uL Neutrophils % 79.2 (H) 40.0 - 75.0 % Lymphocytes % 17.4 (L) 18.0 - 42.0 % Monocytes % 2.9 1.0 - 11.0 % Eosinophils % 0.0 0.0 - 6.0 % Basophils % 0.5 0.0 - 2.0 % Absolute Neutrophils 1.64 (L) 1.80 - 7.70 K/uL Absolute Lymphocytes 0.36 (L) 1.00 - 4.80 K/ul Absolute Monocytes 0.06 0.00 - 1.10 K/uL Absolute Eosinophils 0.00 0.00 - 0.70 K/uL Absolute Basophils 0.01 0.00 - 0.20 K/uL DIFFERENTIAL, TECHNOLOGIST REVIEW Result Value Ref Range nRBCs IMPRESSION/PLAN: Malignant neoplasm of upper-inner quadrant of left breast in female, estrogen receptor negative. Lab results reviewed: Mild increase in LFTs with AST 37 and ALT 38 Mild neutropenia with ANC 1.64 Otherwise unremarkable Ok for C2D8 of neoadjuvant Pembro/Carbo/Taxol today as scheduled Tolerating treatment plan remarkably well with no signs or symptoms of toxicity noted. Will continue to closely monitor for CIPN Plan to move forward with left lumpectomy and sentinel node biopsy after completion of chemotherapy Genetics referral pending RTC in five weeks with provider for chemo return RTC in eight weeks with physician for chemo return BO Elizondo documented in this encounter Nursing Notes * Demi Preciado MED ASSIST - 12/06/2023 8:43 AM EDT Patient identifed by name and birthdate Do you have any concerns about pain management for today's visit? Yes. Patient instructed to discuss pain concerns with provider during the visit today Living Will or Advance Directive for Health Care as noted on the problem list. [facility] is a way you can talk to your provider on line through e-mail. Would you like to sign up? I can activate it for you? ALREADY ACTIVE Filed Vitals: 12/06/23 0841 BP: 173/92 Pulse: 91 Resp: 16 Temp: 36.4 C (97.6 F) TempSrc: Rectal SpO2: 93% Weight: 61.2 kg (135 lb) Patient was instructed to not get [...] comprehension of instructions. documented in this encounter Plan of Treatment Upcoming Encounters Date Type Department Care Team (Late st Contact Info) Description 12/12/2023 10:00 AM EDT Laboratory [facility] [address] [place] [phone] Basilio Vasquez Scene [address] [place] [address] [address] 12/12/2023 11:00 AM EDT Hem/Onc Treatment Hematology/Oncology Treatment, [place] [address] [place] [address] Park, Chair 6 Hem Onc Scenery [address] [place] [address] 12/20/2023 8:00 AM EDT Laboratory Laboratory [facility] [place] [address] [place] [address] Christina, Lab Scenery [address] [place] [address] 12/20/2023 9:00 AM EDT Hem/Onc Treatment Hematology/Oncology Treatment, [place] [address] [place] [address] Christina, Chair 6 Hem Onc Scenery [address] [place] [address] 12/27/2023 9:10 AM EDT Laboratory Laboratory [facility] [place] [address] [place] [address] Christina, Lab Scenery [address] [place] [address] 12/27/2023 10:15 AM EDT [facility] [address] [place] [address] Christina, Chair 8 Hem Onc Scenery [address] [place] [address] 01/03/2024 8:00 AM EDT Laboratory Laboratory [facility] [place] [address] [place] [address] Christina, Lab Scenery [address] [place] [address] 01/03/2024 9:00 AM EDT Hem/Onc Treatment Hematology/Oncology Treatment, [address] [place] [address] Christina, Chair 6 Hem Onc Scenery [address] [place], [place] [address] 01/10/2024 8:30 AM EDT Laboratory Laboratory [facility] [place] [address] [place], [place] [phone] Christina, Lab Scenery [address] [place], [place] [address] 01/10/2024 9:00 AM EDT Office Visit Hematology/Oncology [facility] [place] [address] [place], [place] [phone] Alissa Roldan CRNP [address] [place] [address] 01/10/2024 9:30 AM EDT Hem/Onc Treatment Hematology/Oncology Treatment, [place] [address] [place], [place] [phone] Christina, Chair 9 Hem Onc Scenery [address] [place], [place] [address] 01/31/2024 9:00 AM EDT Office Visit Hematology/Oncology [facility] [place] [address] [place], [place] [phone] Nas Palacios MD [address] [place], [place] [address] 02/03/2024 10:30 AM EDT Telemedicine Genetics HemOnc, [facility] [address] [place] [address] [place]abel [place], [place] [address] [place], [place] [phone] 03/16/2024 2:40 PM EDT Office Visit [address] [address] [facility] [address] [facility] [address] 04/10/2024 10:30 AM EST Imaging Radiology, [address] [place] [address] Health Maintenance Due Date Last Done Comments DXA Scan 1940 Albumin/Creatinine Ratio 09/16/1958 COVID-19 Vaccine (3 2022- season) 2023 09/16/2020, 08/15/2020 HbA1c 05/06/2023 [...] this encounter Medical Devices Implanted Type Area Environmental Conflict Manager Device Identifier Shelf Expiration Date Model / Serial / Lot Port Power Mri W8fr Cath - [id number] Implanted:Qty: 1 on 11/02/2023 by Mariah Abdul MD at OR [facility] Right: Chest CR BARD : PERIPHERAL VASCULAR 08/20/2024 [id number] / / [id number] documented as of this encounter Visit Diagnoses Diagnosis Malignant neoplasm of upper-inner quadrant of left breast in female, estrogen receptor negative (HCC)- Primary documented in this encounter Advance Directives * Full Code (Latest Code Status on File) Date Activated Date Inactivated Comments 11/02/2023 11:37 AM 11/02/2023 6:38 PM This order reflects the patients wishes and were consensually agreed upon. Question Answer Comments Discussion of Advance Directives occurred with: Patient Care Teams Clinical Appeals Reviewer Relationship Specialty Start Date End Date Toby Bell MD [address] [place] [address] PCP - General Family Medicine 02/08/22 documented as of this encounter
--- OUTSIDE RECORDS SUMMARY | 2023-12-28 23:59 | External Medical Summary ---
Author Name Unknown Address Unknown Organization K09:[facility] [place] [address] Laboratory Report Ordering Provider Test Date Status LEANN ROWELL 12/12/2023 10:34:28 Final Observation Date Value Abnormality Reference (Units ) Status BUN 12/12/2023 10:34:28 13 6-20 (mg/dL) Final Creatinine 12/12/2023 10:34:28 0.7 0.5-1.0 (mg/dL) Final Glomerular filtration rate/1.73 sq M.predicted [Volume Rate/Area] in Serum, Plasma or Blood by Creatinine-based formula (CKD-EPI) 12/12/2023 10:34:28 86 >=60 (mL/min) Final eGFR is calculated based on the CKD-EPI 2020 equation. Sodium 12/12/2023 10:34:28 134 Below low normal 135 -146 (mmol/L) Final Potassium 12/12/2023 10:34:28 4.6 3.5-5.1 (m mol/L) Final Cl 12/12/2023 10:34:28 99 98-107 (mm ol/L) Final CO2 12/12/2023 10:34:28 21 Below low normal 22- 32 (mmol/L) Final Anion gap 12/12/2023 10:34:28 14 7-15 (mmol /L) Final Glucose 12/12/2023 10:34:28 223 Above high normal 70 -120 (mg/dL) Final Albumin 12/12/2023 10:34:28 4.0 3.8-5.0 (g /dL) Final AST (Aspartate aminotransferase) 12/12/2023 10:34:28 53 Above high normal 10-35 (U/L) Final Alk Phos 12/12/2023 10:34:28 52 35-130 (U/ L) Final Bilirubin, Total 12/12/2023 10:34:28 0.4 <=1 .2 (mg/dL) Final Calcium 12/12/2023 10:34:28 9.0 8.4-10.2 ( mg/dL) Final Protein 12/12/2023 10:34:28 6.8 6.0-8.3 (g /dL) Final ALT (Alanine aminotransferase) 12/12/2023 10:34:28 55 Above high normal 10-35 (U/L) Final Performing Location [facility] [address] [place] [address]
--- OUTSIDE RECORDS SUMMARY | 2023-12-28 23:59 | External Medical Summary | Summary of Care ---
Author Name Unknown Organization [facility] Address [address] [place] [address] Phone [phone] Care Team Providers Care Office Machine Mechanic Name Role Phone Toby Bell MD Primary Care Provider [phone]- [phone] Reason for Visit * Reason Comments Chemotherapy paclitaxel, carbopla tin. * Episode Based Medications (Routine) - Authorized Specialty Diagnoses / Procedures Referred By Ese medina Referred To Contact Diagnoses Encounter for antineoplastic chemotherapy Malignant neoplasm of upper-inner quadrant of left breast in female, estrogen receptor negative (HCC) Procedures ME PALONOSETRON HCL ME CARBOPLATIN INJECTION ME INJ PEMBROLIZUMAB ME PACLITAXEL INJECTION DOXO, EMEND, CYTOXAN-TO START 01/22/24, UDENYCA TO START 01/23/24 PER TREATMENT PLAN Nas Palacios MD [address] [place] [address] Anc Hem/Onc [address] [address] Referral ID Status Reason Start Date Expiration Date V isits Requested Visits Authorized [id number] Authorized 10/27/2023 01/16/2024 999 99 Encounter Details Date Type Department Care Team (Latest Contact Info) Description 12/06/2023 9:00 AM EDT Hem/Onc Treatment Hematology/Oncolog y Treatment, [address] [address] Christina, Chair 10 Hem Onc Scenery [address] [place] [address] Encounter for antineoplastic chemotherapy*; Malignant neoplasm of [...] No 10/11/2023 Does the household have a [facility] source of income? (Household - [...] Description 12/12/2023 10:00 AM EDT Laboratory Laboratory [facility] [place] [address] [place] [phone] Christina, Lab [facility] [address] [place] [address] 12/12/2023 11:00 AM EDT Hem/Onc Treatment Hematology/Oncology Treatment, [place] [address] [place] [phone] Christina Chair 6 Hem Onc Scenery [address] [place] [address] 12/20/2023 8:00 AM EDT Laboratory Laboratory Scenery [facility] [address] [place] [address] Park, Lab Scenery [address] [place] [address] 12/20/2023 9:00 AM EDT [facility] [address] [place] [address] Christina, Chair 6 Hem Onc Scenery [address] [place] [address] 12/27/2023 9:10 AM EDT Laboratory Laboratory [facility] [place] [address] [place], [place] [address] Christina, Lab Scenery [address] [place] [address] 12/27/2023 10:15 AM EDT [facility] [address] [place] [address] Christina, Chair 8 Hem Onc Scenery [address] [place] [address] 01/03/2024 8:00 AM EDT Laboratory Laboratory [facility] [place] [address] [place] [address] Christina, Lab Scenery [address] [place] [address] 01/03/2024 9:00 AM EDT Hem/Onc Treatment Hematology/Oncology Treatment, [place] [address] [place] [address] Christina, Chair 6 Hem Onc Scenery [address] [place] [address] 01/10/2024 8:30 AM EDT Laboratory Laboratory [facility] [place] [address] [place] [address] Christina, Lab Scenery [address] [facility] [place] [address] 01/10/2024 9:00 AM EDT Office Visit Hematology/Oncology [facility] [place] [address] [place] [phone] Alisas [facility]an [facility] [address] [facility] [address] 01/10/2024 9:30 AM EDT Hem/Onc Treatment Hematology/Oncology Treatment, [place] [address] [place], [place] [phone] Christina, Chair 9 Hem Onc [facility] [address] [facility] [place] [address] 01/31/2024 9:00 AM EDT Office Visit Hematology/Oncology [facility] [place] [address] [place] [phone] Nas Palacios MD [address] [place] [address] 02/03/2024 10:30 AM EDT Telemedicine Genetics HemOnc, [facility] [address] [place] [address] [place]abel [place], [place] [address] [place] [address] 03/16/2024 2:40 PM EDT Office Visit [facility] [address] [place] [address] Toby Bell MD [address] [place], [place] [phone] 04/10/2024 10:30 AM EST Imaging Radiology, [address] [place] [address] Health Maintenance Due Date Last Done Comments DXA Scan 1940 Albumin/Creatinine Ratio 09[birth year]16/1958 COVID-19 Vaccine ( season) 2023 09/16/2020, 08/15/2020 HbA1c 05/06/2023 11/04/2022 Influenza Vaccine (FLU shot) (#1) 2024 03/04/2023, 02/08/2022, 02/14/2020, Additional history exists Depression Screening 10/10/2024 10/11/2023 Diabetic Foot Exam 10/10/2024 10/11/2023 Diabetic Eye Exam 10/19/2024 10/20/2023, , 10/20/2023, Additional history exists GFR 12/05/2024 12/06/2023, 0712/2023, 11/21/2023, Additional history exists DTaP,Tdap,and Td Vaccines [...] this encounter Medical Devices Implanted Type Area Diet Aide Device Identifier Shelf Expiration Date Model / Serial / Lot Port Power Mri W8fr Cath - [id number] Implanted:Qty: 1 on 11/02/2023 by Mariah Abdul MD at OR [facility] Right: Chest CR BARD : PERIPHERAL VASCULAR 08/20/2024 [id number] / / [id number] documented as of this encounter Visit Diagnoses [...] Advance Directives occurred with: Patient Care Teams Office Machine Mechanic Relationship Specialty Start Date End Date Toby Bell MD [address] [place] [address] PCP - General Family Medicine 02/08/22 documented as of this encounter
[2023-12-29] MEDS: ACETAMINOPHEN 325 MG TAB PO PRN (00:05)
[2023-12-29] MEDS: SODIUM CHLORIDE 0.9% 1,000 ML IV SCH (00:42)
[2023-12-29] MEDS: KETOROLAC TROMETHAMINE 15 MG/ML VIAL IV ONE (00:43)
[2023-12-29] MEDS: CEFEPIME 2,000 MG in SYRINGE 0 ML IV SCH (06:01)
[2023-12-29] MEDS: HEPARIN 100 UNIT/ML 5ML FLUSH FLUSH PRN (06:01)
[2023-12-29 06:45] LABS: Basophils # (auto) 0.02 K/uL (0.00-0.20); Basophils % (auto) 0.8 %; Eosinophils # (auto) 0.01 K/uL (0.00-0.50); Eosinophils % (auto) 0.4 %; Hematocrit (blood only) 29.2 % (37.0-47.0); Hemoglobin 9.8 g/dl (12.0-16.0); Immature Granulocytes # (auto) 0.01 K/uL (0.01-0.20); Immature Granulocytes % (auto) 0.4 %; Lymphocytes # (auto) 0.66 K/uL (1.20-3.40); Mean Corpuscular Hgb Conc 33.6 g/dL (32.0-36.0); Mean Corpuscular Volume 95.4 fL (80.0-100.0); Mean Platelet Volume 10.7 fL (9.4-12.4); Monocytes # (auto) 0.22 K/uL (0.11-0.59); Monocytes % (auto) 8.3 %; Neutrophils # (auto) 1.72 K/uL (1.40-6.50); Neutrophils % (auto) 65.1 %; Platelet Count 145 K/uL (130-400); RDW Coefficient of Variation 18.3 % (11.5-14.5); RDW Standard Deviation 62.9 fL (36.4-46.3); Red Blood Count 3.06 M/uL (4.20-5.40); White Blood Count 2.64 K/ul (4.8-10.8)
[2023-12-29 07:01] LABS: BUN Creatinine Ratio 28.4 (10-20); Calcium 7.5 mg/dl (8.6-10.3); Creatinine Clr Calc Pharmacy 56.2 ml/min; Est GFR (African American) 93.6 ml/min; Est GFR (Non-African American) 80.7 ml/min; Magnesium 1.8 mg/dl (1.7-2.4); Potassium 3.8 mmol/L (3.5-5.1)
[2023-12-29 07:16] LABS: Thyroid Stimulating Hormone 0.794 uIu/ml (0.300-4.500)
[2023-12-29] MEDS: LOSARTAN POTASSIUM 25 MG TAB PO SCH (08:46)
[2023-12-29] MEDS: CHOLECALCIFEROL 25 MCG (1000 UNITS) TAB PO SCH (09:51)
--- NOTE | 2023-12-29 11:34 | Electrocardiogram Report ---
Test Reason : Blood Pressure : */* mmHG Vent. Rate : 85 BPM Atrial Rate : 85 BPM P-R Int : 106 ms QRS Dur : 74 ms QT Int : 380 ms P-R-T Axes : 20 -23 38 degrees QTcB Int : 452 ms Sinus rhythm with short NY with Premature atrial complexes with Aberrant conduction Minimal voltage criteria for LVH, may be normal variant Borderline ECG When compared with ECG of 07-Dec-2023 10:54, QRS voltage has increased Nonspecific T wave abnormality has replaced inverted T waves in Inferior leads Nonspecific T wave abnormality, improved in Anterolateral leads Confirmed by Rohan Hobbs ([id number]) on 12/29/2023 11:33:26 AM Referred By: Confirmed By: Rohan Hobbs
--- NOTE | 2023-12-29 16:06 | Hospitalist Progress Note ---
Date of Service December 29, 2023 Assessment & Plan (1) Fever: (2) Immunocompromised: Plan: This is an 83-year-old female who has significant past medical history of left breast cancer (Invasive mammary carcinoma grade 3), HTN, HLD, DM II, presents to ED secondary with c/o fever and chills today, temp 103F at home. Denies N/V/D, abdominal pain, CP, SOB, cough or urinary symptoms. Fever--likely secondary to chemotherapy Immunocompromise state H/O similar fever/chills after chemo in 11/2023 with unremarkable infectious workup at that time. --S/P Chemo 12/27/23 --Blood cultures pending --Bio fire negative --UA not suggestive of UTI --CXR:No acute abnormalities and in particular no radiographic evidence of pneumonia. No obvious source of infection Empirically on IV cefepime Obtain stool studies if tolerates diarrhea Needs follow-up with oncology on discharge (3) Hypomagnesemia: Plan: Magnesium: 1.6 on presentation Replace and monitor (4) Hypocalcemia: Plan: Corrected calcium levels minimally low Received IV calcium Will consider adding oral calcium supplements if needed Vitamin D deficiency Started on vitamin D supplements (5) Hyponatremia: Plan: Received IV fluids Sodium improved to 134 Monitor (6) Oral thrush: Plan: Continue nystatin (7) Hypertension: Plan: BP stable Continue losartan DM II HbA1c 7.2 Diet controlled Currently not on any maintenance medications (8) Breast cancer in female: Plan: Left breast cancer (Invasive mammary carcinoma grade 3) Currently on chemotherapy. Last on 12/27/[address] Palacios as outpatient Needs follow-up with oncology on discharge DVT Px Lovenox SQ CODE STATUS Full code Admission and Anticipated Discharge Date Admission Date: December 28, 2023 Subjective Patient is seen and examined at bedside Was febrile overnight and this afternoon Patient subjectively feels well Offers no new complaints Denies any chest pain, dyspnea, nausea, vomiting, abdominal pain, diarrhea Blood cultures currently pending Review of Systems Review of Systems: All systems reviewed & are unremarkable except as noted in Subjective Physical Exam Physical Exam: Physical Exam: Vitals signs as noted above General Appearance:No apparent distress, chronic ill-appearing Head: normocephalic, Atraumatic Eyes: normal inspection, EOMI Neck: supple, Trachea midline Respiratory/Chest: Normal breath sounds, CTA, +Chemo Port, No accessory muscle use Cardiovascular: S1, S2, No murmur Abdomen/GI:Soft, Non tender, Bowel sounds present Extremities/Musculoskeletal:normal inspection, no edema Neurologic/Psych:AAOX3, grossly no focal neurological deficits Skin: normal color, warm Results & Data Results & Data Vital Signs (Past 12 Hours) Vital Signs Temp Pulse Pulse Resp BP Pulse Ox O2 Del Method 12/29/23 11:49 37.2 C 62 18 125/65 94 Room Air 12/29/23 07:36 37.0 C 62 18 123/69 93 Room Air 12/29/23 07:09 60 Laboratory Results Short CBC 12/28/23 12/29/23 Range/Units 17:09 05:49 WBC 4.51 L 2.64 L (4.8-10.8) K/ul Hgb 11.0 L 9.8 L (12.0-16.0) g/dl Hct 33.2 L 29.2 L (37.0-47.0) % Plt Count 172 145 (130-400) K/uL BMP 12/28/23 12/29/23 17:09 05:49 Sodium 131 L 134 L Potassium 3.9 3.8 Chloride 100 104 Carbon Dioxide 24 25 BUN 19 19 Creatinine 0.70 0.67 Glucose 128 H 104 H Calcium 7.8 L 7.5 L Liver Function 12/28/23 Range/Units 17:09 Total Bilirubin 0.6 (0.2-1.0) mg/dl Direct Bilirubin 0.1 (0-0.2) mg/dl AST 26 (13-39) U/L ALT 16 (7-52) U/L Alkaline Phosphatase 52 (34-104) U/L Albumin 3.4 (3.4-5.0) gm/dl Urine 12/28/23 Range/Units 17:39 Urine Color Yellow Urine Appearance Clear (Clear) Urine pH 5.5 (4.5-7.5) Ur Specific [place] 1.031 H (1.000-1.030) Urine Protein 1+ H (Negative) Urine Glucose (UA) Negative (Negative) (1) Fever Fever type: unspecified Qualified Code(s): R50.9 - Fever, unspecified
[2023-12-30 06:17] LABS: Basophils # (auto) 0.02 K/uL (0.00-0.20); Eosinophils # (auto) 0.02 K/uL (0.00-0.50); Hematocrit (blood only) 34.9 % (37.0-47.0); Hemoglobin 11.7 g/dl (12.0-16.0); Immature Granulocytes # (auto) 0.01 K/uL (0.01-0.20); Immature Granulocytes % (auto) 0.5 %; Lymphocytes # (auto) 0.62 K/uL (1.20-3.40); Mean Corpuscular Hemoglobin 32.1 pg (25.0-34.0); Mean Corpuscular Hgb Conc 33.5 g/dL (32.0-36.0); Mean Corpuscular Volume 95.6 fL (80.0-100.0); Mean Platelet Volume 10.3 fL (9.4-12.4); Monocytes # (auto) 0.19 K/uL (0.11-0.59); Monocytes % (auto) 9.2 %; Neutrophils # (auto) 1.21 K/uL (1.40-6.50); Neutrophils % (auto) 58.3 %; Platelet Count 156 K/uL (130-400); RDW Coefficient of Variation 17.2 % (11.5-14.5); RDW Standard Deviation 59.7 fL (36.4-46.3); Red Blood Count 3.65 M/uL (4.20-5.40); White Blood Count 2.07 K/ul (4.8-10.8)
[2023-12-30 06:40] LABS: BUN Creatinine Ratio 24.6 (10-20); Calcium 8.6 mg/dl (8.6-10.3); Creatinine Clr Calc Pharmacy 61.8 ml/min; Est GFR (African American) 96.5 ml/min; Est GFR (Non-African American) 83.2 ml/min; Magnesium 1.6 mg/dl (1.7-2.4); Potassium 3.8 mmol/L (3.5-5.1)
[2023-12-30] MEDS: MAGNESIUM SULFATE / D5W 1 GM/100 ML BAG IV ONE (12:53)
--- NOTE | 2023-12-30 14:15 | Hospitalist Progress Note ---
Date of Service December 30, 2023 Assessment & Plan (1) Fever: (2) Immunocompromised: Plan: This is an 83-year-old female who has significant past medical history of left breast cancer (Invasive mammary carcinoma grade 3), HTN, HLD, DM II, presents to ED secondary with c/o fever and chills today, temp 103F at home. Denies N/V/D, abdominal pain, CP, SOB, cough or urinary symptoms. Fever--likely secondary to chemotherapy Immunocompromise state H/O similar fever/chills after chemo in 11/2023 with unremarkable infectious workup at that time. --S/P Chemo 12/27/23 --Blood cultures: No growth to date --Bio fire negative --UA not suggestive of UTI --CXR:No acute abnormalities and in particular no radiographic evidence of pneumonia. No obvious source of infection Empirically on IV cefepime Obtain stool studies if tolerates diarrhea Needs follow-up with oncology on discharge Afebrile today Likely discharge in 1 to 2 days (3) Hypomagnesemia: Plan: Magnesium: 1.6 on presentation Replace and monitor (4) Hypocalcemia: Plan: Corrected calcium levels minimally low Received IV calcium Likely due to vitamin D deficiency Monitor Vitamin D deficiency Started on vitamin D supplements (5) Hyponatremia: Plan: Received IV fluids Sodium improved to 137 Monitor (6) Oral thrush: Plan: Continue nystatin (7) Hypertension: Plan: BP stable Continue losartan DM II HbA1c 7.2 Diet controlled Currently not on any maintenance medications (8) Breast cancer in female: Plan: Left breast cancer (Invasive mammary carcinoma grade 3) Currently on chemotherapy. Last on 12/27/[address] Palacios as outpatient Needs follow-up with oncology on discharge DVT Px Lovenox SQ CODE STATUS Full code Admission and Anticipated Discharge Date Admission Date: December 28, 2023 Subjective Patient is seen and examined at bedside States feeling better today Afebrile today No new complaints Appetite improving Denies any chest pain, dyspnea, nausea, vomiting, abdominal pain, diarrhea Blood cultures remain negative Review of Systems Review of Systems: All systems reviewed & are unremarkable except as noted in Subjective Physical Exam Physical Exam: Physical Exam: Vitals signs as noted above General Appearance:No apparent distress, chronic ill-appearing Head: normocephalic, Atraumatic Eyes: normal inspection, EOMI Neck: supple, Trachea midline Respiratory/Chest: Normal breath sounds, CTA, +Chemo Port, No accessory muscle use Cardiovascular: S1, S2, No murmur Abdomen/GI:Soft, Non tender, Bowel sounds present Extremities/Musculoskeletal:normal inspection, no edema Neurologic/Psych:AAOX3, grossly no focal neurological deficits Skin: normal color, warm Results & Data Results & Data Vital Signs (Past 12 Hours) Vital Signs Temp Pulse Pulse Resp BP Pulse Ox O2 Del Method 12/30/23 14:11 71 12/30/23 11:57 36.9 C 74 18 121/63 96 Room Air 12/30/23 07:37 36.7 C 73 18 115/73 95 Room Air 12/30/23 07:13 76 12/30/23 02:45 36.6 C 65 18 159/63 H 94 Room Air Laboratory Results Short CBC 12/30/23 Range/Units 05:55 WBC 2.07 L (4.8-10.8) K/ul Hgb 11.7 L (12.0-16.0) g/dl Hct 34.9 L (37.0-47.0) % Plt Count 156 (130-400) K/uL BMP 12/30/23 05:55 Sodium 137 Potassium 3.8 Chloride 104 Carbon Dioxide 26 BUN 15 Creatinine 0.61 Glucose 128 H Calcium 8.6 (1) Fever Fever type: unspecified Qualified Code(s): R50.9 - Fever, unspecified
[2023-12-30] MEDS: MAGNESIUM CHLORIDE W/CALCIUM 64MG DELAYED REL TAB PO SCH (20:32)
[2023-12-31 03:29] VITALS: TEMP 97.7
[2023-12-31 06:27] LABS: Hematocrit (blood only) 32.6 % (37.0-47.0); Hemoglobin 11.2 g/dl (12.0-16.0); Mean Corpuscular Hemoglobin 32.5 pg (25.0-34.0); Mean Corpuscular Hgb Conc 34.4 g/dL (32.0-36.0); Mean Corpuscular Volume 94.5 fL (80.0-100.0); Mean Platelet Volume 10.7 fL (9.4-12.4); Platelet Count 155 K/uL (130-400); RDW Coefficient of Variation 16.9 % (11.5-14.5); RDW Standard Deviation 58.4 fL (36.4-46.3); Red Blood Count 3.45 M/uL (4.20-5.40); White Blood Count 1.77 K/ul (4.8-10.8)
[2023-12-31 06:34] LABS: BUN Creatinine Ratio 26.6 (10-20); Calcium 8.7 mg/dl (8.6-10.3); Creatinine Clr Calc Pharmacy 58.9 ml/min; Est GFR (Non-African American) 81.9 ml/min; Magnesium 1.6 mg/dl (1.7-2.4); Potassium 3.6 mmol/L (3.5-5.1)
[2023-12-31 06:50] LABS: Basophils # (auto) 0.02 K/uL (0.00-0.20); Basophils % (auto) 1.1 %; Eosinophils # (auto) 0.02 K/uL (0.00-0.50); Eosinophils % (auto) 1.1 %; Immature Granulocytes # (auto) 0.01 K/uL (0.01-0.20); Immature Granulocytes % (auto) 0.6 %; Lymphocytes # (auto) 0.66 K/uL (1.20-3.40); Lymphocytes % (auto) 37.3 %; Monocytes # (auto) 0.17 K/uL (0.11-0.59); Monocytes % (auto) 9.6 %; Neutrophils # (auto) 0.89 K/uL (1.40-6.50); Neutrophils % (auto) 50.3 %
[2023-12-31 08:04] VITALS: RESP 18; O2SAT 95
[2023-12-31] MEDS: MAGNESIUM SULFATE / D5W 1 GM/100 ML BAG IV ONE (09:20)
[2023-12-31 11:18] VITALS: BP 143/85
[2023-12-31] MEDS: levoFLOXacin 750 MG TAB PO SCH (11:20)
--- NOTE | 2023-12-31 11:26 | Hospitalist Progress Note ---
Date of Service December 31, 2023 Assessment & Plan (1) Fever: (2) Immunocompromised: Plan: This is an 83-year-old female who has significant past medical history of left breast cancer (Invasive mammary carcinoma grade 3), HTN, HLD, DM II, presents to ED secondary with c/o fever and chills today, temp 103F at home. Denies N/V/D, abdominal pain, CP, SOB, cough or urinary symptoms. Fever--likely secondary to chemotherapy Immunocompromise state H/O similar fever/chills after chemo in 11/2023 with unremarkable infectious workup at that time. --S/P Chemo 12/27/23 --Blood cultures: No growth to date --Bio fire negative --UA not suggestive of UTI --CXR:No acute abnormalities and in particular no radiographic evidence of pneumonia. No obvious source of infection Empirically on IV cefepime>> transition to Levaquin Obtain stool studies if tolerates diarrhea Needs follow-up with oncology on discharge No recurrence of fever Plan to discharge home today (3) Hypomagnesemia: Plan: Magnesium: 1.6 on presentation Replace and monitor (4) Hypocalcemia: Plan: Corrected calcium levels minimally low Received IV calcium Likely due to vitamin D deficiency Monitor Vitamin D deficiency Started on vitamin D supplements (5) Hyponatremia: Plan: Received IV fluids Sodium improved to 136 Monitor (6) Oral thrush: Plan: Continue nystatin (7) Hypertension: Plan: BP stable Continue losartan DM II HbA1c 7.2 Diet controlled Currently not on any maintenance medications (8) Breast cancer in female: Plan: Left breast cancer (Invasive mammary carcinoma grade 3) Currently on chemotherapy. Last on 12/27/[address] Palacios as outpatient Needs follow-up with oncology on discharge DVT Px Lovenox SQ CODE STATUS Full code Disposition Home Admission and Anticipated Discharge Date Admission Date: December 28, 2023 Subjective Patient is seen and examined at bedside Doing well No new complaints Cultures remain negative Plan to be discharged home today Denies any chest pain, dyspnea, nausea, vomiting, abdominal pain, diarrhea Discussed with family at bedside Review of Systems Review of Systems: All systems reviewed & are unremarkable except as noted in Subjective Physical Exam Physical Exam: Physical Exam: Vitals signs as noted above General Appearance:No apparent distress, chronic ill-appearing Head: normocephalic, Atraumatic Eyes: normal inspection, EOMI Neck: supple, Trachea midline Respiratory/Chest: Normal breath sounds, CTA, +Chemo Port, No accessory muscle use Cardiovascular: S1, S2, No murmur Abdomen/GI:Soft, Non tender, Bowel sounds present Extremities/Musculoskeletal:normal inspection, no edema Neurologic/Psych:AAOX3, grossly no focal neurological deficits Skin: normal color, warm Results & Data Results & Data Vital Signs (Past 12 Hours) Vital Signs Temp Pulse Pulse Resp BP Pulse Ox O2 Del Method 12/31/23 11:16 36.5 C 72 18 143/85 H 95 Room Air 12/31/23 08:03 36.5 C 74 18 126/75 95 Room Air 12/31/23 07:34 72 12/31/23 03:28 36.5 C 74 20 100/61 98 Room Air 12/31/23 00:11 36.8 C 60 18 92/51 L 92 Room Air Laboratory Results Short CBC 12/31/23 Range/Units 05:55 WBC 1.77 L (4.8-10.8) K/ul Hgb 11.2 L (12.0-16.0) g/dl Hct 32.6 L (37.0-47.0) % Plt Count 155 (130-400) K/uL BMP 12/31/23 05:55 Sodium 136 Potassium 3.6 Chloride 103 Carbon Dioxide 27 BUN 17 Creatinine 0.64 Glucose 128 H Calcium 8.7 (1) Fever Fever type: unspecified Qualified Code(s): R50.9 - Fever, unspecified
--- NOTE | 2023-12-31 11:39 | Discharge Summary ---
Date of Service December 31, 2023 Admission HPI Per Admitting Provider This is an 83-year-old female who has significant past medical history of left breast cancer (Invasive mammary carcinoma grade 3), HTN, HLD, DM II, presents to ED secondary with c/o fever and chills today. History obtained from patient, patient's family and inpatient and outpatient chart review. On chemotherapy (carboplatin and taxol) with the next step to be a left lumpectomy and sentinel node biopsy under general anesthesia. Chart reviewed and history of hospitalization 12/07/2023-12/10/2023 for fever, generalized weakness, chemotherapy-induced pancytopenia after receiving chemotherapy. During that hospitalization was initially placed on empiric antibiotics, negative infectious workup of blood cultures, CXR, stool PCR, respiratory bio fire, UA and was discharged on empiric antibiotics with Augmentin and Cipro. Was treated for oral thrush also. Was doing well at home. Had chemo yesterday, 12/27/23. States couldn't sleep last and was having some cramping of bilateral legs. Today feeling tired and having chills. Reports fever 103F at home. States been eating and drinking ok. Denies nausea, vomiting, or diarrhea recently since last admission. Denies CRAIN, dizziness, syncope, vision changes, neck pain, CP, SOB, palpitations, cough, sore throat, otalgia, rhinorrhea, abdominal pain, paresthesias, extremity edema, rashes, urinary symptoms. Admission Exam Per Admitting Provider VS noted and reviewed oriented x 3, not in distress, speaks in sentences with no effort nor accessory muscle use normal rate, regular rhythm, no murmurs clear breath sounds bilaterally non distended, soft, nontender no bipedal edema, erythema, warmth no neuro deficits Principal Diagnosis Febrile neutropenia Immunocompromise state Hypomagnesemia Hypocalcemia Vitamin D deficiency Hyponatremia Discharge Data Allergies Allergy/AdvReac Type Severity Reaction Status Date / Time lisinopril Allergy Severe Swelling Verified 12/28/23 16:47 of Lip/Tongue/Throat oxymetazoline Allergy Intermediate Hives Verified 12/28/23 16:47 [From Daily Tejeda] Consultations 12/28/23 18:36 ED Decision to Admit Stat Procedures Performed Laboratory Results WBC 1.77 K/ul (4.8-10.8) L 12/31/23 05:55 RBC 3.45 M/uL (4.20-5.40) L 12/31/23 05:55 Hgb 11.2 g/dl (12.0-16.0) L 12/31/23 05:55 Hct 32.6 % (37.0-47.0) L 12/31/23 05:55 MCV 94.5 fL (80.0-100.0) 12/31/23 05:55 MCH 32.5 pg (25.0-34.0) 12/31/23 05:55 MCHC 34.4 g/dL (32.0-36.0) 12/31/23 05:55 RDW Std Deviation 58.4 fL (36.4-46.3) H 12/31/23 05:55 RDW Coeff of Ann 16.9 % (11.5-14.5) H 12/31/23 05:55 Plt Count 155 K/uL (130-400) 12/31/23 05:55 MPV 10.7 fL (9.4-12.4) 12/31/23 05:55 Immature Gran % (Auto) 0.6 % 12/31/23 05:55 Neut % (Auto) 50.3 % 12/31/23 05:55 Lymph % (Auto) 37.3 % 12/31/23 05:55 [place] % (Auto) 9.6 % 12/31/23 05:55 Eos % (Auto) 1.1 % 12/31/23 05:55 Baso % (Auto) 1.1 % 12/31/23 05:55 Neut # (Auto) 0.89 K/uL (1.40-6.50) L* 12/31/23 05:55 Lymph # (Auto) 0.66 K/uL (1.20-3.40) L 12/31/23 05:55 [place] # (Auto) 0.17 K/uL (0.11-0.59) 12/31/23 05:55 Eos # (Auto) 0.02 K/uL (0.00-0.50) 12/31/23 05:55 Baso # (Auto) 0.02 K/uL (0.00-0.20) 12/31/23 05:55 Immature Gran # (Auto) 0.01 K/uL (0.01-0.20) 12/31/23 05:55 PT 10.9 Seconds (9.0-12.0) 12/28/23 17:09 INR 1.0 (0.9-1.1) 12/28/23 17:09 APTT 24 Seconds (21-31) 12/28/23 17:09 PTT Ratio 0.9 12/28/23 17:09 Sodium 136 mmol/L (136-145) 12/31/23 05:55 Potassium 3.6 mmol/L (3.5-5.1) 12/31/23 05:55 Chloride 103 mmol/L (98-107) 12/31/23 05:55 Carbon Dioxide 27 mmol/L (21-32) 12/31/23 05:55 Anion Gap 6 (3-11) 12/31/23 05:55 BUN 17 mg/dl (6-23) 12/31/23 05:55 Creatinine 0.64 mg/dl (0.6-1.2) 12/31/23 05:55 Est Cr Clr Drug Dosing 58.9 ml/min 12/31/23 05:55 Est GFR ( Amer) 95.0 ml/min 12/31/23 05:55 Est GFR (Non-Af Amer) 81.9 ml/min 12/31/23 05:55 BUN/Creatinine Ratio 26.6 (10-20) H 12/31/23 05:55 Glucose 128 mg/dl (70-99(Fasting)) H 12/31/23 05:55 Lactate 1.5 mmol/L (0.4-2.0) 12/28/23 17:09 Calcium 8.7 mg/dl (8.6-10.3) 12/31/23 05:55 Magnesium 1.6 mg/dl (1.7-2.4) L 12/31/23 05:55 Total Bilirubin 0.6 mg/dl (0.2-1.0) 12/28/23 17:09 Direct Bilirubin 0.1 mg/dl (0-0.2) 12/28/23 17:09 AST 26 U/L (13-39) 12/28/23 17:09 ALT 16 U/L (7-52) 12/28/23 17:09 Alkaline Phosphatase 52 U/L (34-104) 12/28/23 17:09 Troponin I High Sens 14.7 pg/ml (0-14) H 12/28/23 17:09 Total Protein 5.8 gm/dl (6.0-8.3) L 12/28/23 17:09 Albumin 3.4 gm/dl (3.4-5.0) 12/28/23 17:09 25-OH Vitamin D Total 23.5 ng/ml (30-100) L 12/29/23 05:49 Procalcitonin 0.19 ng/ml (0-0.5) 12/28/23 17:09 TSH 0.794 uIu/ml (0.300-4.500) 12/29/23 05:49 PTH Intact 127.4 pg/ml (12.0-88.0) H 12/29/23 05:49 Urine Color Yellow 12/28/23 17:39 Urine Appearance Clear (Clear) 12/28/23 17:39 Urine pH 5.5 (4.5-7.5) 12/28/23 17:39 Ur Specific [place] 1.031 (1.000-1.030) H 12/28/23 17:39 Urine Protein 1+ (Negative) H 12/28/23 17:39 Urine Glucose (UA) Negative (Negative) 12/28/23 17:39 Urine Ketones Trace (Negative) H 12/28/23 17:39 Urine Blood Negative (Negative) 12/28/23 17:39 Urine Nitrite Negative (Negative) 12/28/23 17:39 Urine Bilirubin Negative (Negative) 12/28/23 17:39 Urine Urobilinogen Negative (Negative) 12/28/23 17:39 Ur Leukocyte Esterase Negative (Negative) 12/28/23 17:39 Urine WBC (Auto) 0-5 /hpf (0-5) 12/28/23 17:39 Urine RBC (Auto) 0-2 /hpf (0-2) 12/28/23 17:39 U Hyaline Cast (Auto) 0-2 /lpf (0-2) 12/28/23 17:39 U Epithel Cells (Auto) 3-5 /hpf (0-2) H 12/28/23 17:39 Urine Bacteria (Auto) None Seen (None Seen) 12/28/23 17:39 Nasal Screen MRSA (PCR) Negative (Negative) 12/29/23 00:30 Adenovirus (PCR) Not Detected (NotDetected) 12/28/23 17:19 B. pertussis DNA (PCR) Not Detected (NotDetected) 12/28/23 17:19 B.parapertussis DNA PCR Not Detected (NotDetected) 12/28/23 17:19 C. pneumoniae DNA (PCR) Not Detected (NotDetected) 12/28/23 17:19 Coronavirus OC43 (PCR) Not Detected (NotDetected) 12/28/23 17:19 Coronavirus HKU1 (PCR) Not Detected (NotDetected) 12/28/23 17:19 Coronavirus 229E (PCR) Not Detected (NotDetected) 12/28/23 17:19 SARS-CoV-2 (PCR) Not Detected (NotDetected) 12/28/23 17:19 Coronavirus NL63 (PCR) Not Detected (NotDetected) 12/28/23 17:19 Human Metapneumovir PCR Not Detected (NotDetected) 12/28/23 17:19 Influenza Type A (PCR) Not Detected (NotDetected) 12/28/23 17:19 Influenza Type B (PCR) Not Detected (NotDetected) 12/28/23 17:19 M. pneumoniae (PCR) Not Detected (NotDetected) 12/28/23 17:19 Parainfluenza 1 (PCR) Not Detected (NotDetected) 12/28/23 17:19 Parainfluenza 2 (PCR) Not Detected (NotDetected) 12/28/23 17:19 Parainfluenza 3 (PCR) Not Detected (NotDetected) 12/28/23 17:19 Parainfluenza 4 (PCR) Not Detected (NotDetected) 12/28/23 17:19 RSV (PCR) Not Detected (NotDetected) 12/28/23 17:19 Entero/Rhino (PCR) Not Detected (NotDetected) 12/28/23 17:19 Impressions Chest X-Ray 12/28/23 15:52 XR chest 1V portable CLINICAL HISTORY: Sepsis TECHNIQUE: Single frontal radiograph of the chest was obtained. Comparison: Comparison is made to chest radiograph 12/03/2023 FINDINGS: A port catheter is seen. Calcified aortic knob is seen. The lungs are clear. No evidence of pleural effusion or pneumothorax. IMPRESSION: No acute abnormalities and in particular no radiographic evidence of pneumonia. ACT 112: Negative or not required by law. Electronically signed by: Maurice Amado M.D. 12/28/2023 4:15 PM Hospital Course (1) Fever: (2) Immunocompromised: This is an 83-year-old female who has significant past medical history of left breast cancer (Invasive mammary carcinoma grade 3), HTN, HLD, DM II, presents to ED secondary with c/o fever and chills today, temp 103F at home. Denies N/V/D, abdominal pain, CP, SOB, cough or urinary symptoms. Fever--likely secondary to chemotherapy Immunocompromise state H/O similar fever/chills after chemo in 11/2023 with unremarkable infectious workup at that time. --S/P Chemo 12/27/23 --Blood cultures: No growth to date --Bio fire negative --UA not suggestive of UTI --CXR:No acute abnormalities and in particular no radiographic evidence of pneumonia. No obvious source of infection Empirically on IV cefepime>> transition to Levaquin Obtain stool studies if tolerates diarrhea Needs follow-up with oncology on discharge No recurrence of fever Plan to discharge home today (3) Hypomagnesemia: Magnesium: 1.6 on presentation Replace and monitor (4) Hypocalcemia: Corrected calcium levels minimally low Received IV calcium Likely due to vitamin D deficiency Monitor Vitamin D deficiency Started on vitamin D supplements (5) Hyponatremia: Received IV fluids Sodium improved to 136 Monitor (6) Oral thrush: Continue nystatin (7) Hypertension: BP stable Continue losartan DM II HbA1c 7.2 Diet controlled Currently not on any maintenance medications (8) Breast cancer in female: Left breast cancer (Invasive mammary carcinoma grade 3) Currently on chemotherapy. Last on 12/27/[address] Palacios as outpatient Needs follow-up with oncology on discharge DVT Px Lovenox SQ CODE STATUS Full code Disposition Home Total Time Total Time Spent Total Time Spent (In Minutes): 56 minutes Discharge Plan Discharge Items Patient Disposition: Home - Self-Care Reason For Visit: FEVER Discharge Diagnosis: Febrile neutropenia Immunocompromise state Hypomagnesemia Hypocalcemia Vitamin D deficiency Hyponatremia Activity: Per Instructions section Exercise/Sports: Wait until after follow-up appointment Non-emergency contact: Primary Care Provider and Oncologist Call non-emergency contact if: you have any medication questions, your symptoms worsen, your pain is concerning for you and you have a fever Follow-up/Referrals: Toby Bell MD [Primary Care Provider] - (Date & Time 01/05/2024 11:20 AM Provider Cayden Meza MD [facility] ) Diet: Carb Consistent or DM2 Addtl Attending Provider Instructions: Follow-up with your primary care physician on 01/05/2024 11:20 AM Follow-up with your oncologist next week as scheduled --Your final blood cultures are pending at the time of discharge. Follow-up with your physician for results. -- Complete the antibiotic course levofloxacin as prescribed --Get blood work (complete blood count with differential, basic metabolic panel and magnesium levels) in 1 week and follow-up with a physician for further instructions Seek immediate medical attention if your symptoms reoccur or worsen Please take all medications as instructed on discharge list below. Please call if you have any questions or problems. You can reach a [facility] hospitalist on duty at [facility] 24 hours a day by calling [phone] Pending Studies at Discharge: Yes Studies:: Blood cultures Stand-Alone Forms: [facility], Smoking Cessation Medications and DC Order Prescriptions: New levofloxacin 750 mg Tablet 750 mg PO DAILY@1100 Qty: 4 0RF nystatin 500,000 unit Tablet 500,000 unit PO QID 7 Days Qty: 28 0RF magnesium oxide 400 mg (241.3 mg magnesium) Tablet 400 mg PO QAM Qty: 30 0RF cholecalciferol (vitamin D3) 25 mcg (1,000 unit) Capsule 25 mcg PO QAM Qty: 30 0RF Continued dexamethasone 4 mg tablet 8 mg PO DIRECTED Rx Instructions: TAKES 8 MG--12 HRS AND 6 HRS PRIOR TO CHEMO. PreserVision AREDS-2 250-90-40-1 mg Capsule 1 tab PO BID losartan 50 mg tablet 75 mg PO DAILY ondansetron HCl 8 mg tablet 8 mg PO Q8 PRN (Reason: Nausea And Vomiting) lidocaine-prilocaine 2.5-2.5 % cream 1 applic topical DIRECTED PRN (Reason: PORT ACCESS) Rx Instructions: Apply to skin over mediport and cover 1 hr prior to accessing loperamide 2 mg Capsule 2 mg PO Q6H PRN (Reason: loose stool) Qty: 20 0RF Discharge Orders: Discharge Order (Routine); Ordered 12/31/23 Ordered By: Sagar Moe Admission Data Admit Date/Time: 12/28/23 18:56 Attending Provider: Sagar Moe Admit Provider: Reg Rhodes Primary Care Provider: Toby Bell Other Providers: Reg Rhodes; [place]
[2023-12-31 13:07] VITALS: PULSE 62
[2024-01-01] MEDS ORDERED: MAGNESIUM OXIDE 400 MG TAB PO SCH (09:00)
== END 2023-12-31 13:39 | disposition home health service (06) | DRG 809 ==
LOC: ED 15:42 → 2W 18:56 → SUATTDRO 18:56 → 2W 20:01